=== PATIENT | female | born 1955 | race Caucasian/White ===

== ENCOUNTER 2024-07-21 09:51 | Emergency (ER) | payer MEDICARE, MEDICAID, SELFPAY ==
[2024-07-21 09:53] VITALS: BP 138/94; PULSE 97; TEMP 36.7; O2SAT 94; BMI 37.1
--- NOTE | 2024-07-21 10:00 | ED_ITS ---
HPI HPI - General Adult General Chief complaint: Abdominal Pain Stated complaint: ABDOMINAL PAIN Time Seen by Provider: 07/21/24 09:54 Mode of arrival: walk-in History of Present Illness HPI narrative: 68 female presents to the emergency department for pain in her abdomen. It is in her right upper quadrant and she thinks it might be her gallbladder. She has never been diagnosed with any gallbladder issues in the past. She has had it for 4 days and she has had some vomiting. No trauma or fever or hematemesis. The pain is continuous. She has not been able to to eat or drink much at all. Related Data Home Medications ?Medication ?Instructions ?Recorded ?Confirmed atorvastatin 80 mg tablet 80 mg PO DAILY 07/21/24 07/21/24 clopidogrel 75 mg tablet 75 mg PO DAILY 07/21/24 07/21/24 fluoxetine 20 mg capsule 20 mg PO DAILY 07/21/24 07/21/24 furosemide 40 mg tablet 40 mg PO DAILY 07/21/24 07/21/24 gabapentin 300 mg capsule 300 mg PO DAILY 07/21/24 07/21/24 losartan 50 mg tablet 50 mg PO DAILY 07/21/24 07/21/24 metformin 500 mg tablet 500 mg PO BID 07/21/24 07/21/24 pantoprazole 40 mg tablet,delayed 40 mg PO DAILY 07/21/24 07/21/24 release potassium chloride 20 mEq 20 meq PO DAILY 07/21/24 07/21/24 tablet,extended release(part/cryst) Previous Rx's ?Medication ?Instructions ?Recorded acetaminophen 300 mg-codeine 30 mg 1 tab PO Q6H PRN pain 5 days #20 07/21/24 tablet tabs ondansetron 4 mg disintegrating 4 mg PO Q6H PRN nausea and 07/21/24 tablet vomiting #20 tabs Allergies Allergy/AdvReac Type Severity Reaction Status Date / Time diphenhydramine (From AdvReac Severe Anaphylaxis Verified 07/21/24 09:53 Benadryl) Opioid HPI Opioid Management Most Recent Opioid Data: No Data to Display Review of Systems ROS Narrative A ten point review of systems is negative except as noted above. PFSH PFSH Social History Little interest or pleasure in doing things: not at all Feeling down, depressed, or hopeless: not at all Exam Narrative Exam Narrative: Nurses note and vital signs reviewed and patient is not hypoxic. General: The patient appears well and in no apparent distress. Skin: Warm, dry, no pallor noted. There is no rash noted. Head: Normocephalic, atraumatic Eye: Normal conjunctiva, no drainage Ears, Nose, Mouth, and Throat: oral mucosa is moist. Nares patent. Cardiovascular: Regular Rate and Rhythm Respiratory: Patient is in no distress, no accessory muscle use, lungs are clear to auscultation, no wheezing, rales or rhonchi Back: non-tender GI: Soft and tender in the right upper quadrant. Musculoskeletal: The patient has no evidence of calf tenderness, no pitting edema, symmetrical pulses noted bilaterally Neurological: A&O, normal speech Psychiatric: Cooperative Constitutional Vital Signs, click to edit/add: Last Vital Signs Temp 98.0 F 07/21/24 09:53 Pulse 97 H 07/21/24 10:56 Resp 18 07/21/24 10:56 BP 111/88 07/21/24 10:56 Pulse Ox 98 07/21/24 10:56 O2 Del Method Room Air 07/21/24 09:53 Course Vital Signs Vital signs: Vital Signs Temperature 98.0 F 07/21/24 09:53 Pulse Rate 97 H 07/21/24 09:53 Respiratory Rate 18 07/21/24 09:53 Blood Pressure 138/94 H 07/21/24 09:53 Pulse Oximetry 94 L 07/21/24 09:53 Oxygen Delivery Method Room Air 07/21/24 09:53 Temperature 98.0 F 07/21/24 09:53 Pulse Rate 97 H 07/21/24 10:56 Respiratory Rate 18 07/21/24 10:56 Blood Pressure 111/88 07/21/24 10:56 Pulse Oximetry 98 07/21/24 10:56 Oxygen Delivery Method Room Air 07/21/24 09:53 Medical Decision Making MDM Narrative Medical decision making narrative: Gallstones are identified. No evidence of hepatitis or pancreatitis. She does not have acute cholecystitis. She is able to be discharged home with referral to general surgery and she will follow-up promptly. She was provided prescriptions for Tylenol 3 and Zofran. Treatment diagnosis and follow-up were discussed with the patient. Differential Diagnosis Differential Diagnosis: Biliary colic, acute cholecystitis, pancreatitis, hepatitis Lab Data Lab results reviewed: Yes I reviewed the patient's lab results Labs: Lab Results 07/21/24 Range/Units 10:00 WBC 12.4 H (4.0-11.0) 10^3/uL RBC 6.52 H (4.20-5.40) 10^6/uL Hgb 16.9 H (12.0-16.0) g/dL Hct 52.6 H (36.0-48.0) % MCV 80.7 L (81.0-99.0) fL MCH 25.9 L (26.7-34.0) pg MCHC 32.1 (29.9-35.2) g/dL RDW 13.9 (11.0-15.0) % Plt Count 291 (150-450) 10^3/uL MPV 11.6 (9.5-13.5) fL Neut % (Auto) 55.9 (43.0-75.0) % Lymph % (Auto) 33.1 (20.5-60.0) % [place] % (Auto) 10.2 (1.7-12.0) % Eos % (Auto) 0.3 L (0.9-7.0) % Baso % (Auto) 0.3 (0.2-2.0) % Neut # (Auto) 6.9 H (1.4-6.5) 10^3/uL Lymph # (Auto) 4.1 H (1.2-3.8) 10^3/uL [place] # (Auto) 1.3 H (0.3-0.8) 10^3/uL Eos # (Auto) 0.0 (0.0-0.7) 10^3/uL Baso # (Auto) 0.0 (0.0-0.1) 10^3/uL Abs Immat Gran (auto) 0.03 (0.00-0.03) 10^3/uL Imm/Tot Granulo (auto) 0.2 (0.0-0.5) % Sodium 135 L (136-145) mmol/L Potassium 4.6 (3.5-5.1) mmol/L Chloride 96 L (98-107) mmol/L Carbon Dioxide 26.7 (21.0-32.0) mmol/L Anion Gap 16.9 BUN 26.0 H (7.0-18.0) mg/dL Creatinine 1.49 H (0.55-1.02) mg/dL Est GFR ( Amer) 42 L (>=60 mL/min/1.73m^2) Est GFR (Non-Af Amer) 35 L (>=60 mL/min/1.73m^2) BUN/Creatinine Ratio 17.4 Glucose 233 H (74-106) mg/dL Calcium 10.0 (8.5-10.1) mg/dL Total Bilirubin 0.8 (0.2-1.0) mg/dL Direct Bilirubin 0.2 (0.0-0.2) mg/dL AST 27 (15-37) U/L ALT 25 (14-59) U/L Alkaline Phosphatase 100 (46-116) U/L Total Protein 8.4 H (6.4-8.2) g/dL Albumin 4.1 (3.4-5.0) g/dL Globulin 4.3 g/dL Albumin/Globulin Ratio 1.0 Amylase 44 (25-115) U/L Lipase 24.0 (16.0-77.0) U/L Imaging Data Right upper quadrant ultrasound: Radiologist's impression: ITS Impressions Upper Quadrant Ultrasound 07/21/24 10:00 IMPRESSION: MILDLY HYDROPIC GALLBLADDER WITH CHOLELITHIASIS. BORDERLINE PROMINENT COMMON DUCT, UNDETERMINED ETIOLOGY. Impression dictated by: Connie Jaffe M.D.07/21/2024 10:44 AM Dictation Location: [place] [address] Electronically authenticated by: [id number] Y Date: 07/21/2024 10:44 Discharge Plan Discharge Chief Complaint: Abdominal Pain Clinical Impression: Biliary colic, Cholelithiasis Patient Disposition: Home, Self-Care Time of Disposition Decision: 10:58 Condition: Good Mode of Transportation: Private Vehicle Prescriptions / Home Meds: New acetaminophen-codeine 300-30 mg tablet 1 tab PO Q6H PRN (Reason: pain) 5 Days Qty: 20 0RF ondansetron 4 mg tablet,disintegrating 4 mg PO Q6H PRN (Reason: nausea and vomiting) Qty: 20 0RF No Action atorvastatin 80 mg tablet 80 mg PO DAILY clopidogrel 75 mg tablet 75 mg PO DAILY fluoxetine 20 mg capsule 20 mg PO DAILY furosemide 40 mg tablet 40 mg PO DAILY gabapentin 300 mg capsule 300 mg PO DAILY losartan 50 mg tablet 50 mg PO DAILY metformin 500 mg tablet 500 mg PO BID pantoprazole 40 mg tablet,delayed release (DR/EC) 40 mg PO DAILY potassium chloride 20 mEq tablet,ER particles/crystals 20 meq PO DAILY Print Language: Upper Sorbian Instructions: Biliary Colic (ED), Gallstones (ED) Referrals: Ji Roldan MD [Primary Care Provider] - 1 week Fabricio Evans MD [Physician] - As soon as possible
--- NOTE | 2024-07-21 10:00 | US_ITS ---
The [address] [address] Patient Name: SAMREEN DAWSON MRN: [id number] date: 1955 Sex: F Assigned Patient Location: ER Current Patient Location: ED.MAIN Accession/Order Number: [id number] Exam Date: 07/21/2024 10:35 Report Date: 07/21/2024 10:44 At the request of: JESI IZQUIERDO MD Procedure: US right upper quadrant LIMITED RIGHT UPPER QUADRANT ABDOMINAL ULTRASOUND CLINICAL HISTORY: Right upper quadrant pain for the past few days. COMPARISON: None The gallbladder is mildly hydropic. There are multiple tiny layering echogenic gallstones. No wall thickening or pericholecystic fluid. No sonographic Montemayor sign was reported. No intrahepatic biliary dilatation is evident. The common duct is borderline prominent measuring 6 mm. The liver is normal in echogenicity. No intrahepatic masses are seen. There is appropriate hepatopetal flow within the main portal vein. The pancreas shows no significant sonographic abnormality. Cursory evaluation of the right kidney reveals no hydronephrosis or fluid within Gardner's pouch. US/US right upper quadrant IMPRESSION: MILDLY HYDROPIC GALLBLADDER WITH CHOLELITHIASIS. BORDERLINE PROMINENT COMMON DUCT, UNDETERMINED ETIOLOGY. Impression dictated by: Connie Jaffe M.D.07/21/2024 10:44 AM Dictation Location: [place] [address] Electronically authenticated by: [id number] Y Date: 07/21/2024 10:44
[2024-07-21 10:05] LABS: Basophils Percent Auto 0.3 % (0.2-2.0); Eosinophils Percent Auto 0.3 % (0.9-7.0); Hematocrit 52.6 % (36.0-48.0); Hemoglobin 16.9 g/dL (12.0-16.0); Immature Granulocytes Abs Auto 0.03 10^3/uL (0.00-0.03); Immature Granulocytes Pct Auto 0.2 % (0.0-0.5); Lymphocytes Absolute Auto 4.1 10^3/uL (1.2-3.8); Lymphocytes Percent Auto 33.1 % (20.5-60.0); Mean Corpuscular HGB Conc 32.1 g/dL (29.9-35.2); Mean Corpuscular Hemoglobin 25.9 pg (26.7-34.0); Mean Corpuscular Volume 80.7 fL (81.0-99.0); Mean Platelet Volume 11.6 fL (9.5-13.5); Monocytes Absolute Auto 1.3 10^3/uL (0.3-0.8); Monocytes Percent Auto 10.2 % (1.7-12.0); Neutrophils Absolute Auto 6.9 10^3/uL (1.4-6.5); Neutrophils Percent Auto 55.9 % (43.0-75.0); Platelet Count 291 10^3/uL (150-450); Red Blood Count 6.52 10^6/uL (4.20-5.40); Red Cell Distribution Width 13.9 % (11.0-15.0); White Blood Count 12.4 10^3/uL (4.0-11.0)
[2024-07-21 10:23] LABS: Alanine Aminotransferase 25 U/L (14-59); Albumin Level 4.1 g/dL (3.4-5.0); Alkaline Phosphatase 100 U/L (46-116); Amylase 44 U/L (25-115); Anion Gap 16.9; Aspartate Amino Transferase 27 U/L (15-37); BUN Creatinine Ratio 17.4; Bilirubin Direct 0.2 mg/dL (0.0-0.2); Bilirubin Total 0.8 mg/dL (0.2-1.0); Carbon Dioxide 26.7 mmol/L (21.0-32.0); Chloride 96 mmol/L (98-107); Estimated GFR (African America 42 (>=60 mL/min/1.73m^2); Estimated GFR (Non-African Ame 35 (>=60 mL/min/1.73m^2); Globulin 4.3 g/dL; Glucose 233 mg/dL (74-106); Potassium 4.6 mmol/L (3.5-5.1); Sodium 135 mmol/L (136-145); Total Protein 8.4 g/dL (6.4-8.2)
[2024-07-21 10:56] VITALS: BP 111/88; PULSE 97; O2SAT 98
== END 2024-07-21 11:07 | disposition home or self-care (01) ==
PROVIDERS: Emergency Provider Emergency Medicine; PCP Family Medicine
DX: K80.70 Calculus of gallbladder and bile duct without cholecystitis without obstruction (principal)
CPT/HCPCS: 36415; 76705; 80048; 80076; 82150; 83690; 85025; 99285

== ENCOUNTER 2024-07-27 | Emergency (ER) | payer MEDICARE, MEDICAID, SELFPAY ==
[2024-07-27 00:01] VITALS: BP 150/93; PULSE 92; TEMP 36.7; O2SAT 96; BMI 29.1
--- OUTSIDE RECORDS SUMMARY | 2024-07-27 00:11 | XMS_ITS | CCD ---
Author Organization [facility] Care Team Providers Care Prenatal Genetic Counselor Name Role Phone Manju Preston Primary Care Provider Bladimir Brumfield Admitting Unavailable Bladimir Brumfield Attending Unavailable MANJU PRESTON Primary Care Unavailable UNKNOWN, PHYSICIAN Referring Unavailable MS Procedure Practitioner Unavailab le Bladimir Brumfield Surgeon Unavailable MS Procedure Practitioner Unavailab le UNKNOWN, PROVIDER Surgeon Unavailable Manju Preston Primary Care Provider MANJU PRESTON Primary Care Unavailable RITCHIE BRUMFIELD Referring Unavailable MANJU PRESTON Primary Care Unavailable CRYSTAL NAVARRO Admitting Unavailable SANCHO PHELAN Referring Unavailable MANJU PRESTON Primary Care Unavailable LAKSHMI, YVAN W Consulting Unavailable HUSSEIN SAMS Attending Unavailable HYACINTH BEAUCHAMP Admitting Unavailable HAIDER TORRES Referring Unavailable MANJU PRESTON Primary Care Unavailable LASHAE NAVARROSIN Consulting Unavailable JESSA BUCHANAN Attending Unavailable LAKSHMI, YVAN W Consulting Unavailable ROGERS LIULLA Consulting Unavailable MANJU PRESTON Primary Care Unavailable MARNI ORANTES Consulting Unavailable KIM GOLD Admitting Unavailable ZIYAD MALLORY Attending Unavailable MARGOTH PRINCE Consulting Unavailable MANJU PRESTON Primary Care Unavailable GALDINO LEY Consulting Unavailable CHARLIE WATSON Referring Unavailable OSMAN, ZAINULABEDIN Admitting Unavailable OSMAN, ZAINULABEDIN Attending Unavailable TUCKER GRADY Consulting Unavailable OSMAN, CYNTHIABEDIN Consulting Unavailable AVASTHI, VICTORIANO Consulting Unavailable Manju Preston Primary Care Provider [phone] ANIKA STONE Referring Unavailable AICHHOLDexter MANJU J. Primary Care Unavailable GABRIELA, ALI F O Referring Unavailable AICHNICKY MANJU J. Primary Care Unavailable GABRIELA ALI F O Referring Unavailable AICHHOLDexter MANJU J. Primary Care Unavailable RITCHIE BRUMFIELD Referring Unavailable AICHHOLZ, MANJU J. Primary Care Unavailable AICHHOLZ, PLACEMENT ASSISTANT MNAJU Admitting Unavailable AICHHOLZ, PLACEMENT ASSISTANT MANJU Attending Unavailable AICHHOLZ, PLACEMENT ASSISTANT MANJU Primary Care Unavailable HIGHLANDER, KORINA Dunbar Admitting Unavailable HIGHLANDER, KORINA Dunbar Attending Unavailable AICHHOLZ, PLACEMENT ASSISTANT MANJU Primary Care Unavailable HIGHLANDER, PETER D Admitting Unavailable HIGHLANDER, KORINA Dunbar Attending Unavailable AICHHOLZ, PLACEMENT ASSISTANT MANJU Primary Care Unavailable HIGHLANDER, KORINA Dunbar Admitting Unavailable HIGHLANDER, KORINA Dunbar Attending Unavailable AICHHOLZ, PLACEMENT ASSISTANT MANJU Primary Care Unavailable AICHHOLZ, PLACEMENT ASSISTANT MANJU Admitting Unavailable AICHHOLZ, PLACEMENT ASSISTANT MANJU Attending Unavailable AICHHOLZ, PLACEMENT ASSISTANT MANJU Primary Care Unavailable AICHHOLZ, PLACEMENT ASSISTANT MANJU Admitting Unavailable AICHHOLZ, PLACEMENT ASSISTANT MANJU Attending Unavailable AICHHOLZ, PLACEMENT ASSISTANT MANJU Primary Care Unavailable AICHHOLZ, PLACEMENT ASSISTANT MANJU Consulting Unavailable AICHHOLZ, PLACEMENT ASSISTANT MANJU Admitting Unavailable AICHHOLZ, PLACEMENT ASSISTANT MANJU Attending Unavailable AICHHOLZ, PLACEMENT ASSISTANT MANJU Primary Care Unavailable AICHHOLZ, PLACEMENT ASSISTANT MANJU Consulting Unavailable Allergies Allergy Classification Reported Allergen(s) Allergy Type Date of Onset Reaction(s) Facility diphenhydrAMINE (2 sources) diphenhydrAMINE Drug Allergy 0 Anaphylaxis [facility] Opioid Agonists (2 sources) Codeine Drug Allergy 0 Anaphylaxis [facility] (10 sources) Codeine Drug Allergy 0 Anaphylaxis [place], [place] (11 sources) diphenhydrAMINE Drug Allergy 0 Anaphylaxis [place] (2 sources) Codeine Drug Allergy 3 [facility] (2 sources) diphenhydrAMINE Drug Allergy 3 [facility] Medications Current Medications Medication Drug Class(es) Dates Sig (Normalized) Sig (Original) acetaminophen 325 mg oral tablet (7 sources) Start: 02-15-2020 acetaminophen (TYLENOL) tablet 650 mg Start: 02-14-2020 acetaminophen (TYLENOL) tablet 650 mg Start: 01-30-2020 acetaminophen (TYLENOL) tablet 650 mg Start: 01-25-2020 acetaminophen (TYLENOL) tablet 650 mg Start: 12-11-2019 acetaminophen (TYLENOL) tablet 650 mg Start: 08-26-2019 acetaminophen (TYLENOL) tablet 650 mg Start: 07-18-2019 acetaminophen (TYLENOL) tablet 650 mg acetaZOLAMIDE 250 mg oral tablet (8 sources) Carbonic Anhydrase Inhibitor Start: 12-13-2019 End: 02-17-2020 acetaZOLAMIDE (DIAMOX) 250 MG tablet One tab every Thursday and 20 tablet 3 12/14/2019 Active albuterol 0.83 mg/ml inhalant solution (20 sources) beta2-Adrenergic Agonist Start: 02-17-2020 albuterol (PROVENTIL ) nebulizer solution 2.5 mg Start: 01-30-2020 2.5 mg, Nebuli zation, EVERY 6 HOURS PRN, Wheezing, Starting Thu01/30/20 at 0850 Start: 01-30-2020 take 2 puff(s) by in halation every six hours as needed for wheezing 2 puff, Inhalation, EVERY 6 HOURS PRN, Wheezing, Starting Thu01/30/20 at 0850 Start: 01-25-2020 take 2 puff(s) by in halation every six hours as needed for wheezing 2 puff, Inhalation, EVERY 6 HOURS PRN, Wheezing, Starting Thu01/25/20 at 0233 Start: 12-13-2019 albuterol (PRO VENTIL) nebulizer solution 2.5 mg Start: 08-26-2019 albuterol sulf ate HFA 108 (90 Base) MCG/ACT inhaler 2 puff Start: 07-18-2019 End: 08-26-2019 take 2 puff(s) by inhalation every six hours as needed for wheezing 2 puff, Inhalation, EVERY 6 HOURS PRN, Wheezing, Starting Thu08/26/19 at 1114 albuterol (PROVE NTIL) (2.5 MG/3ML) 0.083% nebulizer solution Take 2.5 mg by nebulization every 6 hours as needed for Wheezing 0 Active take 2 puff(s) by in halation every six hours as needed for wheezing albuterol sulfate HFA (VENTOLIN HFA) 108 (90 Base) MCG/ACT inhaler Inhale 2 puffs into the lungs every 6 hours as needed for Wheezing 0 Active albuterol 0.833 mg/ml / ipratropium bromide 0.167 mg/ml inhalant solution (2 sources) Anticholinergic, beta2-Adrenergic Agonist Start: 01-30-2020 ipratropium-albuterol (DUONEB) nebulizer solution 1 ampule Start: 12-11-2019 End: 12-13-2019 ipratropium-albuterol (DUONE B) nebulizer solution 1 ampule albuterol sulfate HFA 108 (90 Base) MCG/ACT inhaler 2 puff (1 source) Start: 08-26-2019 albuterol sulf ate HFA 108 (90 Base) MCG/ACT inhaler 2 puff aspirin 81 mg delayed release oral tablet (19 sources) Platelet Aggregation Inhibitor, Nonsteroidal Anti-inflammatory Drug Start: 02-14-2020 take 81 mg by mouth once daily 81 mg, Oral, DAILY, First dose on Thu02/14/20 at 0900 Start: 01-30-2020 take 81 mg by mouth once daily 81 mg, Oral, DAILY, First dose on Thu01/30/20 at 1000 Start: 01-25-2020 take 81 mg by mouth once daily 81 mg, Oral, DAILY, First dose on Thu01/25/20 at 0900 Start: 12-11-2019 take 81 mg by mouth once daily 81 mg, Oral, DAILY, First dose on Thu12/11/19 at 0900 Start: 08-26-2019 aspirin EC tab let 81 mg Start: 07-19-2019 take 81 mg by mouth once daily 81 mg, Oral, DAILY, First dose on Thu07/19/19 at 0900 take 1 tablet by mouth once silverio y aspirin 81 MG tablet Take 81 mg by mouth daily 0 Active atorvastatin 80 mg oral tablet (19 sources) HMG-CoA Reductase Inhibitor Start: 09-04-2020 take 1 tablet by mouth once daily atorvastatin (LIPITOR) 80 MG tablet Indications: Chronic diastolic congestive heart failure (HCC) , Severe aortic stenosis , S/P TAVR (transcatheter aortic valve replacement) , Coronary artery disease involving [place]ree coronary artery of [place]ree heart without angina pectoris , S/P angioplasty with stent , PAF (paroxysmal atrial fibrillation) ([facility]) Take 1 tablet by mouth daily 90 tablet 3 09/04/2020 Active Start: 12-11-2019 take 80 mg by mouth once daily 80 mg, Oral, DAILY, First dose on Thu02/14/20 at 0900 Start: 08-26-2019 take 80 mg by mouth once daily 80 mg, Oral, NIGHTLY, First dose on Thu08/26/19 at 2100 Start: 07-19-2019 take 80 mg by mouth once daily 80 mg, Oral, DAILY, First dose on Thu07/19/19 at 0900 clopidogrel 75 mg oral tablet (4 sources) [id number] Platelet Inhibitor Start: 09-04-2020 take 1 tablet by mouth once daily clopidogrel (PLAVIX) 75 MG tablet Indications: Chronic diastolic congestive heart failure ([facility]) , Severe aortic stenosis , S/P TAVR (transcatheter aortic valve replacement) , Coronary artery disease involving [place]ree coronary artery of [place] heart without angina pectoris , S/P angioplasty with stent , PAF (paroxysmal atrial fibrillation) ([facility]) Take 1 tablet by mouth daily 90 tablet 3 09/04/2020 Active Start: 02-18-2020 take 1 tablet by antonio th once daily clopidogrel (PLAVIX) 75 MG tablet Take 1 tablet by mouth daily 30 tablet 3 02/18/2020 Active Start: 02-16-2020 clopidogrel (P LAVIX) tablet 75 mg dexamethasone 4 mg oral tablet (1 source) Corticosteroid Start: 12-13-2019 End: 12-16-2019 dexamethasone (DECADRON) tablet 6 mg docusate sodium 100 mg oral capsule (1 source) Start: 01-31-2020 docusate sodiu m (COLACE) capsule 100 mg docusate sodium 50 mg / sennosides, retirement 8.6 mg oral tablet (1 source) Start: 02-14-2020 sennosides-doc usate sodium (SENOKOT-S) 8.6-50 MG tablet 1 tablet 0.4 ml enoxaparin sodium 100 mg/ml prefilled syringe (4 sources) Low Molecular Weight Heparin Start: 01-30-2020 enoxaparin (LOVENOX) injection 40 mg Start: 12-11-2019 inject 40 mg by subc utaneous injection once daily 40 mg, Subcutaneous, DAILY, First dose on 12/11/19 at 0900 Start: 08-26-2019 inject 40 mg by subc utaneous injection once daily 40 mg, Subcutaneous, DAILY, First dose on Thu08/26/19 at 1130 Start: 07-19-2019 inject 40 mg by subc utaneous injection once daily 40 mg, Subcutaneous, DAILY, First dose on Thu07/19/19 at 0900 fentaNYL (SUBLIMAZE) injection 25 mcg (1 source) Start: 02-14-2020 fentaNYL (SUBLIMAZE) injection 25 mcg FLUoxetine 20 mg oral capsule (19 sources) Serotonin Reuptake Inhibitor Start: 02-14-2020 take 20 mg by mouth once daily 20 mg, Oral, DAILY, First dose on Thu02/14/20 at 0900 Start: 01-30-2020 take 20 mg by mouth once daily 20 mg, Oral, DAILY, First dose on Thu01/30/20 at 1000 Start: 01-25-2020 take 20 mg by mouth once daily 20 mg, Oral, DAILY, First dose on Thu01/25/20 at 0900 Start: 12-11-2019 take 20 mg by mouth once daily 20 mg, Oral, DAILY, First dose on Thu12/11/19 at 0900 Start: 08-26-2019 FLUoxetine (MS OZAC) capsule 20 mg Start: 07-19-2019 take 20 mg by mouth once daily 20 mg, Oral, DAILY, First dose on Thu07/19/19 at 0900 take 1 tablet by antonio once daily FLUoxetine (PROZAC) 20 MG tablet Take 20 mg by mouth daily 0 Active 30 actuat fluticasone furoate 0.1 mg/actuat / umeclidinium 0.0625 mg/actuat / vilanterol 0.025 mg/actuat dry powder inhaler (8 sources) Anticholinergic, Corticosteroid, beta2-Adrenergic Agonist Start: 08-27-2019 mxyepquuvig-puqsuhski-isnnyj (TRELEGY ELLIPTA) 100-62.5-25 MCG/INH inhaler 1 puff Start: 07-19-2019 End: 12-11-2019 take 1 puff(s) by inhalation once daily 1 puff, Inhalation, DAILY, First dose on Thu07/19/19 at 0900 Rinse mouth out with water (without swallowing) after every dose. furosemide 40 mg oral tablet (20 sources) Loop Diuretic Start: 09-04-2020 take 1 tablet by mouth once daily furosemide (LASIX) 40 MG tablet Indications: Chronic diastolic congestive heart failure (HCC) , Severe aortic stenosis , S/P TAVR (transcatheter aortic valve replacement) , Coronary artery disease involving [place]ree coronary artery of [place] heart without angina pectoris , S/P angioplasty with stent , PAF (paroxysmal atrial fibrillation) ([facility]) Take 1 tablet by mouth daily 90 tablet 3 09/04/2020 Active Start: 02-14-2020 End: 02-16-2020 furosemide (LASIX) injection 20 mg Start: 02-02-2020 furosemide (LA SIX) tablet 40 mg Start: 01-30-2020 End: 02-01-2020 furosemide (LASIX) injection 80 mg Start: 01-30-2020 End: 02-02-2020 furosemide (LASIX) injection 40 mg Start: 01-25-2020 furosemide (LA SIX) injection 40 mg Start: 12-14-2019 End: 02-03-2020 take 1 tablet by mouth twice daily furosemide (LASIX) 40 MG tablet Take 1 tablet by mouth 2 times daily 60 tablet 3 12/14/2019 02/03/2020 Discontinued (REORDER) Start: 12-11-2019 End: 12-12-2019 furosemide (LASIX) injection 40 mg Start: 08-30-2019 End: 12-14-2019 take 1 tablet by mouth once daily furosemide (LASIX) 40 MG tablet Take 1 tablet by mouth daily 60 tablet 3 08/30/2019 12/14/2019 Discontinued (REORDER) Start: 08-30-2019 take 1 tablet by antonio th once daily furosemide (LASIX) 40 MG tablet Take 1 tablet by mouth daily 60 tablet 3 08/30/2019 Active Start: 08-29-2019 furosemide (LA SIX) tablet 40 mg Start: 08-26-2019 End: 08-28-2019 40 mg, Intravenous, 2 TIMES DAILY, First dose on Thu08/26/19 at 1800 Start: 07-21-2019 End: 08-29-2019 take 1 tablet by mouth once daily furosemide (LASIX) 20 MG tablet Take 1 tablet by mouth daily 30 tablet 5 07/21/2019 Active Start: 07-19-2019 End: 07-20-2019 40 mg, Intravenous, DAILY, F irst dose on Thu07/19/19 at 0900 Start: 07-18-2019 furosemide (LA SIX) injection 40 mg glucagon (rdna) 1 mg injection (2 sources) Antihypoglycemic Agent Start: 01-30-2020 glucago n (rDNA) injection 1 mg Start: 12-11-2019 glucagon (rDNA ) injection 1 mg 1000 ml glucose 500 mg/ml injection (6 sources) Start: 01-30-2020 glucose (GLUTO SE) 40 % oral gel 15 g Start: 01-30-2020 dextrose 50 % IV solution Start: 01-30-2020 dextrose 5 % s olution Start: 12-11-2019 glucose (GLUTO SE) 40 % oral gel 15 g Start: 12-11-2019 dextrose 50 % IV solution Start: 12-11-2019 dextrose 5 % s olution 4 ml labetalol hydrochloride 5 mg/ml cartridge (1 source) beta-Adrenergic Jalen Start: 02-15-2020 labetalol (NORMODYNE;TRANDATE) injection 10 mg Magnesium (7 sources) Magnesium 400 MG TABS Take by mouth 0 Active magnesium hydroxide 80 mg/ml oral suspension (1 source) Start: 02-14-2020 magnesium hydroxide (MILK OF MAGNESIA) 400 MG/5ML suspension 30 mL magnesium oxide 400 mg oral tablet (1 source) Start: 01-30-2020 take 400 mg by mouth once daily 400 mg, Oral, DAILY, First dose on Thu01/30/20 at 1000 50 ml magnesium sulfate 40 mg/ml injection (3 sources) Start: 01-30-2020 magnesium sulfate 2 g in 50 mL IVPB premix Start: 12-11-2019 take 2 mL intravenou s route every hour as needed 2 g, Intravenous, at 25 mL/hr, Administer over 2 Hours, PRN, Other, Magnesium Replacement, Starting 12/11/19 at 0424 Mg Lab Replacement Action 1.4-1.6 2 gram IVPB x 1 doses (2 grams total) 1.0-1.3 2 gram IVPB x 2 doses (4 grams total) Less than 1.0 CALL PHYSICIAN and 2 gram IVPB x 2 doses (4 grams total) Infuse at 1 gram/hr. Repeat Mag level next AM. Not for use in Patients with CrCl less than 30 mL/min. Start: 08-27-2019 End: 08-27-2019 magnesium sulfate 1 g in dex trose 5% 100 mL IVPB metoprolol tartrate 25 mg oral tablet (13 sources) beta-Adrenergic Jalen Start: 09-04-2020 take 0.5 tablet by mouth twice daily metoprolol tartrate (LOPRESSOR) 25 MG tablet Indications: Chronic diastolic congestive heart failure (HCC) , Severe aortic stenosis , S/P TAVR (transcatheter aortic valve replacement) , Coronary artery disease involving [place] coronary artery of [place] heart without angina pectoris , S/P angioplasty with stent , PAF (paroxysmal atrial fibrillation) ([facility]) Take 0.5 tablets by mouth 2 times daily HOLD for SBP 180 tablet 3 09/04/2020 Active Start: 02-17-2020 metoprolol tar trate (LOPRESSOR) tablet 12.5 mg Start: 01-30-2020 End: 01-30-2020 metoprolol tartrate (LOPRESS OR) tablet 12.5 mg Start: 12-14-2019 End: 01-27-2020 take 0.5 tablet by mouth twice daily metoprolol tartrate (LOPRESSOR) 25 MG tablet Take 0.5 tablets by mouth 2 times daily HOLD for SBP 60 tablet 0 01/27/2020 Active Start: 12-11-2019 metoprolol tar trate (LOPRESSOR) tablet 12.5 mg midodrine hydrochloride 10 mg oral tablet (3 sources) alpha-Adrenergic Agonist Start: 01-30-2020 End: 03-04-2020 take 1 tablet by mouth three times daily at mealtime midodrine (PROAMATINE) 10 MG tablet Take 1 tablet by mouth 3 times daily (with meals) Check you blood pressure daily. DO NOT take if blood pressure is GREATER than 130 90 tablet 0 02/03/2020 03/04/2020 Active montelukast 10 mg oral tablet (8 sources) Leukotriene Receptor Antagonist Start: 08-26-2019 take 10 mg by mouth once daily 10 mg, Oral, NIGHTLY, First dose on Thu08/26/19 at 2100 Start: 07-19-2019 End: 12-11-2019 take 10 mg by mouth once daily 10 mg, Oral, NIGHTLY, F irst dose on Thu07/19/19 at 0015 Oxygen (5 sources) OXYGEN Inhale 3- 4 L into the lungs continuous 0 Active pantoprazole 40 mg delayed release oral tablet (10 sources) Proton Pump Inhibitor Start: 08-24-19 21 take 1 tablet by mouth once daily before breakfast pantoprazole (PROTONIX) 40 MG tablet Indications: Gastroesophageal reflux disease, unspecified whether esophagitis present Take 1 tablet by mouth every morning (before breakfast) 90 tablet 3 08/23/2020 Active Start: 02-17-2020 take 1 tablet by antonio th once daily before breakfast pantoprazole (PROTONIX) 40 MG tablet Take 1 tablet by mouth every morning (before breakfast) 30 tablet 0 02/17/2020 Active Start: 02-14-2020 pantoprazole ( PROTONIX) injection 40 mg Start: 01-27-2020 End: 02-17-2020 take 1 tablet by mouth twice daily before mealtime pantoprazole (PROTONIX) 40 MG tablet Take 1 tablet by mouth 2 times daily (before meals) 60 tablet 0 01/27/2020 02/17/2020 Discontinued (Stop Taking at Discharge) Start: 01-25-2020 End: 01-26-2020 pantoprazole (PROTONIX) inje ction 40 mg polyethylene glycol 3350 51668 mg powder for oral solution (6 sources) Osmotic Laxative Start: 01-31-2020 polyethylene glycol (GLYCOLAX) packet 17 g Start: 01-25-2020 End: 01-25-2020 polyethylene glycol (GLYCOLA X) powder 238 g Start: 01-25-2020 polyethylene g lycol (GLYCOLAX) packet 17 g Start: 12-11-2019 17 g, Oral, DA KENDELL PRN, Constipation, Starting 12/11/19 at 0424 First line therapy for constipation Start: 08-26-2019 17 g, Oral, DA KENDELL PRN, Constipation, Starting 08/26/19 at 1114 First line therapy for constipation Start: 07-18-2019 17 g, Oral, DA KENDELL PRN, Constipation, Starting 07/18/19 at 2357 First line therapy for constipation microencapsulated potassium chloride 20 meq extended release oral tablet (20 sources) Start: 09-04-2020 take 1 tablet by mouth once daily potassium chloride (KLOR-CON M) 20 MEQ extended release tablet Indications: Chronic diastolic congestive heart failure (HCC) , Severe aortic stenosis , S/P TAVR (transcatheter aortic valve replacement) , Coronary artery disease involving [place]ree coronary artery of [place] heart without angina pectoris , S/P angioplasty with stent , PAF (paroxysmal atrial fibrillation) ([facility]) Take 1 tablet by mouth daily 90 tablet 3 09/04/2020 Active Start: 02-15-2020 End: 02-15-2020 potassium chloride 10 mEq/10 0 mL IVPB (Peripheral Line) Start: 01-31-2020 potassium chlo ride (KLOR-CON M) extended release tablet 20 mEq Start: 01-30-2020 potassium chlo ride 10 mEq/100 mL IVPB (Peripheral Line) Start: 01-30-2020 potassium chlo ride (KLOR-CON M) extended release tablet 40 mEq Start: 01-25-2020 take 1 tablet by antonio th once daily, then take 0.5 tablet by mouth, then take 0.5 tablet by mouth 20 mEq, Oral, DAILY, First dose on Thu01/25/20 at 0900 Do not crush, chew, or suck on tablet. Tablet may also be broken in half and each half swallowed separately. Start: 12-14-2019 End: 02-03-2020 take 1 tablet by mouth twice daily potassium chloride (KLOR-CON M) 20 MEQ extended release tablet Take 1 tablet by mouth 2 times daily 60 tablet 3 12/14/2019 02/03/2020 Discontinued (REORDER) Start: 12-11-2019 take 10 mL intraveno us route every hour as needed 10 mEq, Intravenous, at 100 mL/hr, PRN, Potassium Replacement, Starting 12/11/19 at 0424 K Lab Replacement Action 3.1-3.5 &nb sp; 10 mEq IVPB x 4 doses (40 mEq Total) 2.7-3.0 &nb sp; 10 mEq IVPB x 6 doses (60 mEq Total) < 2.7 & nbsp; CALL PHYSICIAN and 10 mEq IVPB x 6 doses (60 mEq Total) Infuse at 10 mEq/hr. Repeat Potassium lab 1 hour after final administration. Not for use in patients with CrCl less than 30 mL/min. Start: 08-26-2019 potassium chlo ride (KLOR-CON M) extended release tablet 40 mEq Start: 07-21-2019 End: 12-14-2019 take 1 tablet by mouth once daily, then take 0.5 tablet by mouth, then take 0.5 tablet by mouth 20 mEq, Oral, NIGHTLY, First dose on 12/11/19 at 2100 Do not crush, chew, or suck on tablet. Tablet may also be broken in half and each half swallowed separately. Promethazine (6 sources) Phenothiazine Start: 02-14-2020 promethazine ( PHENERGAN) tablet 12.5 mg Start: 01-30-2020 promethazine ( PHENERGAN) tablet 12.5 mg Start: 01-25-2020 promethazine ( PHENERGAN) tablet 12.5 mg Start: 12-11-2019 promethazine ( PHENERGAN) tablet 12.5 mg Start: 08-26-2019 promethazine ( PHENERGAN) tablet 12.5 mg Start: 07-18-2019 promethazine ( PHENERGAN) tablet 12.5 mg 1000 ml sodium chloride 9 mg /ml injection (18 sources) Start: 02-15-2020 0.9 % sodium c hloride infusion Start: 02-14-2020 End: 02-17-2020 sodium chloride flush 0.9 % injection 10 mL Start: 01-30-2020 sodium chlorid e flush 0.9 % injection 10 mL Start: 01-25-2020 sodium chlorid e flush 0.9 % injection 10 mL Start: 12-11-2019 10 mL, Intrave nous, EVERY 12 HOURS SCHEDULED (2 times per day), First dose on 12/11/19 at 0900 Start: 12-11-2019 take 10 mL intraveno us route once as needed 10 mL, Intravenous, PRN, Line Care, After every IV line use, Starting 12/11/19 at 0424 Start: 09-01-2019 sodium chlorid e flush 0.9 % injection 10 mL Start: 09-01-2019 0.9 % sodium c hloride infusion Start: 09-01-2019 sodium chlorid e flush 0.9 % injection 10 mL Start: 08-26-2019 10 mL, Intrave nous, EVERY 12 HOURS SCHEDULED (2 times per day), First dose on Thu08/26/19 at 1130 Start: 08-26-2019 take 10 mL intraveno us route once as needed 10 mL, Intravenous, PRN, Line Care, After every IV line use, Starting Thu08/26/19 at 1114 Start: 07-19-2019 10 mL, Intrave nous, EVERY 12 HOURS SCHEDULED (2 times per day), First dose on Thu07/19/19 at 0900 Start: 07-18-2019 take 10 mL intraveno us route once as needed 10 mL, Intravenous, PRN, Line Care, After every IV line use, Starting Thu07/18/19 at 2357 spironolactone 25 mg oral tablet (1 source) Aldosterone Antagonist Start: 12-11-2019 spirono lactone (ALDACTONE) tablet 25 mg 28 actuat tiotropium 0.0025 mg/actuat metered dose inhaler (12 sources) Anticholinergic Start: 02-16-2020 tiotropium (SP IRIVA RESPIMAT) 2.5 MCG/ACT inhaler 2 puff Start: 01-30-2020 take 2 puff(s) by in halation once daily 2 puff, Inhalation, DAILY, First dose on Thu01/30/20 at 1000 Start: 01-25-2020 take 2 puff(s) by in halation once daily 2 puff, Inhalation, DAILY, First dose on Thu01/25/20 at 0800 Start: 12-15-2019 take 2 puff(s) by in halation once daily tiotropium (SPIRIVA RESPIMAT) 2.5 MCG/ACT AERS inhaler Inhale 2 puffs into the lungs daily 1 Inhaler 1 12/15/2019 Active Start: 12-15-2019 take 2 puff(s) by in halation once daily tiotropium (SPIRIVA RESPIMAT) 2.5 MCG/ACT AERS inhaler Inhale 2 puffs into the lungs daily 1 Inhaler 1 12/15/2019 Active Start: 12-13-2019 tiotropium (SP IRIVA RESPIMAT) 2.5 MCG/ACT inhaler 2 puff Completed/Discontinued Medications Medication Drug Class(es) Dates Sig (Normalized) Sig (Original) azithromycin (ZITHROMAX) 500 mg in dextrose 5% 250 mL IVPB (1 source) Start: 02-14-2020 End: 02-14-2020 azithromycin (ZITHROMAX) 500 mg in dextrose 5% 250 mL IVPB benzocaine 200 mg/ml topical spray (3 sources) Standardized Chemical Allergen Start: 09-01-2019 End: 09-01-2019 benzocaine (HURRICAINE) 20 % oral spray calcium chloride 0.0014 meq/ml / potassium chloride 0.004 meq/ml / sodium chloride 0.103 meq/ml / sodium lactate 0.028 meq/ml injectable solution (1 source) Start: 02-14-2020 End: 02-14-2020 lactated ringers infusion cefepime (MAXIPIME) 1 g IVPB minibag (1 source) Start: 02-14-2020 End: 02-14-2020 cefepime (MAXIPIME) 1 g IVPB minibag chlorothiazide (DIURIL) 500 mg in sodium chloride 0.9 % 50 mL IVPB (1 source) Start: 01-30-2020 End: 01-30-2020 chlorothiazide (DIURIL) 500 mg in sodium chloride 0.9 % 50 mL IVPB 24 hr dilTIAZem hydrochloride 240 mg extended release oral capsule (19 sources) Calcium Channel Jalen Start: 12-23-2019 End: 02-17-2020 take 240 mg by mouth once daily 240 mg, Oral, DAILY, First dose on Thu01/30/20 at 1000 Do not crush or break. Hold for HR<55 or SBP<110 Start: 07-21-2019 End: 12-14-2019 take 240 mg by mouth once daily 240 mg, Oral, DAILY, F irst dose on Thu12/11/19 at 0900 Do not crush or break. Start: 07-20-2019 End: 07-21-2019 take 1 capsule by mouth once daily dilTIAZem (CARDIZEM CD) 120 MG extended release capsule Take 1 capsule by mouth daily 30 capsule 3 07/21/2019 07/21/2019 Discontinued Start: 07-19-2019 End: 07-21-2019 dilTIAZem (CARDIZEM) tablet 60 mg 2 ml famotidine 10 mg/ml injection (2 sources) Histamine-2 Receptor Antagonist Start: 02-14-2020 End: 02-14-2020 famotidine (PEPCID) injection 20 mg Start: 08-26-2019 take 20 mg by mouth twice silverio y 20 mg, Oral, 2 TIMES DAILY, First dose on Thu08/26/19 at 1130 250 ml heparin sodium, porcine 100 unt/ml injection (5 sources) Unfractionated Heparin, Anti-coagulant Start: 02-14-2020 End: 02-16-2020 heparin 25,000 units in dextrose 5% 250 mL infusion Start: 02-14-2020 End: 02-16-2020 heparin (porcine) injection 4,000 Units Start: 02-14-2020 End: 02-16-2020 heparin (porcine) injection 2,000 Units Start: 02-14-2020 End: 02-14-2020 heparin (porcine) injection 5,000 Units insulin lispro 100 unt/ml injectable solution (5 sources) Insulin Analog Start: 02-15-2020 End: 02-17-2020 insulin lispro (HUMALOG) injection vial 0-12 Units Start: 01-30-2020 insulin lispro (HUMALOG) injection vial 0-6 Units Start: 12-11-2019 insulin lispro (HUMALOG) injection vial 0-6 Units iopamidol (ISOVUE-370) 76 % injection 125 mL (1 source) Start: 09-14-2019 End: 09-14-2019 iopamidol (ISOVUE-370) 76 % injection 125 mL iopamidol (ISOVUE-370) 76 % injection 60 mL (1 source) Start: 09-01-2019 End: 09-01-2019 iopamidol (ISOVUE-370) 76 % injection 60 mL iopamidol (ISOVUE-370) 76 % injection 75 mL (1 source) Start: 07-18-2019 End: 07-18-2019 iopamidol (ISOVUE-370) 76 % injection 75 mL iron sucrose (VENOFER) 300 mg in sodium chloride 0.9 % 250 mL IVPB (1 source) Start: 01-25-2020 End: 01-25-2020 iron sucrose (VENOFER) 300 mg in sodium chloride 0.9 % 250 mL IVPB lisinopril 5 mg oral tablet (6 sources) Angiotensin Converting Enzyme Inhibitor Start: 08-30-2019 End: 12-11-2019 take 1 tablet by mouth once daily lisinopril (PRINIVIL;ZESTRIL) 5 MG tablet Take 1 tablet by mouth daily 30 tablet 3 08/30/2019 12/11/2019 Discontinued Start: 08-30-2019 take 1 tablet by antonio th once daily lisinopril (PRINIVIL;ZESTRIL) 5 MG tablet Take 1 tablet by mouth daily 30 tablet 3 08/30/2019 Active Start: 08-26-2019 take 5 mg by mouth o nce daily 5 mg, Oral, DAILY, First dose on Thu08/26/19 at 1130 methylPREDNISolone 40 mg injection (1 source) Corticosteroid Start: 02-14-2020 End: 02-14-2020 methylPREDNISolone sodium (SOLU-MEDROL) injection 40 mg metOLazone 2.5 mg oral tablet (1 source) Thiazide-like Diuretic Start: 12-12-2019 End: 12-12-2019 metOLazone (ZAROXOLYN) tablet 2.5 mg nitroglycerin 0.4 mg sublingual tablet (1 source) Nitrate Vasodilator Start: 08-26-2019 End: 08-26-2019 nitroGLYCERIN (NITROSTAT) SL tablet 0.4 mg Start: 08-26-2019 End: 08-26-2019 nitroGLYCERIN (NITROSTAT) SL tablet 0.4 mg 100 ml propofol 10 mg/ml injection (2 sources) General Anesthetic Start: 02-14-2020 End: 02-16-2020 propofol injection Start: 02-13-2020 End: 02-14-2020 propofol 1000 MG/100ML injec tion sennosides, retirement 8.6 mg oral tablet (1 source) Start: 01-25-2020 End: 01-25-2020 senna (SENOKOT) tablet 129 m g sodium polystyrene sulfonate 250 mg/ml oral suspension (1 source) Start: 01-30-2020 End: 01-30-2020 sodium polystyrene (KAYEXALA TE) 15 GM/60ML suspension 30 g Problems Active Problems Problem Classification Problem Date Documented Da te Episodic/Chronic Acute and unspecified renal failure (2 sources) Acute injury of kidney; Translations: [Acute kidney failure, unspecified] 01-31-2020 Episodic Acute and unspecified renal failure (4 sources) Acute injury of kidney; Translations: [LIBERTY (acute kidney injury)] 01-31-2020 Acute posthemorrhagic anemia (4 sources) Acute posthemorrhagic anemia; Translations: [Acute posthemorrhagic anemia] 01-29-2020 Episodic Cardiac dysrhythmias (20 sources) Paroxysmal atrial fibrillation; Translations: [Nonsustained ventricular tachycardia ] Onset: 0 08-27-2019 Chronic Chronic obstructive pulmonary disease and bronchiectasis (7 sources) Acute exacerbation of chronic obstructive airways disease; Translations: [Chronic obstructive lung disease] 01-30-2020 Chronic Chronic ulcer of skin (5 sources) Non-pressure chronic ulcer of right heel and midfoot limited to breakdown of skin; Translations: [N-PRSS CHR ULCR RT HEEL BRKDWN SKN] Onset: 2 Chronic Conduction disorders (10 sources) H/O: cardiac pacemaker in situ; Translations: [Cardiac pacemaker in situ] 01-30-2020 Chronic Congestive heart failure; nonhypertensive (20 sources) Acute on chronic diastolic heart failure; Translations: [Acute on chronic combined systolic and diastolic heart failure] Onset: 0 07-19-2019 Chronic Congestive heart failure; nonhypertensive (3 sources) Acute on chronic heart failure co-occurrent with normal ejection fraction; Translations: [Acute on chronic heart failure with preserved ejection fraction (HFpEF) ([facility])] 01-31-2020 Coronary atherosclerosis and other heart disease (10 sources) Coronary arteriosclerosis; Translations: [Coronary arteriosclerosis in [place] artery] Onset: 2 01-30-2020 Chronic Deficiency and other anemia (1 source) Anemia; Translations: [Anemia, unspecified type] Episodic Deficiency and other anemia (5 sources) Chronic anemia; Translations: [Anemia, unspecified] 01-31-2020 Episodic Deficiency and other anemia (5 sources) Normocytic anemia; Translations: [Anemia, unspecified] 01-30-2020 Episodic Deficiency and other anemia (1 source) Anemia, unspecified; Translations: [ANEMIA UNSPECIFIED] Onset: 3 Episodic Diabetes mellitus with complications (9 sources) Type 2 diabetes mellitus with unspecified complications; Translations: [Type 2 diabetes mellitus with diabetic neuropathy, unspecified] Onset: 2 Chronic Diabetes mellitus without complication (5 sources) Type 2 diabetes mellitus; Translations: [Type 2 diabetes mellitus with other specified complication] 01-30-2020 Chronic Diseases of white blood cells (5 sources) Leukocytosis; Translations: [Elevated white blood cell count, unspecified] 01-30-2020 Chronic Disorders of lipid metabolism (5 sources) Hyperlipidemia; Translations: [Hyperlipidemia, unspecified] 01-30-2020 Chronic Esophageal disorders (6 sources) Gastroesophageal reflux disease; Translations: [Gastro-esophageal reflux disease without esophagitis] 01-30-2020 Chronic Essential hypertension (6 sources) Essential hypertension; Translations: [Essential (primary) hypertension] Onset: 2 01-30-2020 Chronic Fluid and electrolyte disorders (5 sources) Hyperkalemia; Translations: [Hyperkalemia] 01-30-2020 Episodic Gastroduodenal ulcer (except hemorrhage) (5 sources) Peptic ulcer; Translations: [Peptic ulcer, site unspecified, unspecified as acute or chronic, without hemorrhage or perforation] 01-30-2020 Chronic Gastrointestinal hemorrhage (4 sources) Melena; Translations: [Melena] 01-29-2020 Episodic Heart valve disorders (20 sources) Aortic valve stenosis; Translations: [Aortic stenosis, non-rheumatic ] Onset: 0 08-26-2019 Chronic Lymphadenitis (4 sources) Mediastinal lymphadenopathy; Translations: [Localized enlarged lymph nodes] 01-29-2020 Episodic Other circulatory disease (2 sources) History of angioplasty; Translations: [Peripheral vascular angioplasty status with implants and grafts] Chronic Other circulatory disease (5 sources) H/O: hypertension; Translations: [Personal history of other diseases of the circulatory system] 01-31-2020 Episodic Other circulatory disease (4 sources) Drug-induced hypotension; Translations: [Hypotension due to drugs] 01-29-2020 Episodic Other circulatory disease (5 sources) History of cerebrovascular accident; Translations: [Personal history of transient ischemic attack (TIA), and cerebral infarction without residual deficits] 01-30-2020 Episodic Other circulatory disease (4 sources) H/O: heart disorder; Translations: [Personal history of other diseases of the circulatory system] 01-29-2020 Episodic Other circulatory disease (5 sources) History of hypotension; Translations: [Personal history of other diseases of the circulatory system] 01-31-2020 Episodic Other gastrointestinal disorders (5 sources) Personal history of other diseases of the digestive system; Translations: [History of gastroesophageal reflux disease] 01-31-2020 Episodic Other gastrointestinal disorders (5 sources) H/O: upper GIT hemorrhage; Translations: [Personal history of other diseases of the digestive system] 01-31-2020 Episodic Other lower respiratory disease (4 sources) History of chronic obstructive airway disease; Translations: [Personal history of other diseases of the respiratory system] 01-29-2020 Episodic Other nutritional; endocrine; and metabolic disorders (13 sources) Hypomagnesemia; Translations: [Hypomagnesemia] Onset: 0 08-27-2019 Chronic Other nutritional; endocrine; and metabolic disorders (4 sources) Obesity; Translations: [Morbid (severe) obesity due to excess calories] 02-14-2020 Chronic Other nutritional; endocrine; and metabolic disorders (4 sources) Personal history of other endocrine, nutritional and metabolic disease; Translations: [History of diabetes mellitus type 2] 01-29-2020 Episodic Other screening for suspected conditions (not mental disorders or infectious disease) (5 sources) Liver function tests abnormal; Translations: [Other specified abnormal findings of blood chemistry] 01-31-2020 Episodic Peripheral and visceral atherosclerosis (1 source) Peripheral vascular disease, unspecified; Translations: [PERIPHERAL VASCULAR DISEASE UNS] Onset: 3 Chronic Pleurisy; pneumothorax; pulmonary collapse (4 sources) Bilateral pleural effusion; Translations: [Pleural effusion, not elsewhere classified] 01-29-2020 Episodic Residual codes; unclassified (5 sources) Other general symptoms and signs; Translations: [Suspected COVID-19 virus infection] Onset: 0 08-27-2019 Episodic Respiratory failure; insufficiency; arrest (adult) (7 sources) [id number] respiratory failure; Translations: [Acute on chronic hypoxemic and hypercapnic respiratory failure] Onset: 0 08-28-2019 Chronic Respiratory failure; insufficiency; arrest (adult) (8 sources) Acute on chronic hypoxemic and hypercapnic respiratory failure; Translations: [Acute on chronic respiratory failure with hypoxia and hypercapnia (HCC)] Onset: 0 12-12-2019 Unclassified (1 source) Patient encounter status; Translations: [Screening procedure] Unclassified (3 sources) Protein level - finding; Translations: [Elevated troponin] 01-30-2020 Past or Other Problems Problem Classification Problem Date Documented Date Episodic/Chronic Immunizations and screening for infectious disease (8 sources) Contact with and (suspected) exposure to other viral communicable diseases; Translations: [Suspected disease caused by 2019-nCoV] Onset: 08-26-2019 08-27-2019 Episodic Open wounds of extremities (4 sources) Unspecified open wound, right foot, initial encounter; Translations: [UNS OPEN WOUND RIGHT FOOT INITIAL] Onset: 01-20-2022 Episodic Other hematologic conditions (2 sources) Protein level - finding; Translations: [Other specified abnormalities of plasma proteins] Resolved: 02-29-2020 02-29-2020 Episodic Other lower respiratory disease (14 sources) Hypoxia; Translations: [Hypoxemia] Onset: 08-26-2019 08-26-2019 Episodic Other lower respiratory disease (5 sources) Dyspnea; Translations: [Shortness of breath] Onset: 01-30-2020 01-30-2020 Episodic Respiratory failure; insufficiency; arrest (adult) (5 sources) Acute respiratory failure; Translations: [Acute respiratory failure with hypoxia] Onset: 02-13-2020 02-13-2020 Episodic Screening and history of mental health and substance abuse codes (1 source) Personal history of nicotine dependence; Translations: [PERSONAL HISTORY OF NICOTINE DEPEND] Onset: 02-24-2022 Episodic Results Test Name Value Interpretation Reference Range Facil ity CBC AUTO DIFFon 06-30-2022 BASO # 0.1 103/ul Normal 0.0-0.1 [facility] Comment on above: Performed By: #### C BC #### [facility] [address] [place] [address] Dr. Thania Velez Basophils/100 WBC (Bld) 0.6 % Normal 0.2-2.0 [facility] Comment on above: Performed By: #### C BC #### [facility] [address] [address] [address] Thania Velez EO # 0.2 103/ul Normal 0.0-0.7 [facility] Comment on above: Performed By: #### C BC #### [facility] [address] [place] [address] Dr. Thania Velez Eosinophils/100 WBC (Bld) 1.7 % Normal 0.9-7.0 [facility] Comment on above: Performed By: #### C BC #### [facility] [address] [place] [address] Dr. Thania Velez Erythrocyte distribution width (RBC) [Ratio] 13.8 % Normal 11.0-15.0 [facility] Comment on above: Performed By: #### C BC #### [facility] [address] [place] [address] Dr. Thania Velez Hematocrit (Bld) [Volume fraction] 47.9 % Normal 36.0-48.0 [facility] Comment on above: Performed By: #### C BC #### [facility] [address] [place] [address] Dr. Thania Velez Hemoglobin (Bld) [Mass/Vol] 15.9 g/dL Normal 12.0-16.0 [facility] Comment on above: Performed By: #### C BC #### [facility] [address] [place] [address] Dr. Thania Velez IG # 0.03 10e3/ul Normal 0.00-0.03 [facility] Comment on above: Performed By: #### C BC #### [facility] [address] [place] [address] Dr. Thania Velez IG % 0.3 % Normal 0.0-0.5 [facility] Comment on above: Performed By: #### C BC #### [facility] [address] [place] [address] Dr. Thania Velez LYMPH # 2.2 103/ul Normal 1.2-3.8 [facility] Comment on above: Performed By: #### C BC #### [facility] [address] [place] [address] Dr. Thania Velez Lymphocytes/100 WBC (Bld) 23.9 % Normal 20.5-60.0 [facility] Comment on above: Performed By: #### C BC #### [facility] [address] [place] [address] Dr. Thania Velez MANUAL DIFF REQ NO Normal [facility] Comment on above: Performed By: #### C BC #### [facility] [address] [place] [address] Dr. Thania Velez MCH (RBC) [Entitic mass] 27.9 pg Normal 26.7-34.0 [facility] Comment on above: Performed By: #### C BC #### [facility] [address] [address] [address] Thania Velez MCHC (RBC) [Mass/Vol] 33.2 g/dL Normal 29.9-35.2 [facility] Comment on above: Performed By: #### C BC #### [facility] [address] [address] [address] Thania Velez MCV (RBC) [Entitic vol] 84.2 fL Normal 81.0-99.0 [facility] Comment on above: Performed By: #### C BC #### [facility] [address] [place] [address] Dr. Thania Velez MONO # 0.7 103/ul Normal 0.3-0.8 [facility] Comment on above: Performed By: #### C BC #### [facility] [address] [place] [address] Dr. Thania Velez Monocytes/100 WBC (Bld) 7.4 % Normal 1.7-12.0 [facility] Comment on above: Performed By: #### C BC #### [facility] [address] [place] [address] Dr. Thania Velez NEUT # 6.0 103/ul Normal 1.4-6.5 [facility] Comment on above: Performed By: #### C BC #### [facility] [address] [place] [address] Dr. Thania Velez Neutrophils/100 WBC (Bld) 66.1 % Normal 43.0-75.0 [facility] Comment on above: Performed By: #### C BC #### [facility] [address] [address] [address] Thanai Velez Platelet mean volume (Bld) [Entitic vol] 11.5 fL Normal 9.5-13.5 [facility] Comment on above: Performed By: #### C BC #### [facility] [address] [address] [address] Thania Velez PLT 172 103/ul Normal 150-450 [facility] Comment on above: Performed By: #### C BC #### [facility] [address] [address] [address] Thania Velez RBC 5.69 106/ul Critically high 4.20-5.40 [facility] Comment on above: Performed By: #### C BC #### [facility] [address] [address] [address] Thania Velez WBC 9.1 103/ul Normal 4.0-11.0 [facility] Comment on above: Performed By: #### C BC #### [facility] [address] [address] [address] Thania Velez GLYCOHEMOGLOBIN A1Con 2022 ADA RECOMMENDATION SEE BELOW Normal [facility] Comment on above: Result Comment: ADA RECOMMENDED LIMIT 4.0 - 6.0 ADA THERAPEUTIC TARGET < 7.0 ACTION SUGGESTED > 7.0 Performed By: #### A 1C #### [facility] [address] [address] [address] Thania Velez Glucose [Mass/Vol] 278 mg/dL Normal [facility] Comment on above: Performed By: #### A 1C #### [facility] [address] [place] [address] Dr. Thania Velez HbA1c (Bld) [Mass fraction] 11.3 % Critically high 4.5-6.2 [facility] Comment on above: Performed By: #### A 1C #### [facility] [address] [place] [address] Dr. Thania Velez IRONon 06-30-2022 Iron [Mass/Vol] 95.0 ug/dL Normal 50.0-170.0 [facility] Comment on above: Performed By: #### I CHRIS #### [facility] [address] [place] [address] Dr. Thania Velez LIPID PROFILEon 06-30-2022 CHOL-HDL RATIO NORM SEE BELOW Normal [facility] Comment on above: Result Comment: 3.3 - 4.4 LOW RISK 4.4 - 7.1 AVERAGE RISK 7.1 - 11.0 MODERATE RISK >11.0 HIGH RISK Performed By: #### C MP, LIPID #### [facility] [address] [address] [address] Thania Velez Cholesterol [Mass/Vol] 137 mg/dL Normal <=200 [facility] Comment on above: Performed By: #### C MP, LIPID #### [facility] [address] [address] [address] Thania Velez Cholesterol in HDL [Mass/Vol] 29 mg/dL Critically low 40-60 [facility] Comment on above: Performed By: #### C MP, LIPID #### [facility] [address] [place] [address] Dr. Thania Velez Cholesterol in LDL [Mass/Vol] 67.8 mg/dL Normal [facility] Comment on above: Performed By: #### C MP, LIPID #### [facility] [address] [place] [address] Dr. Thania Velez Cholesterol.total/Cho lesterol in HDL [Mass ratio] 4.7 {ratio} Normal [facility] Comment on above: Performed By: #### C MP, LIPID #### [facility] [address] [place] [address] Dr. Thania Velez HDL NORMAL > or = 60 mg/dl - LOW CARDIOVASCULAR RISK <40 mg/dl - HIGH CARDIOVASCULAR RISK Normal [facility] Comment on above: Performed By: #### C MP, LIPID #### [facility] [address] [address] [address] Thania Velez LDL CALC NORMAL SEE BELOW Normal [facility] Comment on above: Result Comment: <100 mg/dl OPTIMAL 100 - 129 mg/dl NEAR OR ABOVE OPTIMAL 130 - 159 mg/dl BORDERLINE HIGH 160 - 189 mg/dl HIGH >190 mg/dl VERY HIGH Performed By: #### C MP, LIPID #### [facility] [address] [place] [address] Dr. Thania Velez Triglyceride [Mass/Vol] 201 mg/dL Critically high <=150 [facility] Comment on above: Performed By: #### C MP, LIPID #### [facility] [address] [place] [address] Dr. Thania Velez VLDL CALC 40.2 mg/dL Normal [facility] Comment on above: Performed By: #### C MP, LIPID #### [facility] [address] [place] [address] Dr. Thania Velez MICROALBUMIN, RAND URon 06-12 mALB 25.4 mg/L Normal <=30.0 [facility] Comment on above: Performed By: #### M ALBR #### [facility] [address] [place] [address] Dr. Thania Velez PROF 14(COMP METB)on 023 Albumin [Mass/Vol] 3.7 g/dL Normal 3.4-5.0 [facility] Comment on above: Performed By: #### C MP, LIPID #### [facility] [address] [place] [address] Dr. Thania Velez Albumin/Globulin [Mass ratio] 0.9 {ratio} Normal [facility] Comment on above: Performed By: #### C MP, LIPID #### [facility] [address] [place] [address] Dr. Thania Velez ALP [Catalytic activity/Vol] 91 U/L Normal 46-116 [facility] Comment on above: Performed By: #### C MP, LIPID #### [facility] [address] [place] [address] Dr. Thania Velez ALT [Catalytic activity/Vol] 32 U/L Normal 14-59 [facility] Comment on above: Performed By: #### C MP, LIPID #### [facility] [address] [place] [address] Dr. Thania Velez Anion gap [Moles/Vol] 11.5 mmol/L Normal [facility] Comment on above: Performed By: #### C MP, LIPID #### [facility] [address] [place] [address] Dr. Thania Velez AST [Catalytic activity/Vol] 23 U/L Normal 15-37 [facility] Comment on above: Performed By: #### C MP, LIPID #### [facility] [address] [address] [address] Thania Velez Bilirubin [Mass/Vol] 0.6 mg/dL Normal 0.2-1.0 [facility] Comment on above: Performed By: #### C MP, LIPID #### [facility] [address] [place] [address] Dr. Thania Velez Calcium [Mass/Vol] 9.4 mg/dL Normal 8.5-10.1 [facility] Comment on above: Performed By: #### C MP, LIPID #### [facility] [address] [place] [address] Dr. Thania Velez Chloride [Moles/Vol] 98 mmol/L Normal 98-107 [facility] Comment on above: Performed By: #### C MP, LIPID #### [facility] [address] [place] [address] Dr. Thania Velez CO2 [Moles/Vol] 30.9 mmol/L Normal 21.0-32.0 [facility] Comment on above: Performed By: #### C MP, LIPID #### [facility] [address] [place] [address] Dr. Thania Velez Creatinine [Mass/Vol] 0.83 mg/dL Normal 0.55-1.02 [facility] Comment on above: Performed By: #### C MP, LIPID #### [facility] [address] [place] [address] Dr. Thania Velez EGFR-AF SPANISH >60 Normal >=60 [facility] Comment on above: Performed By: #### C MP, LIPID #### [facility] [address] [place] [address] Dr. Thania Velez EGFR-NON AF SPANISH >60 Normal >=60 [facility] Comment on above: Performed By: #### C MP, LIPID #### [facility] [address] [place] [address] Dr. Thania Velez Globulin (S) [Mass/Vol] 4.0 g/dL Normal [facility] Comment on above: Performed By: #### C MP, LIPID #### [facility] [address] [address] [address] Thania Velez Glucose [Mass/Vol] 226 mg/dL Critically high 74-106 [facility] Comment on above: Performed By: #### C MP, LIPID #### [facility] [address] [address] [address] Thania Velez Potassium [Moles/Vol] 4.4 mmol/L Normal 3.5-5.1 [facility] Comment on above: Performed By: #### C MP, LIPID #### [facility] [address] [place] [address] Dr. Thania Velez Protein [Mass/Vol] 7.7 g/dL Normal 6.4-8.2 [facility] Comment on above: Performed By: #### C MP, LIPID #### [facility] [address] [place] [address] Dr. Thania Velez Sodium [Moles/Vol] 136 mmol/L Normal 136-145 [facility] Comment on above: Performed By: #### C MP, LIPID #### [facility] [address] [place] [address] Dr. Thania Velez Urea nitrogen [Mass/Vol] 16.0 mg/dL Normal 7.0-18.0 [facility] [facility] Comment on above: Performed By: #### C MP, LIPID #### [facility] [address] [place] [address] Dr. Thania Velez Urea nitrogen/Creatinine [Mass ratio] 19.3 mg/mg Normal [facility] Comment on above: Performed By: #### C MP, LIPID #### [facility] [address] [place] [address] Dr. Thania Velez UA RANDOM W/MICROSCOPICon BACTERIA NONE SEEN Normal NONE SEEN [facility] Comment on above: Performed By: #### U AMIC #### [facility] [address] [place] [address] Dr. Thania Velez Bilirubin Ql (U) Negative Normal NEGATIVE [facility] Comment on above: Performed By: #### U AMIC #### [facility] [address] [address] [address] Thania Velez CAST NONE SEEN Normal NONE SEEN [facility] Comment on above: Performed By: #### U AMIC #### [facility] [address] [address] [address] Thania Velez Clarity (U) CLEAR Normal CLEAR [facility] Comment on above: Performed By: #### U AMIC #### [facility] [address] [address] [address] Thania Velez Color (U) YELLOW Normal YELLOW [facility] Comment on above: Performed By: #### U AMIC #### [facility] [address] [address] [address] Thania Velez Crystals LM Nom (Urine sed) NONE SEEN Normal NONE SEEN [facility] Comment on above: Performed By: #### U AMIC #### [facility] [address] [place] [address] Dr. Thania Velez Epithelial cells LM Ql (Urine sed) RARE Normal NONE SEEN /RARE [facility] Comment on above: Performed By: #### U AMIC #### [facility] [address] [address] [address] Thania Velez Glucose Ql (U) Negative Normal NEGATIVE [facility] Comment on above: Performed By: #### U AMIC #### [facility] [address] [place] [address] Dr. Thania Velez Hemoglobin Ql (U) Negative Normal NEGATIVE [facility] Comment on above: Performed By: #### U AMIC #### [facility] [address] [place] [address] Dr. Thania Velez Ketones Ql (U) Negative Normal NEGATIVE [facility] Comment on above: Performed By: #### U AMIC #### [facility] [address] [address] [address] Thania Velez LEUKOCYTES Negative Normal NEGATIVE [facility] Comment on above: Performed By: #### U AMIC #### [facility] [address] [address] [address] Thania Velez MUCOUS NONE SEEN Normal NONE SEEN [facility] Comment on above: Performed By: #### U AMIC #### [facility] [address] [address] [address] Thania Velez Nitrite Ql (U) Negative Normal NEGATIVE [facility] Comment on above: Performed By: #### U AMIC #### [facility] [address] [place] [address] Dr. Thania Velez pH (U) 6.5 [pH] Normal 5-9 [facility] Comment on above: Performed By: #### U AMIC #### [facility] [address] [place] [address] Dr. Thania Velez RBC 0-2 Normal 0-2 [facility] Comment on above: Performed By: #### U AMIC #### [facility] [address] [place] [address] Dr. Thania Velez SPEC GRAVITY 1.025 Normal 1.005-<=1.025 [facility] Comment on above: Performed By: #### U AMIC #### [facility] [address] [place] [address] Dr. Thania Velez UA PROTEIN 100 mg/dl Abnormal NEGATIVE/ TRACE [facility] Comment on above: Performed By: #### U AMIC #### [facility] [address] [place] [address] Dr. Thania Velez Urobilinogen Qn (U) 0.2 {Shelby'U}/dL Normal 0.2 - 1. 0 [facility] Comment on above: Performed By: #### U AMIC #### [facility] [address] [place] [address] Dr. Thania Velez WBC NONE SEEN Normal NONE SEEN [facility] Comment on above: Performed By: #### U AMIC #### [facility] [address] [place] [address] Dr. Thania Velez CULTURE WOUNDon 01-24-2022 CULTURE WOUND Isolate 1 Staphylococcus aureus Heavy growth of Isolate 2 Streptococcus agalactiae Heavy growth of ORGANISM 1 Staphylococcus aureus ANTIBIOTIC M.I.C RX STATUS Beta-Lactamase Pos POS F Cefoxitin Screen Neg NEG F Benzylpenicillin >=0.5 R F Gentamicin <=0.5 S F Ciprofloxacin <=0.5 S F Levofloxacin <=0.12 S F Moxifloxacin <=0.25 S F Inducible Clindamycin Resistance Neg NEG F Erythromycin >=8 R F Clindamycin <=0.25 S F Quinupristin/Dalfopr istin <=0.25 S F Linezolid 2 S F Vancomycin <=0.5 S F Tetracycline <=1 S F Rifampicin <=0.5 S F Trimethoprim/Sulfame thoxazole <=10 S F Oxacillin 0.5 S F ORGANISM 2 Streptococcus agalactiae ANTIBIOTIC M.I.C RX STATUS Benzylpenicillin <=0.06 S F Ampicillin <=0.25 S F Cefotaxime <=0.12 S F Ceftriaxone <=0.12 S F Levofloxacin <=0.25 S F Inducible Clindamycin Resistance Neg NEG F Erythromycin >=8 R F Clindamycin >=1 R F Linezolid <=2 S F Vancomycin 0.25 S F Tetracycline >=16 R F Normal [facility] Comment on above: Performed By: #### W OUNDCX #### [facility] [address] [place] [address] Dr. Thania Velez Lipid Profileon 09-29-2020 Cholesterol [Mass/Vol] 147 mg/dL Normal <200 [facility] Comment on above: Result Comment: Cholesterol Guidelines: <200 Desirable 200-240 Borderline >240 Undesirable Performed By: #### L IPR #### [facility] [address] [place] [id number] Slate Trimmer: Ky Fraser MD Cholesterol in HDL [Mass/Vol] 30 mg/dL Low >40 [facility] Comment on above: Result Comment: HDL Guidelines: <40 Undesirable 40-59 Borderline >59 Desirable Performed By: #### L IPR #### [facility] [address] [place] [address] Slate Trimmer: Ky Fraser MD Cholesterol in LDL [Mass/Vol] 74 mg/dL Normal 0-130 [facility] Comment on above: Result Comment: LDL Guidelines: <100 Desirable 100-129 Near to/above Desirable 130-159 Borderline >159 Undesirable Direct (measured) LDL and calculated LDL are not interchangeable tests. Performed By: #### L IPR #### [facility] [employer] [facility] [place] [address] Slate Trimmer: Ky Fraser MD Cholesterol.total/Cho lesterol in HDL [Mass ratio] 4.9 {ratio} Normal <5 [facility] Comment on above: Performed By: #### L IPR #### [facility] [employer] [facility] [place] [address] Slate Trimmer: Ky Fraser MD Triglyceride [Mass/Vol] 217 mg/dL High <150 [facility] Comment on above: Result Comment: Triglyceride Guidelines: <150 Desirable 150-199 Borderline 200-499 High >499 Very high Based on AHA Guidelines for fasting triglyceride, February 2012. Performed By: #### L IPR #### [facility] [employer] [address] [place] [address] Slate Trimmer: Ky Fraser MD Basic Metabolic PanelOrdered By: Anika Stone on 09-28-2020 Anion gap [Moles/Vol] 10 mmol/L 9 - 17 mmol/L [employer] Phone: Calcium [Mass/Vol] 10.6 mg/dL High 8.6 - 10. 4 mg/dL [employer] Phone: Chloride [Moles/Vol] 99 mmol/L 98 - 107 mmol/L [employer] Phone: CO2 [Moles/Vol] 30 mmol/L 20 - 31 mmol/L [employer] Phone: Creatinine [Mass/Vol] 0.93 mg/dL High 0.50 - 0.90 mg/dL [employer] Phone: GFR >60 >60 mL/min [employer] Phone: GFR Non- >60 >60 mL/min [employer] Phone: Glucose [Mass/Vol] 175 mg/dL High 70 - 99 mg/dL [facility] [employer] Phone: Interpretation and review of laboratory results Abnormal [email or web address] Phone: Potassium [Moles/Vol] 4.3 mmol/L 3.7 - 5.3 mmol/L [email or web address] Phone: Sodium [Moles/Vol] 139 mmol/L 135 - 144 mmol/L [email or web address] Phone: Urea nitrogen (BldV) [Mass/Vol] 22 mg/dL 8 - 23 mg/dL [facility] Phone: Urea nitrogen/Creatinine (Bld) [Mass ratio] 24 High [facility] [employer] Phone: [email or web address] Phone: Basic Metabolic Profon 09-28 Calcium [Mass/Vol] 10.6 mg/dL High 8.6-10.4 [facility] Comment on above: Performed By: #### B MP, BNP, CBC #### Lab [address] [place] [address] Slate Trimmer: Lazaro Ramesh MD (cont.) [facility] Comment on above: Result Comment: Aver age GFR for 60-69 years old: 85 mL/min/1.73sq m Chronic Kidney Disease: <60 mL/min/1.73sq m Kidney failure: <15 mL/min/1.73sq m eGFR calculated using average adult body mass. Additional eGFR calculator available at: http://www.[employer].fanatix/multiple_crcl_2012.htm Performed By: #### B MP, BNP, CBC #### Lab [address] [place] [address] Slate Trimmer: Lazaro Ramesh MD Anion gap [Moles/Vol] 10 mmol/L Normal 9-17 [facility] Comment on above: Performed By: #### B MP, BNP, CBC #### [facility] [address] [place], [place] [id number] Slate Trimmer: Lazaro Ramesh MD BUN/CRE Ratio 24 High 9-20 [facility] Comment on above: Performed By: #### B MP, BNP, CBC #### [facility] [address] [place], [place] [id number] Slate Trimmer: Lazaro Ramesh MD Chloride [Moles/Vol] 99 mmol/L Normal 98-107 [facility] Comment on above: Performed By: #### B MP, BNP, CBC #### [facility] [address] [place], [place] [id number] Slate Trimmer: Lazaro Ramesh MD CO2 [Moles/Vol] 30 mmol/L Normal 20-31 [facility] Comment on above: Performed By: #### B MP, BNP, CBC #### [facility] [address] [place], [place] [id number] Slate Trimmer: Lazaro Ramesh MD Creatinine [Mass/Vol] 0.93 mg/dL High 0.50-0.90 [facility] Comment on above: Performed By: #### B MP, BNP, CBC #### [facility] [address] [place], [place] [id number] Slate Trimmer: Lazaro Ramesh MD GFR, Amer >60 Normal >60 [facility] Comment on above: Performed By: #### B MP, BNP, CBC #### [facility] [address] [place], [place] [id number] Slate Trimmer: Lazaro Ramesh MD GFR,non Amer >60 Normal >60 [facility] Comment on above: Performed By: #### B MP, BNP, CBC #### [facility] [address] [place], [place] [id number] Slate Trimmer: Lazaro Ramseh MD Glucose [Mass/Vol] 175 mg/dL High 70-99 [facility] Comment on above: Performed By: #### B MP, BNP, CBC #### Lab [address] [place] [address] Dr[address] [place], [place] [id number] Slate Trimmer: Lzaaro Ramesh MD Potassium [Moles/Vol] 4.3 mmol/L Normal 3.7-5.3 [facility] Comment on above: Performed By: #### B MP, BNP, CBC #### Lab [address] [place] [address] Dr[place], [place] [id number] Slate Trimmer: Lazaro Ramesh MD Sodium [Moles/Vol] 139 mmol/L Normal 135-144 [facility] Comment on above: Performed By: #### B MP, BNP, CBC #### [address] [place], [place] [id number] Slate Trimmer: Lazaro Ramesh MD Staging: Normal [facility] Comment on above: Result Comment: Stag e 1: Some kidney damage normal GFR Stage 2: Mild kidney damage GFR 60-89 Stage 3: Moderate kidney damage GFR 30-59 Stage 4: Severe kidney damage GFR 15-29 Stage 5: Severe kidney damage GFR <15 ESRD - chronic treatment by dialysis or transplant Performed By: #### B MP, BNP, CBC #### [address] [place], [place] [id number] Slate Trimmer: Lazaro Ramesh MD Urea nitrogen [Mass/Vol] 22 mg/dL Normal 8-23 [facility] Comment on above: Performed By: #### B MP, BNP, CBC #### Lab [address] [place] [address] Dr[place], [place] [id number] Slate Trimmer: Lazaro Ramesh MD Brain Natri. Peptideon 09-28 BNP Interpretation Pro-BNP Reference Range: Normal [facility] Comment on above: Result Comment: Rule Out: <300 Sanchez Zone: Age <50 300-450 Age 50-75 300-900 Age >75 300-1800 Usually represents mild to moderate HF but other cardiopulmonary causes cannot be ruled out. Rule In: Age <50 >450 Age 50-75 >900 Age >75 >1800 Performed By: #### B MP, BNP, CBC #### Lab [address] [place] [address] Slate Trimmer: Lazaro Ramesh MD Natriuretic peptide B (Bld) [Mass/Vol] 817 pg/mL High <300 [facility] Comment on above: Result Comment: Pro- BNP results cannot be compared to BNP results. Performed By: #### B MP, BNP, CBC #### Lab [address] [place] [address] Slate Trimmer: Lazaro Ramesh MD Brain Natriuretic PeptideOrd ered By: Anika Stone on 09-28-2020 BNP Interpretation Pro-BNP Reference Range: [facility] Phone: Comment on above: Rule Out: <300 Sanchez Zone: Age <50 300-450 Age 50-75 300-900 Age >75 300-1800 Usually represents mild to moderate HF but other cardiopulmonary causes cannot be ruled out. Rule In: Age <50 >450 Age 50-75 >900 Age >75 >1800 Interpretation and review of laboratory results Abnormal [employer] [facility] Phone: Natriuretic peptide B (Bld) [Mass/Vol] 817 pg/mL High <300 [facility] [facility] Phone: Comment on above: Pro-BNP results loyd ot be compared to BNP results. [email or web address] Phone: CBCon 09-28-2020 Erythrocyte distribution width (RBC) [Ratio] 15.8 % High 11.8-14.4 [facility] Comment on above: Performed By: #### B MP, BNP, CBC #### Lab [address] [place] [address] Slate Trimmer: Lazaro Ramesh MD Hematocrit (Bld) [Volume fraction] 47.2 % High 36.3-47.1 [facility] Comment on above: Performed By: #### B MP, BNP, CBC #### Lab [address] [place] [address] Slate Trimmer: Lazaro Ramesh MD Hemoglobin (Bld) [Mass/Vol] 15.0 g/dL Normal 11.9-15.1 [facility] Comment on above: Performed By: #### B MP, BNP, CBC #### [address] [place], [place] [id number] Slate Trimmer: Lazaro Ramesh MD MCH (RBC) [Entitic mass] 27.5 pg Normal 25.2-33.5 [facility] Comment on above: Performed By: #### B MP, BNP, CBC #### [address] [place] [address] Slate Trimmer: Lazaro Ramesh MD MCHC (RBC) [Mass/Vol] 31.8 g/dL Normal 28.4-34.8 [facility] Comment on above: Performed By: #### B MP, BNP, CBC #### [address] [place] [address] Slate Trimmer: Lazaro Ramesh MD MCV (RBC) [Entitic vol] 86.6 fL Normal 82.6-102.9 [facility] Comment on above: Performed By: #### B MP, BNP, CBC #### [address] [place] [address] Slate Trimmer: Lazaro Ramesh MD NRBC Automated 0.0 per 100 WBC Normal 0.0 [facility] Comment on above: Performed By: #### B MP, BNP, CBC #### [address] [place] [address] Slate Trimmer: Lazaro Ramesh MD Platelet mean volume (Bld) [Entitic vol] 11.2 fL Normal 8.1-13.5 [facility] Comment on above: Performed By: #### B MP, BNP, CBC #### [address] [place] [address] Slate Trimmer: Lazaro Ramesh MD Platelets (Bld) [#/Vol] 158 10*3/uL Normal 138-453 [facility] Comment on above: Performed By: #### B MP, BNP, CBC #### Lab [address] [place] [address] Slate Trimmer: Lazaro Ramesh MD RBC (Bld) [#/Vol] 5.45 10*6/uL High 3.95-5.11 [facility] Comment on above: Performed By: #### B MP, BNP, CBC #### Lab [address] [place] [address] Slate Trimmer: Lazaro Ramesh MD WBC (Bld) [#/Vol] 8.2 10*3/uL Normal 3.5-11.3 [facility] Comment on above: Performed By: #### B MP, BNP, CBC #### Lab [address] [place] [address] Slate Trimmer: Lazaro Ramesh MD CBCOrdered By: Anika Stone on 09-28-2020 Hematocrit (Bld) [Volume fraction] 47.2 % High 36.3 - 47.1 % [employer] Phone: Hemoglobin.gastrointe stinal spec 1 Ql (Stl) 15.0 g/dL 11.9 - 15.1 g/dL [employer] Phone: Interpretation and review of laboratory results Abnormal [employer] Phone: MCH (RBC) [Entitic mass] 27.5 pg 25.2 - 33.5 pg [employer] Phone: MCHC (RBC) [Mass/Vol] 31.8 g/dL 28.4 - 34.8 g/dL [employer] Phone: MCV (RBC) [Entitic vol] 86.6 fL 82.6 - 102.9 fL [employer] Phone: NRBC Automated 0.0 0.0 per 100 WBC [employer] Phone: Platelet distribution width (Bld) [Ratio] 15.8 % High 11.8 - 14.4 % [employer] Phone: Platelet mean volume (Bld) [Entitic vol] 11.2 fL 8.1 - 13.5 fL [employer] Phone: Platelets (Bld) [#/Vol] 158 10*3/uL [employer] Phone: RBC (Bld) [#/Vol] 5.45 10*6/uL High 3.95 - 5.1 1 m/uL [employer] Phone: WBC (Bld) [#/Vol] 8.2 10*3/uL [employer] Phone: [employer] Phone: Echo 2D w doppler w color co mpleteOrdered By: Anika Stone on 09-28-2020 [facility] Transthoracic Echocardiography Report (TTE) Patient Name SAMIR Date of Study 09/28/2020 SAMREEN A Date of 1955 Gender Female Age 64 year(s) Race Room Number Height: 66 inch, 167.64 cm Corporate ID [id number] Weight: 236 pounds, 107 kg # Patient Acct [id number] BSA: 2.15 m^2 BMI: 38.09 # kg/m^2 MR # [id number] Racking Technician ethology Interpreting Physician Anika Stone Fellow Referring Nurse Practitioner Interpreting Referring Physician Anika Stone Fellow Type of Study TTE procedure:2D Echocardiogram, M-Mode, Doppler, Color Doppler. Procedure Date Date: 09/28/2020 Start: 02:49 PM Study Location: [facility] Indications:Dyspnea/ SOB. History / Tech. Comments: Dx: dyspnea Hx: chronic diastolic CHF, S/P TAVR, CAD, angioplasty with stent, paroxysmal atrial fibrillation Patient Status: Outpatient Height: 66 inches Weight: 236 pounds BSA: 2.15 m^2 BMI: 38.09 kg/m^2 BP: 148/70 mmHg Allergies - Codeine. - Codeine. - *Unlisted:(benadryl) . CONCLUSIONS Summary Global left ventricular systolic function appears to be at the lower limits of normal with an estimated ejection fraction of 50-55%. Mildly increased left ventricular wall thickness with a normal left ventricular cavity size. The left atrium is mildly dilated (29-33) with a left atrial volume index of 33 ml/m2. S/P TAVR with a mean gradient of 8 mmHg. No evidence of perivalvular regurgitation. Calcification of the posterior mitral valve leaflet with mild mitral stenosis, mean gradient is 4.5 mmHg. Evidence of moderate diastolic dysfunction is seen. Signature FINDINGS Left Atrium The left atrium is mildly dilated (29-33) with a left atrial volume index of 33 ml/m2. Left Ventricle Global left ventricular systolic function appears to be at the lower limits of normal with an estimated ejection fraction of 50-55%. Mildly increased left ventricular wall thickness with a normal left ventricular cavity size. Right Atrium Right atrium is normal in size. What appears to be a pacing lead seen in the right atrium and right ventricle. Right Ventricle Normal right ventricular size and function. Mitral Valve Calcification of the posterior mitral valve leaflet with mild mitral stenosis, mean gradient is 4.5 mmHg. Aortic Valve S/P TAVR with a mean gradient of 8 mmHg. No evidence of perivalvular regurgitation. Tricuspid Valve Normal tricuspid valve structure and function. Pulmonic Valve The pulmonic valve is normal in structure. Miscellaneous Evidence of moderate diastolic dysfunction is seen. Normal aortic root dimension. M-mode / 2D Measurements & Calculations: LVIDd:4.9 cm(3.7 - 5.6 cm) Diastolic Volume:112.8 ml LVIDs:3.28 cm(2.2 - 4.0 cm) Systolic Volume:54.1 ml IVSd:1.3 cm(0.6 - 1.1 cm) Aortic Root:2.79 cm(2.0 - 3.7 cm) LVPWd:1.33 cm(0.6 - 1.1 cm) LA Dimension: 4.73 cm(1.9 - 4.0 cm) Fractional Shortenin.06 % LA volume/Index: 71.8 ml /33m^2 Calculated LVEF (%): 52.04 % AV Cusp Separation: 1.65 cm Mitral: Aortic Valve Area (P1/2-Time): 2.03 cm^2 Peak Velocity: 1.87 m/s Peak E-Wave: 1.06 m/s Mean Velocity: 0.92 m/s Peak A-Wave: 1.29 m/s Peak Gradient: 13.99 mmHg E/A Ratio: 0.82 Mean Gradient: 8.66 mmHg Peak Gradient: 4.46 mmHg Acceleration Time: 99.45 msec P1/2t: 108.42 msec AV VTI: 27.92 cm Diastology / Tissue Doppler Lateral Wall E' velocity:0.09 m/s Lateral Wall E/E':11.22 [employer] Phone: Cristofer, pn Incoming Cardio Results From Cpacs/Ge - 09/28/2020 4:46 PM EDT [facility] Transthoracic Echocardiography Report (TTE) Patient Name SAMIR Date of Study 09/28/2020 SAMREEN Orozco Date of 1955 Gender Female Age 64 year(s) Race Room Number Height: 66 inch, 167.64 cm Corporate ID [id number] Weight: 236 pounds, 107 kg # Patient Acct [id number] BSA: 2.15 m^2 BMI: 38.09 # kg/m^2 MR # [id number] Racking Technician MarquiseRadha Interpreting Physician Anika Stone Fellow Referring Nurse Practitioner Interpreting Referring Physician Anika Stone Fellow Type of Study TTE procedure:2D Echocardiogram, M-Mode, Doppler, Color Doppler. Procedure Date Date: 09/28/2020 Start: 02:49 PM Study Location: [facility] Indications:Dyspnea/ SOB. History / Tech. Comments: Dx: dyspnea Hx: chronic diastolic CHF, S/P TAVR, CAD, angioplasty with stent, paroxysmal atrial fibrillation Patient Status: Outpatient Height: 66 inches Weight: 236 pounds BSA: 2.15 m^2 BMI: 38.09 kg/m^2 BP: 148/70 mmHg Allergies - Codeine. - Codeine. - *Unlisted:(benadryl) . CONCLUSIONS Summary Global left ventricular systolic function appears to be at the lower limits of normal with an estimated ejection fraction of 50-55%. Mildly increased left ventricular wall thickness with a normal left ventricular cavity size. The left atrium is mildly dilated (29-33) with a left atrial volume index of 33 ml/m2. S/P TAVR with a mean gradient of 8 mmHg. No evidence of perivalvular regurgitation. Calcification of the posterior mitral valve leaflet with mild mitral stenosis, mean gradient is 4.5 mmHg. Evidence of moderate diastolic dysfunction is seen. Signature - - - - FINDINGS Left Atrium The left atrium is mildly dilated (29-33) with a left atrial volume index of 33 ml/m2. Left Ventricle Global left ventricular systolic function appears to be at the lower limits of normal with an estimated ejection fraction of 50-55%. Mildly increased left ventricular wall thickness with a normal left ventricular cavity size. Right Atrium Right atrium is normal in size. What appears to be a pacing lead seen in the right atrium and right ventricle. Right Ventricle Normal right ventricular size and function. Mitral Valve Calcification of the posterior mitral valve leaflet with mild mitral stenosis, mean gradient is 4.5 mmHg. Aortic Valve S/P TAVR with a mean gradient of 8 mmHg. No evidence of perivalvular regurgitation. Tricuspid Valve Normal tricuspid valve structure and function. Pulmonic Valve The pulmonic valve is normal in structure. Miscellaneous Evidence of moderate diastolic dysfunction is seen. Normal aortic root dimension. M-mode / 2D Measurements & Calculations: LVIDd:4.9 cm(3.7 - 5.6 cm) Diastolic Volume:112.8 ml LVIDs:3.28 cm(2.2 - 4.0 cm) Systolic Volume:54.1 ml IVSd:1.3 cm(0.6 - 1.1 cm) Aortic Root:2.79 cm(2.0 - 3.7 cm) LVPWd:1.33 cm(0.6 - 1.1 cm) LA Dimension: 4.73 cm(1.9 - 4.0 cm) Fractional Shortenin.06 % LA volume/Index: 71.8 ml /33m^2 Calculated LVEF (%): 52.04 % AV Cusp Separation: 1.65 cm Mitral: Aortic Valve Area (P1/2-Time): 2.03 cm^2 Peak Velocity: 1.87 m/s Peak E-Wave: 1.06 m/s Mean Velocity: 0.92 m/s Peak A-Wave: 1.29 m/s Peak Gradient: 13.99 mmHg E/A Ratio: 0.82 Mean Gradient: 8.66 mmHg Peak Gradient: 4.46 mmHg Acceleration Time: 99.45 msec P1/2t: 108.42 msec AV VTI: 27.92 cm Diastology / Tissue Doppler Lateral Wall E' velocity:0.09 m/s Lateral Wall E/E':11.22 [employer] Phone: [employer] Phone: Laboratory - Chemistry and C hemistry - challengeOrdered By: Ainka Stone on 09-28-2020 GFR/1.73 sq M.predicted MDRD (S/P/Bld) [Vol rate/Area] [employer] Phone: Comment on above: Average GFR for 60-6 9 years old: 85 mL/min/1.73sq m Chronic Kidney Disease: <60 mL/min/1.73sq m Kidney failure: <15 mL/min/1.73sq m eGFR calculated using average adult body mass. Additional eGFR calculator available at: http://www.[employer]multiple_crcl_2011.htm Stage 1: Some kidney damage normal GFR Stage 2: Mild kidney damage GFR 60-89 Stage 3: Moderate kidney damage GFR 30-59 Stage 4: Severe kidney damage GFR 15-29 Stage 5: Severe kidney damage GFR <15 ESRD - chronic treatment by dialysis or transplant Lipid PanelOrdered By: Anika ramirez on 09-28-2020 Cholesterol [Mass/Vol] 147 mg/dL <200 [employer] Phone: Comment on above: Cholesterol Guidelines: <200 Desirable 200-240 Borderline >240 Undesirable Cholesterol in HDL [Mass/Vol] 30 mg/dL Low >40 [employer] Phone: Comment on above: HDL Guidelines: <40 Undesirable 40-59 Borderline >59 Desirable Cholesterol in LDL [Mass/Vol] 74 mg/dL 0 - 130 mg/dL [employer] Phone: Comment on above: LDL Guidelines: <100 Desirable 100-129 Near to/above Desirable 130-159 Borderline >159 Undesirable Direct (measured) LDL and calculated LDL are not interchangeable tests. Cholesterol in VLDL [Mass/Vol] NOT REPORTED High 1 - 30 mg/dL [employer] Phone: Cholesterol.total/Cho lesterol in HDL [Mass ratio] 4.9 {ratio} <5 [employer] Phone: Interpretation and review of laboratory results Abnormal [employer] Phone: Triglyceride [Mass/Vol] 217 mg/dL High <150 [employer] Phone: Comment on above: Triglyceride Guidelines: <150 Desirable 150-199 Borderline 200-499 High >499 Very high Based on AHA Guidelines for fasting triglyceride, February 2012. [employer] Phone: Lipid Profileon 09-28-2020 Cholesterol,VLDL NOT REPORTED Normal -30 [facility] Comment on above: Performed By: #### L IPR #### [employer] [facility] [place] [address] Slate Trimmer: Ky Fraser MD Basic Metabolic Panelon 10-0 -2019 Anion gap [Moles/Vol] 11 mmol/L 9 - 17 mmol/L [place] Bun/Cre Ratio NOT REPORTED [facility] [place] Calcium [Mass/Vol] 9.2 mg/dL 8.6 - 10. 4 mg/dL [place] Chloride [Moles/Vol] 100 mmol/L 98 - 107 mmol/L [place] CO2 [Moles/Vol] 28 mmol/L 20 - 31 mmol/L [place] Creatinine [Mass/Vol] 0.76 mg/dL 0.5 - 0.9 mg/d L [place] GFR >60 >60 mL/min [place] GFR Non- >60 >60 mL/min [place] GFR/1.73 sq M predicted among non-blacks MDRD (S/P/Bld) [Vol rate/Area] NOT REPORTED [place] GFR/1.73 sq M predicted among non-blacks MDRD (S/P/Bld) [Vol rate/Area] [place] Comment on above: Average GFR for 60-6 9 years old: 85 mL/min/1.73sq m Chronic Kidney Disease: <60 mL/min/1.73sq m Kidney failure: <15 mL/min/1.73sq m eGFR calculated using average adult body mass. Additional eGFR calculator available at: http://www.[employer] ([employer])/multiple_crcl_2012.htm Glucose [Mass/Vol] 113 mg/dL High 70 - 99 mg/dL [place] Interpretation and review of laboratory results Abnormal [place] Potassium [Moles/Vol] 4.4 mmol/L 3.7 - 5.3 mmol/L [place] Sodium [Moles/Vol] 139 mmol/L 135 - 144 mmol/L [place] Urea nitrogen [Mass/Vol] 27 mg/dL High 8 - 23 mg/dL [place] Basic Metabolic Profon 02-16 (cont.) Normal [facility] Comment on above: Result Comment: Aver age GFR for 60-69 years old: 85 mL/min/1.73sq m Chronic Kidney Disease: <60 mL/min/1.73sq m Kidney failure: <15 mL/min/1.73sq m eGFR calculated using average adult body mass. Additional eGFR calculator available at: http://www.[employer].fanatix/multiple_crcl_2012.htm Performed By: #### B MP, ELIZABETH, MG, CDP, IOCAL #### [employer] [address] [place] [phone] Slate Trimmer: Ky Fraser MD Anion gap [Moles/Vol] 11 mmol/L Normal 9-17 [facility] Comment on above: Performed By: #### B MP, ELIZABETH, MG, CDP, IOCAL #### [facility] [employer] [address] [place] [phone] Slate Trimmer: Ky Fraser MD Calcium [Mass/Vol] 9.2 mg/dL Normal 8.6-10.4 [facility] Comment on above: Performed By: #### B MP, ELIZABETH, MG, CDP, IOCAL #### [facility] [address] [place] [address] Slate Trimmer: Ky Fraser MD Chloride [Moles/Vol] 100 mmol/L Normal 98-[address] [facility] Comment on above: Performed By: #### B MP, ELIZABETH, MG, CDP, IOCAL #### [facility] [address] [place] [address] Slate Trimmer: Ky Fraser MD CO2 [Moles/Vol] 28 mmol/L Normal 20-31 [facility] Comment on above: Performed By: #### B MP, ELIZABETH, MG, CDP, IOCAL #### [facility] [address] [place] [phone] Slate Trimmer: Ky Fraser MD Creatinine [Mass/Vol] 0.76 mg/dL Normal 0.50-0.90 [facility] Comment on above: Performed By: #### B MP, ELIZABETH, MG, CDP, IOCAL #### [facility] [address] [place] [address] Slate Trimmer: Ky Fraser MD GFR, Amer >60 Normal >60 [facility] Comment on above: Performed By: #### B MP, ELIZABETH, MG, CDP, IOCAL #### [facility] [address] [place] [address] Slate Trimmer: Ky Fraser MD GFR,non Amer >60 Normal >[address] [facility] Comment on above: Performed By: #### B MP, ELIZABETH, MG, CDP, IOCAL #### [facility] [address] [place] [address] Slate Trimmer: Ky Fraser MD Glucose [Mass/Vol] 113 mg/dL High 70-99 [facility] Comment on above: Performed By: #### B MP, ELIZABETH, MG, CDP, IOCAL #### [address] [address] Slate Trimmer: Ky Fraser MD Potassium [Moles/Vol] 4.4 mmol/L Normal 3.7-5.3 [facility] Comment on above: Performed By: #### B MP, ELIZABETH, MG, CDP, IOCAL #### [address] [address] Slate Trimmer: Ky Fraser MD Sodium [Moles/Vol] 139 mmol/L Normal 135-144 [facility] Comment on above: Performed By: #### B MP, ELIZABETH, MG, CDP, IOCAL #### [facility] [address] [place] [address] Slate Trimmer: Ky Fraser MD Urea nitrogen [Mass/Vol] 27 mg/dL High 8-23 [facility] Comment on above: Performed By: #### B MP, ELIZABETH, MG, CDP, IOCAL #### [facility] [address] [place] [address] Slate Trimmer: Ky Fraser MD BUN/CRE Ratio NOT REPORTED Normal 01-28 [facility] Comment on above: Performed By: #### B MP, ELIZABETH, MG, CDP, IOCAL #### [facility] [address] [place], [place] [phone] Slate Trimmer: Ky Fraser MD Staging: NOT REPORTED Normal [facility] Comment on above: Performed By: #### B MP, ELIZABETH, MG, CDP, IOCAL #### [facility] [address] [place], [place] [phone] Slate Trimmer: Ky Fraser MD CBC auto differentialon Basophils (Bld) [#/Vol] 0.00 10*3/uL [place] Basophils/100 WBC (Bld) 0 % 0 - 2 % [place] Differential Type NOT REPORTED [place] Eosinophils (Bld) [#/Vol] 0.21 10*3/uL [place] Eosinophils/100 WBC (Bld) 3 % 1 - 4 % [place] Erythrocyte distribution width (RBC) [Ratio] 16.7 % High 11.8 - 14.4 % [place] Hematocrit (Bld) [Volume fraction] 30.7 % Low 36.3 - 47.1 % [place] Hemoglobin (Bld) [Mass/Vol] 8.5 g/dL Low 11.9 - 15.1 g/dL [place] Immature granulocytes (Bld) [#/Vol] 1 % High 0 [place] Immature granulocytes (Bld) [#/Vol] 0.07 10*3/uL [place] Interpretation and review of laboratory results Abnormal [place] Lymphocytes (Bld) [#/Vol] 0.99 10*3/uL Low [place] Lymphocytes/100 WBC (Bld) 14 % Low 24 - 43 % [place] MCH (RBC) [Entitic mass] 24.1 pg Low 25.2 - 33.5 pg [place] MCHC (RBC) [Mass/Vol] 27.7 g/dL Low 28.4 - 34.8 g/dL [place] MCV (RBC) [Entitic vol] 87.2 fL 82.6 - 102.9 fL [place] Monocytes (Bld) [#/Vol] 0.85 10*3/uL [place] Monocytes/100 WBC (Bld) 12 % 3 - 12 % [place] Morphology Darryn (Bld) [Interp] ANISOCYTOSIS PRESENT [place] Platelet mean volume (Bld) [Entitic vol] 10.8 fL 8.1 - 13.5 fL [place] Platelets (Bld) [#/Vol] NOT REPORTED [place] Platelets (Bld) [#/Vol] 191 10*3/uL [place] RBC (Bld) [#/Vol] 3.52 10*6/uL Low 3.95 - 5.1 1 m/uL [place] RBC morphology finding Nom (Bld) NOT REPORTED [place] Segmented neutrophils/100 WBC (Bld) 70 % High 36 - 65 % [place] Segs Absolute 4.98 [place] WBC (Bld) [#/Vol] 7.1 10*3/uL [place] WBC (Bld) [#/Vol] 0.0 10*3/uL 0.0 per 100 WBC M [place] WBC Morphology NOT REPORTED [place], [place] CBC with Diffon 02-17-2020 Abs. Basophil 0.00 k/uL Normal 0.00-0.20 [facility] Comment on above: Performed By: #### B MP, ELIZABETH, MG, CDP, IOCAL #### [employer] [address] [place] [address] Slate Trimmer: Ky Fraser MD Abs.Imm.Granulocyte 0.07 k/uL Normal 0.00-0.30 [facility] Comment on above: Performed By: #### B MP, ELIZABETH, MG, CDP, IOCAL #### [place] [address] Slate Trimmer: Ky Fraser MD Abs.Neutrophil (Seg) 4.98 k/uL Normal 1.50-8.[address] [facility] Comment on above: Performed By: #### B MP, ELIZABETH, MG, CDP, IOCAL #### [place] [address] Slate Trimmer: Ky Fraser MD Basophils/100 WBC (Bld) 0 % Normal 0-2 [facility] Comment on above: Performed By: #### B MP, ELIZABETH, MG, CDP, IOCAL #### [place] [address] Slate Trimmer: Ky Fraser MD Eosinophils (Bld) [#/Vol] 0.21 10*3/uL Normal 0.00-0.44 [facility] Comment on above: Performed By: #### B MP, ELIZABETH, MG, CDP, IOCAL #### [place] [address] Slate Trimmer: Ky Fraser MD Eosinophils/100 WBC (Bld) 3 % Normal 1-4 [facility] Comment on above: Performed By: #### B MP, ELIZABETH, MG, CDP, IOCAL #### [place] [address] Slate Trimmer: Ky Fraser MD Immature granulocytes/100 WBC (Bld) 1 % High 0 [facility] Comment on above: Performed By: #### B MP, ELIZABETH, MG, CDP, IOCAL #### [place] [address] Slate Trimmer: Ky Fraser MD Lymphocytes (Bld) [#/Vol] 0.99 10*3/uL Low 1.10-3.70 [facility] Comment on above: Performed By: #### B MP, ELIZABETH, MG, CDP, IOCAL #### [address] [address] Slate Trimmer: Ky Fraser MD Lymphocytes/100 WBC (Bld) 14 % Low 24-43 [facility] Comment on above: Performed By: #### B MP, ELIZABETH, MG, CDP, IOCAL #### [address] [address] Slate Trimmer: Ky Fraser MD Monocytes (Bld) [#/Vol] 0.85 10*3/uL Normal 0.10-1.20 [facility] Comment on above: Performed By: #### B MP, ELIZABETH, MG, CDP, IOCAL #### [address] [address] Slate Trimmer: Ky Fraser MD Monocytes/100 WBC (Bld) 12 % Normal 3-12 [facility] Comment on above: Performed By: #### B MP, ELIZABETH, MG, CDP, IOCAL #### [place] [address] Slate Trimmer: Ky Fraser MD Morphology Darryn (Bld) [Interp] ANISOCYTOSIS PRESENT Normal [facility] Comment on above: Performed By: #### B MP, ELIZABETH, MG, CDP, IOCAL #### [address] [address] Slate Trimmer: Ky Fraser MD Neutrophil (Seg) 70 % High 36-65 [facility] Comment on above: Performed By: #### B MP, ELIZABETH, MG, CDP, IOCAL #### [facility] [employer] [address] [place] [address] Slate Trimmer: Ky Fraser MD Erythrocyte distribution width (RBC) [Ratio] 16.7 % High 11.8-14.4 [facility] Comment on above: Performed By: #### B MP, ELIZABETH, MG, CDP, IOCAL #### [facility] [employer] [address] [place] [phone] Slate Trimmer: Ky Fraser MD Hematocrit (Bld) [Volume fraction] 30.7 % Low 36.3-47.1 [facility] Comment on above: Performed By: #### B MP, ELIZABETH, MG, CDP, IOCAL #### [facility] [employer] [address] [place] [phone] Slate Trimmer: Ky Fraser MD Hemoglobin (Bld) [Mass/Vol] 8.5 g/dL Low 11.9-15.1 [facility] Comment on above: Performed By: #### B MP, ELIZABETH, MG, CDP, IOCAL #### [facility] [employer] [address] [place] [address] Slate Trimmer: Ky Fraser MD MCH (RBC) [Entitic mass] 24.1 pg Low 25.2-33.5 [facility] Comment on above: Performed By: #### B MP, ELIZABETH, MG, CDP, IOCAL #### [facility] [employer] [address] [place] [address] Slate Trimmer: Ky Fraser MD MCHC (RBC) [Mass/Vol] 27.7 g/dL Low 28.4-34.8 [facility] Comment on above: Performed By: #### B MP, ELIZABETH, MG, CDP, IOCAL #### [facility] [employer] [address] [place] [address] Slate Trimmer: Ky Fraser MD MCV (RBC) [Entitic vol] 87.2 fL Normal 82.6-102.9 [facility] Comment on above: Performed By: #### B MP, ELIZABETH, MG, CDP, IOCAL #### [facility] [employer] [address] [place] [address] Slate Trimmer: Ky Fraser MD NRBC Automated 0.0 per 100 WBC Normal 0.0 [facility] Comment on above: Performed By: #### B MP, ELIZABETH, MG, CDP, IOCAL #### [address] [address] Slate Trimmer: Ky Fraser MD Platelet mean volume (Bld) [Entitic vol] 10.8 fL Normal 8.1-13.5 [facility] Comment on above: Performed By: #### B MP, ELIZABETH, MG, CDP, IOCAL #### [address] [address] Slate Trimmer: Ky Fraser MD Platelets (Bld) [#/Vol] 191 10*3/uL Normal 138-453 [facility] Comment on above: Performed By: #### B MP, ELIZABETH, MG, CDP, IOCAL #### [address] [address] Slate Trimmer: Ky Fraser MD RBC (Bld) [#/Vol] 3.52 10*6/uL Low 3.95-5.11 [facility] Comment on above: Performed By: #### B MP, ELIZABETH, MG, CDP, IOCAL #### [address] [address] Slate Trimmer: Ky Fraser MD WBC (Bld) [#/Vol] 7.1 10*3/uL Normal 3.5-11.3 [facility] Comment on above: Performed By: #### B MP, ELIZABETH, MG, CDP, IOCAL #### [address] [address] Slate Trimmer: Ky Fraser MD Auto Diff Performed NOT REPORTED Normal [facility] Comment on above: Performed By: #### B MP, ELIZABETH, MG, CDP, IOCAL #### [address] [address] Slate Trimmer: Ky Fraser MD Platelet Estimate NOT REPORTED Normal [facility] Comment on above: Performed By: #### B MP, ELIZABETH, MG, CDP, IOCAL #### [facility] [address] [place] [phone] Slate Trimmer: Ky Fraser MD RBC morphology finding Nom (Bld) NOT REPORTED Normal [facility] Comment on above: Performed By: #### B MP, ELIZABETH, MG, CDP, IOCAL #### [facility] [address] [place] [address] Slate Trimmer: Ky Fraser MD WBC Morphology NOT REPORTED Normal [facility] Comment on above: Performed By: #### B MP, ELIZABETH, MG, CDP, IOCAL #### [facility] [employer] [address] [place] [address] [phone] Slate Trimmer: Ky Fraser MD Calcium, Ionicon 02-17-2020 Calcium [Moles/Vol] 1.22 mmol/L Normal 1.13-1.[address] [facility] Comment on above: Performed By: #### B MP, ELIZABETH, MG, CDP, IOCAL #### [facility] [address] [place] [address] Slate Trimmer: Ky Fraser MD Hematologyon 02-17-2020 Blood product type Nom (BPU) Leukocyte Reduced Red Cell [place] Ionized Calciumon 02-17-2020 Calcium [Mass/Vol] 1.22 mmol/L 1.13 - 1. 33 mmol/L [place] Magnesiumon 02-17-2020 Magnesium [Mass/Vol] 2.2 mg/dL Normal 1.6-2.[address] [facility] Comment on above: Performed By: #### B MP, ELIZABETH, MG, CDP, IOCAL #### [facility] [address] [place] [phone] Slate Trimmer: Ky Fraser MD Magnesium [Mass/Vol] 2.2 mg/dL 1.6 - 2.6 mg/dL [place] Otheron 02-17-2020 Crossmatch Result COMPATIBLE Amisha Arndt [place] Dispense Status REL FROM ALLOC [place] Transfusion Status OK TO TRANSFUSE M [place] Unit Divison 0 [place], [place] POC Glucose Fingerstickon Glucose [Mass/Vol] 120 mg/dL High 65 - 105 mg/dL [place], [place] Interpretation and review of laboratory results Abnormal [place] Glucose [Mass/Vol] 113 mg/dL High 65 - 105 mg/dL [place] Interpretation and review of laboratory results Abnormal [place] Phosphoruson 02-17-2020 Phosphate [Mass/Vol] 3.1 mg/dL 2.6 - 4.5 mg/dL [place] Phosphorus, Inorg.on 020 Phosphorus, Inorg. 3.1 mg/dL Normal 2.6-4.5 [facility] Comment on above: Performed By: #### B MP, ELIZABETH, MG, CDP, IOCAL #### [facility] [employer] [facility] [place] [address] Slate Trimmer: Ky Fraser MD TYPE AND SCREENon 02-17-2020 ABO/Rh Positive [place] Antibody ID The positive antibody screening test has been evaluated for specific antibody identification with a diagnostic antigen panel. The patient's sample is found to contain an antibody with no apparent specificity. Clinically significant alloantibodies to common red cell antigens are ruled out. [place], [place] Arm Band Number BE [id number] [place], [place] AMY IgG Negative [place] Expiration Date 02/18/2020,2359 [place], [place] Unit Number [id number] [place] Unit Number [id number] [place] XR CHEST PORTABLEon 02-17-20 20 XR CHEST PORTABLE EXAMINATION: ONE XRAY VIEW OF THE CHEST 02/17/2020 8:51 am COMPARISON: 02/15/2020 HISTORY: ORDERING SYSTEM PROVIDED HISTORY: wheezing, dyspnea TECHNOLOGIST PROVIDED HISTORY: wheezing, dyspnea Reason for Exam: wheezing, dyspnea FINDINGS: Interval removal of ET tube and NG tube with. Pacemaker remains in place. Cardiomegaly unchanged. Mild vascular congestion. No focal consolidation. No pleural effusion or pneumothorax. Bones grossly intact. IMPRESSION: 1. Interval removal of ET tube and NG tube. 2. Mild pulmonary vascular congestion. Stable or slightly more prominent. Interpreted by: Luis Abdi MD Signed by: Luis Abdi MD 02/17/20 Final result Normal [facility] 1. Interval removal of ET tube and NG tube. 2. Mild pulmonary vascular congestion. Stable or slightly more prominent. [place] Cristofer, Mhpn Incoming Radiant Results From [employer] - 02/17/2020 9:10 AM EDT EXAMINATION: ONE XRAY VIEW OF THE CHEST 02/17/2020 8:51 am COMPARISON: 02/15/2020 HISTORY: ORDERING SYSTEM PROVIDED HISTORY: wheezing, dyspnea TECHNOLOGIST PROVIDED HISTORY: wheezing, dyspnea Reason for Exam: wheezing, dyspnea FINDINGS: Interval removal of ET tube and NG tube with. Pacemaker remains in place. Cardiomegaly unchanged. Mild vascular congestion. No focal consolidation. No pleural effusion or pneumothorax. Bones grossly intact. IMPRESSION: 1. Interval removal of ET tube and NG tube. 2. Mild pulmonary vascular congestion. Stable or slightly more prominent. [place] EXAMINATION: ONE XRAY VIEW OF THE CHEST 02/17/2020 8:51 am COMPARISON: 02/15/2020 HISTORY: ORDERING SYSTEM PROVIDED HISTORY: wheezing, dyspnea TECHNOLOGIST PROVIDED HISTORY: wheezing, dyspnea Reason for Exam: wheezing, dyspnea FINDINGS: Interval removal of ET tube and NG tube with. Pacemaker remains in place. Cardiomegaly unchanged. Mild vascular congestion. No focal consolidation. No pleural effusion or pneumothorax. Bones grossly intact. [place] Basic Metabolic Panelon 10-0 Anion gap [Moles/Vol] 10 mmol/L 9 - 17 mmol/L [place] Bun/Cre Ratio NOT REPORTED [place], [place] Calcium [Mass/Vol] 9.0 mg/dL 8.6 - 10. 4 mg/dL [place] Chloride [Moles/Vol] 100 mmol/L 98 - 107 mmol/L [place] CO2 [Moles/Vol] 28 mmol/L 20 - 31 mmol/L [place] Creatinine [Mass/Vol] 1.18 mg/dL High 0.5 - 0.9 mg/d L [place] GFR 56 mL/min Low >60 [place] GFR Non- 46 mL/min Low >60 [place] GFR/1.73 sq M predicted among non-blacks MDRD (S/P/Bld) [Vol rate/Area] NOT REPORTED [place] GFR/1.73 sq M predicted among non-blacks MDRD (S/P/Bld) [Vol rate/Area] [place], [place] Comment on above: Average GFR for 60-6 9 years old: 85 mL/min/1.73sq m Chronic Kidney Disease: <60 mL/min/1.73sq m Kidney failure: <15 mL/min/1.73sq m eGFR calculated using average adult body mass. Additional eGFR calculator available at: http://www.[employer])/[place]_crcl_2011.htm Glucose [Mass/Vol] 121 mg/dL High 70 - 99 mg/dL [place] Interpretation and review of laboratory results Abnormal [place], [place] Potassium [Moles/Vol] 4.0 mmol/L 3.7 - 5.3 mmol/L [place] Sodium [Moles/Vol] 138 mmol/L 135 - 144 mmol/L [place] Urea nitrogen [Mass/Vol] 39 mg/dL High 8 - 23 mg/dL [place] Basic Metabolic Profon 02-15 (cont.) Normal [facility] Comment on above: Result Comment: Aver age GFR for 60-69 years old: 85 mL/min/1.73sq m Chronic Kidney Disease: <60 mL/min/1.73sq m Kidney failure: <15 mL/min/1.73sq m eGFR calculated using average adult body mass. Additional eGFR calculator available at: http://www.[employer])/multiple_crcl_2012.htm Performed By: #### T YS #### [address] [address] Slate Trimmer: Ky Fraser MD Anion gap [Moles/Vol] 10 mmol/L Normal 9-17 [facility] Comment on above: Performed By: #### T YS #### [address] [address] Slate Trimmer: Ky Fraser MD Calcium [Mass/Vol] 9.0 mg/dL Normal 8.6-10.4 [facility] Comment on above: Performed By: #### T YS #### [address] [address] Slate Trimmer: Ky Fraser MD Chloride [Moles/Vol] 100 mmol/L Normal 98-[address] [facility] Comment on above: Performed By: #### T YS #### [address] [address] Slate Trimmer: Ky Fraser MD CO2 [Moles/Vol] 28 mmol/L Normal 20-31 [facility] Comment on above: Performed By: #### T YS #### [address] [address] Slate Trimmer: Ky Fraser MD Creatinine [Mass/Vol] 1.18 mg/dL High 0.50-0.90 [facility] Comment on above: Performed By: #### T YS #### [address] [address] Slate Trimmer: Ky Fraser MD GFR, Amer 56 mL/min Low >60 [facility] Comment on above: Performed By: #### T YS #### [address] [address] Slate Trimmer: Ky Fraser MD GFR,non Amer 46 mL/min Low >[address] [facility] Comment on above: Performed By: #### T YS #### [facility] [employer] [address] [place] [address] Slate Trimmer: Ky Fraser MD Glucose [Mass/Vol] 121 mg/dL High 70-99 [facility] Comment on above: Performed By: #### T YS #### [address] [address] Slate Trimmer: Ky Fraser MD Potassium [Moles/Vol] 4.0 mmol/L Normal 3.7-5.3 [facility] Comment on above: Performed By: #### T YS #### [address] [address] Slate Trimmer: Ky Fraser MD Sodium [Moles/Vol] 138 mmol/L Normal 135-144 [facility] Comment on above: Performed By: #### T YS #### [address] [address] Slate Trimmer: Ky Fraser MD Urea nitrogen [Mass/Vol] 39 mg/dL High 8-23 [facility] Comment on above: Performed By: #### T YS #### [address] [address] Slate Trimmer: Ky Fraser MD BUN/CRE Ratio NOT REPORTED Normal 9-20 [facility] Comment on above: Performed By: #### T YS #### [facility] [employer] [address] [place] [address] Slate Trimmer: Ky rFaser MD Staging: NOT REPORTED Normal [facility] Comment on above: Performed By: #### T YS #### [address] [address] Slate Trimmer: Ky Fraser MD CBC auto differentialon 10-0 Basophils (Bld) [#/Vol] 10*3/uL [facility], [place] Basophils/100 WBC (Bld) 0 % 0 - 2 % [place] Differential Type NOT REPORTED [place] Eosinophils (Bld) [#/Vol] 10*3/uL [place] Eosinophils/100 WBC (Bld) 0 % Low 1 - 4 % [place] Erythrocyte distribution width (RBC) [Ratio] 17.0 % High 11.8 - 14.4 % [place] Hematocrit (Bld) [Volume fraction] 28.5 % Low 36.3 - 47.1 % [place] Hemoglobin (Bld) [Mass/Vol] 8.0 g/dL Low 11.9 - 15.1 g/dL [place] Immature granulocytes (Bld) [#/Vol] 0.11 10*3/uL [place] Immature granulocytes (Bld) [#/Vol] 1 % High 0 [place] Interpretation and review of laboratory results Abnormal [place] Lymphocytes (Bld) [#/Vol] 0.94 10*3/uL Low [place] Lymphocytes/100 WBC (Bld) 10 % Low 24 - 43 % [place] MCH (RBC) [Entitic mass] 25.1 pg Low 25.2 - 33.5 pg [place] MCHC (RBC) [Mass/Vol] 28.1 g/dL Low 28.4 - 34.8 g/dL [place] MCV (RBC) [Entitic vol] 89.3 fL 82.6 - 102.9 fL [place] Monocytes (Bld) [#/Vol] 1.05 10*3/uL [place] Monocytes/100 WBC (Bld) 11 % 3 - 12 % [place] Platelet mean volume (Bld) [Entitic vol] 11.0 fL 8.1 - 13.5 fL [place] Platelets (Bld) [#/Vol] 198 10*3/uL [place] Platelets (Bld) [#/Vol] NOT REPORTED [place] RBC (Bld) [#/Vol] 3.19 10*6/uL Low 3.95 - 5.1 1 m/uL [place] RBC morphology finding Nom (Bld) ANISOCYTOSIS PRESENT [facility] [place] Comment on above: HYPOCHROMIA PRESENT Segmented neutrophils/100 WBC (Bld) 78 % High 36 - 65 % [place], [place] Segs Absolute 7.69 [place], [place] WBC (Bld) [#/Vol] 9.8 10*3/uL [place] WBC (Bld) [#/Vol] 0.2 10*3/uL High 0.0 per 100 WBC [place], [place] WBC Morphology NOT REPORTED [place], [place] CBC with Diffon 02-16-2020 Abs. Basophil <0.03 Normal 0.00-0.20 [facility] Comment on above: Performed By: #### T YS #### [place] [address] Slate Trimmer: Ky Fraser MD Abs. Eosinophil <0.03 Normal 0.00-0.44 [facility] Comment on above: Performed By: #### T YS #### [facility] [employer] [address] [place] [phone] Slate Trimmer: Ky Fraser MD Abs.Imm.Granulocyte 0.11 k/uL Normal 0.00-0.30 [facility] Comment on above: Performed By: #### T YS #### [facility] [employer] [address] [place] [phone] Slate Trimmer: Ky Fraser MD Abs.Neutrophil (Seg) 7.69 k/uL Normal 1.50-8.[address] [facility] Comment on above: Performed By: #### T YS #### [facility] [employer] [address] [place] [phone] Slate Trimmer: Ky Fraser MD Basophils/100 WBC (Bld) 0 % Normal 0-2 [facility] Comment on above: Performed By: #### T YS #### [facility] [employer] [address] [place] [phone] Slate Trimmer: Ky Fraser MD Eosinophils/100 WBC (Bld) 0 % Low 1-4 [facility] Comment on above: Performed By: #### T YS #### [address] [address] Slate Trimmer: Ky Fraser MD Erythrocyte distribution width (RBC) [Ratio] 17.0 % High 11.8-14.4 [facility] Comment on above: Performed By: #### T YS #### [address] [address] Slate Trimmer: Ky Fraser MD Hematocrit (Bld) [Volume fraction] 28.5 % Low 36.3-47.1 [facility] Comment on above: Performed By: #### T YS #### [address] [address] Slate Trimmer: Ky Fraser MD Hemoglobin (Bld) [Mass/Vol] 8.0 g/dL Low 11.9-15.1 [facility] Comment on above: Performed By: #### T YS #### [address] [address] Slate Trimmer: Ky Fraser MD Immature granulocytes/100 WBC (Bld) 1 % High 0 [facility] Comment on above: Performed By: #### T YS #### [address] [address] Slate Trimmer: Ky Fraser MD Lymphocytes (Bld) [#/Vol] 0.94 10*3/uL Low 1.10-3.70 [facility] Comment on above: Performed By: #### T YS #### [address] [address] Slate Trimmer: Ky Fraser MD Lymphocytes/100 WBC (Bld) 10 % Low 24-43 [facility] Comment on above: Performed By: #### T YS #### [address] [address] Slate Trimmer: Ky Fraser MD MCH (RBC) [Entitic mass] 25.1 pg Low 25.2-33.5 [facility] Comment on above: Performed By: #### T YS #### [place] [address] Slate Trimmer: Ky Fraser MD MCHC (RBC) [Mass/Vol] 28.1 g/dL Low 28.4-34.8 [facility] Comment on above: Performed By: #### T YS #### [place] [address] Slate Trimmer: Ky Fraser MD MCV (RBC) [Entitic vol] 89.3 fL Normal 82.6-102.9 [facility] Comment on above: Performed By: #### T YS #### [address] [address] Slate Trimmer: Ky Fraser MD Monocytes (Bld) [#/Vol] 1.05 10*3/uL Normal 0.10-1.20 [facility] Comment on above: Performed By: #### T YS #### [place] [address] Slate Trimmer: Ky Fraser MD Monocytes/100 WBC (Bld) 11 % Normal 3-12 [facility] Comment on above: Performed By: #### T YS #### [address] [address] Slate Trimmer: Ky Fraser MD Neutrophil (Seg) 78 % High 36-65 [facility] Comment on above: Performed By: #### T YS #### [address] [place] [address] Slate Trimmer: Ky Fraser MD NRBC Automated 0.2 per 100 WBC High 0.0 [facility] Comment on above: Performed By: #### T YS #### [address] [address] Slate Trimmer: Ky Fraser MD Platelet mean volume (Bld) [Entitic vol] 11.0 fL Normal 8.1-13.5 [facility] Comment on above: Performed By: #### T YS #### [address] [address] Slate Trimmer: Ky Fraser MD Platelets (Bld) [#/Vol] 198 10*3/uL Normal 138-453 [facility] Comment on above: Performed By: #### T YS #### [address] [address] Slate Trimmer: Ky Fraser MD RBC (Bld) [#/Vol] 3.19 10*6/uL Low 3.95-5.11 [facility] Comment on above: Performed By: #### T YS #### [address] [address] Slate Trimmer: Ky Fraser MD RBC morphology finding Nom (Bld) ANISOCYTOSIS PRESENT Normal [facility] Comment on above: Result Comment: HYPO CHROMIA PRESENT Performed By: #### T YS #### [address] [address] Slate Trimmer: Ky Fraser MD WBC (Bld) [#/Vol] 9.8 10*3/uL Normal 3.5-11.3 [facility] Comment on above: Performed By: #### T YS #### [address] [address] Slate Trimmer: Ky Fraser MD Auto Diff Performed NOT REPORTED Normal [facility] Comment on above: Performed By: #### T YS #### [employer] [address] [place], [place] [phone] Slate Trimmer: Ky Fraser MD Platelet Estimate NOT REPORTED Normal [facility] Comment on above: Performed By: #### T YS #### [employer] [address] [place] [address] [phone] Slate Trimmer: Ky Fraser MD WBC Morphology NOT REPORTED Normal [facility] Comment on above: Performed By: #### T YS #### [facility] [address] [place] [address] [phone] Slate Trimmer: Ky Fraser MD Calcium, Ionicon 02-16-2020 Calcium [Moles/Vol] 1.18 mmol/L Normal 1.13-1.[address] [facility] Comment on above: Performed By: #### T YS #### [employer] [address] [place] [phone] Slate Trimmer: Ky Fraser MD EKG 12 Leadon 02-16-2020 Atrial Rate 79 BPM [facility] [place] P Ada 70 degrees [facility] [place] P-R Interval 184 ms [facility] [place] Q-T Interval 462 ms [facility] [place] QRS Duration 188 ms [facility] [place] QTc Calculation (Bazett) 529 ms [facility] [place] R Ada 81 degrees [facility] T Ada -93 degrees [facility] Ventricular Rate 79 BPM [facility] [place] Sinus rhythm with Premature atrial complexes Possible Left atrial enlargement Right bundle branch block Possible Inferior infarct (cited on or before 14-FEB-2020) Abnormal ECG When compared with ECG of 14-FEB-2020 02:36, Sinus rhythm has replaced Electronic atrial pacemaker QT has lengthened [facility] [place] Cristofer, Mhpn Incoming Ekg Results From [facility] - 02/16/2020 1:20 PM EDT Sinus rhythm with Premature atrial complexes Possible Left atrial enlargement Right bundle branch block Possible Inferior infarct (cited on or before 14-FEB-2020) Abnormal ECG When compared with ECG of 14-FEB-2020 02:36, Sinus rhythm has replaced Electronic atrial pacemaker QT has lengthened [place] Hgb/Hcton 02-16-2020 Hematocrit (Bld) [Volume fraction] 27.5 % Low 36.3-47.1 [facility] Comment on above: Performed By: #### T YS #### [employer] [address] [place], [place] [phone] Slate Trimmer: Ky Fraser MD Hemoglobin (Bld) [Mass/Vol] 7.8 g/dL Low 11.9-15.1 [facility] Comment on above: Performed By: #### T YS #### [employer] [address] [place], [place] [phone] Slate Trimmer: Ky Fraser MD Ionized Calciumon 02-16-2020 Calcium [Mass/Vol] 1.18 mmol/L 1.13 - 1. 33 mmol/L [place] Magnesiumon 02-16-2020 Magnesium [Mass/Vol] 2.3 mg/dL Normal 1.6-2.[address] [facility] Comment on above: Performed By: #### T YS #### [employer] [address] [place] [address] [phone] Slate Trimmer: Ky Fraser MD Magnesium [Mass/Vol] 2.3 mg/dL 1.6 - 2.6 mg/dL [place] POC Glucose Fingerstickon Glucose [Mass/Vol] 129 mg/dL High 65 - 105 mg/dL [place] Interpretation and review of laboratory results Abnormal [place] Glucose [Mass/Vol] 155 mg/dL High 65 - 105 mg/dL [place] Interpretation and review of laboratory results Abnormal [place] Glucose [Mass/Vol] 131 mg/dL High 65 - 105 mg/dL [place] Interpretation and review of laboratory results Abnormal [place] Glucose [Mass/Vol] 142 mg/dL High 65 - 105 mg/dL [place] Interpretation and review of laboratory results Abnormal [place] Glucose [Mass/Vol] 121 mg/dL High 65 - 105 mg/dL [place] Interpretation and review of laboratory results Abnormal [place] Glucose [Mass/Vol] 129 mg/dL High 65 - 105 mg/dL [place] Interpretation and review of laboratory results Abnormal [place] Phosphoruson 02-16-2020 Phosphate [Mass/Vol] 3.1 mg/dL 2.6 - 4.5 mg/dL [place] Phosphorus, Inorg.on 020 Phosphorus, Inorg. 3.1 mg/dL Normal 2.6-4.5 [facility] Comment on above: Performed By: #### T YS #### [facility] [employer] [address] [place] [address] [phone] Slate Trimmer: Ky Fraser MD APTTon 02-15-2020 aPTT Coag (Bld) [Time] 33.6 s High 20.5-30.5 [facility] Comment on above: Result Comment: IV Heparin Therapy Range: 48.6-77.8 Performed By: #### C BC, PTT #### [facility] [employer] [address] [place] [address] [phone] Slate Trimmer: Ky Fraser MD aPTT Coag (Bld) [Time] 33.6 s [place] Comment on above: IV Heparin Therapy Range: 48.6-77.8 Interpretation and review of laboratory results Abnormal [place] aPTT Coag (Bld) [Time] 35.5 s High 20.5-30.5 [facility] Comment on above: Result Comment: IV Heparin Therapy Range: 48.6-77.8 Performed By: #### R REEL REPAIRER #### [facility] [employer] [address] [place] [address] [phone] Slate Trimmer: Ky Fraser MD aPTT Coag (Bld) [Time] 35.5 s High [place] Comment on above: IV Heparin Therapy Range: 48.6-77.8 Interpretation and review of laboratory results Abnormal [place] Activated clotting timeon Activated Clotting Time 217 High [place] Interpretation and review of laboratory results Abnormal [place] Activated Clotting Time 251 High [place] Interpretation and review of laboratory results Abnormal [place] Anion Gap (Calc) POCon 02-14 Anion gap [Moles/Vol] 10 mmol/L 7 - 16 mmol/L [place] Arterial Blood Gas, POCon Lluvia Test NOT REPORTED [place], [place] aPTT Coag (Bld) [Time] NOT REPORTED [place] FIO2 40.0 [place] Mode NOT REPORTED [place], [place] Negative Base Excess, Art NOT REPORTED [place] O2 Device/Flow/% Adult Ventilator [place], [place] Oxygen saturation in Blood 91 % Low 94 - 98 % [place] POC HCO3 32.2 mmol/L High 21 - 28 mmol/L [place] POC pCO2 59.7 High [place] POC pCO2 Temp NOT REPORTED mm Hg [place] POC pH 7.340 Low [place] POC pH Temp NOT REPORTED [place] POC PO2 67.3 Low [place] POC pO2 Temp NOT REPORTED mm Hg [place], [place] Positive Base Excess, Art 5 High [place] Sample Site Arterial Line [place], [place] TCO2 (calc), Art 34 mmol/L High 22 - 29 mmol/L [place] Lluvia Test NOT REPORTED [place], [place] aPTT Coag (Bld) [Time] NOT REPORTED [place] FIO2 75.0 [place] Mode NOT REPORTED [place], [place] Negative Base Excess, Art NOT REPORTED [place] O2 Device/Flow/% Adult Ventilator [place], [place] Oxygen saturation in Blood 96 % 94 - 98 % [place] POC HCO3 33.3 mmol/L High 21 - 28 mmol/L [place] POC pCO2 60.7 High [place] POC pCO2 Temp NOT REPORTED mm Hg [place] POC pH 7.348 Low [place], [place] POC pH Temp NOT REPORTED [place] POC PO2 92.1 [place] POC pO2 Temp NOT REPORTED mm Hg [place] Positive Base Excess, Art 6 High [place] Sample Site Arterial Line [place] TCO2 (calc), Art 35 mmol/L High 22 - 29 mmol/L [place] Lluvia Test Positive [place] aPTT Coag (Bld) [Time] NOT REPORTED [place] FIO2 40.0 [place] Mode PRVC [place] Negative Base Excess, Art NOT REPORTED [place] O2 Device/Flow/% Adult Ventilator [place], [place] Oxygen saturation in Blood 96 % 94 - 98 % [place] POC HCO3 32.9 mmol/L High 21 - 28 mmol/L [place] POC pCO2 50.6 High [place] POC pCO2 Temp NOT REPORTED mm Hg [place] POC pH 7.422 [place] POC pH Temp NOT REPORTED [place] POC PO2 79.4 Low [place], [place] POC pO2 Temp NOT REPORTED mm Hg [place] Positive Base Excess, Art 8 High [place] Sample Site Left Radial Artery [place] TCO2 (calc), Art 35 mmol/L High 22 - 29 mmol/L [place] BLOOD BANK SPECIMENon 2019 Blood Bank Specimen NOT REPORTED [place], [place] Basic Metab w/rfx MGon 02-14 (cont.) Normal [facility] Comment on above: Result Comment: Aver age GFR for 60-69 years old: 85 mL/min/1.73sq m Chronic Kidney Disease: <60 mL/min/1.73sq m Kidney failure: <15 mL/min/1.73sq m eGFR calculated using average adult body mass. Additional eGFR calculator available at: http://www.[employer].fanatix/multiple_crcl_2012.htm Performed By: #### R REEL REPAIRER #### [address] [address] Slate Trimmer: Ky Fraser MD Anion gap [Moles/Vol] 11 mmol/L Normal 9-17 [facility] Comment on above: Performed By: #### R REEL REPAIRER #### [address] [address] Slate Trimmer: Ky Fraser MD Calcium [Mass/Vol] 9.3 mg/dL Normal 8.6-10.4 [facility] Comment on above: Performed By: #### R REEL REPAIRER #### [address] [address] Slate Trimmer: Ky Fraser MD Chloride [Moles/Vol] 99 mmol/L Normal 98-[address] [facility] Comment on above: Performed By: #### R REEL REPAIRER #### [address] [address] Slate Trimmer: Ky Fraser MD CO2 [Moles/Vol] 30 mmol/L Normal 20-31 [facility] Comment on above: Performed By: #### R REEL REPAIRER #### [address] [address] Slate Trimmer: Ky Fraser MD Creatinine [Mass/Vol] 1.54 mg/dL High 0.50-0.90 [facility] Comment on above: Performed By: #### R REEL REPAIRER #### [address] [address] Slate Trimmer: Ky Fraser MD GFR, Amer 41 mL/min Low >60 [facility] Comment on above: Performed By: #### R REEL REPAIRER #### [address] [address] Slate Trimmer: yK Fraser MD GFR,non Amer 34 mL/min Low >[address] [facility] Comment on above: Performed By: #### R REEL REPAIRER #### [address] [address] Slate Trimmer: Ky Fraser MD Glucose [Mass/Vol] 145 mg/dL High 70-99 [facility] Comment on above: Performed By: #### R REEL REPAIRER #### [address] [address] Slate Trimmer: Ky Fraser MD Potassium [Moles/Vol] 3.7 mmol/L Normal 3.7-5.3 [facility] Comment on above: Performed By: #### R REEL REPAIRER #### [address] [address] Slate Trimmer: Ky Fraser MD Sodium [Moles/Vol] 140 mmol/L Normal 135-144 [facility] Comment on above: Performed By: #### R REEL REPAIRER #### [address] [address] Slate Trimmer: Ky Fraser MD Urea nitrogen [Mass/Vol] 40 mg/dL High 8-23 [facility] Comment on above: Performed By: #### R REEL REPAIRER #### [address] [address] Slate Trimmer: Ky Fraser MD BUN/CRE Ratio NOT REPORTED Normal 9-20 [facility] Comment on above: Performed By: #### R REEL REPAIRER #### [address] [address] Slate Trimmer: Ky Fraser MD Staging: NOT REPORTED Normal [facility] Comment on above: Performed By: #### R REEL REPAIRER #### [facility] [employer] [address] [place] [address] Slate Trimmer: Ky Fraser MD Basic Metabolic Panelon 10-0 Anion gap [Moles/Vol] 14 mmol/L 9 - 17 mmol/L [place] Bun/Cre Ratio NOT REPORTED [place] Calcium [Mass/Vol] 9.7 mg/dL 8.6 - 10. 4 mg/dL [place] Chloride [Moles/Vol] 98 mmol/L 98 - 107 mmol/L [place] CO2 [Moles/Vol] 27 mmol/L 20 - 31 mmol/L [place] Creatinine [Mass/Vol] 1.61 mg/dL High 0.5 - 0.9 mg/d L [place] GFR 39 mL/min Low >60 [place] GFR Non- 32 mL/min Low >60 [place] GFR/1.73 sq M predicted among non-blacks MDRD (S/P/Bld) [Vol rate/Area] [place] Comment on above: Average GFR for 60-6 9 years old: 85 mL/min/1.73sq m Chronic Kidney Disease: <60 mL/min/1.73sq m Kidney failure: <15 mL/min/1.73sq m eGFR calculated using average adult body mass. Additional eGFR calculator available at: http://www.[employer].fanatix/multiple_crcl_2012.htm GFR/1.73 sq M predicted among non-blacks MDRD (S/P/Bld) [Vol rate/Area] NOT REPORTED [place] Glucose [Mass/Vol] 163 mg/dL High 70 - 99 mg/dL [place] Interpretation and review of laboratory results Abnormal [place] Potassium [Moles/Vol] 4.3 mmol/L 3.7 - 5.3 mmol/L [place] Sodium [Moles/Vol] 139 mmol/L 135 - 144 mmol/L [place] Urea nitrogen [Mass/Vol] 41 mg/dL High 8 - 23 mg/dL [place] Basic Metabolic Panel w/ Ref laney to MGon 02-15-2020 Anion gap [Moles/Vol] 11 mmol/L 9 - 17 mmol/L [place] Bun/Cre Ratio NOT REPORTED [place], [place] Calcium [Mass/Vol] 9.3 mg/dL 8.6 - 10. 4 mg/dL [place] Chloride [Moles/Vol] 99 mmol/L 98 - 107 mmol/L [place] CO2 [Moles/Vol] 30 mmol/L 20 - 31 mmol/L [place] Creatinine [Mass/Vol] 1.54 mg/dL High 0.5 - 0.9 mg/d L [place], [place] GFR 41 mL/min Low >60 [place] GFR Non- 34 mL/min Low >60 [place] GFR/1.73 sq M predicted among non-blacks MDRD (S/P/Bld) [Vol rate/Area] [place] Comment on above: Average GFR for 60-6 9 years old: 85 mL/min/1.73sq m Chronic Kidney Disease: <60 mL/min/1.73sq m Kidney failure: <15 mL/min/1.73sq m eGFR calculated using average adult body mass. Additional eGFR calculator available at: http://www.[employer].fanatix/multiple_crcl_2012.htm GFR/1.73 sq M predicted among non-blacks MDRD (S/P/Bld) [Vol rate/Area] NOT REPORTED [place], [place] Glucose [Mass/Vol] 145 mg/dL High 70 - 99 mg/dL [place] Interpretation and review of laboratory results Abnormal [place] Potassium [Moles/Vol] 3.7 mmol/L 3.7 - 5.3 mmol/L [place] Sodium [Moles/Vol] 140 mmol/L 135 - 144 mmol/L [place] Urea nitrogen [Mass/Vol] 40 mg/dL High 8 - 23 mg/dL [place] Basic Metabolic Profon 02-14 (cont.) Normal [facility] Comment on above: Result Comment: Aver age GFR for 60-69 years old: 85 mL/min/1.73sq m Chronic Kidney Disease: <60 mL/min/1.73sq m Kidney failure: <15 mL/min/1.73sq m eGFR calculated using average adult body mass. Additional eGFR calculator available at: http://www.[employer] ([employer])/multiple_crcl_2012.htm Performed By: #### C BC, PTT #### [facility] [employer] [address] [place] [phone] Slate Trimmer: Ky Fraser MD Anion gap [Moles/Vol] 14 mmol/L Normal 9-17 [facility] Comment on above: Performed By: #### C BC, PTT #### [facility] [employer] [address] [place] [phone] Slate Trimmer: Ky Fraser MD Calcium [Mass/Vol] 9.7 mg/dL Normal 8.6-10.4 [facility] Comment on above: Performed By: #### C BC, PTT #### [facility] [employer] [address] [place] [phone] Slate Trimmer: Ky Fraser MD Chloride [Moles/Vol] 98 mmol/L Normal 98-[address] [facility] Comment on above: Performed By: #### C BC, PTT #### [facility] [address] [place] [phone] Slate Trimmer: Ky Fraser MD CO2 [Moles/Vol] 27 mmol/L Normal 20-31 [facility] Comment on above: Performed By: #### C BC, PTT #### [facility] [employer] [address] [place] [phone] Slate Trimmer: Ky Fraser MD Creatinine [Mass/Vol] 1.61 mg/dL High 0.50-0.90 [facility] Comment on above: Performed By: #### C BC, PTT #### [facility] [address] [place] [address] Slate Trimmer: Ky Fraser MD GFR, Amer 39 mL/min Low >60 [facility] Comment on above: Performed By: #### C BC, PTT #### [facility] [address] [place] [phone] Slate Trimmer: Ky Fraser MD GFR,non Amer 32 mL/min Low >[address] [facility] Comment on above: Performed By: #### C BC, PTT #### [facility] [address] [place] [phone] Slate Trimmer: Ky Fraser MD Glucose [Mass/Vol] 163 mg/dL High 70-99 [facility] Comment on above: Performed By: #### C BC, PTT #### [facility] [employer] [address] [place] [phone] Slate Trimmer: Ky Fraser MD Potassium [Moles/Vol] 4.3 mmol/L Normal 3.7-5.3 [facility] Comment on above: Performed By: #### C BC, PTT #### [facility] [address] [place] [phone] Slate Trimmer: Ky Fraser MD Sodium [Moles/Vol] 139 mmol/L Normal 135-144 [facility] Comment on above: Performed By: #### C BC, PTT #### [facility] [address] [place] [phone] Slate Trimmer: Ky Fraser MD Urea nitrogen [Mass/Vol] 41 mg/dL High 8-23 [facility] Comment on above: Performed By: #### C BC, PTT #### [facility] [address] [place] [phone] Slate Trimmer: Ky Fraser MD BUN/CRE Ratio NOT REPORTED Normal 9-20 [facility] Comment on above: Performed By: #### C BC, PTT #### [facility] [address] [place], [place] [phone] Slate Trimmer: Ky Fraser MD Staging: NOT REPORTED Normal [facility] Comment on above: Performed By: #### C BC, PTT #### [facility] [address] [place], [place] [phone] Slate Trimmer: Ky Fraser MD Blood Bank Specimenon 2019 Blood Bank Specimen NOT REPORTED Normal [facility] CALCIUM, IONIC (POC)on 02-14 POC Ionized Calcium 1.25 mmol/L 1.15 - 1 .33 mmol/L [place] CBC auto differentialon Basophils (Bld) [#/Vol] 0.00 10*3/uL [place] Basophils/100 WBC (Bld) 0 % 0 - 2 % [place] Differential Type NOT REPORTED [place] Eosinophils (Bld) [#/Vol] 0.00 10*3/uL [place] Eosinophils/100 WBC (Bld) 0 % Low 1 - 4 % [place] Erythrocyte distribution width (RBC) [Ratio] 16.8 % High 11.8 - 14.4 % [place] Hematocrit (Bld) [Volume fraction] 31.5 % Low 36.3 - 47.1 % [place] Hemoglobin (Bld) [Mass/Vol] 8.7 g/dL Low 11.9 - 15.1 g/dL [place] Immature granulocytes (Bld) [#/Vol] 0 % 0 [place] Immature granulocytes (Bld) [#/Vol] 0.00 10*3/uL [place] Interpretation and review of laboratory results Abnormal [place] Lymphocytes (Bld) [#/Vol] 1.27 10*3/uL [place] Lymphocytes/100 WBC (Bld) 9 % Low 24 - 44 % [place] MCH (RBC) [Entitic mass] 25.4 pg 25.2 - 33.5 pg [place] MCHC (RBC) [Mass/Vol] 27.6 g/dL Low 28.4 - 34.8 g/dL [place] MCV (RBC) [Entitic vol] 91.8 fL 82.6 - 102.9 fL [place] Monocytes (Bld) [#/Vol] 0.99 10*3/uL High [place] Monocytes/100 WBC (Bld) 7 % 1 - 7 % [place] Morphology Darryn (Bld) [Interp] ANISOCYTOSIS PRESENT [place] Platelet mean volume (Bld) [Entitic vol] 11.7 fL 8.1 - 13.5 fL [place] Platelets (Bld) [#/Vol] 246 10*3/uL [place] Platelets (Bld) [#/Vol] NOT REPORTED [place] RBC (Bld) [#/Vol] 3.43 10*6/uL Low 3.95 - 5.1 1 m/uL [place] RBC morphology finding Nom (Bld) NOT REPORTED [place] Segmented neutrophils/100 WBC (Bld) 84 % High 36 - 66 % [place] Segs Absolute 11.84 High [place] WBC (Bld) [#/Vol] 14.1 10*3/uL [place] WBC (Bld) [#/Vol] 0.0 10*3/uL 0.0 per 100 WBC M [place] WBC Morphology NOT REPORTED [place] CBC with Diffon 02-15-2020 Abs. Basophil 0.00 k/uL Normal 0.0-0.2 [facility] Comment on above: Performed By: #### T YS #### [employer] [address] [place] [id number] Slate Trimmer: Ky Fraser MD Abs.Imm.Granulocyte 0.00 k/uL Normal 0.00-0.30 [facility] Comment on above: Performed By: #### T YS #### [address] [address] Slate Trimmer: Ky Fraser MD Abs.Neutrophil (Seg) 11.84 k/uL High 1.8-7.[address] [facility] Comment on above: Performed By: #### T YS #### [address] [address] Slate Trimmer: Ky Fraser MD Basophils/100 WBC (Bld) 0 % Normal 0-2 [facility] Comment on above: Performed By: #### T YS #### [address] [address] Slate Trimmer: Ky Fraser MD Eosinophils (Bld) [#/Vol] 0.00 10*3/uL Normal 0.0-0.4 [facility] Comment on above: Performed By: #### T YS #### [address] [address] Slate Trimmer: Ky Fraser MD Eosinophils/100 WBC (Bld) 0 % Low 1-4 [facility] Comment on above: Performed By: #### T YS #### [address] [address] Slate Trimmer: Ky Fraser MD Immature granulocytes/100 WBC (Bld) 0 % Normal 0 [facility] Comment on above: Performed By: #### T YS #### [address] [address] Slate Trimmer: Ky Fraser MD Lymphocytes (Bld) [#/Vol] 1.27 10*3/uL Normal 1.0-4.8 [facility] Comment on above: Performed By: #### T YS #### [address] [address] Slate Trimmer: Ky Fraser MD Lymphocytes/100 WBC (Bld) 9 % Low 24-44 [facility] Comment on above: Performed By: #### T YS #### [address] [address] Slate Trimmer: Ky Fraser MD Monocytes (Bld) [#/Vol] 0.99 10*3/uL High 0.1-0.8 [facility] Comment on above: Performed By: #### T YS #### [address] [address] Slate Trimmer: Ky Fraser MD Monocytes/100 WBC (Bld) 7 % Normal 1-7 [facility] Comment on above: Performed By: #### T YS #### [address] [address] Slate Trimmer: Ky Fraser MD Morphology Darryn (Bld) [Interp] ANISOCYTOSIS PRESENT Normal [facility] Comment on above: Performed By: #### T YS #### [address] [address] Slate Trimmer: Ky Fraser MD Neutrophil (Seg) 84 % High 36-66 [facility] Comment on above: Performed By: #### T YS #### [address] [address] Slate Trimmer: Ky Fraser MD Erythrocyte distribution width (RBC) [Ratio] 16.8 % High 11.8-14.4 [facility] Comment on above: Performed By: #### T YS #### [address] [address] Slate Trimmer: Ky Fraser MD Hematocrit (Bld) [Volume fraction] 31.5 % Low 36.3-47.1 [facility] Comment on above: Performed By: #### T YS #### [address] [address] Slate Trimmer: Ky Fraser MD Hemoglobin (Bld) [Mass/Vol] 8.7 g/dL Low 11.9-15.1 [facility] Comment on above: Performed By: #### T YS #### [address] [address] Slate Trimmer: Ky Fraser MD MCH (RBC) [Entitic mass] 25.4 pg Normal 25.2-33.5 [facility] Comment on above: Performed By: #### T YS #### [address] [address] Slate Trimmer: Ky Fraser MD MCHC (RBC) [Mass/Vol] 27.6 g/dL Low 28.4-34.8 [facility] Comment on above: Performed By: #### T YS #### [address] [address] Slate Trimmer: Ky Fraser MD MCV (RBC) [Entitic vol] 91.8 fL Normal 82.6-102.9 [facility] Comment on above: Performed By: #### T YS #### [address] [address] Slate Trimmer: Ky Fraser MD NRBC Automated 0.0 per 100 WBC Normal 0.0 [facility] Comment on above: Performed By: #### T YS #### [address] [address] Slate Trimmer: Ky Fraser MD Platelet mean volume (Bld) [Entitic vol] 11.7 fL Normal 8.1-13.5 [facility] Comment on above: Performed By: #### T YS #### [address] [address] Slate Trimmer: Ky Fraser MD Platelets (Bld) [#/Vol] 246 10*3/uL Normal 138-453 [facility] Comment on above: Performed By: #### T YS #### [address] [address] Slate Trimmer: Ky Fraser MD RBC (Bld) [#/Vol] 3.43 10*6/uL Low 3.95-5.11 [facility] Comment on above: Performed By: #### T YS #### [address] [address] Slate Trimmer: Ky Fraser MD WBC (Bld) [#/Vol] 14.1 10*3/uL High 3.5-11.3 [facility] Comment on above: Performed By: #### T YS #### [address] [address] Slate Trimmer: Ky Fraser MD Auto Diff Performed NOT REPORTED Normal [facility] Comment on above: Performed By: #### T YS #### [address] [address] Slate Trimmer: Ky Fraser MD Platelet Estimate NOT REPORTED Normal [facility] Comment on above: Performed By: #### T YS #### [address] [address] Slate Trimmer: Ky Fraser MD RBC morphology finding Nom (Bld) NOT REPORTED Normal [facility] Comment on above: Performed By: #### T YS #### [address] [address] Slate Trimmer: Ky Fraser MD WBC Morphology NOT REPORTED Normal [facility] Comment on above: Performed By: #### T YS #### [address] [address] Slate Trimmer: Ky Fraser MD CHLORIDE (POC)on 02-15-2020 Chloride [Moles/Vol] 99 mmol/L 98 - 107 mmol/L [place] Calcium, Ionicon 02-15-2020 Calcium [Moles/Vol] 1.25 mmol/L Normal 1.13-1.[address] [facility] Comment on above: Performed By: #### C BC, PTT #### [facility] [address] [id number] Slate Trimmer: Ky Fraser MD Creatinine W/GFR Point of Ca reon 02-15-2020 Creatinine [Mass/Vol] 1.96 mg/dL High 0.51 - 1.19 mg/dL [place] GFR Non- 26 mL/min Low >60 [place] GFR/1.73 sq M predicted among non-blacks MDRD (S/P/Bld) [Vol rate/Area] [place] Comment on above: Average GFR for 60-6 9 years old: 85 mL/min/1.73sq m Chronic Kidney Disease: <60 mL/min/1.73sq m Kidney failure: <15 mL/min/1.73sq m eGFR calculated using average adult body mass. Additional eGFR calculator available at: http://www.[employer])/multiple_crcl_2012.htm GFR/1.73 sq M predicted among non-blacks MDRD (S/P/Bld) [Vol rate/Area] 31 mL/min/{1.73_m2} Low >60 [place] HEMOGLOBIN AND HEMATOCRIT, B Alan 02-15-2020 Hematocrit (Bld) [Volume fraction] 27.5 % Low 36.3 - 47.1 % [place] Hemoglobin (Bld) [Mass/Vol] 7.8 g/dL Low 11.9 - 15.1 g/dL [place] Interpretation and review of laboratory results Abnormal [place] Hematocrit (Bld) [Volume fraction] 28.0 % Low 36.3 - 47.1 % [place] Hemoglobin (Bld) [Mass/Vol] 7.9 g/dL Low 11.9 - 15.1 g/dL [place] Interpretation and review of laboratory results Abnormal [place] Hematocrit (Bld) [Volume fraction] 26.3 % Low 36.3 - 47.1 % [place] Hemoglobin (Bld) [Mass/Vol] 8.0 g/dL Low 11.9 - 15.1 g/dL [place] Interpretation and review of laboratory results Abnormal [place] Hematocrit (Bld) [Volume fraction] 28.4 % Low 36.3 - 47.1 % [place] Hemoglobin (Bld) [Mass/Vol] 8.1 g/dL Low 11.9 - 15.1 g/dL [place] Interpretation and review of laboratory results Abnormal [place] Hemoglobin and hematocrit, b loodon 02-15-2020 Hematocrit (Bld) [Volume fraction] 30 % Low 36 - 46 % [place] Hemoglobin (Bld) [Mass/Vol] 10.2 g/dL Low 12 - 16 g/dL [place] Hgb/Hcton 02-15-2020 Hematocrit (Bld) [Volume fraction] 26.3 % Low 36.3-47.1 [facility] Comment on above: Performed By: #### T YS #### [facility] [employer] [address] [place] [address] Slate Trimmer: Ky Fraser MD Hemoglobin (Bld) [Mass/Vol] 8.0 g/dL Low 11.9-15.1 [facility] Comment on above: Performed By: #### T YS #### [facility] [address] [place] [address] [phone] Slate Trimmer: Ky Fraser MD Hematocrit (Bld) [Volume fraction] 28.4 % Low 36.3-47.1 [facility] Comment on above: Performed By: #### C BC, PTT #### [facility] [address] [place] [address] Slate Trimmer: Ky Fraser MD Hemoglobin (Bld) [Mass/Vol] 8.1 g/dL Low 11.9-15.1 [facility] Comment on above: Performed By: #### C HARMAN, PTT #### [facility] [address] [place], [place] [phone] Slate Trimmer: Ky Fraser MD Ionized Calciumon 02-15-2020 Calcium [Mass/Vol] 1.25 mmol/L 1.13 - 1. 33 mmol/L [place] Lactic Acid, POCon 0 POC Lactic Acid 0.40 mmol/L Low 0.56 - 1.39 mmol/L [place] POC Lactic Acid 0.49 mmol/L Low 0.56 - 1.39 mmol/L [place] Magnesiumon 02-15-2020 Magnesium [Mass/Vol] 2.2 mg/dL Normal 1.6-2.[address] [facility] Comment on above: Performed By: #### C HARMAN, PTT #### [facility] [address] [place], [place] [phone] Slate Trimmer: Ky Fraser MD Magnesium [Mass/Vol] 2.2 mg/dL 1.6 - 2.6 mg/dL [place] Otheron 02-15-2020 Interpretation and review of laboratory results Abnormal [place] Interpretation and review of laboratory results Abnormal [place] Interpretation and review of laboratory results Abnormal [place] POC Glucose Fingerstickon Glucose [Mass/Vol] 169 mg/dL High 65 - 105 mg/dL [place], [place] Interpretation and review of laboratory results Abnormal [place] Glucose [Mass/Vol] 115 mg/dL High 65 - 105 mg/dL [place] Interpretation and review of laboratory results Abnormal [place] POCT Glucoseon 02-15-2020 Glucose [Mass/Vol] 143 mg/dL High 74 - 100 mg/dL [place], [place] Glucose [Mass/Vol] 169 mg/dL High 74 - 100 mg/dL [place] Glucose [Mass/Vol] 163 mg/dL High 74 - 100 mg/dL [place] POTASSIUM (POC)on 02-15-2020 Potassium [Moles/Vol] 3.6 mmol/L 3.5 - 4.5 mmol/L [place] Phosphoruson 02-15-2020 Phosphate [Mass/Vol] 4.5 mg/dL 2.6 - 4.5 mg/dL [place] Phosphorus, Inorg.on 020 Phosphorus, Inorg. 4.5 mg/dL Normal 2.6-4.5 [facility] Comment on above: Performed By: #### T YS #### [facility] [address] [place] [address] Slate Trimmer: Ky Fraser MD SODIUM (POC)on 02-15-2020 Sodium [Moles/Vol] 142 mmol/L 138 - 146 mmol/L [place] Troponinon 02-15-2020 Interpretation and review of laboratory results Abnormal [place] Troponin I.cardiac [Mass/Vol] NOT REPORTED [place] Troponin T.cardiac [Mass/Vol] NOT REPORTED <0.03 ng/mL [place] Troponin, High Sensitivity 240 ng/L Critically high 0 - 14 ng/L [place] Comment on above: High Sensitivity Troponin values cannot be compared with other Troponin methodologies. Patients with high levels of Biotin oral intake (i.e >5mg/day) may have falsely decreased Troponin levels. Samples collected within 8 hours of biotin intake may require additional information for diagnosis. Previous Alert Value Reported Troponin, High Sens 204 ng/L Critically high 0-14 [facility] Comment on above: Result Comment: High Sensitivity Troponin values cannot be compared with other Troponin methodologies. Patients with high levels of Biotin oral intake (i.e >5mg/day) may have falsely decreased Troponin levels. Samples collected within 8 hours of biotin intake may require additional information for diagnosis. Previous Alert Value Reported Performed By: #### T ROPI #### [employer] [address] [place] [address] Slate Trimmer: Ky Fraser MD Troponin Interp. NOT REPORTED Normal [facility] Comment on above: Performed By: #### T ROPI #### [facility] [address] [place], [place] [phone] Slate Trimmer: Ky Fraser MD Troponin T NOT REPORTED Normal <0.03 [facility] Comment on above: Performed By: #### T ROPI #### [facility] [address] [place] [address] [id number] Slate Trimmer: Ky Fraser MD Interpretation and review of laboratory results Abnormal [place] Troponin I.cardiac [Mass/Vol] NOT REPORTED [place] Troponin T.cardiac [Mass/Vol] NOT REPORTED <0.03 ng/mL [place] Troponin, High Sensitivity 204 ng/L Critically high 0 - 14 ng/L [place] Comment on above: High Sensitivity Troponin values cannot be compared with other Troponin methodologies. Patients with high levels of Biotin oral intake (i.e >5mg/day) may have falsely decreased Troponin levels. Samples collected within 8 hours of biotin intake may require additional information for diagnosis. Previous Alert Value Reported Troponin, High Sens 163 ng/L Critically high 0-14 [facility] Comment on above: Result Comment: High Sensitivity Troponin values cannot be compared with other Troponin methodologies. Patients with high levels of Biotin oral intake (i.e >5mg/day) may have falsely decreased Troponin levels. Samples collected within 8 hours of biotin intake may require additional information for diagnosis. Previous Alert Value Reported Performed By: #### T YS #### [facility] [address] [place], [place] [phone] Slate Trimmer: Ky Fraser MD Interpretation and review of laboratory results Abnormal [place] Troponin I.cardiac [Mass/Vol] NOT REPORTED [place] Troponin T.cardiac [Mass/Vol] NOT REPORTED <0.03 ng/mL [place] Troponin, High Sensitivity 163 ng/L Critically high 0 - 14 ng/L [place] Comment on above: High Sensitivity Troponin values cannot be compared with other Troponin methodologies. Patients with high levels of Biotin oral intake (i.e >5mg/day) may have falsely decreased Troponin levels. Samples collected within 8 hours of biotin intake may require additional information for diagnosis. Previous Alert Value Reported Troponin Interp. NOT REPORTED Normal [facility] Comment on above: Performed By: #### T YS #### [facility] [address] [place] [phone] Slate Trimmer: Ky Fraser MD Troponin T NOT REPORTED Normal <0.03 [facility] Comment on above: Performed By: #### T YS #### [facility] [address] [place] [phone] Slate Trimmer: Ky Fraser MD Type + Screenon 02-15-2020 Type + Screen Sample Expiration 02/18/2020,2359 Arm Band Number [id number] ABO/Rh(D) O POSITIVE Antibody Screen POSITIVE Antibody Ident The positive antibody screening test has been evaluated for specific antibody identification with a diagnostic antigen panel. The patient's sample is found to contain an antibody with no apparent specificity. Clinically significant alloantibodies to common red cell antigens are ruled out. AMY, Anti-IgG Charla Serum NEGATIVE Unit Number [id number] Blood Component Type Leukocyte Reduced Red Cell Unit Division 00 Status of Unit REL FROM ALLOC Transfusion Status OK TO TRANSFUSE Crossmatch Result COMPATIBLE Unit Number [id number] Blood Component Type Leukocyte Reduced Red Cell Unit Division 00 Status of Unit REL FROM ALLOC Transfusion Status OK TO TRANSFUSE Crossmatch Result COMPATIBLE Normal [facility] Comment on above: Performed By: #### T YS #### [facility] [address] [place] [phone] Slate Trimmer: yK Fraser MD XR CHEST PORTABLEon 02-15-20 20 XR CHEST PORTABLE EXAMINATION: ONE XRAY VIEW OF THE CHEST 02/15/2020 3:14 pm COMPARISON: February 14, 2020, chest exam HISTORY: ORDERING SYSTEM PROVIDED HISTORY: intubated TECHNOLOGIST PROVIDED HISTORY: intubated Reason for Exam: supine port Acuity: Unknown Type of Exam: Subsequent/Follow-up FINDINGS: Stable endotracheal nasogastric tubes, pacemaker leads, heart valve and cardiomegaly Interval improvement in still moderate diffuse prominence/indistinc tness of pulmonary vascularity with interval decrease in still moderate left retrocardiac opacity IMPRESSION: Stable support lines/leads Improvement in still ltxw-uh-nbztuyvh vascular congestion Decrease in still moderate left basilar opacity related to combined pleural-parenchymal process Interpreted by: Jenny Ventura MD Signed by: Jenny Ventura MD 02/15/20 Final result Normal [facility] EXAMINATION: ONE XRAY VIEW OF THE CHEST 02/15/2020 3:14 pm COMPARISON: February 14, 2020, chest exam HISTORY: ORDERING SYSTEM PROVIDED HISTORY: intubated TECHNOLOGIST PROVIDED HISTORY: intubated Reason for Exam: supine port Acuity: Unknown Type of Exam: Subsequent/Follow-up FINDINGS: Stable endotracheal nasogastric tubes, pacemaker leads, heart valve and cardiomegaly Interval improvement in still moderate diffuse prominence/indistinc tness of pulmonary vascularity with interval decrease in still moderate left retrocardiac opacity [place] Cristof[employer], [facility] Incoming Radiant Results From [employer]acs - 02/15/2020 3:28 PM EDT EXAMINATION: ONE XRAY VIEW OF THE CHEST 02/15/2020 3:14 pm COMPARISON: February 14, 2020, chest exam HISTORY: ORDERING SYSTEM PROVIDED HISTORY: intubated TECHNOLOGIST PROVIDED HISTORY: intubated Reason for Exam: supine port Acuity: Unknown Type of Exam: Subsequent/Follow-up FINDINGS: Stable endotracheal nasogastric tubes, pacemaker leads, heart valve and cardiomegaly Interval improvement in still moderate diffuse prominence/indistinc tness of pulmonary vascularity with interval decrease in still moderate left retrocardiac opacity IMPRESSION: Stable support lines/leads Improvement in still fezb-fw-ooqzkukv vascular congestion Decrease in still moderate left basilar opacity related to combined pleural-parenchymal process [place] Stable support lines/leads Improvement in still faqp-uc-gvvlndxp vascular congestion Decrease in still moderate left basilar opacity related to combined pleural-parenchymal process [place] APTTon 02-14-2020 aPTT Coag (Bld) [Time] 28.3 s Normal 20.5-30.5 [facility] Comment on above: Result Comment: IV Heparin Therapy Range: 48.6-77.8 Performed By: #### R REEL REPAIRER #### [employer] [address] [place] [address] [place] [phone] Slate Trimmer: Ky Fraser MD aPTT Coag (Bld) [Time] 28.3 s [place] Comment on above: IV Heparin Therapy Range: 48.6-77.8 aPTT Coag (Bld) [Time] 26.8 s Normal 20.5-30.5 [facility] Comment on above: Result Comment: IV Heparin Therapy Range: 48.6-77.8 Performed By: #### C BC, PTT #### [facility] [address] [place], [place] [phone] Slate Trimmer: Ky Fraser MD aPTT Coag (Bld) [Time] 26.8 s [place] Comment on above: IV Heparin Therapy Range: 48.6-77.8 Arterial Blood Gas, POCon Lluvia Test NOT REPORTED [place] aPTT Coag (Bld) [Time] NOT REPORTED [place] FIO2 NOT REPORTED [place] Interpretation and review of laboratory results Abnormal [place] Mode NOT REPORTED [place] Negative Base Excess, Art NOT REPORTED [place] O2 Device/Flow/% NOT REPORTED [place] Oxygen saturation in Blood 90 % Low 94 - 98 % [place] POC HCO3 35.4 mmol/L High 21 - 28 mmol/L [place] POC pCO2 65.5 High [place] POC pCO2 Temp NOT REPORTED mm Hg [place] POC pH 7.340 Low [place] POC pH Temp NOT REPORTED [place] POC PO2 65.0 Low [place] POC pO2 Temp NOT REPORTED mm Hg [place] Positive Base Excess, Art 8 High [place] Sample Site NOT REPORTED [place] TCO2 (calc), Art 37 mmol/L High 22 - 29 mmol/L [place] Lluvia Test Positive [place] aPTT Coag (Bld) [Time] NOT REPORTED [place] FIO2 50.0 [place] Interpretation and review of laboratory results Abnormal [place] Mode NOT REPORTED [place] Negative Base Excess, Art NOT REPORTED [place] O2 Device/Flow/% Adult Ventilator [place] Oxygen saturation in Blood 91 % Low 94 - 98 % [place] POC HCO3 31.2 mmol/L High 21 - 28 mmol/L [place] POC pCO2 54.8 High [place] POC pCO2 Temp NOT REPORTED mm Hg [place] POC pH 7.363 [place] POC pH Temp NOT REPORTED [place] POC PO2 64.9 Low [place] POC pO2 Temp NOT REPORTED mm Hg [place] Positive Base Excess, Art 5 High [place] Sample Site Left Radial Artery [place] TCO2 (calc), Art 33 mmol/L High 22 - 29 mmol/L [place] BASIC METABOLIC PANELon 10-0 Anion gap [Moles/Vol] 14 mmol/L 9 - 17 mmol/L [place] Bun/Cre Ratio NOT REPORTED [place] Calcium [Mass/Vol] 9.3 mg/dL 8.6 - 10. 4 mg/dL [place] Chloride [Moles/Vol] 99 mmol/L 98 - 107 mmol/L [place] CO2 [Moles/Vol] 27 mmol/L 20 - 31 mmol/L [place] Creatinine [Mass/Vol] 1.48 mg/dL High 0.5 - 0.9 mg/d L [place] GFR 43 mL/min Low >60 [place] GFR Non- 36 mL/min Low >60 [place] GFR/1.73 sq M predicted among non-blacks MDRD (S/P/Bld) [Vol rate/Area] [place] Comment on above: Average GFR for 60-6 9 years old: 85 mL/min/1.73sq m Chronic Kidney Disease: <60 mL/min/1.73sq m Kidney failure: <15 mL/min/1.73sq m eGFR calculated using average adult body mass. Additional eGFR calculator available at: http://www.[employer])/multiple_crcl_2012.htm GFR/1.73 sq M predicted among non-blacks MDRD (S/P/Bld) [Vol rate/Area] NOT REPORTED [place] Glucose [Mass/Vol] 178 mg/dL High 70 - 99 mg/dL [place], [place] Interpretation and review of laboratory results Abnormal [place] Potassium [Moles/Vol] 4.3 mmol/L 3.7 - 5.3 mmol/L [place] Sodium [Moles/Vol] 140 mmol/L 135 - 144 mmol/L [place] Urea nitrogen [Mass/Vol] 29 mg/dL High 8 - 23 mg/dL [place] BLOOD GAS, VENOUSon 02-14-20 20 Lluvia Test NOT REPORTED [place] aPTT Coag (Bld) [Time] 37.0 s [place] Carboxyhemoglobin 1.7 % 0 - 5 % [place] Comment on above: Reference Range: Non-Smokers 0-2% Average Smoker 2-4% Heavy Smoker <10% FIO2 INFORMATION NOT PROVIDED [place] HCO3, Venous 30.8 mmol/L High 24 - 30 mmol/L [place] Interpretation and review of laboratory results Abnormal [place] Methemoglobin NOT REPORTED 0 - 1.5 % [place] Mode NOT REPORTED [place] Negative Base Excess, Los NOT REPORTED 0 - 2 mmol/L [place] NOTIFICATION NOT REPORTED [place] NOTIFICATION TIME NOT REPORTED [place] O2 Device/Flow/% NOT REPORTED [place] Oxygen saturation in Blood 98.7 % High 60 - 85 % [place] Oxyhemoglobin NOT REPORTED 95 - 98 % [place] pCO2, Los 61.8 High [place] pCO2, [place], Temp Adj NOT REPORTED [place] Peep/Cpap NOT REPORTED [place] pH, Los 7.318 Low [place] pH, [place], Temp Adj NOT REPORTED [place] pO2, Los 128.0 High [place] pO2, [place], Temp Adj NOT REPORTED [place] Positive Base Excess, Los 4.2 mmol/L High 0 - 2 mmol/L [place] PSV NOT REPORTED [place] Pt. Position NOT REPORTED [place] Sample Site NOT REPORTED [place] Set Rate NOT REPORTED [place] Text for Respiratory NOT REPORTED [place] Total Hb NOT REPORTED 12 - 16 g/dl [place] Total Rate NOT REPORTED [place] VT NOT REPORTED [place] Basic Metabolic Panelon 10-0 Anion gap [Moles/Vol] 17 mmol/L 9 - 17 mmol/L [place] Bun/Cre Ratio NOT REPORTED [place] Calcium [Mass/Vol] 9.4 mg/dL 8.6 - 10. 4 mg/dL [place] Chloride [Moles/Vol] 99 mmol/L 98 - 107 mmol/L [place] CO2 [Moles/Vol] 25 mmol/L 20 - 31 mmol/L [place] Creatinine [Mass/Vol] 1.37 mg/dL High 0.5 - 0.9 mg/d L [place] GFR 47 mL/min Low >60 [place] GFR Non- 39 mL/min Low >60 [place] GFR/1.73 sq M predicted among non-blacks MDRD (S/P/Bld) [Vol rate/Area] NOT REPORTED [place] GFR/1.73 sq M predicted among non-blacks MDRD (S/P/Bld) [Vol rate/Area] [place] Comment on above: Average GFR for 60-6 9 years old: 85 mL/min/1.73sq m Chronic Kidney Disease: <60 mL/min/1.73sq m Kidney failure: <15 mL/min/1.73sq m eGFR calculated using average adult body mass. Additional eGFR calculator available at: http://www.[employer] ([employer])/multiple_crcl_2012.htm Glucose [Mass/Vol] 188 mg/dL High 70 - 99 mg/dL [place] Interpretation and review of laboratory results Abnormal [place] Potassium [Moles/Vol] 4.2 mmol/L 3.7 - 5.3 mmol/L [place] Sodium [Moles/Vol] 141 mmol/L 135 - 144 mmol/L [place] Urea nitrogen [Mass/Vol] 30 mg/dL High 8 - 23 mg/dL [place] Basic Metabolic Profon 02-13 (cont.) Normal [facility] Comment on above: Result Comment: Aver age GFR for 60-69 years old: 85 mL/min/1.73sq m Chronic Kidney Disease: <60 mL/min/1.73sq m Kidney failure: <15 mL/min/1.73sq m eGFR calculated using average adult body mass. Additional eGFR calculator available at: http://www.[employer] ([employer])/multiple_crcl_2012.htm Performed By: #### B MP, ELIZABETH, MG, CDP, IOCAL #### [facility] [employer] [address] [place], [place] [phone] Slate Trimmer: Ky Fraser MD Anion gap [Moles/Vol] 17 mmol/L Normal 9-17 [facility] Comment on above: Performed By: #### B MP, ELIZABETH, MG, CDP, IOCAL #### [facility] [employer] [address] [place] [phone] Slate Trimmer: Ky Fraser MD Calcium [Mass/Vol] 9.4 mg/dL Normal 8.6-10.4 [facility] Comment on above: Performed By: #### B MP, ELIZABETH, MG, CDP, IOCAL #### [facility] [address] [place] [phone] Slate Trimmer: Ky Fraser MD Chloride [Moles/Vol] 99 mmol/L Normal 98-[address] [facility] Comment on above: Performed By: #### B MP, ELIZABETH, MG, CDP, IOCAL #### [facility] [address] [place] [phone] Slate Trimmer: Ky Fraser MD CO2 [Moles/Vol] 25 mmol/L Normal 20-31 [facility] Comment on above: Performed By: #### B MP, ELIZABETH, MG, CDP, IOCAL #### [facility] [employer] [address] [place] [address] Slate Trimmer: Ky Fraser MD Creatinine [Mass/Vol] 1.37 mg/dL High 0.50-0.90 [facility] Comment on above: Performed By: #### B MP, ELIZABETH, MG, CDP, IOCAL #### [facility] [employer] [address] [place] [phone] Slate Trimmer: Ky Fraser MD GFR, Amer 47 mL/min Low >60 [facility] Comment on above: Performed By: #### B MP, ELIZABETH, MG, CDP, IOCAL #### [facility] [employer] [address] [place] [phone] Slate Trimmer: Ky Fraser MD GFR,non Amer 39 mL/min Low >[address] [facility] Comment on above: Performed By: #### B MP, ELIZABETH, MG, CDP, IOCAL #### [facility] [address] [place] [address] Slate Trimmer: Ky Fraser MD Glucose [Mass/Vol] 188 mg/dL High 70-99 [facility] Comment on above: Performed By: #### B MP, ELIZABETH, MG, CDP, IOCAL #### [facility] [address] [place] [address] Slate Trimmer: Ky Fraser MD Potassium [Moles/Vol] 4.2 mmol/L Normal 3.7-5.3 [facility] Comment on above: Performed By: #### B MP, ELIZABETH, MG, CDP, IOCAL #### [address] [address] Slate Trimmer: Ky Fraser MD Sodium [Moles/Vol] 141 mmol/L Normal 135-144 [facility] Comment on above: Performed By: #### B MP, ELIZABETH, MG, CDP, IOCAL #### [facility] [employer] [address] [place] [address] Slate Trimmer: Ky Fraser MD Urea nitrogen [Mass/Vol] 30 mg/dL High 8-23 [facility] Comment on above: Performed By: #### B MP, ELIZABETH, MG, CDP, IOCAL #### [address] [address] Slate Trimmer: Ky Fraser MD BUN/CRE Ratio NOT REPORTED Normal - [facility] Comment on above: Performed By: #### B MP, ELIZABETH, MG, CDP, IOCAL #### [facility] [employer] [address] [place] [phone] Slate Trimmer: Ky Fraser MD Staging: NOT REPORTED Normal [facility] Comment on above: Performed By: #### B MP, ELIZABETH, MG, CDP, IOCAL #### [address] [address] Slate Trimmer: Ky Fraser MD (cont.) [facility] Comment on above: Result Comment: Aver age GFR for 60-69 years old: 85 mL/min/1.73sq m Chronic Kidney Disease: <60 mL/min/1.73sq m Kidney failure: <15 mL/min/1.73sq m eGFR calculated using average adult body mass. Additional eGFR calculator available at: http://www.[employer].com/multiple_crcl_2012.htm Performed By: #### R REEL REPAIRER #### [address] [address] Slate Trimmer: Ky Fraser MD Anion gap [Moles/Vol] 14 mmol/L Normal 9-17 [facility] Comment on above: Performed By: #### R REEL REPAIRER #### [address] [address] Slate Trimmer: Ky Fraser MD Calcium [Mass/Vol] 9.3 mg/dL Normal 8.6-10.4 [facility] Comment on above: Performed By: #### R REEL REPAIRER #### [address] [address] Slate Trimmer: Ky Fraser MD Chloride [Moles/Vol] 99 mmol/L Normal 98-[address] [facility] Comment on above: Performed By: #### R REEL REPAIRER #### [address] [address] Slate Trimmer: Ky Fraser MD CO2 [Moles/Vol] 27 mmol/L Normal 20-31 [facility] Comment on above: Performed By: #### R REEL REPAIRER #### [address] [address] Slate Trimmer: Ky Fraser MD Creatinine [Mass/Vol] 1.48 mg/dL High 0.50-0.90 [facility] Comment on above: Performed By: #### R REEL REPAIRER #### [address] [address] Slate Trimmer: Ky Fraser MD GFR, Amer 43 mL/min Low >60 [facility] Comment on above: Performed By: #### R REEL REPAIRER #### [address] [address] Slate Trimmer: Ky Fraser MD GFR,non Amer 36 mL/min Low >[address] [facility] Comment on above: Performed By: #### R REEL REPAIRER #### [address] [address] Slate Trimmer: Ky Fraser MD Glucose [Mass/Vol] 178 mg/dL High 70-99 [facility] Comment on above: Performed By: #### R REEL REPAIRER #### [address] [address] Slate Trimmer: Ky Fraser MD Potassium [Moles/Vol] 4.3 mmol/L Normal 3.7-5.3 [facility] Comment on above: Performed By: #### R REEL REPAIRER #### [address] [address] Slate Trimmer: Ky Fraser MD Sodium [Moles/Vol] 140 mmol/L Normal 135-144 [facility] Comment on above: Performed By: #### R REEL REPAIRER #### [address] [address] Slate Trimmer: Ky Fraser MD Urea nitrogen [Mass/Vol] 29 mg/dL High 8-23 [facility] Comment on above: Performed By: #### R REEL REPAIRER #### [address] [address] Slate Trimmer: Ky Fraser MD BUN/CRE Ratio NOT REPORTED Normal 9-20 [facility] Comment on above: Performed By: #### R REEL REPAIRER #### [address] [address] Slate Trimmer: Ky Fraser MD Staging: NOT REPORTED Normal [facility] Comment on above: Performed By: #### R REEL REPAIRER #### [address] [address] Slate Trimmer: Ky Fraser MD CBCon 02-14-2020 Erythrocyte distribution width (RBC) [Ratio] 16.5 % High 11.8-14.4 [facility] Comment on above: Performed By: #### C BC, PTT #### [facility] [address] [place] [address] Slate Trimmer: Ky Fraser MD Hematocrit (Bld) [Volume fraction] 30.5 % Low 36.3-47.1 [facility] Comment on above: Performed By: #### C BC, PTT #### [facility] [employer] [address] [place] [address] Slate Trimmer: Ky Fraser MD Hemoglobin (Bld) [Mass/Vol] 8.5 g/dL Low 11.9-15.1 [facility] Comment on above: Performed By: #### C BC, PTT #### [facility] [employer] [address] [place] [address] Slate Trimmer: Ky Fraser MD MCH (RBC) [Entitic mass] 24.4 pg Low 25.2-33.5 [facility] Comment on above: Performed By: #### C BC, PTT #### [facility] [employer] [address] [place] [address] Slate Trimmer: Ky Fraser MD MCHC (RBC) [Mass/Vol] 27.9 g/dL Low 28.4-34.8 [facility] Comment on above: Performed By: #### C BC, PTT #### [facility] [address] [place] [address] Slate Trimmer: Ky Fraser MD MCV (RBC) [Entitic vol] 87.6 fL Normal 82.6-102.9 [facility] Comment on above: Performed By: #### C BC, PTT #### [facility] [employer] [address] [place] [address] Slate Trimmer: Ky Fraser MD NRBC Automated 0.0 per 100 WBC Normal 0.0 [facility] Comment on above: Performed By: #### C BC, PTT #### [facility] [employer] [facility] [place] [address] Slate Trimmer: Ky Fraser MD Platelet mean volume (Bld) [Entitic vol] 11.8 fL Normal 8.1-13.5 [facility] Comment on above: Performed By: #### C BC, PTT #### [facility] [place] [address] Slate Trimmer: Ky Fraser MD Platelets (Bld) [#/Vol] 222 10*3/uL Normal 138-453 [facility] Comment on above: Performed By: #### C BC, PTT #### [facility] [employer] [address] [place] [address] Slate Trimmer: Ky Fraser MD RBC (Bld) [#/Vol] 3.48 10*6/uL Low 3.95-5.11 [facility] Comment on above: Performed By: #### C BC, PTT #### [facility] [employer] [facility] [place] [address] Slate Trimmer: Ky Fraser MD WBC (Bld) [#/Vol] 10.2 10*3/uL Normal 3.5-11.3 [facility] Comment on above: Performed By: #### C BC, PTT #### [facility] [employer] [address] [place] [address] Slate Trimmer: Ky Fraser MD Erythrocyte distribution width (RBC) [Ratio] 16.5 % High 11.8 - 14.4 % [place] Hematocrit (Bld) [Volume fraction] 30.5 % Low 36.3 - 47.1 % [place] Hemoglobin (Bld) [Mass/Vol] 8.5 g/dL Low 11.9 - 15.1 g/dL [place] Interpretation and review of laboratory results Abnormal [place] MCH (RBC) [Entitic mass] 24.4 pg Low 25.2 - 33.5 pg [place] MCHC (RBC) [Mass/Vol] 27.9 g/dL Low 28.4 - 34.8 g/dL [place] MCV (RBC) [Entitic vol] 87.6 fL 82.6 - 102.9 fL [place] Platelet mean volume (Bld) [Entitic vol] 11.8 fL 8.1 - 13.5 fL [place] Platelets (Bld) [#/Vol] 222 10*3/uL [place] RBC (Bld) [#/Vol] 3.48 10*6/uL Low 3.95 - 5.1 1 m/uL [place] WBC (Bld) [#/Vol] 10.2 10*3/uL [place] WBC (Bld) [#/Vol] 0.0 10*3/uL 0.0 per 100 WBC M [place] Erythrocyte distribution width (RBC) [Ratio] 16.8 % High 11.8-14.4 [facility] Comment on above: Performed By: #### R REEL REPAIRER #### [address] [phone] Slate Trimmer: Ky Fraser MD Hematocrit (Bld) [Volume fraction] 31.9 % Low 36.3-47.1 [facility] Comment on above: Performed By: #### R REEL REPAIRER #### [facility] [employer] [address] [place] [address] [phone] Slate Trimmer: Ky Fraser MD Hemoglobin (Bld) [Mass/Vol] 8.8 g/dL Low 11.9-15.1 [facility] Comment on above: Performed By: #### R REEL REPAIRER #### [facility] [employer] [address] [place] [address] [phone] Slate Trimmer: Ky Fraser MD MCH (RBC) [Entitic mass] 24.6 pg Low 25.2-33.5 [facility] Comment on above: Performed By: #### R REEL REPAIRER #### [address] [address] Slate Trimmer: Ky Fraser MD MCHC (RBC) [Mass/Vol] 27.6 g/dL Low 28.4-34.8 [facility] Comment on above: Performed By: #### R REEL REPAIRER #### [place] [address] Slate Trimmer: Ky Fraser MD MCV (RBC) [Entitic vol] 89.1 fL Normal 82.6-102.9 [facility] Comment on above: Performed By: #### R REEL REPAIRER #### [place] [address] Slate Trimmer: Ky Fraser MD NRBC Automated 0.0 per 100 WBC Normal 0.0 [facility] Comment on above: Performed By: #### R REEL REPAIRER #### [address] [address] Slate Trimmer: Ky Fraser MD Platelet mean volume (Bld) [Entitic vol] 11.5 fL Normal 8.1-13.5 [facility] Comment on above: Performed By: #### R REEL REPAIRER #### [place] [address] Slate Trimmer: Ky Fraser MD Platelets (Bld) [#/Vol] 253 10*3/uL Normal 138-453 [facility] Comment on above: Performed By: #### R REEL REPAIRER #### [address] [address] Slate Trimmer: Ky Fraser MD RBC (Bld) [#/Vol] 3.58 10*6/uL Low 3.95-5.11 [facility] Comment on above: Performed By: #### R REEL REPAIRER #### [facility] [address] [place], [place] [phone] Slate Trimmer: Ky Fraser MD WBC (Bld) [#/Vol] 10.9 10*3/uL Normal 3.5-11.3 [facility] Comment on above: Performed By: #### R REEL REPAIRER #### [facility] [address] [place], [place] [phone] Slate Trimmer: Ky Fraser MD Erythrocyte distribution width (RBC) [Ratio] 16.8 % High 11.8 - 14.4 % [place] Hematocrit (Bld) [Volume fraction] 31.9 % Low 36.3 - 47.1 % [place] Hemoglobin (Bld) [Mass/Vol] 8.8 g/dL Low 11.9 - 15.1 g/dL [place] Interpretation and review of laboratory results Abnormal [place] MCH (RBC) [Entitic mass] 24.6 pg Low 25.2 - 33.5 pg [place] MCHC (RBC) [Mass/Vol] 27.6 g/dL Low 28.4 - 34.8 g/dL [place] MCV (RBC) [Entitic vol] 89.1 fL 82.6 - 102.9 fL [place] Platelet mean volume (Bld) [Entitic vol] 11.5 fL 8.1 - 13.5 fL [place] Platelets (Bld) [#/Vol] 253 10*3/uL [place] RBC (Bld) [#/Vol] 3.58 10*6/uL Low 3.95 - 5.1 1 m/uL [place] WBC (Bld) [#/Vol] 0.0 10*3/uL 0.0 per 100 WBC M [place] WBC (Bld) [#/Vol] 10.9 10*3/uL [place] CBC auto differentialon 10-0 6 Basophils (Bld) [#/Vol] 0.00 10*3/uL [place] Basophils/100 WBC (Bld) 0 % 0 - 2 % [place] Differential Type NOT REPORTED [place] Eosinophils (Bld) [#/Vol] 0.00 10*3/uL [place] Eosinophils/100 WBC (Bld) 0 % Low 1 - 4 % [place] Erythrocyte distribution width (RBC) [Ratio] 16.5 % High 11.8 - 14.4 % [place] Hematocrit (Bld) [Volume fraction] 31.5 % Low 36.3 - 47.1 % [place] Hemoglobin (Bld) [Mass/Vol] 8.6 g/dL Low 11.9 - 15.1 g/dL [place] Immature granulocytes (Bld) [#/Vol] 0 % 0 [place] Immature granulocytes (Bld) [#/Vol] 0.00 10*3/uL [place] Interpretation and review of laboratory results Abnormal [place] Lymphocytes (Bld) [#/Vol] 0.91 10*3/uL Low [place] Lymphocytes/100 WBC (Bld) 9 % Low 24 - 44 % [place] MCH (RBC) [Entitic mass] 24.7 pg Low 25.2 - 33.5 pg [place] MCHC (RBC) [Mass/Vol] 27.3 g/dL Low 28.4 - 34.8 g/dL [place] MCV (RBC) [Entitic vol] 90.5 fL 82.6 - 102.9 fL [place] Monocytes (Bld) [#/Vol] 0.20 10*3/uL [place] Monocytes/100 WBC (Bld) 2 % 1 - 7 % [place] Morphology Darryn (Bld) [Interp] ANISOCYTOSIS PRESENT [place] Platelet mean volume (Bld) [Entitic vol] 11.4 fL 8.1 - 13.5 fL [place] Platelets (Bld) [#/Vol] NOT REPORTED [place] Platelets (Bld) [#/Vol] 242 10*3/uL [place] RBC (Bld) [#/Vol] 3.48 10*6/uL Low 3.95 - 5.1 1 m/uL [place] RBC morphology finding Nom (Bld) NOT REPORTED [place] Segmented neutrophils/100 WBC (Bld) 89 % High 36 - 66 % [place] Segs Absolute 8.99 [place] WBC (Bld) [#/Vol] 0.0 10*3/uL 0.0 per 100 WBC M [place] WBC (Bld) [#/Vol] 10.1 10*3/uL [place] WBC Morphology NOT REPORTED [place], [place] CBC with Diffon 02-14-2020 Abs. Basophil 0.00 k/uL Normal 0.0-0.2 [facility] Comment on above: Performed By: #### B MP, ELIZABETH, MG, CDP, IOCAL #### [facility] [employer] [address] [place] [phone] Slate Trimmer: Ky Fraser MD Abs.Imm.Granulocyte 0.00 k/uL Normal 0.00-0.30 [facility] Comment on above: Performed By: #### B MP, ELIZABETH, MG, CDP, IOCAL #### [employer] [address] [place] [address] Slate Trimmer: Ky Fraser MD Abs.Neutrophil (Seg) 8.99 k/uL High 1.8-7.[address] [facility] Comment on above: Performed By: #### B MP, ELIZABETH, MG, CDP, IOCAL #### [employer] [address] [place] [address] Slate Trimmer: Ky Fraser MD Basophils/100 WBC (Bld) 0 % Normal 0-2 [facility] Comment on above: Performed By: #### B MP, ELIZABETH, MG, CDP, IOCAL #### [facility] [address] [place] [address] Slate Trimmer: Ky Fraser MD Eosinophils (Bld) [#/Vol] 0.00 10*3/uL Normal 0.0-0.4 [facility] Comment on above: Performed By: #### B MP, ELIZABETH, MG, CDP, IOCAL #### [address] [address] Slate Trimmer: Ky Fraser MD Eosinophils/100 WBC (Bld) 0 % Low 1-4 [facility] Comment on above: Performed By: #### B MP, ELIZABETH, MG, CDP, IOCAL #### [place] [address] Slate Trimmer: Ky Fraser MD Immature granulocytes/100 WBC (Bld) 0 % Normal 0 [facility] Comment on above: Performed By: #### B MP, ELIZABETH, MG, CDP, IOCAL #### [place] [address] Slate Trimmer: Ky Fraser MD Lymphocytes (Bld) [#/Vol] 0.91 10*3/uL Low 1.0-4.8 [facility] Comment on above: Performed By: #### B MP, ELIZABETH, MG, CDP, IOCAL #### [place] [address] Slate Trimmer: Ky Fraser MD Lymphocytes/100 WBC (Bld) 9 % Low 24-44 [facility] Comment on above: Performed By: #### B MP, ELIZABETH, MG, CDP, IOCAL #### [facility] [employer] [address] [place] [address] Slate Trimmer: Ky Fraser MD Monocytes (Bld) [#/Vol] 0.20 10*3/uL Normal 0.1-0.8 [facility] Comment on above: Performed By: #### B MP, ELIZABETH, MG, CDP, IOCAL #### [address] [place] [address] Slate Trimmer: Ky Fraser MD Monocytes/100 WBC (Bld) 2 % Normal 1-7 [facility] Comment on above: Performed By: #### B MP, ELIZABETH, MG, CDP, IOCAL #### [address] [address] Slate Trimmer: Ky Fraser MD Morphology Darryn (Bld) [Interp] ANISOCYTOSIS PRESENT Normal [facility] Comment on above: Performed By: #### B MP, ELIZABETH, MG, CDP, IOCAL #### [address] [address] Slate Trimmer: Ky Fraser MD Neutrophil (Seg) 89 % High 36-66 [facility] Comment on above: Performed By: #### B MP, ELIZABETH, MG, CDP, IOCAL #### [address] [address] Slate Trimmer: Ky Fraser MD Erythrocyte distribution width (RBC) [Ratio] 16.5 % High 11.8-14.4 [facility] Comment on above: Performed By: #### B MP, ELIZABETH, MG, CDP, IOCAL #### [address] [address] Slate Trimmer: Ky Fraser MD Hematocrit (Bld) [Volume fraction] 31.5 % Low 36.3-47.1 [facility] Comment on above: Performed By: #### B MP, ELIZABETH, MG, CDP, IOCAL #### [facility] [employer] [address] [place] [address] Slate Trimmer: Ky Fraser MD Hemoglobin (Bld) [Mass/Vol] 8.6 g/dL Low 11.9-15.1 [facility] Comment on above: Performed By: #### B MP, ELIZABETH, MG, CDP, IOCAL #### [address] [address] Slate Trimmer: Ky Fraser MD MCH (RBC) [Entitic mass] 24.7 pg Low 25.2-33.5 [facility] Comment on above: Performed By: #### B MP, ELIZABETH, MG, CDP, IOCAL #### [address] [address] Slate Trimmer: Ky Fraser MD MCHC (RBC) [Mass/Vol] 27.3 g/dL Low 28.4-34.8 [facility] Comment on above: Performed By: #### B MP, ELIZABETH, MG, CDP, IOCAL #### [place] [address] Slate Trimmer: Ky Fraser MD MCV (RBC) [Entitic vol] 90.5 fL Normal 82.6-102.9 [facility] Comment on above: Performed By: #### B MP, ELIZABETH, MG, CDP, IOCAL #### [address] [address] Slate Trimmer: Ky Fraser MD NRBC Automated 0.0 per 100 WBC Normal 0.0 [facility] Comment on above: Performed By: #### B MP, ELIZABETH, MG, CDP, IOCAL #### [place] [address] Slate Trimmer: Ky Fraser MD Platelet mean volume (Bld) [Entitic vol] 11.4 fL Normal 8.1-13.5 [facility] Comment on above: Performed By: #### B MP, ELIZABETH, MG, CDP, IOCAL #### [place] [address] Slate Trimmer: Ky Fraser MD Platelets (Bld) [#/Vol] 242 10*3/uL Normal 138-453 [facility] Comment on above: Performed By: #### B MP, ELIZABETH, MG, CDP, IOCAL #### [facility] [address] [place] [address] Slate Trimmer: Ky Fraser MD RBC (Bld) [#/Vol] 3.48 10*6/uL Low 3.95-5.11 [facility] Comment on above: Performed By: #### B MP, ELIZABETH, MG, CDP, IOCAL #### [facility] [address] [place] [address] Slate Trimmer: Ky Fraser MD WBC (Bld) [#/Vol] 10.1 10*3/uL Normal 3.5-11.3 [facility] Comment on above: Performed By: #### B MP, ELIZABETH, MG, CDP, IOCAL #### [address] [address] Slate Trimmer: Ky Fraser MD Auto Diff Performed NOT REPORTED Normal [facility] Comment on above: Performed By: #### B MP, ELIZABETH, MG, CDP, IOCAL #### [address] [address] Slate Trimmer: Ky Fraser MD Platelet Estimate NOT REPORTED Normal [facility] Comment on above: Performed By: #### B MP, ELIZABETH, MG, CDP, IOCAL #### [facility] [employer] [address] [place] [address] Slate Trimmer: Ky Fraser MD RBC morphology finding Nom (Bld) NOT REPORTED Normal [facility] Comment on above: Performed By: #### B MP, ELIZABETH, MG, CDP, IOCAL #### [facility] [employer] [address] [place] [address] Slate Trimmer: Ky Fraser MD WBC Morphology NOT REPORTED Normal [facility] Comment on above: Performed By: #### B MP, ELIZABETH, MG, CDP, IOCAL #### [facility] [address] [place] [address], [place] [address] Slate Trimmer: Ky Fraser MD Calcium, Ionicon 02-14-2020 Calcium [Moles/Vol] 1.19 mmol/L Normal 1.13-1.[address] [facility] Comment on above: Performed By: #### R REEL REPAIRER #### [facility] [address] [place] [address] Slate Trimmer: Ky Fraser MD EKG 12 Leadon 02-14-2020 Atrial Rate 60 BPM [place] P Ada 66 degrees [place] P-R Interval 180 ms [facility], [place] Q-T Interval 456 ms [place] QRS Duration 176 ms [place] QTc Calculation (Bazett) 456 ms [place] R Ada 94 degrees [facility], [place] T Ada -102 degrees [place] Urea nitrogen [Mass/Vol] Atrial-paced rhythm Right bundle branch block Cannot rule out Inferior infarct , age undetermined T wave abnormality, consider lateral ischemia Abnormal ECG No previous ECGs available [place] Ventricular Rate 60 BPM [place] Cristofer, Mhpn Incoming Ekg Results From [facility] - 02/14/2020 11:12 AM EDT Atrial-paced rhythm Right bundle branch block Cannot rule out Inferior infarct , age undetermined T wave abnormality, consider lateral ischemia Abnormal ECG No previous ECGs available [place] HEMOGLOBIN AND HEMATOCRIT, B LOODon 02-14-2020 Hematocrit (Bld) [Volume fraction] 30.3 % Low 36.3 - 47.1 % [place] Hemoglobin (Bld) [Mass/Vol] 8.7 g/dL Low 11.9 - 15.1 g/dL [place] Interpretation and review of laboratory results Abnormal [place] Hgb/Hcton 02-14-2020 Hematocrit (Bld) [Volume fraction] 30.3 % Low 36.3-47.1 [facility] Comment on above: Performed By: #### R REEL REPAIRER #### [facility] [address] [place] [address] [phone] Slate Trimmer: Ky Fraser MD Hemoglobin (Bld) [Mass/Vol] 8.7 g/dL Low 11.9-15.1 [facility] Comment on above: Performed By: #### R REEL REPAIRER #### [facility] [employer] [address] [place] [phone] Slate Trimmer: Ky Fraser MD Ionized Calciumon 02-14-2020 Calcium [Mass/Vol] 1.19 mmol/L 1.13 - 1. 33 mmol/L [place] MRSA DNA Probe, Nasalon MRSA, DNA, Nasal NEGATIVE: MRSA DNA not detected by nucleic acid amplification. NEGATIVE: MRSA DNA not detected by nucleic acid amplificati [place] Comment on above: Results should be used as an adjunct to nosocomial control efforts to identify patients needing enhanced precautions. The test is not intended to identify patients with staphylococcal infections. Results should not be used to guide or monitor treatment for MRSA infections. Specimen Description .NASAL SWAB [place] MRSA, DNA, Nasalon 0 MRSA, DNA, Nasal NEGATIVE: MRSA DNA not detected by nucleic acid amplification. Normal NMRSAA [facility] Comment on above: Result Comment: Results should be used as an adjunct to nosocomial control efforts to identify patients needing enhanced precautions. The test is not intended to identify patients with staphylococcal infections. Results should not be used to guide or monitor treatment for MRSA infections. Performed By: #### C BC, PTT #### [facility] [address] [place] [phone] Slate Trimmer: Ky Fraser MD Specimen Description .NASAL SWAB Normal [facility] Comment on above: Performed By: #### C BC, PTT #### [facility] [address] [place] [address] Slate Trimmer: Ky Fraser MD Magnesiumon 02-14-2020 Magnesium [Mass/Vol] 2.0 mg/dL Normal 1.6-2.[address] [facility] Comment on above: Performed By: #### B MP, ELIZABETH, MG, CDP, IOCAL #### [address] [address] Slate Trimmer: Ky Fraser MD Magnesium [Mass/Vol] 2.0 mg/dL 1.6 - 2.6 mg/dL [place], [place] POC Glucose Fingerstickon Glucose [Mass/Vol] 168 mg/dL High 65 - 105 mg/dL [place], [place] Interpretation and review of laboratory results Abnormal [place] Phosphoruson 02-14-2020 Phosphate [Mass/Vol] 3.8 mg/dL 2.6 - 4.5 mg/dL [place] Phosphorus, Inorg.on 020 Phosphorus, Inorg. 3.8 mg/dL Normal 2.6-4.5 [facility] Comment on above: Performed By: #### B MP, ELIZABETH, MG, CDP, IOCAL #### [address] [address] Slate Trimmer: Ky Fraser MD Resp Viral Panelon 0 Adenovirus Not detected Normal [facility] Comment on above: Performed By: #### R REEL REPAIRER #### [address] [address] Slate Trimmer: MD Dat Contedet.parapertussis Not detected Normal [facility] Comment on above: Performed By: #### R REEL REPAIRER #### [address] [address] Slate Trimmer: Ky Fraser MD Bordetella pertussis Not detected Normal [facility] Comment on above: Performed By: #### R REEL REPAIRER #### [address] [address] Slate Trimmer: Ky Fraser MD Chlamyd.pneumoniae Not detected Normal [facility] Comment on above: Performed By: #### R REEL REPAIRER #### [address] [place] [address] Slate Trimmer: Ky Fraser MD Coronavirus 229E Not detected Normal [facility] Comment on above: Result Comment: Moshe noviruses detected by this panel are those associated with the clinical common cold. This test will not detect 9025-WDQF-VIL-2 or other novel coronaviruses. Performed By: #### R REEL REPAIRER #### [address] [address] Slate Trimmer: Ky Fraser MD Coronavirus HKU1 Not detected Normal [facility] Comment on above: Result Comment: Moshe noviruses detected by this panel are those associated with the clinical common cold. This test will not detect 8591-BOZU-UWP-2 or other novel coronaviruses. Performed By: #### R REEL REPAIRER #### [address] [address] Slate Trimmer: Ky Fraser MD Coronavirus NL63 Not detected Normal [facility] Comment on above: Result Comment: Moshe noviruses detected by this panel are those associated with the clinical common cold. This test will not detect [id number]-2 or other novel coronaviruses. Performed By: #### R REEL REPAIRER #### [address] [address] Slate Trimmer: Ky Fraser MD Coronavirus OC43 Not detected Normal [facility] Comment on above: Result Comment: Moshe noviruses detected by this panel are those associated with the clinical common cold. This test will not detect 0639-DLFU-ICZ-2 or other novel coronaviruses. Performed By: #### R REEL REPAIRER #### [facility] [employer] [address] [place] [address] Slate Trimmer: Ky Fraser MD Human Metapneumo Not detected Normal [facility] Comment on above: Performed By: #### R REEL REPAIRER #### [address] [address] Slate Trimmer: Ky Fraser MD Influenza A Not detected Normal [facility] Comment on above: Performed By: #### R REEL REPAIRER #### [facility] [employer] [address] [place] [address] Slate Trimmer: Ky Fraser MD Influenza B Not detected Normal [facility] Comment on above: Performed By: #### R REEL REPAIRER #### [facility] [employer] [address] [place] [address] Slate Trimmer: Ky Fraser MD Mycoplas.pneumoniae Not detected Normal [facility] Comment on above: Result Comment: Perf ormed by multiplexed nucleic acid assay. Performed By: #### R REEL REPAIRER #### [address] [address] Slate Trimmer: Ky Fraser MD Parainfluenza 1 Not detected Normal [facility] Comment on above: Performed By: #### R REEL REPAIRER #### [facility] [employer] [address] [place] [address] Slate Trimmer: yK Fraser MD Parainfluenza 2 Not detected Normal [facility] Comment on above: Performed By: #### R REEL REPAIRER #### [facility] [employer] [address] [place] [address] Slate Trimmer: Ky Fraser MD Parainfluenza 3 Not detected Normal [facility] Comment on above: Performed By: #### R REEL REPAIRER #### [facility] [employer] [address] [place] [address] Slate Trimmer: Ky Fraser MD Parainfluenza 4 Not detected Normal [facility] Comment on above: Performed By: #### R REEL REPAIRER #### [facility] [employer] [address] [place] [address] Slate Trimmer: Ky Fraser MD Resp Syncytial Virus Not detected [facility] Comment on above: Performed By: #### R REEL REPAIRER #### [address] [address] Slate Trimmer: Ky Fraser MD Rhino/Enterovirus Not detected Normal [facility] Comment on above: Performed By: #### R REEL REPAIRER #### [address] [address] Slate Trimmer: Ky Fraser MD Influenza A H1 NOT REPORTED Normal [facility] Comment on above: Performed By: #### R REEL REPAIRER #### [address] [address] Slate Trimmer: Ky Fraser MD Influenza A H1-2009 NOT REPORTED Normal [facility] Comment on above: Performed By: #### R REEL REPAIRER #### [address] [address] Slate Trimmer: Ky Fraser MD Influenza A H3 NOT REPORTED Normal [facility] Comment on above: Performed By: #### R REEL REPAIRER #### [address] [address] Slate Trimmer: Ky Fraser MD Source: .NASOPHARYNGEAL SWAB Normal [facility] Comment on above: Performed By: #### R REEL REPAIRER #### [address] [address] Slate Trimmer: Ky Fraser MD Respiratory Virus PCR Panelo n 02-14-2020 Adenovirus PCR Not Detected Not Detected [place], [place] B Pertussis by PCR Not Detected Not Detected [place], [place] Bordetella Parapertussis Not Detected Not Detected [place] Chlamydia pneumoniae By PCR Not Detected Not Detected [place] Coronavirus 229E PCR Not Detected Not Detected [place] Comment on above: Coronoviruses detect ed by this panel are those associated with the clinical common cold. This test will not detect 8332-EQTQ-GIL-2 or other novel coronaviruses. Coronavirus HKU1 PCR Not Detected Not Detected [place] Comment on above: Coronoviruses detect ed by this panel are those associated with the clinical common cold. This test will not detect 3467-ANVS-XHR-2 or other novel coronaviruses. Coronavirus NL63 PCR Not Detected Not Detected [place] Comment on above: Coronoviruses detect ed by this panel are those associated with the clinical common cold. This test will not detect 2507-HJCG-XPY-2 or other novel coronaviruses. Coronavirus OC43 PCR Not Detected Not Detected [place] Comment on above: Coronoviruses detect ed by this panel are those associated with the clinical common cold. This test will not detect 6383-NSWI-OTN-2 or other novel coronaviruses. Human Metapneumovirus PCR Not Detected Not Detected [place] Influenza A by PCR Not Detected Not Detected [place] Influenza A H1 (2009) PCR NOT REPORTED Not Detected [place] Influenza A H1 PCR NOT REPORTED Not Detected [place] Influenza A H3 PCR NOT REPORTED Not Detected [place] Influenza B by PCR Not Detected Not Detected [place] Mycoplasma pneumo by PCR Not Detected Not Detected [place] Comment on above: Performed by multipl exed nucleic acid assay. Parainfluenza 1 PCR Not Detected Not Detected [place] Parainfluenza 2 PCR Not Detected Not Detected [place] Parainfluenza 3 PCR Not Detected Not Detected [place] Parainfluenza 4 PCR Not Detected Not Detected [place] Resp Syncytial Virus PCR Not Detected Not Detected [place] Rhino/Enterovirus PCR Not Detected Not Detected [place] Specimen Description .NASOPHARYNGEAL SWAB [place] Troponinon 02-14-2020 Troponin, High Sens 91 ng/L Critically high 0-14 [facility] Comment on above: Result Comment: High Sensitivity Troponin values cannot be compared with other Troponin methodologies. Patients with high levels of Biotin oral intake (i.e >5mg/day) may have falsely decreased Troponin levels. Samples collected within 8 hours of biotin intake may require additional information for diagnosis. Previous Alert Value Reported Performed By: #### B MP, ELIZABETH, MG, CDP, IOCAL #### [facility] [address] [place] [address] Slate Trimmer: Ky Fraser MD Troponin Interp. NOT REPORTED Normal [facility] Comment on above: Performed By: #### B MP, ELIZABETH, MG, CDP, IOCAL #### [facility] [address] [place] [address] Slate Trimmer: Ky Fraser MD Troponin T NOT REPORTED Normal <0.03 [facility] Comment on above: Performed By: #### B MP, ELIZABETH, MG, CDP, IOCAL #### [facility] [address] [place] [address] Slate Trimmer: Ky Fraser MD Interpretation and review of laboratory results Abnormal [place] Troponin I.cardiac [Mass/Vol] NOT REPORTED [place] Troponin T.cardiac [Mass/Vol] NOT REPORTED <0.03 ng/mL [place] Troponin, High Sensitivity 91 ng/L Critically high 0 - 14 ng/L [place] Comment on above: High Sensitivity Troponin values cannot be compared with other Troponin methodologies. Patients with high levels of Biotin oral intake (i.e >5mg/day) may have falsely decreased Troponin levels. Samples collected within 8 hours of biotin intake may require additional information for diagnosis. Previous Alert Value Reported Troponin, High Sens 91 ng/L Critically high 0-14 [facility] Comment on above: Result Comment: High Sensitivity Troponin values cannot be compared with other Troponin methodologies. Patients with high levels of Biotin oral intake (i.e >5mg/day) may have falsely decreased Troponin levels. Samples collected within 8 hours of biotin intake may require additional information for diagnosis. Performed By: #### R REEL REPAIRER #### [facility] [address] [place] [address] Slate Trimmer: Ky Fraser MD Troponin Interp. NOT REPORTED Normal [facility] Comment on above: Performed By: #### R REEL REPAIRER #### [facility] [employer] [address] [place] [address] Slate Trimmer: Ky Fraser MD Troponin T NOT REPORTED Normal <0.03 [facility] Comment on above: Performed By: #### R REEL REPAIRER #### [facility] [address] [place] [address] Slate Trimmer: Ky Fraser MD Interpretation and review of laboratory results Abnormal [place] Troponin I.cardiac [Mass/Vol] NOT REPORTED [place] Troponin T.cardiac [Mass/Vol] NOT REPORTED <0.03 ng/mL [place] Troponin, High Sensitivity 91 ng/L Critically high 0 - 14 ng/L [place] Comment on above: High Sensitivity Troponin values cannot be compared with other Troponin methodologies. Patients with high levels of Biotin oral intake (i.e >5mg/day) may have falsely decreased Troponin levels. Samples collected within 8 hours of biotin intake may require additional information for diagnosis. Venous Blood Gaseson 020 Body Temp. 37.0 Normal [facility] Comment on above: Performed By: #### R REEL REPAIRER #### [facility] [address] [place] [address] Slate Trimmer: Ky Fraser MD Carboxy Hgb 1.7 % Normal 0-5 [facility] Comment on above: Result Comment: Reference Range: Non-Smokers 0-2% Average Smoker 2-4% Heavy Smoker <10% Performed By: #### R REEL REPAIRER #### [facility] [address] [place] [address] Slate Trimmer: Ky Fraser MD FIO2 INFORMATION NOT PROVIDED Normal [facility] Comment on above: Performed By: #### R REEL REPAIRER #### [facility] [address] [place] [address] Slate Trimmer: Ky Fraser MD HCO3 (Bld) [Moles/Vol] 30.8 mmol/L High 24-30 [facility] Comment on above: Performed By: #### R REEL REPAIRER #### [address] [address] Slate Trimmer: Ky Fraser MD Oxygen (Bld) [Partial pressure] 128.0 mm[Hg] High 30-50 [facility] Comment on above: Performed By: #### R REEL REPAIRER #### [address] [address] Slate Trimmer: Ky Fraser MD Oxygen saturation in Blood 98.7 % High 60.0-85.0 [facility] Comment on above: Performed By: #### R REEL REPAIRER #### [address] [address] Slate Trimmer: Ky Fraser MD pCO2 61.8 High 39-55 [facility] Comment on above: Performed By: #### R REEL REPAIRER #### [address] [address] Slate Trimmer: Ky Fraser MD pH (Bld) 7.318 [pH] Low 7.320-7.420 [facility] Comment on above: Performed By: #### R REEL REPAIRER #### [address] [address] Slate Trimmer: Ky Fraser MD Positive Base Excess 4.2 mmol/L High 0.0-2.[address] [facility] Comment on above: Performed By: #### R REEL REPAIRER #### [address] [address] Slate Trimmer: Ky Fraser MD Lluvia Test NOT REPORTED Normal [facility] Comment on above: Performed By: #### R REEL REPAIRER #### [address] [id number] Slate Trimmer: Ky Fraser MD Methemoglobin NOT REPORTED Normal 0.0-1.5 [facility] Comment on above: Performed By: #### R REEL REPAIRER #### [address] [address] Slate Trimmer: Ky Fraser MD Mode NOT REPORTED Normal [facility] Comment on above: Performed By: #### R REEL REPAIRER #### [address] [address] Slate Trimmer: Ky Fraser MD Negative Base Excess NOT REPORTED Normal 0.0-2.0 [facility] Comment on above: Performed By: #### R REEL REPAIRER #### [address] [address] Slate Trimmer: Ky Fraser MD Notification Time NOT REPORTED Normal [facility] Comment on above: Performed By: #### R REEL REPAIRER #### [address] [address] Slate Trimmer: Ky Fraser MD Notification: NOT REPORTED Normal [facility] Comment on above: Performed By: #### R REEL REPAIRER #### [address] [address] Slate Trimmer: Ky Fraser MD O2 Device/Flow/% NOT REPORTED Normal [facility] Comment on above: Performed By: #### R REEL REPAIRER #### [address] [address] Slate Trimmer: Ky Fraser MD Oxyhemoglobin NOT REPORTED Normal 95.0-98.0 [facility] Comment on above: Performed By: #### R REEL REPAIRER #### [address] [address] Slate Trimmer: Ky Fraser MD Pco2 Adj'd for Temp. NOT REPORTED Normal 39-55 [facility] Comment on above: Performed By: #### R REEL REPAIRER #### [address] [address] Slate Trimmer: Ky Fraser MD PEEP/CPAP NOT REPORTED Normal [facility] Comment on above: Performed By: #### R REEL REPAIRER #### [address] [address] Slate Trimmer: Ky Fraser MD pH Adjst'd for Temp. NOT REPORTED Normal 7.320-7.420 [facility] Comment on above: Performed By: #### R REEL REPAIRER #### [address] [address] Slate Trimmer: Ky Fraser MD pO2 Adj'd for Temp. NOT REPORTED Normal 30-50 [facility] Comment on above: Performed By: #### R REEL REPAIRER #### [address] [address] Slate Trimmer: Ky Fraser MD PSV NOT REPORTED Normal [facility] Comment on above: Performed By: #### R REEL REPAIRER #### [address] [address] Slate Trimmer: Ky Fraser MD Pt. Position NOT REPORTED Normal [facility] Comment on above: Performed By: #### R REEL REPAIRER #### [address] [address] Slate Trimmer: Ky Fraser MD Respiratory Rate NOT REPORTED Normal [facility] Comment on above: Performed By: #### R REEL REPAIRER #### [address] [address] Slate Trimmer: Ky Fraser MD Set Rate NOT REPORTED Normal [facility] Comment on above: Performed By: #### R REEL REPAIRER #### [address] [address] Slate Trimmer: Ky Fraser MD Site Drawn NOT REPORTED Normal [facility] Comment on above: Performed By: #### R REEL REPAIRER #### [address] [address] Slate Trimmer: Ky Fraser MD Text for Respiratory NOT REPORTED Normal [facility] Comment on above: Performed By: #### R REEL REPAIRER #### [address] [address] Slate Trimmer: Ky Fraser MD Total Hb NOT REPORTED Normal 12.0-16.0 [facility] Comment on above: Performed By: #### R REEL REPAIRER #### [address] [address] Slate Trimmer: Ky Fraser MD Total Rate NOT REPORTED Normal [facility] Comment on above: Performed By: #### R REEL REPAIRER #### [address] [address] Slate Trimmer: Ky Fraser MD [place] NOT REPORTED Normal [facility] Comment on above: Performed By: #### R REEL REPAIRER #### [address] [address] Slate Trimmer: Ky Fraser MD XR ABDOMEN FOR NG/OG/NE TUBE PLACEMENTon 02-14-2020 XR ABDOMEN FOR NG/OG/NE TUBE PLACEMENT EXAMINATION: ONE SUPINE XRAY VIEW(S) OF THE ABDOMEN 02/14/2020 3:36 am COMPARISON: None. HISTORY: ORDERING SYSTEM PROVIDED HISTORY: Confirmation of course of NG/OG/NE tube and location of tip of tube TECHNOLOGIST PROVIDED HISTORY: Confirmation of course of NG/OG/NE tube and location of tip of tube Portable?->Yes Reason for Exam: portable supine/ verify OG placement Acuity: Acute Type of Exam: Ongoing FINDINGS: Please see the impression IMPRESSION: Enteric tube ends in the mid gastric body. Cardiomegaly with left-sided pleural effusion and bilateral lower lung airspace opacities noted. Multilevel thoracolumbar spondylosis. Interpreted by: Jah Cherry MD Signed by: Jah Cherry MD 02/14/20 Final result Normal [facility] EXAMINATION: ONE SUPINE XRAY VIEW(S) OF THE ABDOMEN 02/14/2020 3:36 am COMPARISON: None. HISTORY: ORDERING SYSTEM PROVIDED HISTORY: Confirmation of course of NG/OG/NE tube and location of tip of tube TECHNOLOGIST PROVIDED HISTORY: Confirmation of course of NG/OG/NE tube and location of tip of tube Portable?->Yes Reason for Exam: portable supine/ verify OG placement Acuity: Acute Type of Exam: Ongoing FINDINGS: Please see the impression [place] [employer], [employer] Incoming Radiant Results From [employer] - 02/14/2020 3:54 AM EDT EXAMINATION: ONE SUPINE XRAY VIEW(S) OF THE ABDOMEN 02/14/2020 3:36 am COMPARISON: None. HISTORY: ORDERING SYSTEM PROVIDED HISTORY: Confirmation of course of NG/OG/NE tube and location of tip of tube TECHNOLOGIST PROVIDED HISTORY: Confirmation of course of NG/OG/NE tube and location of tip of tube Portable?->Yes Reason for Exam: portable supine/ verify OG placement Acuity: Acute Type of Exam: Ongoing FINDINGS: Please see the impression IMPRESSION: Enteric tube ends in the mid gastric body. Cardiomegaly with left-sided pleural effusion and bilateral lower lung airspace opacities noted. Multilevel thoracolumbar spondylosis. [place] Enteric tube ends in the mid gastric body. Cardiomegaly with left-sided pleural effusion and bilateral lower lung airspace opacities noted. Multilevel thoracolumbar spondylosis. [place] XR CHEST PORTABLEon 02-14-20 20 XR CHEST PORTABLE EXAMINATION: ONE XRAY VIEW OF THE CHEST 02/14/2020 3:36 am COMPARISON: Chest portable August 26, 2019. HISTORY: ORDERING SYSTEM PROVIDED HISTORY: shortness of breath TECHNOLOGIST PROVIDED HISTORY: shortness of breath Reason for Exam: portable upright/ sob, intubated hx: COPD Acuity: Acute Type of Exam: Initial FINDINGS: Left-sided cardiac pacemaker electronic ICD device is noted with right atrial and right ventricular leads stable in position. Endotracheal tube is noted in place with the distal tip located 4.0 cm superior to the roberto. Nasogastric tube is noted with distal tip beyond the inferior [id number] coursing below the level of the gastroesophageal junction. The heart is mildly enlarged with otherwise unremarkable configuration. The mediastinal contours are within normal limits. Pulmonary vasculature is again prominent and indistinct. Bilateral lung multifocal ill-defined consolidation is not significantly changed. Left basilar atelectasis plus or minus mild pleural effusion is unchanged. Bones and soft tissues are unremarkable. IMPRESSION: 1. Stable left basilar atelectasis plus or minus mild pleural effusion. 2. Suspected moderate pulmonary interstitial edema with overlying multifocal ill-defined consolidation suggesting alveolar edema. 3. Mild cardiomegaly. Interpreted by: Danial Beck MD Signed by: Danial Beck MD 02/14/20 Final result Normal [facility] EXAMINATION: ONE XRAY VIEW OF THE CHEST 02/14/2020 3:36 am COMPARISON: Chest portable August 26, 2019. HISTORY: ORDERING SYSTEM PROVIDED HISTORY: shortness of breath TECHNOLOGIST PROVIDED HISTORY: shortness of breath Reason for Exam: portable upright/ sob, intubated hx: COPD Acuity: Acute Type of Exam: Initial FINDINGS: Left-sided cardiac pacemaker electronic ICD device is noted with right atrial and right ventricular leads stable in position. Endotracheal tube is noted in place with the distal tip located 4.0 cm superior to the roberto. Nasogastric tube is noted with distal tip beyond the inferior gnkey-sa-gnkf coursing below the level of the gastroesophageal junction. The heart is mildly enlarged with otherwise unremarkable configuration. The mediastinal contours are within normal limits. Pulmonary vasculature is again prominent and indistinct. Bilateral lung multifocal ill-defined consolidation is not significantly changed. Left basilar atelectasis plus or minus mild pleural effusion is unchanged. Bones and soft tissues are unremarkable. [facility] [place], [place] Cristof[employer], [employer] Incoming Radiant Results From [employer] - 02/14/2020 4:45 AM EDT EXAMINATION: ONE XRAY VIEW OF THE CHEST 02/14/2020 3:36 am COMPARISON: Chest portable August 26, 2019. HISTORY: ORDERING SYSTEM PROVIDED HISTORY: shortness of breath TECHNOLOGIST PROVIDED HISTORY: shortness of breath Reason for Exam: portable upright/ sob, intubated hx: COPD Acuity: Acute Type of Exam: Initial FINDINGS: Left-sided cardiac pacemaker electronic ICD device is noted with right atrial and right ventricular leads stable in position. Endotracheal tube is noted in place with the distal tip located 4.0 cm superior to the roberto. Nasogastric tube is noted with distal tip beyond the inferior [id number] coursing below the level of the gastroesophageal junction. The heart is mildly enlarged with otherwise unremarkable configuration. The mediastinal contours are within normal limits. Pulmonary vasculature is again prominent and indistinct. Bilateral lung multifocal ill-defined consolidation is not significantly changed. Left basilar atelectasis plus or minus mild pleural effusion is unchanged. Bones and soft tissues are unremarkable. IMPRESSION: 1. Stable left basilar atelectasis plus or minus mild pleural effusion. 2. Suspected moderate pulmonary interstitial edema with overlying multifocal ill-defined consolidation suggesting alveolar edema. 3. Mild cardiomegaly. [place] 1. Stable left basilar atelectasis plus or minus mild pleural effusion. 2. Suspected moderate pulmonary interstitial edema with overlying multifocal ill-defined consolidation suggesting alveolar edema. 3. Mild cardiomegaly. [place] ANION GAPon 02-03-2020 Anion gap [Moles/Vol] 8.0 mmol/L Normal 8.0-16.0 [facility] Comment on above: Result Comment: ANIO N GAP = Sodium -(Chloride + CO2) Performed By: #### P OCGL #### [facility] [address] [place] [address] Anion Gapon 02-03-2020 Anion gap [Moles/Vol] 8.0 mmol/L 8 - 16 meq/L [place], [place] Comment on above: ANION GAP = Sodium - (Chloride + CO2) Performed at [facility] [address] [place] [address] BASIC METABOL PANELon 2019 Calcium [Mass/Vol] 9.5 mg/dL Normal 8.5-10.5 [facility] Comment on above: Performed By: #### P OCGL #### [facility] [address] [place] [address] Chloride [Moles/Vol] 95 mmol/L Low 98-111 [facility] Comment on above: Performed By: #### P OCGL #### [facility] [address] [place] [address] CO2 [Moles/Vol] 36 mmol/L High 23-33 [facility] Comment on above: Performed By: #### P OCGL #### [facility] [address] [place] [address] Creatinine [Mass/Vol] 1.0 mg/dL Normal 0.4-1.2 [facility] Comment on above: Performed By: #### P OCGL #### [facility] [address] [place] [address] Glucose [Mass/Vol] 108 mg/dL Normal 70-108 [facility] Comment on above: Performed By: #### P OCGL #### [facility] [address] [place] [address] Potassium [Moles/Vol] 4.0 mmol/L Normal 3.5-5.2 [facility] Comment on above: Performed By: #### P OCGL #### [facility] [address] [place] [address] Sodium [Moles/Vol] 139 mmol/L Normal 135-145 [facility] Comment on above: Performed By: #### P OCGL #### [facility] [address] [place] [address] Urea nitrogen [Mass/Vol] 24 mg/dL High 7-22 [facility] Comment on above: Performed By: #### P OCGL #### [address] [address] Basic Metabolic Panel 01-10 Calcium [Mass/Vol] 9.5 mg/dL 8.5 - 10. 5 mg/dL [place] Comment on above: Performed at [facility] [address] [place] [address] Chloride [Moles/Vol] 95 mmol/L Low 98 - 111 meq/L [place] CO2 [Moles/Vol] 36 mmol/L High 23 - 33 meq/L [place] Creatinine [Mass/Vol] 1 mg/dL 0.4 - 1.2 mg/d L [place] Glucose [Mass/Vol] 108 mg/dL 70 - 108 mg/dL [facility], [place] Potassium [Moles/Vol] 4.0 mmol/L 3.5 - 5.2 meq/ L [place] Sodium [Moles/Vol] 139 mmol/L 135 - 145 meq/L [place] Urea nitrogen [Mass/Vol] 24 mg/dL High 7 - 22 mg/dL [place] CBC WITH DIFFERENTIALon 01-10 POIKILOCYTOSIS 1 Normal Absent [facility] Comment on above: Performed By: #### P OCGL #### [address] [address] STOMATOCYTES 1 Normal Absent [facility] Comment on above: Performed By: #### P OCGL #### [address] [address] ABS IMMATURE GRANS (IG) 0.02 thou/mm3 Normal 0.00-0.07 [facility] Comment on above: Performed By: #### P OCGL #### [address] [address] ABS NEUTROPHILS 4.3 thou/mm3 Normal 1.8-7.7 [facility] Comment on above: Performed By: #### P OCGL #### [address] [address] Basophils (Bld) [#/Vol] 0.0 thou/mm3 Normal 0.0-0.1 [facility] Comment on above: Performed By: #### P OCGL #### [address] [address] Basophils/100 WBC (Bld) 0.6 % Normal [facility] Comment on above: Performed By: #### P OCGL #### [address] [address] Eosinophils (Bld) [#/Vol] 0.2 thou/mm3 Normal 0.0-0.4 [facility] Comment on above: Performed By: #### P OCGL #### [address] [address] Eosinophils/100 WBC (Bld) 3.6 % Normal [facility] Comment on above: Performed By: #### P OCGL #### [address] [address] Erythrocyte distribution width (RBC) [Ratio] 17.3 % High 11.5-14.5 [facility] Comment on above: Performed By: #### P OCGL #### [facility] [address] [place] [address] Hematocrit (Bld) [Volume fraction] 36.1 % Low 37.0-47.0 [facility] Comment on above: Performed By: #### P OCGL #### [address] [address] Hemoglobin (Bld) [Mass/Vol] 10.4 gm/dl Low 12.0-16.0 [facility] Comment on above: Performed By: #### P OCGL #### [place] [phone] HYPOCHROMIA PRESENT Normal Absent [facility] Comment on above: Performed By: #### P OCGL #### [place] [phone] IMMATURE GRANS (IG) 0.3 % Normal [facility] Comment on above: Performed By: #### P OCGL #### [address] [address] Lymphocytes (Bld) [#/Vol] 1.4 thou/mm3 Normal 1.0-4.8 [facility] Comment on above: Performed By: #### P OCGL #### [address] [address] Lymphocytes/100 WBC (Bld) 20.1 % Normal [facility] Comment on above: Performed By: #### P OCGL #### [address] [address] MCH (RBC) [Entitic mass] 25.9 pg Low 26.0-33.0 [facility] Comment on above: Performed By: #### P OCGL #### [address] [address] MCHC (RBC) [Mass/Vol] 28.8 gm/dl Low 32.2-35.5 [facility] Comment on above: Performed By: #### P OCGL #### [address] [place] [address] MCV (RBC) [Entitic vol] 90.0 fL Normal 81.0-99.0 [facility] Comment on above: Performed By: #### P OCGL #### [address] [address] Monocytes (Bld) [#/Vol] 0.9 thou/mm3 Normal 0.4-1.3 [facility] Comment on above: Performed By: #### P OCGL #### [address] [address] Monocytes/100 WBC (Bld) 13.0 % Normal [facility] Comment on above: Performed By: #### P OCGL #### [address] [address] Neutrophils/100 WBC (Bld) 62.4 % Normal [facility] Comment on above: Performed By: #### P OCGL #### [address] [address] Nucleated RBC/100 WBC (Bld) [Ratio] 0 /100 wbc Normal [facility] Comment on above: Performed By: #### P OCGL #### [address] [address] Platelet mean volume (Bld) [Entitic vol] 11.5 fL Normal 9.4-12.4 [facility] Comment on above: Performed By: #### P OCGL #### [address] [address] Platelets (Bld) [#/Vol] 174 thou/mm3 Normal 130-400 [facility] Comment on above: Performed By: #### P OCGL #### [address] [address] RBC (Bld) [#/Vol] 4.01 mill/mm3 Low 4.20-5.40 [facility] Comment on above: Performed By: #### P OCGL #### [address] [address] RDW-SD 57.9 fL High 35.0-45.0 [facility] Comment on above: Performed By: #### P OCGL #### [facility] [address] [place] [address] WBC (Bld) [#/Vol] 6.9 thou/mm3 Normal 4.8-10.8 [facility] Comment on above: Performed By: #### P OCGL #### [facility] [address] [place] [address] CBC auto differentialon 01-10 Basophils (Bld) [#/Vol] 0.0 10*3/uL [place] Basophils/100 WBC (Bld) 0.6 % [place] Eosinophils (Bld) [#/Vol] 0.2 10*3/uL [place] Eosinophils/100 WBC (Bld) 3.6 % [place] Erythrocyte distribution width (RBC) [Ratio] 17.3 % High 11.5 - 14.5 % [place] Hematocrit (Bld) [Volume fraction] 36.1 % Low 37 - 47 % [place] Hemoglobin (Bld) [Mass/Vol] 10.4 g/dL Low [place] Hypochromia PRESENT Absent [place] Immature Grans (Abs) 0.02 [place] Immature granulocytes (Bld) [#/Vol] 0.3 % [place] Interpretation and review of laboratory results Abnormal [place] Lymphocytes (Bld) [#/Vol] 1.4 10*3/uL [place] Lymphocytes/100 WBC (Bld) 20.1 % [place] MCH (RBC) [Entitic mass] 25.9 pg Low 26 - 33 pg [place] MCHC (RBC) [Mass/Vol] 28.8 g/dL [place] MCV (RBC) [Entitic vol] 90.0 fL 81 - 99 fL [place] Monocytes (Bld) [#/Vol] 0.9 10*3/uL [place] Monocytes/100 WBC (Bld) 13 % [place] Nucleated RBC/100 WBC (Bld) [Ratio] 0 % /100 wbc [place] Platelet mean volume (Bld) [Entitic vol] 11.5 fL 9.4 - 12.4 fL [place] Platelets (Bld) [#/Vol] 174 10*3/uL [place] Poikilocytes 1+ Absent [place] RBC (Bld) [#/Vol] 4.01 10*6/uL Low [place] RDW-SD 57.9 fL High 35 - 45 fL [place] Segmented neutrophils/100 WBC (Bld) 62.4 % [place] Segs Absolute 4.3 [place], [place] Stomatocytes 1+ Absent [place] Comment on above: Performed at [facility] [address] [place] [address] WBC (Bld) [#/Vol] 6.9 10*3/uL [place] GFR, ESTIMATEDon 02-03-2020 GFR/1.73 sq M.predicted MDRD (S/P/Bld) [Vol rate/Area] 56 ml/min/1.73m2 Abnormal [facility] Comment on above: Result Comment: Mitchell vega Description GFR, ml/min/1.73 m2 - At increased risk > or = 60 (with chronic kidney disease risk factors) 1 Normal or increased GFR > or = 90 2 Mildly or decreased GFR 60 - 89 3 Moderately decreased GFR 30 - 59 4 Severely decreased GFR 15 - 29 5 Kidney failure <15 (or dialysis) Estimated GFR calculated using abbreviated MDRD formula as recommended by National Kidney Foundation. Calculation based upon serum creatinine and adjusted for age, gender & race. Lashonda. Internal Med., Vol. 139 (2) pg 137-147. Performed By: #### P OCGL #### [facility] [address] [place] [address] GLOM BASEMENT MEMB ABon 01-10 GLOM BASEMENT MEMB AB SEE BELOW Normal [facility] Comment on above: Result Comment: GBM Ab, IgG by IFA Negative Negative INTERPRETIVE INFORMATION: GBM Ab, IgG (IFA) When present, IgG antibody to glomerular basement membrane (GBM) antigen detected by either indirect fluorescent antibody (IFA) or multiplex bead assay helps support a diagnosis of Goodpasture syndrome. However, the combined result of both assays performed during initial evaluation improves the diagnostic sensitivity for disease. A positive result in one or both assays should be confirmed by renal biopsy. Test developed and characteristics determined by [facility]. See Compliance Statement D: [email or web address] GBM Ab, IgG by Multiplex Bead Assay 0 0-19 AU/mL INTERPRETIVE INFORMATION: GBM Ab, IgG by Multiplex Bead Assay 19 AU/mL or Less ......... Negative 20-25 AU/mL .............. Equivocal 26 AU/mL or Greater ...... Positive The presence of anti-glomerular basement membrane (GBM) antibodies by Multiplex Bead Assay may aid in the diagnosis of Goodpasture syndrome. False positive results may occur due to reactivity against other chains of type IV collagen. If Multiplex Bead Assay is negative but there is a strong suspicion for disease, renal biopsy may be indicated. A renal biopsy may also be essential in suspected Goodpasture disease with renal involvement, allowing diagnostic confirmation and assessment of renal prognosis. Performed By: [facility] [address] [place] [address] Celery Wrapper: Adriana Duncan MD Performed By: #### B MP, MG, ANION, EGFR1, NTBNP, TROPT #### [facility] [address] [place] [address] GLUCOSE POCon 02-03-2020 Glucose [Mass/Vol] 129 mg/dL High 70-108 [facility] Comment on above: Performed By: #### B MP, MG, ANION, EGFR1, NTBNP, TROPT #### [facility] [address] [place] [address] Glomerular Basement Membrane (GBM) Antibody IgGon 02-03-2020 GBM Ab SEE BELOW [place] Comment on above: GBM Ab, IgG by IFA N egative Negative INTERPRETIVE INFORMATION: GBM Ab, IgG (IFA) When present, IgG antibody to glomerular basement membrane (GBM) antigen detected by either indirect fluorescent antibody (IFA) or multiplex bead assay helps support a diagnosis of Goodpasture syndrome. However, the combined result of both assays performed during initial evaluation improves the diagnostic sensitivity for disease. A positive result in one or both assays should be confirmed by renal biopsy. Test developed and characteristics determined by [facility]. See Compliance Statement D: [email or web address] GBM Ab, IgG by Multiplex Bead Assay 0 0-19 AU/mL INTERPRETIVE INFORMATION: GBM Ab, IgG by Multiplex Bead Assay 19 AU/mL or Less ......... Negative 20-25 AU/mL .............. Equivocal 26 AU/mL or Greater ...... Positive The presence of anti-glomerular basement membrane (GBM) antibodies by Multiplex Bead Assay may aid in the diagnosis of Goodpasture syndrome. False positive results may occur due to reactivity against other chains of type IV collagen. If Multiplex Bead Assay is negative but there is a strong suspicion for disease, renal biopsy may be indicated. A renal biopsy may also be essential in suspected Goodpasture disease with renal involvement, allowing diagnostic confirmation and assessment of renal prognosis. Performed By: [facility] [address] [place] [address] Celery Wrapper: Adriana Duncan MD Glomerular Filtration Rate, Estimatedon 02-03-2020 Est, Glom Filt Rate 56 Abnormal ml/min/1.73m2 [place], [place] Comment on above: Stage Description GF R, ml/min/1.73 m2 - At increased risk > or = 60 (with chronic kidney disease risk factors) 1 Normal or increased GFR > or = 90 2 Mildly or decreased GFR 60 - 89 3 Moderately decreased GFR 30 - 59 4 Severely decreased GFR 15 - 29 5 Kidney failure <15 (or dialysis) Estimated GFR calculated using abbreviated MDRD formula as recommended by National Kidney Foundation. Calculation based upon serum creatinine and adjusted for age, gender & race. Lashonda. Internal Med., Vol. 139 (2) pg 137-147. Performed at [facility] [address] [place] [address] IMMUNOFIX MONO PROTEIN DETon 02-03-2020 IMMUNOFIX MONO PROTEIN DET SEE BELOW Normal [facility] Comment on above: Result Comment: Albu min 3.15 L 3.75-5.01 g/dL Total Protein, Serum 6.1 L 6.3-8.2 g/dL Alpha 1 Globulin 0.49 H 0.19-0.46 g/dL Alpha 2 Globulin 0.74 0.48-1.05 g/dL Beta Globulin 0.76 0.48-1.10 g/dL Gamma 0.97 0.62-1.51 g/dL Immunofixation EVERARDO Done SPEP/EVERARDO Interpretation See Note Decreased albumin region. EVERARDO gel shows a normal pattern; no monoclonal proteins seen. EER Monoclonal Protein Study, Serum See Note Access [employer] Enhanced Report using either link below: -Direct access: [email or web address] -Enter Username, Password: [email or web address] Username: [email or web address] Password: [email or web address] Performed By: [facility] [address] [place] [address] Celery Wrapper: Adriana Duncan MD Performed By: #### B MP, MG, ANION, EGFR1, NTBNP, TROPT #### [address] [address] Immunofixation electrophores shane 02-03-2020 Immunofixation Electrophoresis SEE BELOW [place] Comment on above: Albumin 3.15 L 3.75- 5.01 g/dL Total Protein, Serum 6.1 L 6.3-8.2 g/dL Alpha 1 Globulin 0.49 H 0.19-0.46 g/dL Alpha 2 Globulin 0.74 0.48-1.05 g/dL Beta Globulin 0.76 0.48-1.10 g/dL Gamma 0.97 0.62-1.51 g/dL [employer] EVERARDO Done SPEP/EVERARDO Interpretation See Note Decreased albumin region. EVERARDO gel shows a normal pattern; no monoclonal proteins seen. EER Monoclonal Protein Study, Serum See Note Access [employer] Enhanced Report using either link below: -Direct access: [email or web address] Username, Password: [email or web address] Username: [email or web address] Password: [email or web address] Performed By: [place] [address] Celery Wrapper: Adriana Duncan MD MAGNESIUMon 02-03-2020 Magnesium [Mass/Vol] 2.1 mg/dL Normal 1.6-2.4 [facility] Comment on above: Performed By: #### P OCGL #### [facility] [address] [place] [address] MPO/MS-3(ANCA) ABSon 020 Myeloperoxidase AB, IGG 0 AU/mL 0 - 19 AU/mL [place] Comment on above: INTERPRETIVE INFORMA TION: Myeloperoxidase Abs, IgG 19 AU/mL or Less ......... Negative 20-25 AU/mL .............. Equivocal 26 AU/mL or Greater ...... Positive Approximately 90% of patients with a P-ANCA pattern by IFA have antibodies specific for MPO. AMENDED on 02/03/20: Result in error was PERFORMED, verified at 20:35 on 01/30/20. Serine Protease 3, IGG 2 AU/mL 0 - 19 AU/mL [place] Comment on above: INTERPRETIVE INFORMA TION: Serine Proteinase 3, IgG 19 AU/mL or Less ........ Negative 20-25 AU/mL ............. Equivocal 26 AU/mL or Greater ..... Positive Approximately 85% of patients with a C-ANCA pattern by IFA have antibodies specific for PR3. Performed By: [facility] [address] [place] [address] Celery Wrapper: Adriana Duncan MD MPO/PR3 (ANCA) ANTIBODIESon 02-03-2020 MYELOPEROXIDASE AB IGG 0 AU/mL Normal 0-19 [facility] Comment on above: Result Comment: INTE RPRETIVE INFORMATION: Myeloperoxidase Abs, IgG 19 AU/mL or Less ......... Negative 20-25 AU/mL .............. Equivocal 26 AU/mL or Greater ...... Positive Approximately 90% of patients with a P-ANCA pattern by IFA have antibodies specific for MPO. AMENDED on 02/03/20: Result in error was PERFORMED, verified at 20:35 on 09/21/20. Performed By: #### B MP, MG, ANION, EGFR1, NTBNP, TROPT #### [address] [address] SERINE PROTEASE 3 IGG 2 AU/mL Normal 0-[address] [facility] Comment on above: Result Comment: INTE RPRETIVE INFORMATION: Serine Proteinase 3, IgG 19 AU/mL or Less ........ Negative 20-25 AU/mL ............. Equivocal 26 AU/mL or Greater ..... Positive Approximately 85% of patients with a C-ANCA pattern by IFA have antibodies specific for PR3. Performed By: [facility] [address] [place] [address] Celery Wrapper: Adriana Duncan MD Performed By: #### B MP, MG, ANION, EGFR1, NTBNP, TROPT #### [address] [address] Magnesiumon 02-03-2020 Magnesium [Mass/Vol] 2.1 mg/dL 1.6 - 2.4 mg/dL [place] Comment on above: Performed at [facility] [address] [place] [address] Otheron 02-03-2020 Interpretation and review of laboratory results Abnormal [place] POCT glucoseon 02-03-2020 Glucose [Mass/Vol] 129 mg/dL High 70 - 108 mg/dl [place], [place] Comment on above: Performed at [facility] [address] [place] [address] Interpretation and review of laboratory results Abnormal [place] SCAN OF BLOOD SMEARon 2019 SCAN OF BLOOD SMEAR see below Normal [facility] Comment on above: Result Comment: Crit eria Exceeded; Scan of Differential Slide Performed Performed By: #### P OCGL #### [address] [address] Scan of Blood Smearon 2019 SCAN OF BLOOD SMEAR see below [place] Comment on above: Criteria Exceeded; S can of Differential Slide Performed Performed at [facility] [address] [address] HOLLAND SCREENon 02-02-2020 HOLLAND SCREEN None Detected Normal None Detected [place], [place] Comment on above: If suspicion of conn ective tissue disease is strong and HOLLAND EIA is negative, consider testing for HOLLAND by IFA ([id number]). INTERPRETIVE INFORMATION: Anti-Nuclear Abs , IgG by ZAHRA Antinuclear Abs , IgG (ZAHRA): HOLLAND specimens are screened using enzyme-linked immunosorbent assay (ZAHRA) methodology. All ZAHRA results reported as Detected are further tested by indirect fluorescent assay (IFA) using HEp-2 substrate with an IgG-specific conjugate. The HOLLAND ZAHRA screen is designed to detect antibodies against dsDNA, histones, SS-A (Ro), SS-B (La), Phelan, Phelan/CORPORATE ATTORNEY, Scl-70, Pinky-1, centromeric proteins, other antigens extracted from the HEp-2 cell nucleus. HOLLAND ZAHRA assays have been reported to have lower sensitivities than HOLLAND IFA for systemic autoimmune rheumatic diseases (SARD). Negative results do not necessarily rule out SARD. Performed By: [facility] [address] [place] [address] Celery Wrapper: Adriana Duncan MD Result Comment: If s uspicion of connective tissue disease is strong and HOLLAND EIA is negative, consider testing for HOLLAND by IFA ([id number]). INTERPRETIVE INFORMATION: Anti-Nuclear Abs , IgG by ZAHRA Antinuclear Abs , IgG (ZAHRA): HOLLAND specimens are screened using enzyme-linked immunosorbent assay (ZAHRA) methodology. All ZAHRA results reported as Detected are further tested by indirect fluorescent assay (IFA) using HEp-2 substrate with an IgG-specific conjugate. The HOLLAND ZAHRA screen is designed to detect antibodies against dsDNA, histones, SS-A (Ro), SS-B (La), Phelan, Phelan/CORPORATE ATTORNEY, Scl-70, Pinky-1, centromeric proteins, other antigens extracted from the HEp-2 cell nucleus. HOLLAND ZAHRA assays have been reported to have lower sensitivities than HOLLAND IFA for systemic autoimmune rheumatic diseases (SARD). Negative results do not necessarily rule out SARD. Performed By: [facility] [address] [place] [address] Celery Wrapper: Adriana Duncan MD Performed By: #### B MP, MG, ANION, EGFR1, NTBNP, TROPT #### [facility] [address] [place] [address] ANION GAPon 02-02-2020 Anion gap [Moles/Vol] 7.0 mmol/L Low 8.0-16.0 [facility] Comment on above: Result Comment: ANIO N GAP = Sodium -(Chloride + CO2) Performed By: #### B MP, MG, ANION, EGFR1, NTBNP, TROPT #### [facility] [address] [place] [address] Anion Gapon 02-02-2020 Anion gap [Moles/Vol] 7.0 mmol/L Low 8 - 16 meq/L [place] Comment on above: ANION GAP = Sodium - (Chloride + CO2) Performed at [facility] [address] [place] [address] Anti-Neutrophilic Cytoplasmi c Antibodyon 02-02-2020 Neutrophil Cytoplasmic Ab Igg < 1:20 <1:20 [place] Comment on above: The ANCA IFA is <1:2 0; therefore, no further testing will be performed. INTERPRETIVE INFORMATION: Anti-Neutrophil Cyto Ab, IgG Neutrophil Cytoplasmic Abs (C-ANCA = granular cytoplasmic staining, P-ANCA = perinuclear staining) are found in the serum of over 90 percent of patients with certain necrotizing systemic vasculitides, and usually in less than 5 percent of patients with collagen vascular disease or arthritis. Performed By: [facility] [address] [place] [address] Celery Wrapper: Adriana Duncan MD BASIC METABOL PANELon 2019 Calcium [Mass/Vol] 9.1 mg/dL Normal 8.5-10.5 [facility] Comment on above: Performed By: #### B MP, MG, ANION, EGFR1, NTBNP, TROPT #### [address] [address] Chloride [Moles/Vol] 94 mmol/L Low 98-111 [facility] Comment on above: Performed By: #### B MP, MG, ANION, EGFR1, NTBNP, TROPT #### [facility] [address] [place] [address] CO2 [Moles/Vol] 40 mmol/L Critically high 23-33 [facility] Comment on above: Performed By: #### B MP, MG, ANION, EGFR1, NTBNP, TROPT #### [facility] [address] [place] [address] Creatinine [Mass/Vol] 0.9 mg/dL Normal 0.4-1.2 [facility] Comment on above: Performed By: #### B MP, MG, ANION, EGFR1, NTBNP, TROPT #### [facility] [address] [place] [address] Potassium [Moles/Vol] 4.0 mmol/L Normal 3.5-5.2 [facility] Comment on above: Performed By: #### B MP, MG, ANION, EGFR1, NTBNP, TROPT #### [facility] [address] [place] [address] Sodium [Moles/Vol] 141 mmol/L Normal 135-145 [facility] Comment on above: Performed By: #### B MP, MG, ANION, EGFR1, NTBNP, TROPT #### [facility] [address] [place] [address] Urea nitrogen [Mass/Vol] 28 mg/dL High 7-22 [facility] Comment on above: Performed By: #### B MP, MG, ANION, EGFR1, NTBNP, TROPT #### [facility] [address] [place] [address] Basic Metabolic Panelon 01-10 Calcium [Mass/Vol] 9.1 mg/dL 8.5 - 10. 5 mg/dL [place] Comment on above: Performed at [facility] [address] [place] [address] Chloride [Moles/Vol] 94 mmol/L Low 98 - 111 meq/L [place] CO2 [Moles/Vol] 40 mmol/L Critically high 23 - 33 meq/L [place] Creatinine [Mass/Vol] 0.9 mg/dL 0.4 - 1.2 mg/d L [place] Potassium [Moles/Vol] 4.0 mmol/L 3.5 - 5.2 meq/ L [place] Sodium [Moles/Vol] 141 mmol/L 135 - 145 meq/L [place] Urea nitrogen [Mass/Vol] 28 mg/dL High 7 - 22 mg/dL [place] Blood Gas, Arterialon 2019 Lluvia Test Positive [place], [place] Base Excess (Calculated) 14.4 mmol/l High -2.5 - 2.5 mmol/l [place] COLLECTED BY: [id number] [place], [place] Comment on above: Performed at [facility] [address] [place] [address] DEVICE Cannula [place] HCO3 (Bld) [Moles/Vol] 42 mmol/L High 23 - 28 mmol/l [place] IFIO2 3 [place] Interpretation and review of laboratory results Abnormal [place] Oxygen (Bld) [Partial pressure] 72 mm[Hg] [place] Oxygen saturation in Blood 93 % [place] PCO2 68 High [place] pH, Blood Gas 7.4 [place], [place] Source: R Radial [place] COMPLEMENT C3on 02-02-2020 COMPLEMENT C3 120 mg/dL Normal 90-180 [facility] Comment on above: Result Comment: [facility] [place], [place] [id number] ([phone] Performed By: #### P OCGL #### [facility] [employer] [address] [place] [address] GFR, ESTIMATEDon 02-02-2020 GFR/1.73 sq M.predicted MDRD (S/P/Bld) [Vol rate/Area] 63 ml/min/1.73m2 Abnormal [facility] Comment on above: Result Comment: Stag e Description GFR, ml/min/1.73 m2 - At increased risk > or = 60 (with chronic kidney disease risk factors) 1 Normal or increased GFR > or = 90 2 Mildly or decreased GFR 60 - 89 3 Moderately decreased GFR 30 - 59 4 Severely decreased GFR 15 - 29 5 Kidney failure <15 (or dialysis) Estimated GFR calculated using abbreviated MDRD formula as recommended by National Kidney Foundation. Calculation based upon serum creatinine and adjusted for age, gender & race. Lashonda. Internal Med., Vol. 139 (2) pg 137-147. Performed By: #### H H, BMP, MG, ANION, EGFR1 ####[facility] [address] [place] [address] GLUCOSE POCon 02-02-2020 Glucose [Mass/Vol] 159 mg/dL High 70-108 [facility] Comment on above: Performed By: #### B MP, MG, ANION, EGFR1, NTBNP, TROPT #### [facility] [address] [place] [address] Glucose [Mass/Vol] 116 mg/dL High 70-108 [facility] Comment on above: Performed By: #### P OCGL #### [facility] [address] [place] [address] Glucose [Mass/Vol] 123 mg/dL High 70-108 [facility] Comment on above: Performed By: #### P OCGL ####[facility] [employer] [facility] [address] [place] [address] Glucose [Mass/Vol] 106 mg/dL Normal 70-108 [place] Comment on above: Performed at [facility] [address] [place] [address] Performed By: #### B MP, MG, ANION, EGFR1, NTBNP, TROPT #### [facility] [address] [place] [address] Glomerular Filtration Rate, Estimatedon 02-02-2020 Est, Glom Filt Rate 63 Abnormal ml/min/1.73m2 [place], [place] Comment on above: Stage Description GF R, ml/min/1.73 m2 - At increased risk > or = 60 (with chronic kidney disease risk factors) 1 Normal or increased GFR > or = 90 2 Mildly or decreased GFR 60 - 89 3 Moderately decreased GFR 30 - 59 4 Severely decreased GFR 15 - 29 5 Kidney failure <15 (or dialysis) Estimated GFR calculated using abbreviated MDRD formula as recommended by National Kidney Foundation. Calculation based upon serum creatinine and adjusted for age, gender & race. Lashonda. Internal Med., Vol. 139 (2) pg 137-147. Performed at [facility] [address] [place] [address] Interpretation and review of laboratory results Abnormal [place] HGB,HCTon 02-02-2020 Hematocrit (Bld) [Volume fraction] 34.6 % Low 37.0-47.0 [facility] Comment on above: Performed By: #### B MP, MG, ANION, EGFR1, NTBNP, TROPT #### [facility] [employer] [address] [place] [address] Hemoglobin (Bld) [Mass/Vol] 10.2 gm/dl Low 12.0-16.0 [facility] Comment on above: Performed By: #### B MP, MG, ANION, EGFR1, NTBNP, TROPT #### [facility] [address] [place] [address] Hemoglobin and hematocrit, b loodon 02-02-2020 Hematocrit (Bld) [Volume fraction] 34.6 % Low 37 - 47 % [place] Comment on above: Performed at [facility] [address] [place] [address] Hemoglobin (Bld) [Mass/Vol] 10.2 g/dL Low [place] Interpretation and review of laboratory results Abnormal [place] ISTAT BLOOD GASon 02-02-2020 LLUVIA'S TEST Positive Normal [facility] Comment on above: Performed By: #### P OCGL #### [facility] [address] [place] [address] BASE EXCESS 14.4 mmol/l High -2.5-2.5 [facility] Comment on above: Performed By: #### P OCGL #### [facility] [email or web address] [address] [place] [address] COLLECTED BY [id number] [facility] Comment on above: Performed By: #### P OCGL #### [facility] [address] [place] [address] DEVICE Cannula [facility] Comment on above: Performed By: #### P OCGL #### [facility] [address] [place] [address] FIO2 3 [facility] Comment on above: Performed By: #### P OCGL #### [facility] [employer] [facility] [address] [place] [address] HCO3 (Bld) [Moles/Vol] 42 mmol/L High 23-28 [facility] Comment on above: Performed By: #### P OCGL #### [facility] [address] [place] [address] Oxygen (Bld) [Partial pressure] 72 mm[Hg] Normal 71-104 [facility] Comment on above: Performed By: #### P OCGL #### [facility] [address] [place] [address] Oxygen saturation in Blood 93 % Normal [facility] Comment on above: Performed By: #### P OCGL #### [facility] [address] [place] [address] PCO2 68 mmhg High 35-45 [facility] Comment on above: Performed By: #### P OCGL #### [facility] [address] [place] [address] pH (Bld) 7.40 [pH] Normal 7.35-7.45 [facility] Comment on above: Performed By: #### P OCGL #### [address] [address] SITE R Radial Normal [facility] Comment on above: Performed By: #### P OCGL #### [address] [address] KAPPA/LAMBDA QUANT FREE LIGH T CHAINSon 02-02-2020 KAPPA/LAMBDA QUANT FREE LIGHT CHAINS SEE BELOW Normal [facility] Comment on above: Result Comment: Maggie a Qnt Free Light Chains 101.70 H 3.30- 19.40 mg/L INTERPRETIVE INFORMATION: [place] Qnt Free Light Chains Undetected antigen excess is a rare event but cannot be excluded. Free light chain results should always be interpreted in conjunction with other clinical and laboratory findings. Lambda Qnt Free Light Chains 54.01 H 5.71-26.30 mg/L [place]/Lambda Free Light Chain Ratio 1.88 H 0.26-1.65 Performed By: [facility] [address] [place] [address] Celery Wrapper: Adriana Duncan MD Performed By: #### B MP, MG, ANION, EGFR1, NTBNP, TROPT #### [facility] [address] [place] [address] [place]/Lambda Free Lt Chains, Serum Quanton 02-02-2020 [place]/Lambda Free Light Chains SEE BELOW [place] Comment on above: [place] Qnt Free Light Chains 101.70 H 3.30-19.40 mg/L INTERPRETIVE INFORMATION: [place] Qnt Free Light Chains Undetected antigen excess is a rare event but cannot be excluded. Free light chain results should always be interpreted in conjunction with other clinical and laboratory findings. Lambda Qnt Free Light Chains 54.01 H 5.71-26.30 mg/L [place]/Lambda Free Light Chain Ratio 1.88 H 0.26-1.65 Performed By: [facility] [address] [place] [address] Celery Wrapper: Adriana Duncan MD MAGNESIUMon 02-02-2020 Magnesium [Mass/Vol] 1.6 mg/dL Normal 1.6-2.4 [facility] Comment on above: Performed By: #### B MP, MG, ANION, EGFR1, NTBNP, TROPT #### [employer] [address] [address] Magnesiumon 02-02-2020 Magnesium [Mass/Vol] 1.6 mg/dL 1.6 - 2.4 mg/dL [place] Comment on above: Performed at [facility] [address] [place] [address] NEUTRO CYTOPLAS ABon 020 NEUTRO CYTOPLAS AB < 1:20 Normal <1:20 [facility] Comment on above: Result Comment: The ANCA IFA is <1:20; therefore, no further testing will be performed. INTERPRETIVE INFORMATION: Anti-Neutrophil Cyto Ab, IgG Neutrophil Cytoplasmic Abs (C-ANCA = granular cytoplasmic staining, P-ANCA = perinuclear staining) are found in the serum of over 90 percent of patients with certain necrotizing systemic vasculitides, and usually in less than 5 percent of patients with collagen vascular disease or arthritis. Performed By: [facility] [address] [place] [address] Celery Wrapper: Adriana Duncan MD Performed By: #### B MP, MG, ANION, EGFR1, NTBNP, TROPT #### [facility] [address] [place] [address] Otheron 02-02-2020 Interpretation and review of laboratory results Abnormal [place] POCT glucoseon 02-02-2020 Glucose [Mass/Vol] 159 mg/dL High 70 - 108 mg/dl [place] Comment on above: Performed at [facility] [address] [place] [address] Interpretation and review of laboratory results Abnormal [place] Glucose [Mass/Vol] 116 mg/dL High 70 - 108 mg/dl [place] Comment on above: Performed at [facility] [address] [place] [address] Interpretation and review of laboratory results Abnormal [place] Glucose [Mass/Vol] 123 mg/dL High 70 - 108 mg/dl [place] Comment on above: Performed at [facility] [address] [place] [address] Interpretation and review of laboratory results Abnormal [place] ANION GAPon 02-01-2020 Anion gap [Moles/Vol] 8.0 mmol/L Normal 8.0-16.0 [facility] Comment on above: Result Comment: ANIO N GAP = Sodium -(Chloride + CO2) Performed By: #### P OCGL #### [facility] [address] [place] [address] Anion Gapon 02-01-2020 Anion gap [Moles/Vol] 8.0 mmol/L 8 - 16 meq/L [place] Comment on above: ANION GAP = Sodium - (Chloride + CO2) Performed at [facility] [address] [place] [address] BASIC METABOL PANELon 2019 Calcium [Mass/Vol] 9.2 mg/dL Normal 8.5-10.5 [facility] Comment on above: Performed By: #### P OCGL #### [facility] [address] [place] [address] Chloride [Moles/Vol] 95 mmol/L Low 98-111 [facility] Comment on above: Performed By: #### P OCGL #### [facility] [address] [place] [address] CO2 [Moles/Vol] 38 mmol/L High 23-33 [facility] Comment on above: Performed By: #### P OCGL #### [facility] [address] [place] [address] Creatinine [Mass/Vol] 1.1 mg/dL Normal 0.4-1.2 [facility] Comment on above: Performed By: #### P OCGL #### [facility] [employer] [facility] [address] [place] [address] Glucose [Mass/Vol] 103 mg/dL Normal 70-108 [facility] Comment on above: Performed By: #### P OCGL #### [facility] [employer] [facility] [address] [place] [address] Potassium [Moles/Vol] 4.3 mmol/L Normal 3.5-5.2 [facility] Comment on above: Performed By: #### P OCGL #### [facility] [employer] [facility] [address] [place] [address] Sodium [Moles/Vol] 141 mmol/L Normal 135-145 [facility] Comment on above: Performed By: #### P OCGL #### [facility] [employer] [facility] [address] [place] [address] Urea nitrogen [Mass/Vol] 34 mg/dL High 7-22 [facility] Comment on above: Performed By: #### P OCGL #### [facility] [employer] [address] [address] Basic Metabolic Panelon 01-10 Calcium [Mass/Vol] 9.2 mg/dL 8.5 - 10. 5 mg/dL [place] Comment on above: Performed at [facility] [address] [place] [address] Chloride [Moles/Vol] 95 mmol/L Low 98 - 111 meq/L [place] CO2 [Moles/Vol] 38 mmol/L High 23 - 33 meq/L [place] Creatinine [Mass/Vol] 1.1 mg/dL 0.4 - 1.2 mg/d L [facility], [place] Glucose [Mass/Vol] 103 mg/dL 70 - 108 mg/dL [facility], [place] Potassium [Moles/Vol] 4.3 mmol/L 3.5 - 5.2 meq/ L [place] Sodium [Moles/Vol] 141 mmol/L 135 - 145 meq/L [place] Urea nitrogen [Mass/Vol] 34 mg/dL High 7 - 22 mg/dL [place] Blood gas, venouson 02-01-20 20 Base Exc, Mixed 11.2 mmol/l High -2 - 3 mmol/l [place] COLLECTED BY: [id number] [place] DEVICE Cannula [place] Comment on above: Performed at [facility] [address] [place] [address] FIO2, MIXED VENOUS 3 [place], [place] HCO3, Mixed 38 mmol/l High 23 - 28 mmol/l [place], [place] Interpretation and review of laboratory results Abnormal [place] Oxygen saturation in Blood 71 % [place] PCO2, MIXED VENOUS 58 High [place], [place] PH MIXED 7.42 High [place], [place] PO2, Mixed 38 [place], [place] C3 Complementon 02-01-2020 C3 Complement 120 mg/dL 90 - 180 mg/dL [place], [place] Comment on above: [employer] [address] [place], [place] [id number] ([phone] GFR, ESTIMATEDon 02-01-2020 GFR/1.73 sq M.predicted MDRD (S/P/Bld) [Vol rate/Area] 50 ml/min/1.73m2 Abnormal [facility] Comment on above: Result Comment: Mitchell vega Description GFR, ml/min/1.73 m2 - At increased risk > or = 60 (with chronic kidney disease risk factors) 1 Normal or increased GFR > or = 90 2 Mildly or decreased GFR 60 - 89 3 Moderately decreased GFR 30 - 59 4 Severely decreased GFR 15 - 29 5 Kidney failure <15 (or dialysis) Estimated GFR calculated using abbreviated MDRD formula as recommended by National Kidney Foundation. Calculation based upon serum creatinine and adjusted for age, gender & race. Lashonda. Internal Med., Vol. 139 (2) pg 137-147. Performed By: #### P OCGL #### [facility] [address] [place] [address] GLUCOSE POCon 02-01-2020 Glucose [Mass/Vol] 157 mg/dL High 70-108 [facility] Comment on above: Performed By: #### P OCGL #### [facility] [address] [place] [address] Glucose [Mass/Vol] 155 mg/dL High 70-108 [facility] Comment on above: Performed By: #### P OCGL ####[facility] [address] [place] [address] Glucose [Mass/Vol] 110 mg/dL High 70-108 [facility] Comment on above: Performed By: #### P OCGL ####[facility] [employer] [id number] [place] [address] Glomerular Filtration Rate, Estimatedon 02-01-2020 Est, Glom Filt Rate 50 Abnormal ml/min/1.73m2 [place] Comment on above: Stage Description G FR, ml/min/1.73 m2 - At increased risk > or = 60 (with chronic kidney disease risk factors) 1 Normal or increased GFR > or = 90 2 Mildly or decreased GFR 60 - 89 3 Moderately decreased GFR 30 - 59 4 Severely decreased GFR 15 - 29 5 Kidney failure <15 (or dialysis) Estimated GFR calculated using abbreviated MDRD formula as recommended by National Kidney Foundation. Calculation based upon serum creatinine and adjusted for age, gender & race. Lashonda. Internal Med., Vol. 139 (2) pg 137-147. Performed at [facility] [address] [place] [address] HAPTOGLOBINon 02-01-2020 Haptoglobin 163 mg/dL Normal 30-200 [place] Comment on above: Performed By: [facility] [address] [place] [address] Celery Wrapper: Adriana Duncan MD Result Comment: Perf ormed By: [facility] [address] [place] [address] Celery Wrapper: Adriana Duncan MD Performed By: #### B MP, MG, ANION, EGFR1, NTBNP, TROPT #### [facility] [address] [place] [address] HGB,HCTon 02-01-2020 Hematocrit (Bld) [Volume fraction] 34.7 % Low 37.0-47.0 [facility] Comment on above: Performed By: #### P OCGL #### [facility] [address] [place] [address] Hemoglobin (Bld) [Mass/Vol] 10.2 gm/dl Low 12.0-16.0 [facility] Comment on above: Performed By: #### P OCGL #### [facility] [employer] [address] [address] Hemoglobin and Hematocrit, B loodon 02-01-2020 Hematocrit (Bld) [Volume fraction] 34.7 % Low 37 - 47 % [place] Comment on above: Performed at [facility] [address] [place] [address] Hemoglobin (Bld) [Mass/Vol] 10.2 g/dL Low [place] Interpretation and review of laboratory results Abnormal [place] ISTAT VENOUS GAS PROFILEon 0 02-01-2020 BASE EXCESS* VENOUS 11.2 mmol/l High -2.0-3.0 [facility] Comment on above: Performed By: #### B MP, MG, ANION, EGFR1, NTBNP, TROPT #### [facility] [email or web address] [address] [place] [address] COLLECTED BY* VENOUS [id number] Normal [facility] Comment on above: Performed By: #### B MP, MG, ANION, EGFR1, NTBNP, TROPT #### [facility] [address] [place] [address] DEVICE Cannula Normal [facility] Comment on above: Performed By: #### B MP, MG, ANION, EGFR1, NTBNP, TROPT #### [facility] [email or web address] [address] [place] [address] FIO2* VENOUS 3 Normal [facility] Comment on above: Performed By: #### B MP, MG, ANION, EGFR1, NTBNP, TROPT #### [facility] [address] [place] [address] HCO3* VENOUS 38 mmol/l High 23-28 [facility] Comment on above: Performed By: #### B MP, MG, ANION, EGFR1, NTBNP, TROPT #### [facility] [address] [place] [address] Oxygen saturation in Blood 71 % Normal [facility] Comment on above: Performed By: #### B MP, MG, ANION, EGFR1, NTBNP, TROPT #### [address] [address] PCO2* VENOUS 58 mmhg High 41-51 [facility] Comment on above: Performed By: #### B MP, MG, ANION, EGFR1, NTBNP, TROPT #### [address] [address] PH* VENOUS 7.42 High 7.31-7.41 [facility] Comment on above: Performed By: #### B MP, MG, ANION, EGFR1, NTBNP, TROPT #### [address] [address] PO2* VENOUS 38 mmhg Normal 25-40 [facility] Comment on above: Performed By: #### B MP, MG, ANION, EGFR1, NTBNP, TROPT #### [address] [address] MAGNESIUMon 02-01-2020 Magnesium [Mass/Vol] 1.7 mg/dL Normal 1.6-2.4 [facility] Comment on above: Performed By: #### P OCGL #### [address] [address] Magnesiumon 02-01-2020 Magnesium [Mass/Vol] 1.7 mg/dL 1.6 - 2.4 mg/dL [place] Comment on above: Performed at [facility] [address] [place] [address] Otheron 02-01-2020 Interpretation and review of laboratory results Abnormal [place] POCT glucoseon 02-01-2020 Glucose [Mass/Vol] 157 mg/dL High 70 - 108 mg/dl [place] Comment on above: Performed at [facility] [address] [place] [address] Interpretation and review of laboratory results Abnormal [place] Glucose [Mass/Vol] 155 mg/dL High 70 - 108 mg/dl [place] Comment on above: Performed at [facility] [address] [place] [address] Interpretation and review of laboratory results Abnormal [place] Glucose [Mass/Vol] 110 mg/dL High 70 - 108 mg/dl [place], [place] Comment on above: Performed at [facility] [address] [place] [address] Interpretation and review of laboratory results Abnormal [place] ANION GAPon 01-31-2020 Anion gap [Moles/Vol] 11.0 mmol/L Normal 8.0-16.0 [facility] Comment on above: Result Comment: ANIO N GAP = Sodium -(Chloride + CO2) Performed By: #### B MP, MG, ANION, EGFR1, NTBNP, TROPT #### [facility] [employer] [place] [address] Anion Gapon 01-31-2020 Anion gap [Moles/Vol] 11.0 mmol/L 8 - 16 meq/L [place] Comment on above: ANION GAP = Sodium - (Chloride + CO2) Performed at [facility] [address] BASIC METABOL PANELon 2019 Calcium [Mass/Vol] 9.0 mg/dL Normal 8.5-10.5 [facility] Comment on above: Performed By: #### B MP, MG, ANION, EGFR1, NTBNP, TROPT #### [facility] [address] [place] [address] Chloride [Moles/Vol] 93 mmol/L Low 98-111 [facility] Comment on above: Performed By: #### B MP, MG, ANION, EGFR1, NTBNP, TROPT #### [facility] [address] [place] [address] CO2 [Moles/Vol] 31 mmol/L Normal 23-33 [facility] Comment on above: Performed By: #### B MP, MG, ANION, EGFR1, NTBNP, TROPT #### [facility] [address] [place] [address] Creatinine [Mass/Vol] 1.7 mg/dL High 0.4-1.2 [facility] Comment on above: Performed By: #### B MP, MG, ANION, EGFR1, NTBNP, TROPT #### [address] [address] Glucose [Mass/Vol] 135 mg/dL High 70-108 [facility] Comment on above: Performed By: #### B MP, MG, ANION, EGFR1, NTBNP, TROPT #### [address] [address] Potassium [Moles/Vol] 3.7 mmol/L Normal 3.5-5.[address] [facility] Comment on above: Performed By: #### B MP, MG, ANION, EGFR1, NTBNP, TROPT #### [address] [address] Sodium [Moles/Vol] 135 mmol/L Normal 135-145 [facility] Comment on above: Performed By: #### B MP, MG, ANION, EGFR1, NTBNP, TROPT #### [address] [address] Urea nitrogen [Mass/Vol] 41 mg/dL High 7-22 [facility] Comment on above: Performed By: #### B MP, MG, ANION, EGFR1, NTBNP, TROPT #### [address] [address] BLOOD CULTUREon 01-31-2020 Bacteria identified Cx Nom (Bld) MICROBIOLOGY REPORT [facility], [address] [place] [address], [id number] PATIENT: SAMREEN DAWSON LOCATION: [id number] -[id number] -A : 1955 AGE: 64 SEX: F ADM: 01/30/20 Att. Physician: ZIYAD MALLORY Order Id: [id number] Req. Physician: KIM GOLD Source: [id number] al <5.5oz./set volume Site: Peripheral Vein Collected: 01/31/20 00:21 Current Antibiotics: not stated Antibiotics comment: STATUS OF ORDERED AND REPORTED TESTS BLOOD CULTURE FINAL 02/05/20 BLOOD CULTURE FINAL 02/05/20 13:03 01/31/20 No growth-preliminary 02/05/20 No growth Normal [facility] Basic Metabolic Panelon 01-10 Calcium [Mass/Vol] 9.0 mg/dL 8.5 - 10. 5 mg/dL [place] Comment on above: Performed at [facility] [address] [place] [address] Chloride [Moles/Vol] 93 mmol/L Low 98 - 111 meq/L [place] CO2 [Moles/Vol] 31 mmol/L 23 - 33 meq/L [place] Creatinine [Mass/Vol] 1.7 mg/dL High 0.4 - 1.2 mg/d L [place] Glucose [Mass/Vol] 135 mg/dL High 70 - 108 mg/dL [place], [place] Potassium [Moles/Vol] 3.7 mmol/L 3.5 - 5.2 meq/ L [place] Sodium [Moles/Vol] 135 mmol/L 135 - 145 meq/L [place] Urea nitrogen [Mass/Vol] 41 mg/dL High 7 - 22 mg/dL [place] Blood Gas, Arterialon 2019 Lluvia Test Positive [place], [place] Base Excess (Calculated) 9.9 mmol/l High -2.5 - 2.5 mmol/l [place] COLLECTED BY: [place] Comment on above: Performed at [facility] [address] [place] [address] DEVICE Cannula [place] HCO3 (Bld) [Moles/Vol] 37 mmol/L High 23 - 28 mmol/l [place] IFIO2 5 [place] Interpretation and review of laboratory results Abnormal [place] Oxygen (Bld) [Partial pressure] 68 mm[Hg] Low [place] Oxygen saturation in Blood 92 % [place] PCO2 64 High [place] pH, Blood Gas 7.37 [place], [place] Source: L Radial [place] C-REACTIVE PROTEINon 020 CRP [Mass/Vol] 2.35 mg/dl High 0.00-1.00 [facility] Comment on above: Performed By: #### B MP, MG, ANION, EGFR1, NTBNP, TROPT #### [facility] [address] [place] [address] C-reactive proteinon 020 CRP [Mass/Vol] 2.35 mg/dl High 0 - 1 mg/dl [place], [place] Comment on above: Performed at [facility] [address] [place] [address] C4 Complementon 01-31-2020 Complement C4 25 mg/dL 10 - 40 mg/dL [place], [place] Comment on above: [employer] [address] [place], [place] [id number] ([phone] CBCon 01-31-2020 Erythrocyte distribution width (RBC) [Ratio] 18.3 % High 11.5 - 14.5 % [place] Hematocrit (Bld) [Volume fraction] 33.4 % Low 37 - 47 % [place] Hemoglobin (Bld) [Mass/Vol] 9.3 g/dL [place] Interpretation and review of laboratory results Abnormal [place] MCH (RBC) [Entitic mass] 26.2 pg 26 - 33 pg [place] MCHC (RBC) [Mass/Vol] 27.8 g/dL [place] MCV (RBC) [Entitic vol] 94.1 fL 81 - 99 fL [place] Platelet mean volume (Bld) [Entitic vol] 12.3 fL 9.4 - 12.4 fL [place], [place] Comment on above: Performed at [facility] [address] [place] [address] Platelets (Bld) [#/Vol] 133 10*3/uL [place] RBC (Bld) [#/Vol] 3.55 10*6/uL Low [place] RDW-SD 63.6 fL High 35 - 45 fL [place] WBC (Bld) [#/Vol] 8.3 10*3/uL [place] CBC NO DIFFERENTIALon 2019 Erythrocyte distribution width (RBC) [Ratio] 18.3 % High 11.5-14.5 [facility] Comment on above: Performed By: #### B MP, MG, ANION, EGFR1, NTBNP, TROPT #### [address] [address] Hematocrit (Bld) [Volume fraction] 33.4 % Low 37.0-47.0 [facility] Comment on above: Performed By: #### B MP, MG, ANION, EGFR1, NTBNP, TROPT #### [address] [address] Hemoglobin (Bld) [Mass/Vol] 9.3 gm/dl Low 12.0-16.0 [facility] Comment on above: Performed By: #### B MP, MG, ANION, EGFR1, NTBNP, TROPT #### [address] [address] MCH (RBC) [Entitic mass] 26.2 pg Normal 26.0-33.0 [facility] Comment on above: Performed By: #### B MP, MG, ANION, EGFR1, NTBNP, TROPT #### [address] [address] MCHC (RBC) [Mass/Vol] 27.8 gm/dl Low 32.2-35.5 [facility] Comment on above: Performed By: #### B MP, MG, ANION, EGFR1, NTBNP, TROPT #### [address] [address] MCV (RBC) [Entitic vol] 94.1 fL Normal 81.0-99.0 [facility] Comment on above: Performed By: #### B MP, MG, ANION, EGFR1, NTBNP, TROPT #### [address] [address] Platelet mean volume (Bld) [Entitic vol] 12.3 fL Normal 9.4-12.4 [facility] Comment on above: Performed By: #### B MP, MG, ANION, EGFR1, NTBNP, TROPT #### [address] [address] Platelets (Bld) [#/Vol] 133 thou/mm3 Normal 130-400 [facility] Comment on above: Performed By: #### B MP, MG, ANION, EGFR1, NTBNP, TROPT #### [address] [address] RBC (Bld) [#/Vol] 3.55 mill/mm3 Low 4.20-5.40 [facility] Comment on above: Performed By: #### B MP, MG, ANION, EGFR1, NTBNP, TROPT #### [address] [address] RDW-SD 63.6 fL High 35.0-45.0 [facility] Comment on above: Performed By: #### B MP, MG, ANION, EGFR1, NTBNP, TROPT #### [address] [address] WBC (Bld) [#/Vol] 8.3 thou/mm3 Normal 4.8-10.8 [facility] Comment on above: Performed By: #### B MP, MG, ANION, EGFR1, NTBNP, TROPT #### [address] [address] COMPLEMENT C4on 01-31-2020 COMPLEMENT C4 25 mg/dL Normal 10-40 [facility] Comment on above: Result Comment: [address] [place] [address] [phone] Performed By: #### B MP, MG, ANION, EGFR1, NTBNP, TROPT #### [address] [address] EKG 12 Leadon 01-31-2020 Atrial Rate 66 BPM [facility], [place] P Ada 52 degrees [facility] P-R Interval 198 ms [facility] Q-T Interval 458 ms [facility] QRS Duration 188 ms [facility] QTc Calculation (Bazett) 480 ms [facility], ERIC R Ada 88 degrees [facility], ERIC T Ada -100 degrees [facility], ERIC Urea nitrogen [Mass/Vol] Normal sinus rhythm Possible Left atrial enlargement Right bundle branch block Cannot rule out Inferior infarct (cited on or before 25-JAN-2020) T wave abnormality, consider lateral ischemia Abnormal ECG When compared with ECG of 25-JAN-2020 03:03, Serial changes of Inferior infarct Present Confirmed by YVAN MARTINS MD ([id number]) on 01/31/2020 10:47:12 PM [facility] Lorena [place], ERIC Ventricular Rate 66 BPM [facility], ERIC Cristofer, [facility] Incoming [place] Results - 01/31/2020 10:47 PM EDT Normal sinus rhythm Possible Left atrial enlargement Right bundle branch block Cannot rule out Inferior infarct (cited on or before 25-JAN-2020) T wave abnormality, consider lateral ischemia Abnormal ECG When compared with ECG of 25-JAN-2020 03:03, Serial changes of Inferior infarct Present Confirmed by YVAN MARTINS MD ([id number]) on 01/31/2020 10:47:12 PM [email or web address] EKG 12-LEADon 01-31-2020 EKG 12-LEAD 66 66 198 [phone] 88 -100 Normal sinus rhythm Possible Left atrial enlargement Right bundle branch block Cannot rule out Inferior infarct (cited on or before 25-JAN-2020) T wave abnormality, consider lateral ischemia Abnormal ECG When compared with ECG of 25-JAN-2020 03:03, Serial changes of Inferior infarct Present Confirmed by YVAN MARTINS MD ([id number]) on 01/31/2020 10:47:12 PM [email or web address] teTime?[email or web address] [id number]&Date=31-01-20 20&Time=12%3a12%3a03 %3a00&TestType=ECG&S ite=3&OutputType=PDF &Ext=PDF Normal [facility] GFR, ESTIMATEDon 01-31-2020 GFR/1.73 sq M.predicted MDRD (S/P/Bld) [Vol rate/Area] 30 ml/min/1.73m2 Abnormal [facility] Comment on above: Result Comment: Stag e Description GFR, ml/min/1.73 m2 - At increased risk > or = 60 (with chronic kidney disease risk factors) 1 Normal or increased GFR > or = 90 2 Mildly or decreased GFR 60 - 89 3 Moderately decreased GFR 30 - 59 4 Severely decreased GFR 15 - 29 5 Kidney failure <15 (or dialysis) Estimated GFR calculated using abbreviated MDRD formula as recommended by National Kidney Foundation. Calculation based upon serum creatinine and adjusted for age, gender & race. Lashonda. Internal Med., Vol. 139 (2) pg 137-147. Performed By: #### B MP, MG, ANION, EGFR1, NTBNP, TROPT #### [facility] [address] [place] [address] GLUCOSE POCon 01-31-2020 Glucose [Mass/Vol] 182 mg/dL [facility] [address] Comment on above: Performed By: #### B MP, MG, ANION, EGFR1, NTBNP, TROPT #### [facility] [address] [place] [address] Glucose [Mass/Vol] 147 mg/dL [facility] [address] Comment on above: Performed By: #### H H #### [facility] [address] [place] [address] Glucose [Mass/Vol] 122 mg/dL [facility] [address] [place], [place] Comment on above: Performed at [facility] [address] [place] [address] Performed By: #### H H #### [facility] [address] [place] [address] Glucose [Mass/Vol] 201 mg/dL [facility] [address] [place] [address] Comment on above: Performed By: #### P OCGL #### [facility] [address] [place] [address] Glomerular Filtration Rate, Estimatedon 01-31-2020 Est, Glom Filt Rate 30 Abnormal ml/min/1.73m2 [facility], [place] Comment on above: Stage Description GF R, ml/min/1.73 m2 - At increased risk > or = 60 (with chronic kidney disease risk factors) 1 Normal or increased GFR > or = 90 2 Mildly or decreased GFR 60 - 89 3 Moderately decreased GFR 30 - 59 4 Severely decreased GFR 15 - 29 5 Kidney failure <15 (or dialysis) Estimated GFR calculated using abbreviated MDRD formula as recommended by National Kidney Foundation. Calculation based upon serum creatinine and adjusted for age, gender & race. Lashonda. Internal Med., Vol. 139 (2) pg 137-147. [place] [address] HEPATIC FUNCTION PANELon Albumin [Mass/Vol] 3.4 g/dL Low 3.5-5.1 [facility] Comment on above: Performed By: #### B MP, MG, ANION, EGFR1, NTBNP, TROPT #### [address] [address] ALP [Catalytic activity/Vol] 61 U/L Normal 38-126 [facility] Comment on above: Performed By: #### B MP, MG, ANION, EGFR1, NTBNP, TROPT #### [address] [address] ALT [Catalytic activity/Vol] 42 U/L Normal 11-66 [facility] Comment on above: Performed By: #### B MP, MG, ANION, EGFR1, NTBNP, TROPT #### [address] [address] AST [Catalytic activity/Vol] 39 U/L Normal 5-40 [facility] Comment on above: Performed By: #### B MP, MG, ANION, EGFR1, NTBNP, TROPT #### [address] [address] Bilirubin [Mass/Vol] 0.4 mg/dL High 0.0-0.3 [facility] Comment on above: Performed By: #### B MP, MG, ANION, EGFR1, NTBNP, TROPT #### [address] [address] Bilirubin Ql (U) 0.9 mg/dL Normal 0.3-1.2 [facility] Comment on above: Performed By: #### B MP, MG, ANION, EGFR1, NTBNP, TROPT #### [address] [address] Protein [Mass/Vol] 6.6 g/dL Normal 6.1-8.0 [facility] Comment on above: Performed By: #### B MP, MG, ANION, EGFR1, NTBNP, TROPT #### [address] [address] HEPATITIS B SURFACE AGon HEPATITIS B SURFACE AG Negative Normal [facility] Comment on above: Result Comment: Refe rence Value = Negative Interpretation depends on clinical setting. Performed By: #### B MP, MG, ANION, EGFR1, NTBNP, TROPT #### [facility] [employer] [address] [address] HEPATITIS C ANTIBODIESon HEPATITIS C ANTIBODIES Negative Normal [facility] Comment on above: Result Comment: Refe rence Range = Negative Performed By: #### B MP, MG, ANION, EGFR1, NTBNP, TROPT #### [facility] [place] [address] Hepatic Function Panelon Albumin [Mass/Vol] 3.4 g/dL Low 3.5 - 5.1 g/dL [place], [place] ALP [Catalytic activity/Vol] 61 U/L 38 - 126 U/L [place] ALT [Catalytic activity/Vol] 42 U/L 11 - 66 U/L [place] AST [Catalytic activity/Vol] 39 U/L 5 - 40 U/L [place] Bilirubin Ql (U) 0.9 mg/dL 0.3 - 1.2 mg/dL [place] Bilirubin.direct [Mass/Vol] 0.4 mg/dL High 0 - 0.3 mg/dL [place] Protein [Mass/Vol] 6.6 g/dL 6.1 - 8 g/dL [place], [place] Comment on above: Performed at [facility] [address] [place] [address] Hepatitis B Surface Antigeno n 01-31-2020 Hepatitis B Surface Ag Negative [place] Comment on above: Reference Value = Ne gative Interpretation depends on clinical setting. Performed at [facility] [address] [place], [place] [address] Hepatitis C Antibodyon 01-30 Hepatitis C Ab Negative Amisha Pereira [facility], [place] Comment on above: Reference Range = Ne gative Performed at [facility] [address] [place] [address] ISTAT BLOOD GASon 01-31-2020 LLUVIA'S TEST Positive [facility] Comment on above: Performed By: #### A BG4 ####[facility] [employer] [facility] [address] [place] [address] BASE EXCESS 9.9 mmol/l High -2.5-2.5 [facility] Comment on above: Performed By: #### A BG4 ####[facility] [employer] [facility] [address] [place] [address] COLLECTED BY [id number] [facility] Comment on above: Performed By: #### A BG4 ####[facility] [employer] [facility] [address] [place] [address] DEVICE Cannula [facility] Comment on above: Performed By: #### A BG4 ####[facility] [employer] [facility] [address] [place] [address] FIO2 5 [facility] Comment on above: Performed By: #### A BG4 ####[facility] [employer] [address] [place] [address] HCO3 (Bld) [Moles/Vol] 37 mmol/L High 23-28 [facility] Comment on above: Performed By: #### A BG4 ####[facility] [address] [place] [address] Oxygen (Bld) [Partial pressure] 68 mm[Hg] Low 71-104 [facility] Comment on above: Performed By: #### A BG4 ####[facility] [employer] [facility] [address] [place] [address] Oxygen saturation in Blood 92 % [facility] Comment on above: Performed By: #### A BG4 ####[facility] [facility] [address] [place] [address] PCO2 64 mmhg High 35-45 [facility] Comment on above: Performed By: #### A BG4 ####[facility] [facility] [address] [place] [address] pH (Bld) 7.37 [pH] Normal 7.35-7.45 [facility] Comment on above: Performed By: #### A BG4 ####[facility] [address] [place] [address] SITE L Radial Normal [facility] Comment on above: Performed By: #### A BG4 ####[facility] [address] [place] [address] MAGNESIUMon 01-31-2020 Magnesium [Mass/Vol] 2.0 mg/dL Normal 1.6-2.4 [facility] Comment on above: Performed By: #### B MP, MG, ANION, EGFR1, NTBNP, TROPT #### [address] [address] Magnesiumon 01-31-2020 Magnesium [Mass/Vol] 2.0 mg/dL 1.6 - 2.4 mg/dL [place] Comment on above: Performed at [facility] [address] [place] [address] Otheron 01-31-2020 Interpretation and review of laboratory results Abnormal [place] Interpretation and review of laboratory results Abnormal [place] POCT glucoseon 01-31-2020 Glucose [Mass/Vol] 182 mg/dL High 70 - 108 mg/dl [place] Comment on above: Performed at [facility] [address] [place] [address] Interpretation and review of laboratory results Abnormal [place] Glucose [Mass/Vol] 147 mg/dL High 70 - 108 mg/dl [place] Comment on above: Performed at [facility] [address] [place] [address] Interpretation and review of laboratory results Abnormal [place] Glucose [Mass/Vol] 201 mg/dL High 70 - 108 mg/dl [place] Comment on above: Performed at [facility] [address] [place] [address] Interpretation and review of laboratory results Abnormal [place] PROTEIN/CREATININE RATIO URI NEon 01-31-2020 Creatinine [Mass/Vol] 148.9 mg/dl Normal [facility] Comment on above: Performed By: #### P OCGL #### [employer] [facility] [address] [place] [address] Protein (U) [Mass/Vol] 102.8 mg/dL Normal [facility] Comment on above: Performed By: #### P OCGL #### [facility] [address] [place] [address] PROTEIN CREATININE RATIO URINE 0.69 Normal [facility] Comment on above: Performed By: #### P OCGL #### [facility] [address] [place] [address] Protein / creatinine ratio, urineon 01-31-2020 Creatinine, Urine 148.9 mg/dl [place] Prot/Creat Ratio, Ur 0.69 [place] Comment on above: Performed at [facility] [address] [place] [address] Protein (U) [Mass/Vol] 102.8 mg/dL [place] SED RATEon 01-31-2020 SED RATE 29 mm/hr High 0-20 [facility] Comment on above: Performed By: #### B MP, MG, ANION, EGFR1, NTBNP, TROPT #### [facility] [address] [place] [address] Sedimentation Rateon 020 Interpretation and review of laboratory results Abnormal [place] Sed Rate 29 High [place] Comment on above: Performed at [facility] [address] [place] [address] TROPONIN-Ton 01-31-2020 Troponin T.cardiac [Mass/Vol] 0.141 ng/ml Abnormal [facility] Comment on above: Result Comment: <0.0 10 ng/ml Normal > or = 0.010 ng/ml Elevated (99%) Consistent with myocardial damage Cardiac troponin values can be elevated by many disease states in addition to acute ischemia. These include, but are not limited to: chronic renal failure, CHF, CVA, pulmonary embolus, COPD, myocardial trauma/surgery, myocarditis, pericarditis, tachycardia, aortic dissection, amyloidosis, sepsis and strenuous exercise. Serial measurement of troponin is strongly recommended as a first step in determining whether a low level elevation represents an acute or chronic condition. Performed By: #### P OCGL #### [facility] [employer] [facility] [address] [place] [address] Troponin T.cardiac [Mass/Vol] 0.166 ng/ml Abnormal [facility] Comment on above: Result Comment: <0.0 10 ng/ml Normal > or = 0.010 ng/ml Elevated (99%) Consistent with myocardial damage Cardiac troponin values can be elevated by many disease states in addition to acute ischemia. These include, but are not limited to: chronic renal failure, CHF, CVA, pulmonary embolus, COPD, myocardial trauma/surgery, myocarditis, pericarditis, tachycardia, aortic dissection, amyloidosis, sepsis and strenuous exercise. Serial measurement of troponin is strongly recommended as a first step in determining whether a low level elevation represents an acute or chronic condition. Performed By: #### T ROPT ####[facility] [employer] [address] [place] [address] Troponinon 01-31-2020 Interpretation and review of laboratory results Abnormal [place] Troponin T.cardiac [Mass/Vol] 0.141 ng/ml Abnormal [place] Comment on above: <0.010 ng/ml Normal > or = 0.010 ng/ml Elevated (99%) Consistent with myocardial damage Cardiac troponin values can be elevated by many disease states in addition to acute ischemia. These include, but are not limited to: chronic renal failure, CHF, CVA, pulmonary embolus, COPD, myocardial trauma/surgery, myocarditis, pericarditis, tachycardia, aortic dissection, amyloidosis, sepsis and strenuous exercise. Serial measurement of troponin is strongly recommended as a first step in determining whether a low level elevation represents an acute or chronic condition. Performed at [facility] [employer] [facility] [address] [place] [address] Troponin T.cardiac [Mass/Vol] 0.166 ng/ml Abnormal [place] Comment on above: <0.010 ng/ml Normal > or = 0.010 ng/ml Elevated (99%) Consistent with myocardial damage Cardiac troponin values can be elevated by many disease states in addition to acute ischemia. These include, but are not limited to: chronic renal failure, CHF, CVA, pulmonary embolus, COPD, myocardial trauma/surgery, myocarditis, pericarditis, tachycardia, aortic dissection, amyloidosis, sepsis and strenuous exercise. Serial measurement of troponin is strongly recommended as a first step in determining whether a low level elevation represents an acute or chronic condition. Performed at [facility] [address] [place] [address] US RENAL COMPLETEon 01-31-20 US RENAL COMPLETE PROCEDURE: US RENAL COMPLETE CLINICAL INFORMATION: Acute kidney injury TECHNIQUE: Ultrasound of the kidneys and urinary bladder was performed. Grayscale and color images were obtained. COMPARISON: None FINDINGS: The right kidney measures 11.3 x 5.0 x 4.9 cm and the left kidney measures 10.5 x 4.8 x 5.5 cm. Renal cortical thickness is normal bilaterally. An anechoic structure at the mid right kidney measures 0.8 cm. A hypoechoic structure at the inferior left kidney measures 2.5 cm. There is no hydronephrosis or renal calculi on either side. Color Doppler demonstrates expected wave forms in the bilateral renal arteries. Arcuate resistive indices are at the upper limits of normal bilaterally. There is a Astorga catheter in a nondistended urinary bladder which cannot be evaluated on the current study. IMPRESSION: 1. Probable bilateral renal cysts. 2. Astorga catheter in a nondistended urinary bladder. Final report electronically signed by Dr. Federico Allen on 01/31/2020 8:39 AM Interpreted by: Federico Allen MD Signed by: Federico Allen MD 01/31/20 Final result Normal [facility] 1. Probable bilateral renal cysts. 2. Astorga catheter in a nondistended urinary bladder. Final report electronically signed by Dr. Fedeirco Allen on 01/31/2020 8:39 AM [facility], [place] Cristofer, [facility] Incoming Radiant Results From [employer] - 01/31/2020 8:42 AM EDT PROCEDURE: US RENAL COMPLETE CLINICAL INFORMATION: Acute kidney injury TECHNIQUE: Ultrasound of the kidneys and urinary bladder was performed. Grayscale and color images were obtained. COMPARISON: None FINDINGS: The right kidney measures 11.3 x 5.0 x 4.9 cm and the left kidney measures 10.5 x 4.8 x 5.5 cm. Renal cortical thickness is normal bilaterally. An anechoic structure at the mid right kidney measures 0.8 cm. A hypoechoic structure at the inferior left kidney measures 2.5 cm. There is no hydronephrosis or renal calculi on either side. Color Doppler demonstrates expected wave forms in the bilateral renal arteries. Arcuate resistive indices are at the upper limits of normal bilaterally. There is a Astorga catheter in a nondistended urinary bladder which cannot be evaluated on the current study. IMPRESSION: 1. Probable bilateral renal cysts. 2. Astorga catheter in a nondistended urinary bladder. Final report electronically signed by Dr. Federico Allen on 01/31/2020 8:39 AM [place] PROCEDURE: US RENAL COMPLETE CLINICAL INFORMATION: Acute kidney injury TECHNIQUE: Ultrasound of the kidneys and urinary bladder was performed. Grayscale and color images were obtained. COMPARISON: None FINDINGS: The right kidney measures 11.3 x 5.0 x 4.9 cm and the left kidney measures 10.5 x 4.8 x 5.5 cm. Renal cortical thickness is normal bilaterally. An anechoic structure at the mid right kidney measures 0.8 cm. A hypoechoic structure at the inferior left kidney measures 2.5 cm. There is no hydronephrosis or renal calculi on either side. Color Doppler demonstrates expected wave forms in the bilateral renal arteries. Arcuate resistive indices are at the upper limits of normal bilaterally. There is a Astorga catheter in a nondistended urinary bladder which cannot be evaluated on the current study. [place] XR CHEST PORTABLEon 01-31-20 XR CHEST PORTABLE PROCEDURE: XR CHEST PORTABLE CLINICAL INFORMATION: CHF exacerbation, shortness of breath TECHNIQUE: Mobile AP chest radiograph. COMPARISON: Mobile AP chest radiograph 01/30/2020 FINDINGS: A left-sided cardiac device is in stable position. There is moderate stable enlargement of the cardiac silhouette. Pulmonary vessels are congested. Pulmonary interstitium is prominent. There is blunting of the bilateral costophrenic angles. Hazy and reticular opacities are seen at the bilateral lung bases. Degenerative changes in the thoracic spine are poorly visualized. Soft tissues are unremarkable. IMPRESSION: 1. Moderate stable cardiomegaly with pulmonary vascular congestion suspicious for congestive heart failure. 2. Pulmonary edema. 3. Small bilateral pleural effusions with adjacent atelectasis/infiltra te. This report has been created using voice recognition software. It may contain minor errors which are inherent in voice recognition technology. Final report electronically signed by Dr. Federico Allen on 01/31/2020 3:43 PM Interpreted by: Federico Allen MD Signed by: Federico Allen MD 01/31/20 Final result Normal [facility] Cristofer, [facility] Incoming Radiant Results From [employer] - 01/31/2020 3:45 PM EDT PROCEDURE: XR CHEST PORTABLE CLINICAL INFORMATION: CHF exacerbation, shortness of breath TECHNIQUE: Mobile AP chest radiograph. COMPARISON: Mobile AP chest radiograph 01/30/2020 FINDINGS: A left-sided cardiac device is in stable position. There is moderate stable enlargement of the cardiac silhouette. Pulmonary vessels are congested. Pulmonary interstitium is prominent. There is blunting of the bilateral costophrenic angles. Hazy and reticular opacities are seen at the bilateral lung bases. Degenerative changes in the thoracic spine are poorly visualized. Soft tissues are unremarkable. IMPRESSION: 1. Moderate stable cardiomegaly with pulmonary vascular congestion suspicious for congestive heart failure. 2. Pulmonary edema. 3. Small bilateral pleural effusions with adjacent atelectasis/infiltra te. This report has been created using voice recognition software. It may contain minor errors which are inherent in voice recognition technology. Final report electronically signed by Dr. Federico Allen on 01/31/2020 3:43 PM [place] PROCEDURE: XR CHEST PORTABLE CLINICAL INFORMATION: CHF exacerbation, shortness of breath TECHNIQUE: Mobile AP chest radiograph. COMPARISON: Mobile AP chest radiograph 01/30/2020 FINDINGS: A left-sided cardiac device is in stable position. There is moderate stable enlargement of the cardiac silhouette. Pulmonary vessels are congested. Pulmonary interstitium is prominent. There is blunting of the bilateral costophrenic angles. Hazy and reticular opacities are seen at the bilateral lung bases. Degenerative changes in the thoracic spine are poorly visualized. Soft tissues are unremarkable. [place] 1. Moderate stable cardiomegaly with pulmonary vascular congestion suspicious for congestive heart failure. 2. Pulmonary edema. 3. Small bilateral pleural effusions with adjacent atelectasis/infiltra te. This report has been created using voice recognition software. It may contain minor errors which are inherent in voice recognition technology. Final report electronically signed by Dr. Federico Allen on 01/31/2020 3:43 PM [place] ANION GAPon 01-30-2020 Anion gap [Moles/Vol] 10.0 mmol/L Normal 8.0-16.0 [facility] Comment on above: Result Comment: ANIO N GAP = Sodium -(Chloride + CO2) Performed By: #### P OCGL #### [facility] [address] [place] [address] Anion gap [Moles/Vol] 14.0 mmol/L Normal 8.0-16.0 [facility] Comment on above: Result Comment: ANIO N GAP = Sodium -(Chloride + CO2) Performed By: #### P OCGL #### [facility] [address] [place] [address] Anion Gapon 01-30-2020 Anion gap [Moles/Vol] 10.0 mmol/L 8 - 16 meq/L [place] Comment on above: ANION GAP = Sodium - (Chloride + CO2) Performed at [facility] [address] [place] [address] Anion gap [Moles/Vol] 14.0 mmol/L 8 - 16 meq/L [place] Comment on above: ANION GAP = Sodium - (Chloride + CO2) Performed at [facility] [address] [place] [address] BASIC METABOL PANELon 2019 Calcium [Mass/Vol] 9.3 mg/dL Normal 8.5-10.5 [facility] Comment on above: Performed By: #### P OCGL #### [facility] [address] [place] [address] Chloride [Moles/Vol] 96 mmol/L Low 98-111 [facility] Comment on above: Performed By: #### P OCGL #### [facility] [address] [place] [address] CO2 [Moles/Vol] 29 mmol/L Normal 23-33 [facility] Comment on above: Performed By: #### P OCGL #### [facility] [address] [place] [address] Creatinine [Mass/Vol] 2.1 mg/dL High 0.4-1.2 [facility] Comment on above: Performed By: #### P OCGL #### [facility] [address] [place] [address] Glucose [Mass/Vol] 164 mg/dL High 70-108 [facility] Comment on above: Performed By: #### P OCGL #### [facility] [address] [place] [address] Potassium [Moles/Vol] 5.2 mmol/L Normal 3.5-5.2 [facility] Comment on above: Performed By: #### P OCGL #### [facility] [address] [place] [address] Sodium [Moles/Vol] 135 mmol/L Normal 135-145 [facility] Comment on above: Performed By: #### P OCGL #### [facility] [address] [place] [address] Urea nitrogen [Mass/Vol] 37 mg/dL High 7-22 [facility] Comment on above: Performed By: #### P OCGL #### [facility] [address] [place] [address] Calcium [Mass/Vol] 9.4 mg/dL Normal 8.5-10.5 [facility] Comment on above: Performed By: #### P OCGL #### [facility] [address] [place] [address] Chloride [Moles/Vol] 96 mmol/L Low 98-111 [facility] Comment on above: Performed By: #### P OCGL #### [facility] [address] [place] [address] CO2 [Moles/Vol] 26 mmol/L Normal 23-33 [facility] Comment on above: Performed By: #### P OCGL #### [facility] [address] [place] [address] Creatinine [Mass/Vol] 2.0 mg/dL High 0.4-1.2 [facility] Comment on above: Performed By: #### P OCGL #### [facility] [address] [place] [address] Glucose [Mass/Vol] 143 mg/dL High 70-108 [facility] Comment on above: Performed By: #### P OCGL #### [facility] [address] [place] [address] Potassium [Moles/Vol] 6.0 mmol/L Critically high 3.5-5.2 [facility] Comment on above: Performed By: #### P OCGL #### [facility] [address] [place] [address] Sodium [Moles/Vol] 136 mmol/L Normal 135-145 [facility] Comment on above: Performed By: #### P OCGL #### [facility] [address] [place] [address] 10023 Urea nitrogen [Mass/Vol] 35 mg/dL High 7-22 [facility] Comment on above: Performed By: #### P OCGL #### [address] [address] BLOOD CULTUREon 01-30-2020 Bacteria identified Cx Nom (Bld) MICROBIOLOGY REPORT [facility], [address] [place] [address], [id number] PATIENT: SAMREEN DAWSON LOCATION: [address] [place] [address] : 1955 AGE: 64 SEX: F ADM: 01/30/20 Att. Physician: ZIYAD MALLORY Order Id: [id number] Req. Physician: KIM GOLD Source: tcodi-Urzsi-prrflrcd al <5.5oz./set volume Site: Peripheral Vein Collected: 01/30/20 11:05 Current Antibiotics: not stated Antibiotics comment: STATUS OF ORDERED AND REPORTED TESTS BLOOD CULTURE FINAL 02/05/20 BLOOD CULTURE FINAL 02/05/20 03:03 01/31/20 No growth-preliminary 02/05/20 No growth Normal [facility] Basic Metabolic Panelon 01-10 Calcium [Mass/Vol] 9.3 mg/dL 8.5 - 10. 5 mg/dL [place] Comment on above: Performed at [facility] [address] [place] [address] Chloride [Moles/Vol] 96 mmol/L Low 98 - 111 meq/L [place] CO2 [Moles/Vol] 29 mmol/L 23 - 33 meq/L [place] Creatinine [Mass/Vol] 2.1 mg/dL High 0.4 - 1.2 mg/d L [place] Glucose [Mass/Vol] 164 mg/dL High 70 - 108 mg/dL [place], [place] Potassium [Moles/Vol] 5.2 mmol/L 3.5 - 5.2 meq/ L [place] Sodium [Moles/Vol] 135 mmol/L 135 - 145 meq/L [place] Urea nitrogen [Mass/Vol] 37 mg/dL High 7 - 22 mg/dL [place] Calcium [Mass/Vol] 9.4 mg/dL 8.5 - 10. 5 mg/dL [place] Comment on above: Performed at [facility] [address] [place] [address] Chloride [Moles/Vol] 96 mmol/L Low 98 - 111 meq/L [place] CO2 [Moles/Vol] 26 mmol/L 23 - 33 meq/L [place] Creatinine [Mass/Vol] 2 mg/dL High 0.4 - 1.2 mg/d L [place] Glucose [Mass/Vol] 143 mg/dL High 70 - 108 mg/dL [place] Potassium [Moles/Vol] 6.0 mmol/L Critically high 3.5 - 5.2 meq/L [place] Sodium [Moles/Vol] 136 mmol/L 135 - 145 meq/L [place] Urea nitrogen [Mass/Vol] 35 mg/dL High 7 - 22 mg/dL [place] Blood Gas, Arterialon 2019 Lluvia Test Positive [place] Base Excess (Calculated) 3.9 mmol/l High -2.5 - 2.5 mmol/l [place] COLLECTED BY: [id number] [place], [place] Comment on above: Performed at [facility] [address] [place] [address] DEVICE BiPAP [place] HCO3 (Bld) [Moles/Vol] 31 mmol/L High 23 - 28 mmol/l [place] IFIO2 50 [place] Interpretation and review of laboratory results Abnormal [place] Oxygen (Bld) [Partial pressure] 80 mm[Hg] [place] Oxygen saturation in Blood 95 % [place] PCO2 56 High [place] pH, Blood Gas 7.35 [place], [place] Source: L Radial [place] Brain Natriuretic Peptideon 01-30-2020 Natriuretic peptide B (Bld) [Mass/Vol] 79026 pg/mL High 0 - 900 pg/mL [place] Comment on above: Values < 300 pg/ml rule out , or make the probability of heart failure highly unlikely. Values which rule in heart failue are as follows: AGE RANGE <50 years >450 pg/ml 50-75 years >900 pg/ml >75 years >1800 pg/ml Performed at [facility] [address] [place] [address] CBCon 01-30-2020 Erythrocyte distribution width (RBC) [Ratio] 18.3 % High 11.5 - 14.5 % [place] Hematocrit (Bld) [Volume fraction] 35.9 % Low 37 - 47 % [place] Hemoglobin (Bld) [Mass/Vol] 10.2 g/dL Low [place] Interpretation and review of laboratory results Abnormal [place] MCH (RBC) [Entitic mass] 26.5 pg 26 - 33 pg [place] MCHC (RBC) [Mass/Vol] 28.4 g/dL [place] MCV (RBC) [Entitic vol] 93.2 fL 81 - 99 fL [place] Platelet mean volume (Bld) [Entitic vol] 12.0 fL 9.4 - 12.4 fL [place], [place] Comment on above: Performed at [facility] [address] [place] [address] Platelets (Bld) [#/Vol] 136 10*3/uL [place] RBC (Bld) [#/Vol] 3.85 10*6/uL Low [facility] [place], [place] RDW-SD 61.8 fL High 35 - 45 fL [place] WBC (Bld) [#/Vol] 12.5 10*3/uL [place] CBC NO DIFFERENTIALon 2019 Erythrocyte distribution width (RBC) [Ratio] 18.3 % High 11.5-14.5 [facility] Comment on above: Performed By: #### P OCGL #### [address] [address] Hematocrit (Bld) [Volume fraction] 35.9 % Low 37.0-47.0 [facility] Comment on above: Performed By: #### P OCGL #### [address] [address] Hemoglobin (Bld) [Mass/Vol] 10.2 gm/dl Low 12.0-16.0 [facility] Comment on above: Performed By: #### P OCGL #### [address] [address] MCH (RBC) [Entitic mass] 26.5 pg Normal 26.0-33.0 [facility] Comment on above: Performed By: #### P OCGL #### [address] [address] MCHC (RBC) [Mass/Vol] 28.4 gm/dl Low 32.2-35.5 [facility] Comment on above: Performed By: #### P OCGL #### [address] [address] MCV (RBC) [Entitic vol] 93.2 fL Normal 81.0-99.0 [facility] Comment on above: Performed By: #### P OCGL #### [address] [address] Platelet mean volume (Bld) [Entitic vol] 12.0 fL Normal 9.4-12.4 [facility] Comment on above: Performed By: #### P OCGL #### [address] [address] Platelets (Bld) [#/Vol] 136 thou/mm3 Normal 130-400 [facility] Comment on above: Performed By: #### P OCGL #### [address] [address] RBC (Bld) [#/Vol] 3.85 mill/mm3 Low 4.20-5.40 [facility] Comment on above: Performed By: #### P OCGL #### [address] [address] RDW-SD 61.8 fL High 35.0-45.0 [facility] Comment on above: Performed By: #### P OCGL #### [address] [address] WBC (Bld) [#/Vol] 12.5 thou/mm3 High 4.8-10.8 [facility] Comment on above: Performed By: #### P OCGL #### [address] [address] [facility] CK [Catalytic activity/Vol] 71 U/L Normal 30-135 [facility] Comment on above: Performed By: #### P OCGL #### [address] [address] Total CK 71 U/L 30 - 135 U/L [place] Comment on above: Performed at [facility] [address] [place] [address] COVID-19on 01-30-2020 COVID-19 BY RT-PCR NOT DETECTED Normal NOT DETECTED [facility] Comment on above: Result Comment: This test has been authorized by FDA under an Emergency Use Authorization (EUA). This test is only authorized for the duration of the time of declaration that circumstances exist justifying the authorization of the emergency use of in vitro diagnostic testing for detection of the SARS-CoV-2 virus and/or diagnosis of COVID-19 infection under section 564 (b)(1) of the Act, 21 U.S.C. 360nnn-3 (b) (1), unless the authorization is terminated or revoked sooner. METHODOLOGY: RT-PCR Performed By: #### H H #### [facility] [address] [place] [address] SARS-CoV-2, PCR NOT DETECTED NOT DETECTED [place] Comment on above: This test has been a uthorized by FDA under an Emergency Use Authorization (EUA). This test is only authorized for the duration of the time of declaration that circumstances exist justifying the authorization of the emergency use of in vitro diagnostic testing for detection of the SARS-CoV-2 virus and/or diagnosis of COVID-19 infection under section 564 (b)(1) of the Act, 21 U.S.C. 360nnn-3 (b) (1), unless the authorization is terminated or revoked sooner. METHODOLOGY: RT-PCR Performed at [facility] [address] [place] [address] Electrolytes urine randomon 01-30-2020 Chloride, Urine 33 meq/l [place], [place] Comment on above: Performed at [facility] [address] [place] [address] Potassium, Urine 92.1 meq/l [place], [place] Sodium (U) [Moles/Vol] mmol/L meq/l [place] GFR, ESTIMATEDon 01-30-2020 GFR/1.73 sq M.predicted MDRD (S/P/Bld) [Vol rate/Area] 24 ml/min/1.73m2 Abnormal [facility] Comment on above: Result Comment: Mitchell vega Description GFR, ml/min/1.73 m2 - At increased risk > or = 60 (with chronic kidney disease risk factors) 1 Normal or increased GFR > or = 90 2 Mildly or decreased GFR 60 - 89 3 Moderately decreased GFR 30 - 59 4 Severely decreased GFR 15 - 29 5 Kidney failure <15 (or dialysis) Estimated GFR calculated using abbreviated MDRD formula as recommended by National Kidney Foundation. Calculation based upon serum creatinine and adjusted for age, gender & race. Lash[place]. Internal Med., Vol. 139 (2) pg 137-147. Performed By: #### P OCGL #### [facility] [address] [place] [address] GFR/1.73 sq M.predicted MDRD (S/P/Bld) [Vol rate/Area] 25 ml/min/1.73m2 Abnormal [facility] Comment on above: Result Comment: Stag e Description GFR, ml/min/1.73 m2 - At increased risk > or = 60 (with chronic kidney disease risk factors) 1 Normal or increased GFR > or = 90 2 Mildly or decreased GFR 60 - 89 3 Moderately decreased GFR 30 - 59 4 Severely decreased GFR 15 - 29 5 Kidney failure <15 (or dialysis) Estimated GFR calculated using abbreviated MDRD formula as recommended by National Kidney Foundation. Calculation based upon serum creatinine and adjusted for age, gender & race. [place]ash[place]. Internal Med., Vol. 139 (2) pg 137-147. Performed By: #### P OCGL #### [facility] [address] [place] [address] GLUCOSE POCon 01-30-2020 Glucose [Mass/Vol] 166 mg/dL [facility] [address] Comment on above: Performed By: #### P OCGL #### [address] [address] Glucose [Mass/Vol] 149 mg/dL [facility] [address] [facility] Comment on above: Performed By: #### B MP, MG, ANION, EGFR1, NTBNP, TROPT #### [address] [address] Glucose [Mass/Vol] 155 mg/dL [facility] [address] Comment on above: Performed By: #### H H #### [address] [address] Glomerular Filtration Rate, Estimatedon 01-30-2020 Est, Glom Filt Rate 24 Abnormal ml/min/1.73m2 [facility] [place], [place] Comment on above: Stage Description GF R, ml/min/1.73 m2 - At increased risk > or = 60 (with chronic kidney disease risk factors) 1 Normal or increased GFR > or = 90 2 Mildly or decreased GFR 60 - 89 3 Moderately decreased GFR 30 - 59 4 Severely decreased GFR 15 - 29 5 Kidney failure <15 (or dialysis) Estimated GFR calculated using abbreviated MDRD formula as recommended by National Kidney Foundation. Calculation based upon serum creatinine and adjusted for age, gender & race. Lash[place]. Internal Med., Vol. 139 (2) pg 137-147. Performed at [facility] [address] [place] [address] Est, Glom Filt Rate 25 Abnormal ml/min/1.73m2 [place], [place] Comment on above: Stage Description GF R, ml/min/1.73 m2 - At increased risk > or = 60 (with chronic kidney disease risk factors) 1 Normal or increased GFR > or = 90 2 Mildly or decreased GFR 60 - 89 3 Moderately decreased GFR 30 - 59 4 Severely decreased GFR 15 - 29 5 Kidney failure <15 (or dialysis) Estimated GFR calculated using abbreviated MDRD formula as recommended by National Kidney Foundation. Calculation based upon serum creatinine and adjusted for age, gender & race. [place]ash[place]. Internal Med., Vol. 139 (2) pg 137-147. Performed at [facility] [address] [place] [address] Interpretation and review of laboratory results Abnormal [place] HEMOGLOBIN A1Con 01-30-2020 HbA1c (Bld) [Mass fraction] 87 mg/dL Normal 70-126 [facility] Comment on above: Performed By: #### P OCGL #### [facility] [address] [place] [address] HbA1c (Bld) [Mass fraction] 4.9 % Normal 4.4-6.4 [facility] Comment on above: Performed By: #### P OCGL #### [facility] [employer] [address] [place] [address] HEPATIC FUNCTION PANELon Albumin [Mass/Vol] 3.7 g/dL Normal 3.5-5.1 [facility] Comment on above: Performed By: #### P OCGL #### [facility] [address] [place] [address] ALP [Catalytic activity/Vol] 70 U/L Normal 38-126 [facility] Comment on above: Performed By: #### P OCGL #### [facility] [address] [place] [address] ALT [Catalytic activity/Vol] 46 U/L Normal 11-66 [facility] Comment on above: Performed By: #### P OCGL #### [facility] [address] [place] [address] AST [Catalytic activity/Vol] 56 U/L High 5-40 [facility] Comment on above: Performed By: #### P OCGL #### [facility] [address] [place] [address] Bilirubin [Mass/Vol] 0.3 mg/dL Normal 0.0-0.3 [facility] Comment on above: Performed By: #### P OCGL #### [facility] [address] [place] [address] Bilirubin Ql (U) 0.9 mg/dL Normal 0.3-1.2 [facility] Comment on above: Performed By: #### P OCGL #### [facility] [address] [place] [address] Protein [Mass/Vol] 7.1 g/dL Normal 6.1-8.0 [facility] Comment on above: Performed By: #### P OCGL #### [facility] [address] [place] [address] Hemoglobin A1con 01-30-2020 Glucose [Mass/Vol] 87 mg/dL 70 - 126 mg/dL [place] Comment on above: Performed at [facility] [address] [place] [address] HbA1c (Bld) [Mass fraction] 4.9 % 4.4 - 6.4 % [place] Hepatic Function Panelon Albumin [Mass/Vol] 3.7 g/dL 3.5 - 5.1 g/dL [place], [place] ALP [Catalytic activity/Vol] 70 U/L 38 - 126 U/L [place] ALT [Catalytic activity/Vol] 46 U/L 11 - 66 U/L [place] AST [Catalytic activity/Vol] 56 U/L High 5 - 40 U/L [place] Bilirubin Ql (U) 0.9 mg/dL 0.3 - 1.2 mg/dL [place] Bilirubin.direct [Mass/Vol] 0.3 mg/dL 0 - 0.3 mg/dL [place] Protein [Mass/Vol] 7.1 g/dL 6.1 - 8 g/dL [place], [place] Comment on above: Performed at [facility] [address] [place] [address] ISTAT BLOOD GASon 01-30-2020 LLUVIA'S TEST Positive Normal [facility] Comment on above: Performed By: #### B MP, MG, ANION, EGFR1, NTBNP, TROPT #### [facility] [email or web address] [address] [place] [address] BASE EXCESS 3.9 mmol/l High -2.5-2.5 [facility] Comment on above: Performed By: #### B MP, MG, ANION, EGFR1, NTBNP, TROPT #### [facility] [email or web address] [address] [place] [address] COLLECTED BY [id number] [facility] Comment on above: Performed By: #### B MP, MG, ANION, EGFR1, NTBNP, TROPT #### [facility] [employer] [address] [address] DEVICE BiPAP [facility] Comment on above: Performed By: #### B MP, MG, ANION, EGFR1, NTBNP, TROPT #### [facility] [email or web address] [address] [place] [address] FIO2 50 [facility] Comment on above: Performed By: #### B MP, MG, ANION, EGFR1, NTBNP, TROPT #### [facility] [employer] [address] [place] [address] HCO3 (Bld) [Moles/Vol] 31 mmol/L High 23-28 [facility] Comment on above: Performed By: #### B MP, MG, ANION, EGFR1, NTBNP, TROPT #### [facility] [address] [place] [address] Oxygen (Bld) [Partial pressure] 80 mm[Hg] Normal 71-104 [facility] Comment on above: Performed By: #### B MP, MG, ANION, EGFR1, NTBNP, TROPT #### [facility] [email or web address] [address] [place] [address] Oxygen saturation in Blood 95 % Normal [facility] Comment on above: Performed By: #### B MP, MG, ANION, EGFR1, NTBNP, TROPT #### [facility] [address] [place] [address] PCO2 56 mmhg High 35-45 [facility] Comment on above: Performed By: #### B MP, MG, ANION, EGFR1, NTBNP, TROPT #### [facility] [address] [place] [address] pH (Bld) 7.35 [pH] Normal 7.35-7.45 [facility] Comment on above: Performed By: #### B MP, MG, ANION, EGFR1, NTBNP, TROPT #### [facility] [address] [place] [address] SITE L Radial Normal [facility] Comment on above: Performed By: #### B MP, MG, ANION, EGFR1, NTBNP, TROPT #### [address] [address] LACTIC ACID, SEPSISon 2019 LACTIC ACID, SEPSIS 1.0 mmol/L Normal 0.5-1.9 [facility] Comment on above: Performed By: #### B MP, MG, ANION, EGFR1, NTBNP, TROPT #### [address] [address] LDon 01-30-2020 LD 359 U/L High 100-190 [facility] Comment on above: Performed By: #### P OCGL #### [address] [address] Lactate dehydrogenaseon 01-10 LD 359 U/L High 100 - 190 U/L [place] Comment on above: Performed at [facility] [address] [place] [address] Lactate, Sepsison 01-30-2020 Lactic Acid, Sepsis 1 mmol/L 0.5 - 1. 9 mmol/L [place] Comment on above: Performed at [facility] [address] [place] [address] MAGNESIUMon 01-30-2020 Magnesium [Mass/Vol] 2.0 mg/dL Normal 1.6-2.4 [facility] Comment on above: Performed By: #### P OCGL #### [address] [address] Magnesiumon 01-30-2020 Magnesium [Mass/Vol] 2.0 mg/dL 1.6 - 2.4 mg/dL [place] Comment on above: Performed at [facility] [employer] [facility] [address] [place] [address] NT PRO-B NATRIURETIC PEPTIDE on 01-30-2020 Natriuretic peptide B (Bld) [Mass/Vol] 49472.0 pg/mL High 0.0-900.0 [facility] Comment on above: Result Comment: Valu es < 300 pg/ml rule out , or make the probability of heart failure highly unlikely. Values which rule in heart failue are as follows: AGE RANGE <50 years >450 pg/ml 50-75 years >900 pg/ml >75 years >1800 pg/ml Performed By: #### P OCGL #### [address] [address] Otheron 01-30-2020 Interpretation and review of laboratory results Abnormal [place] Interpretation and review of laboratory results Abnormal [place] Interpretation and review of laboratory results Abnormal [place] POCT glucoseon 01-30-2020 Glucose [Mass/Vol] 166 mg/dL High 70 - 108 mg/dl [place] Comment on above: Performed at [facility] [employer] [facility] [address] [place] [address] Interpretation and review of laboratory results Abnormal [place] Glucose [Mass/Vol] 149 mg/dL High 70 - 108 mg/dl [place] Comment on above: Performed at [facility] [address] [place] [address] Interpretation and review of laboratory results Abnormal [place] Glucose [Mass/Vol] 155 mg/dL High 70 - 108 mg/dl [place], [place] Comment on above: Performed at [facility] [address] [place] [address] Interpretation and review of laboratory results Abnormal [place] PROCALCITONINon 01-30-2020 PROCALCITONIN 0.35 ng/mL High 0.01-0.09 [facility] Comment on above: Result Comment: Susp ected Sepsis: <0.50 ng/mL Low likelihood of sepsis. 0.50-2.00 ng/mL Increased likelihood of sepsis. Antibiotics encouraged. >2.00 ng/mL High risk of sepsis/shock. Antibiotics strongly encouraged. Suspected Lower Resp Tract Infections: <0.24 ng/mL Low likelihood of bacterial infection. >0.24 ng/mL Increased likelihood of bacterial infection. Antibiotics encouraged. With successful antibiotic therapy, PCT levels should decrease rapidly. (Half-life of 24 to 36 hours.) Procalcitonin values from samples collected within the first 6 hours of systemic infection may still be low. Retesting may be indicated. Values from day 1 and day 4 can be entered into the Change in Procalcitonin Calculator (www.naflkd-eeh-pqqlqgohlm.fanatix) to determine the patient's Mortality Risk Prognosis. In healthy neonates, plasma Procalcitonin (PCT) concentrations increase gradually after , reaching peak values at about 24 hours of age then decrease to normal values below 0.5 ng/mL by 48-72 hours of age. Performed By: #### P OCGL #### [facility] [employer] [facility] [employer] [address] [place] [address] Procalcitoninon 01-30-2020 Procalcitonin 0.35 ng/mL High 0.01 - 0.09 ng/mL [place] Comment on above: Suspected Sepsis: <0.50 ng/mL Low likelihood of sepsis. 0.50-2.00 ng/mL Increased likelihood of sepsis. Antibiotics encouraged. >2.00 ng/mL High risk of sepsis/shock. Antibiotics strongly encouraged. Suspected Lower Resp Tract Infections: <0.24 ng/mL Low likelihood of bacterial infection. >0.24 ng/mL Increased likelihood of bacterial infection. Antibiotics encouraged. With successful antibiotic therapy, PCT levels should decrease rapidly. (Half-life of 24 to 36 hours.) Procalcitonin values from samples collected within the first 6 hours of systemic infection may still be low. Retesting may be indicated. Values from day 1 and day 4 can be entered into the Change in Procalcitonin Calculator (www.rrnlmf-oks-vnmvwjhkes.fanatix) to determine the patient's Mortality Risk Prognosis. In healthy neonates, plasma Procalcitonin (PCT) concentrations increase gradually after , reaching peak values at about 24 hours of age then decrease to normal values below 0.5 ng/mL by 48-72 hours of age. Performed at [facility] [address] [place] [address] TROPONIN-Ton 01-30-2020 Troponin T.cardiac [Mass/Vol] 0.278 ng/ml Abnormal [facility] Comment on above: Result Comment: <0.0 10 ng/ml Normal > or = 0.010 ng/ml Elevated (99%) Consistent with myocardial damage Cardiac troponin values can be elevated by many disease states in addition to acute ischemia. These include, but are not limited to: chronic renal failure, CHF, CVA, pulmonary embolus, COPD, myocardial trauma/surgery, myocarditis, pericarditis, tachycardia, aortic dissection, amyloidosis, sepsis and strenuous exercise. Serial measurement of troponin is strongly recommended as a first step in determining whether a low level elevation represents an acute or chronic condition. Performed By: #### T ROPT ####[facility] [id number] [place] [address] Troponinon 01-30-2020 Interpretation and review of laboratory results Abnormal [place] Troponin T.cardiac [Mass/Vol] 0.278 ng/ml Abnormal [place] Comment on above: <0.010 ng/ml Normal > or = 0.010 ng/ml Elevated (99%) Consistent with myocardial damage Cardiac troponin values can be elevated by many disease states in addition to acute ischemia. These include, but are not limited to: chronic renal failure, CHF, CVA, pulmonary embolus, COPD, myocardial trauma/surgery, myocarditis, pericarditis, tachycardia, aortic dissection, amyloidosis, sepsis and strenuous exercise. Serial measurement of troponin is strongly recommended as a first step in determining whether a low level elevation represents an acute or chronic condition. Performed at [facility] [employer] [facility] [address] [place] [address] URINALYSIS W/ MICROon 2019 CASTS 2 0-4 C.GRAN Normal [facility] Comment on above: Performed By: #### B MP, MG, ANION, EGFR1, NTBNP, TROPT #### [facility] [employer] [facility] [address] [place] [address] Color (U) DARK YELLOW Normal YELLOW-STRAW [facility] Comment on above: Performed By: #### B MP, MG, ANION, EGFR1, NTBNP, TROPT #### [facility] [employer] [address] [address] RBC > 200 Normal 0-2/hpf [facility] Comment on above: Performed By: #### B MP, MG, ANION, EGFR1, NTBNP, TROPT #### [address] [address] Bacteria LM.HPF (Urine sed) [#/Area] NONE SEEN Normal FEW/NONE SEEN [facility] Comment on above: Performed By: #### B MP, MG, ANION, EGFR1, NTBNP, TROPT #### [address] [address] Casts LM.LPF (Urine sed) [#/Area] >15 HYALINE Normal NONE SEEN [facility] Comment on above: Performed By: #### B MP, MG, ANION, EGFR1, NTBNP, TROPT #### [address] [address] Crystals LM Nom (Urine sed) NONE SEEN Normal NONE SEEN [facility] Comment on above: Performed By: #### B MP, MG, ANION, EGFR1, NTBNP, TROPT #### [place] [address] EPITHELIAL 3 /hpf Normal 3-5/hpf [facility] Comment on above: Performed By: #### B MP, MG, ANION, EGFR1, NTBNP, TROPT #### [address] [address] MISCELLANEOUS 2 NONE SEEN Normal [facility] Comment on above: Performed By: #### B MP, MG, ANION, EGFR1, NTBNP, TROPT #### [address] [address] RENAL EPITHELIAL NONE SEEN Normal NONE SEEN [facility] Comment on above: Performed By: #### B MP, MG, ANION, EGFR1, NTBNP, TROPT #### [address] [address] WBC 15 /hpf Normal 0-4/hpf [facility] Comment on above: Performed By: #### B MP, MG, ANION, EGFR1, NTBNP, TROPT #### [facility] [address] [place] [address] Yeast LM Ql (Urine sed) NONE SEEN Normal NONE SEEN [facility] Comment on above: Performed By: #### B MP, MG, ANION, EGFR1, NTBNP, TROPT #### [facility] [address] [place] [address] Bilirubin [Mass/Vol] Negative [facility] NE[facility] Comment on above: Performed By: #### B MP, MG, ANION, EGFR1, NTBNP, TROPT #### [facility] [address] [place] [address] BLOOD LARGE Abnormal NEGATIVE [facility] Comment on above: Performed By: #### B MP, MG, ANION, EGFR1, NTBNP, TROPT #### [facility] [address] [place] [address] Character (U) TURBID Abnormal CLR-SL.CLOUD [facility] Comment on above: Performed By: #### B MP, MG, ANION, EGFR1, NTBNP, TROPT #### [facility] [address] [place] [address] Glucose [Mass/Vol] Negative Normal NEGATIVE [facility] Comment on above: Performed By: #### B MP, MG, ANION, EGFR1, NTBNP, TROPT #### [facility] [address] [place] [address] Nitrite Ql (U) Negative Normal NEGATIVE [facility] Comment on above: Performed By: #### B MP, MG, ANION, EGFR1, NTBNP, TROPT #### [facility] [address] [place] [address] pH (Bld) 5.0 Normal 5.0 - 9.0 [facility] Comment on above: Performed By: #### B MP, MG, ANION, EGFR1, NTBNP, TROPT #### [facility] [address] [place] [address] Specific gravity (U) [Rel density] 1.016 Normal 1.002-1.030 [facility] Comment on above: Performed By: #### B MP, MG, ANION, EGFR1, NTBNP, TROPT #### [address] [address] Urobilinogen Qn (U) 0.2 eu/dl Normal 0.0 - 1.0 [facility] Comment on above: Performed By: #### B MP, MG, ANION, EGFR1, NTBNP, TROPT #### [address] [address] WBC (Bld) [#/Vol] MODERATE Abnormal NEGATIVE [facility] Comment on above: Performed By: #### B MP, MG, ANION, EGFR1, NTBNP, TROPT #### [address] [address] Ketones Ql (U) Negative Normal NEGATIVE [facility], [place] Comment on above: Performed By: #### B MP, MG, ANION, EGFR1, NTBNP, TROPT #### [address] [address] Protein (U) [Mass/Vol] 100 mg/dL Abnormal NEGATIVE [facility], [place] Comment on above: Performed By: #### B MP, MG, ANION, EGFR1, NTBNP, TROPT #### [address] [address] URINE ELECTROLYTESon 020 Chloride [Moles/Vol] 33.0 meq/l Normal [facility] Comment on above: Performed By: #### P OCGL #### [address] [address] Potassium [Moles/Vol] 92.1 meq/l Normal [facility] Comment on above: Performed By: #### P OCGL #### [address] [address] Sodium (U) [Moles/Vol] mmol/L Normal [facility] Comment on above: Performed By: #### P OCGL #### [address] [address] Urinalysis with microscopico n 01-30-2020 Bacteria, UA NONE SEEN FEW/NONE SEEN [place] Bilirubin Urine Negative NEGATIVE [place] Blood, Urine LARGE Abnormal NEGATIVE [place] Casts >15 HYALINE NONE SEEN /lpf [place] Casts 0-4 C.GRAN /lpf [place] Character, Urine TURBID Abnormal CLR-SL.CLOUD [place] Color, UA DARK YELLOW YELLOW-STRAW [place] Crystals LM Nom (Urine sed) NONE SEEN NONE SEEN [place] Epithelial Cells, UA 3-5 3-5/hpf /hpf [place] Glucose Ql (U) Negative NEGATIVE mg/dl [place] Interpretation and review of laboratory results Abnormal [place] Leukocyte esterase Test strip Ql (U) MODERATE Abnormal NEGATIVE [place] Miscellaneous Lab Test Result NONE SEEN [place] Comment on above: Performed at [facility] [address] [place] [address] Nitrite, Urine Negative NEGATIVE [place], [place] pH, UA 5.0 [place] RBC (U) [#/Vol] /uL 0-2/hpf /hpf [place] Renal Epithelial, UA NONE SEEN NONE SEEN [place], [place] Specific [place], UA 1.016 [place] Urobilinogen, Urine 0.2 [place] WBC, UA 15-25 0-4/hpf /hpf [place], [place] Yeast, UA NONE SEEN NONE SEEN [place] XR CHEST PORTABLEon 01-30-20 XR CHEST PORTABLE PROCEDURE: XR CHEST PORTABLE CLINICAL INFORMATION: hypoxia. COMPARISON: Chest x-ray dated 25 January 2020 TECHNIQUE: AP upright view of the chest. FINDINGS: There is mild cardiomegaly. status post pacemaker placement. There is bilateral pulmonary vascular redistribution consistent with congestive heart failure versus fluid overload. There is slightly increased density at both lung bases. IMPRESSION: 1. Cardiomegaly, status post pacemaker placement. 2. Increased pulmonary vascularity suggestive of congestive heart failure versus fluid overload, more prominent than on previous study dated 25 January 2020. 3. Increased density in the right and left lower lobes. This report has been created using voice recognition software. It may contain minor errors which are inherent in voice recognition technology. Final report electronically signed by DR VICKY WATSON on 01/30/2020 11:19 AM Interpreted by: Vicky Watson MD Signed by: Vicky Watson MD 01/30/20 Final result Normal [facility], [facility] Incoming Radiant Results From Pingercribe/Pacs - 01/30/2020 11:21 AM EDT PROCEDURE: XR CHEST PORTABLE CLINICAL INFORMATION: hypoxia. COMPARISON: Chest x-ray dated 25 January 2020 TECHNIQUE: AP upright view of the chest. FINDINGS: There is mild cardiomegaly. status post pacemaker placement. There is bilateral pulmonary vascular redistribution consistent with congestive heart failure versus fluid overload. There is slightly increased density at both lung bases. IMPRESSION: 1. Cardiomegaly, status post pacemaker placement. 2. Increased pulmonary vascularity suggestive of congestive heart failure versus fluid overload, more prominent than on previous study dated 25 January 2020. 3. Increased density in the right and left lower lobes. This report has been created using voice recognition software. It may contain minor errors which are inherent in voice recognition technology. Final report electronically signed by DR VICKY WATSON on 01/30/2020 11:19 AM [facility] [place] PROCEDURE: XR CHEST PORTABLE CLINICAL INFORMATION: hypoxia. COMPARISON: Chest x-ray dated 25 January 2020 TECHNIQUE: AP upright view of the chest. FINDINGS: There is mild cardiomegaly. status post pacemaker placement. There is bilateral pulmonary vascular redistribution consistent with congestive heart failure versus fluid overload. There is slightly increased density at both lung bases. Informaat [place] 1. Cardiomegaly, status post pacemaker placement. 2. Increased pulmonary vascularity suggestive of congestive heart failure versus fluid overload, more prominent than on previous study dated 25 January 2020. 3. Increased density in the right and left lower lobes. This report has been created using voice recognition software. It may contain minor errors which are inherent in voice recognition technology. Final report electronically signed by DR VICKY WATSON on 01/30/2020 11:19 AM [place] ANION GAPon 01-27-2020 Anion gap [Moles/Vol] 9.0 mmol/L Normal 8.0-16.0 [facility] Comment on above: Result Comment: ANIO N GAP = Sodium -(Chloride + CO2) Performed By: #### B MP, MG, ANION, EGFR1, NTBNP, TROPT #### [facility] [address] [address] Anion Gapon 01-27-2020 Anion gap [Moles/Vol] 9.0 mmol/L 8 - 16 meq/L [place], [place] Comment on above: ANION GAP = Sodium - (Chloride + CO2) Performed at [facility] [address] [place] [address] BASIC METABOL PANELon 2019 Calcium [Mass/Vol] 9.4 mg/dL Normal 8.5-10.5 [facility] Comment on above: Performed By: #### B MP, MG, ANION, EGFR1, NTBNP, TROPT #### [facility] [employer] [address] [address] Chloride [Moles/Vol] 95 mmol/L Low 98-111 [facility] Comment on above: Performed By: #### B MP, MG, ANION, EGFR1, NTBNP, TROPT #### [facility] [employer] [address] [address] CO2 [Moles/Vol] 32 mmol/L Normal 23-33 [facility] Comment on above: Performed By: #### B MP, MG, ANION, EGFR1, NTBNP, TROPT #### [facility] [address] [address] Creatinine [Mass/Vol] 0.9 mg/dL Normal 0.4-1.2 [facility] Comment on above: Performed By: #### B MP, MG, ANION, EGFR1, NTBNP, TROPT #### [facility] [address] [place] [address] Glucose [Mass/Vol] 119 mg/dL High 70-108 [facility] Comment on above: Performed By: #### B MP, MG, ANION, EGFR1, NTBNP, TROPT #### [facility] [employer] [address] [place] [address] Potassium [Moles/Vol] 4.3 mmol/L Normal 3.5-5.[address] [facility] Comment on above: Performed By: #### B MP, MG, ANION, EGFR1, NTBNP, TROPT #### [facility] [employer] [facility] [address] [place] [address] Sodium [Moles/Vol] 136 mmol/L Normal 135-145 [facility] Comment on above: Performed By: #### B MP, MG, ANION, EGFR1, NTBNP, TROPT #### [facility] [address] [place] [address] Urea nitrogen [Mass/Vol] 15 mg/dL Normal 7-22 [facility] Comment on above: Performed By: #### B MP, MG, ANION, EGFR1, NTBNP, TROPT #### [facility] [address] [place] [address] Basic Metabolic Panelon 01-09 Calcium [Mass/Vol] 9.4 mg/dL 8.5 - 10. 5 mg/dL [place] Comment on above: Performed at [facility] [address] [place] [address] Chloride [Moles/Vol] 95 mmol/L Low 98 - 111 meq/L [place] CO2 [Moles/Vol] 32 mmol/L 23 - 33 meq/L [place] Creatinine [Mass/Vol] 0.9 mg/dL 0.4 - 1.2 mg/d L [place] Glucose [Mass/Vol] 119 mg/dL High 70 - 108 mg/dL [place], [place] Potassium [Moles/Vol] 4.3 mmol/L 3.5 - 5.2 meq/ L [place] Sodium [Moles/Vol] 136 mmol/L 135 - 145 meq/L [place], [place] Urea nitrogen [Mass/Vol] 15 mg/dL 7 - 22 mg/dL [place] GFR, ESTIMATEDon 01-27-2020 GFR/1.73 sq M.predicted MDRD (S/P/Bld) [Vol rate/Area] 63 ml/min/1.73m2 Abnormal [facility] Comment on above: Result Comment: Stag e Description GFR, ml/min/1.73 m2 - At increased risk > or = 60 (with chronic kidney disease risk factors) 1 Normal or increased GFR > or = 90 2 Mildly or decreased GFR 60 - 89 3 Moderately decreased GFR 30 - 59 4 Severely decreased GFR 15 - 29 5 Kidney failure <15 (or dialysis) Estimated GFR calculated using abbreviated MDRD formula as recommended by National Kidney Foundation. Calculation based upon serum creatinine and adjusted for age, gender & race. Lashonda. Internal Med., Vol. 139 (2) pg 137-147. Performed By: #### B MP, MG, ANION, EGFR1, NTBNP, TROPT #### [facility] [address] [place] [address] Glomerular Filtration Rate, Estimatedon 01-27-2020 Est, Glom Filt Rate 63 Abnormal ml/min/1.73m2 [facility], [place] Comment on above: Stage Description GF R, ml/min/1.73 m2 - At increased risk > or = 60 (with chronic kidney disease risk factors) 1 Normal or increased GFR > or = 90 2 Mildly or decreased GFR 60 - 89 3 Moderately decreased GFR 30 - 59 4 Severely decreased GFR 15 - 29 5 Kidney failure <15 (or dialysis) Estimated GFR calculated using abbreviated MDRD formula as recommended by National Kidney Foundation. Calculation based upon serum creatinine and adjusted for age, gender & race. Lash[place]. Internal Med., Vol. 139 (2) pg 137-147. Performed at [facility] [address] [place] [address] HGB,HCTon 01-27-2020 Hematocrit (Bld) [Volume fraction] 31.1 % Low 37.0-47.0 [facility] Comment on above: Performed By: #### H H ####[employer] [address] [place] [address] Hemoglobin (Bld) [Mass/Vol] 9.2 gm/dl Low 12.0-16.0 [facility] Comment on above: Performed By: #### H H ####[employer] [address] [place] [address] Hematocrit (Bld) [Volume fraction] 33.1 % Low 37.0-47.0 [facility] Comment on above: Performed By: #### B MP, MG, ANION, EGFR1, NTBNP, TROPT #### [facility] [address] [place] [address] Hemoglobin (Bld) [Mass/Vol] 9.7 gm/dl Low 12.0-16.0 [facility] Comment on above: Performed By: #### B MP, MG, ANION, EGFR1, NTBNP, TROPT #### [facility] [address] [address] Hemoglobin and hematocrit, b loodon 01-27-2020 Hematocrit (Bld) [Volume fraction] 31.1 % Low 37 - 47 % [place] Comment on above: Performed at [facility] [employer] [facility] [address] [place] [address] Hemoglobin (Bld) [Mass/Vol] 9.2 g/dL Low [place] Interpretation and review of laboratory results Abnormal [place] Hematocrit (Bld) [Volume fraction] 33.1 % Low 37 - 47 % [place] Comment on above: Performed at [facility] [employer] [facility] [address] [place] [address] Hemoglobin (Bld) [Mass/Vol] 9.7 g/dL Low [place] Interpretation and review of laboratory results Abnormal [place] MAGNESIUMon 01-27-2020 Magnesium [Mass/Vol] 1.7 mg/dL Normal 1.6-2.4 [facility] Comment on above: Performed By: #### B MP, MG, ANION, EGFR1, NTBNP, TROPT #### [facility] [address] [address] Magnesiumon 01-27-2020 Magnesium [Mass/Vol] 1.7 mg/dL 1.6 - 2.4 mg/dL [place] Comment on above: Performed at [facility] [address] [place] [address] Otheron 01-27-2020 Interpretation and review of laboratory results Abnormal [place] ANION GAPon 01-26-2020 Anion gap [Moles/Vol] 8.0 mmol/L Normal 8.0-16.0 [facility] Comment on above: Result Comment: ANIO N GAP = Sodium -(Chloride + CO2) Performed By: #### H H #### [facility] [address] [place] [address] Anion Gapon 01-26-2020 Anion gap [Moles/Vol] 8.0 mmol/L 8 - 16 meq/L [place] Comment on above: ANION GAP = Sodium - (Chloride + CO2) Performed at [facility] [address] [place] [address] BASIC METABOL PANELon 2019 Calcium [Mass/Vol] 9.2 mg/dL Normal 8.5-10.5 [facility] Comment on above: Performed By: #### H H #### [facility] [address] [place] [address] Chloride [Moles/Vol] 94 mmol/L Low 98-111 [facility] Comment on above: Performed By: #### H H #### [facility] [address] [place] [address] CO2 [Moles/Vol] 34 mmol/L High 23-33 [facility] Comment on above: Performed By: #### H H #### [facility] [address] [place] [address] Creatinine [Mass/Vol] 0.8 mg/dL Normal 0.4-1.2 [facility] Comment on above: Performed By: #### H H #### [facility] [address] [address] Glucose [Mass/Vol] 98 mg/dL Normal 70-108 [facility] Comment on above: Performed By: #### H H #### [facility] [address] [place] [address] Potassium [Moles/Vol] 4.3 mmol/L Normal 3.5-5.2 [facility] Comment on above: Performed By: #### H H #### [facility] [address] [place] [address] Sodium [Moles/Vol] 136 mmol/L Normal 135-145 [facility] Comment on above: Performed By: #### H H #### [employer] [facility] [address] [place] [address] Urea nitrogen [Mass/Vol] 20 mg/dL Normal 7-22 [facility] Comment on above: Performed By: #### H H #### [facility] [address] [place] [address] Basic Metabolic Panelon 01-09 Calcium [Mass/Vol] 9.2 mg/dL 8.5 - 10. 5 mg/dL [place] Comment on above: Performed at [facility] [address] [place] [address] Chloride [Moles/Vol] 94 mmol/L Low 98 - 111 meq/L [place] CO2 [Moles/Vol] 34 mmol/L High 23 - 33 meq/L [place] Creatinine [Mass/Vol] 0.8 mg/dL 0.4 - 1.2 mg/d L [place] Glucose [Mass/Vol] 98 mg/dL 70 - 108 mg/dL [place], [place] Potassium [Moles/Vol] 4.3 mmol/L 3.5 - 5.2 meq/ L [place] Sodium [Moles/Vol] 136 mmol/L 135 - 145 meq/L [place] Urea nitrogen [Mass/Vol] 20 mg/dL 7 - 22 mg/dL [place] CBC Auto Differentialon 01-09 Basophils (Bld) [#/Vol] 0.0 10*3/uL [place] Basophils/100 WBC (Bld) 0.6 % [place] Eosinophils (Bld) [#/Vol] 0.2 10*3/uL [place] Eosinophils/100 WBC (Bld) 3 % [place] Erythrocyte distribution width (RBC) [Ratio] 17.6 % High 11.5 - 14.5 % [place] Hematocrit (Bld) [Volume fraction] 32.6 % Low 37 - 47 % [place] Hemoglobin (Bld) [Mass/Vol] 9.7 g/dL Low [place] Immature Grans (Abs) 0.04 [place] Immature granulocytes (Bld) [#/Vol] 0.6 % [place] Interpretation and review of laboratory results Abnormal [place] Lymphocytes (Bld) [#/Vol] 1.0 10*3/uL [place] Lymphocytes/100 WBC (Bld) 14.6 % [place] MCH (RBC) [Entitic mass] 26.7 pg 26 - 33 pg [place] MCHC (RBC) [Mass/Vol] 29.8 g/dL [place] MCV (RBC) [Entitic vol] 89.8 fL 81 - 99 fL [place] Monocytes (Bld) [#/Vol] 0.6 10*3/uL [place] Monocytes/100 WBC (Bld) 9.1 % [place] Nucleated RBC/100 WBC (Bld) [Ratio] 0 % /100 wbc [place] Comment on above: Performed at [facility] [address] [place] [address] Platelet mean volume (Bld) [Entitic vol] 12.1 fL 9.4 - 12.4 fL [place] Platelets (Bld) [#/Vol] 133 10*3/uL [place] RBC (Bld) [#/Vol] 3.63 10*6/uL [place] RDW-SD 58.4 fL High 35 - 45 fL [place] Segmented neutrophils/100 WBC (Bld) 72.1 % [place] Segs Absolute 5.0 [place] WBC (Bld) [#/Vol] 6.9 10*3/uL [place] CBC WITH DIFFERENTIALon 01-09 ABS IMMATURE GRANS (IG) 0.04 thou/mm3 Normal 0.00-0.07 [facility] Comment on above: Performed By: #### H H #### [facility] [address] [place] [address] ABS NEUTROPHILS 5.0 thou/mm3 Normal 1.8-7.7 [facility] Comment on above: Performed By: #### H H #### [address] [address] Basophils (Bld) [#/Vol] 0.0 thou/mm3 Normal 0.0-0.1 [facility] Comment on above: Performed By: #### H H #### [address] [address] Basophils/100 WBC (Bld) 0.6 % Normal [facility] Comment on above: Performed By: #### H H #### [address] [address] Eosinophils (Bld) [#/Vol] 0.2 thou/mm3 Normal 0.0-0.4 [facility] Comment on above: Performed By: #### H H #### [address] [address] Eosinophils/100 WBC (Bld) 3.0 % Normal [facility] Comment on above: Performed By: #### H H #### [address] [address] Erythrocyte distribution width (RBC) [Ratio] 17.6 % High 11.5-14.5 [facility] Comment on above: Performed By: #### H H #### [address] [address] Hematocrit (Bld) [Volume fraction] 32.6 % Low 37.0-47.0 [facility] Comment on above: Performed By: #### H H #### [address] [address] Hemoglobin (Bld) [Mass/Vol] 9.7 gm/dl Low 12.0-16.0 [facility] Comment on above: Performed By: #### H H #### [address] [address] IMMATURE GRANS (IG) 0.6 % Normal [facility] Comment on above: Performed By: #### H H #### [address] [address] Lymphocytes (Bld) [#/Vol] 1.0 thou/mm3 Normal 1.0-4.8 [facility] Comment on above: Performed By: #### H H #### [address] [address] Lymphocytes/100 WBC (Bld) 14.6 % Normal [facility] Comment on above: Performed By: #### H H #### [address] [address] MCH (RBC) [Entitic mass] 26.7 pg Normal 26.0-33.0 [facility] Comment on above: Performed By: #### H H #### [address] [address] MCHC (RBC) [Mass/Vol] 29.8 gm/dl Low 32.2-35.5 [facility] Comment on above: Performed By: #### H H #### [address] [address] MCV (RBC) [Entitic vol] 89.8 fL Normal 81.0-99.0 [facility] Comment on above: Performed By: #### H H #### [address] [address] Monocytes (Bld) [#/Vol] 0.6 thou/mm3 Normal 0.4-1.3 [facility] Comment on above: Performed By: #### H H #### [address] [address] Monocytes/100 WBC (Bld) 9.1 % Normal [facility] Comment on above: Performed By: #### H H #### [address] [address] Neutrophils/100 WBC (Bld) 72.1 % Normal [facility] Comment on above: Performed By: #### H H #### [address] [address] Nucleated RBC/100 WBC (Bld) [Ratio] 0 /100 wbc Normal [facility] Comment on above: Performed By: #### H H #### [address] [address] Platelet mean volume (Bld) [Entitic vol] 12.1 fL Normal 9.4-12.4 [facility] Comment on above: Performed By: #### H H #### [address] [address] Platelets (Bld) [#/Vol] 133 thou/mm3 Normal 130-400 [facility] Comment on above: Performed By: #### H H #### [address] [address] RBC (Bld) [#/Vol] 3.63 mill/mm3 Low 4.20-5.40 [facility] Comment on above: Performed By: #### H H #### [address] [address] RDW-SD 58.4 fL High 35.0-45.0 [facility] Comment on above: Performed By: #### H H #### [address] [address] WBC (Bld) [#/Vol] 6.9 thou/mm3 Normal 4.8-10.8 [facility] Comment on above: Performed By: #### H H #### [address] [address] GFR, ESTIMATEDon 01-26-2020 GFR/1.73 sq M.predicted MDRD (S/P/Bld) [Vol rate/Area] 73 ml/min/1.73m2 Abnormal [facility] Comment on above: Result Comment: [place] vega Description GFR, ml/min/1.73 m2 - At increased risk > or = 60 (with chronic kidney disease risk factors) 1 Normal or increased GFR > or = 90 2 Mildly or decreased GFR 60 - 89 3 Moderately decreased GFR 30 - 59 4 Severely decreased GFR 15 - 29 5 Kidney failure <15 (or dialysis) Estimated GFR calculated using abbreviated MDRD formula as recommended by National Kidney Foundation. Calculation based upon serum creatinine and adjusted for age, gender & race. Lashonda. Internal Med., Vol. 139 (2) pg 137-147. Performed By: #### H H #### [facility] [employer] [address] [address] Glomerular Filtration Rate, Estimatedon 01-26-2020 Est, Glom Filt Rate 73 Abnormal ml/min/1.73m2 [facility] [place] Comment on above: Stage Description GF R, ml/min/1.73 m2 - At increased risk > or = 60 (with chronic kidney disease risk factors) 1 Normal or increased GFR > or = 90 2 Mildly or decreased GFR 60 - 89 3 Moderately decreased GFR 30 - 59 4 Severely decreased GFR 15 - 29 5 Kidney failure <15 (or dialysis) Estimated GFR calculated using abbreviated MDRD formula as recommended by National Kidney Foundation. Calculation based upon serum creatinine and adjusted for age, gender & race. Lashonda. Internal Med., Vol. 139 (2) pg 137-147. Performed at [facility] [employer] [address] [place] [address] HGB,HCTon 01-26-2020 Hematocrit (Bld) [Volume fraction] 32.1 % Low 37.0-47.0 [facility] Comment on above: Performed By: #### B MP, MG, ANION, EGFR1, NTBNP, TROPT #### [facility] [address] [place] [address] Hemoglobin (Bld) [Mass/Vol] 9.6 gm/dl Low 12.0-16.0 [facility] Comment on above: Performed By: #### B MP, MG, ANION, EGFR1, NTBNP, TROPT #### [facility] [address] [place] [address] Hematocrit (Bld) [Volume fraction] 31.8 % Low 37.0-47.0 [facility] Comment on above: Performed By: #### H H #### [facility] [address] [place] [address] Hemoglobin (Bld) [Mass/Vol] 9.6 gm/dl Low 12.0-16.0 [facility] Comment on above: Performed By: #### H H #### [facility] [address] [place] [address] Hemoglobin and hematocrit, b loodon 01-26-2020 Hematocrit (Bld) [Volume fraction] 32.1 % Low 37 - 47 % [place] Comment on above: Performed at [facility] [address] [place] [address] Hemoglobin (Bld) [Mass/Vol] 9.6 g/dL [place] Interpretation and review of laboratory results Abnormal [place] Hematocrit (Bld) [Volume fraction] 31.8 % Low 37 - 47 % [place] Comment on above: Performed at [facility] [address] [place] [address] Hemoglobin (Bld) [Mass/Vol] 9.6 g/dL Low [place] Interpretation and review of laboratory results Abnormal [place] Otheron 01-26-2020 Interpretation and review of laboratory results Abnormal [place] SURGICAL 01-26-2020 SURGICAL [facility] SAMREEN DAWSON Pam [id number] Assoc. Page 1 of 1 [address] [place] [address] PROC: 01/26/2020 [facility] RECV: 01/27/[address] [facility] RPTD: 01/30/2020 [place] [address] LOC: ACCT: [id number] SEX: F : 1955 AGE: 64 Y PATHOLOGY REPORT ATTN: JESSA BUCHANAN REQ: JESSA BUCHANAN Copies To: MANJU PRESTON; JESSA BUCHANAN Clinical Information: ANEMIA FINAL DIAGNOSIS: Descending colon and sigmoid polyps, biopsy: Tubular adenomas. Specimen: BIOPSY OF DESCENDING COLON, AND SIGMOID POLYPS Gross Examination: The container is labeled Samreen Dawson, biopsy of descending colon polyps and sigmoid polyps. Received in formalin are two fragments of tissue measuring in aggregate 0.4 x 0.2 x 0.2 cm. 1 ns. [id number] Microscopic Examination: Sections show fragments of tubular adenoma. There is no high-grade dysplasia recognized. [id number] RON GUZMAN M.D., F.C.A.P [facility]/ [facility] Printed on: 01/30/[address] [place] [id number] Original print date: 01/30/2020 Normal [facility] ABO/RHon 01-25-2020 ABO O [facility] [place] Rh Factor Positive [place] Comment on above: Performed at [facility] [address] [place] [address] ABO/RH CAPTUREon 01-25-2020 RH CAPTURE (2 D CLONES) Positive Normal [facility] Comment on above: Performed By: #### P OCGL #### [facility] [address] [place] [address] ABO CAPTURE O Normal [facility] Comment on above: Performed By: #### P OCGL #### [address] [address] ANION GAPon 01-25-2020 Anion gap [Moles/Vol] 9.0 mmol/L Normal 8.0-16.[address] [facility] Comment on above: Result Comment: ANIO N GAP = Sodium -(Chloride + CO2) Performed By: #### P OCGL #### [address] [address] ANTIBODY SCREENon 01-25-2020 GEL INDIRECT CHARLA Negative [place] Comment on above: Performed at [facility] [address] [place] [address] APTTon 01-25-2020 aPTT Coag (Bld) [Time] 29.5 s Normal 22.0-38.0 [facility] Comment on above: Result Comment: Ther apeutic Heparin Reference Range= 60-95 seconds (corresponds to 0.3 to 0.7 u/mL Anti-Xa factor activity) Performed By: #### P OCGL #### [address] [address] aPTT Coag (Bld) [Time] 29.5 s [place] Comment on above: Therapeutic Heparin Reference Range= 60-95 seconds (corresponds to 0.3 to 0.7 u/mL Anti-Xa factor activity) Performed at [facility] [address] [place] [address] Anion Gapon 01-25-2020 Anion gap [Moles/Vol] 9.0 mmol/L 8 - 16 meq/L [place] Comment on above: ANION GAP = Sodium - (Chloride + CO2) Performed at [facility] [address] [place] [address] Brain Natriuretic Peptideon 01-25-2020 Natriuretic peptide B (Bld) [Mass/Vol] 5964 pg/mL High 0 - 900 pg/mL [place] Comment on above: Values < 300 pg/ml rule out , or make the probability of heart failure highly unlikely. Values which rule in heart failue are as follows: AGE RANGE <50 years >450 pg/ml 50-75 years >900 pg/ml >75 years >1800 pg/ml Performed at [facility] [address] [place] [address] CBCon 01-25-2020 Erythrocyte distribution width (RBC) [Ratio] 18.2 % High 11.5 - 14.5 % [place] Hematocrit (Bld) [Volume fraction] 33.1 % Low 37 - 47 % [place] Hemoglobin (Bld) [Mass/Vol] 9.6 g/dL [place] Interpretation and review of laboratory results Abnormal [place] MCH (RBC) [Entitic mass] 26.5 pg 26 - 33 pg [place] MCHC (RBC) [Mass/Vol] 29.0 g/dL [place] MCV (RBC) [Entitic vol] 91.4 fL 81 - 99 fL [place] Platelet mean volume (Bld) [Entitic vol] 11.8 fL 9.4 - 12.4 fL [place] Comment on above: Performed at [facility] [employer] [facility] [address] [place] [address] Platelets (Bld) [#/Vol] 128 10*3/uL [place] RBC (Bld) [#/Vol] 3.62 10*6/uL [place] RDW-SD 59.9 fL High 35 - 45 fL [place] WBC (Bld) [#/Vol] 6.9 10*3/uL [place] CBC NO DIFFERENTIALon 2019 Erythrocyte distribution width (RBC) [Ratio] 18.2 % High 11.5-14.5 [facility] Comment on above: Performed By: #### B MP, MG, ANION, EGFR1, NTBNP, TROPT #### [place] [address] Hematocrit (Bld) [Volume fraction] 33.1 % Low 37.0-47.0 [facility] Comment on above: Performed By: #### B MP, MG, ANION, EGFR1, NTBNP, TROPT #### [place] [address] Hemoglobin (Bld) [Mass/Vol] 9.6 gm/dl Low 12.0-16.0 [facility] Comment on above: Performed By: #### B MP, MG, ANION, EGFR1, NTBNP, TROPT #### [place] [address] MCH (RBC) [Entitic mass] 26.5 pg Normal 26.0-33.0 [facility] Comment on above: Performed By: #### B MP, MG, ANION, EGFR1, NTBNP, TROPT #### [place] [address] MCHC (RBC) [Mass/Vol] 29.0 gm/dl Low 32.2-35.5 [facility] Comment on above: Performed By: #### B MP, MG, ANION, EGFR1, NTBNP, TROPT #### [place] [address] MCV (RBC) [Entitic vol] 91.4 fL Normal 81.0-99.0 [facility] Comment on above: Performed By: #### B MP, MG, ANION, EGFR1, NTBNP, TROPT #### [place] [address] Platelet mean volume (Bld) [Entitic vol] 11.8 fL Normal 9.4-12.4 [facility] Comment on above: Performed By: #### B MP, MG, ANION, EGFR1, NTBNP, TROPT #### [address] [address] Platelets (Bld) [#/Vol] 128 thou/mm3 Low 130-400 [facility] Comment on above: Performed By: #### B MP, MG, ANION, EGFR1, NTBNP, TROPT #### [place] [address] RBC (Bld) [#/Vol] 3.62 mill/mm3 Low 4.20-5.40 [facility] Comment on above: Performed By: #### B MP, MG, ANION, EGFR1, NTBNP, TROPT #### [place] [address] RDW-SD 59.9 fL High 35.0-45.0 [facility] Comment on above: Performed By: #### B MP, MG, ANION, EGFR1, NTBNP, TROPT #### [place] [address] WBC (Bld) [#/Vol] 6.9 thou/mm3 Normal 4.8-10.8 [facility] Comment on above: Performed By: #### B MP, MG, ANION, EGFR1, NTBNP, TROPT #### [place] [address] CBC WITH DIFFERENTIALon 01-09 ABS IMMATURE GRANS (IG) 0.03 thou/mm3 Normal 0.00-0.07 [facility] Comment on above: Performed By: #### P OCGL #### [place] [address] ABS NEUTROPHILS 5.4 thou/mm3 Normal 1.8-7.7 [facility] Comment on above: Performed By: #### P OCGL #### [place] [phone] Basophils (Bld) [#/Vol] 0.0 thou/mm3 Normal 0.0-0.1 [facility] Comment on above: Performed By: #### P OCGL #### [place] [id number] Basophils/100 WBC (Bld) 0.4 % Normal [facility] Comment on above: Performed By: #### P OCGL #### [place] [phone] Eosinophils (Bld) [#/Vol] 0.1 thou/mm3 Normal 0.0-0.4 [facility] Comment on above: Performed By: #### P OCGL #### [address] [address] Eosinophils/100 WBC (Bld) 2.0 % Normal [facility] Comment on above: Performed By: #### P OCGL #### [address] [address] Erythrocyte distribution width (RBC) [Ratio] 18.3 % High 11.5-14.5 [facility] Comment on above: Performed By: #### P OCGL #### [address] [address] Hematocrit (Bld) [Volume fraction] 31.9 % Low 37.0-47.0 [facility] Comment on above: Performed By: #### P OCGL #### [address] [address] Hemoglobin (Bld) [Mass/Vol] 9.4 gm/dl Low 12.0-16.0 [facility] Comment on above: Performed By: #### P OCGL #### [address] [address] IMMATURE GRANS (IG) 0.4 % Normal [facility] Comment on above: Performed By: #### P OCGL #### [address] [address] Lymphocytes (Bld) [#/Vol] 1.0 thou/mm3 Normal 1.0-4.8 [facility] Comment on above: Performed By: #### P OCGL #### [address] [address] Lymphocytes/100 WBC (Bld) 13.7 % Normal [facility] Comment on above: Performed By: #### P OCGL #### [address] [address] MCH (RBC) [Entitic mass] 26.6 pg Normal 26.0-33.0 [facility] Comment on above: Performed By: #### P OCGL #### [address] [address] MCHC (RBC) [Mass/Vol] 29.5 gm/dl Low 32.2-35.5 [facility] Comment on above: Performed By: #### P OCGL #### [address] [address] MCV (RBC) [Entitic vol] 90.4 fL Normal 81.0-99.0 [facility] Comment on above: Performed By: #### P OCGL #### [address] [address] Monocytes (Bld) [#/Vol] 0.8 thou/mm3 Normal 0.4-1.3 [facility] Comment on above: Performed By: #### P OCGL #### [address] [address] Monocytes/100 WBC (Bld) 10.3 % Normal [facility] Comment on above: Performed By: #### P OCGL #### [address] [address] Neutrophils/100 WBC (Bld) 73.2 % Normal [facility] Comment on above: Performed By: #### P OCGL #### [address] [address] Nucleated RBC/100 WBC (Bld) [Ratio] 0 /100 wbc Normal [facility] Comment on above: Performed By: #### P OCGL #### [address] [address] Platelet mean volume (Bld) [Entitic vol] 12.2 fL Normal 9.4-12.4 [facility] Comment on above: Performed By: #### P OCGL #### [address] [address] Platelets (Bld) [#/Vol] 151 thou/mm3 Normal 130-400 [facility] Comment on above: Performed By: #### P OCGL #### [address] [address] RBC (Bld) [#/Vol] 3.53 mill/mm3 Low 4.20-5.40 [facility] Comment on above: Performed By: #### P OCGL #### [facility] [employer] [address] [place] [address] RDW-SD 59.9 fL High 35.0-45.0 [facility] Comment on above: Performed By: #### P OCGL #### [facility] [employer] [address] [place] [address] WBC (Bld) [#/Vol] 7.4 thou/mm3 Normal 4.8-10.8 [facility] Comment on above: Performed By: #### P OCGL #### [facility] [employer] [address] [place] [address] CBC auto differentialon 01-09 Basophils (Bld) [#/Vol] 0.0 10*3/uL [place] Basophils/100 WBC (Bld) 0.4 % [place] Eosinophils (Bld) [#/Vol] 0.1 10*3/uL [place] Eosinophils/100 WBC (Bld) 2 % [place] Erythrocyte distribution width (RBC) [Ratio] 18.3 % High 11.5 - 14.5 % [place] Hematocrit (Bld) [Volume fraction] 31.9 % Low 37 - 47 % [place] Hemoglobin (Bld) [Mass/Vol] 9.4 g/dL Low [place] Immature Grans (Abs) 0.03 [place] Immature granulocytes (Bld) [#/Vol] 0.4 % [place] Interpretation and review of laboratory results Abnormal [place] Lymphocytes (Bld) [#/Vol] 1.0 10*3/uL [place] Lymphocytes/100 WBC (Bld) 13.7 % [place] MCH (RBC) [Entitic mass] 26.6 pg 26 - 33 pg [place] MCHC (RBC) [Mass/Vol] 29.5 g/dL [place] MCV (RBC) [Entitic vol] 90.4 fL 81 - 99 fL [place] Monocytes (Bld) [#/Vol] 0.8 10*3/uL [place] Monocytes/100 WBC (Bld) 10.3 % [place] Nucleated RBC/100 WBC (Bld) [Ratio] 0 % /100 wbc [place] Comment on above: Performed at [facility] [address] [place] [address] Platelet mean volume (Bld) [Entitic vol] 12.2 fL 9.4 - 12.4 fL [place] Platelets (Bld) [#/Vol] 151 10*3/uL [place] RBC (Bld) [#/Vol] 3.53 10*6/uL [place] RDW-SD 59.9 fL High 35 - 45 fL [place] Segmented neutrophils/100 WBC (Bld) 73.2 % [place] Segs Absolute 5.4 [place] WBC (Bld) [#/Vol] 7.4 10*3/uL [place] COMP. METABOLIC PANELon 01-09 Albumin [Mass/Vol] 3.7 g/dL Normal 3.5-5.1 [facility] Comment on above: Performed By: #### P OCGL #### [facility] [email or web address] [address] [place] [address] ALP [Catalytic activity/Vol] 62 U/L Normal 38-126 [facility] Comment on above: Performed By: #### P OCGL #### [facility] [address] [place] [address] ALT [Catalytic activity/Vol] 8 U/L Low 11-66 [facility] Comment on above: Performed By: #### P OCGL #### [facility] [email or web address] [address] [place] [address] AST [Catalytic activity/Vol] 14 U/L Normal 5-40 [facility] Comment on above: Performed By: #### P OCGL #### [facility] [email or web address] [address] [place] [address] Bilirubin Ql (U) 0.6 mg/dL Normal 0.3-1.2 [facility] Comment on above: Performed By: #### P OCGL #### [facility] [address] [place] [address] Calcium [Mass/Vol] 9.3 mg/dL Normal 8.5-10.5 [facility] Comment on above: Performed By: #### P OCGL #### [facility] [address] [place] [address] Chloride [Moles/Vol] 97 mmol/L Low 98-111 [facility] Comment on above: Performed By: #### P OCGL #### [facility] [address] [place] [address] CO2 [Moles/Vol] 32 mmol/L Normal 23-33 [facility] Comment on above: Performed By: #### P OCGL #### [facility] [employer] [address] [place] [address] Creatinine [Mass/Vol] 1.0 mg/dL Normal 0.4-1.2 [facility] Comment on above: Performed By: #### P OCGL #### [facility] [email or web address] [address] [place] [address] Glucose [Mass/Vol] 116 mg/dL High 70-108 [facility] Comment on above: Performed By: #### P OCGL #### [facility] [email or web address] [address] [place] [address] Potassium [Moles/Vol] 4.0 mmol/L Normal 3.5-5.2 [facility] Comment on above: Performed By: #### P OCGL #### [facility] [address] [place] [address] Protein [Mass/Vol] 6.3 g/dL Normal 6.1-8.0 [facility] Comment on above: Performed By: #### P OCGL #### [facility] [email or web address] [address] [place] [address] Sodium [Moles/Vol] 138 mmol/L Normal 135-145 [facility] Comment on above: Performed By: #### P OCGL #### [facility] [address] [place] [address] Urea nitrogen [Mass/Vol] 29 mg/dL High 7-22 [facility] Comment on above: Performed By: #### P OCGL #### [facility] [address] [place] [address] Comprehensive metabolic pane kathie 01-25-2020 Albumin [Mass/Vol] 3.7 g/dL 3.5 - 5.1 g/dL [place], [place] ALP [Catalytic activity/Vol] 62 U/L 38 - 126 U/L [place] ALT [Catalytic activity/Vol] 8 U/L Low 11 - 66 U/L [place] Comment on above: Performed at [facility] [address] [place] [address] AST [Catalytic activity/Vol] 14 U/L 5 - 40 U/L [place] Bilirubin Ql (U) 0.6 mg/dL 0.3 - 1.2 mg/dL [place] Calcium [Mass/Vol] 9.3 mg/dL 8.5 - 10. 5 mg/dL [place] Chloride [Moles/Vol] 97 mmol/L Low 98 - 111 meq/L [place] CO2 [Moles/Vol] 32 mmol/L 23 - 33 meq/L [place] Creatinine [Mass/Vol] 1 mg/dL 0.4 - 1.2 mg/d L [place] Glucose [Mass/Vol] 116 mg/dL High 70 - 108 mg/dL [place] Potassium [Moles/Vol] 4.0 mmol/L 3.5 - 5.2 meq/ L [place] Protein [Mass/Vol] 6.3 g/dL 6.1 - 8 g/dL [place] Sodium [Moles/Vol] 138 mmol/L 135 - 145 meq/L [place] Urea nitrogen [Mass/Vol] 29 mg/dL High 7 - 22 mg/dL [place] EKG 12 Leadon 01-25-2020 Atrial Rate 74 BPM [place] P Ada 66 degrees [facility] [place] P-R Interval 182 ms [facility] [place] Q-T Interval 510 ms [facility] [place] QRS Duration 188 ms [facility] [place] QTc Calculation (Bazett) 566 ms [facility] [place] R Ada 89 degrees [facility] [place] T Ada -74 degrees [facility] [place], [place] Urea nitrogen [Mass/Vol] Normal sinus rhythm Possible Left atrial enlargement Right bundle branch block Cannot rule out Inferior infarct , age undetermined Abnormal ECG When compared with ECG of 11-DEC-2019 07:58, No significant change was found Confirmed by AMANUEL FERNANDEZ ([id number]) on 01/25/2020 7:40:44 AM [facility] [place] Ventricular Rate 74 BPM [facility] [place], [facility] Incoming [place] Results - 01/25/2020 7:40 AM EDT Normal sinus rhythm Possible Left atrial enlargement Right bundle branch block Cannot rule out Inferior infarct , age undetermined Abnormal ECG When compared with ECG of 11-DEC-2019 07:58, No significant change was found Confirmed by AMANUEL FERNANDEZ ([id number]) on 01/25/2020 7:40:44 AM [facility], [place] EKG 12-LEADon 01-25-2020 EKG 12-LEAD 74 74 [phone] Normal sinus rhythm Possible Left atrial enlargement Right bundle branch block Cannot rule out Inferior infarct , age undetermined Abnormal ECG When compared with ECG of 11-DEC-2019 07:58, No significant change was found Confirmed by AMANUEL FERNANDEZ ([id number]) on 01/25/2020 7:40:44 AM [email or web address] teTime?[email or web address] [id number]&Date=25-01-20 20&Time=03%3a03%3a13 %3a00&TestType=ECG&S ite=3&OutputType=PDF &Ext=PDF Normal [facility] FERRITINon 01-25-2020 Ferritin [Mass/Vol] 104 ng/mL Normal 10-291 [facility] Comment on above: Performed By: #### B MP, MG, ANION, EGFR1, NTBNP, TROPT #### [facility] [address] [place] [address] Ferritinon 01-25-2020 Ferritin [Mass/Vol] 104 ng/mL 10 - 291 ng/mL [place], [place] Comment on above: Performed at [facility] [address] [place] [address] GEL INDIRECT COOMBSon 2019 GEL INDIRECT CHARLA Negative Normal [facility] Comment on above: Performed By: #### P OCGL #### [facility] [address] [place] [address] GFR, ESTIMATEDon 01-25-2020 GFR/1.73 sq M.predicted MDRD (S/P/Bld) [Vol rate/Area] 56 ml/min/1.73m2 Abnormal [facility] Comment on above: Result Comment: Stag e Description GFR, ml/min/1.73 m2 - At increased risk > or = 60 (with chronic kidney disease risk factors) 1 Normal or increased GFR > or = 90 2 Mildly or decreased GFR 60 - 89 3 Moderately decreased GFR 30 - 59 4 Severely decreased GFR 15 - 29 5 Kidney failure <15 (or dialysis) Estimated GFR calculated using abbreviated MDRD formula as recommended by National Kidney Foundation. Calculation based upon serum creatinine and adjusted for age, gender & race. Lashonda. Internal Med., Vol. 139 (2) pg 137-147. Performed By: #### P OCGL #### [facility] [address] [place] [address] Glomerular Filtration Rate, Estimatedon 01-25-2020 Est, Glom Filt Rate 56 Abnormal ml/min/1.73m2 [place], [place] Comment on above: Stage Description GF R, ml/min/1.73 m2 - At increased risk > or = 60 (with chronic kidney disease risk factors) 1 Normal or increased GFR > or = 90 2 Mildly or decreased GFR 60 - 89 3 Moderately decreased GFR 30 - 59 4 Severely decreased GFR 15 - 29 5 Kidney failure <15 (or dialysis) Estimated GFR calculated using abbreviated MDRD formula as recommended by National Kidney Foundation. Calculation based upon serum creatinine and adjusted for age, gender & race. Lashonda. Internal Med., Vol. 139 (2) pg 137-147. Performed at [facility] [address] [place] [address] HGB,HCTon 01-25-2020 Hematocrit (Bld) [Volume fraction] 32.7 % Low 37.0-47.0 [facility] Comment on above: Performed By: #### H H ####[facility] [address] [place] [address] Hemoglobin (Bld) [Mass/Vol] 9.6 gm/dl Low 12.0-16.0 [facility] Comment on above: Performed By: #### H H ####[facility] [address] [place] [address] Hematocrit (Bld) [Volume fraction] 32.1 % Low 37.0-47.0 [facility] Comment on above: Performed By: #### H H #### [facility] [address] [place] [address] Hemoglobin (Bld) [Mass/Vol] 9.5 gm/dl Low 12.0-16.0 [facility] Comment on above: Performed By: #### H H #### [facility] [address] [place] [address] Hemoglobin and hematocrit, b loodon 01-25-2020 Hematocrit (Bld) [Volume fraction] 32.7 % Low 37 - 47 % [place], [place] Comment on above: Performed at [facility] [address] [place] [address] Hemoglobin (Bld) [Mass/Vol] 9.6 g/dL Low [place] Interpretation and review of laboratory results Abnormal [place] Hematocrit (Bld) [Volume fraction] 32.1 % Low 37 - 47 % [place] Comment on above: Performed at [facility] [address] [place] [address] Hemoglobin (Bld) [Mass/Vol] 9.5 g/dL Low [place] Interpretation and review of laboratory results Abnormal [place] IRONon 01-25-2020 Iron [Mass/Vol] 30 ug/dL Low 50-170 [facility] Comment on above: Performed By: #### B MP, MG, ANION, EGFR1, NTBNP, TROPT #### [facility] [address] [place] [address] Ironon 01-25-2020 Interpretation and review of laboratory results Abnormal [place] Iron [Mass/Vol] 30 ug/dL Low 50 - 170 ug/dL [place] Comment on above: Performed at [facility] [address] [place] [address] MAGNESIUMon 01-25-2020 Magnesium [Mass/Vol] 1.8 mg/dL Normal 1.6-2.4 [facility] Comment on above: Performed By: #### P OCGL #### [facility] [address] [place] [address] Magnesiumon 01-25-2020 Magnesium [Mass/Vol] 1.8 mg/dL 1.6 - 2.4 mg/dL [place] Comment on above: Performed at [facility] [address] [place] [address] NT PRO-B NATRIURETIC PEPTIDE on 01-25-2020 Natriuretic peptide B (Bld) [Mass/Vol] 5964.0 pg/mL High 0.0-900.0 [facility] Comment on above: Result Comment: Valu es < 300 pg/ml rule out , or make the probability of heart failure highly unlikely. Values which rule in heart failue are as follows: AGE RANGE <50 years >450 pg/ml 50-75 years >900 pg/ml >75 years >1800 pg/ml Performed By: #### P OCGL #### [facility] [address] [place] [address] Otheron 01-25-2020 Interpretation and review of laboratory results Abnormal [place] Interpretation and review of laboratory results Abnormal [place] PROTHOMBIN TIMEon 01-25-2020 INR Coag (PPP) [Relative time] 1.19 {INR} High 0.85-1.13 [facility] Comment on above: Result Comment: ---- -----INDICATION INR Reference Range DVT, PE, AF, AMI, tissue heart valve 2.0 to 3.0 Mechanical prosthetic valves 2.5 to 3.5 Performed By: #### P OCGL #### [facility] [address] [place] [address] Protime-INRon 01-25-2020 INR Coag (PPP) [Relative time] 1.19 {INR} High [place] Comment on above: ---------INDICATION- INR Reference Range DVT, PE, AF, AMI, tissue heart valve 2.0 to 3.0 Mechanical prosthetic valves 2.5 to 3.5 Performed at [facility] [address] [address] Interpretation and review of laboratory results Abnormal [place] TROPONIN-Ton 01-25-2020 Troponin T.cardiac [Mass/Vol] 0.399 ng/ml Abnormal [facility] Comment on above: Result Comment: <0.0 10 ng/ml Normal > or = 0.010 ng/ml Elevated (99%) Consistent with myocardial damage Cardiac troponin values can be elevated by many disease states in addition to acute ischemia. These include, but are not limited to: chronic renal failure, CHF, CVA, pulmonary embolus, COPD, myocardial trauma/surgery, myocarditis, pericarditis, tachycardia, aortic dissection, amyloidosis, sepsis and strenuous exercise. Serial measurement of troponin is strongly recommended as a first step in determining whether a low level elevation represents an acute or chronic condition. Performed By: #### B MP, MG, ANION, EGFR1, NTBNP, TROPT #### [facility] [email or web address] [address] [place] [address] Troponin T.cardiac [Mass/Vol] 0.371 ng/ml Abnormal [facility] Comment on above: Result Comment: <0.0 10 ng/ml Normal > or = 0.010 ng/ml Elevated (99%) Consistent with myocardial damage Cardiac troponin values can be elevated by many disease states in addition to acute ischemia. These include, but are not limited to: chronic renal failure, CHF, CVA, pulmonary embolus, COPD, myocardial trauma/surgery, myocarditis, pericarditis, tachycardia, aortic dissection, amyloidosis, sepsis and strenuous exercise. Serial measurement of troponin is strongly recommended as a first step in determining whether a low level elevation represents an acute or chronic condition. Performed By: #### B MP, MG, ANION, EGFR1, NTBNP, TROPT #### [facility] [email or web address] [address] [place] [address] Troponin T.cardiac [Mass/Vol] 0.425 ng/ml Abnormal [facility] Comment on above: Result Comment: <0.0 10 ng/ml Normal > or = 0.010 ng/ml Elevated (99%) Consistent with myocardial damage Cardiac troponin values can be elevated by many disease states in addition to acute ischemia. These include, but are not limited to: chronic renal failure, CHF, CVA, pulmonary embolus, COPD, myocardial trauma/surgery, myocarditis, pericarditis, tachycardia, aortic dissection, amyloidosis, sepsis and strenuous exercise. Serial measurement of troponin is strongly recommended as a first step in determining whether a low level elevation represents an acute or chronic condition. Performed By: #### P OCGL #### [facility] [employer] [address] [place] [address] Troponinon 01-25-2020 Interpretation and review of laboratory results Abnormal [place] Troponin T.cardiac [Mass/Vol] 0.399 ng/ml Abnormal [place] Comment on above: <0.010 ng/ml Normal > or = 0.010 ng/ml Elevated (99%) Consistent with myocardial damage Cardiac troponin values can be elevated by many disease states in addition to acute ischemia. These include, but are not limited to: chronic renal failure, CHF, CVA, pulmonary embolus, COPD, myocardial trauma/surgery, myocarditis, pericarditis, tachycardia, aortic dissection, amyloidosis, sepsis and strenuous exercise. Serial measurement of troponin is strongly recommended as a first step in determining whether a low level elevation represents an acute or chronic condition. Performed at [address] [address] Interpretation and review of laboratory results Abnormal [place] Troponin T.cardiac [Mass/Vol] 0.371 ng/ml Abnormal [place] Comment on above: <0.010 ng/ml Normal > or = 0.010 ng/ml Elevated (99%) Consistent with myocardial damage Cardiac troponin values can be elevated by many disease states in addition to acute ischemia. These include, but are not limited to: chronic renal failure, CHF, CVA, pulmonary embolus, COPD, myocardial trauma/surgery, myocarditis, pericarditis, tachycardia, aortic dissection, amyloidosis, sepsis and strenuous exercise. Serial measurement of troponin is strongly recommended as a first step in determining whether a low level elevation represents an acute or chronic condition. Performed at [facility] [address] [address] Troponin T.cardiac [Mass/Vol] 0.425 ng/ml Abnormal [place] Comment on above: <0.010 ng/ml Normal > or = 0.010 ng/ml Elevated (99%) Consistent with myocardial damage Cardiac troponin values can be elevated by many disease states in addition to acute ischemia. These include, but are not limited to: chronic renal failure, CHF, CVA, pulmonary embolus, COPD, myocardial trauma/surgery, myocarditis, pericarditis, tachycardia, aortic dissection, amyloidosis, sepsis and strenuous exercise. Serial measurement of troponin is strongly recommended as a first step in determining whether a low level elevation represents an acute or chronic condition. Performed at [address] [address] XR CHEST (2 VW)on 01-25-2020 XR CHEST (2 VW) PROCEDURE: XR CHEST (2 VW) CLINICAL INFORMATION: shortness of breath. Shortness of breath. COMPARISON: Chest x-ray 12/14/2019. TECHNIQUE: PA and lateral views the chest. FINDINGS: There is a dual-lead pacemaker. There is cardiomegaly. The mediastinum is not widened. There are small layering bilateral pleural effusions. These have increased in size. There is a hazy appearance to the mid and lower lung zones bilaterally. This can represent some pulmonary edema. The pulmonary vascularity is normal. There are degenerative changes in the thoracic spine. IMPRESSION: 1. Small layering bilateral pleural effusions. These have increased in size. 2. Cardiomegaly. 3. Mild pulmonary edema in the mid and lower lung zones. This report has been created using voice recognition software. It may contain minor errors which are inherent in voice recognition technology. Final report electronically signed by Dr. Ida Golden on 01/25/2020 7:23 AM Interpreted by: Ida Golden MD Signed by: Ida Golden MD 01/25/20 Final result Normal [facility] PROCEDURE: XR CHEST (2 VW) CLINICAL INFORMATION: shortness of breath. Shortness of breath. COMPARISON: Chest x-ray 12/14/2019. TECHNIQUE: PA and lateral views the chest. FINDINGS: There is a dual-lead pacemaker. There is cardiomegaly. The mediastinum is not widened. There are small layering bilateral pleural effusions. These have increased in size. There is a hazy appearance to the mid and lower lung zones bilaterally. This can represent some pulmonary edema. The pulmonary vascularity is normal. There are degenerative changes in the thoracic spine. [place], [place] Cristofer, [facility] Incoming Radiant Results From [employer] - 01/25/2020 7:26 AM EDT PROCEDURE: XR CHEST (2 VW) CLINICAL INFORMATION: shortness of breath. Shortness of breath. COMPARISON: Chest x-ray 12/14/2019. TECHNIQUE: PA and lateral views the chest. FINDINGS: There is a dual-lead pacemaker. There is cardiomegaly. The mediastinum is not widened. There are small layering bilateral pleural effusions. These have increased in size. There is a hazy appearance to the mid and lower lung zones bilaterally. This can represent some pulmonary edema. The pulmonary vascularity is normal. There are degenerative changes in the thoracic spine. IMPRESSION: 1. Small layering bilateral pleural effusions. These have increased in size. 2. Cardiomegaly. 3. Mild pulmonary edema in the mid and lower lung zones. This report has been created using voice recognition software. It may contain minor errors which are inherent in voice recognition technology. Final report electronically signed by Dr. Ida Golden on 01/25/2020 7:23 AM [place] 1. Small layering bilateral pleural effusions. These have increased in size. 2. Cardiomegaly. 3. Mild pulmonary edema in the mid and lower lung zones. This report has been created using voice recognition software. It may contain minor errors which are inherent in voice recognition technology. Final report electronically signed by Dr. Ida Golden on 01/25/2020 7:23 AM [place] [id number] 01-19-2020 SARS-CoV-2 (COVID-19) RNA JEY+probe Ql (Unsp spec) Not detected Normal Not Detected [facility] Comment on above: Result Comment: (NOT E) This nucleic acid amplification test was developed and its performance characteristics determined by [employer]. Nucleic acid amplification tests include PCR and TMA. This test has not been FDA cleared or approved. This test has been authorized by FDA under an Emergency Use Authorization (EUA). This test is only authorized for the duration of time the declaration that circumstances exist justifying the authorization of the emergency use of in vitro diagnostic tests for detection of SARS-CoV-2 virus and/or diagnosis of COVID-19 infection under section 564(b)(1) of the Act, 21 U.S.C. 360bbb-3(b) (1), unless the authorization is terminated or revoked sooner. When diagnostic testing is negative, the possibility of a false negative result should be considered in the context of a patient's recent exposures and the presence of clinical signs and symptoms consistent with COVID-19. An individual without symptoms of COVID- 19 and who is not shedding SARS-CoV-2 virus would expect to have a negative (not detected) result in this assay. Performed At: [facility] [address] [facility] [place] [id number] Tabby Orozco MD Ph:[phone] Performed By: #### A COV #### [facility] [address] [place] [address] Slate Trimmer: Fabricio Kerr MD Basic Metabolic Panelon Anion gap [Moles/Vol] 14 mmol/L 9 - 17 mmol/L [place] Bun/Cre Ratio [address] [place], [place] Calcium [Mass/Vol] 9.4 mg/dL 8.6 - 10. 4 mg/dL [place] Chloride [Moles/Vol] 96 mmol/L Low 98 - 107 mmol/L [place] CO2 [Moles/Vol] 29 mmol/L 20 - 31 mmol/L [place] Creatinine [Mass/Vol] 1.04 mg/dL High 0.5 - 0.9 mg/d L [place] GFR >60 >60 mL/min [place], [place] GFR Non- 54 mL/min Low >60 [place] Glucose [Mass/Vol] 139 mg/dL High 70 - 99 mg/dL [place], [place] Potassium [Moles/Vol] 3.6 mmol/L Low 3.7 - 5.3 mmol/L [place] Sodium [Moles/Vol] 139 mmol/L 135 - 144 mmol/L [place] Urea nitrogen [Mass/Vol] 36 mg/dL High 8 - 23 mg/dL [place] Basic Metabolic Profon 01-16 (cont.) Normal [facility] Comment on above: Result Comment: Aver age GFR for 60-69 years old: 85 mL/min/1.73sq m Chronic Kidney Disease: <60 mL/min/1.73sq m Kidney failure: <15 mL/min/1.73sq m eGFR calculated using average adult body mass. Additional eGFR calculator available at: http://www.[employer] (formerly [employer])/multiple_crcl_2012.htm Performed By: #### C BC, BNP, BMP #### Lab [address] [place] [address] Slate Trimmer: Wild Lopez MD Anion gap [Moles/Vol] 14 mmol/L Normal 9-17 [facility] Comment on above: Performed By: #### C BC, BNP, BMP #### [facility] [address] [place] [address] Slate Trimmer: Wild Lopez MD BUN/CRE Ratio 35 High 9-20 [facility] Comment on above: Performed By: #### C BC, BNP, BMP #### [facility] [address] [place] [address] Slate Trimmer: Wild Lopez MD Calcium [Mass/Vol] 9.4 mg/dL Normal 8.6-10.4 [facility] Comment on above: Performed By: #### C BC, BNP, BMP #### [facility] [address] [place] [address] Slate Trimmer: Wild Lopez MD Chloride [Moles/Vol] 96 mmol/L Low 98-107 [facility] Comment on above: Performed By: #### C BC, BNP, BMP #### [facility] [address] [place], [place] [id number] Slate Trimmer: Wild Lopez MD CO2 [Moles/Vol] 29 mmol/L Normal 20-31 [facility] Comment on above: Performed By: #### C BC, BNP, BMP #### [facility] [address] [place], [place] [id number] Slate Trimmer: Wild Lopez MD Creatinine [Mass/Vol] 1.04 mg/dL High 0.50-0.90 [facility] Comment on above: Performed By: #### C BC, BNP, BMP #### [facility] [address] [place], [place] [id number] Slate Trimmer: Wild Lopez MD GFR, Amer >60 Normal >60 [facility] Comment on above: Performed By: #### C BC, BNP, BMP #### [facility] [address] [place], [place] [id number] Slate Trimmer: Wild Lopez MD GFR,non Amer 54 mL/min Low >60 [facility] Comment on above: Performed By: #### C BC, BNP, BMP #### [facility] [address] [place] [address] Slate Trimmer: Wild Lopez MD Glucose [Mass/Vol] 139 mg/dL High 70-99 [facility] Comment on above: Performed By: #### C BC, BNP, BMP #### [facility] [address] [place], [place] [id number] Slate Trimmer: Wild Lopez MD Potassium [Moles/Vol] 3.6 mmol/L Low 3.7-5.3 [facility] Comment on above: Performed By: #### C BC, BNP, BMP #### [facility] [address] [place], [place] [id number] Slate Trimmer: Wild Lopez MD Sodium [Moles/Vol] 139 mmol/L Normal 135-144 [facility] Comment on above: Performed By: #### C BC, BNP, BMP #### [facility] [address] [place] [address] Slate Trimmer: Wild Lopez MD Staging: Normal [facility] Comment on above: Result Comment: Stag e 1: Some kidney damage normal GFR Stage 2: Mild kidney damage GFR 60-89 Stage 3: Moderate kidney damage GFR 30-59 Stage 4: Severe kidney damage GFR 15-29 Stage 5: Severe kidney damage GFR <15 ESRD - chronic treatment by dialysis or transplant Performed By: #### C BC, BNP, BMP #### [facility] [address] [place] [address] Slate Trimmer: Wild Lopez MD Urea nitrogen [Mass/Vol] 36 mg/dL High 8-23 [facility] Comment on above: Performed By: #### C BC, BNP, BMP #### [facility] [address] [place] [address] Slate Trimmer: Wild Lopez MD Brain Natri. Peptideon 01-16 BNP Interpretation Pro-BNP Reference Range: Normal [facility] Comment on above: Result Comment: Rule Out: <300 Sanchez Zone: Age <50 300-450 Age 50-75 300-900 Age >75 300-1800 Usually represents mild to moderate HF but other cardiopulmonary causes cannot be ruled out. Rule In: Age <50 >450 Age 50-75 >900 Age >75 >1800 Performed By: #### C BC, BNP, BMP #### [facility] [address] [place] [address] Slate Trimmer: Wild Lopez MD Natriuretic peptide B (Bld) [Mass/Vol] 7580 pg/mL High <300 [facility] Comment on above: Result Comment: Pro- BNP results cannot be compared to BNP results. Performed By: #### C BC, BNP, BMP #### [facility] [address] [place] [address] Slate Trimmer: Wild Lopez MD Brain Natriuretic Peptideon 01-17-2020 Natriuretic peptide B (Bld) [Mass/Vol] Pro-BNP Reference Range: [place], [place] Comment on above: Rule Out: <300 Sanchez Zone: Age <50 300-450 Age 50-75 300-900 Age >75 300-1800 Usually represents mild to moderate HF but other cardiopulmonary causes cannot be ruled out. Rule In: Age <50 >450 Age 50-75 >900 Age >75 >1800 Natriuretic peptide B (Bld) [Mass/Vol] 7580 pg/mL High <300 [place] Comment on above: Pro-BNP results loyd ot be compared to BNP results. CBCon 01-17-2020 Erythrocyte distribution width (RBC) [Ratio] 21.2 % High 11.8-14.4 [facility] Comment on above: Performed By: #### C BC, BNP, BMP #### Lab [address] [place] [address] [place] [address] Slate Trimmer: Wild Lopez MD Hematocrit (Bld) [Volume fraction] 29.5 % Low 36.3-47.1 [facility] Comment on above: Performed By: #### C BC, BNP, BMP #### [address] [place] [address] Slate Trimmer: Wild Lopez MD Hemoglobin (Bld) [Mass/Vol] 8.3 g/dL Low 11.9-15.1 [facility] Comment on above: Performed By: #### C BC, BNP, BMP #### [address] [place] [address] Slate Trimmer: Wild Lopez MD MCH (RBC) [Entitic mass] 24.6 pg Low 25.2-33.5 [facility] Comment on above: Performed By: #### C BC, BNP, BMP #### [address] [place] [address] Slate Trimmer: Wild Lopez MD MCHC (RBC) [Mass/Vol] 28.1 g/dL Low 28.4-34.8 [facility] Comment on above: Performed By: #### C BC, BNP, BMP #### [facility] [address] [place], [place] [id number] Slate Trimmer: Wild Lopez MD MCV (RBC) [Entitic vol] 87.5 fL Normal 82.6-102.9 [facility] Comment on above: Performed By: #### C BC, BNP, BMP #### [facility] [address] [place], [facility] Slate Trimmer: Wild Lopez MD NRBC Automated 0.2 per 100 WBC High 0.0 [facility] Comment on above: Performed By: #### C BC, BNP, BMP #### [address] [place] [id number] Slate Trimmer: Wild Lopez MD Platelet mean volume (Bld) [Entitic vol] 12.0 fL Normal 8.1-13.5 [facility] Comment on above: Performed By: #### C BC, BNP, BMP #### [address] [place], [place] [address] Slate Trimmer: Widl Lopez MD Platelets (Bld) [#/Vol] 188 10*3/uL Normal 138-453 [facility] Comment on above: Performed By: #### C BC, BNP, BMP #### [address] [place], [facility] Slate Trimmer: Wild Lopez MD RBC (Bld) [#/Vol] 3.37 10*6/uL Low 3.95-5.11 [facility] Comment on above: Performed By: #### C BC, BNP, BMP #### [facility] [address] [place], [place] [id number] Slate Trimmer: Wild Lopez MD WBC (Bld) [#/Vol] 11.7 10*3/uL High 3.5-11.3 [facility] Comment on above: Performed By: #### C BC, BNP, BMP #### [facility] [address] [place] [address] Slate Trimmer: Wild Lopez MD Erythrocyte distribution width (RBC) [Ratio] 21.2 % High 11.8 - 14.4 % [place] Hematocrit (Bld) [Volume fraction] 29.5 % Low 36.3 - 47.1 % [place] Hemoglobin (Bld) [Mass/Vol] 8.3 g/dL Low 11.9 - 15.1 g/dL [place] Interpretation and review of laboratory results Abnormal [place] MCH (RBC) [Entitic mass] 24.6 pg Low 25.2 - 33.5 pg [place] MCHC (RBC) [Mass/Vol] 28.1 g/dL Low 28.4 - 34.8 g/dL [place] MCV (RBC) [Entitic vol] 87.5 fL 82.6 - 102.9 fL [place] Platelet mean volume (Bld) [Entitic vol] 12.0 fL 8.1 - 13.5 fL [place] Platelets (Bld) [#/Vol] 188 10*3/uL [place] RBC (Bld) [#/Vol] 3.37 10*6/uL Low 3.95 - 5.1 1 m/uL [place] WBC (Bld) [#/Vol] 11.7 10*3/uL [place] WBC (Bld) [#/Vol] 0.2 10*3/uL High 0.0 per 100 WBC M [place] Metabolic Panelon 01-17-2020 GFR/1.73 sq M predicted among non-blacks MDRD (S/P/Bld) [Vol rate/Area] [place] Comment on above: Average GFR for 60-6 9 years old: 85 mL/min/1.73sq m Chronic Kidney Disease: <60 mL/min/1.73sq m Kidney failure: <15 mL/min/1.73sq m eGFR calculated using average adult body mass. Additional eGFR calculator available at: http://www.[employer].fanatix/multiple_crcl_2012.htm Stage 1: Some kidney damage normal GFR Stage 2: Mild kidney damage GFR 60-89 Stage 3: Moderate kidney damage GFR 30-59 Stage 4: Severe kidney damage GFR 15-29 Stage 5: Severe kidney damage GFR <15 ESRD - chronic treatment by dialysis or transplant Otheron 01-17-2020 Interpretation and review of laboratory results Abnormal [place] ANION GAPon 12-14-2019 Anion gap [Moles/Vol] 11.0 mmol/L Normal 8.0-16.0 [facility] Comment on above: Result Comment: ANIO N GAP = Sodium -(Chloride + CO2) Performed By: #### P OCGL #### [facility] [address] [place] [address] Anion Gapon 12-14-2019 Anion gap [Moles/Vol] 11.0 mmol/L 8 - 16 meq/L [place] Comment on above: ANION GAP = Sodium - (Chloride + CO2) Performed at [facility] [address] [place] [address] BASIC METABOL PANELon 2019 Calcium [Mass/Vol] 9.6 mg/dL Normal 8.5-10.5 [facility] Comment on above: Performed By: #### P OCGL #### [facility] [address] [place] [address]137 Chloride [Moles/Vol] 92 mmol/L Low 98-111 [facility] Comment on above: Performed By: #### P OCGL #### [facility] [address] [place] [address] 80313 CO2 [Moles/Vol] 34 mmol/L High 23-33 [facility] Comment on above: Performed By: #### P OCGL #### [facility] [address] [place] [address] 27039 Creatinine [Mass/Vol] 1.0 mg/dL Normal 0.4-1.2 [facility] Comment on above: Performed By: #### P OCGL #### [facility] [address] [place] [address] 84289 Glucose [Mass/Vol] 136 mg/dL High 70-108 [facility] Comment on above: Performed By: #### P OCGL #### [facility] [address] [place] [address] Potassium [Moles/Vol] 3.8 mmol/L Normal 3.5-5.2 [facility] Comment on above: Performed By: #### P OCGL #### [facility] [address] [place] [address] 70466 Sodium [Moles/Vol] 137 mmol/L Normal 135-145 [facility] Comment on above: Performed By: #### P OCGL #### [facility] [address] [place] [address] 99700 Urea nitrogen [Mass/Vol] 48 mg/dL High 7-22 [facility] Comment on above: Performed By: #### P OCGL #### [facility] [address] [place] [address] 96818 Basic Metabolic Panelon Calcium [Mass/Vol] 9.6 mg/dL 8.5 - 10. 5 mg/dL [place] Comment on above: Performed at [facility] [address] [place] [address] 96181 Chloride [Moles/Vol] 92 mmol/L Low 98 - 111 meq/L [place] CO2 [Moles/Vol] 34 mmol/L High 23 - 33 meq/L [place] Creatinine [Mass/Vol] 1 mg/dL 0.4 - 1.2 mg/d L [place] Glucose [Mass/Vol] 136 mg/dL High 70 - 108 mg/dL [place], [place] Potassium [Moles/Vol] 3.8 mmol/L 3.5 - 5.2 meq/ L [place] Sodium [Moles/Vol] 137 mmol/L 135 - 145 meq/L [place] Urea nitrogen [Mass/Vol] 48 mg/dL High 7 - 22 mg/dL [place] Brain Natriuretic Peptideon 12-14-2019 Interpretation and review of laboratory results Abnormal [place] Natriuretic peptide B (Bld) [Mass/Vol] 98623 pg/mL High 0 - 900 pg/mL [place] Comment on above: Values < 300 pg/ml rule out , or make the probability of heart failure highly unlikely. Values which rule in heart failue are as follows: AGE RANGE <50 years >450 pg/ml 50-75 years >900 pg/ml >75 years >1800 pg/ml Performed at [facility] [address] [place] [address] 17373 GFR, ESTIMATEDon 12-14-2019 GFR/1.73 sq M.predicted MDRD (S/P/Bld) [Vol rate/Area] 56 ml/min/1.73m2 Abnormal [facility] Comment on above: Result Comment: Stag e Description GFR, ml/min/1.73 m2 - At increased risk > or = 60 (with chronic kidney disease risk factors) 1 Normal or increased GFR > or = 90 2 Mildly or decreased GFR 60 - 89 3 Moderately decreased GFR 30 - 59 4 Severely decreased GFR 15 - 29 5 Kidney failure <15 (or dialysis) Estimated GFR calculated using abbreviated MDRD formula as recommended by National Kidney Foundation. Calculation based upon serum creatinine and adjusted for age, gender & race. Lashonda. Internal Med., Vol. 139 (2) pg 137-147. Performed By: #### P OCGL #### [facility] [address] [place] [address] 62785 GLUCOSE POCon 12-14-2019 Glucose [Mass/Vol] 216 mg/dL High 70-108 [facility] Comment on above: Performed By: #### B MP, MG, ANION, EGFR1, NTBNP, TROPT #### [facility] [address] [place] [address] 98593 Glucose [Mass/Vol] 143 mg/dL High 70-108 [facility] Comment on above: Performed By: #### P OCGL #### [facility] [address] [place] [address] 81265 Glomerular Filtration Rate, Estimatedon 12-14-2019 Est, Glom Filt Rate 56 Abnormal ml/min/1.73m2 [place] Comment on above: Stage Description GF R, ml/min/1.73 m2 - At increased risk > or = 60 (with chronic kidney disease risk factors) 1 Normal or increased GFR > or = 90 2 Mildly or decreased GFR 60 - 89 3 Moderately decreased GFR 30 - 59 4 Severely decreased GFR 15 - 29 5 Kidney failure <15 (or dialysis) Estimated GFR calculated using abbreviated MDRD formula as recommended by National Kidney Foundation. Calculation based upon serum creatinine and adjusted for age, gender & race. Lashonda. Internal Med., Vol. 139 (2) pg 137-147. Performed at [facility] [address] [place] [address] MAGNESIUMon 12-14-2019 Magnesium [Mass/Vol] 2.0 mg/dL Normal 1.6-2.4 [facility] Comment on above: Performed By: #### P OCGL #### [address] [address] Magnesiumon 12-14-2019 Magnesium [Mass/Vol] 2.0 mg/dL 1.6 - 2.4 mg/dL [place] Comment on above: Performed at [facility] [address] [place] [address] NT PRO-B NATRIURETIC PEPTIDE on 12-14-2019 Natriuretic peptide B (Bld) [Mass/Vol] 13836.0 pg/mL High 0.0-900.0 [facility] Comment on above: Result Comment: Valu es < 300 pg/ml rule out , or make the probability of heart failure highly unlikely. Values which rule in heart failue are as follows: AGE RANGE <50 years >450 pg/ml 50-75 years >900 pg/ml >75 years >1800 pg/ml Performed By: #### P OCGL #### [address] [address] Otheron 12-14-2019 Interpretation and review of laboratory results Abnormal [place] POCT glucoseon 12-14-2019 Glucose [Mass/Vol] 216 mg/dL High 70 - 108 mg/dl [place] Comment on above: Performed at [facility] [address] [place] [address] Interpretation and review of laboratory results Abnormal [place] Glucose [Mass/Vol] 143 mg/dL High 70 - 108 mg/dl [place] Comment on above: Performed at [facility] [address] [address] Interpretation and review of laboratory results Abnormal [facility] [place] XR CHEST (2 VW)on 12-14-2019 XR CHEST (2 VW) PROCEDURE: XR CHEST (2 VW) CLINICAL INFORMATION: shortness of breath. COMPARISON: Chest x-ray dated 12/13/2019 TECHNIQUE: Frontal and lateral views of the chest were obtained. FINDINGS: Lines/tubes/devices: No change in the left subclavian dual-lead AICD device. Lungs/pleura: There are stable mild bilateral interstitial infiltrates likely representing pulmonary edema. There is stable medial right basilar atelectasis. There is no consolidation. There is stable small bilateral pleural effusions. There is no pneumothorax. Heart: There is stable mild cardiomegaly. Mediastinum/willem: Previously noted right hilar prominence is less pronounced. Skeleton: No acute/significant bone or joint abnormality. IMPRESSION: Less pronounced right hilar prominence. Otherwise stable appearance of the chest compared to the prior study as detailed above. This report has been created using voice recognition software. It may contain minor errors which are inherent in voice recognition technology. Final report electronically signed by Dr. Wild Kline on 12/14/2019 6:50 AM Interpreted by: Wild Kline MD Signed by: Wild Kline MD 12/14/19 Final result Normal [facility], [facility] Incoming Radiant Results From [facility] - 12/14/2019 6:52 AM EDT PROCEDURE: XR CHEST (2 VW) CLINICAL INFORMATION: shortness of breath. COMPARISON: Chest x-ray dated 12/13/2019 TECHNIQUE: Frontal and lateral views of the chest were obtained. FINDINGS: Lines/tubes/devices: No change in the left subclavian dual-lead AICD device. Lungs/pleura: There are stable mild bilateral interstitial infiltrates likely representing pulmonary edema. There is stable medial right basilar atelectasis. There is no consolidation. There is stable small bilateral pleural effusions. There is no pneumothorax. Heart: There is stable mild cardiomegaly. Mediastinum/willem: Previously noted right hilar prominence is less pronounced. Skeleton: No acute/significant bone or joint abnormality. IMPRESSION: Less pronounced right hilar prominence. Otherwise stable appearance of the chest compared to the prior study as detailed above. This report has been created using voice recognition software. It may contain minor errors which are inherent in voice recognition technology. Final report electronically signed by Dr. Wild Kline on 12/14/2019 6:50 AM [place] PROCEDURE: XR CHEST (2 VW) CLINICAL INFORMATION: shortness of breath. COMPARISON: Chest x-ray dated 12/13/2019 TECHNIQUE: Frontal and lateral views of the chest were obtained. FINDINGS: Lines/tubes/devices: No change in the left subclavian dual-lead AICD device. Lungs/pleura: There are stable mild bilateral interstitial infiltrates likely representing pulmonary edema. There is stable medial right basilar atelectasis. There is no consolidation. There is stable small bilateral pleural effusions. There is no pneumothorax. Heart: There is stable mild cardiomegaly. Mediastinum/willem: Previously noted right hilar prominence is less pronounced. Skeleton: No acute/significant bone or joint abnormality. [place] Less pronounced right hilar prominence. Otherwise stable appearance of the chest compared to the prior study as detailed above. This report has been created using voice recognition software. It may contain minor errors which are inherent in voice recognition technology. Final report electronically signed by Dr. Wild Kline on 12/14/2019 6:50 AM [place] ANION GAPon 12-13-2019 Anion gap [Moles/Vol] 12.0 mmol/L Normal 8.0-16.0 [facility] Comment on above: Result Comment: ANIO N GAP = Sodium -(Chloride + CO2) Performed By: #### P OCGL #### [facility] [address] [place] [address] Anion Gapon 12-13-2019 Anion gap [Moles/Vol] 12.0 mmol/L 8 - 16 meq/L [place] Comment on above: ANION GAP = Sodium - (Chloride + CO2) Performed at [facility] [address] [place] [address] BASIC METABOL PANELon 2019 Calcium [Mass/Vol] 9.4 mg/dL Normal 8.5-10.5 [facility] Comment on above: Performed By: #### P OCGL #### [facility] [address] [place] [address] 87942 Chloride [Moles/Vol] 92 mmol/L Low 98-111 [facility] Comment on above: Performed By: #### P OCGL #### [facility] [address] [place] [address] 40658 CO2 [Moles/Vol] 36 mmol/L High 23-33 [facility] Comment on above: Performed By: #### P OCGL #### [facility] [address] [place] [address]237 Creatinine [Mass/Vol] 1.1 mg/dL Normal 0.4-1.2 [facility] Comment on above: Performed By: #### P OCGL #### [facility] [address] [place] [address]15 Glucose [Mass/Vol] 128 mg/dL High 70-108 [facility] Comment on above: Performed By: #### P OCGL #### [facility] [email or web address] [address] [place] [address]1079 Potassium [Moles/Vol] 4.1 mmol/L Normal 3.5-5.2 [facility] Comment on above: Performed By: #### P OCGL #### [facility] [email or web address] [address] [place] [address] 16996 Sodium [Moles/Vol] 140 mmol/L Normal 135-145 [facility] Comment on above: Performed By: #### P OCGL #### [facility] [email or web address] [address] [place] [address] 45470 Urea nitrogen [Mass/Vol] 54 mg/dL High 7-22 [facility] Comment on above: Performed By: #### P OCGL #### [facility] [email or web address] [address] [place] [address] 42338 Basic Metabolic Panelon 08-0 Calcium [Mass/Vol] 9.4 mg/dL 8.5 - 10. 5 mg/dL [facility], [place] Comment on above: Performed at [facility] [address] [place] [address] 89470 Chloride [Moles/Vol] 92 mmol/L Low 98 - 111 meq/L [facility], [place] CO2 [Moles/Vol] 36 mmol/L High 23 - 33 meq/L [place] Creatinine [Mass/Vol] 1.1 mg/dL 0.4 - 1.2 mg/d L [place] Glucose [Mass/Vol] 128 mg/dL High 70 - 108 mg/dL [place] Potassium [Moles/Vol] 4.1 mmol/L 3.5 - 5.2 meq/ L [place] Sodium [Moles/Vol] 140 mmol/L 135 - 145 meq/L [place] Urea nitrogen [Mass/Vol] 54 mg/dL High 7 - 22 mg/dL [place] Brain Natriuretic Peptideon 12-13-2019 Interpretation and review of laboratory results Abnormal [place] Natriuretic peptide B (Bld) [Mass/Vol] 5938 pg/mL High 0 - 900 pg/mL [place] Comment on above: Values < 300 pg/ml rule out , or make the probability of heart failure highly unlikely. Values which rule in heart failue are as follows: AGE RANGE <50 years >450 pg/ml 50-75 years >900 pg/ml >75 years >1800 pg/ml Performed at [facility] [address] [place] [address] GFR, ESTIMATEDon 12-13-2019 GFR/1.73 sq M.predicted MDRD (S/P/Bld) [Vol rate/Area] 50 ml/min/1.73m2 Abnormal [facility] Comment on above: Result Comment: Mitchell vgea Description GFR, ml/min/1.73 m2 - At increased risk > or = 60 (with chronic kidney disease risk factors) 1 Normal or increased GFR > or = 90 2 Mildly or decreased GFR 60 - 89 3 Moderately decreased GFR 30 - 59 4 Severely decreased GFR 15 - 29 5 Kidney failure <15 (or dialysis) Estimated GFR calculated using abbreviated MDRD formula as recommended by National Kidney Foundation. Calculation based upon serum creatinine and adjusted for age, gender & race. Lashonda. Internal Med., Vol. 139 (2) pg 137-147. Performed By: #### P OCGL #### [facility] [address] [place] [address] GLUCOSE POCon 12-13-2019 Glucose [Mass/Vol] 280 mg/dL High 70-108 [facility] Comment on above: Performed By: #### P OCGL #### [facility] [address] [place] [address] Glucose [Mass/Vol] 191 mg/dL [facility] 70-108 [facility] Comment on above: Performed By: #### P OCGL ####[facility] [address] [place] [address] Glucose [Mass/Vol] 168 mg/dL [facility] 70-108 [facility] Comment on above: Performed By: #### B MP, MG, ANION, EGFR1, NTBNP, TROPT #### [facility] [address] [place] [address] Glucose [Mass/Vol] 122 mg/dL [facility] 70-108 [facility] Comment on above: Performed By: #### P OCGL #### [facility] [address] [place] [address]493 Glomerular Filtration Rate, Estimatedon 12-13-2019 Est, Glom Filt Rate 50 Abnormal ml/min/1.73m2 [place] Comment on above: Stage Description GF R, ml/min/1.73 m2 - At increased risk > or = 60 (with chronic kidney disease risk factors) 1 Normal or increased GFR > or = 90 2 Mildly or decreased GFR 60 - 89 3 Moderately decreased GFR 30 - 59 4 Severely decreased GFR 15 - 29 5 Kidney failure <15 (or dialysis) Estimated GFR calculated using abbreviated MDRD formula as recommended by National Kidney Foundation. Calculation based upon serum creatinine and adjusted for age, gender & race. Lashonda. Internal Med., Vol. 139 (2) pg 137-147. Performed at [facility] [address] [place] [address] MAGNESIUMon 12-13-2019 Magnesium [Mass/Vol] 2.0 mg/dL Normal 1.6-2.4 [facility] Comment on above: Performed By: #### P OCGL #### [facility] [employer] [address] [address] Magnesiumon 12-13-2019 Magnesium [Mass/Vol] 2.0 mg/dL 1.6 - 2.4 mg/dL [place] Comment on above: Performed at [facility] [address] [place] [address] NT PRO-B NATRIURETIC PEPTIDE on 12-13-2019 Natriuretic peptide B (Bld) [Mass/Vol] 5938.0 pg/mL High 0.0-900.0 [facility] Comment on above: Result Comment: Valu es < 300 pg/ml rule out , or make the probability of heart failure highly unlikely. Values which rule in heart failue are as follows: AGE RANGE <50 years >450 pg/ml 50-75 years >900 pg/ml >75 years >1800 pg/ml Performed By: #### P OCGL #### [facility] [address] [place] [address]35[address] Otheron 12-13-2019 Interpretation and review of laboratory results Abnormal [place] POCT Glucoseon 12-13-2019 Glucose [Mass/Vol] 280 mg/dL High 70 - 108 mg/dl [place] Comment on above: Performed at [facility] [address] [place] [address] Interpretation and review of laboratory results Abnormal [place] POCT glucoseon 12-13-2019 Glucose [Mass/Vol] 191 mg/dL High 70 - 108 mg/dl [place] Comment on above: Performed at [facility] [address] [place] [address] Interpretation and review of laboratory results Abnormal [place] Glucose [Mass/Vol] 168 mg/dL High 70 - 108 mg/dl [place] Comment on above: Performed at [facility] [address] [place] [address] Interpretation and review of laboratory results Abnormal [place] Glucose [Mass/Vol] 122 mg/dL High 70 - 108 mg/dl [place] Comment on above: Performed at [facility] [address] [place] [address] Interpretation and review of laboratory results Abnormal [place] XR CHEST (2 VW)on 12-13-2019 XR CHEST (2 VW) PROCEDURE: XR CHEST (2 VW) CLINICAL INFORMATION: shortness of breath. COMPARISON: Chest x-ray dated 12/11/2019 TECHNIQUE: Frontal and lateral views of the chest were obtained. FINDINGS: Lungs/pleura: Previously noted alveolar interstitial pulmonary edema has improved. There is no focal pneumonia. 4 small bilateral pleural effusions.. No pneumothorax. Heart: There is stable mild to moderate cardiomegaly. Mediastinum/willem: Right hilum remains prominent. Left hilar and mediastinal silhouettes are unremarkable. Skeleton: No acute/significant bone or joint abnormality. Lines/tubes/devices: There is a stable left subclavian dual lead AICD device, leads in the regions of the right atrium and right ventricle. IMPRESSION: Improving pulmonary edema, now interstitial in distribution. Small bilateral pleural effusions. Cardiomegaly. Stable right hilar prominence. This report has been created using voice recognition software. It may contain minor errors which are inherent in voice recognition technology. Final report electronically signed by Dr. Wild Kline on 12/13/2019 6:48 AM Interpreted by: Wild Kline MD Signed by: Wild Kline MD 12/13/19 Final result Normal [facility] Improving pulmonary edema, now interstitial in distribution. Small bilateral pleural effusions. Cardiomegaly. Stable right hilar prominence. This report has been created using voice recognition software. It may contain minor errors which are inherent in voice recognition technology. Final report electronically signed by Dr. Wild Kline on 12/13/2019 6:48 AM [facility] [place] [place] [facility], [facility] Incoming Radiant Results From [facility] - 12/13/2019 6:50 AM EDT PROCEDURE: XR CHEST (2 VW) CLINICAL INFORMATION: shortness of breath. COMPARISON: Chest x-ray dated 12/11/2019 TECHNIQUE: Frontal and lateral views of the chest were obtained. FINDINGS: Lungs/pleura: Previously noted alveolar interstitial pulmonary edema has improved. There is no focal pneumonia. 4 small bilateral pleural effusions.. No pneumothorax. Heart: There is stable mild to moderate cardiomegaly. Mediastinum/willem: Right hilum remains prominent. Left hilar and mediastinal silhouettes are unremarkable. Skeleton: No acute/significant bone or joint abnormality. Lines/tubes/devices: There is a stable left subclavian dual lead AICD device, leads in the regions of the right atrium and right ventricle. IMPRESSION: Improving pulmonary edema, now interstitial in distribution. Small bilateral pleural effusions. Cardiomegaly. Stable right hilar prominence. This report has been created using voice recognition software. It may contain minor errors which are inherent in voice recognition technology. Final report electronically signed by Dr. Wild Kline on 12/13/2019 6:48 AM [place] PROCEDURE: XR CHEST (2 VW) CLINICAL INFORMATION: shortness of breath. COMPARISON: Chest x-ray dated 12/11/2019 TECHNIQUE: Frontal and lateral views of the chest were obtained. FINDINGS: Lungs/pleura: Previously noted alveolar interstitial pulmonary edema has improved. There is no focal pneumonia. 4 small bilateral pleural effusions.. No pneumothorax. Heart: There is stable mild to moderate cardiomegaly. Mediastinum/willem: Right hilum remains prominent. Left hilar and mediastinal silhouettes are unremarkable. Skeleton: No acute/significant bone or joint abnormality. Lines/tubes/devices: There is a stable left subclavian dual lead AICD device, leads in the regions of the right atrium and right ventricle. [place] ANION GAPon 12-12-2019 Anion gap [Moles/Vol] 9.0 mmol/L Normal 8.0-16.0 [facility] Comment on above: Result Comment: ANIO N GAP = Sodium -(Chloride + CO2) Performed By: #### B MP, MG, ANION, EGFR1, NTBNP, TROPT #### [facility] [address] [place] [address] 236[address] Anion Gapon 12-12-2019 Anion gap [Moles/Vol] 9.0 mmol/L 8 - 16 meq/L [place] Comment on above: ANION GAP = Sodium - (Chloride + CO2) Performed at [facility] [address] [place] [address] BASIC METABOL PANELon 2019 Calcium [Mass/Vol] 9.5 mg/dL Normal 8.5-10.5 [facility] Comment on above: Performed By: #### B MP, MG, ANION, EGFR1, NTBNP, TROPT #### [facility] [address] [place] [address] Chloride [Moles/Vol] 96 mmol/L Low 98-111 [facility] Comment on above: Performed By: #### B MP, MG, ANION, EGFR1, NTBNP, TROPT #### [address] [address] CO2 [Moles/Vol] 35 mmol/L High 23-33 [facility] Comment on above: Performed By: #### B MP, MG, ANION, EGFR1, NTBNP, TROPT #### [address] [address] Creatinine [Mass/Vol] 1.1 mg/dL Normal 0.4-1.2 [facility] Comment on above: Performed By: #### B MP, MG, ANION, EGFR1, NTBNP, TROPT #### [address] [address] Glucose [Mass/Vol] 150 mg/dL High 70-108 [facility] Comment on above: Performed By: #### B MP, MG, ANION, EGFR1, NTBNP, TROPT #### [address] [address] Potassium [Moles/Vol] 4.2 mmol/L Normal 3.5-5.2 [facility] Comment on above: Performed By: #### B MP, MG, ANION, EGFR1, NTBNP, TROPT #### [address] [address] Sodium [Moles/Vol] 140 mmol/L Normal 135-145 [facility] Comment on above: Performed By: #### B MP, MG, ANION, EGFR1, NTBNP, TROPT #### [facility] [address] [place] [address] Urea nitrogen [Mass/Vol] 43 mg/dL High 7-22 [facility] Comment on above: Performed By: #### B MP, MG, ANION, EGFR1, NTBNP, TROPT #### [facility] [address] [place] [address] Basic Metabolic Panelon 08-0 -2019 Calcium [Mass/Vol] 9.5 mg/dL 8.5 - 10. 5 mg/dL [facility], [place] Comment on above: Performed at [facility] [address] [place] [address] Chloride [Moles/Vol] 96 mmol/L Low 98 - 111 meq/L [place] CO2 [Moles/Vol] 35 mmol/L High 23 - 33 meq/L [place] Creatinine [Mass/Vol] 1.1 mg/dL 0.4 - 1.2 mg/d L [place] Glucose [Mass/Vol] 150 mg/dL High 70 - 108 mg/dL [place], [place] Potassium [Moles/Vol] 4.2 mmol/L 3.5 - 5.2 meq/ L [place] Sodium [Moles/Vol] 140 mmol/L 135 - 145 meq/L [place] Urea nitrogen [Mass/Vol] 43 mg/dL High 7 - 22 mg/dL [place] CBC WITH DIFFERENTIALon 08-0 ABS IMMATURE GRANS (IG) 0.06 thou/mm3 Normal 0.00-0.07 [facility] Comment on above: Performed By: #### B MP, MG, ANION, EGFR1, NTBNP, TROPT #### [facility] [address] [place] [address] ABS NEUTROPHILS 9.8 thou/mm3 High 1.8-7.7 [facility] Comment on above: Performed By: #### B MP, MG, ANION, EGFR1, NTBNP, TROPT #### [facility] [address] [place] [address] Basophils (Bld) [#/Vol] 0.0 thou/mm3 Normal 0.0-0.1 [facility] Comment on above: Performed By: #### B MP, MG, ANION, EGFR1, NTBNP, TROPT #### [facility] [address] [place] [address] Basophils/100 WBC (Bld) 0.2 % Normal [facility] Comment on above: Performed By: #### B MP, MG, ANION, EGFR1, NTBNP, TROPT #### [facility] [address] [place] [address] Eosinophils (Bld) [#/Vol] 0.0 thou/mm3 Normal 0.0-0.4 [facility] Comment on above: Performed By: #### B MP, MG, ANION, EGFR1, NTBNP, TROPT #### [address] [address] Eosinophils/100 WBC (Bld) 0.2 % Normal [facility] Comment on above: Performed By: #### B MP, MG, ANION, EGFR1, NTBNP, TROPT #### [address] [address] Erythrocyte distribution width (RBC) [Ratio] 18.6 % High 11.5-14.5 [facility] Comment on above: Performed By: #### B MP, MG, ANION, EGFR1, NTBNP, TROPT #### [address] [address] Hematocrit (Bld) [Volume fraction] 37.9 % Normal 37.0-47.0 [facility] Comment on above: Performed By: #### B MP, MG, ANION, EGFR1, NTBNP, TROPT #### [address] [address] Hemoglobin (Bld) [Mass/Vol] 11.0 gm/dl Low 12.0-16.0 [facility] Comment on above: Performed By: #### B MP, MG, ANION, EGFR1, NTBNP, TROPT #### [address] [address] IMMATURE GRANS (IG) 0.5 % Normal [facility] Comment on above: Performed By: #### B MP, MG, ANION, EGFR1, NTBNP, TROPT #### [address] [address] Lymphocytes (Bld) [#/Vol] 1.4 thou/mm3 Normal 1.0-4.8 [facility] Comment on above: Performed By: #### B MP, MG, ANION, EGFR1, NTBNP, TROPT #### [address] [address] Lymphocytes/100 WBC (Bld) 11.2 % Normal [facility] Comment on above: Performed By: #### B MP, MG, ANION, EGFR1, NTBNP, TROPT #### [address] [address] MCH (RBC) [Entitic mass] 24.8 pg Low 26.0-33.0 [facility] Comment on above: Performed By: #### B MP, MG, ANION, EGFR1, NTBNP, TROPT #### [address] [address] MCHC (RBC) [Mass/Vol] 29.0 gm/dl Low 32.2-35.[address] [facility] Comment on above: Performed By: #### B MP, MG, ANION, EGFR1, NTBNP, TROPT #### [address] [address] MCV (RBC) [Entitic vol] 85.4 fL Normal 81.0-99.0 [facility] Comment on above: Performed By: #### B MP, MG, ANION, EGFR1, NTBNP, TROPT #### [address] [address] Monocytes (Bld) [#/Vol] 1.0 thou/mm3 Normal 0.4-1.3 [facility] Comment on above: Performed By: #### B MP, MG, ANION, EGFR1, NTBNP, TROPT #### [address] [address] Monocytes/100 WBC (Bld) 8.4 % Normal [facility] Comment on above: Performed By: #### B MP, MG, ANION, EGFR1, NTBNP, TROPT #### [address] [address] Neutrophils/100 WBC (Bld) 79.5 % Normal [facility] Comment on above: Performed By: #### B MP, MG, ANION, EGFR1, NTBNP, TROPT #### [address] [address] Nucleated RBC/100 WBC (Bld) [Ratio] 0 /100 wbc Normal [facility] Comment on above: Performed By: #### B MP, MG, ANION, EGFR1, NTBNP, TROPT #### [address] [address] Platelet mean volume (Bld) [Entitic vol] 12.2 fL Normal 9.4-12.4 [facility] Comment on above: Performed By: #### B MP, MG, ANION, EGFR1, NTBNP, TROPT #### [address] [address] Platelets (Bld) [#/Vol] 188 thou/mm3 Normal 130-400 [facility] Comment on above: Performed By: #### B MP, MG, ANION, EGFR1, NTBNP, TROPT #### [address] [address] RBC (Bld) [#/Vol] 4.44 mill/mm3 Normal 4.20-5.40 [facility] Comment on above: Performed By: #### B MP, MG, ANION, EGFR1, NTBNP, TROPT #### [address] [address] RDW-SD 56.5 fL High 35.0-45.0 [facility] Comment on above: Performed By: #### B MP, MG, ANION, EGFR1, NTBNP, TROPT #### [address] [address] WBC (Bld) [#/Vol] 12.3 thou/mm3 High 4.8-10.8 [facility] Comment on above: Performed By: #### B MP, MG, ANION, EGFR1, NTBNP, TROPT #### [address] [address] CBC auto differentialon 08-0 -2019 Basophils (Bld) [#/Vol] 0.0 10*3/uL [facility], [place] Basophils/100 WBC (Bld) 0.2 % [place] Eosinophils (Bld) [#/Vol] 0.0 10*3/uL [place] Eosinophils/100 WBC (Bld) 0.2 % [place] Erythrocyte distribution width (RBC) [Ratio] 18.6 % High 11.5 - 14.5 % [place] Hematocrit (Bld) [Volume fraction] 37.9 % 37 - 47 % [place] Hemoglobin (Bld) [Mass/Vol] 11.0 g/dL Low [place] Immature Grans (Abs) 0.06 [place] Immature granulocytes (Bld) [#/Vol] 0.5 % [place] Interpretation and review of laboratory results Abnormal [place] Lymphocytes (Bld) [#/Vol] 1.4 10*3/uL [place] Lymphocytes/100 WBC (Bld) 11.2 % [place] MCH (RBC) [Entitic mass] 24.8 pg Low 26 - 33 pg [place] MCHC (RBC) [Mass/Vol] 29.0 g/dL [place] MCV (RBC) [Entitic vol] 85.4 fL 81 - 99 fL [place] Monocytes (Bld) [#/Vol] 1.0 10*3/uL [place] Monocytes/100 WBC (Bld) 8.4 % [place] Nucleated RBC/100 WBC (Bld) [Ratio] 0 % /100 wbc [place] Comment on above: Performed at [facility] [address] [place] [address] Platelet mean volume (Bld) [Entitic vol] 12.2 fL 9.4 - 12.4 fL [place] Platelets (Bld) [#/Vol] 188 10*3/uL [place] RBC (Bld) [#/Vol] 4.44 10*6/uL [place] RDW-SD 56.5 fL High 35 - 45 fL [place] Segmented neutrophils/100 WBC (Bld) 79.5 % [place] Segs Absolute 9.8 [place] WBC (Bld) [#/Vol] 12.3 10*3/uL [facility] [place], [place] GFR, ESTIMATEDon 12-12-2019 GFR/1.73 sq M.predicted MDRD (S/P/Bld) [Vol rate/Area] 50 ml/min/1.73m2 Abnormal [facility] Comment on above: Result Comment: Mitchell vega Description GFR, ml/min/1.73 m2 - At increased risk > or = 60 (with chronic kidney disease risk factors) 1 Normal or increased GFR > or = 90 2 Mildly or decreased GFR 60 - 89 3 Moderately decreased GFR 30 - 59 4 Severely decreased GFR 15 - 29 5 Kidney failure <15 (or dialysis) Estimated GFR calculated using abbreviated MDRD formula as recommended by National Kidney Foundation. Calculation based upon serum creatinine and adjusted for age, gender & race. Lashonda. Internal Med., Vol. 139 (2) pg 137-147. Performed By: #### B MP, MG, ANION, EGFR1, NTBNP, TROPT #### [facility] [address] [place] [address] GLUCOSE POCon 12-12-2019 Glucose [Mass/Vol] 167 mg/dL [address] Comment on above: Performed By: #### B MP, MG, ANION, EGFR1, NTBNP, TROPT #### [facility] [address] [place] [address] Glucose [Mass/Vol] 159 mg/dL [address] Comment on above: Performed By: #### B MP, MG, ANION, EGFR1, NTBNP, TROPT #### [facility] [address] [place] [address] Glucose [Mass/Vol] 156 mg/dL [address] Comment on above: Performed By: #### P OCGL #### [facility] [address] [place] [address] Glucose [Mass/Vol] 141 mg/dL [address] Comment on above: Performed By: #### B MP, MG, ANION, EGFR1, NTBNP, TROPT #### [facility] [address] [place] [address] Glomerular Filtration Rate, Estimatedon 12-12-2019 Est, Glom Filt Rate 50 Abnormal ml/min/1.73m2 [place], [place] Comment on above: Stage Description GF R, ml/min/1.73 m2 - At increased risk > or = 60 (with chronic kidney disease risk factors) 1 Normal or increased GFR > or = 90 2 Mildly or decreased GFR 60 - 89 3 Moderately decreased GFR 30 - 59 4 Severely decreased GFR 15 - 29 5 Kidney failure <15 (or dialysis) Estimated GFR calculated using abbreviated MDRD formula as recommended by National Kidney Foundation. Calculation based upon serum creatinine and adjusted for age, gender & race. Lashonda. Internal Med., Vol. 139 (2) pg 137-147. Performed at [facility] [address] [place] [address] HEMOGLOBIN A1Con 12-12-2019 HbA1c (Bld) [Mass fraction] 6.3 % Normal 4.4-6.4 [facility] Comment on above: Performed By: #### B MP, MG, ANION, EGFR1, NTBNP, TROPT #### [facility] [address] [place] [address] HbA1c (Bld) [Mass fraction] 129 mg/dL High 70-126 [facility] Comment on above: Performed By: #### B MP, MG, ANION, EGFR1, NTBNP, TROPT #### [facility] [address] [place] [address] Hemoglobin A1con 12-12-2019 Glucose [Mass/Vol] 129 mg/dL High 70 - 126 mg/dL [place], [place] Comment on above: Performed at [facility] [address] [place] [address] HbA1c (Bld) [Mass fraction] 6.3 % 4.4 - 6.4 % [place] Interpretation and review of laboratory results Abnormal [place] LIPID PANELon 12-12-2019 Cholesterol [Mass/Vol] 135 mg/dL Normal 100-199 [facility] Comment on above: Result Comment: <200 Desirable 200 - 239 Borderline High >239 High Performed By: #### B MP, MG, ANION, EGFR1, NTBNP, TROPT #### [facility] [address] [address] Cholesterol in HDL [Mass/Vol] 37 mg/dL Normal [facility] Comment on above: Result Comment: Refe r to General Chemistry for CHOL and TRIG results. HDL CLASSIFICATIONS FOR PATIENTS > 20 YEARS OLD. <40 Undesirable (Major Risk Factor) >60 Protective (Negative Risk Factor) Performed By: #### B MP, MG, ANION, EGFR1, NTBNP, TROPT #### [facility] [employer] [facility] [address] [place] [address] Cholesterol in LDL [Mass/Vol] 77 mg/dL Normal [facility] Comment on above: Result Comment: Refe r to General Chemistry for CHOL and TRIG results. LDL CLASSIFICATIONS FOR PATIENTS >20 YEARS OLD: Determination Invalid if TRIG >400 <100 Optimal 100 - 129 Near or Above Optimal 130 - 159 Borderline High 160 - 189 High Risk >189 Very High Risk Performed By: #### B MP, MG, ANION, EGFR1, NTBNP, TROPT #### [facility] [address] [place] [address] Triglyceride [Mass/Vol] 107 mg/dL Normal 0-199 [facility] Comment on above: Result Comment: <150 Desirable 150 - 199 Borderline High 200 - 499 High >449 Very High Ranges are based upon NCEP/ATP III guidelines. Performed By: #### B MP, MG, ANION, EGFR1, NTBNP, TROPT #### [facility] [address] [place] [address] Lipid panel - fastingon 08- Cholesterol [Mass/Vol] 135 mg/dL 100 - 199 mg/dL [place] Comment on above: <200 Desirable 200 - 239 Borderline High >239 High Cholesterol in HDL [Mass/Vol] 37 mg/dL [place] Comment on above: Refer to General Thi brittany for CHOL and TRIG results. HDL CLASSIFICATIONS FOR PATIENTS > 20 YEARS OLD. <40 Undesirable (Major Risk Factor) >60 Protective (Negative Risk Factor) Cholesterol in LDL [Mass/Vol] 77 mg/dL [place] Comment on above: Refer to General Thi brittany for CHOL and TRIG results. LDL CLASSIFICATIONS FOR PATIENTS >20 YEARS OLD: Determination Invalid if TRIG >400 <100 Optimal 100 - 129 Near or Above Optimal 130 - 159 Borderline High 160 - 189 High Risk >189 Very High Risk Performed at [facility] [address] [place] [address] Triglyceride [Mass/Vol] 107 mg/dL 0 - 199 mg/dL [place] Comment on above: <150 Desirable 150 - 199 Borderline High 200 - 499 High >449 Very High Ranges are based upon NCEP/ATP III guidelines. MAGNESIUMon 12-12-2019 Magnesium [Mass/Vol] 2.1 mg/dL Normal 1.6-2.4 [facility] Comment on above: Performed By: #### B MP, MG, ANION, EGFR1, NTBNP, TROPT #### [facility] [address] [place] [address] Magnesiumon 12-12-2019 Magnesium [Mass/Vol] 2.1 mg/dL 1.6 - 2.4 mg/dL [place] Comment on above: Performed at [facility] [address] [place] [address] Otheron 12-12-2019 Interpretation and review of laboratory results Abnormal [place] POCT glucoseon 12-12-2019 Glucose [Mass/Vol] 167 mg/dL High 70 - 108 mg/dl [place] Comment on above: Performed at [facility] [address] [place] [address] Interpretation and review of laboratory results Abnormal [place] Glucose [Mass/Vol] 159 mg/dL High 70 - 108 mg/dl [place] Comment on above: Performed at [facility] [address] [place] [address] Interpretation and review of laboratory results Abnormal [place] Glucose [Mass/Vol] 156 mg/dL High 70 - 108 mg/dl [place] Comment on above: Performed at [facility] [address] [place] [address] Interpretation and review of laboratory results Abnormal [place] ANION GAPon 12-11-2019 Anion gap [Moles/Vol] 8.0 mmol/L Normal 8.0-16.0 [facility] Comment on above: Result Comment: ANIO N GAP = Sodium -(Chloride + CO2) Performed By: #### B MP, MG, ANION, EGFR1, NTBNP, TROPT #### [facility] [address] [place] [address] Anion Gapon 12-11-2019 Anion gap [Moles/Vol] 8.0 mmol/L 8 - 16 meq/L [facility] [place] Comment on above: ANION GAP = Sodium - (Chloride + CO2) Performed at [facility] [address] [place] [address] BASIC METABOL PANELon 2019 Calcium [Mass/Vol] 9.1 mg/dL Normal 8.5-10.5 [facility] Comment on above: Performed By: #### B MP, MG, ANION, EGFR1, NTBNP, TROPT #### [address] [address] Chloride [Moles/Vol] 97 mmol/L Low 98-111 [facility] Comment on above: Performed By: #### B MP, MG, ANION, EGFR1, NTBNP, TROPT #### [address] [address] CO2 [Moles/Vol] 36 mmol/L High 23-33 [facility] Comment on above: Performed By: #### B MP, MG, ANION, EGFR1, NTBNP, TROPT #### [address] [address] Creatinine [Mass/Vol] 0.8 mg/dL Normal 0.4-1.2 [facility] Comment on above: Performed By: #### B MP, MG, ANION, EGFR1, NTBNP, TROPT #### [facility] [address] [place] [address] Glucose [Mass/Vol] 250 mg/dL High 70-108 [facility] Comment on above: Performed By: #### B MP, MG, ANION, EGFR1, NTBNP, TROPT #### [address] [address] Potassium [Moles/Vol] 4.5 mmol/L Normal 3.5-5.2 [facility] Comment on above: Performed By: #### B MP, MG, ANION, EGFR1, NTBNP, TROPT #### [facility] [employer] [facility] [address] [place] [address] Sodium [Moles/Vol] 141 mmol/L Normal 135-145 [facility] Comment on above: Performed By: #### B MP, MG, ANION, EGFR1, NTBNP, TROPT #### [facility] [employer] [facility] [address] [place] [address] Urea nitrogen [Mass/Vol] 23 mg/dL High 7-22 [facility] Comment on above: Performed By: #### B MP, MG, ANION, EGFR1, NTBNP, TROPT #### [facility] [employer] [facility] [address] [place] [address] Basic Metabolic Panelon Calcium [Mass/Vol] 9.1 mg/dL 8.5 - 10. 5 mg/dL [place] Comment on above: Performed at [facility] [address] [place] [address] Chloride [Moles/Vol] 97 mmol/L Low 98 - 111 meq/L [place] CO2 [Moles/Vol] 36 mmol/L High 23 - 33 meq/L [place] Creatinine [Mass/Vol] 0.8 mg/dL 0.4 - 1.2 mg/d L [place] Glucose [Mass/Vol] 250 mg/dL High 70 - 108 mg/dL [place] Potassium [Moles/Vol] 4.5 mmol/L 3.5 - 5.2 meq/ L [place] Sodium [Moles/Vol] 141 mmol/L 135 - 145 meq/L [place] Urea nitrogen [Mass/Vol] 23 mg/dL High 7 - 22 mg/dL [place] Blood Gas, Arterialon 2019 Lluvia Test Positive [place] Base Excess (Calculated) 9.8 mmol/l High -2.5 - 2.5 mmol/l [place] COLLECTED BY: [id number] [place], [place] Comment on above: Performed at [facility] [address] [place] [address] DEVICE Cannula [place] HCO3 (Bld) [Moles/Vol] 38 mmol/L High 23 - 28 mmol/l [place] IFIO2 3 [place] Interpretation and review of laboratory results Abnormal [place] Oxygen (Bld) [Partial pressure] 52 mm[Hg] Low [place] Oxygen saturation in Blood 84 % [place] PCO2 65 High [place] pH, Blood Gas 7.37 [place], [place] Source: L Radial [place] Lluvia Test Positive [place] Base Excess (Calculated) 9.3 mmol/l High -2.5 - 2.5 mmol/l [place] COLLECTED BY: [id number] [place] Comment on above: Performed at [facility] [address] [place] [address] DEVICE Venti Mask [place] HCO3 (Bld) [Moles/Vol] 38 mmol/L High 23 - 28 mmol/l [place] IFIO2 50 [place] Interpretation and review of laboratory results Abnormal [place] Oxygen (Bld) [Partial pressure] 74 mm[Hg] [place] Oxygen saturation in Blood 93 % [place] PCO2 72 Critically high [place], [place] pH, Blood Gas 7.33 Low [place] Source: R Radial [place] Brain Natriuretic Peptideon 12-11-2019 Natriuretic peptide B (Bld) [Mass/Vol] 47580 pg/mL High 0 - 900 pg/mL [place] Comment on above: Values < 300 pg/ml rule out , or make the probability of heart failure highly unlikely. Values which rule in heart failue are as follows: AGE RANGE <50 years >450 pg/ml 50-75 years >900 pg/ml >75 years >1800 pg/ml Performed at [facility] [address] [place] [address] EKG 12 Leadon 12-11-2019 Atrial Rate 88 BPM [place] P Ada 53 degrees [place] P-R Interval 158 ms [place] Q-T Interval 456 ms [facility], [facility] QRS Duration 174 ms [facility], [facility] QTc Calculation (Bazett) 551 ms [facility], [facility] R Ada 83 degrees [facility], [facility] T Ada -51 degrees [facility], [facility] Urea nitrogen [Mass/Vol] Normal sinus rhythm Possible Left atrial enlargement Right bundle branch block T wave abnormality, consider inferior ischemia Abnormal ECG No previous ECGs available Confirmed by MARNI ORANTES ([id number]) on 12/11/2019 8:20:45 PM [facility], [facility] Ventricular Rate 88 BPM [facility], [facility], [facility] Incoming [place] Results - 12/11/2019 8:20 PM EDT Normal sinus rhythm Possible Left atrial enlargement Right bundle branch block T wave abnormality, consider inferior ischemia Abnormal ECG No previous ECGs available Confirmed by MARNI ORANTES ([id number]) on 12/11/2019 8:20:45 PM [facility] 12-LEADon 12-11-2019 EKG 12-LEAD 88 88 158 [phone] 83 -51 Normal sinus rhythm Possible Left atrial enlargement Right bundle branch block T wave abnormality, consider inferior ischemia Abnormal ECG No previous ECGs available Confirmed by MARNI ORANTES ([id number]) on 12/11/2019 8:20:45 PM [email or web address] [id number]&Date=06-18-19 20&Time=[id number] %3a00&TestType=ECG&S ite=3&OutputType=PDF &Ext=PDF Normal [facility] GFR, ESTIMATEDon 12-11-2019 GFR/1.73 sq M.predicted MDRD (S/P/Bld) [Vol rate/Area] 73 ml/min/1.73m2 Abnormal [facility] Comment on above: Result Comment: Mitchell vega Description GFR, ml/min/1.73 m2 - At increased risk > or = 60 (with chronic kidney disease risk factors) 1 Normal or increased GFR > or = 90 2 Mildly or decreased GFR 60 - 89 3 Moderately decreased GFR 30 - 59 4 Severely decreased GFR 15 - 29 5 Kidney failure <15 (or dialysis) Estimated GFR calculated using abbreviated MDRD formula as recommended by National Kidney Foundation. Calculation based upon serum creatinine and adjusted for age, gender & race. Lashonda. Internal Med., Vol. 139 (2) pg 137-147. Performed By: #### B MP, MG, ANION, EGFR1, NTBNP, TROPT #### [facility] [address] [place] [address] Glomerular Filtration Rate, Estimatedon 12-11-2019 Est, Glom Filt Rate 73 Abnormal ml/min/1.73m2 [facility] [place], [place] Comment on above: Stage Description GF R, ml/min/1.73 m2 - At increased risk > or = 60 (with chronic kidney disease risk factors) 1 Normal or increased GFR > or = 90 2 Mildly or decreased GFR 60 - 89 3 Moderately decreased GFR 30 - 59 4 Severely decreased GFR 15 - 29 5 Kidney failure <15 (or dialysis) Estimated GFR calculated using abbreviated MDRD formula as recommended by National Kidney Foundation. Calculation based upon serum creatinine and adjusted for age, gender & race. Lashonda. Internal Med., Vol. 139 (2) pg 137-147. Performed at [facility] [employer] [facility] [address] [place] [address] ISTAT BLOOD GASon 12-11-2019 LLUVIA'S TEST Positive [facility] Comment on above: Performed By: #### P OCGL #### [facility] [address] [place] [address] BASE EXCESS 9.8 mmol/l High -2.5-2.5 [facility] Comment on above: Performed By: #### P OCGL #### [facility] [address] [place] [address] COLLECTED BY [id number] [facility] Comment on above: Performed By: #### P OCGL #### [facility] [employer] [facility] [address] [place] [id number] DEVICE Cannula [facility] Comment on above: Performed By: #### P OCGL #### [facility] [address] [place] [address] 46927 FIO2 3 [facility] Comment on above: Performed By: #### P OCGL #### [facility] [address] [place] [address] 63111 HCO3 (Bld) [Moles/Vol] 38 mmol/L High 23-28 [facility] Comment on above: Performed By: #### P OCGL #### [facility] [address] [place] [address] 24050 Oxygen (Bld) [Partial pressure] 52 mm[Hg] Low 71-104 [facility] Comment on above: Performed By: #### P OCGL #### [facility] [address] [place] [address] 17650 Oxygen saturation in Blood 84 % Normal [facility] Comment on above: Performed By: #### P OCGL #### [facility] [address] [place] [address] 10004 PCO2 65 mmhg High 35-45 [facility] Comment on above: Performed By: #### P OCGL #### [facility] [address] [place] [address] 27307 pH (Bld) 7.37 [pH] Normal 7.35-7.45 [facility] Comment on above: Performed By: #### P OCGL #### [facility] [employer] [address] [place] [address] 54510 SITE L Radial [facility] Comment on above: Performed By: #### P OCGL #### [facility] [address] [place] [address] 68916 LLUVIA'S TEST Positive [facility] Comment on above: Performed By: #### P OCGL #### [facility] [address] [place] [address] 64550 BASE EXCESS 9.3 mmol/l High -2.5-2.5 [facility] Comment on above: Performed By: #### P OCGL #### [facility] [address] [place] [address] 14363 COLLECTED BY [id number] [facility] Comment on above: Performed By: #### P OCGL #### [facility] [address] [place] [address] 52794 DEVICE Venti Mask [facility] Comment on above: Performed By: #### P OCGL #### [facility] [address] [place] [address] 92584 FIO2 50 [facility] Comment on above: Performed By: #### P OCGL #### [facility] [employer] [address] [address] HCO3 (Bld) [Moles/Vol] 38 mmol/L High 23-28 [facility] Comment on above: Performed By: #### P OCGL #### [address] [address] Oxygen (Bld) [Partial pressure] 74 mm[Hg] Normal 71-104 [facility] Comment on above: Performed By: #### P OCGL #### [address] [address] Oxygen saturation in Blood 93 % Normal [facility] Comment on above: Performed By: #### P OCGL #### [address] [address] PCO2 72 mmhg Critically high 35-45 [facility] Comment on above: Performed By: #### P OCGL #### [address] [address] pH (Bld) 7.33 [pH] Low 7.35-7.45 [facility] Comment on above: Performed By: #### P OCGL #### [address] [address] SITE R Radial [facility] Comment on above: Performed By: #### P OCGL #### [address] [address] MAGNESIUMon 12-11-2019 Magnesium [Mass/Vol] 2.1 mg/dL Normal 1.6-2.4 [facility] Comment on above: Performed By: #### B MP, MG, ANION, EGFR1, NTBNP, TROPT #### [address] [address] Magnesiumon 12-11-2019 Magnesium [Mass/Vol] 2.1 mg/dL 1.6 - 2.4 mg/dL [facility], [place] Comment on above: Performed at [facility] [address] [place] [address] NT PRO-B NATRIURETIC PEPTIDE on 12-11-2019 Natriuretic peptide B (Bld) [Mass/Vol] 85284.0 pg/mL High 0.0-900.0 [facility] Comment on above: Result Comment: Valu es < 300 pg/ml rule out , or make the probability of heart failure highly unlikely. Values which rule in heart failue are as follows: AGE RANGE <50 years >450 pg/ml 50-75 years >900 pg/ml >75 years >1800 pg/ml Performed By: #### B MP, MG, ANION, EGFR1, NTBNP, TROPT #### [facility] [address] [place] [address] 27087 Otheron 12-11-2019 Interpretation and review of laboratory results Abnormal [place], [place] Interpretation and review of laboratory results Abnormal [place], [place] POCT glucoseon 12-11-2019 Glucose [Mass/Vol] 141 mg/dL High 70 - 108 mg/dl [place], [place] Comment on above: Performed at [facility] [employer] [facility] [address] [place] [address] Interpretation and review of laboratory results Abnormal [place], [place] TROPONIN-Ton 12-11-2019 Troponin T.cardiac [Mass/Vol] 0.038 ng/ml Ab[facility] Comment on above: Result Comment: <0.0 10 ng/ml Normal > or = 0.010 ng/ml Elevated (99%) Consistent with myocardial damage Cardiac troponin values can be elevated by many disease states in addition to acute ischemia. These include, but are not limited to: chronic renal failure, CHF, CVA, pulmonary embolus, COPD, myocardial trauma/surgery, myocarditis, pericarditis, tachycardia, aortic dissection, amyloidosis, sepsis and strenuous exercise. Serial measurement of troponin is strongly recommended as a first step in determining whether a low level elevation represents an acute or chronic condition. Performed By: #### P OCGL #### [facility] [address] [place] [address]38 Troponin T.cardiac [Mass/Vol] 0.054 ng/ml Ab[facility] Comment on above: Result Comment: <0.0 10 ng/ml Normal > or = 0.010 ng/ml Elevated (99%) Consistent with myocardial damage Cardiac troponin values can be elevated by many disease states in addition to acute ischemia. These include, but are not limited to: chronic renal failure, CHF, CVA, pulmonary embolus, COPD, myocardial trauma/surgery, myocarditis, pericarditis, tachycardia, aortic dissection, amyloidosis, sepsis and strenuous exercise. Serial measurement of troponin is strongly recommended as a first step in determining whether a low level elevation represents an acute or chronic condition. Performed By: #### B MP, MG, ANION, EGFR1, NTBNP, TROPT #### [facility] [employer] [address] [place], [place] [id number] Troponinon 12-11-2019 Interpretation and review of laboratory results Abnormal [place], [place] Troponin T.cardiac [Mass/Vol] 0.038 ng/ml Abnormal [place] Comment on above: <0.010 ng/ml Normal > or = 0.010 ng/ml Elevated (99%) Consistent with myocardial damage Cardiac troponin values can be elevated by many disease states in addition to acute ischemia. These include, but are not limited to: chronic renal failure, CHF, CVA, pulmonary embolus, COPD, myocardial trauma/surgery, myocarditis, pericarditis, tachycardia, aortic dissection, amyloidosis, sepsis and strenuous exercise. Serial measurement of troponin is strongly recommended as a first step in determining whether a low level elevation represents an acute or chronic condition. Performed at [facility] [employer] [place] [address] Troponin T.cardiac [Mass/Vol] 0.054 ng/ml Abnormal [place], [place] Comment on above: <0.010 ng/ml Normal > or = 0.010 ng/ml Elevated (99%) Consistent with myocardial damage Cardiac troponin values can be elevated by many disease states in addition to acute ischemia. These include, but are not limited to: chronic renal failure, CHF, CVA, pulmonary embolus, COPD, myocardial trauma/surgery, myocarditis, pericarditis, tachycardia, aortic dissection, amyloidosis, sepsis and strenuous exercise. Serial measurement of troponin is strongly recommended as a first step in determining whether a low level elevation represents an acute or chronic condition. Performed at [facility] [employer] [address] [address] XR CHEST PORTABLEon 12-11-19 20 XR CHEST PORTABLE PROCEDURE: XR CHEST PORTABLE CLINICAL INFORMATION: Heart failure. COMPARISON: No prior study. TECHNIQUE: A single mobile view of the chest was obtained. IMPRESSION: 1. Moderate cardiomegaly. Permanent pacemaker/defibrilla tor. 2. Moderate fluffy infiltrates scattered diffusely in both lungs, most prominent mid and lower lung shaver, worse on the right, consistent with pneumonia/pulmonary edema. Questionable small bilateral pleural effusions. This report has been created using voice recognition software. It may contain minor errors which are inherent in voice recognition technology. Final report electronically signed by Dr. Shalom So on 12/11/2019 7:05 AM Interpreted by: Shalom So MD Signed by: Shalom So MD 12/11/19 Final result Normal [facility] 1. Moderate cardiomegaly. Permanent pacemaker/defibrilla tor. 2. Moderate fluffy infiltrates scattered diffusely in both lungs, most prominent mid and lower lung shaver, worse on the right, consistent with pneumonia/pulmonary edema. Questionable small bilateral pleural effusions. This report has been created using voice recognition software. It may contain minor errors which are inherent in voice recognition technology. Final report electronically signed by Dr. Shalom So on 12/11/2019 7:05 AM [place], [place] [facility], [facility] Incoming Radiant Results From [facility] - 12/11/2019 7:07 AM EDT PROCEDURE: XR CHEST PORTABLE CLINICAL INFORMATION: Heart failure. COMPARISON: No prior study. TECHNIQUE: A single mobile view of the chest was obtained. IMPRESSION: 1. Moderate cardiomegaly. Permanent pacemaker/defibrilla tor. 2. Moderate fluffy infiltrates scattered diffusely in both lungs, most prominent mid and lower lung shaver, worse on the right, consistent with pneumonia/pulmonary edema. Questionable small bilateral pleural effusions. This report has been created using voice recognition software. It may contain minor errors which are inherent in voice recognition technology. Final report electronically signed by Dr. Shalom So on 12/11/2019 7:05 AM [place], [place] PROCEDURE: XR CHEST PORTABLE CLINICAL INFORMATION: Heart failure. COMPARISON: No prior study. TECHNIQUE: A single mobile view of the chest was obtained. [place], [place] CTA ABDOMEN PELVIS W WO CONT [facility] 09-14-2019 CTA ABDOMEN PELVIS W WO CONTRAST PROCEDURE: CTA CHEST W WO CONTRAST, CTA ABDOMEN PELVIS W WO CONTRAST CLINICAL INFORMATION: Nonrheumatic aortic valve stenosis .Pre-op TAVR. Aortic valve stenosis. COMPARISON: No prior study. TECHNIQUE: Noncontrast 5 mm axial images were obtained through the chest, abdomen and pelvis. Intravenous Optiray contrast was given. ECG gated axial 0.6 mm axial images were attained of the entire heart. A CT of the entire chest, abdomen and pelvis was obtained at 0.6 mm increments. These are reconstructed into 3 x 3 axial images. Those are sent to PACS. 3-D reconstructions through the chest, abdomen and pelvis include sagittal and coronal MIP images performed on the scanner. Centerline reconstructions were obtained. Vascular and valve measurements are made on a dedicated 3-D workstation. Measurements were made in systole with the aortic valve open. All CT scans at this facility use dose modulation, iterative reconstruction, and/or weight-based dosing when appropriate to reduce radiation dose to as low as reasonably achievable. FINDINGS: MEASUREMENTS: AORTIC VALVE: Calcium score: 4029. Trileaflet valve. There is severe calcification of the aortic valve leaflets.Valvular calcifications do not extend into the LVOT.. AORTIC DIMENSIONS: Aortic annulus: 29 x 22 mm. Aortic annulus area: 4.4 cm2. Aortic annulus perimeter: 79 mm. Distance of right coronary ostia to the annulus: 15 mm. Distance of the left coronary ostia to the annulus: 16 mm. Maximum diameter of the aortic sinus: 30 mm. Maximum diameter of the sinotubular junction: 24 mm. Maximum diameter of the mid ascending aorta: 33 mm. Aortic root orientation: 3 cusp view: COLOMBIAN 20, PAPER GRADER 3; Anterior view: NARANJO 0, CAU 14 Coronary anatomy: The right coronary artery arises from the sinus of Valsalva on the right. The left main coronary artery arises from the sinus of Valsalva on the left. No anomalies are noted. The chippewa[place]cree coronary arteries are heavily calcified. Ascending aorta and arch: There is no calcified plaque of the ascending aorta. No soft plaque is noted. There is mild calcified atherosclerosis of the aortic arch. Descending thoracic aorta: There is no significant tortuosity of the descending thoracic aorta. There is no aneurysmal dilation. There is mild calcified and noncalcified atherosclerosis of the descending thoracic aorta. Abdominal aorta: There is no significant tortuosity of the abdominal aorta. There is no aneurysmal dilation. There is calcified and noncalcified atherosclerosis of the abdominal aorta. Iliofemoral access route: There is no significant tortuosity. Minimal diameter of the abdominal aorta: 18 mm. Minimal diameter of the right common iliac artery: 7 mm. Minimal diameter of the right external iliac artery: 5 mm. Minimal diameter of the right common femoral artery: 5 mm. Minimal diameter of the left common iliac artery: 8 mm. Minimal diameter of the left external iliac artery: 5 mm. Minimal diameter of the left common femoral artery: 6 mm. HEART: There is mild cardiomegaly. The left ventricle appears dilated and thickened. The left atrium and left atrial appendage are normal. There is a pacemaker. PERICARDIUM: Normal. CHEST: There is some mild linear atelectasis in the left lung base. The pulmonary artery is normal. No pulmonary emboli are noted. There are multiple small mediastinal lymph nodes. There are more than typically seen. One of these in the prevascular space has a short axis measurement of 1.2 cm. This is considered enlarged. A pretracheal lymph node is also enlarged measuring 1.3 cm in short axis. Small hilar lymph nodes are present bilaterally. ABDOMEN: The liver is normal. The spleen is normal. The adrenals and pancreas are normal. The gallbladder is normal. There is no hydronephrosis or stones of either kidney. No solid renal masses are noted. There is a small simple cyst in the lower pole of the left kidney. No abnormalities of the small bowel loops are noted. The IVC and aorta are of normal caliber. There is a small midline abdominal wall hernia. This contains mesenteric fat. There is no adenopathy. PELVIS: The urinary bladder is normal. There is no pelvic free fluid. The colon is within normal limits. There is no adenopathy. There is a rim calcified fibroid associated with the uterus. The adnexa are of normal size. BONES: There are no suspicious osseous lesions. There are degenerative changes in the spine. There are old healed right-sided rib fractures. IMPRESSION: 1. Preoperative TAVR measurements as listed above. 2. Heavily calcified coronary arteries. 3. Mildly enlarged mediastinal lymph nodes. There are no prior examinations for comparison. This can indicate an underlying inflammatory process, lymphoma or malignancy. This report has been created using voice recognition software. It may contain minor errors which are inherent in voice recognition technology. Final report electronically signed by Dr. Ida Golden on 09/14/2019 4:24 PM Interpreted by: Ida Golden MD Signed by: Ida Golden MD 09/14/19 Final result [facility] CTA CHEST W WO CONTRASTon CTA CHEST W WO CONTRAST PROCEDURE: CTA CHEST W WO CONTRAST, CTA ABDOMEN PELVIS W WO CONTRAST CLINICAL INFORMATION: Nonrheumatic aortic valve stenosis .Pre-op TAVR. Aortic valve stenosis. COMPARISON: No prior study. TECHNIQUE: Noncontrast 5 mm axial images were obtained through the chest, abdomen and pelvis. Intravenous Optiray contrast was given. ECG gated axial 0.6 mm axial images were attained of the entire heart. A CT of the entire chest, abdomen and pelvis was obtained at 0.6 mm increments. These are reconstructed into 3 x 3 axial images. Those are sent to PACS. 3-D reconstructions through the chest, abdomen and pelvis include sagittal and coronal MIP images performed on the scanner. Centerline reconstructions were obtained. Vascular and valve measurements are made on a dedicated 3-D workstation. Measurements were made in systole with the aortic valve open. All CT scans at this facility use dose modulation, iterative reconstruction, and/or weight-based dosing when appropriate to reduce radiation dose to as low as reasonably achievable. FINDINGS: MEASUREMENTS: AORTIC VALVE: Calcium score: 4029. Trileaflet valve. There is severe calcification of the aortic valve leaflets.Valvular calcifications do not extend into the LVOT.. AORTIC DIMENSIONS: Aortic annulus: 29 x 22 mm. Aortic annulus area: 4.4 cm2. Aortic annulus perimeter: 79 mm. Distance of right coronary ostia to the annulus: 15 mm. Distance of the left coronary ostia to the annulus: 16 mm. Maximum diameter of the aortic sinus: 30 mm. Maximum diameter of the sinotubular junction: 24 mm. Maximum diameter of the mid ascending aorta: 33 mm. Aortic root orientation: 3 cusp view: COLOMBIAN 20, PAPER GRADER 3; Anterior view: NARANJO 0, CAU 14 Coronary anatomy: The right coronary artery arises from the sinus of Valsalva on the right. The left main coronary artery arises from the sinus of Valsalva on the left. No anomalies are noted. The chippewa[place]cree coronary arteries are heavily calcified. Ascending aorta and arch: There is no calcified plaque of the ascending aorta. No soft plaque is noted. There is mild calcified atherosclerosis of the aortic arch. Descending thoracic aorta: There is no significant tortuosity of the descending thoracic aorta. There is no aneurysmal dilation. There is mild calcified and noncalcified atherosclerosis of the descending thoracic aorta. Abdominal aorta: There is no significant tortuosity of the abdominal aorta. There is no aneurysmal dilation. There is calcified and noncalcified atherosclerosis of the abdominal aorta. Iliofemoral access route: There is no significant tortuosity. Minimal diameter of the abdominal aorta: 18 mm. Minimal diameter of the right common iliac artery: 7 mm. Minimal diameter of the right external iliac artery: 5 mm. Minimal diameter of the right common femoral artery: 5 mm. Minimal diameter of the left common iliac artery: 8 mm. Minimal diameter of the left external iliac artery: 5 mm. Minimal diameter of the left common femoral artery: 6 mm. HEART: There is mild cardiomegaly. The left ventricle appears dilated and thickened. The left atrium and left atrial appendage are normal. There is a pacemaker. PERICARDIUM: Normal. CHEST: There is some mild linear atelectasis in the left lung base. The pulmonary artery is normal. No pulmonary emboli are noted. There are multiple small mediastinal lymph nodes. There are more than typically seen. One of these in the prevascular space has a short axis measurement of 1.2 cm. This is considered enlarged. A pretracheal lymph node is also enlarged measuring 1.3 cm in short axis. Small hilar lymph nodes are present bilaterally. ABDOMEN: The liver is normal. The spleen is normal. The adrenals and pancreas are normal. The gallbladder is normal. There is no hydronephrosis or stones of either kidney. No solid renal masses are noted. There is a small simple cyst in the lower pole of the left kidney. No abnormalities of the small bowel loops are noted. The IVC and aorta are of normal caliber. There is a small midline abdominal wall hernia. This contains mesenteric fat. There is no adenopathy. PELVIS: The urinary bladder is normal. There is no pelvic free fluid. The colon is within normal limits. There is no adenopathy. There is a rim calcified fibroid associated with the uterus. The adnexa are of normal size. BONES: There are no suspicious osseous lesions. There are degenerative changes in the spine. There are old healed right-sided rib fractures. IMPRESSION: 1. Preoperative TAVR measurements as listed above. 2. Heavily calcified coronary arteries. 3. Mildly enlarged mediastinal lymph nodes. There are no prior examinations for comparison. This can indicate an underlying inflammatory process, lymphoma or malignancy. This report has been created using voice recognition software. It may contain minor errors which are inherent in voice recognition technology. Final report electronically signed by Dr. Ida Golden on 09/14/2019 4:24 PM Interpreted by: Ida Golden MD Signed by: Ida Golden MD 09/14/19 Final result [facility] Otheron 09-14-2019 1. Preoperative TAVR measurements as listed above. 2. Heavily calcified coronary arteries. 3. Mildly enlarged mediastinal lymph nodes. There are no prior examinations for comparison. This can indicate an underlying inflammatory process, lymphoma or malignancy. This report has been created using voice recognition software. It may contain minor errors which are inherent in voice recognition technology. Final report electronically signed by Dr. dIa Golden on 09/14/2019 4:24 PM [place], [place] PROCEDURE: CTA CHEST W WO CONTRAST, CTA ABDOMEN PELVIS W WO CONTRAST CLINICAL INFORMATION: Nonrheumatic aortic valve stenosis .Pre-op TAVR. Aortic valve stenosis. COMPARISON: No prior study. TECHNIQUE: Noncontrast 5 mm axial images were obtained through the chest, abdomen and pelvis. Intravenous Optiray contrast was given. ECG gated axial 0.6 mm axial images were attained of the entire heart. A CT of the entire chest, abdomen and pelvis was obtained at 0.6 mm increments. These are reconstructed into 3 x 3 axial images. Those are sent to PACS. 3-D reconstructions through the chest, abdomen and pelvis include sagittal and coronal MIP images performed on the scanner. Centerline reconstructions were obtained. Vascular and valve measurements are made on a dedicated 3-D workstation. Measurements were made in systole with the aortic valve open. All CT scans at this facility use dose modulation, iterative reconstruction, and/or weight-based dosing when appropriate to reduce radiation dose to as low as reasonably achievable. FINDINGS: MEASUREMENTS: AORTIC VALVE: Calcium score: 4029. Trileaflet valve. There is severe calcification of the aortic valve leaflets.Valvular calcifications do not extend into the LVOT.. AORTIC DIMENSIONS: Aortic annulus: 29 x 22 mm. Aortic annulus area: 4.4 cm2. Aortic annulus perimeter: 79 mm. Distance of right coronary ostia to the annulus: 15 mm. Distance of the left coronary ostia to the annulus: 16 mm. Maximum diameter of the aortic sinus: 30 mm. Maximum diameter of the sinotubular junction: 24 mm. Maximum diameter of the mid ascending aorta: 33 mm. Aortic root orientation: 3 cusp view: COLOMBIAN 20, PAPER GRADER 3; Anterior view: NARANJO 0, CAU 14 Coronary anatomy: The right coronary artery arises from the sinus of Valsalva on the right. The left main coronary artery arises from the sinus of Valsalva on the left. No anomalies are noted. The chip[place]cree coronary arteries are heavily calcified. Ascending aorta and arch: There is no calcified plaque of the ascending aorta. No soft plaque is noted. There is mild calcified atherosclerosis of the aortic arch. Descending thoracic aorta: There is no significant tortuosity of the descending thoracic aorta. There is no aneurysmal dilation. There is mild calcified and noncalcified atherosclerosis of the descending thoracic aorta. Abdominal aorta: There is no significant tortuosity of the abdominal aorta. There is no aneurysmal dilation. There is calcified and noncalcified atherosclerosis of the abdominal aorta. Iliofemoral access route: There is no significant tortuosity. Minimal diameter of the abdominal aorta: 18 mm. Minimal diameter of the right common iliac artery: 7 mm. Minimal diameter of the right external iliac artery: 5 mm. Minimal diameter of the right common femoral artery: 5 mm. Minimal diameter of the left common iliac artery: 8 mm. Minimal diameter of the left external iliac artery: 5 mm. Minimal diameter of the left common femoral artery: 6 mm. HEART: There is mild cardiomegaly. The left ventricle appears dilated and thickened. The left atrium and left atrial appendage are normal. There is a pacemaker. PERICARDIUM: Normal. CHEST: There is some mild linear atelectasis in the left lung base. The pulmonary artery is normal. No pulmonary emboli are noted. There are multiple small mediastinal lymph nodes. There are more than typically seen. One of these in the prevascular space has a short axis measurement of 1.2 cm. This is considered enlarged. A pretracheal lymph node is also enlarged measuring 1.3 cm in short axis. Small hilar lymph nodes are present bilaterally. ABDOMEN: The liver is normal. The spleen is normal. The adrenals and pancreas are normal. The gallbladder is normal. There is no hydronephrosis or stones of either kidney. No solid renal masses are noted. There is a small simple cyst in the lower pole of the left kidney. No abnormalities of the small bowel loops are noted. The IVC and aorta are of normal caliber. There is a small midline abdominal wall hernia. This contains mesenteric fat. There is no adenopathy. PELVIS: The urinary bladder is normal. There is no pelvic free fluid. The colon is within normal limits. There is no adenopathy. There is a rim calcified fibroid associated with the uterus. The adnexa are of normal size. BONES: There are no suspicious osseous lesions. There are degenerative changes in the spine. There are old healed right-sided rib fractures. [facility]- [place], [place] Cristofer, Wcoh Incoming Radiant Results From [employer] - 09/14/2019 4:26 PM EDT PROCEDURE: CTA CHEST W WO CONTRAST, CTA ABDOMEN PELVIS W WO CONTRAST CLINICAL INFORMATION: Nonrheumatic aortic valve stenosis .Pre-op TAVR. Aortic valve stenosis. COMPARISON: No prior study. TECHNIQUE: Noncontrast 5 mm axial images were obtained through the chest, abdomen and pelvis. Intravenous Optiray contrast was given. ECG gated axial 0.6 mm axial images were attained of the entire heart. A CT of the entire chest, abdomen and pelvis was obtained at 0.6 mm increments. These are reconstructed into 3 x 3 axial images. Those are sent to PACS. 3-D reconstructions through the chest, abdomen and pelvis include sagittal and coronal MIP images performed on the scanner. Centerline reconstructions were obtained. Vascular and valve measurements are made on a dedicated 3-D workstation. Measurements were made in systole with the aortic valve open. All CT scans at this facility use dose modulation, iterative reconstruction, and/or weight-based dosing when appropriate to reduce radiation dose to as low as reasonably achievable. FINDINGS: MEASUREMENTS: AORTIC VALVE: Calcium score: 4029. Trileaflet valve. There is severe calcification of the aortic valve leaflets.Valvular calcifications do not extend into the LVOT.. AORTIC DIMENSIONS: Aortic annulus: 29 x 22 mm. Aortic annulus area: 4.4 cm2. Aortic annulus perimeter: 79 mm. Distance of right coronary ostia to the annulus: 15 mm. Distance of the left coronary ostia to the annulus: 16 mm. Maximum diameter of the aortic sinus: 30 mm. Maximum diameter of the sinotubular junction: 24 mm. Maximum diameter of the mid ascending aorta: 33 mm. Aortic root orientation: 3 cusp view: COLOMBIAN 20, PAPER GRADER 3; Anterior view: NARANJO 0, CAU 14 Coronary anatomy: The right coronary artery arises from the sinus of Valsalva on the right. The left main coronary artery arises from the sinus of Valsalva on the left. No anomalies are noted. The chippewa[place]cree coronary arteries are heavily calcified. Ascending aorta and arch: There is no calcified plaque of the ascending aorta. No soft plaque is noted. There is mild calcified atherosclerosis of the aortic arch. Descending thoracic aorta: There is no significant tortuosity of the descending thoracic aorta. There is no aneurysmal dilation. There is mild calcified and noncalcified atherosclerosis of the descending thoracic aorta. Abdominal aorta: There is no significant tortuosity of the abdominal aorta. There is no aneurysmal dilation. There is calcified and noncalcified atherosclerosis of the abdominal aorta. Iliofemoral access route: There is no significant tortuosity. Minimal diameter of the abdominal aorta: 18 mm. Minimal diameter of the right common iliac artery: 7 mm. Minimal diameter of the right external iliac artery: 5 mm. Minimal diameter of the right common femoral artery: 5 mm. Minimal diameter of the left common iliac artery: 8 mm. Minimal diameter of the left external iliac artery: 5 mm. Minimal diameter of the left common femoral artery: 6 mm. HEART: There is mild cardiomegaly. The left ventricle appears dilated and thickened. The left atrium and left atrial appendage are normal. There is a pacemaker. PERICARDIUM: Normal. CHEST: There is some mild linear atelectasis in the left lung base. The pulmonary artery is normal. No pulmonary emboli are noted. There are multiple small mediastinal lymph nodes. There are more than typically seen. One of these in the prevascular space has a short axis measurement of 1.2 cm. This is considered enlarged. A pretracheal lymph node is also enlarged measuring 1.3 cm in short axis. Small hilar lymph nodes are present bilaterally. ABDOMEN: The liver is normal. The spleen is normal. The adrenals and pancreas are normal. The gallbladder is normal. There is no hydronephrosis or stones of either kidney. No solid renal masses are noted. There is a small simple cyst in the lower pole of the left kidney. No abnormalities of the small bowel loops are noted. The IVC and aorta are of normal caliber. There is a small midline abdominal wall hernia. This contains mesenteric fat. There is no adenopathy. PELVIS: The urinary bladder is normal. There is no pelvic free fluid. The colon is within normal limits. There is no adenopathy. There is a rim calcified fibroid associated with the uterus. The adnexa are of normal size. BONES: There are no suspicious osseous lesions. There are degenerative changes in the spine. There are old healed right-sided rib fractures. IMPRESSION: 1. Preoperative TAVR measurements as listed above. 2. Heavily calcified coronary arteries. 3. Mildly enlarged mediastinal lymph nodes. There are no prior examinations for comparison. This can indicate an underlying inflammatory process, lymphoma or malignancy. This report has been created using voice recognition software. It may contain minor errors which are inherent in voice recognition technology. Final report electronically signed by Dr. 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 If changes, see note below. Mallampati Classification 2 / ASA Classification II : per Physician . Patient medications reviewed by Physician prior to procedure. Procedure Procedure Type: Diagnostic procedure: Lt Heart, Coronary Angio, LV pressure Complications: - No complication Conclusions Procedure Summary Mild to moderate single vessel disease involving the right coronary artery. Normal left ventricular end diastolic pressure. Widely (LVEDP). Recommendations Proceed with aggressive risk factor modification including aspirin, beta jalen and statin if clinically indicated. Signature ---- ---- Angiographic Findings Cardiac Arteries and Lesion Findings LMCA: Mild irregularities 10-20%. LAD: Mild irregularities 30-40%. LCx: Mild irregularities 20-30%. RCA: Lesion on Mid RCA: Mid subsection.40% stenosis. Coronary Tree Dominance: Right LV function assessed as:Normal. Ejection Fraction + ----+ + !Method !EF% ! + ----+ + !Echocardiography !60 ! + ----+ + Ventriculography Findings: Normal left ventricular end diastolic pressure (LVEDP) with no significant aortic valve gradient seen on pull-back across the aortic valve. Procedure Data Procedure Start Time: 09/01/2019 13:21. Procedure End Time: 09/01/2019 13:38. The procedure was explained in detail to the patient. Risks, complications and alternative treatments were reviewed. Written consent was obtained. Diagnostic Cath Status: Urgent Entry Locations - Retrograde Percutaneous access was performed through the Right Radial artery. A 6 Fr sheath was inserted. Hemostasis was successfully obtained using Pressure Dressing. Procedure Medications: - Lidocaine HCl 1% 10mg/ml S.Q. 3 ml. - Lidocaine HCl 1% 10mg/ml S.Q. 3 ml. - Nitroglycerin S.Q. 100 mcg. - Versed I.V. 1 mg. - Oxygen 2 l/min. - Oxygen NC 4 l/min. - Verapamil I.A. 1.25 mg. - 0.9 % NaCl I.V. bolus 1000 ml/hr. Catheters and Wires: - 6 Fr. Radial TIG 4.0 was used for Left coronary angiography. - 6 Fr. Radial TIG 4.0 was used for Right coronary angiography. Contrast Material: - Isovue 69991 ml Fluoroscopy Time: Diagnostic: 1:01 minutes. Total: 1:01 minutes. Estimated Blood Loss: 5 ml. Medical History Allergies - Codeine. - Codeine. - *Unlisted:(rocky) . Risk Factors The patient risk factors include:obesity, physical activity, treated hypercholesterolemia , treated hypertension, last creatinine: 0.8 mg/dl, creatinine clearance: 118.68 ml/min, dyslipidemia, former tobacco use and prior heart failure. Admission Data Admission Date: 09/01/2019 Admission Status: Outpatient. Pre Admission Medications + +------+- +--- +--------- ----+ + !Medication!Dosage!T imes Per Day !Start date !Stop date !Comments ! + +------+- +--- +--------- ----+ + !Aspirin !81 mg ! ! ! ! ! + +------+- +--- +--------- ----+ + -The patient shows CHF symptoms of VERA. -The patient's anginal syndrome was assessed as CCS IV according to the Nuckolls clinical classification. Hemodynamics Condition: Baseline Room Air Estimated: 205.86Heart Rate: 79 bpm Pressure +-----+ + !Site !Pressure ! +-----+ + !AO !88/52 (64) ! +-----+ + Shunts Oxygen Values O2 [id number] [facility]- [place], [place] Cristofer, pn Incoming Cardio Results From [facility]/ - 09/01/2019 1:59 PM EDT Cardiac Diagnostic Report Demographics Patient SAMIR Orozco Date of Study 09/01/2019 Name Date of 1955 Gender Female Age 63 year(s) Race Room [id number]^SHELL Height: 66 inch, 167.64 cm Number Corporate [id number] Weight: 224 pounds, 101.8 kg ID # Patient [id number] BSA: 2.1 m^2 BMI: 36.22 kg/m^2 Acct # MR # [id number] Performing Jean Borrero Physician Referring # Physician Assisting Physician Additional Comments H&P reviewed and patient examined by performing physician prior to the procedure on 09/01/2019 at 1312 No changes noted. If changes, see note below. Mallampati Classification 2 / ASA Classification II : per Physician . Patient medications reviewed by Physician prior to procedure. Procedure Procedure Type: Diagnostic procedure: Lt Heart, Coronary Angio, LV pressure Complications: - No complication Conclusions Procedure Summary Mild to moderate single vessel disease involving the right coronary artery. Normal left ventricular end diastolic pressure. Widely (LVEDP). Recommendations Proceed with aggressive risk factor modification including aspirin, beta jalen and statin if clinically indicated. Signature ---- ---- Angiographic Findings Cardiac Arteries and Lesion Findings LMCA: Mild irregularities 10-20%. LAD: Mild irregularities 30-40%. LCx: Mild irregularities 20-30%. RCA: Lesion on Mid RCA: Mid subsection.40% stenosis. Coronary Tree Dominance: Right LV function assessed as:Normal. Ejection Fraction + ----+ + !Method !EF% ! + ----+ + !Echocardiography !60 ! + ----+ + Ventriculography Findings: Normal left ventricular end diastolic pressure (LVEDP) with no significant aortic valve gradient seen on pull-back across the aortic valve. Procedure Data Procedure Start Time: 09/01/2019 13:21. Procedure End Time: 09/01/2019 13:38. The procedure was explained in detail to the patient. Risks, complications and alternative treatments were reviewed. Written consent was obtained. Diagnostic Cath Status: Urgent Entry Locations - Retrograde Percutaneous access was performed through the Right Radial artery. A 6 Fr sheath was inserted. Hemostasis was successfully obtained using Pressure Dressing. Procedure Medications: - Lidocaine HCl 1% 10mg/ml S.Q. 3 ml. - Lidocaine HCl 1% 10mg/ml S.Q. 3 ml. - Nitroglycerin S.Q. 100 mcg. - Versed I.V. 1 mg. - Oxygen 2 l/min. - Oxygen NC 4 l/min. - Verapamil I.A. 1.25 mg. - 0.9 % NaCl I.V. bolus 1000 ml/hr. Catheters and Wires: - 6 Fr. Radial TIG 4.0 was used for Left coronary angiography. - 6 Fr. Radial TIG 4.0 was used for Right coronary angiography. Contrast Material: - Isovue 99879 ml Fluoroscopy Time: Diagnostic: 1:01 minutes. Total: 1:01 minutes. Estimated Blood Loss: 5 ml. Medical History Allergies - Codeine. - Codeine. - *Unlisted:(benadryl) . Risk Factors The patient risk factors include:obesity, physical activity, treated hypercholesterolemia , treated hypertension, last creatinine: 0.8 mg/dl, creatinine clearance: 118.68 ml/min, dyslipidemia, former tobacco use and prior heart failure. Admission Data Admission Date: 09/01/2019 Admission Status: Outpatient. Pre Admission Medications + +------+- +--- +--------- ----+ + !Medication!Dosage!T imes Per Day !Start date !Stop date !Comments ! + +------+- +--- +--------- ----+ + !Aspirin !81 mg ! ! ! ! ! + +------+- +--- +--------- ----+ + -The patient shows CHF symptoms of EVRA. -The patient's anginal syndrome was assessed as CCS IV according to the Nuckolls clinical classification. Hemodynamics Condition: Baseline Room Air Estimated: 205.86Heart Rate: 79 bpm Pressure +-----+ + !Site !Pressure ! +-----+ + !AO !88/52 (64) ! +-----+ + Shunts Oxygen Values O2 [id number] [id number] [facility], [place] Echo transesophageal (ARIA)on 09-01-2019 [facility] Transesophageal Echocardiography Report (ARIA) Patient Name SAMIR Date of Study 09/01/2019 SAMREEN Orozco Date of 1955 Gender Female Age 63 year(s) Race Room Number Height: 66 inch, 167.64 cm Corporate ID [id number] Weight: 224 pounds, 101.8 kg # Patient Acct [id number] BSA: 2.1 m^2 BMI: 36.22 # kg/m^2 MR # [id number] Racking Technician Yaneth Rodriguez Interpreting Physician Jean Borrero Referring Nurse Practitioner Interpreting Referring Physician Jean Borrero Type of Study ARIA procedure:2D echocardiogram, Doppler , Color Doppler. Procedure Date Date: 09/01/2019 Start: 03:03 PM Study Location: [facility] Indications:Aortic stenosis. History / Tech. Comments: Aortic stenosis Patient Status: Outpatient Height: 66 inches Weight: 224.43 pounds BSA: 2.1 m^2 BMI: 36.22 kg/m^2 BP: 102/66 mmHg ARIA Performed By: Interpreting Physician Type of Anesthesia: General anesthesia Allergies - Codeine. - Codeine. - *Unlisted:(benadryl) . CONCLUSIONS Summary Normal left ventricular systolic function with an estimated EF >55%. No significant wall motion abnormalities seen. The aortic valve was severely calcified and appeared to be tricuspid but the anterior leaflet does not appear to move well and therefore a functionally bicuspid aortic valve cannot be excluded. Severe aortic valve calcification consistent with severe aortic stenosis as diagnosed on transthoracic echocardiography. Consider additional testing and/or treatment if clinically indicated. Signature FINDINGS Left Atrium The left atrium appears normal in size. Left Ventricle Normal left ventricular systolic function with an estimated EF >55%. No significant wall motion abnormalities seen. Right Atrium The right atrium appears normal in size. Mitral Valve Normal mitral valve structure and function with trivial regurgitation noted. Aortic Valve The aortic valve was severely calcified and appeared to be tricuspid but the anterior leaflet does not appear to move well and therefore a functionally bicuspid aortic valve cannot be excluded. Pericardial Effusion No significant pericardial effusion is seen. Pleural Effusion No pleural effusion seen. Miscellaneous Normal aortic root dimensions. No evidence of diastolic dysfunction. [facility]- [place], [place] Cristofer, Mhpn Incoming Cardio Results From [employer] - 09/01/2019 5:21 PM EDT [facility] Transesophageal Echocardiography Report (ARIA) Patient Name SAMIR Date of Study 09/01/2019 SAMREEN Orozco Date of 1955 Gender Female Age 63 year(s) Race Room Number Height: 66 inch, 167.64 cm Corporate ID [id number] Weight: 224 pounds, 101.8 kg # Patient Acct [id number] BSA: 2.1 m^2 BMI: 36.22 # kg/m^2 MR # [id number] Racking Technician Yaneth Rodriguez Interpreting Physician Jean Borrero Fellow Referring Nurse Practitioner Interpreting Referring Physician Jean Borrero Type of Study ARIA procedure:2D echocardiogram, Doppler , Color Doppler. Procedure Date Date: 09/01/2019 Start: 03:03 PM Study Location: [facility] Indications:Aortic stenosis. History / Tech. Comments: Aortic stenosis Patient Status: Outpatient Height: 66 inches Weight: 224.43 pounds BSA: 2.1 m^2 BMI: 36.22 kg/m^2 BP: 102/66 mmHg ARIA Performed By: Interpreting Physician Type of Anesthesia: General anesthesia Allergies - Codeine. - Codeine. - *Unlisted:(benadryl) . CONCLUSIONS Summary Normal left ventricular systolic function with an estimated EF >55%. No significant wall motion abnormalities seen. The aortic valve was severely calcified and appeared to be tricuspid but the anterior leaflet does not appear to move well and therefore a functionally bicuspid aortic valve cannot be excluded. Severe aortic valve calcification consistent with severe aortic stenosis as diagnosed on transthoracic echocardiography. Consider additional testing and/or treatment if clinically indicated. Signature - - - - FINDINGS Left Atrium The left atrium appears normal in size. Left Ventricle Normal left ventricular systolic function with an estimated EF >55%. No significant wall motion abnormalities seen. Right Atrium The right atrium appears normal in size. Mitral Valve Normal mitral valve structure and function with trivial regurgitation noted. Aortic Valve The aortic valve was severely calcified and appeared to be tricuspid but the anterior leaflet does not appear to move well and therefore a functionally bicuspid aortic valve cannot be excluded. Pericardial Effusion No significant pericardial effusion is seen. Pleural Effusion No pleural effusion seen. Miscellaneous Normal aortic root dimensions. No evidence of diastolic dysfunction. [place], [place] Basic Metabolic Panelon 04-2 Anion gap [Moles/Vol] 12 mmol/L 9 - 17 mmol/L [place] Bun/Cre Ratio 25 [place] Calcium [Mass/Vol] 9.4 mg/dL 8.6 - 10. 4 mg/dL [place] Chloride [Moles/Vol] 94 mmol/L Low 98 - 107 mmol/L [place] CO2 [Moles/Vol] 31 mmol/L 20 - 31 mmol/L [place] Creatinine [Mass/Vol] 0.8 mg/dL 0.5 - 0.9 mg/d L [place] GFR >60 >60 mL/min [place] GFR Non- >60 >60 mL/min [place] Glucose [Mass/Vol] 139 mg/dL High 70 - 99 mg/dL [place], [place] Interpretation and review of laboratory results Abnormal [place] Potassium [Moles/Vol] 4.0 mmol/L 3.7 - 5.3 mmol/L [place] Sodium [Moles/Vol] 137 mmol/L 135 - 144 mmol/L [place] Urea nitrogen [Mass/Vol] 20 mg/dL 8 - 23 mg/dL [place] Brain Natriuretic Peptideon 08-29-2019 Interpretation and review of laboratory results Abnormal [place] Natriuretic peptide B (Bld) [Mass/Vol] 3406 pg/mL High <300 [place], [place] Comment on above: Pro-BNP results loyd ot be compared to BNP results. Natriuretic peptide B (Bld) [Mass/Vol] Pro-BNP Reference Range: [place], [place] Comment on above: Rule Out: <300 Sanchez Zone: Age <50 300-450 Age 50-75 300-900 Age >75 300-1800 Usually represents mild to moderate HF but other cardiopulmonary causes cannot be ruled out. Rule In: Age <50 >450 Age 50-75 >900 Age >75 >1800 Magnesiumon 08-29-2019 Magnesium [Mass/Vol] 1.8 mg/dL 1.6 - 2.6 mg/dL [place] Metabolic Panelon 08-29-2019 GFR/1.73 sq M predicted among non-blacks MDRD (S/P/Bld) [Vol rate/Area] [place] Comment on above: Stage 1: Some kidney damage normal GFR Stage 2: Mild kidney damage GFR 60-89 Stage 3: Moderate kidney damage GFR 30-59 Stage 4: Severe kidney damage GFR 15-29 Stage 5: Severe kidney damage GFR <15 ESRD - chronic treatment by dialysis or transplant Average GFR for 60-6 9 years old: 85 mL/min/1.73sq m Chronic Kidney Disease: <60 mL/min/1.73sq m Kidney failure: <15 mL/min/1.73sq m eGFR calculated using average adult body mass. Additional eGFR calculator available at: http://www.[employer].fanatix/multiple_crcl_2012.htm Basic Metabolic Panelon 08-09 Anion gap [Moles/Vol] 13 mmol/L 9 - 17 mmol/L [place] Bun/Cre Ratio 22 [place] Calcium [Mass/Vol] 9.8 mg/dL 8.6 - 10. 4 mg/dL [place] Chloride [Moles/Vol] 97 mmol/L Low 98 - 107 mmol/L [place] CO2 [Moles/Vol] 30 mmol/L 20 - 31 mmol/L [place] Creatinine [Mass/Vol] 0.93 mg/dL High 0.5 - 0.9 mg/d L [place] GFR >60 >60 mL/min [place] GFR Non- >60 >60 mL/min [place] Glucose [Mass/Vol] 179 mg/dL High 70 - 99 mg/dL [place] Interpretation and review of laboratory results Abnormal [place] Potassium [Moles/Vol] 3.6 mmol/L Low 3.7 - 5.3 mmol/L [place] Sodium [Moles/Vol] 140 mmol/L 135 - 144 mmol/L [place] Urea nitrogen [Mass/Vol] 20 mg/dL 8 - 23 mg/dL [place] Magnesiumon 08-28-2019 Magnesium [Mass/Vol] 1.7 mg/dL 1.6 - 2.6 mg/dL [place] Metabolic Panelon 08-28-2019 GFR/1.73 sq M predicted among non-blacks MDRD (S/P/Bld) [Vol rate/Area] [place] Comment on above: Average GFR for 60-6 9 years old: 85 mL/min/1.73sq m Chronic Kidney Disease: <60 mL/min/1.73sq m Kidney failure: <15 mL/min/1.73sq m eGFR calculated using average adult body mass. Additional eGFR calculator available at: http://www.[employer].fanatix/multiple_crcl_2012.htm Stage 1: Some kidney damage normal GFR Stage 2: Mild kidney damage GFR 60-89 Stage 3: Moderate kidney damage GFR 30-59 Stage 4: Severe kidney damage GFR 15-29 Stage 5: Severe kidney damage GFR <15 ESRD - chronic treatment by dialysis or transplant Basic Metabolic Panelon 08-09 Anion gap [Moles/Vol] 12 mmol/L 9 - 17 mmol/L [place] Bun/Cre Ratio 23 [place] Calcium [Mass/Vol] 9.6 mg/dL 8.6 - 10. 4 mg/dL [place] Chloride [Moles/Vol] 96 mmol/L Low 98 - 107 mmol/L [place] CO2 [Moles/Vol] 29 mmol/L 20 - 31 mmol/L [place] Creatinine [Mass/Vol] 0.8 mg/dL 0.5 - 0.9 mg/d L [place] GFR >60 >60 mL/min [place] GFR Non- >60 >60 mL/min [place] Glucose [Mass/Vol] 133 mg/dL High 70 - 99 mg/dL [place] Potassium [Moles/Vol] 3.7 mmol/L 3.7 - 5.3 mmol/L [place] Sodium [Moles/Vol] 137 mmol/L 135 - 144 mmol/L [place] Urea nitrogen [Mass/Vol] 18 mg/dL 8 - 23 mg/dL [place] CBC auto differentialon 08-09 Basophils (Bld) [#/Vol] 0.08 10*3/uL [place] Basophils/100 WBC (Bld) 1 % 0 - 2 % [place] Differential Type NOT REPORTED [place] Eosinophils (Bld) [#/Vol] 0.15 10*3/uL [place] Eosinophils/100 WBC (Bld) 2 % 1 - 4 % [place] Erythrocyte distribution width (RBC) [Ratio] 18.6 % High 11.8 - 14.4 % [place] Hematocrit (Bld) [Volume fraction] 38.2 % 36.3 - 47.1 % [place] Hemoglobin (Bld) [Mass/Vol] 10.8 g/dL Low 11.9 - 15.1 g/dL [place] Immature granulocytes (Bld) [#/Vol] 0 % 0 [place] Immature granulocytes (Bld) [#/Vol] 0.00 10*3/uL [place] Interpretation and review of laboratory results Abnormal [place] Lymphocytes (Bld) [#/Vol] 1.39 10*3/uL [place] Lymphocytes/100 WBC (Bld) 18 % Low 24 - 43 % [place] MCH (RBC) [Entitic mass] 21.6 pg Low 25.2 - 33.5 pg [place] MCHC (RBC) [Mass/Vol] 28.3 g/dL Low 28.4 - 34.8 g/dL [place] MCV (RBC) [Entitic vol] 76.6 fL Low 82.6 - 102.9 fL [place] Monocytes (Bld) [#/Vol] 0.77 10*3/uL [place] Monocytes/100 WBC (Bld) 10 % 3 - 12 % [place] Morphology Darryn (Bld) [Interp] HYPOCHROMASIA PRESENT [place] Platelet mean volume (Bld) [Entitic vol] NOT REPORTED 8.1 - 13.5 fL [place] Platelets (Bld) [#/Vol] See Reflexed IPF Result [place] Platelets (Bld) [#/Vol] NOT REPORTED [place] RBC (Bld) [#/Vol] 4.99 10*6/uL 3.95 - 5.1 1 m/uL [place] RBC morphology finding Nom (Bld) NOT REPORTED [place] Segmented neutrophils/100 WBC (Bld) 69 % High 36 - 65 % [place] Segs Absolute 5.31 [place], [place] WBC (Bld) [#/Vol] 0.0 10*3/uL 0.0 per 100 WBC M [place] WBC (Bld) [#/Vol] 7.7 10*3/uL [place] WBC Morphology NOT REPORTED [place] COVID-19on 08-27-2019 SARS-CoV-2 Not Detected Not Detected [place], [place] Comment on above: The specimen is NEGATIVE for SARS-CoV-2, the novel coronavirus associated with COVID-19. A negative result does not rule out COVID-19. This test has been authorized by the FDA under an Emergency Use Authorization (EUA) for use by authorized laboratories. Fact sheet for Healthcare Providers: https://www.fda.gov/media/501798/download Fact sheet for Patients: https://www.fda.gov/media/016933/download METHODOLOGY: RT-[facility]-2, [facility] [place] Source .NASOPHARYNGEAL SWAB [place] Immature Platelet Fractionon 08-27-2019 Platelet, Fluorescence 151 [place], [place] Platelet, Immature Fraction 10.0 % 1.1 - 10.3 % [place] Lipid panel - fastingon 08-09 Cholesterol [Mass/Vol] 110 mg/dL <200 [place], [place] Comment on above: Cholesterol Guidelines: <200 Desirable 200-240 Borderline >240 Undesirable Cholesterol in HDL [Mass/Vol] 26 mg/dL Low >40 [place] Comment on above: HDL Guidelines: <40 Undesirable 40-59 Borderline >59 Desirable Cholesterol in LDL [Mass/Vol] 62 mg/dL 0 - 130 mg/dL [place] Comment on above: LDL Guidelines: <100 Desirable 100-129 Near to/above Desirable 130-159 Borderline >159 Undesirable Direct (measured) LDL and calculated LDL are not interchangeable tests. Cholesterol in VLDL [Mass/Vol] NOT REPORTED 1 - 30 mg/dL [place] Cholesterol.total/Cho lesterol in HDL [Mass ratio] 4.2 {ratio} <5 [place] Triglyceride [Mass/Vol] 109 mg/dL <150 [place] Comment on above: Triglyceride Guidelines: <150 Desirable 150-199 Borderline 200-499 High >499 Very high Based on AHA Guidelines for fasting triglyceride, February 2012. Magnesiumon 08-27-2019 Magnesium [Mass/Vol] 1.5 mg/dL Low 1.6 - 2.6 mg/dL [place] Metabolic Panelon 08-27-2019 GFR/1.73 sq M predicted among non-blacks MDRD (S/P/Bld) [Vol rate/Area] [place], [place] Comment on above: Average GFR for 60-6 9 years old: 85 mL/min/1.73sq m Chronic Kidney Disease: <60 mL/min/1.73sq m Kidney failure: <15 mL/min/1.73sq m eGFR calculated using average adult body mass. Additional eGFR calculator available at: http://www.[employer])/multiple_crcl_2012.htm Stage 1: Some kidney damage normal GFR Stage 2: Mild kidney damage GFR 60-89 Stage 3: Moderate kidney damage GFR 30-59 Stage 4: Severe kidney damage GFR 15-29 Stage 5: Severe kidney damage GFR <15 ESRD - chronic treatment by dialysis or transplant Otheron 08-27-2019 Interpretation and review of laboratory results Abnormal [place] Brain Natriuretic Peptideon 08-26-2019 Interpretation and review of laboratory results Abnormal [place] Natriuretic peptide B (Bld) [Mass/Vol] 7259 pg/mL High <300 [place], [place] Comment on above: Pro-BNP results loyd ot be compared to BNP results. Natriuretic peptide B (Bld) [Mass/Vol] Pro-BNP Reference Range: [place], [place] Comment on above: Rule Out: <300 Sanchez Zone: Age <50 300-450 Age 50-75 300-900 Age >75 300-1800 Usually represents mild to moderate HF but other cardiopulmonary causes cannot be ruled out. Rule In: Age <50 >450 Age 50-75 >900 Age >75 >1800 CBC Auto Differentialon 08-09 Basophils (Bld) [#/Vol] 0.00 10*3/uL [place] Basophils/100 WBC (Bld) 0 % 0 - 2 % [place] Differential Type NOT REPORTED [place] Eosinophils (Bld) [#/Vol] 0.13 10*3/uL [place] Eosinophils/100 WBC (Bld) 1 % 1 - 4 % [place] Erythrocyte distribution width (RBC) [Ratio] 19.3 % High 11.8 - 14.4 % [place] Hematocrit (Bld) [Volume fraction] 43.5 % 36.3 - 47.1 % [place] Hemoglobin (Bld) [Mass/Vol] 12.3 g/dL 11.9 - 15.1 g/dL [place] Immature granulocytes (Bld) [#/Vol] 0.00 10*3/uL [place] Immature granulocytes (Bld) [#/Vol] 0 % 0 [place] Interpretation and review of laboratory results Abnormal [place] Lymphocytes (Bld) [#/Vol] 2.38 10*3/uL [place] Lymphocytes/100 WBC (Bld) 19 % Low 24 - 43 % [place] MCH (RBC) [Entitic mass] 21.5 pg Low 25.2 - 33.5 pg [place] MCHC (RBC) [Mass/Vol] 28.3 g/dL Low 28.4 - 34.8 g/dL [place] MCV (RBC) [Entitic vol] 76.0 fL Low 82.6 - 102.9 fL [place] Monocytes (Bld) [#/Vol] 0.88 10*3/uL [place] Monocytes/100 WBC (Bld) 7 % 3 - 12 % [place] Morphology Darryn (Bld) [Interp] HYPOCHROMASIA PRESENT [place] Platelet mean volume (Bld) [Entitic vol] NOT REPORTED 8.1 - 13.5 fL [place], [place] Platelets (Bld) [#/Vol] NOT REPORTED [place] Platelets (Bld) [#/Vol] See Reflexed IPF Result [place] RBC (Bld) [#/Vol] 5.72 10*6/uL High 3.95 - 5.1 1 m/uL [place] RBC morphology finding Nom (Bld) NOT REPORTED [place] Segmented neutrophils/100 WBC (Bld) 73 % High 36 - 65 % [place] Segs Absolute 9.11 [place] WBC (Bld) [#/Vol] 12.5 10*3/uL [place] WBC (Bld) [#/Vol] 0.0 10*3/uL 0.0 per 100 WBC [place] WBC Morphology NOT REPORTED [place] Comprehensive Metabolic Pane l w/ Reflex to MGon 08-26-2019 Albumin [Mass/Vol] 3.8 g/dL 3.5 - 5.2 g/dL [place], [place] Albumin/Globulin [Mass ratio] 0.9 {ratio} Low [place] ALP [Catalytic activity/Vol] 80 U/L 35 - 104 U/L [place] ALT [Catalytic activity/Vol] 14 U/L 5 - 33 U/L [place] Anion gap [Moles/Vol] 11 mmol/L 9 - 17 mmol/L [place] AST [Catalytic activity/Vol] 24 U/L <32 [place] Bilirubin Ql (U) 0.84 mg/dL 0.3 - 1.2 mg/dL [place], [place] Bun/Cre Ratio 21 [place], [place] Calcium [Mass/Vol] 9.4 mg/dL 8.6 - 10. 4 mg/dL [place] Chloride [Moles/Vol] 97 mmol/L Low 98 - 107 mmol/L [place] CO2 [Moles/Vol] 30 mmol/L 20 - 31 mmol/L [place] Creatinine [Mass/Vol] 0.76 mg/dL 0.5 - 0.9 mg/d L [place] GFR >60 >60 mL/min [place] GFR Non- >60 >60 mL/min [place] Glucose [Mass/Vol] 175 mg/dL High 70 - 99 mg/dL [place], [place] Interpretation and review of laboratory results Abnormal [place] Potassium [Moles/Vol] 4.2 mmol/L 3.7 - 5.3 mmol/L [place] Protein [Mass/Vol] 8.0 g/dL 6.4 - 8.3 g/dL [place], [place] Sodium [Moles/Vol] 138 mmol/L 135 - 144 mmol/L [place] Urea nitrogen [Mass/Vol] 16 mg/dL 8 - 23 mg/dL [place] EKG 12 Leadon 08-26-2019 Atrial Rate 97 BPM [place], [place] P-R Interval 146 ms [place], [place] Q-T Interval 402 ms [place] QRS Duration 174 ms [place] QTc Calculation (Bazett) 510 ms [place], [place] R Ada 147 degrees [place], [place] T Ada -29 degrees [place] Urea nitrogen [Mass/Vol] Normal sinus rhythm Right bundle branch block Left posterior fascicular block Bifascicular block Cannot rule out Inferior infarct , age undetermined Abnormal ECG When compared with ECG of 18-JUL-2019 20:10, Left posterior fascicular block is now Present QT has shortened Confirmed by Chace URBINA MD ([id number]) on 08/26/2019 3:02:03 PM [place], [place] Ventricular Rate 97 BPM [place], [place] Cristofer, Mhpn Incoming Ekg Results From [facility] - 08/26/2019 3:02 PM EDT Normal sinus rhythm Right bundle branch block Left posterior fascicular block Bifascicular block Cannot rule out Inferior infarct , age undetermined Abnormal ECG When compared with ECG of 18-JUL-2019 20:10, Left posterior fascicular block is now Present QT has shortened Confirmed by Chace URBINA MD ([id number]) on 08/26/2019 3:02:03 PM [place] Immature Platelet Fractionon 08-26-2019 Platelet, Fluorescence 154 [place], [place] Platelet, Immature Fraction 10.3 % 1.1 - 10.3 % [place] Metabolic Panelon 08-26-2019 GFR/1.73 sq M predicted among non-blacks MDRD (S/P/Bld) [Vol rate/Area] [place], [place] Comment on above: Average GFR for 60-6 9 years old: 85 mL/min/1.73sq m Chronic Kidney Disease: <60 mL/min/1.73sq m Kidney failure: <15 mL/min/1.73sq m eGFR calculated using average adult body mass. Additional eGFR calculator available at: http://www.[employer])/multiple_crcl_2012.htm Stage 1: Some kidney damage normal GFR Stage 2: Mild kidney damage GFR 60-89 Stage 3: Moderate kidney damage GFR 30-59 Stage 4: Severe kidney damage GFR 15-29 Stage 5: Severe kidney damage GFR <15 ESRD - chronic treatment by dialysis or transplant Microscopic Urinalysison Amorphous, UA NOT REPORTED None [place], [place] Bacteria, UA NOT REPORTED None [place], [place] Casts UA NOT REPORTED /LPF [place], [place] Crystals, UA NOT REPORTED None /HPF [place] Epithelial Cells UA 0 TO 2 [place] Mucus, UA NOT REPORTED None [place] Other Observations UA NOT REPORTED NOT REQ. M [place], [place] RBC (U) [#/Vol] 2 TO 5 [place], [place] Renal Epithelial, UA NOT REPORTED 0 /HPF [place] Trichomonas, UA NOT REPORTED None [facility] [place] WBC, UA 0 TO 2 [place] Yeast, UA NOT REPORTED None [place], [place] - [place] T4, freeon 08-26-2019 Thyroxine, Free 1.33 ng/dL 0.93 - 1.7 ng/dL [place] TSHon 08-26-2019 TSH Qn 1.96 m[IU]/L [place] Troponinon 08-26-2019 Interpretation and review of laboratory results Abnormal [place] Troponin I.cardiac [Mass/Vol] NOT REPORTED [place] Troponin T.cardiac [Mass/Vol] NOT REPORTED <0.03 ng/mL [place] Troponin, High Sensitivity 53 ng/L Critically high 0 - 14 ng/L [place] Comment on above: High Sensitivity Troponin values cannot be compared with other Troponin methodologies. Patients with high levels of Biotin oral intake (i.e >5mg/day) may have falsely decreased Troponin levels. Samples collected within 8 hours of biotin intake may require additional information for diagnosis. Interpretation and review of laboratory results Abnormal [place] Troponin I.cardiac [Mass/Vol] NOT REPORTED [place] Troponin T.cardiac [Mass/Vol] NOT REPORTED <0.03 ng/mL [place] Troponin, High Sensitivity 55 ng/L Critically high 0 - 14 ng/L [place] Comment on above: High Sensitivity Troponin values cannot be compared with other Troponin methodologies. Patients with high levels of Biotin oral intake (i.e >5mg/day) may have falsely decreased Troponin levels. Samples collected within 8 hours of biotin intake may require additional information for diagnosis. Urinalysis Reflex to Culture on 08-26-2019 Bilirubin Urine Negative NEGATIVE [place], [place] Color, UA YELLOW YELLOW [place], [place] Glucose, Ur Negative NEGATIVE [place] Interpretation and review of laboratory results Abnormal [place] Ketones Ql (U) Negative NEGATIVE [place] Leukocyte esterase Test strip Ql (U) Negative NEGATIVE [place] Nitrite, Urine Negative NEGATIVE [place] pH, UA 6.0 [place] Protein (U) [Mass/Vol] 2+ Abnormal NEGATIVE [place] Specific [place], UA 1.015 [place], [place] Turbidity UA CLEAR CLEAR [place], [place] Urinalysis Comments NOT REPORTED [place], [place] Urine Hgb 1+ Abnormal NEGATIVE [place], [place] Urobilinogen, Urine Normal Normal [place] XR CHEST PORTABLEon 08-26-19 20 Diffuse interstitial opacities throughout both lungs. Small bilateral pleural effusions. Retrocardiac airspace disease/consolidatio n. Findings are worsened since the prior study. Differential considerations include multifocal pneumonia versus edema. Follow-up is recommended to document resolution. [place] Cristofer, Mhpn Incoming Radiant Results From [facility] - 08/26/2019 7:55 AM EDT EXAMINATION: ONE XRAY VIEW OF THE CHEST 08/26/2019 7:32 am COMPARISON: 07/18/2019, 2053 hours HISTORY: ORDERING SYSTEM PROVIDED HISTORY: SOB, CHF TECHNOLOGIST PROVIDED HISTORY: SOB, CHF 63-year-old female with shortness of breath and CHF FINDINGS: AP portable upright view of the chest. Left-sided subclavian approach cardiac pacemaker in place, stable. Trachea midline. No obvious pneumothorax. Diffuse interstitial opacities throughout both lungs. Small bilateral pleural effusions. Retrocardiac airspace disease/consolidatio n. Findings are worsened since the prior study. Stable mild cardiomegaly. Cardiac and mediastinal contours remain unchanged. Visualized osseous structures remain unchanged. IMPRESSION: Diffuse interstitial opacities throughout both lungs. Small bilateral pleural effusions. Retrocardiac airspace disease/consolidatio n. Findings are worsened since the prior study. Differential considerations include multifocal pneumonia versus edema. Follow-up is recommended to document resolution. [place] EXAMINATION: ONE XRAY VIEW OF THE CHEST 08/26/2019 7:32 am COMPARISON: 07/18/2019, 2053 hours HISTORY: ORDERING SYSTEM PROVIDED HISTORY: NITESH, CHF TECHNOLOGIST PROVIDED HISTORY: SOB, CHF 63-year-old female with shortness of breath and CHF FINDINGS: AP portable upright view of the chest. Left-sided subclavian approach cardiac pacemaker in place, stable. Trachea midline. No obvious pneumothorax. Diffuse interstitial opacities throughout both lungs. Small bilateral pleural effusions. Retrocardiac airspace disease/consolidatio n. Findings are worsened since the prior study. Stable mild cardiomegaly. Cardiac and mediastinal contours remain unchanged. Visualized osseous structures remain unchanged. [place] BASIC METABOLIC PANELon 07-09 Anion gap [Moles/Vol] 9 mmol/L 9 - 17 mmol/L [place] Bun/Cre Ratio 27 [place], [place] Calcium [Mass/Vol] 9.3 mg/dL 8.6 - 10. 4 mg/dL [place] Chloride [Moles/Vol] 95 mmol/L Low 98 - 107 mmol/L [place] CO2 [Moles/Vol] 32 mmol/L High 20 - 31 mmol/L [place] Creatinine [Mass/Vol] 0.83 mg/dL 0.5 - 0.9 mg/d L [place] GFR >60 >60 mL/min [place] GFR Non- >60 >60 mL/min [place] Glucose [Mass/Vol] 132 mg/dL High 70 - 99 mg/dL [place], [place] Interpretation and review of laboratory results Abnormal [place] Potassium [Moles/Vol] 3.5 mmol/L Low 3.7 - 5.3 mmol/L [place] Sodium [Moles/Vol] 136 mmol/L 135 - 144 mmol/L [place] Urea nitrogen [Mass/Vol] 22 mg/dL 8 - 23 mg/dL [place] Metabolic Panelon 07-21-2019 GFR/1.73 sq M predicted among non-blacks MDRD (S/P/Bld) [Vol rate/Area] [place], [place] Comment on above: Stage 1: Some kidney damage normal GFR Stage 2: Mild kidney damage GFR 60-89 Stage 3: Moderate kidney damage GFR 30-59 Stage 4: Severe kidney damage GFR 15-29 Stage 5: Severe kidney damage GFR <15 ESRD - chronic treatment by dialysis or transplant Average GFR for 60-6 9 years old: 85 mL/min/1.73sq m Chronic Kidney Disease: <60 mL/min/1.73sq m Kidney failure: <15 mL/min/1.73sq m eGFR calculated using average adult body mass. Additional eGFR calculator available at: http://www.[employer])/multiple_crcl_2012.htm BASIC METABOLIC PANELon 07-09 Anion gap [Moles/Vol] 7 mmol/L Low 9 - 17 mmol/L [place] Bun/Cre Ratio 17 [place], [place] Calcium [Mass/Vol] 9.1 mg/dL 8.6 - 10. 4 mg/dL [place] Chloride [Moles/Vol] 95 mmol/L Low 98 - 107 mmol/L [place] CO2 [Moles/Vol] 36 mmol/L High 20 - 31 mmol/L [place] Creatinine [Mass/Vol] 0.96 mg/dL High 0.5 - 0.9 mg/d L [place], [place] GFR >60 >60 mL/min [place] GFR Non- 59 mL/min Low >60 [place], [place] Glucose [Mass/Vol] 144 mg/dL High 70 - 99 mg/dL [place] Interpretation and review of laboratory results Abnormal [place] Potassium [Moles/Vol] 3.8 mmol/L 3.7 - 5.3 mmol/L [place] Sodium [Moles/Vol] 138 mmol/L 135 - 144 mmol/L [place] Urea nitrogen [Mass/Vol] 16 mg/dL 8 - 23 mg/dL [place] PAPA-2C-J-MODE COMPLETEon [facility] Transthoracic Echocardiography Report (TTE) Patient Name SAMIR Date of Study 07/20/2019 SAMREEN Orozco Date of 1955 Gender Female Age 63 year(s) Race Room Number 0302 Height: 66 inch, 167.64 cm Corporate ID [id number] Weight: 241 pounds, 109.3 kg # Patient Acct [id number] BSA: 2.17 m^2 BMI: 38.9 kg/m^2 # MR # [id number] Racking Technician Yaneth Rodriguez Interpreting Physician Anika Stone Fellow Referring Nurse Practitioner Interpreting Referring Physician Jean Borrero Fellow Type of Study TTE procedure:2D Echocardiogram, Color Doppler, Doppler, M-Mode. Procedure Date Date: 07/20/2019 Start: 01:51 PM Study Location: [facility] Indications:Dyspnea/ SOB. History / Tech. Comments: SOB, CHF PMHX: HTN, COPD, DM Patient Status: Inpatient Height: 66 inches Weight: 241 pounds BSA: 2.17 m^2 BMI: 38.9 kg/m^2 BP: 151/60 mmHg CONCLUSIONS Summary Global left ventricular systolic function appears preserved with an estimated ejection fraction of 60%. The left ventricular cavity size is within normal limits and the left ventricular wall thickness is severely increased. No definite specific wall motion abnormalities were identified. Severe aortic stenosis with peak and mean gradient of 70 and 49 mmHg. Mitral annular calcification is seen with mean gradient of 3.8 mmHg. No significant mitral regurgitation. Normal tricuspid valve structure with mild tricuspid regurgitation. Evidence of mild (grade I) diastolic dysfunction is seen. No prior studies were available for comparison. Consider corrective aortic valve surgery/intervention if clinically indicated. Signature FINDINGS Left Atrium Left atrium is normal in size. Left Ventricle Global left ventricular systolic function appears preserved with an estimated ejection fraction of 60%. The left ventricular cavity size is within normal limits and the left ventricular wall thickness is severely increased. No definite specific wall motion abnormalities were identified. Right Atrium What appears to be a pacing lead seen in the right atrium and right ventricle. Right Ventricle Normal right ventricular size and function. Mitral Valve Mitral annular calcification is seen with mean gradient of 3.8 mmHg. No significant mitral regurgitation. Aortic Valve Severe aortic stenosis with peak and mean gradient of 70 and 49 mmHg. Tricuspid Valve Normal tricuspid valve structure with mild tricuspid regurgitation. Pulmonic Valve The pulmonic valve is normal in structure. Pericardial Effusion No significant pericardial effusion is seen. Miscellaneous Evidence of mild (grade I) diastolic dysfunction is seen. Normal aortic root dimension. M-mode / 2D Measurements & Calculations: LVIDd:4.89 cm(3.7 - 5.6 cm) Diastolic Volume:116.69 ml LVIDs:4.07 cm(2.2 - 4.0 cm) Systolic Volume:39.77 ml IVSd:2.46 cm(0.6 - 1.1 cm) Aortic Root:3.59 cm(2.0 - 3.7 cm) LVPWd:2.07 cm(0.6 - 1.1 cm) LA Dimension: 4.53 cm(1.9 - 4.0 cm) Fractional Shortenin.77 % LA volume/Index: 39.1 ml /18m^2 Calculated LVEF (%): 65.92 % AV Cusp Separation: 1.31 cm LVOT:2 cm Mitral: Aortic Valve Area (P1/2-Time): 2.75 cm^2 Peak Velocity: 4.18 m/s Peak E-Wave: 1.21 m/s Mean Velocity: 2.75 m/s Peak A-Wave: 1.19 m/s Peak Gradient: 69.89 mmHg E/A Ratio: 1.02 Mean Gradient: 48.62 mmHg Peak Gradient: 5.83 mmHg Mean Gradient: 3.8 mmHg Acceleration Time: 128.46 msec P1/2t: 80.03 msec Area (continuity): 0.74 cm^2 AV VTI: 107.73 cm Tricuspid: Pulmonic: Estimated RVSP: 20.64 mmHg Peak TR Velocity: 2.10 m/s Acceleration Time: 74.59 msec Peak TR Gradient: 17.64 mmHg Estimated RA Pressure: 3 mmHg Estimated PASP: 20.64 mmHg Diastology / Tissue Doppler Lateral Wall E' velocity:0.09 m/s Lateral Wall E/E':23.48 [facility] [place], [place] Cristofer, Mhpn Incoming Cardio Results From [facility] - 07/20/2019 5:25 PM EDT [facility] Transthoracic Echocardiography Report (TTE) Patient Name SAMIR Date of Study 07/20/2019 SAMREEN Orozco Date of 1955 Gender Female Age 63 year(s) Race Room Number 0302 Height: 66 inch, 167.64 cm Corporate ID [id number] Weight: 241 pounds, 109.3 kg # Patient Acct [id number] BSA: 2.17 m^2 BMI: 38.9 kg/m^2 # MR # [id number] Racking Technician Yaneth Rodriguez Interpreting Physician Anika Stone Fellow Referring Nurse Practitioner Interpreting Referring Physician Jean Borrero Fellow Type of Study TTE procedure:2D Echocardiogram, Color Doppler, Doppler, M-Mode. Procedure Date Date: 07/20/2019 Start: 01:51 PM Study Location: [facility] Indications:Dyspnea/ SOB. History / Tech. Comments: SOB, CHF PMHX: HTN, COPD, DM Patient Status: Inpatient Height: 66 inches Weight: 241 pounds BSA: 2.17 m^2 BMI: 38.9 kg/m^2 BP: 151/60 mmHg CONCLUSIONS Summary Global left ventricular systolic function appears preserved with an estimated ejection fraction of 60%. The left ventricular cavity size is within normal limits and the left ventricular wall thickness is severely increased. No definite specific wall motion abnormalities were identified. Severe aortic stenosis with peak and mean gradient of 70 and 49 mmHg. Mitral annular calcification is seen with mean gradient of 3.8 mmHg. No significant mitral regurgitation. Normal tricuspid valve structure with mild tricuspid regurgitation. Evidence of mild (grade I) diastolic dysfunction is seen. No prior studies were available for comparison. Consider corrective aortic valve surgery/intervention if clinically indicated. Signature - - - - FINDINGS Left Atrium Left atrium is normal in size. Left Ventricle Global left ventricular systolic function appears preserved with an estimated ejection fraction of 60%. The left ventricular cavity size is within normal limits and the left ventricular wall thickness is severely increased. No definite specific wall motion abnormalities were identified. Right Atrium What appears to be a pacing lead seen in the right atrium and right ventricle. Right Ventricle Normal right ventricular size and function. Mitral Valve Mitral annular calcification is seen with mean gradient of 3.8 mmHg. No significant mitral regurgitation. Aortic Valve Severe aortic stenosis with peak and mean gradient of 70 and 49 mmHg. Tricuspid Valve Normal tricuspid valve structure with mild tricuspid regurgitation. Pulmonic Valve The pulmonic valve is normal in structure. Pericardial Effusion No significant pericardial effusion is seen. Miscellaneous Evidence of mild (grade I) diastolic dysfunction is seen. Normal aortic root dimension. M-mode / 2D Measurements & Calculations: LVIDd:4.89 cm(3.7 - 5.6 cm) Diastolic Volume:116.69 ml LVIDs:4.07 cm(2.2 - 4.0 cm) Systolic Volume:39.77 ml IVSd:2.46 cm(0.6 - 1.1 cm) Aortic Root:3.59 cm(2.0 - 3.7 cm) LVPWd:2.07 cm(0.6 - 1.1 cm) LA Dimension: 4.53 cm(1.9 - 4.0 cm) Fractional Shortenin.77 % LA volume/Index: 39.1 ml /18m^2 Calculated LVEF (%): 65.92 % AV Cusp Separation: 1.31 cm LVOT:2 cm Mitral: Aortic Valve Area (P1/2-Time): 2.75 cm^2 Peak Velocity: 4.18 m/s Peak E-Wave: 1.21 m/s Mean Velocity: 2.75 m/s Peak A-Wave: 1.19 m/s Peak Gradient: 69.89 mmHg E/A Ratio: 1.02 Mean Gradient: 48.62 mmHg Peak Gradient: 5.83 mmHg Mean Gradient: 3.8 mmHg Acceleration Time: 128.46 msec P1/2t: 80.03 msec Area (continuity): 0.74 cm^2 AV VTI: 107.73 cm Tricuspid: Pulmonic: Estimated RVSP: 20.64 mmHg Peak TR Velocity: 2.10 m/s Acceleration Time: 74.59 msec Peak TR Gradient: 17.64 mmHg Estimated RA Pressure: 3 mmHg Estimated PASP: 20.64 mmHg Diastology / Tissue Doppler Lateral Wall E' velocity:0.09 m/s Lateral Wall E/E':23.48 [place] Metabolic Panelon 07-20-2019 GFR/1.73 sq M predicted among non-blacks MDRD (S/P/Bld) [Vol rate/Area] [place] Comment on above: Average GFR for 60-6 9 years old: 85 mL/min/1.73sq m Chronic Kidney Disease: <60 mL/min/1.73sq m Kidney failure: <15 mL/min/1.73sq m eGFR calculated using average adult body mass. Additional eGFR calculator available at: http://www.[employer].fanatix/multiple_crcl_2012.htm Stage 1: Some kidney damage normal GFR Stage 2: Mild kidney damage GFR 60-89 Stage 3: Moderate kidney damage GFR 30-59 Stage 4: Severe kidney damage GFR 15-29 Stage 5: Severe kidney damage GFR <15 ESRD - chronic treatment by dialysis or transplant BASIC METABOLIC PANELon 07-09 Anion gap [Moles/Vol] 13 mmol/L 9 - 17 mmol/L [place] Bun/Cre Ratio 14 [place] Calcium [Mass/Vol] 9.5 mg/dL 8.6 - 10. 4 mg/dL [place] Chloride [Moles/Vol] 94 mmol/L Low 98 - 107 mmol/L [place] CO2 [Moles/Vol] 31 mmol/L 20 - 31 mmol/L [place] Creatinine [Mass/Vol] 1.01 mg/dL High 0.5 - 0.9 mg/d L [place] GFR >60 >60 mL/min [place] GFR Non- 56 mL/min Low >60 [place] Glucose [Mass/Vol] 150 mg/dL High 70 - 99 mg/dL [place] Interpretation and review of laboratory results Abnormal [place] Potassium [Moles/Vol] 3.3 mmol/L Low 3.7 - 5.3 mmol/L [place] Sodium [Moles/Vol] 138 mmol/L 135 - 144 mmol/L [place] Urea nitrogen [Mass/Vol] 14 mg/dL 8 - 23 mg/dL [place] EKG 12 Leadon 07-19-2019 Atrial Rate 95 BPM [place] P Ada 58 degrees [place] P-R Interval 166 ms [place] Q-T Interval 448 ms [place] QRS Duration 178 ms [place] QTc Calculation (Bazett) 562 ms [place] R Ada 86 degrees [place] T Ada -23 degrees [place] Urea nitrogen [Mass/Vol] Normal sinus rhythm Possible Left atrial enlargement Right bundle branch block T wave abnormality, consider inferior ischemia Abnormal ECG No previous ECGs available Confirmed by LAVERNE BARRAZA ([id number]) on 07/19/2019 5:11:12 PM [place] Ventricular Rate 95 BPM [place], [place] Cristofer, Mhpn Incoming Ekg Results From [facility] - 07/19/2019 5:11 PM EDT Normal sinus rhythm Possible Left atrial enlargement Right bundle branch block T wave abnormality, consider inferior ischemia Abnormal ECG No previous ECGs available Confirmed by LAVERNE BARRAZA ([id number]) on 07/19/2019 5:11:12 PM [place] Metabolic Panelon 07-19-2019 GFR/1.73 sq M predicted among non-blacks MDRD (S/P/Bld) [Vol rate/Area] [place] Comment on above: Average GFR for 60-6 9 years old: 85 mL/min/1.73sq m Chronic Kidney Disease: <60 mL/min/1.73sq m Kidney failure: <15 mL/min/1.73sq m eGFR calculated using average adult body mass. Additional eGFR calculator available at: http://www.[employer])/multiple_crcl_2012.htm Stage 1: Some kidney damage normal GFR Stage 2: Mild kidney damage GFR 60-89 Stage 3: Moderate kidney damage GFR 30-59 Stage 4: Severe kidney damage GFR 15-29 Stage 5: Severe kidney damage GFR <15 ESRD - chronic treatment by dialysis or transplant Basic Metabolic Panelon Anion gap [Moles/Vol] 12 mmol/L 9 - 17 mmol/L [place] Bun/Cre Ratio 13 [place] Calcium [Mass/Vol] 9.3 mg/dL 8.6 - 10. 4 mg/dL [place] Chloride [Moles/Vol] 100 mmol/L 98 - 107 mmol/L [place] CO2 [Moles/Vol] 29 mmol/L 20 - 31 mmol/L [place] Creatinine [Mass/Vol] 1.03 mg/dL High 0.5 - 0.9 mg/d L [place] GFR >60 >60 mL/min [place] GFR Non- 54 mL/min Low >60 [place] Glucose [Mass/Vol] 162 mg/dL High 70 - 99 mg/dL [place] Potassium [Moles/Vol] 3.2 mmol/L Low 3.7 - 5.3 mmol/L [place] Sodium [Moles/Vol] 141 mmol/L 135 - 144 mmol/L [place] Urea nitrogen [Mass/Vol] 13 mg/dL 8 - 23 mg/dL [place] Brain Natriuretic Peptideon 07-18-2019 Natriuretic peptide B (Bld) [Mass/Vol] 6646 pg/mL High <300 [place] Comment on above: Pro-BNP results loyd ot be compared to BNP results. Natriuretic peptide B (Bld) [Mass/Vol] Pro-BNP Reference Range: [place] Comment on above: Rule Out: <300 Sanchez Zone: Age <50 300-450 Age 50-75 300-900 Age >75 300-1800 Usually represents mild to moderate HF but other cardiopulmonary causes cannot be ruled out. Rule In: Age <50 >450 Age 50-75 >900 Age >75 >1800 CBCon 07-18-2019 Erythrocyte distribution width (RBC) [Ratio] 19.1 % High 11.8 - 14.4 % [place] Hematocrit (Bld) [Volume fraction] 42.2 % 36.3 - 47.1 % [place] Hemoglobin (Bld) [Mass/Vol] 11.2 g/dL Low 11.9 - 15.1 g/dL [place] Interpretation and review of laboratory results Abnormal [place] MCH (RBC) [Entitic mass] 20.2 pg Low 25.2 - 33.5 pg [place] MCHC (RBC) [Mass/Vol] 26.5 g/dL Low 28.4 - 34.8 g/dL [place] MCV (RBC) [Entitic vol] 76.0 fL Low 82.6 - 102.9 fL [place] Platelet mean volume (Bld) [Entitic vol] 10.4 fL 8.1 - 13.5 fL [place] Platelets (Bld) [#/Vol] 176 10*3/uL [place] RBC (Bld) [#/Vol] 5.55 10*6/uL High 3.95 - 5.1 1 m/uL [place] WBC (Bld) [#/Vol] 0.0 10*3/uL 0.0 per 100 WBC M [place] WBC (Bld) [#/Vol] 9.7 10*3/uL [place] Chest Pulmonary Embolism W Contraston 07-18-2019 1. No evidence of acute pulmonary embolism. 2. Moderate pulmonary interstitial edema. 3. Suspected overlying multifocal bilateral lung alveolar edema. 4. Moderate cardiomegaly. 5. Trace bilateral layering posterior pleural effusions, as discussed above. [place] EXAMINATION: CTA OF THE CHEST 07/18/2019 9:28 pm TECHNIQUE: CTA of the chest was performed after the administration of intravenous contrast. Multiplanar reformatted images are provided for review. MIP images are provided for review. Dose modulation, iterative reconstruction, and/or weight based adjustment of the mA/kV was utilized to reduce the radiation dose to as low as reasonably achievable. COMPARISON: Chest one view July 18, 2019 HISTORY: ORDERING SYSTEM PROVIDED HISTORY: shortness of breath, hypoxia TECHNOLOGIST PROVIDED HISTORY: shortness of breath, hypoxia FINDINGS: Pulmonary Arteries: Pulmonary arteries are adequately opacified for evaluation. No evidence of intraluminal filling defect to suggest pulmonary embolism. Main pulmonary artery is normal in caliber. Mediastinum: No evidence of mediastinal lymphadenopathy. The heart is moderately enlarged with otherwise unremarkable configuration. No evidence of pericardial effusion is seen. There is no acute abnormality of the thoracic aorta. Lungs/pleura: Scattered interlobular septal thickening is seen consistent with presence of moderate trace bilateral layering posterior pleural effusions are seen, greatest on the left measuring up to 7 mm in depth. Pulmonary interstitial edema. Multifocal airspace disease within the bilateral lungs suggest overlying alveolar edema. Upper Abdomen: Limited images of the upper abdomen are unremarkable. Soft Tissues/Bones: No acute bone or soft tissue abnormality. [place] Cristofer, Mhpn Incoming Radiant Results From [facility] - 07/18/2019 10:11 PM EDT EXAMINATION: CTA OF THE CHEST 07/18/2019 9:28 pm TECHNIQUE: CTA of the chest was performed after the administration of intravenous contrast. Multiplanar reformatted images are provided for review. MIP images are provided for review. Dose modulation, iterative reconstruction, and/or weight based adjustment of the mA/kV was utilized to reduce the radiation dose to as low as reasonably achievable. COMPARISON: Chest one view July 18, 2019 HISTORY: ORDERING SYSTEM PROVIDED HISTORY: shortness of breath, hypoxia TECHNOLOGIST PROVIDED HISTORY: shortness of breath, hypoxia FINDINGS: Pulmonary Arteries: Pulmonary arteries are adequately opacified for evaluation. No evidence of intraluminal filling defect to suggest pulmonary embolism. Main pulmonary artery is normal in caliber. Mediastinum: No evidence of mediastinal lymphadenopathy. The heart is moderately enlarged with otherwise unremarkable configuration. No evidence of pericardial effusion is seen. There is no acute abnormality of the thoracic aorta. Lungs/pleura: Scattered interlobular septal thickening is seen consistent with presence of moderate trace bilateral layering posterior pleural effusions are seen, greatest on the left measuring up to 7 mm in depth. Pulmonary interstitial edema. Multifocal airspace disease within the bilateral lungs suggest overlying alveolar edema. Upper Abdomen: Limited images of the upper abdomen are unremarkable. Soft Tissues/Bones: No acute bone or soft tissue abnormality. IMPRESSION: 1. No evidence of acute pulmonary embolism. 2. Moderate pulmonary interstitial edema. 3. Suspected overlying multifocal bilateral lung alveolar edema. 4. Moderate cardiomegaly. 5. Trace bilateral layering posterior pleural effusions, as discussed above. [place] D-Dimer, Quantitativeon D-Dimer, Quant 0.99 High [place], [place] Comment on above: Elevated levels of D dimer can be seen in any state of coagulation activation including DVT, PE, arterial thrombosis, DIC, inflamatory disease, trauma, malignancy, sepsis, infection, hematoma, liver disease, post surgical state, , atherosclerosis, old age. When combined with a low clinical probability, a D dimer value of <0.50 mg/L is considered negative for DVT and PE (negative predictive value of 98%). Interpretation and review of laboratory results Abnormal [place] Metabolic Panelon 07-18-2019 GFR/1.73 sq M predicted among non-blacks MDRD (S/P/Bld) [Vol rate/Area] [place] Comment on above: Stage 1: Some kidney damage normal GFR Stage 2: Mild kidney damage GFR 60-89 Stage 3: Moderate kidney damage GFR 30-59 Stage 4: Severe kidney damage GFR 15-29 Stage 5: Severe kidney damage GFR <15 ESRD - chronic treatment by dialysis or transplant Average GFR for 60-6 9 years old: 85 mL/min/1.73sq m Chronic Kidney Disease: <60 mL/min/1.73sq m Kidney failure: <15 mL/min/1.73sq m eGFR calculated using average adult body mass. Additional eGFR calculator available at: http://www.[employer])/multiple_crcl_2012.htm Otheron 07-18-2019 Interpretation and review of laboratory results Abnormal [place] Troponinon 07-18-2019 Interpretation and review of laboratory results Abnormal [place] Troponin I.cardiac [Mass/Vol] NOT REPORTED [place] Troponin T.cardiac [Mass/Vol] NOT REPORTED <0.03 ng/mL [place] Troponin, High Sensitivity 49 ng/L High 0 - 14 ng/L [place] Comment on above: High Sensitivity Troponin values cannot be compared with other Troponin methodologies. Patients with high levels of Biotin oral intake (i.e >5mg/day) may have falsely decreased Troponin levels. Samples collected within 8 hours of biotin intake may require additional information for diagnosis. Troponin I.cardiac [Mass/Vol] NOT REPORTED [place] Troponin T.cardiac [Mass/Vol] NOT REPORTED <0.03 ng/mL [place] Troponin, High Sensitivity 48 ng/L High 0 - 14 ng/L [place] Comment on above: High Sensitivity Troponin values cannot be compared with other Troponin methodologies. Patients with high levels of Biotin oral intake (i.e >5mg/day) may have falsely decreased Troponin levels. Samples collected within 8 hours of biotin intake may require additional information for diagnosis. XR CHEST 1 VWon 07-18-2019 EXAMINATION: ONE XRAY VIEW OF THE CHEST 07/18/2019 8:03 pm COMPARISON: None. HISTORY: ORDERING SYSTEM PROVIDED HISTORY: hypoxia and SOB TECHNOLOGIST PROVIDED HISTORY: hypoxia and SOB FINDINGS: Diffuse prominence of interstitial lung markings. No confluent infiltrate. No pneumothorax or significant pleural effusion. The heart is mildly enlarged. There is a dual lead left subclavian AICD. No acute bone finding. [place] Cristofer, Mhpn Incoming Radiant Results From [facility] - 07/18/2019 8:28 PM EDT EXAMINATION: ONE XRAY VIEW OF THE CHEST 07/18/2019 8:03 pm COMPARISON: None. HISTORY: ORDERING SYSTEM PROVIDED HISTORY: hypoxia and SOB TECHNOLOGIST PROVIDED HISTORY: hypoxia and SOB FINDINGS: Diffuse prominence of interstitial lung markings. No confluent infiltrate. No pneumothorax or significant pleural effusion. The heart is mildly enlarged. There is a dual lead left subclavian AICD. No acute bone finding. IMPRESSION: Interstitial prominence may represent manifestation of edema or pneumonia, possibly an atypical or viral pneumonia. The heart is mildly enlarged. Clinical correlation and follow-up recommended. [place] Interstitial prominence may represent manifestation of edema or pneumonia, possibly an atypical or viral pneumonia. The heart is mildly enlarged. Clinical correlation and follow-up recommended. [place] POC GLUCOSE LABon 12-17-2018 Glucose [Mass/Vol] 155 mg/dL High 70-100 [facility] Comment on above: Performed By: #### 4 1000, 82341, 06406, 28975, 10855 #### [facility] [address] [place] [address], [facility] Glucose [Mass/Vol] 214 mg/dL High 70-100 [facility] Comment on above: Performed By: #### 4 1000, 11893, 17311, 60829, 30855 #### [facility] [address] [place] [address], [facility] Glucose [Mass/Vol] 113 mg/dL High 70-100 [facility] Comment on above: Performed By: #### 4 1000, 59950, 09634, 06134, 44034 #### [facility] [address] [place] [address], [facility] BASIC METABOLIC PANELon Calcium [Mass/Vol] 10.0 mg/dL Normal 8.6-10.3 [facility] Comment on above: Order Comment: No: D o not add to previous draw Performed By: #### 4 1000, 52666, 14347, 39183, 09177 #### [facility] [address] [place] [id number], [facility] Chloride [Moles/Vol] 96 mmol/L Low 98-107 [facility] Comment on above: Order Comment: No: D o not add to previous draw Performed By: #### 4 1000, 53497, 42741, 34775, 15359 #### [facility] [address] [place] [address], [facility] CO2 [Moles/Vol] 40 mmol/L High 21-31 [facility] Comment on above: Order Comment: No: D o not add to previous draw Performed By: #### 4 1000, 71514, 30573, 32242, 34199 #### [facility] [address] [place] [address], [place] Creatinine [Mass/Vol] 0.99 mg/dL Normal 0.60-1.20 [facility] Comment on above: Order Comment: No: D o not add to previous draw Performed By: #### 4 1000, 29949, 76248, 52442, 88911 #### [facility] [address] [place] [address], [facility] GFR/1.73 sq M predicted among blacks MDRD (S/P/Bld) [Vol rate/Area] mL/min/{1.73_m2} Normal >60 [facility] Comment on above: Order Comment: No: D o not add to previous draw Performed By: #### 4 1000, 18851, 68328, 98619, 17660 #### [facility] [address] [place] [address], [place] GFR/1.73 sq M predicted among non-blacks MDRD (S/P/Bld) [Vol rate/Area] 57 ml/min/1.73sq m Abnormal >60 [facility] Comment on above: Order Comment: No: D o not add to previous draw Performed By: #### 4 1000, 88807, 91555, 67787, 12869 #### [facility] [address] [place] [address], [place] Glucose [Mass/Vol] 121 mg/dL High 70-100 [facility] Comment on above: Order Comment: No: D o not add to previous draw Performed By: #### 4 1000, 25238, 76583, 59844, 02157 #### [facility] [address] [place] [address], [place] Potassium [Moles/Vol] 4.3 mmol/L Normal 3.5-5.1 [facility] Comment on above: Order Comment: No: D o not add to previous draw Performed By: #### 4 1000, 60489, 86231, 44765, 45862 #### [facility] [address] [place] [address], [facility] Sodium [Moles/Vol] 141 mmol/L Normal 136-145 [facility] Comment on above: Order Comment: No: D o not add to previous draw Performed By: #### 4 1000, 56633, 39000, 04957, 39549 #### [facility] [address] [place] [id number], [facility] Urea nitrogen [Mass/Vol] 32 mg/dL High 7-25 [facility] Comment on above: Order Comment: No: D o not add to previous draw Performed By: #### 4 1000, 63967, 50703, 72676, 97042 #### [facility] [address] CBC COMPLETE BLOOD COUNTon 0 - Erythrocyte distribution width (RBC) [Ratio] 16.3 % High 11.5-15.0 [facility] Comment on above: Order Comment: No: D o not add to previous draw Performed By: #### 4 1000, 51362, 91182, 56662, 49517 #### [facility] [address] [place] [address], [facility] Hematocrit (Bld) [Volume fraction] 49.0 % High 36.0-45.0 [facility] Comment on above: Order Comment: No: D o not add to previous draw Performed By: #### 4 1000, 62072, 88653, 63672, 33464 #### [facility] [address] [place] [id number], [facility] Hemoglobin (Bld) [Mass/Vol] 14.5 g/dL Normal 12.0-15.0 [facility] Comment on above: Order Comment: No: D o not add to previous draw Performed By: #### 4 1000, 31166, 02399, 74732, 43490 #### [facility] [address] MCH (RBC) [Entitic mass] 26.6 pg Low 27.0-33.0 [facility] Comment on above: Order Comment: No: D o not add to previous draw Performed By: #### 4 1000, 71642, 80825, 14645, 08383 #### [facility] [address] MCHC (RBC) [Mass/Vol] 29.6 g/dL Low 32.0-35.0 [facility] Comment on above: Order Comment: No: D o not add to previous draw Performed By: #### 4 1000, 24826, 10327, 94960, 37630 #### [facility] [address] MCV (RBC) [Entitic vol] 89.9 fL Normal 82.0-98.0 [facility] Comment on above: Order Comment: No: D o not add to previous draw Performed By: #### 4 1000, 76769, 81326, 15903, 34808 #### [facility] [address] Nucleated RBC/100 WBC (Bld) [Ratio] 0 % Normal 0-0 [facility] Comment on above: Order Comment: No: D o not add to previous draw Performed By: #### 4 1000, 27023, 39764, 44148, 74389 #### [facility] [address] [place] [address], [facility] PLAT CNT 157 10*3/uL Normal 150-400 [facility] Comment on above: Order Comment: No: D o not add to previous draw Performed By: #### 4 1000, 70885, 88687, 57599, 25618 #### [facility] [address] [place] [address], [place] RBC (Bld) [#/Vol] 5.45 10*6/uL High 3.80-5.00 [facility] Comment on above: Order Comment: No: D o not add to previous draw Performed By: #### 4 1000, 63221, 64475, 02643, 50255 #### [facility] [address] [place] [address], [place] WBC (Bld) [#/Vol] 12.62 10*3/uL High 4.00-10.60 [facility] Comment on above: Order Comment: No: D o not add to previous draw Performed By: #### 4 1000, 90175, 08735, 32725, 66096 #### [facility] [address] [place] [address], [place] POC GLUCOSE LABon 12-16-2018 Glucose [Mass/Vol] 250 mg/dL High 70-100 [facility] Comment on above: Performed By: #### 4 1000, 13589, 28379, 10964, 46669 #### [facility] [address] [place] [address], [place] Glucose [Mass/Vol] 276 mg/dL High 70-100 [facility] Comment on above: Performed By: #### 4 1000, 46849, 24390, 62037, 86151 #### [facility] [address] [place] [address], [place] Glucose [Mass/Vol] 197 mg/dL High 70-100 [facility] Comment on above: Performed By: #### 4 1000, 57259, 14817, 22058, 27890 #### [facility] [address] [place] [address], [place] Glucose [Mass/Vol] 125 mg/dL High 70-100 [facility] Comment on above: Performed By: #### 4 1000, 16379, 85940, 09232, 31403 #### [facility] [address] Pulmonary Functionon 019 Pulmonary Function MR #: [id number] [facility] PT. Name: Samreen Dawson Date: 12/12/2018 Date of : 1955 Patient Type: I Pulmonary Function INTERPRETATION CLINICAL INDICATION: This is a 62-year-old female with a BMI of 38.7 who has a [id number] history of smoking quit approximately 9 months ago and is having dyspnea walking less than 100 yards, productive cough, frequent wheeze. She also has a history of severe aortic stenosis and this is a preop tests. LUNG MECHANICS: There is a severe restriction of FEV1 and FVC with a possible mild degree of obstruction. No bronchodilator response was ordered. Maximum voluntary ventilation maneuver is moderate to severely reduced. It is appropriate to the degree of the restriction noted above. LUNG VOLUMES: (NITROGEN WASHOUT TECHNIQUE) There is a normal total lung capacity and severely elevated residual volume. Slow vital capacity is severely reduced as is inspiratory capacity. Pattern is consistent with peripheral gas trapping. LUNG VOLUMES: (BODY BOX TECHNIQUE) There is a moderately reduced total lung capacity and normal residual volume. LUNG DIFFUSION: DLCO corrected is moderate to severely reduced. Alveolar volume is also severely reduced. ARTERIAL BLOOD GASES: There is an elevated CO2 at rest. Significant hypoxia. AA gradient is roughly 3 times that expected for age. Oxygen saturation is 82 percent. Carboxyhemoglobin is elevated consistent with someone who is actively smoking. CLINICAL IMPRESSION: Overall impression is consistent with severe degree of restriction with mild to moderate degree of obstruction. There is severe elevation of CO2 at rest. Severe hypoxia. Patient's perioperative pulmonary risks would be very high. Electronically Signed by: Mickey Lester M.D. 12/16/2018 12:00 P Mickey Lester M.D. [facility] Date Dict: 12/16/2018/11:49 Pam/Mickey Lester M.D. Date Trans: 12/16/2018 11:49 Pam/ [id number] Normal [facility] BASIC METABOLIC PANELon 08-0 Calcium [Mass/Vol] 9.1 mg/dL Normal 8.6-10.3 [facility] Comment on above: Order Comment: No: D o not add to previous draw Performed By: #### 4 1000, 54925, 82587, 42816, 87662 #### [facility] [address] [place] [address], [place] Chloride [Moles/Vol] 101 mmol/L Normal 98-107 [facility] Comment on above: Order Comment: No: D o not add to previous draw Performed By: #### 4 1000, 55653, 17416, 33670, 74732 #### [facility] [address] [place] [address], [place] CO2 [Moles/Vol] 31 mmol/L Normal 21-31 [facility] Comment on above: Order Comment: No: D o not add to previous draw Performed By: #### 4 1000, 29266, 65907, 79385, 10916 #### [facility] [address] [place] [address], [place] Creatinine [Mass/Vol] 1.02 mg/dL Normal 0.60-1.20 [facility] Comment on above: Order Comment: No: D o not add to previous draw Performed By: #### 4 1000, 23689, 94853, 95929, 54280 #### [facility] [address] [place] [address], [place] GFR/1.73 sq M predicted among blacks MDRD (S/P/Bld) [Vol rate/Area] mL/min/{1.73_m2} Normal >60 [facility] Comment on above: Order Comment: No: D o not add to previous draw Performed By: #### 4 1000, 00918, 54388, 96592, 56512 #### [facility] [address] [place] [address], [place] GFR/1.73 sq M predicted among non-blacks MDRD (S/P/Bld) [Vol rate/Area] 55 ml/min/1.73sq m Abnormal >60 [facility] Comment on above: Order Comment: No: D o not add to previous draw Performed By: #### 4 1000, 14760, 41888, 66363, 15735 #### [facility] [address] [place] [address], [place] Glucose [Mass/Vol] 128 mg/dL High 70-100 [facility] Comment on above: Order Comment: No: D o not add to previous draw Performed By: #### 4 1000, 21242, 68677, 00418, 13275 #### [facility] [address] [place] [address], [facility] Potassium [Moles/Vol] 4.3 mmol/L Normal 3.5-5.1 [facility] Comment on above: Order Comment: No: D o not add to previous draw Performed By: #### 4 1000, 36287, 97224, 13358, 39803 #### [facility] [address] [place] [address], [place] Sodium [Moles/Vol] 139 mmol/L Normal 136-145 [facility] Comment on above: Order Comment: No: D o not add to previous draw Performed By: #### 4 1000, 87328, 81229, 62689, 56740 #### [facility] [address] [place] [address], [place] Urea nitrogen [Mass/Vol] 29 mg/dL High 7-25 [facility] Comment on above: Order Comment: No: D o not add to previous draw Performed By: #### 4 1000, 49455, 06159, 31931, 18393 #### [facility] [address] [place] [address], [place] CBC COMPLETE BLOOD COUNTon 0 - Erythrocyte distribution width (RBC) [Ratio] 16.7 % High 11.5-15.0 [facility] Comment on above: Order Comment: No: D o not add to previous draw Performed By: #### 4 1000, 75152, 35165, 90464, 47096 #### [facility] [address] [place] [address], [facility] Hematocrit (Bld) [Volume fraction] 47.5 % High 36.0-45.0 [facility] Comment on above: Order Comment: No: D o not add to previous draw Performed By: #### 4 1000, 69926, 94360, 15716, 52748 #### [facility] [address] [place] [address], [facility] Hemoglobin (Bld) [Mass/Vol] 14.3 g/dL Normal 12.0-15.0 [facility] Comment on above: Order Comment: No: D o not add to previous draw Performed By: #### 4 1000, 85944, 29743, 70843, 12832 #### [facility] [address] [facility] [place] [address], [facility] MCH (RBC) [Entitic mass] 26.3 pg Low 27.0-33.0 [facility] Comment on above: Order Comment: No: D o not add to previous draw Performed By: #### 4 1000, 96180, 14592, 48873, 01591 #### [facility] [address] [facility] [place] [id number], [facility] MCHC (RBC) [Mass/Vol] 30.1 g/dL Low 32.0-35.0 [facility] Comment on above: Order Comment: No: D o not add to previous draw Performed By: #### 4 1000, 41589, 37419, 14477, 76400 #### [facility] [address] [place] [address], [facility] MCV (RBC) [Entitic vol] 87.3 fL Normal 82.0-98.0 [facility] Comment on above: Order Comment: No: D o not add to previous draw Performed By: #### 4 1000, 19622, 96114, 03326, 18458 #### [facility] [address] [place] [address], [facility] Nucleated RBC/100 WBC (Bld) [Ratio] 0 % Normal 0-0 [facility] Comment on above: Order Comment: No: D o not add to previous draw Performed By: #### 4 1000, 84089, 74041, 95871, 71533 #### [facility] [address] [place] [address], [facility] PLAT CNT 155 10*3/uL Normal 150-400 [facility] Comment on above: Order Comment: No: D o not add to previous draw Performed By: #### 4 1000, 36121, 12084, 19132, 91571 #### [facility] [address] [place] [address], [facility] RBC (Bld) [#/Vol] 5.44 10*6/uL High 3.80-5.00 [facility] Comment on above: Order Comment: No: D o not add to previous draw Performed By: #### 4 1000, 18105, 53901, 25786, 75925 #### [facility] [address] [place] [address], [facility] WBC (Bld) [#/Vol] 12.29 10*3/uL High 4.00-10.60 [facility] Comment on above: Order Comment: No: D o not add to previous draw Performed By: #### 4 1000, 57574, 48324, 85758, 60141 #### [facility] [address] [facility] [place] [address], [facility] MAGNESIUM BLOODon 12-15-2018 Magnesium [Mass/Vol] 1.9 mg/dL Normal 1.9-2.7 [facility] Comment on above: Order Comment: No: D o not add to previous draw Performed By: #### 4 1000, 43705, 84200, 06835, 38246 #### [facility] [address] [place] [address], [place] POC GLUCOSE LABon 12-15-2018 Glucose [Mass/Vol] 213 mg/dL High 70-100 [facility] Comment on above: Performed By: #### 4 1000, 84078, 45180, 43299, 47626 #### [facility] [address] [place] [address], [place] Glucose [Mass/Vol] 233 mg/dL High 70-100 [facility] Comment on above: Performed By: #### 4 1000, 24582, 21192, 96408, 14116 #### [facility] [address] [place] [address], [place] Glucose [Mass/Vol] 162 mg/dL High 70-100 [facility] Comment on above: Performed By: #### 4 1000, 53212, 09066, 87944, 70189 #### [facility] [address] [place] [address], [place] Glucose [Mass/Vol] 124 mg/dL High 70-100 [facility] Comment on above: Performed By: #### 4 1000, 42966, 66831, 64840, 54814 #### [facility] [address] [place] [address], [place] ARTERIAL BLOOD GAS W/COOXon 12-14-2018 BASE EXCESS 7 mmol/L High -2-3 [facility] Comment on above: Order Comment: No: D o not add to previous draw Performed By: #### 4 1000, 32998, 18913, 80139, 48827 #### [facility] [address] [place] [address], [place] COHB 2.6 % High 0.0-1.5 [facility] Comment on above: Order Comment: No: D o not add to previous draw Performed By: #### 4 1000, 10010, 70091, 99193, 16555 #### [facility] [address] [place] [address], [place] DELIVERY SYSTEMS ROOM AIR Normal [facility] Comment on above: Order Comment: No: D o not add to previous draw Performed By: #### 4 1000, 14151, 55819, 20293, 38291 #### [facility] [address] [place] [address], [facility] FIO2 0 % Normal [facility] Comment on above: Order Comment: No: D o not add to previous draw Performed By: #### 4 1000, 77177, 59959, 43700, 23122 #### [facility] [address] [place] [address], [place] HCO3 (Bld) [Moles/Vol] 35 mmol/L Critically high 21-28 [facility] Comment on above: Order Comment: No: D o not add to previous draw Performed By: #### 4 1000, 22895, 73137, 22241, 72903 #### [facility] [address] [place] [address], [facility] METHB 0.6 % Normal 0.0-1.5 [facility] Comment on above: Order Comment: No: D o not add to previous draw Performed By: #### 4 1000, 33150, 63934, 35220, 00201 #### [facility] [address] [place] [address], [place] Oxygen (Bld) [Partial pressure] 44 mm[Hg] Critically low 83-108 [facility] Comment on above: Order Comment: No: D o not add to previous draw Performed By: #### 4 1000, 34215, 33780, 95199, 74821 #### [facility] [address] [place] [address], [place] Oxygen saturation in Blood 81.5 % Critically low 94.0-97.0 [facility] Comment on above: Order Comment: No: D o not add to previous draw Performed By: #### 4 1000, 36928, 26479, 42900, 07769 #### [facility] [address] [place] [address], [place] PCO2 62 mmHg Critically high 35-45 [facility] Comment on above: Order Comment: No: D o not add to previous draw Performed By: #### 4 1000, 07431, 55158, 26357, 50761 #### [facility] [address] [place] [address], [facility] pH (Bld) 7.36 [pH] Normal 7.35-7.45 [facility] Comment on above: Order Comment: No: D o not add to previous draw Performed By: #### 4 1000, 20568, 32940, 55742, 02474 #### [facility] [address] [place] [address], [facility] THB 15.3 g/dL Normal 12.0-16.3 [facility] Comment on above: Order Comment: No: D o not add to previous draw Performed By: #### 4 1000, 29681, 51788, 25740, 67440 #### [facility] [address] [place] [address], [facility] BASIC METABOLIC PANELon 08-0 6-2019 Calcium [Mass/Vol] 9.2 mg/dL Normal 8.6-10.3 [facility] Comment on above: Order Comment: No: D o not add to previous draw Performed By: #### 4 1000, 28685, 70908, 57643, 59664 #### [facility] [address] [place] [address], [facility] Chloride [Moles/Vol] 99 mmol/L Normal 98-107 [facility] Comment on above: Order Comment: No: D o not add to previous draw Performed By: #### 4 1000, 27049, 12610, 68398, 63832 #### [facility] [address] [place] [id number], [facility] CO2 [Moles/Vol] 32 mmol/L High 21-31 [facility] Comment on above: Order Comment: No: D o not add to previous draw Performed By: #### 4 1000, 38647, 80192, 18495, 02191 #### [facility] [address] [place] [address], [place] Creatinine [Mass/Vol] 1.16 mg/dL Normal 0.60-1.20 [facility] Comment on above: Order Comment: No: D o not add to previous draw Performed By: #### 4 1000, 93495, 19925, 37131, 24782 #### [facility] [address] [place] [address], [place] GFR/1.73 sq M predicted among blacks MDRD (S/P/Bld) [Vol rate/Area] 58 ml/min/1.73sq m Abnormal >60 [facility] Comment on above: Order Comment: No: D o not add to previous draw Performed By: #### 4 1000, 89974, 99954, 59630, 19202 #### [facility] [address] [place] [address], [place] GFR/1.73 sq M predicted among non-blacks MDRD (S/P/Bld) [Vol rate/Area] 47 ml/min/1.73sq m Abnormal >60 [facility] Comment on above: Order Comment: No: D o not add to previous draw Performed By: #### 4 1000, 19612, 06230, 53896, 59353 #### [facility] [address] [place] [address], [place] Glucose [Mass/Vol] 125 mg/dL High 70-100 [facility] Comment on above: Order Comment: No: D o not add to previous draw Performed By: #### 4 1000, 44534, 40450, 28059, 07226 #### [facility] [address] [place] [address], [place] Potassium [Moles/Vol] 4.2 mmol/L Normal 3.5-5.1 [facility] Comment on above: Order Comment: No: D o not add to previous draw Performed By: #### 4 1000, 16163, 16852, 53384, 87995 #### [facility] [address] [place] [address], [facility] Sodium [Moles/Vol] 138 mmol/L Normal 136-145 [facility] Comment on above: Order Comment: No: D o not add to previous draw Performed By: #### 4 1000, 58868, 44153, 71124, 34204 #### [facility] [address] [place] [address], [facility] Urea nitrogen [Mass/Vol] 30 mg/dL High 7-25 [facility] Comment on above: Order Comment: No: D o not add to previous draw Performed By: #### 4 1000, 49073, 49755, 26701, 59776 #### [facility] [address] [place] [address], [facility] CBC COMPLETE BLOOD COUNTon 0 12-14-2018 Erythrocyte distribution width (RBC) [Ratio] 17.0 % High 11.5-15.0 [facility] Comment on above: Order Comment: No: D o not add to previous draw Performed By: #### 4 1000, 54556, 43173, 29463, 00276 #### [facility] [address] [place] [address], [facility] Hematocrit (Bld) [Volume fraction] 49.8 % High 36.0-45.0 [facility] Comment on above: Order Comment: No: D o not add to previous draw Performed By: #### 4 1000, 88857, 35217, 44503, 05984 #### [facility] [address] [place] [address], [place] Hemoglobin (Bld) [Mass/Vol] 15.0 g/dL Normal 12.0-15.0 [facility] Comment on above: Order Comment: No: D o not add to previous draw Performed By: #### 4 1000, 47709, 41706, 85738, 18552 #### [facility] [address] [place] [address], [facility] MCH (RBC) [Entitic mass] 26.3 pg Low 27.0-33.0 [facility] Comment on above: Order Comment: No: D o not add to previous draw Performed By: #### 4 1000, 06550, 47478, 80809, 72671 #### [facility] [address] MCHC (RBC) [Mass/Vol] 30.1 g/dL Low 32.0-35.0 [facility] Comment on above: Order Comment: No: D o not add to previous draw Performed By: #### 4 1000, 50504, 78305, 83840, 09018 #### [facility] [address] MCV (RBC) [Entitic vol] 87.4 fL Normal 82.0-98.0 [facility] Comment on above: Order Comment: No: D o not add to previous draw Performed By: #### 4 1000, 38728, 07199, 55424, 78868 #### [facility] [address] [facility] Nucleated RBC/100 WBC (Bld) [Ratio] 0 % Normal 0-0 [facility] Comment on above: Order Comment: No: D o not add to previous draw Performed By: #### 4 1000, 43368, 78912, 16516, 69729 #### [facility] [address] [facility] [place] [address], [facility] PLAT CNT 152 10*3/uL Normal 150-400 [facility] Comment on above: Order Comment: No: D o not add to previous draw Performed By: #### 4 1000, 25368, 55872, 38293, 92205 #### [facility] [address] [facility] [place] [address], [facility] RBC (Bld) [#/Vol] 5.70 10*6/uL High 3.80-5.00 [facility] Comment on above: Order Comment: No: D o not add to previous draw Performed By: #### 4 1000, 29603, 77902, 56195, 72009 #### [facility] [address] [facility] WBC (Bld) [#/Vol] 14.77 10*3/uL High 4.00-10.60 [facility] Comment on above: Order Comment: No: D o not add to previous draw Performed By: #### 4 1000, 35317, 89409, 55525, 07898 #### [facility] [address] Cardiovascular Lab Reporton 12-14-2018 Cardiovascular Lab Report [facility] Patient Name: Samir [facility] Jimbo Orozco MR #: [id number] Department of Physician: Dakota Mullins M.D. Division of Service Date: 12/13/2018 Cardiology Birthdate: 1955 Adult Cardiovascular Room #: 3AB [id number] [place] [address] Cardiovascular Laboratory Report INDICATION: Samreen Dawson is a 62-year-old woman with complex medical history including coronary artery disease status post stenting of the circumflex in the past, moderate aortic stenosis, and hypertrophic cardiomyopathy, status post alcohol septal ablation in the past as well as dual-chamber ICD placement. She was lost to follow up for about 1-2 years and presented to the hospital after sustaining chest discomfort and syncopal episode. She was referred for cardiac catheterization. Her echocardiogram showed progression of her aortic stenosis to severe. PROCEDURE: 1. Bilateral selective coronary angiography. 2. Right heart catheterization. 3. Left heart catheterization. 4. Aortic valve study. 5. Limited right femoral angiography. METHOD: The procedure was explained to the patient with risks and benefits. She signed informed consent. She was brought to labor and delivery registered nurse in a fasting state. The right groin area was prepped and draped in usual fashion. Using micropuncture technique, the right common femoral artery was accessed. The inner cannula was advanced. Limited right femoral angiography was performed followed by upsizing to a 6-Nicaraguan x 11 cm sheath. Access was obtained using the same technique in the right common femoral vein and a 6-Nicaraguan x 11 cm sheath was placed. A 6-Nicaraguan Patel catheter was used for right heart catheterization with measurement of pressures and calculation of cardiac output using the estimated Anusha method. Patel catheter was removed. Bilateral selective coronary angiography was then performed using 6-Nicaraguan JL4 and JR4 diagnostic catheters. Heparin was administered intravenously. Using the JR4 diagnostic catheter, a straight Glidewire was advanced across the aortic valve and the catheter was used to advance a dual-lumen Dwight pigtail catheter over an exchange length wire. Left heart catheterization was performed with measurement of pressures. Aortic valve study was performed. Pullback across the aortic valve was performed with measurement of pressures. The catheter was removed. Procedure was concluded. The patient tolerated the procedure well. She was moved to the cardiovascular recovery area. The access sheath will be removed and manual compression applied for hemostasis when the ACT is subtherapeutic, she will then be transferred back to her room. TOTAL FLUORO TIME: 15.45 minutes. TOTAL AIR KERMA: 2083 mGy. TOTAL CONTRAST VOLUME: 50 mL. HEMODYNAMICS: RA 13, RV 58/10, 14. PA 57/21, mean 38. Pulmonary capillary wedge pressure 27. AO 105/60, pulse 78, LV 201/15, 31. Cardiac output 5.37, cardiac index 2.46, PA sat 58%, AO sat 83%. Mean aortic valve gradient 73 mmHg, calculated aortic valve area 0.53 sqcm. Post premature ventricular contraction: There was no evidence of dynamic left ventricular outflow tract gradient with a negative Brockenbrough sign. CORONARY ANGIOGRAPHY: 1. This is a right dominant circulation. 2. Left main: This arises from the left coronary cusp. It trifurcates into left anterior descending, ramus, and circumflex vessels. Left main is free of disease. 3. Left anterior descending. This has mild disease. 4. Ramus vessel: This has 50% proximal stenosis. It is a moderate-sized vessel. 5. Circumflex vessel: It is large and nondominant, and has a previously placed stent in the proximal to mid segment. The stent is patent. The rest of the circumflex and branches are free of disease. 6. Right coronary artery. This arises from the right coronary cusp. It is a large and dominant vessel. It has a 50% mid segment stenosis, but no obstructive lesions. Limited right femoral angiography. This showed access to be in the right common femoral artery with no obstructive lesions noted in the femoral artery and its proximal branches. SUMMARY OF FINDINGS: 1. Mild nonobstructive 3-vessel coronary artery disease. 2. Patent previously placed circumflex stent. 3. 50% mid RCA stenosis. 4. 50% proximal ramus stenosis. 5. Mild disease in the LAD. 6. Moderate to severe pulmonary hypertension. 7. Severely elevated left filling pressures. 8. Severe aortic valve stenosis. 9. No evidence of LV outflow tract obstruction. 10. Low normal cardiac output and cardiac index. RECOMMENDATIONS: 1. Medical therapy for coronary artery disease. 2. The patient will be reviewed with CT Surgical service for aortic valve replacement. 3. Further recommendations per inpatient Cardiology service. Electronically Signed by: Dakota Mullins M.D. 01/07/2019 01:35 A Dakota Mullins M.D. Date Dict: 12/13/2018/02:30 P/Dakota Mullins M.D. Date Trans: 12/14/2018 05:37 A/liberty [id number] Normal [facility] POC GLUCOSE LABon 12-14-2018 Glucose [Mass/Vol] 219 mg/dL High 70-100 [facility] Comment on above: Performed By: #### 4 1000, 92010, 28114, 28495, 13350 #### [facility] [address] [facility] [place] [address], [place] Glucose [Mass/Vol] 170 mg/dL High 70-100 [facility] Comment on above: Performed By: #### 4 1000, 15968, 65774, 42696, 02962 #### [facility] [address] [place] [address], [place] Glucose [Mass/Vol] 191 mg/dL High 70-100 [facility] Comment on above: Performed By: #### 4 1000, 40634, 96589, 38039, 14901 #### [facility] [address] [place] [address], [place] Glucose [Mass/Vol] 117 mg/dL High 70-100 [facility] Comment on above: Performed By: #### 4 1000, 36973, 70223, 85871, 01246 #### [facility] [address] [place] [address], [place] BASIC METABOLIC PANELon 08-0 Calcium [Mass/Vol] 9.4 mg/dL Normal 8.6-10.3 [facility] Comment on above: Order Comment: No: D o not add to previous draw Performed By: #### 4 1000, 25906, 32816, 83644, 73336 #### [facility] [address] [place] [address], [place] Chloride [Moles/Vol] 98 mmol/L Normal 98-107 [facility] Comment on above: Order Comment: No: D o not add to previous draw Performed By: #### 4 1000, 53687, 51716, 61173, 12849 #### [facility] [address] [place] [address], [facility] CO2 [Moles/Vol] 32 mmol/L High 21-31 [facility] Comment on above: Order Comment: No: D o not add to previous draw Performed By: #### 4 1000, 24602, 85892, 14456, 77205 #### [facility] [address] [place] [address], [place] Creatinine [Mass/Vol] 1.10 mg/dL Normal 0.60-1.20 [facility] Comment on above: Order Comment: No: D o not add to previous draw Performed By: #### 4 1000, 75867, 60384, 15279, 70368 #### [facility] [address] [place] [address], [place] GFR/1.73 sq M predicted among blacks MDRD (S/P/Bld) [Vol rate/Area] mL/min/{1.73_m2} Normal >60 [facility] Comment on above: Order Comment: No: D o not add to previous draw Performed By: #### 4 1000, 16473, 61295, 49072, 67675 #### [facility] [address] [place] [address], [place] GFR/1.73 sq M predicted among non-blacks MDRD (S/P/Bld) [Vol rate/Area] 50 ml/min/1.73sq m Abnormal >60 [facility] Comment on above: Order Comment: No: D o not add to previous draw Performed By: #### 4 1000, 34538, 64732, 16070, 63397 #### [facility] [address] [place] [address], [place] Glucose [Mass/Vol] 157 mg/dL High 70-100 [facility] Comment on above: Order Comment: No: D o not add to previous draw Performed By: #### 4 1000, 01333, 12149, 62619, 97771 #### [facility] [address] [place] [address], [place] Potassium [Moles/Vol] 3.8 mmol/L Normal 3.5-5.1 [facility] Comment on above: Order Comment: No: D o not add to previous draw Performed By: #### 4 1000, 04615, 56944, 25150, 99149 #### [facility] [address] [place] [address], [place] Sodium [Moles/Vol] 138 mmol/L Normal 136-145 [facility] Comment on above: Order Comment: No: D o not add to previous draw Performed By: #### 4 1000, 22561, 22866, 64062, 43641 #### [facility] [address] [place] [address], [place] Urea nitrogen [Mass/Vol] 30 mg/dL High 7-25 [facility] Comment on above: Order Comment: No: D o not add to previous draw Performed By: #### 4 1000, 35056, 84889, 12048, 34538 #### [facility] [address] [place] [address], [facility] CBC W/DIFFon 12-13-2018 ABS BASOPHILS 0.1 10*3/uL Normal 0.0-0.2 [facility] Comment on above: Order Comment: No: D o not add to previous draw Performed By: #### 5 6101 #### [facility] [address] [facility] [address], [facility] ABS IMM GRANS 0.2 10*3/uL Normal 0.0-0.2 [facility] Comment on above: Order Comment: No: D o not add to previous draw Performed By: #### 5 6101 #### [facility] [address] [place] [address], [facility] ABS NEUTROPHILS 8.9 10*3/uL High 1.6-7.6 [facility] Comment on above: Order Comment: No: D o not add to previous draw Performed By: #### 5 6101 #### [facility] [address] [place] [address], [facility] Basophils/100 WBC (Bld) 0.4 % Normal 0.0-1.0 [facility] Comment on above: Order Comment: No: D o not add to previous draw Performed By: #### 5 6101 #### [facility] [facility] [address] [facility] [address], [facility] Eosinophils (Bld) [#/Vol] 0.0 10*3/uL Normal 0.0-0.5 [facility] Comment on above: Order Comment: No: D o not add to previous draw Performed By: #### 5 6101 #### [facility] [address] [place] [address], [facility] Eosinophils/100 WBC (Bld) 0.2 % Normal 0.0-6.0 [facility] Comment on above: Order Comment: No: D o not add to previous draw Performed By: #### 5 6101 #### [facility] [address] [place] [address], [facility] Erythrocyte distribution width (RBC) [Ratio] 17.2 % High 11.5-15.0 [facility] Comment on above: Order Comment: No: D o not add to previous draw Performed By: #### 5 6101 #### [facility] [address] [place] [address], [facility] Hematocrit (Bld) [Volume fraction] 52.6 % High 36.0-45.0 [facility] Comment on above: Order Comment: No: D o not add to previous draw Performed By: #### 5 6101 #### [facility] [address] [place] [address], [facility] Hemoglobin (Bld) [Mass/Vol] 15.9 g/dL High 12.0-15.0 [facility] Comment on above: Order Comment: No: D o not add to previous draw Performed By: #### 5 6101 #### [facility] [address] [facility] [place] [address], [facility] IMMATURE GRANS 1.2 % High 0.0-1.0 [facility] Comment on above: Order Comment: No: D o not add to previous draw Performed By: #### 5 6101 #### [facility] [address] [facility] [place] [address], [facility] Lymphocytes (Bld) [#/Vol] 2.5 10*3/uL Normal 1.2-4.0 [facility] Comment on above: Order Comment: No: D o not add to previous draw Performed By: #### 5 6101 #### [facility] [address] [place] [address], [facility] Lymphocytes/100 WBC (Bld) 19.6 % Low 20.0-45.0 [facility] Comment on above: Order Comment: No: D o not add to previous draw Performed By: #### 5 6101 #### [facility] [address] [place] [address], [facility] MCH (RBC) [Entitic mass] 26.7 pg Low 27.0-33.0 [facility] Comment on above: Order Comment: No: D o not add to previous draw Performed By: #### 5 6101 #### [facility] [address] [place] [address], [facility] MCHC (RBC) [Mass/Vol] 30.2 g/dL Low 32.0-35.0 [facility] Comment on above: Order Comment: No: D o not add to previous draw Performed By: #### 5 6101 #### [facility] [address] [place] [address], [facility] MCV (RBC) [Entitic vol] 88.3 fL Normal 82.0-98.0 [facility] Comment on above: Order Comment: No: D o not add to previous draw Performed By: #### 5 6101 #### [facility] [address] [facility] [place] [address], [facility] Monocytes (Bld) [#/Vol] 1.2 10*3/uL High 0.1-1.0 [facility] Comment on above: Order Comment: No: D o not add to previous draw Performed By: #### 5 6101 #### [facility] [address] [facility] [place] [address], [facility] MONOS 9.6 % Normal 5.0-12.0 [facility] Comment on above: Order Comment: No: D o not add to previous draw Performed By: #### 5 6101 #### [facility] [address] [place] [address], [facility] Neutrophils/100 WBC (Bld) 69.0 % Normal 40.0-72.0 [facility] Comment on above: Order Comment: No: D o not add to previous draw Performed By: #### 5 6101 #### [facility] [address] [place] [address], [facility] Nucleated RBC/100 WBC (Bld) [Ratio] 0 % Normal 0-0 [facility] Comment on above: Order Comment: No: D o not add to previous draw Performed By: #### 5 6101 #### [facility] [address] [place] [address], [facility] PLAT CNT 180 10*3/uL Normal 150-400 [facility] Comment on above: Order Comment: No: D o not add to previous draw Performed By: #### 5 6101 #### [facility] [address] [place] [address], [facility] RBC (Bld) [#/Vol] 5.96 10*6/uL High 3.80-5.00 [facility] Comment on above: Order Comment: No: D o not add to previous draw Performed By: #### 5 6101 #### [facility] [address] [place] [address], [facility] WBC (Bld) [#/Vol] 12.87 10*3/uL High 4.00-10.60 [facility] Comment on above: Order Comment: No: D o not add to previous draw Performed By: #### 5 6101 #### [facility] [address] [facility] [place] [address], [facility] LIPID PROFILEon 12-13-2018 Cholesterol [Mass/Vol] 221 mg/dL High 120-200 [facility] Comment on above: Order Comment: No: D o not add to previous draw Result Comment: CHOL ESTEROL REFERENCE RANGE: 20 YEARS AND OLDER CARDIOVASCULAR RISK Less than 200 mg/dl Low Risk 200 to 239 mg/dl Borderline Risk 240 mg/dl and greater High Risk Performed By: #### 5 6101 #### [facility] [address] [place] [address], [facility] Cholesterol in HDL [Mass/Vol] 27 mg/dL Normal 23-92 [facility] Comment on above: Order Comment: No: D o not add to previous draw Result Comment: Slig ht variation in normal range could be due to gender and/or age. HDL CHOLESTEROL REFERENCE RANGE: 20 years and older Cardiovascular Risk > or =60 mg/dL Desirable 40 TO 59 mg/dL Low Risk <40 mg/dL High Risk Performed By: #### 5 6101 #### [facility] [address] [place] [address], [facility] Cholesterol in LDL [Mass/Vol] 149 mg/dL High 0-130 [facility] Comment on above: Order Comment: No: D o not add to previous draw Result Comment: LDL IS A CALCULATION LDL IS ONLY VALID IF THE TRIG IS LESS THAN 400. Performed By: #### 5 6101 #### [facility] [address] [place] [address], [facility] Cholesterol.total/Cho lesterol in HDL [Mass ratio] 8.2 {ratio} High 0.0-4.5 [facility] Comment on above: Order Comment: No: D o not add to previous draw Performed By: #### 5 6101 #### [facility] [address] [place] [address], [facility] NON-HDL CHOLESTEROL 194 mg/dL Normal [facility] Comment on above: Order Comment: No: D o not add to previous draw Performed By: #### 5 6101 #### [facility] [address] [place] [address], [facility] Triglyceride [Mass/Vol] 226 mg/dL High 40-149 [facility] Comment on above: Order Comment: No: D o not add to previous draw Result Comment: TRIG LYCERIDE REFERENCE RANGE: 20 YEARS AND OLDER CARDIOVASCULAR RISK LESS THAN 150 mg/dl LOW RISK 150 TO 199 mg/dl BORDERLINE RISK 200 mg/dl AND GREATER HIGH RISK Performed By: #### 5 6101 #### [facility] [address] [place] [address], [place] VLDL CHOL 45 mg/dL High 0-40 [facility] Comment on above: Order Comment: No: D o not add to previous draw Performed By: #### 5 6101 #### [facility] [address] [place] [address], [place] MAGNESIUM BLOODon 12-13-2018 Magnesium [Mass/Vol] 1.9 mg/dL Normal 1.9-2.7 [facility] Comment on above: Performed By: #### 4 1000, 75092, 81395, 98540, 76310 #### [facility] [address] [place] [address], [place] POC GLUCOSE LABon 12-13-2018 Glucose [Mass/Vol] 177 mg/dL High 70-100 [facility] Comment on above: Performed By: #### 4 1000, 39417, 80715, 32660, 50091 #### [facility] [address] [place] [address], [place] Glucose [Mass/Vol] 162 mg/dL High 70-100 [facility] Comment on above: Performed By: #### 4 1000, 80520, 52750, 88591, 93901 #### [facility] [address] [place] [address], [place] Glucose [Mass/Vol] 155 mg/dL High 70-100 [facility] Comment on above: Performed By: #### 4 1000, 40698, 24809, 38594, 69604 #### [facility] [address] [place] [address], [place] Glucose [Mass/Vol] 142 mg/dL High 70-100 [facility] Comment on above: Performed By: #### 4 1000, 77438, 06359, 45004, 63695 #### [facility] [address] [place] [address], [place] TROPONIN-Ion 12-13-2018 Troponin I.cardiac [Mass/Vol] 0.10 ng/mL High 0.00-0.04 [facility] Comment on above: Order Comment: No: D o not add to previous draw Result Comment: REFE RENCE RANGES: 0.00 - 0.04 ng/ml NORMAL 0.05 - 0.50 ng/ml INDETERMINATE > 0.50 ng/ml CONSISTENT WITH AN M.I. Performed By: #### 4 1000, 39975, 45128, 78067, 69594 #### [facility] [address] [place] [address], [facility] Troponin I.cardiac [Mass/Vol] 0.10 ng/mL High 0.00-0.04 [facility] Comment on above: Result Comment: REFE RENCE RANGES: 0.00 - 0.04 ng/ml NORMAL 0.05 - 0.50 ng/ml INDETERMINATE > 0.50 ng/ml CONSISTENT WITH AN M.I. Performed By: #### 5 6101 #### [facility] [address] [place] [address], [facility] Troponin I.cardiac [Mass/Vol] 0.11 ng/mL Critically high 0.00-0.04 [facility] Comment on above: Order Comment: No: D o not add to previous draw Result Comment: M-MS EVIOUS CRITICAL RESULT REFERENCE RANGES: 0.00 - 0.04 ng/ml NORMAL 0.05 - 0.50 ng/ml INDETERMINATE > 0.50 ng/ml CONSISTENT WITH AN M.I. Performed By: #### 5 6101 #### [facility] [address] [facility] [address] UFH HEPARIN ASSAYon 12-14-19 19 UNFRACTIONATED HEPARIN 0.11 IU/mL Critically low 0.30-0.70 [facility] Comment on above: Result Comment: Mcclure roxaban and Apixaban will interfere with the anti Xa assay used to monitor UFH and LMWH. RESULTS CHECKED AND CALLED. ACCURATELY READ BACK BY TERESA MCGEE RN @ 9582 Performed By: #### 4 1000, 36018, 32741, 25267, 98464 #### [facility] [address] [place] [address], [facility] UNFRACTIONATED HEPARIN <0.10 Critically low 0.30-0.70 [facility] Comment on above: Result Comment: Mcclure roxaban and Apixaban will interfere with the anti Xa assay used to monitor UFH and LMWH. RESULTS CHECKED AND CALLED. ACCURATELY READ BACK BY SAM BRUMFIELD RN @ 0330 on 12-13-18 Performed By: #### 5 6101 #### [facility] [address] [place] [address], [facility] ARTERIAL BLOOD GAS W/COOXon 12-12-2018 BASE EXCESS 9 mmol/L High -2-3 [facility] Comment on above: Order Comment: RESUL TS CHECKED AND CALLED. ACCURATELY READ BACK BY TO ESTELLA MCGEE Performed By: #### 4 0055 #### [facility] [address] [place] [address], [facility] COHB 2.9 % High 0.0-1.5 [facility] Comment on above: Order Comment: RESUL TS CHECKED AND CALLED. ACCURATELY READ BACK BY TO ESTELLA MCGEE Performed By: #### 4 0055 #### [facility] [address] [place] [address], [facility] DELIVERY SYSTEMS NC Normal [facility] Comment on above: Order Comment: RESUL TS CHECKED AND CALLED. ACCURATELY READ BACK BY TO ESTELLA MCGEE Performed By: #### 4 0055 #### [facility] [address] [place] [address], [facility] HCO3 (Bld) [Moles/Vol] 36 mmol/L Critically high 21-28 [facility] Comment on above: Order Comment: RESUL TS CHECKED AND CALLED. ACCURATELY READ BACK BY TO ESTELLA MCGEE Performed By: #### 4 0055 #### [facility] [address] [place] [address], [facility] LPM 2.0 LPM Normal [facility] Comment on above: Order Comment: RESUL TS CHECKED AND CALLED. ACCURATELY READ BACK BY TO ESTELLA MCGEE Performed By: #### 4 0055 #### [facility] [address] [place] [address], [facility] METHB 0.8 % Normal 0.0-1.5 [facility] Comment on above: Order Comment: RESUL TS CHECKED AND CALLED. ACCURATELY READ BACK BY TO ESTELLA MCGEE Performed By: #### 4 0055 #### [facility] [address] [place] [address], [facility] MODALITY NC Normal [facility] Comment on above: Order Comment: RESUL TS CHECKED AND CALLED. ACCURATELY READ BACK BY TO ESTELLA MCGEE Performed By: #### 4 0055 #### [facility] [address] [place] [address], [facility] Oxygen (Bld) [Partial pressure] 68 mm[Hg] Low 83-108 [facility] Comment on above: Order Comment: RESUL TS CHECKED AND CALLED. ACCURATELY READ BACK BY TO ESTELLA MCGEE Performed By: #### 4 0055 #### [facility] [address] [place] [address], [facility] Oxygen saturation in Blood 91.6 % Low 94.0-97.0 [facility] Comment on above: Order Comment: RESUL TS CHECKED AND CALLED. ACCURATELY READ BACK BY TO ESTELLA MCGEE Performed By: #### 4 0055 #### [facility] [address] [place] [address], [facility] PCO2 56 mmHg Critically high 35-45 [facility] Comment on above: Order Comment: RESUL TS CHECKED AND CALLED. ACCURATELY READ BACK BY TO ESTELLA MCGEE Performed By: #### 4 0055 #### [facility] [address] [place] [address], [facility] pH (Bld) 7.41 [pH] Normal 7.35-7.45 [facility] Comment on above: Order Comment: RESUL TS CHECKED AND CALLED. ACCURATELY READ BACK BY TO ESTELLA MCGEE Performed By: #### 4 0055 #### [facility] [address] [place] [address], [facility] THB 16.4 g/dL High 12.0-16.3 [facility] Comment on above: Order Comment: RESUL TS CHECKED AND CALLED. ACCURATELY READ BACK BY TO ESTELLA MCGEE Performed By: #### 4 0055 #### [facility] [address] [place] [address], [facility] BASIC METABOLIC PANELon 08-0 Calcium [Mass/Vol] 9.5 mg/dL Normal 8.6-10.3 [facility] Comment on above: Order Comment: No: D o not add to previous draw Performed By: #### 4 1000, 47129, 67172, 18941, 55297 #### [facility] [address] [place] [address], [facility] Chloride [Moles/Vol] 96 mmol/L Low 98-107 [facility] Comment on above: Order Comment: No: D o not add to previous draw Performed By: #### 4 1000, 91065, 94719, 93903, 14722 #### [facility] [address] [place] [address], [place] CO2 [Moles/Vol] 34 mmol/L High 21-31 [facility] Comment on above: Order Comment: No: D o not add to previous draw Performed By: #### 4 1000, 99954, 07593, 94595, 18344 #### [facility] [address] [place] [address], [facility] Creatinine [Mass/Vol] 1.13 mg/dL Normal 0.60-1.20 [facility] Comment on above: Order Comment: No: D o not add to previous draw Performed By: #### 4 1000, 43824, 92312, 34061, 13585 #### [facility] [address] [place] [id number], [facility] GFR/1.73 sq M predicted among blacks MDRD (S/P/Bld) [Vol rate/Area] 59 ml/min/1.73sq m Abnormal >60 [facility] Comment on above: Order Comment: No: D o not add to previous draw Performed By: #### 4 1000, 14641, 42382, 92316, 42184 #### [facility] [address] [place] [address], [facility] GFR/1.73 sq M predicted among non-blacks MDRD (S/P/Bld) [Vol rate/Area] 49 ml/min/1.73sq m Abnormal >60 [facility] Comment on above: Order Comment: No: D o not add to previous draw Performed By: #### 4 1000, 42534, 29690, 81263, 83540 #### [facility] [address] [place] [address], [facility] Glucose [Mass/Vol] 217 mg/dL High 70-100 [facility] Comment on above: Order Comment: No: D o not add to previous draw Performed By: #### 4 1000, 83016, 44472, 64574, 02554 #### [facility] [address] [place] [address], [place] Potassium [Moles/Vol] 3.7 mmol/L Normal 3.5-5.1 [facility] Comment on above: Order Comment: No: D o not add to previous draw Performed By: #### 4 1000, 90185, 16664, 13764, 05237 #### [facility] [address] [place] [address], [place] Sodium [Moles/Vol] 140 mmol/L Normal 136-145 [facility] Comment on above: Order Comment: No: D o not add to previous draw Performed By: #### 4 1000, 52218, 35017, 98262, 30467 #### [facility] [address] [place] [address], [place] Urea nitrogen [Mass/Vol] 26 mg/dL High 7-25 [facility] Comment on above: Order Comment: No: D o not add to previous draw Performed By: #### 4 1000, 34493, 69352, 62040, 77585 #### [facility] [address] BNP (B-TYPE NATRIURETIC PEPT QIAN)on 12-12-2018 Natriuretic peptide B (Bld) [Mass/Vol] 902 pg/mL High 0-100 [facility] Comment on above: Order Comment: Yes: Add to Previous draw if able Result Comment: Give n the appropriate clinical setting a BNP result of >100 pg/mL indicates congestive heart failure. Performed By: #### 8 5123 #### [facility] [address] [place] [address], [facility] CBC W/DIFFon 12-12-2018 ABS BASOPHILS 0.1 10*3/uL Normal 0.0-0.2 [facility] Comment on above: Performed By: #### 5 0103 #### [facility] [address] ABS IMM GRANS 0.2 10*3/uL Normal 0.0-0.2 [facility] Comment on above: Performed By: #### 5 0103 #### [facility] [address] [place] [address], [facility] ABS NEUTROPHILS 8.8 10*3/uL High 1.6-7.6 [facility] Comment on above: Performed By: #### 5 0103 #### [facility] [address] [place] [address], [facility] Basophils/100 WBC (Bld) 0.5 % Normal 0.0-1.0 [facility] Comment on above: Performed By: #### 5 0103 #### [facility] [address] [place] [address], [facility] Eosinophils (Bld) [#/Vol] 0.0 10*3/uL Normal 0.0-0.5 [facility] Comment on above: Performed By: #### 5 0103 #### [facility] [address] [place] [address], [facility] Eosinophils/100 WBC (Bld) 0.0 % Normal 0.0-6.0 [facility] Comment on above: Performed By: #### 5 0103 #### [facility] [address] [facility] Erythrocyte distribution width (RBC) [Ratio] 17.7 % High 11.5-15.0 [facility] Comment on above: Performed By: #### 5 0103 #### [facility] [address] [facility] Hematocrit (Bld) [Volume fraction] 53.1 % High 36.0-45.0 [facility] Comment on above: Performed By: #### 5 0103 #### [facility] [address] Hemoglobin (Bld) [Mass/Vol] 16.2 g/dL High 12.0-15.0 [facility] Comment on above: Performed By: #### 5 0103 #### [facility] [address] IMMATURE GRANS 2.4 % High 0.0-1.0 [facility] Comment on above: Performed By: #### 5 0103 #### [facility] [address] [facility] Lymphocytes (Bld) [#/Vol] 0.8 10*3/uL Low 1.2-4.0 [facility] Comment on above: Performed By: #### 5 0103 #### [facility] [address] [place] [address], [facility] Lymphocytes/100 WBC (Bld) 8.3 % Low 20.0-45.0 [facility] Comment on above: Performed By: #### 5 3 #### [facility] [address] [facility] [place] [address], [facility] MCH (RBC) [Entitic mass] 26.4 pg Low 27.0-33.0 [facility] Comment on above: Performed By: #### 5 0103 #### [facility] [address] MCHC (RBC) [Mass/Vol] 30.5 g/dL Low 32.0-35.0 [facility] Comment on above: Performed By: #### 3 #### [facility] [address] MCV (RBC) [Entitic vol] 86.5 fL Normal 82.0-98.0 [facility] Comment on above: Performed By: #### 5 102 #### [facility] [address] Monocytes (Bld) [#/Vol] 0.2 10*3/uL Normal 0.1-1.0 [facility] Comment on above: Performed By: #### 5 102 #### [facility] [address] MONOS 1.7 % Low 5.0-12.0 [facility] Comment on above: Performed By: #### 5 102 #### [facility] [address] Neutrophils/100 WBC (Bld) 87.1 % High 40.0-72.0 [facility] Comment on above: Performed By: #### 102 #### [facility] [address] [place] [address], [facility] Nucleated RBC/100 WBC (Bld) [Ratio] 0 % Normal 0-0 [facility] Comment on above: Performed By: #### 5 102 #### [facility] [address] [place] [address], [facility] PLAT CNT 170 10*3/uL Normal 150-400 [facility] Comment on above: Performed By: #### 5 0103 #### [facility] [address] [place] [address], [facility] RBC (Bld) [#/Vol] 6.14 10*6/uL High 3.80-5.00 [facility] Comment on above: Performed By: #### 5 0103 #### [facility] [address] [facility] [place] [address], [facility] WBC (Bld) [#/Vol] 10.12 10*3/uL Normal 4.00-10.60 [facility] Comment on above: Performed By: #### 5 0103 #### [facility] [address] [place] [address], [facility] CT CHEST WO CONTRASTon 12-12 CT CHEST WO CONTRAST [facility] Department of Radiology [address] [place] [id number] Patient Name: SAMREEN DAWSON : 1955 Sex: F Age: Race: White Pt. Location: [address] [place] [address] Patient Status: I Ordered Date: 12/12/2018 11:35:00 AM Completed Date: 12/12/2018 12:15 PM Requesting Provider: ODILIA BEARD Attending Provider: BLADIMIR BRUMFIELD Report Copy To: Signs & Symptoms: Shortness of Breath History: See Comments Comments: R/O Infiltrates Exam: CT CHEST WO CONTRAST CT CHEST WO CONTRAST 12/12/2018 12:15 PM EDT SIGN AND SYMPTOMS: Shortness of Breath TECHNOLOGIST COMMENTS: SOB with chest pain x2 days. QUESTIONS PER RADIOLOGIST: R/O Infiltrates PROTOCOL: Axial CT images of the chest were obtained without IV contrast. TECHNIQUE: Multidetector CT axial slices of the chest were obtained without IV contrast. Multiplanar reformats were performed and viewed on a separate workstation and reviewed to further define anatomy and possible pathology.Appropriat e CT dose lowering techniques were utilized. COMPARISON: December 052016 FINDINGS: Lower neck: Thyroid not completely visualized. No supraclavicular adenopathy. Vessels: Within normal limits. Minor atherosclerotic changes in the aorta. Significant coronary artery calcification noted.. Mediastinum and Willem: Willem difficult to assess without contrast. No mediastinal pathologic adenopathy. Largest mediastinal lymph node measures short axis I.3 cm. Faint fatty hilum visible. Heart: The heart is mildly enlarged. Pacer wires are noted. There is mitral and aortic valve calcification. No pericardial effusion. Airways: Within normal limits Lungs: No airspace disease or interstitial abnormality. Minor scarring or atelectasis left lung base. Pleura: Within normal limits. Chest Wall: Within normal limits. Upper Abdomen: Within normal limits. Bones: Degenerative changes dorsal spine. IMPRESSION: Probable underlying coronary artery disease with diffuse coronary artery calcification. Cardiomegaly. Mitral and aortic valve calcification. The lungs are free of infiltrates or effusions. Electronically signed by:Oj Meza. Transcribed by: [email or web address], User Resident: Electronically Signed by: OJ MEZA @ 12/13/2018 07:44 AM Normal [facility] Comment on above: Order Comment: No: D o not add to previous draw HEMOGLOBIN A1Con 12-12-2018 HbA1c (Bld) [Mass fraction] 137 mg/dL High 70-126 [facility] Comment on above: Order Comment: No: D o not add to previous draw Performed By: #### 4 1000, 30441, 85260, 24324, 32728 #### [facility] [address] [place] [address], [facility] HbA1c (Bld) [Mass fraction] 6.4 % High 4.0-6.0 [facility] Comment on above: Order Comment: No: D o not add to previous draw Performed By: #### 4 1000, 29607, 17046, 06275, 17325 #### [facility] [address] [place] [address], [place] LIVER BATTERYon 12-12-2018 Albumin [Mass/Vol] 4.2 g/dL Normal 3.5-5.7 [facility] Comment on above: Order Comment: No: D o not add to previous draw Performed By: #### 4 1000, 63253, 23897, 13894, 97050 #### [facility] [address] [place] [address], [facility] ALKALINE PHOSPH 57 IU/L Normal 34-104 [facility] Comment on above: Order Comment: No: D o not add to previous draw Performed By: #### 4 1000, 35586, 41299, 86446, 45809 #### [facility] [address] [place] [address], [place] ALT [Catalytic activity/Vol] 88 U/L High 7-52 [facility] Comment on above: Order Comment: No: D o not add to previous draw Performed By: #### 4 1000, 97256, 02547, 80238, 10329 #### [facility] [address] [place] [address], [place] AST [Catalytic activity/Vol] 34 U/L Normal 13-39 [facility] Comment on above: Order Comment: No: D o not add to previous draw Performed By: #### 4 1000, 51001, 21974, 26228, 77850 #### [facility] [address] [place] [address], [place] Bilirubin [Mass/Vol] 0.7 mg/dL Normal 0.3-1.0 [facility] Comment on above: Order Comment: No: D o not add to previous draw Performed By: #### 4 1000, 42168, 74201, 16128, 39818 #### [facility] [address] [place] [address], [facility] Bilirubin.direct [Mass/Vol] 0.1 mg/dL Normal 0.0-0.2 [facility] Comment on above: Order Comment: No: D o not add to previous draw Performed By: #### 4 1000, 51564, 53275, 88323, 64296 #### [facility] [address] [place] [address], [facility] Protein [Mass/Vol] 7.5 g/dL Normal 6.0-8.3 [facility] Comment on above: Order Comment: No: D o not add to previous draw Performed By: #### 4 1000, 39596, 32496, 09267, 75242 #### [facility] [address] [place] [address], [facility] MAGNESIUM BLOODon 12-12-2018 Magnesium [Mass/Vol] 1.4 mg/dL Low 1.9-2.7 [facility] Comment on above: Order Comment: No: D o not add to previous draw Performed By: #### 4 1000, 44436, 44029, 98783, 93135 #### [facility] [address] [place] [address], [facility] PHOSPHORUS BLOODon 9 Phosphate [Mass/Vol] 3.0 mg/dL Normal 2.5-5.0 [facility] Comment on above: Order Comment: No: D o not add to previous draw Performed By: #### 4 1000, 55591, 00728, 43982, 68419 #### [facility] [address] [place] [address], [place] POC GLUCOSE LABon 12-12-2018 Glucose [Mass/Vol] 151 mg/dL High 70-100 [facility] Comment on above: Performed By: #### 5 6101 #### [facility] [address] [place] [address], [place] Glucose [Mass/Vol] 191 mg/dL High 70-100 [facility] Comment on above: Performed By: #### 5 6101 #### [facility] [address] [facility] [address] Glucose [Mass/Vol] 193 mg/dL High 70-100 [facility] Comment on above: Performed By: #### 8 5499 #### [facility] [address] [facility] [address] PROTHROMBIN TIMEon 9 INR Coag (PPP) [Relative time] 1.09 {INR} Normal 0.91-1.16 [facility] Comment on above: Order Comment: No: D o not add to previous draw Result Comment: ACCC P RECOMMENDED INR FOR WARFARIN THERAPY -------- ------- CONDITION INR PROPHYLAXIS OF VENOUS THROMBOSIS 2-3 (HIGH-RISK SURGERY) TREATMENT OF VENOUS THROMBOSIS 2-3 TREATMENT OF PULMONARY EMBOLISM 2-3 PREVENTION OF SYSTEMIC EMBOLISM: 2-3 ACUTE MYOCARDIAL INFARCTION TISSUE HEART VALVES VALVULAR HEART DISEASE ATRIAL FIBRILLATION RECURRENT SYSTEMIC EMBOLISM MECHANICAL HEART VALVE 2.5-3.5 FROM: ORAL ANTICOAGULANTS. MECHANISM OF ACTION, CLINICAL EFFECTIVENESS, AND OPTIMAL THERAPEUTIC RANGE. CHEST 1995;108:231S-246S. Performed By: #### 5 6101 #### [facility] [address] [place] [address], [facility] PT Coag (PPP) [Time] 14.1 s Normal 12.3-14.8 [facility] Comment on above: Order Comment: No: D o not add to previous draw Result Comment: ALL RESULTS MUST BE INTERPRETED WITH RESPECT TO BLOOD DRAWING ARTIFACT OR DILUTION ERROR OF ANTICOAGULANT AT THE TIME OF SAMPLING. Performed By: #### 5 6101 #### [facility] [address] [place] [address], [facility] TROPONIN-Ion 12-12-2018 Troponin I.cardiac [Mass/Vol] 0.12 ng/mL Critically high 0.00-0.04 [facility] Comment on above: Order Comment: No: D o not add to previous draw Result Comment: M-CR ITICAL RESULT(S) REVIEWED, CALLED TO AND READ BACK BY SAM BRUMFIELD RN AT 20:02 M-TROPONIN INITIAL CRITICAL HIGH; RESPUN AND RETESTED REFERENCE RANGES: 0.00 - 0.04 ng/ml NORMAL 0.05 - 0.50 ng/ml INDETERMINATE > 0.50 ng/ml CONSISTENT WITH AN M.I. Performed By: #### 5 6101 #### [facility] [address] Troponin I.cardiac [Mass/Vol] 0.09 ng/mL High 0.00-0.04 [facility] Comment on above: Order Comment: No: D o not add to previous draw Result Comment: REFE RENCE RANGES: 0.00 - 0.04 ng/ml NORMAL 0.05 - 0.50 ng/ml INDETERMINATE > 0.50 ng/ml CONSISTENT WITH AN M.I. Performed By: #### 5 6101 #### [facility] [address] Troponin I.cardiac [Mass/Vol] 0.11 ng/mL Critically high 0.00-0.04 [facility] Comment on above: Result Comment: M-CR ITICAL RESULT(S) REVIEWED, CALLED TO AND READ BACK BY REYES MCGEE AT 1233 REFERENCE RANGES: 0.00 - 0.04 ng/ml NORMAL 0.05 - 0.50 ng/ml INDETERMINATE > 0.50 ng/ml CONSISTENT WITH AN M.I. Performed By: #### 4 1000, 85609, 28922, 55783, 44461 #### [facility] [address] UFH HEPARIN ASSAYon 12-13-19 19 UNFRACTIONATED HEPARIN <0.10 Critically low 0.30-0.70 [facility] Comment on above: Result Comment: Mcclure roxaban and Apixaban will interfere with the anti Xa assay used to monitor UFH and LMWH. RESULTS CHECKED AND CALLED. ACCURATELY READ BACK BY ART BRUMFIELD RN AT 2002 Performed By: #### 5 6101 #### [facility] [address] Vital Signs Date Time Vital Sign Value Performing Clinician Jacobi marciey 02-17-2020 20:10-0400 BP Diastolic 63 mm[Hg] [facility] , [place] 02-17-2020 20:10-0400 BP Systolic 144 mm[Hg] [facility] , [place] 02-17-2020 20:00-0400 Body Temperature 98.1 [degF] [facility], [place] 02-17-2020 20:00-0400 Pulse (Heart Rate) 68 /min [facility], [place] 02-17-2020 15:55-0400 Pulse Oximetry 84 % [facility] , [place] 02-17-2020 15:55-0400 Respiratory Rate 22 /min [facility], [place] 02-16-2020 04:00-0400 BMI (Body Mass Index) 35.44 kg/m2 [facility], [place] 02-16-2020 04:00-0400 Body weight 99.6 kg [facility] , [place] 02-14-2020 02:51-0400 Respiratory rate NOT REPORTED [facility], [place] 02-13-2020 22:30-0400 Height 167.6 cm [facility] , [place] 02-03-2020 16:01-0400 Body Temperature 97.59 [degF] [facility], [place] 02-03-2020 16:01-0400 BP Diastolic 57 mm[Hg] [facility], [place] 02-03-2020 16:01-0400 BP Systolic 111 mm[Hg] Darren Fuchs [facility] [place] 02-03-2020 16:01-0400 Pulse (Heart Rate) 91 /min [facility] [place] [facility] [place], [place] 02-03-2020 16:01-0400 Pulse Oximetry 92 % [facility] 02-03-2020 16:01-0400 Respiratory Rate 18 /min [facility] [place] [facility] [place], [place] 02-03-2020 03:25-0400 BMI (Body Mass Index) 35.38 kg/m2 [facility] [place] [facility] [place], [place] 02-03-2020 03:25-0400 Body weight 99.43 kg [facility] [place] [facility] [place] 01-30-2020 07:10-0400 Height 167.6 cm [facility] [place] [facility] [place] 01-27-2020 13:39-0400 Pulse Oximetry 96 % [facility] [place] 01-27-2020 09:59-0400 Body Temperature 98.49 [degF] [facility] [place] 01-27-2020 09:59-0400 BP Diastolic 53 mm[Hg] [facility] [place] , [place] 01-27-2020 09:59-0400 BP Systolic 112 mm[Hg] [facility] [place] , [place] 01-27-2020 09:59-0400 Pulse (Heart Rate) 92 /min [facility] [place], [place] 01-27-2020 09:59-0400 Respiratory Rate 20 /min [facility] [place] [place] 01-27-2020 03:37-0400 BMI (Body Mass Index) 35.64 kg/m2 [facility] [place], [place] 01-27-2020 03:37-0400 Body weight 100.15 kg [facility] , [place] 01-25-2020 00:30-0400 Height 167.6 cm [facility] [place] , [place] 12-14-2019 12:21-0400 Body Temperature 97.81 [degF] [facility] [place], [place] 12-14-2019 12:21-0400 BP Diastolic 57 mm[Hg] [facility] , [place] 12-14-2019 12:21-0400 BP Systolic 113 mm[Hg] [facility] , [place] 12-14-2019 12:21-0400 Pulse (Heart Rate) 82 /min [facility], [place] 12-14-2019 12:21-0400 Pulse Oximetry 93 % [facility] , [place] 12-14-2019 12:21-0400 Respiratory Rate 19 /min [facility], [place] 12-14-2019 03:42-0400 BMI (Body Mass Index) 35.75 kg/m2 [facility] [place] 12-14-2019 03:42-0400 Body weight 100.47 kg [facility] , [place] 12-11-2019 03:55-0400 Height 167.6 cm [facility] , [place] 09-01-2019 15:26-0400 BP Diastolic 76 mm[Hg] [facility] , [place] 09-01-2019 15:26-0400 BP Systolic 116 mm[Hg] [facility] , [place] 09-01-2019 15:26-0400 Pulse (Heart Rate) 88 /min [facility], [place] 09-01-2019 15:26-0400 Pulse Oximetry 97 % [facility] , [place] 09-01-2019 15:26-0400 Respiratory Rate 12 /min [facility], [place] 09-01-2019 12:45-0400 BMI (Body Mass Index) 36.15 kg/m2 [facility], [place] 09-01-2019 12:45-0400 Body Temperature 97.59 [degF] [facility], [place] 09-01-2019 12:45-0400 Body weight 101.61 kg [facility] , [place] 09-01-2019 12:45-0400 Height 167.6 cm [facility] , [place] 08-29-2019 08:33-0400 Pulse Oximetry 94 % Andrea [facility] [place] , [place] 08-29-2019 08:15-0400 Body Temperature 97.59 [degF] [facility] 08-29-2019 08:15-0400 BP Diastolic 67 mm[Hg] [facility] [place] , [place] 08-29-2019 08:15-0400 BP Systolic 104 mm[Hg] [facility] [place] , [place] 08-29-2019 08:15-0400 Pulse (Heart Rate) 62 /min [facility] [place] [place] 08-29-2019 08:15-0400 Respiratory Rate 18 /min Andrea Lion [facility] [place], [place] 08-29-2019 03:30-0400 BMI (Body Mass Index) 36.22 kg/m2 Andrea Lion [facility] [place], [place] 08-29-2019 03:30-0400 Body weight 101.79 kg [facility] , [place] 08-26-2019 11:00-0400 Height 167.6 cm Andrea Lion [facility] , [place] 07-21-2019 08:00-0400 Body Temperature 97.5 [degF] [facility] 07-21-2019 08:00-0400 BP Diastolic 87 mm[Hg] Mayra Lion [facility] [place] , [place] 07-21-2019 08:00-0400 BP Systolic 115 mm[Hg] [facility] [place] , [place] 07-21-2019 08:00-0400 Pulse (Heart Rate) 81 /min Mayra Lion [facility], [place] 07-21-2019 08:00-0400 Pulse Oximetry 90 % Mayra Lion [facility] [place] , [place] 07-21-2019 08:00-0400 Respiratory Rate 18 /min [facility] 07-21-2019 04:02-0400 BMI (Body Mass Index) 38.22 kg/m2 Mayra Lion [facility] [place], [place] 07-21-2019 04:02-0400 Body weight 107.41 kg Mayra Lion [facility] [place] , [place] 07-19-2019 11:14-0400 Height 167.6 cm Mayra Petit [place], [place] Encounters Encounter Date Encounter Type Care Provider Facility Start: 07-21-2024 ambulatory Facility:Zuri Nelson Start: 09-05-2022 ambulatory GABE PRESTON Facil ity:H1 Start: 06-30-2022 End: 07-01-2022 ambulatory GABE PRESTON Facility:H1 Start: 03-10-2022 ambulatory KORINA RODRIGUEZ Faci lity:H1 Start: 02-10-2022 End: 02-11-2022 ambulatory PETER D MICHAEL Facility:H1 Start: 02-10-2022 ambulatory GABE PRESTON Facil ity:H1 Start: 01-23-2022 End: 01-24-2022 ambulatory KORINA D MICHAEL Facility:H1 Start: 01-20-2022 End: 01-20-2022 ambulatory GABE PRESTON Facility:H1 Start: 09-28-2020 End: 09-29-2020 ambulatory ANIKA STONE [facility] Start: 09-28-2020 End: 09-28-2020 Subsequent hospital visit by physician [facility] Echo Room [facility] Echocardiography Comment on above: Chronic diastolic co ngestive heart failure (HCC); Severe aortic stenosis; S/P TAVR (transcatheter aortic valve replacement); Coronary artery disease involving chippewa-cree coronary artery of chippewa-cree heart without angina pectoris; S/P angioplasty with stent; PAF (paroxysmal atrial fibrillation) ([facility]) Start: 02-13-2020 End: 02-18-2020 Evaluation and management of inpatient MANJU PRESTON [facility] Start: 02-13-2020 End: 02-17-2020 Evaluation and management of inpatient Victoriano Avhaleyi Work Phone: [facility] CAR 1 Comment on above: Acute on chronic com bined systolic and diastolic congestive heart failure (HCC) (Primary Dx); LIBERTY (acute kidney injury) ([facility]) Start: 01-30-2020 End: 02-03-2020 Evaluation and management of inpatient MANJU PRESTON [facility] Start: 01-30-2020 End: 02-03-2020 Evaluation and management of inpatient Darren Fuchs Work Phone: [facility] CCU-STEPDOWN 3B Comment on above: LIBERTY (acute kidney in jury) ([facility]) (Primary Dx); Hyperkalemia Start: 01-25-2020 End: 01-27-2020 Evaluation and management of inpatient HYACINTH BEAUCHAMP [facility] Start: 01-24-2020 End: 01-27-2020 Evaluation and management of inpatient Hyacinth Beauchamp Work Phone: [facility] Comment on above: Anemia, unspecified type (Primary Dx); Acute on chronic diastolic HF (heart failure) ([facility]) Start: 01-17-2020 End: 01-18-2020 ambulatory [facility] Romulo [facility] Start: 01-17-2020 End: 01-17-2020 Subsequent hospital visit by physician [facility] Covid Screening Schedule [facility] Covid Screening Comment on above: Screening procedure Acute on chronic magalie stolic HF (heart failure) ([facility]); Chronic diastolic congestive heart failure ([facility]); Aortic stenosis, severe; Coronary artery disease involving chippewa-cree coronary artery of chippewa-cree heart without angina pectoris; PAF (paroxysmal atrial fibrillation) ([facility]) Start: 12-11-2019 End: 12-14-2019 Evaluation and management of inpatient CRYSTAL NAVARRO [facility] Start: 12-11-2019 End: 12-14-2019 Evaluation and management of inpatient Crystal Ramon Work Phone: [facility] CCU-STEPDOWN 3B Comment on above: Acute on chronic magalie stolic HF (heart failure) ([facility]) (Primary Dx) Start: 09-14-2019 End: 09-15-2019 Patient encounter procedure RITCHIE BRUMFIELD [facility] Start: 09-14-2019 End: 09-14-2019 Subsequent hospital visit by physician [facility] 1 [facility] CT Scan Comment on above: Nonrheumatic aortic valve stenosis Start: 09-02-2019 End: 09-02-2019 Patient encounter procedure MANJU PRESTON [facility] Start: 09-01-2019 End: 09-01-2019 Subsequent hospital visit by physician Jean Borrero Work Phone: [employer] Comment on above: Severe aortic stenos is; Atherosclerosis of coronary artery of chippewa-cree heart, angina presence unspecified, unspecified vessel or lesion type; Acute on chronic diastolic heart failure (HCC) Start: 08-26-2019 End: 08-29-2019 Evaluation and management of inpatient Andrea Bah Work Phone: [facility] Comment on above: Acute on chronic com bined systolic and diastolic CHF (congestive heart failure) (HCC) (Primary Dx); Aortic stenosis, severe; Acute respiratory failure with hypoxia (HCC) Start: 07-18-2019 End: 07-21-2019 Evaluation and management of inpatient Mayra Petit Work Phone: [facility] Comment on above: Congestive heart rishi lure, unspecified HF chronicity, unspecified heart failure type (HCC) (Primary Dx); Hypoxia; Acute on chronic diastolic HF (heart failure) (HCC); Chronic obstructive pulmonary disease with acute exacerbation (HCC) Start: 12-12-2018 End: 12-17-2018 Evaluation and management of inpatient Bladimir Brumfield Facility:[facility] Procedures Date Procedure Procedure Detail Performing Clinician Start: 09-28-2020 Echo tthrc r-t 2d w/wom-mode compl spec&colr d Anika Stone MD Work Phone: Start: 09-28-2020 Basic metabolic pane l calcium total Aniak Stone MD Work Phone: Start: 09-28-2020 Lipid panel Anika hughes MD Work Phone: Start: 02-17-2020 PULSE OXIMETRY, CONTINUOUS MANJU AICHHOLZ Start: 02-17-2020 Basic metabolic pane l calcium total MANJU AICHHOLZ Start: 02-17-2020 PULSE OXIMETRY, CONTINUOUS MANJU AICHHOLZ Start: 02-17-2020 DISCHARGE PATIENT MANJU AICHHOLZ Start: 02-17-2020 PULSE OXIMETRY, CONTINUOUS MANJU AICHHOLZ Start: 02-17-2020 Radiologic exam ches t single view MANJU AICHHOLZ Start: 02-17-2020 INITIATE OXYGEN THER APY PROTOCOL MANJU AICHHOLZ Start: 02-17-2020 MDI TREATMENT MANJU AICH NICKY Start: 02-17-2020 PULSE OXIMETRY, CONTINUOUS MANJU AICHHOLZ Start: 02-17-2020 Radiologic exam ches t single view Anai Pedraza Work Phone: Start: 02-17-2020 Basic metabolic pane l calcium total MANJU AICHHOLZ Start: 02-17-2020 Antibody screen Victoriano A jameshi Start: 02-17-2020 Glucose blood reagent strip [employer] Work Phone: Start: 02-17-2020 Assay of magnesium Brooks treefrain Leblanc Work Phone: Start: 02-17-2020 Assay of phosphorus inorganic Maverick AcostaPaintZen Work Phone: Start: 02-17-2020 Basic metabolic pane l calcium total Maverick Leblanc Work Phone: Start: 02-17-2020 Blood count complete auto&auto difrntl wbc Maverick VillagomezOPENLANE Work Phone: Start: 02-17-2020 Calcium ionized Alexand er DavePaintZen Work Phone: Start: 02-17-2020 PULSE OXIMETRY, CONTINUOUS MANJU AICHHOLZ Start: 02-17-2020 Glucose blood reagent strip MANJU AICHHOLZ Start: 02-17-2020 INTAKE AND OUTPUT MANJU AICHHOLZ Start: 02-17-2020 PULSE OXIMETRY, CONTINUOUS MANJU AICHHOLZ Start: 02-17-2020 Glucose blood reagent strip [employer] Work Phone: Start: 02-16-2020 Glucose blood reagent strip MANJU AICHHOLZ Start: 02-16-2020 PULSE OXIMETRY, CONTINUOUS MANJU AICHHOLZ Start: 02-16-2020 TRANSFER PATIENT MANJU A ICHHOLZ Start: 02-16-2020 Glucose blood reagent strip [employer] Work Phone: Start: 02-16-2020 Glucose blood reagent strip MANJU AICHHOLZ Start: 02-16-2020 PULSE OXIMETRY, CONTINUOUS MANJU AICHHOLZ Start: 02-16-2020 RHYTHM STRIP REPORT LIS A AICHHOLZ Start: 02-16-2020 Glucose blood reagent strip [employer] Work Phone: Start: 02-16-2020 RHYTHM STRIP REPORT Hpf Scanning Start: 02-16-2020 PULSE OXIMETRY, CONTINUOUS MANJU AICHHOLZ Start: 02-16-2020 Glucose blood reagent strip MANJU AICHHOLZ Start: 02-16-2020 Glucose blood reagent strip Zalidiaulabedin [place] Work Phone: Start: 02-16-2020 Glucose blood reagent strip MANJU AICHHOLZ Start: 02-16-2020 INITIATE OXYGEN THER APY PROTOCOL MANJU AICHHOLZ Start: 02-16-2020 PULSE OXIMETRY, CONTINUOUS MANJU AICHHOLZ Start: 02-16-2020 MDI TREATMENT MANJU AICH NICKY Start: 02-16-2020 OT EVAL AND TREAT MANJU AICHHOLZ Start: 02-16-2020 PT EVAL AND TREAT MANJU AICHHOLZ Start: 02-16-2020 Glucose blood reagent strip [employer] Work Phone: Start: 02-16-2020 Basic metabolic pane l calcium total MANJU AICHHOLZ Start: 02-16-2020 PULSE OXIMETRY, CONTINUOUS MANJU AICHHOLZ Start: 02-16-2020 Glucose blood reagent strip [employer] Work Phone: Start: 02-16-2020 Assay of magnesium Brooks tre Hernandosamm Work Phone: Start: 02-16-2020 Assay of phosphorus inorganic Maverick Leblanc Work Phone: Start: 02-16-2020 Basic metabolic pane l calcium total Maverick Villagomezvanclara Work Phone: Start: 02-16-2020 Blood count complete auto&auto difrntl wbc Maverick Villagomezvandi Work Phone: Start: 02-16-2020 Calcium ionized Alexand efrain Hernandovanclara Work Phone: Start: 02-16-2020 Glucose blood reagent strip MANJU AICHHOLZ Start: 02-16-2020 Echo transthorc r-t 2d w/wo m-mode rec f-up/lmtd MANJU AICHHOLZ Start: 02-16-2020 INTAKE AND OUTPUT MANJU AICHHOLZ Start: 02-16-2020 PULSE OXIMETRY, CONTINUOUS MANJU AICHHOLZ Start: 02-16-2020 HEMOGLOBIN AND HEMAT OCRIT, BLOOD MANJU AICHHOLZ Start: 02-16-2020 Glucose blood reagent strip [employer] [place] Work Phone: Start: 02-15-2020 Blood count hemoglobin Katie Avula Work Phone: Start: 02-15-2020 PULSE OXIMETRY, CONTINUOUS MANJU AICHHOLZ Start: 02-15-2020 Glucose blood reagent strip MANJU AICHHOLZ Start: 02-15-2020 Glucose blood reagent strip ZainCallidus Bi[employer] Work Phone: Start: 02-15-2020 HEMOGLOBIN AND HEMAT OCRIT, BLOOD MANJU AICHHOLZ Start: 02-15-2020 Assay of troponin quantitative MANJU AICHHOLZ Start: 02-15-2020 INITIATE RT PROTOCOL LI SA AICHHOLZ Start: 02-15-2020 PULSE OXIMETRY, CONTINUOUS MANJU AICHHOLZ Start: 02-15-2020 DIET CARDIAC MANJU AICHH OLZ Start: 02-15-2020 EXTUBATION MANJU AICHH OLZ Start: 02-15-2020 Assay of troponin quantitative Galdino Ley Work Phone: Start: 02-15-2020 Blood count hemoglobin Parth Cowan Work Phone: Start: 02-15-2020 Glucose blood reagent strip [employer] Work Phone: Start: 02-15-2020 EXTUBATION Yuriy Khat ri Work Phone: Start: 02-15-2020 ARTERIAL BLOOD GAS, POC MANJU AICHHOLZ Start: 02-15-2020 LACTIC ACID,POINT OF CARE MANJU AICHHOLZ Start: 02-15-2020 Comprehensive metabo lic panel MANJU AICHHOLZ Start: 02-15-2020 Radiologic exam ches t single view [employer] Work Phone: Start: 02-15-2020 ABG DRAW MANJU AICHH OLZ Start: 02-15-2020 TECHNICAL WRITER REPORT MANJU AI CHHOLZ Start: 02-15-2020 IP CONSULT TO HOSPITALIST MANJUPam PRESTON Start: 02-15-2020 PULSE OXIMETRY, CONTINUOUS MANJU FELICITASYrisNICKY Start: 02-15-2020 ARTERIAL BLOOD GAS, POC Marioninellein Osman Work Phone: Start: 02-15-2020 Gluc bld gluc mntr d ev cleared fda spec home use Zainulabedin Osman Work Phone: Start: 02-15-2020 LACTIC ACID,POINT OF CARE Marioninmohsenbedin Osman Work Phone: Start: 02-15-2020 ANION GAP (CALC) POC NATHANIEL GEE FELICITASYrisNICKY Start: 02-15-2020 ARTERIAL BLOOD GAS, POC MANJU BEATRIZ Start: 02-15-2020 Assay of troponin quantitative MANJU BEATRIZ Start: 02-15-2020 CREATININE W/GFR POI NT OF CARE MANJU BEATRIZ Start: 02-15-2020 LACTIC ACID,POINT OF CARE MANJU FELICITASYrisNICKY Start: 02-15-2020 Ecg routine ecg w/le ast 12 lds w/i&r MANJU FELICITASYrisNICKY Start: 02-15-2020 EKG REPORT MANJU BRAGA ALIYA Start: 02-15-2020 INITIATE OXYGEN THER APY PROTOCOL MANJU BEATRIZ Start: 02-15-2020 IP CONSULT TO CARDIAC REHAB MANJU BEATRIZ Start: 02-15-2020 NURSING COMMUNICATION L BERTA FELICITASYrisNICKY Start: 02-15-2020 PUNCTURE SITE CARE MANJU BEATRIZ Start: 02-15-2020 TOBACCO CESSATION EDUCATION MANJU BEATRIZ Start: 02-15-2020 BATHROOM PRIVILEGES WITH ASSISTANCE MANJU BEATRIZ Start: 02-15-2020 FULL CODE MANJU BRAGA DONALDODexter Start: 02-15-2020 NOTIFY PHYSICIAN (SPECIFY) MANJU PRESTON Start: 02-15-2020 BASIC METABOLIC PANE L W/ REFLEX TO MG FOR LOW K Zainulabedin Osman Work Phone: Start: 02-15-2020 ABG DRAW Zainulabed in Osman Work Phone: Start: 02-15-2020 TECHNICAL WRITER REPORT Hpf Sca nning Start: 02-15-2020 ACTIVATED CLOTTING TIME MANJU PRESTON Start: 02-15-2020 TYPE AND SCREEN MANJU ARNETT Start: 02-15-2020 Assay of troponin quantitative Amshelby Ley Work Phone: Start: 02-15-2020 Autol bld/component collj storage predeposited MANUJ PRESTON Start: 02-15-2020 PREPARE RBC (CROSSMATCH) MANJU PRESTON Start: 02-15-2020 ANION GAP (CALC) POC Sa lil Avasthi Work Phone: Start: 02-15-2020 ARTERIAL BLOOD GAS, POC Victoriano Avasthi Work Phone: Start: 02-15-2020 Blood count hemoglobin Victoriano Avasthi Work Phone: Start: 02-15-2020 CALCIUM, IONIC (POC) Sa lil Avasthi Work Phone: Start: 02-15-2020 Chloride [Moles/Vol] Sa lil Avasthi Work Phone: Start: 02-15-2020 CREATININE W/GFR POI NT OF CARE Victoriano Avasthi Work Phone: Start: 02-15-2020 Gluc bld gluc mntr d ev cleared fda spec home use Victoriano Avasthi Work Phone: Start: 02-15-2020 LACTIC ACID,POINT OF CARE Victoriano Avasthi Work Phone: Start: 02-15-2020 Potassium [Moles/Vol] S alil Avasthi Work Phone: Start: 02-15-2020 Sodium [Moles/Vol] Sali l Avasthi Work Phone: Start: 02-15-2020 Ecg routine ecg w/le ast 12 lds i&r only Paresh Brewer Work Phone: Start: 02-15-2020 EKG REPORT Hpf Scanni ng Start: 02-15-2020 R & l hrt cath w/njx l ventriculog img s&i MANJU PRESTON Start: 02-15-2020 Echo transthorc r-t 2d w/wo m-mode rec f-up/lmtd MANJU AICHHOLZ Start: 02-15-2020 HEMOGLOBIN AND HEMAT OCRIT, BLOOD MANJU AICHHOLZ Start: 02-15-2020 Thromboplastin time partial plasma/whole blood MANJU AICHHOLZ Start: 02-15-2020 End: 02-15-2020 Coagulation time activated Victoriano Avasthi Work Phone: Start: 02-15-2020 PULSE OXIMETRY, CONTINUOUS MANJU AICHHOLZ Start: 02-15-2020 Blood typing serologic abo Amalainar Oz Work Phone: Start: 02-15-2020 BLOOD BANK SPECIMEN Edwin il Avasthi Work Phone: Start: 02-15-2020 Blood count hemoglobin Ratika Chapo Work Phone: Start: 02-15-2020 Thromboplastin time partial plasma/whole blood Ratifrancisco Chapo Work Phone: Start: 02-15-2020 Basic metabolic pane l calcium total MANJU AICHHOLZ Start: 02-15-2020 ARTERIAL BLOOD GAS, POC MANJU AICHHOLZ Start: 02-15-2020 Gluc bld gluc mntr d ev cleared fda spec home use MANJU AICHHOLZ Start: 02-15-2020 PULSE OXIMETRY, CONTINUOUS MANJU AICHHOLZ Start: 02-15-2020 Assay of magnesium Brooks hutchinsefrain Leblanc Work Phone: Start: 02-15-2020 Assay of phosphorus inorganic Maverick Leblanc Work Phone: Start: 02-15-2020 Assay of troponin quantitative Maverick Leblanc Work Phone: Start: 02-15-2020 Basic metabolic pane l calcium total Maverick Leblanc Work Phone: Start: 02-15-2020 Blood count complete auto&auto difrntl wbc Maverick Villagomezvanclara Work Phone: Start: 02-15-2020 Calcium ionized Alexand efrain Leblanc Work Phone: Start: 02-15-2020 ARTERIAL BLOOD GAS, POC Victoriano Avasthi Work Phone: Start: 02-15-2020 Gluc bld gluc mntr d ev cleared fda spec home use Victoriano Avasthi Work Phone: Start: 02-15-2020 HEMOGLOBIN AND HEMAT OCRIT, BLOOD MANJU AICHHOLZ Start: 02-15-2020 Thromboplastin time partial plasma/whole blood MANJU AICHHOLZ Start: 02-15-2020 INTAKE AND OUTPUT MANJU AICHHOLZ Start: 02-15-2020 PULSE OXIMETRY, CONTINUOUS MANJU AICHHOLZ Start: 02-15-2020 Blood count hemoglobin Ratika Chapo Work Phone: Start: 02-15-2020 Thromboplastin time partial plasma/whole blood Ratika Chapo Work Phone: Start: 02-14-2020 PULSE OXIMETRY, CONTINUOUS MANJU AICHHOLZ Start: 02-14-2020 Blood gases any comb ination ph pco2 po2 co2 hco3 MANJU AICHHOLZ Start: 02-14-2020 HEMOGLOBIN AND HEMAT OCRIT, BLOOD MANJU AICHHOLZ Start: 02-14-2020 Thromboplastin time partial plasma/whole blood MANJU AICHHOLZ Start: 02-14-2020 PULSE OXIMETRY, CONTINUOUS MANJU AICHHOLZ Start: 02-14-2020 Blood count hemoglobin Ratika Chapo Work Phone: Start: 02-14-2020 Thromboplastin time partial plasma/whole blood Ratika Chapo Work Phone: Start: 02-14-2020 Glucose blood reagent strip Victoriano Avasthi Work Phone: Start: 02-14-2020 PULSE OXIMETRY, CONTINUOUS MANJU AICHHOLZ Start: 02-14-2020 Iadna respiratry pro be & rev trnscr 05-04 target MANJU AICHHOLZ Start: 02-14-2020 Blood count complete automated MANJU AICHHOLZ Start: 02-14-2020 Iadna respiratry pro be & rev trnscr 05-04 target Ratika Chapo Work Phone: Start: 02-14-2020 Blood count complete automated Ratika Chapo Work Phone: Start: 02-14-2020 Thromboplastin time partial plasma/whole blood Ratika Chapo Work Phone: Start: 02-14-2020 PULSE OXIMETRY, CONTINUOUS MANJU AICHHOLZ Start: 02-14-2020 IP CONSULT TO CARDIOLOGY MANJU AICHHOLZ Start: 02-14-2020 Basic metabolic pane l calcium total MANJU AICHHOLZ Start: 02-14-2020 PULSE OXIMETRY, CONTINUOUS MANJU AICHHOLZ Start: 02-14-2020 ARTERIAL BLOOD GAS, POC MANJU AICHHOLZ Start: 02-14-2020 POC BLOOD GAS MANJU AICH NICKY Start: 02-14-2020 Radiologic exam abdo men 1 view MANJU AICHHOLZ Start: 02-14-2020 Radiologic exam ches t single view MANJU AICHHOLZ Start: 02-14-2020 Assay of magnesium Brooks treefrain Leblanc Work Phone: Start: 02-14-2020 Assay of phosphorus inorganic Maverick Leblanc Work Phone: Start: 02-14-2020 Assay of troponin quantitative Maverick Leblanc Work Phone: Start: 02-14-2020 Basic metabolic pane l calcium total Maverick Leblanc Work Phone: Start: 02-14-2020 Blood count complete auto&auto difrntl wbc Maverick Leblanc Work Phone: Start: 02-14-2020 Calcium ionized Alexand efrain Leblanc Work Phone: Start: 02-14-2020 Ecg routine ecg w/le ast 12 lds w/i&r MANJU FELICITASHHOLZ Start: 02-14-2020 EKG REPORT MANJU FELICITASH OLZ Start: 02-14-2020 Blood count complete automated MANJU AICHHOLZ Start: 02-14-2020 Blood gases any comb ination ph pco2 po2 co2 hco3 MANJU AICHHOLZ Start: 02-14-2020 ARTERIAL BLOOD GAS, POC Victoriano Avasthi Work Phone: Start: 02-14-2020 Radiologic exam abdo men 1 view Maverick Leblanc Work Phone: Start: 02-14-2020 Radiologic exam ches t single view Maverick Leblanc Work Phone: Start: 02-14-2020 ELEVATE EXTREMITY MANJU AICHHOLZ Start: 02-14-2020 ELEVATE HOB MANJU AICHH OLZ Start: 02-14-2020 NOTIFY PHYSICIAN (SPECIFY) MANJU AICHHOLZ Start: 02-14-2020 PL[address] INTERMITTENT PNEUMATIC COMPRESSION DEVICE MANJU AICHHOLZ Start: 02-14-2020 TELEMETRY MONITORING LI AICHHOLZ Start: 02-14-2020 DAILY WEIGHTS MANJU AICH NICKY Start: 02-14-2020 INTAKE AND OUTPUT MANJU AICHHOLZ Start: 02-14-2020 VITAL SIGNS MANJU AICHH OLZ Start: 02-14-2020 Ecg routine ecg w/le ast 12 lds trcg only w/o i&r [email or web address] Work Phone: Start: 02-14-2020 EKG REPORT Hpf Scanni ng Start: 02-14-2020 Assay of troponin quantitative [email or web address] Work Phone: Start: 02-14-2020 Basic metabolic pane l calcium total [email or web address] Work Phone: Start: 02-14-2020 Blood count complete automated [email or web address] Work Phone: Start: 02-14-2020 Blood gases any comb ination ph pco2 po2 co2 hco3 [email or web address] Work Phone: Start: 02-14-2020 PULSE OXIMETRY, CONTINUOUS MANJU AICHHOLZ Start: 02-14-2020 ARTERIAL BLOOD GAS, POC MANJU AICHHOLZ Start: 02-14-2020 Iadna s aureus methi cillin resist amp probe tq MANJU AICHHOLZ Start: 02-14-2020 Blood gases any comb ination ph pco2 po2 co2 hco3 MANJU AICHHOLZ Start: 02-14-2020 PULSE OXIMETRY, CONTINUOUS MANJU AICHHOLZ Start: 02-13-2020 ARTERIAL BLOOD GAS, POC Victoriano Avasthi Work Phone: Start: 02-13-2020 Iadna s aureus methi cillin resist amp probe tq Rigoberto Webster Work Phone: Start: 02-13-2020 PATIENT STATUS (DIRECT) MANJU AICHHOLZ Start: 02-03-2020 BIPAP MANJU AICHH OLZ Start: 02-03-2020 BIPAP MANJU AICHH OLZ Start: 02-03-2020 Gluc bld gluc mntr d ev cleared fda spec home use MANJU AICHHOLZ Start: 02-03-2020 DISCHARGE PATIENT MANJU AICHHOLZ Start: 02-03-2020 Gluc bld gluc mntr d ev cleared fda spec home use Kim Alpine Work Phone: Start: 02-03-2020 BIPAP MANJU AICHH OLZ Start: 02-03-2020 INITIATE OXYGEN THER APY PROTOCOL MANJU AICHHOLZ Start: 02-03-2020 MDI TREATMENT MANJU AICH NICKY Start: 02-03-2020 Antibody bordetella LIS A AICHHOLZ Start: 02-03-2020 Assay of magnesium MANJU AICHHOLZ Start: 02-03-2020 Basic metabolic pane l calcium total MANJU AICHHOLZ Start: 02-03-2020 Blood count complete auto&auto difrntl wbc MANJU AICHHOLZ Start: 02-03-2020 Blood smear peripher al interp phys w/writ report MANJU AICHHOLZ Start: 02-03-2020 Creatinine blood MANJU A ICHHOLZ Start: 02-03-2020 BIPAP MANJU AICHH OLZ Start: 02-03-2020 Gluc bld gluc mntr d ev cleared fda spec home use MANJU AICHHOLZ Start: 02-03-2020 Anion gap [Moles/Vol] P atrice Alpine Work Phone: Start: 02-03-2020 Assay of magnesium Margoth E Hemmelgarn Work Phone: Start: 02-03-2020 Basic metabolic pane l calcium total Kim Alpine Work Phone: Start: 02-03-2020 Blood count complete auto&auto difrntl wbc Daniel Fischer Work Phone: Start: 02-03-2020 GLOMERULAR FILTRATIO N RATE, ESTIMATED Kim Alpine Work Phone: Start: 02-03-2020 SCAN OF BLOOD SMEAR Pat rice Alpine Work Phone: Start: 02-03-2020 INTAKE AND OUTPUT MANJU AICHHOLZ Start: 02-03-2020 BIPAP MANJU AICHH OLZ Start: 02-02-2020 BIPAP MANJU AICHH OLZ Start: 02-02-2020 BIPAP MANJU AICHH OLZ Start: 02-02-2020 RHYTHM STRIP REPORT LIS A AICHHOLZ Start: 02-02-2020 RHYTHM STRIP REPORT Hpf Scanning Start: 02-02-2020 BIPAP MANJU AICHH OLZ Start: 02-02-2020 BIPAP MANJU AICHH OLZ Start: 02-02-2020 INITIATE OXYGEN THER APY PROTOCOL MANJU AICHHOLZ Start: 02-02-2020 MDI TREATMENT MANJU AICH NICKY Start: 02-02-2020 Blood gases any comb ination ph pco2 po2 co2 hco3 MANJU AICHHOLZ Start: 02-02-2020 End: 02-02-2020 Gluc bld gluc mntr dev cleared fda spec home use Kim Alpine Work Phone: Start: 02-02-2020 BLOOD GAS, ARTERIAL Amb er R Brown Work Phone: Start: 02-02-2020 BIPAP MANJU AICHH OLZ Start: 02-02-2020 Antibody bordetella LIS A AICHHOLZ Start: 02-02-2020 Assay of magnesium MANJU AICHHOLZ Start: 02-02-2020 Basic metabolic pane l calcium total MANJU AICHHOLZ Start: 02-02-2020 Creatinine blood MANJU A ICHHOLZ Start: 02-02-2020 HEMOGLOBIN AND HEMAT OCRIT, BLOOD MANJU AICHHOLZ Start: 02-02-2020 Anion gap [Moles/Vol] P atrice Alpine Work Phone: Start: 02-02-2020 Assay of magnesium Levi T Howard Work Phone: Start: 02-02-2020 Basic metabolic pane l calcium total Kim Alpine Work Phone: Start: 02-02-2020 Blood count hemoglobin Levi T Howard Work Phone: Start: 02-02-2020 GLOMERULAR FILTRATIO N RATE, ESTIMATED Kim Alpine Work Phone: Start: 02-02-2020 INTAKE AND OUTPUT MANJU AICHHOLZ Start: 02-02-2020 BIPAP MANJU AICHH OLZ Start: 02-01-2020 Gluc bld gluc mntr d ev cleared fda spec home use MANJU AICHHOLZ Start: 02-01-2020 BIPAP MANJU AICHH OLZ Start: 02-01-2020 Gluc bld gluc mntr d ev cleared fda spec home use Kim Alpine Work Phone: Start: 02-01-2020 Blood gases any comb ination ph pco2 po2 co2 hco3 MANJU AICHHOLZ Start: 02-01-2020 BIPAP MANJU AICHH OLZ Start: 02-01-2020 NURSING COMMUNICATION L BERTA AICHHOLZ Start: 02-01-2020 Blood gases any comb ination ph pco2 po2 co2 hco3 Margoth E Hemmelgarn Work Phone: Start: 02-01-2020 BIPAP MANJU AICHH OLZ Start: 02-01-2020 Gluc bld gluc mntr d ev cleared fda spec home use MANJU AICHHOLZ Start: 02-01-2020 Gluc bld gluc mntr d ev cleared fda spec home use Kim Alpine Work Phone: Start: 02-01-2020 IP CONSULT TO HOME C ARE NEEDS MANJU AICHHOLZ Start: 02-01-2020 IP CONSULT TO SOCIAL WORK MANJU AICHHOLZ Start: 02-01-2020 BIPAP MANJU AICHH OLZ Start: 02-01-2020 INITIATE OXYGEN THER APY PROTOCOL MANJU AICHHOLZ Start: 02-01-2020 MDI TREATMENT MANJU AICH NICKY Start: 02-01-2020 Gluc bld gluc mntr d ev cleared fda spec home use Kim Alpine Work Phone: Start: 02-01-2020 BIPAP MANJU AICHH OLZ Start: 02-01-2020 Antibody bordetella LIS A AICHHOLZ Start: 02-01-2020 Assay of magnesium MANJU AICHHOLZ Start: 02-01-2020 Basic metabolic pane l calcium total MANJU AICHHOLZ Start: 02-01-2020 Creatinine blood MANJU A ICHHOLZ Start: 02-01-2020 HEMOGLOBIN AND HEMAT OCRIT, BLOOD MANJU AICHHOLZ Start: 02-01-2020 Anion gap [Moles/Vol] P atrice Alpine Work Phone: Start: 02-01-2020 Assay of magnesium Jessa Buchanan Work Phone: Start: 02-01-2020 Basic metabolic pane l calcium total Kim Alpine Work Phone: Start: 02-01-2020 Blood count hemoglobin Jessa Buchanan Work Phone: Start: 02-01-2020 GLOMERULAR FILTRATIO N RATE, ESTIMATED Kim Alpine Work Phone: Start: 02-01-2020 INTAKE AND OUTPUT MANJU AICHHOLZ Start: 02-01-2020 BIPAP MANJU AICHH OLZ Start: 01-31-2020 BIPAP MANJU AICHH OLZ Start: 01-31-2020 Gluc bld gluc mntr d ev cleared fda spec home use MANJU AICHHOLZ Start: 01-31-2020 Gluc bld gluc mntr d ev cleared fda spec home use Kim Alpine Work Phone: Start: 01-31-2020 Gluc bld gluc mntr d ev cleared fda spec home use MANJU AICHHOLZ Start: 01-31-2020 BIPAP MANJU AICHH OLZ Start: 01-31-2020 Gluc bld gluc mntr d ev cleared fda spec home use Kim Alpine Work Phone: Start: 01-31-2020 MAINTAIN INTERMITTEN T PNEUMATIC COMPRESSION DEVICE MANJU AICHHOLZ Start: 01-31-2020 Radiologic exam ches t single view MANJU AICHHOLZ Start: 01-31-2020 Ecg routine ecg w/le ast 12 lds w/i&r MANJU AICHHOLZ Start: 01-31-2020 EKG REPORT MANJU AICHH OLZ Start: 01-31-2020 BIPAP MANJU AICHH OLZ Start: 01-31-2020 DIET CARB CONTROL MANJU AICHHOLZ Start: 01-31-2020 Radiologic exam ches t single view Jessa Buchanan Work Phone: Start: 01-31-2020 Ecg routine ecg w/le ast 12 lds i&r only Jessa Buchanan Work Phone: Start: 01-31-2020 EKG REPORT Hpf Scanni ng Start: 01-31-2020 End: 01-31-2020 Assay of troponin quantitative Jessa Buchanan Work Phone: Start: 01-31-2020 Blood gases any comb ination ph pco2 po2 co2 hco3 MANJU AICHHOLZ Start: 01-31-2020 Gluc bld gluc mntr d ev cleared fda spec home use MANJU AICHHOLZ Start: 01-31-2020 BIPAP MANJU AICHH OLZ Start: 01-31-2020 INITIATE OXYGEN THER APY PROTOCOL MANJU AICHHOLZ Start: 01-31-2020 MDI TREATMENT MANJU AICH NICKY Start: 01-31-2020 BLOOD GAS, ARTERIAL Jessa Buchanan Work Phone: Start: 01-31-2020 End: 01-31-2020 Gluc bld gluc mntr dev cleared fda spec home use Kim Alpine Work Phone: Start: 01-31-2020 Antibody identificat ion leukocyte antibodies MANJU AICHHOLZ Start: 01-31-2020 Antinuclear antibodies holland MANJU AICHHOLZ Start: 01-31-2020 Assay of nephelometr y each analyte terrell MANJU AICHHOLZ Start: 01-31-2020 Blood count complete automated MANJU AICHHOLZ Start: 01-31-2020 Complement antigen e ach component MANJU AICHHOLZ Start: 01-31-2020 Elctrophoretic techn ique not elsewhere specified MANJU AICHHOLZ Start: 01-31-2020 Fluorescent nonnfct agt antb screen ea antibody MANJU AICHHOLZ Start: 01-31-2020 Hepatitis c antibody LI SA AICHHOLZ Start: 01-31-2020 Iaad ia hepatitis b surface antigen MANJU AICHHOLZ Start: 01-31-2020 Immunoassay analyte quantitative nos MANJU AICHHOLZ Start: 01-31-2020 Protein electrophore tic fractj&quantj serum MANJU AICHHOLZ Start: 01-31-2020 Sedimentation rate r bc automated MANJU AICHHOLZ Start: 01-31-2020 [facility]ody [facility]ordetella [facility] Start: 01-31-2020 Assay of magnesium MANJU AICHHOLZ Start: 01-31-2020 Basic metabolic pane l calcium total MANJU AICHHOLZ Start: 01-31-2020 C-reactive protein MANJU AICHHOLZ Start: 01-31-2020 Creatinine blood MANJU A ICHHOLZ Start: 01-31-2020 Hepatic function panel [facility] Start: 01-31-2020 BIPAP MANJU [facility] OL[facility] Start: 01-31-2020 Antinuclear antibodies holland Margoth E Hemmelgarn Work Phone: Start: 01-31-2020 Assay of nephelometr y each analyte terrell Margoth E Hemmelgarn Work Phone: Start: 01-31-2020 Blood count complete automated Kim Alpine Work Phone: Start: 01-31-2020 End: 01-31-2020 Complement antigen each component Margoth E Hemmelgarn Work Phone: Start: 01-31-2020 Elctrophoretic techn ique not elsewhere specified Margoth E Hemmelgarn Work Phone: Start: 01-31-2020 Fluorescent nonnfct agt antb screen ea antibody Margoth E Hemmelgarn Work Phone: Start: 01-31-2020 GLOMERULAR BASEMENT MEMBRANE (GBM) ANTIBODY IGG Margoth E Hemmelgarn Work Phone: Start: 01-31-2020 Hepatitis c antibody Ji ll E Hemmelgarn Work Phone: Start: 01-31-2020 Iaad ia hepatitis b surface antigen Margoth E Hemmelgarn Work Phone: Start: 01-31-2020 MPO/MS-3(ANCA) ABS Margoth E Hemmelgarn Work Phone: Start: 01-31-2020 Sedimentation rate r bc automated Margoth E Hemmelgarn Work Phone: Start: 01-31-2020 Anion gap [Moles/Vol] P atrice Alpine Work Phone: Start: 01-31-2020 Assay of magnesium Patr ice Alpine Work Phone: Start: 01-31-2020 Basic metabolic pane l calcium total Kim Alpine Work Phone: Start: 01-31-2020 C-reactive protein Margoth E Hemmelgarn Work Phone: Start: 01-31-2020 GLOMERULAR FILTRATIO N RATE, ESTIMATED Kim Alpine Work Phone: Start: 01-31-2020 Hepatic function panel Kim Alpine Work Phone: Start: 01-31-2020 Culture bacterial bl ood aerobic w/id isolates MANJU AICHHOLZ Start: 01-31-2020 DAILY WEIGHTS MANJU AICH NICKY Start: 01-31-2020 INTAKE AND OUTPUT MANJU AICHHOLZ Start: 01-31-2020 BIPAP MANJU AICHH OLZ Start: 01-30-2020 Gluc bld gluc mntr d ev cleared fda spec home use MANJU AICHHOLZ Start: 01-30-2020 Us retroperitoneal r eal time w/image complete MANJU AICHHOLZ Start: 01-30-2020 BIPAP MANJU AICHH OLZ Start: 01-30-2020 Gluc bld gluc mntr d ev cleared fda spec home use Kim Alpine Work Phone: Start: 01-30-2020 Us retroperitoneal r eal time w/image complete Margoth E Hemmelgarn Work Phone: Start: 01-30-2020 Gluc bld gluc mntr d ev cleared fda spec home use MANJU AICHHOLZ Start: 01-30-2020 BIPAP MANJU AICHH OLZ Start: 01-30-2020 Cul fngi mold/yeast prsmptv id skn hair/nail MANJU AICHHOLZ Start: 01-30-2020 Protein total xcpt refractometry urine MANJU AICHHOLZ Start: 01-30-2020 Urnls dip stick/tabl et reagent auto microscopy MANJU AICHHOLZ Start: 01-30-2020 Gluc bld gluc mntr d ev cleared fda spec home use Kim Alpine Work Phone: Start: 01-30-2020 Cul fngi mold/yeast prsmptv id skn hair/nail Margoth E Hemmelgarn Work Phone: Start: 01-30-2020 Protein total xcpt refractometry urine Margoth E Hemmelgarn Work Phone: Start: 01-30-2020 Urnls dip stick/tabl et reagent auto microscopy Kim Alpine Work Phone: Start: 01-30-2020 Antibody bordetella LIS A AICHHOLZ Start: 01-30-2020 Basic metabolic pane l calcium total MANJU AICHHOLZ Start: 01-30-2020 Creatine kinase total L BERTA AICHHOLZ Start: 01-30-2020 Creatinine blood MANJU A ICHHOLZ Start: 01-30-2020 LIMITED CODE MANJU AICHH OLZ Start: 01-30-2020 IP CONSULT TO NEPHROLOGY MANJU AICHHOLZ Start: 01-30-2020 Gluc bld gluc mntr d ev cleared fda spec home use MANJU AICHHOLZ Start: 01-30-2020 Blood gases any comb ination ph pco2 po2 co2 hco3 MANJU AICHHOLZ Start: 01-30-2020 Anion gap [Moles/Vol] P atrice Alpine Work Phone: Start: 01-30-2020 Basic metabolic pane l calcium total Kim Alpine Work Phone: Start: 01-30-2020 Creatine kinase total J ill E Hemmelgarn Work Phone: Start: 01-30-2020 GLOMERULAR FILTRATIO N RATE, ESTIMATED Kim Alpine Work Phone: Start: 01-30-2020 Radiologic exam ches t single view MANJU AICHHOLZ Start: 01-30-2020 Assay of lactate MANJU A ICHHOLZ Start: 01-30-2020 CULTURE, BLOOD 1 MANJU A ICHHOLZ Start: 01-30-2020 Gluc bld gluc mntr d ev cleared fda spec home use Kim Alpine Work Phone: Start: 01-30-2020 BLOOD GAS, ARTERIAL Pat rice Alpine Work Phone: Start: 01-30-2020 Antibody bordetella LIS A AICHHOLZ Start: 01-30-2020 Assay of haptoglobin quantitative MANJU AICHHOLZ Start: 01-30-2020 Assay of magnesium MANJU AICHHOLZ Start: 01-30-2020 Assay of troponin quantitative MANJU AICHHOLZ Start: 01-30-2020 Basic metabolic pane l calcium total MANJU AICHHOLZ Start: 01-30-2020 Blood count complete automated MANJU AICHHOLZ Start: 01-30-2020 BRAIN NATRIURETIC PEPTIDE MANJU AICHHOLZ Start: 01-30-2020 Creatinine blood MANJU A ICHHOLZ Start: 01-30-2020 Hemoglobin glycosylated a1c MANJU AICHHOLZ Start: 01-30-2020 Hepatic function panel MANJU AICHHOLZ Start: 01-30-2020 Lactate dehydrogenase ldh MANJU AICHOLZ Start: 01-30-2020 Procalcitonin (pct) LIS A AICHOLZ Start: 01-30-2020 Radiologic exam ches t single view Kim Alpine Work Phone: Start: 01-30-2020 CULTURE, BLOOD 1 Chris e Alpine Work Phone: Start: 01-30-2020 LACTATE, SEPSIS Kim Alpine Work Phone: Start: 01-30-2020 MDI TREATMENT MANJU AICH NICKY Start: 01-30-2020 MAINTAIN INTERMITTEN T PNEUMATIC COMPRESSION DEVICE MANJU AICHHOLZ Start: 01-30-2020 REASON FOR NOT SELEC TING BASAL INSULIN MANJU AICHHOLZ Start: 01-30-2020 IP CONSULT TO CARDIAC REHAB MANJU AICHHOLZ Start: 01-30-2020 IP CONSULT TO HEART FAILURE NURSE/COORDINATOR MANJU AICHHOLZ Start: 01-30-2020 OT EVAL AND TREAT MANJU AICHHOLZ Start: 01-30-2020 PT EVAL AND TREAT MANJU AICHHOLZ Start: 01-30-2020 INITIATE OXYGEN THER APY PROTOCOL MANJU AICHHOLZ Start: 01-30-2020 INTAKE AND OUTPUT MANJU AICHHOLZ Start: 01-30-2020 IP CONSULT TO CARDIOLOGY MANJU AICHHOLZ Start: 01-30-2020 NOTIFY PHYSICIAN (SPECIFY) MANJU CANDELARIAHOLDexter Start: 01-30-2020 PLACE INTERMITTENT PNEUMATIC COMPRESSION DEVICE MANJU AICHHOLZ Start: 01-30-2020 VITAL SIGNS MANJUPam CANDELARIAH OLZ Start: 01-30-2020 COVID-19 MANJU AICHH OLZ Start: 01-30-2020 Anion gap [Moles/Vol] P atrice Alpine Work Phone: Start: 01-30-2020 Assay of haptoglobin quantitative Kim Alpine Work Phone: Start: 01-30-2020 Assay of magnesium Patr ice [facility] Work Phone: Start: 01-30-2020 Assay of troponin quantitative Kim Alpine Work Phone: Start: 01-30-2020 Basic metabolic pane l calcium total Kim Alpine Work Phone: Start: 01-30-2020 Blood count complete automated Kim [facility]pine Work Phone: Start: 01-30-2020 GLOMERULAR FILTRATIO N RATE, ESTIMATED Kim Alpine Work Phone: Start: 01-30-2020 Hemoglobin glycosylated a1c Kim Alpine Work Phone: Start: 01-30-2020 Hepatic function panel Kim Alpine Work Phone: Start: 01-30-2020 Lactate dehydrogenase ldh Kim Alpine Work Phone: Start: 01-30-2020 Natriuretic peptide Pat rice [facility] Work Phone: Start: 01-30-2020 Procalcitonin (pct) Pat rice [facility] Work Phone: Start: 01-30-2020 COVID-19 Kim Sc [facility] Work Phone: Start: 01-30-2020 TELEMETRY MONITORING NATHANIEL CANDELARIANICKY Start: 01-30-2020 PATIENT STATUS (DIRECT) MANJU POLKHHOLZ Start: 01-27-2020 DME ORDER FOR HOME O XYGEN OP MANJU POLKHHOLZ Start: 01-27-2020 HEMOGLOBIN AND HEMAT OCRIT, BLOOD MANJU AICHHOLZ Start: 01-27-2020 RHYTHM STRIP REPORT LIS A AICHHOLZ Start: 01-27-2020 RHYTHM STRIP REPORT Hpf Scanning Start: 01-27-2020 DISCHARGE PATIENT MANJU AICHHOLZ Start: 01-27-2020 HEMOGLOBIN AND HEMAT OCRIT, BLOOD MANJU AICHHOLZ Start: 01-27-2020 Blood count hemoglobin Kervin Reid Work Phone: Start: 01-27-2020 HEMOGLOBIN AND HEMAT OCRIT, BLOOD MANJU AICHHOLZ Start: 01-27-2020 INITIATE OXYGEN THER APY PROTOCOL MANJU AICHHOLZ Start: 01-27-2020 MDI TREATMENT MANJU AICH NICKY Start: 01-27-2020 Antibody bordetella LIS A AICHHOLZ Start: 01-27-2020 Assay of magnesium MANJU AICHHOLZ Start: 01-27-2020 Basic metabolic pane l calcium total MANJU AICHHOLZ Start: 01-27-2020 Creatinine blood MANJU A ICHHOLZ Start: 01-27-2020 HEMOGLOBIN AND HEMAT OCRIT, BLOOD MANJU AICHHOLZ Start: 01-27-2020 Anion gap [Moles/Vol] A larob Reid Work Phone: Start: 01-27-2020 Assay of magnesium Moha med Altattan Work Phone: Start: 01-27-2020 Basic metabolic pane l calcium total Mohamed Altattan Work Phone: Start: 01-27-2020 Blood count hemoglobin Alarob Blackwellm Work Phone: Start: 01-27-2020 GLOMERULAR FILTRATIO N RATE, ESTIMATED Alarob Reid Work Phone: Start: 01-27-2020 MDI TREATMENT MANJU AICH NICKY Start: 01-27-2020 INTAKE AND OUTPUT MANJU AICHHOLZ Start: 01-26-2020 HEMOGLOBIN AND HEMAT OCRIT, BLOOD MANJU AICHHOLZ Start: 01-26-2020 Blood count hemoglobin Alarob Reid Work Phone: Start: 01-26-2020 DIET CARDIAC MANJU AICHH OLZ Start: 01-26-2020 End: 01-26-2020 COLONOSCOPY POLYPECTOMY SNARE/COLD BIOPSY Abdulla Zoë Work Phone: Start: 01-26-2020 End: 01-26-2020 EGD DIAGNOSTIC ONLY Chloé Li Work Phone: Start: 01-26-2020 HEMOGLOBIN AND HEMAT OCRIT, BLOOD MANJU AICHHOLZ Start: 01-26-2020 Blood count hemoglobin Alaha Jeanette Work Phone: Start: 01-26-2020 INITIATE OXYGEN THER APY PROTOCOL MANJU AICHHOLZ Start: 01-26-2020 Antibody bordetella LIS A AICHHOLZ Start: 01-26-2020 Basic metabolic pane l calcium total MANJU AICHHOLZ Start: 01-26-2020 Blood count complete auto&auto difrntl wbc MANJU AICHHOLZ Start: 01-26-2020 Creatinine blood MANJU A ICHHOLZ Start: 01-26-2020 Anion gap [Moles/Vol] A my Hovest Work Phone: Start: 01-26-2020 Basic metabolic pane l calcium total Kaitlynn Hovest Work Phone: Start: 01-26-2020 Blood count complete auto&auto difrntl wbc Kaitlynn Hovest Work Phone: Start: 01-26-2020 GLOMERULAR FILTRATIO N RATE, ESTIMATED Kaitlynn Hovest Work Phone: Start: 01-26-2020 INTAKE AND OUTPUT MANJU AICHHOLZ Start: 01-25-2020 HEMOGLOBIN AND HEMAT OCRIT, BLOOD MANJU AICHHOLZ Start: 01-25-2020 Blood count hemoglobin Alaha Jeanette Work Phone: Start: 01-25-2020 Assay of troponin quantitative MANJU AICHHOLZ Start: 01-25-2020 HEMOGLOBIN AND HEMAT OCRIT, BLOOD MANJU AICHHOLZ Start: 01-25-2020 Assay of troponin quantitative Alaha Jeanette Work Phone: Start: 01-25-2020 Blood count hemoglobin Alaha Jeanette Work Phone: Start: 01-25-2020 Assay of ferritin MANJU AICHHOLZ Start: 01-25-2020 Assay of iron MANJU AICH NICKY Start: 01-25-2020 Assay of troponin quantitative MANJU AICHHOLZ Start: 01-25-2020 Blood count complete automated MANJU AICHHOLZ Start: 01-25-2020 INITIATE OXYGEN THER APY PROTOCOL MANJU AICHHOLZ Start: 01-25-2020 ENDOSCOPY, COLON, DIAGNOSTIC MANJU AICHHOLZ Start: 01-25-2020 Radiologic exam ches t 2 views MANJU AICHHOLZ Start: 01-25-2020 Assay of ferritin Rajinder la Zoë Work Phone: Start: 01-25-2020 Assay of iron Abdulla T miracle Work Phone: Start: 01-25-2020 Assay of troponin quantitative Kervin Reid Work Phone: Start: 01-25-2020 Blood count complete automated Kervin Reid Work Phone: Start: 01-25-2020 Radiologic exam ches t 2 views Kaitlynn Villaseñor Work Phone: Start: 01-25-2020 Ecg routine ecg w/le ast 12 lds w/i&r MANJU AICHHOLZ Start: 01-25-2020 STRICT INTAKE AND OUTPUT MANJU AICHHOLZ Start: 01-25-2020 IP CONSULT TO CARDIOLOGY MANJU AICHHOLZ Start: 01-25-2020 IP CONSULT TO GI MANJU BANKS Start: 01-25-2020 DAILY WEIGHTS MANJU AICH NICKY Start: 01-25-2020 FULL CODE MANJU AICHH OLZ Start: 01-25-2020 INITIATE OXYGEN THER APY PROTOCOL MANJU AICHHOLZ Start: 01-25-2020 INTAKE AND OUTPUT MANJU AICHHOLZ Start: 01-25-2020 REASON FOR NO MECHAN ICAL VTE PROPHYLAXIS MANJU AICHHOLZ Start: 01-25-2020 VITAL SIGNS MANJU AICHH OLZ Start: 01-25-2020 Ecg routine ecg w/le ast 12 lds i&r only Kervin Reid Work Phone: Start: 01-25-2020 ABO/RH MANJU AICHH OLZ Start: 01-25-2020 Antibody screen rbc each serum technique MANJU AICHHOLZ Start: 01-25-2020 ELEVATE HEELS OFF OF BED MANJU AICHHOLZ Start: 01-25-2020 HEAD OF BED 60 DEGRE ES OR LESS MANJU PRESTON Start: 01-25-2020 NURSING COMMUNICATION L BERTA PRESTON Start: 01-25-2020 TURN PATIENT MANJU PISANO Start: 01-25-2020 Antibody bordetella KASH PRESTON Start: 01-25-2020 Assay of magnesium MANJU BEATRIZ Start: 01-25-2020 Assay of troponin quantitative MANJU BEATRIZ Start: 01-25-2020 Blood count complete auto&auto difrntl wbc MANJU BEATRIZ Start: 01-25-2020 BRAIN NATRIURETIC PEPTIDE MANJU BEATRIZ Start: 01-25-2020 Comprehensive metabo lic panel MANJU BEATRIZ Start: 01-25-2020 Creatinine blood MANJU A DARREN Start: 01-25-2020 Prothrombin time MANJU A DARREN Start: 01-25-2020 Thromboplastin time partial plasma/whole blood MANJU PRESTON Start: 01-25-2020 Antibody screen rbc each serum technique Crystal Ramon Work Phone: Start: 01-25-2020 Blood typing serologic abo Crystal Ramon Work Phone: Start: 01-25-2020 Anion gap [Moles/Vol] M ohsin Ramon Work Phone: Start: 01-25-2020 Assay of magnesium Mohs in Ramon Work Phone: Start: 01-25-2020 Assay of troponin quantitative Crystal Ramon Work Phone: Start: 01-25-2020 Blood count complete auto&auto difrntl wbc Crystal Ramon Work Phone: Start: 01-25-2020 Comprehensive metabo lic panel Crystal Ramon Work Phone: Start: 01-25-2020 GLOMERULAR FILTRATIO N RATE, ESTIMATED Crystal Ramon Work Phone: Start: 01-25-2020 Natriuretic peptide Moh sin Ramon Work Phone: Start: 01-25-2020 Prothrombin time Crystal Ramon Work Phone: Start: 01-25-2020 Thromboplastin time partial plasma/whole blood Crystal Ramon Work Phone: Start: 01-24-2020 PATIENT STATUS (DIRECT) MANJU AICHHOLZ Start: 01-24-2020 TELEMETRY MONITORING NATHANIEL GEE AICHHOLZ Start: 01-17-2020 Basic metabolic pane l calcium total ALI AHMAD Start: 01-17-2020 BRAIN NATRIURETIC PEPTIDE ALI AHMAD Start: 01-17-2020 COVID-19 AMBULATORY ALI AHMAD Start: 01-17-2020 Basic metabolic pane l calcium total Sancho Causey Work Phone: Start: 01-17-2020 Blood count complete automated Ali F O Ahmad Work Phone: Start: 01-17-2020 Natriuretic peptide Ali F O Ahmad Work Phone: Start: 12-14-2019 NEBULIZER TX INTERMITTENT MANJU AICHHOLZ Start: 12-14-2019 Gluc bld gluc mntr d ev cleared fda spec home use MANJU AICHHOLZ Start: 12-14-2019 BIPAP MANJU AICHH OLZ Start: 12-14-2019 PULSE OXIMETRY, CONTINUOUS MANJU AICHHOLZ Start: 12-14-2019 DME ORDER FOR HOME O XYGEN OP MANJU AICHHOLZ Start: 12-14-2019 Gluc bld gluc mntr d ev cleared fda spec home use Hussein Sams Work Phone: Start: 12-14-2019 DISCHARGE PATIENT MANJU AICHHOLZ Start: 12-14-2019 SCHEDULE APPOINTMENT NATHANIEL GEE AICHHOLZ Start: 12-14-2019 NEBULIZER TX INTERMITTENT MANJU AICHHOLZ Start: 12-14-2019 Gluc bld gluc mntr d ev cleared fda spec home use MANJU AICHHOLZ Start: 12-14-2019 BIPAP MANJU AICHH OLZ Start: 12-14-2019 HOME O2 EVAL (DESATU RATION SCREEN) MANJU AICHHOLZ Start: 12-14-2019 INITIATE OXYGEN THER APY PROTOCOL MANJU AICHHOLZ Start: 12-14-2019 MDI TREATMENT MANJU AICH NICKY Start: 12-14-2019 PULSE OXIMETRY, CONTINUOUS MANJU AICHHOLZ Start: 12-14-2019 Radiologic exam ches t 2 views MANJU AICHHOLZ Start: 12-14-2019 Gluc bld gluc mntr d ev cleared fda spec home use Hussein Sams Work Phone: Start: 12-14-2019 NEBULIZER TX INTERMITTENT MANJU AICHHOLZ Start: 12-14-2019 Antibody bordetella LIS A AICHHOLZ Start: 12-14-2019 Assay of magnesium MANJU AICHHOLZ Start: 12-14-2019 Basic metabolic pane l calcium total MANJU AICHHOLZ Start: 12-14-2019 BRAIN NATRIURETIC PEPTIDE MANJU AICHHOLZ Start: 12-14-2019 Creatinine blood MANJU A ICHHOLZ Start: 12-14-2019 Radiologic exam ches t 2 views Hussein Sams Work Phone: Start: 12-14-2019 BIPAP MANJU AICHH OLZ Start: 12-14-2019 PULSE OXIMETRY, CONTINUOUS MANJU AICHHOLZ Start: 12-14-2019 Anion gap [Moles/Vol] D josé Alba Work Phone: Start: 12-14-2019 Assay of magnesium Mohs in Ramon Work Phone: Start: 12-14-2019 Basic metabolic pane l calcium total Cyrstal Ramon Work Phone: Start: 12-14-2019 GLOMERULAR FILTRATIO N RATE, ESTIMATED Renea Alba Work Phone: Start: 12-14-2019 Natriuretic peptide Geovany cy C Parth Work Phone: Start: 12-14-2019 INTAKE AND OUTPUT MANJU AICHHOLZ Start: 12-14-2019 BIPAP MANJU AICHH OLZ Start: 12-14-2019 PULSE OXIMETRY, CONTINUOUS MANJU AICHHOLZ Start: 12-14-2019 NEBULIZER TX INTERMITTENT MANJU AICHHOLZ Start: 12-13-2019 BIPAP MANJU AICHH OLZ Start: 12-13-2019 PULSE OXIMETRY, CONTINUOUS MANJU AICHHOLZ Start: 12-13-2019 Gluc bld gluc mntr d ev cleared fda spec home use MANJU AICHHOLZ Start: 12-13-2019 NEBULIZER TX INTERMITTENT MANJU AICHHOLZ Start: 12-13-2019 Gluc bld gluc mntr d ev cleared fda spec home use Hussein B [employer] Phone: Start: 12-13-2019 BIPAP MANJU AICHH OLZ Start: 12-13-2019 PULSE OXIMETRY, CONTINUOUS MANJU AICHHOLZ Start: 12-13-2019 Gluc bld gluc mntr d ev cleared fda spec home use Hussein B [employer] Phone: Start: 12-13-2019 NEBULIZER TX INTERMITTENT MANJU AICHHOLZ Start: 12-13-2019 Gluc bld gluc mntr d ev cleared fda spec home use MANJU AICHHOLZ Start: 12-13-2019 BIPAP MANJU AICHH OLZ Start: 12-13-2019 PULSE OXIMETRY, CONTINUOUS MANJU AICHHOLZ Start: 12-13-2019 RHYTHM STRIP REPORT LIS A AICHHOLZ Start: 12-13-2019 Gluc bld gluc mntr d ev cleared fda spec home use Hussein B [employer] Work Phone: Start: 12-13-2019 NEBULIZER TX INTERMITTENT MANJU AICHHOLZ Start: 12-13-2019 MDI TREATMENT MANJU AICH NICKY Start: 12-13-2019 RHYTHM STRIP REPORT Hpf Scanning Start: 12-13-2019 PALLIATIVE CARE EVAL NATHANIEL GEE AICHHOLZ Start: 12-13-2019 Gluc bld gluc mntr d ev cleared fda spec home use MANJU AICHHOLZ Start: 12-13-2019 BIPAP MANJU AICHH OLZ Start: 12-13-2019 INITIATE OXYGEN THER APY PROTOCOL MANJU AICHHOLZ Start: 12-13-2019 PULSE OXIMETRY, CONTINUOUS MANJU AICHHOLZ Start: 12-13-2019 IP CONSULT TO SOCIAL WORK MANJU AICHHOLZ Start: 12-13-2019 OT EVAL AND TREAT MANJU AICHHOLZ Start: 12-13-2019 PT EVAL AND TREAT MANJU AICHHOLZ Start: 12-13-2019 HOME O2 EVAL (DESATU RATION SCREEN) MANJU AICHHOLZ Start: 12-13-2019 Radiologic exam ches t 2 views MANJU AICHHOLZ Start: 12-13-2019 Gluc bld gluc mntr d ev cleared fda spec home use Hussein B [employer] Phone: Start: 12-13-2019 NEBULIZER TX INTERMITTENT MANJU AICHHOLZ Start: 12-13-2019 Radiologic exam ches t 2 views Hussein Sams Work Phone: Start: 12-13-2019 BIPAP MANJU AICHH OLZ Start: 12-13-2019 PULSE OXIMETRY, CONTINUOUS MANJU AICHHOLZ Start: 12-13-2019 Antibody bordetella LIS A AICHHOLZ Start: 12-13-2019 Assay of magnesium MANJU AICHHOLZ Start: 12-13-2019 Basic metabolic pane l calcium total MANJU AICHHOLZ Start: 12-13-2019 Creatinine blood MNAJU A ICHHOLZ Start: 12-13-2019 Anion gap [Moles/Vol] M ohsin Ramon Work Phone: Start: 12-13-2019 Assay of magnesium Mohs in Ramon Work Phone: Start: 12-13-2019 Basic metabolic pane l calcium total Crystal Ramon Work Phone: Start: 12-13-2019 GLOMERULAR FILTRATIO N RATE, ESTIMATED Crystal Ramon Work Phone: Start: 12-13-2019 INTAKE AND OUTPUT MANJU AICHHOLZ Start: 12-13-2019 BIPAP MANJU AICHH OLZ Start: 12-13-2019 PULSE OXIMETRY, CONTINUOUS MANJU AICHHOLZ Start: 12-13-2019 BRAIN NATRIURETIC PEPTIDE MANJU AICHHOLZ Start: 12-13-2019 NEBULIZER TX INTERMITTENT MANJU AICHHOLZ Start: 12-12-2019 Natriuretic peptide Geovany cy C Parth Work Phone: Start: 12-12-2019 Gluc bld gluc mntr d ev cleared fda spec home use MANJU AICHHOLZ Start: 12-12-2019 BIPAP MANJU AICHH OLZ Start: 12-12-2019 PULSE OXIMETRY, CONTINUOUS MANJU AICHHOLZ Start: 12-12-2019 Gluc bld gluc mntr d ev cleared fda spec home use Husseinjohnny Sams Work Phone: Start: 12-12-2019 NEBULIZER TX INTERMITTENT MANJU AICHHOLZ Start: 12-12-2019 Gluc bld gluc mntr d ev cleared fda spec home use MANJU AICHHOLZ Start: 12-12-2019 BIPAP MANJU AICHH OLZ Start: 12-12-2019 PULSE OXIMETRY, CONTINUOUS MANJU AICHHOLZ Start: 12-12-2019 Gluc bld gluc mntr d ev cleared fda spec home use [employer] Phone: Start: 12-12-2019 NEBULIZER TX INTERMITTENT MANJU AICHHOLZ Start: 12-12-2019 Gluc bld gluc mntr d ev cleared fda spec home use MANJU AICHHOLZ Start: 12-12-2019 BIPAP MANJU AICHH OLZ Start: 12-12-2019 PULSE OXIMETRY, CONTINUOUS MANJU AICHHOLZ Start: 12-12-2019 Gluc bld gluc mntr d ev cleared fda spec home use SYLO[employer] Phone: Start: 12-12-2019 NEBULIZER TX INTERMITTENT MANJU AICHHOLZ Start: 12-12-2019 CATHETER REMOVAL MANJU A ICHHOLZ Start: 12-12-2019 BIPAP MANJU AICHH OLZ Start: 12-12-2019 INITIATE OXYGEN THER APY PROTOCOL MANJU AICHHOLZ Start: 12-12-2019 PULSE OXIMETRY, CONTINUOUS MANJU AICHHOLZ Start: 12-12-2019 NEBULIZER TX INTERMITTENT MANJU AICHHOLZ Start: 12-12-2019 Antibody bordetella LIS A AICHHOLZ Start: 12-12-2019 Assay of magnesium MANJU AICHHOLZ Start: 12-12-2019 Basic metabolic pane l calcium total MANJU AICHHOLZ Start: 12-12-2019 Blood count complete auto&auto difrntl wbc MANJU AICHHOLZ Start: 12-12-2019 Creatinine blood MANJU A ICHHOLZ Start: 12-12-2019 Hemoglobin glycosylated a1c MANJU AICHHOLZ Start: 12-12-2019 Lipid panel MANJU AICHH OLZ Start: 12-12-2019 BIPAP MANJU AICHH OLZ Start: 12-12-2019 PULSE OXIMETRY, CONTINUOUS MANJU AICHHOLZ Start: 12-12-2019 Anion gap [Moles/Vol] M ohsin Ramon Work Phone: Start: 12-12-2019 Assay of magnesium Mohs in Ramon Work Phone: Start: 12-12-2019 Basic metabolic pane l calcium total Crystal Navarro Work Phone: Start: 12-12-2019 Blood count complete auto&auto difrntl wbc Crystal Navarro Work Phone: Start: 12-12-2019 GLOMERULAR FILTRATIO N RATE, ESTIMATED Crystal Navarro Work Phone: Start: 12-12-2019 Hemoglobin glycosylated a1c Adriano Durand Work Phone: Start: 12-12-2019 Lipid panel Crystal orozco Work Phone: Start: 12-12-2019 DAILY WEIGHTS MANJU AICH NICKY Start: 12-12-2019 INTAKE AND OUTPUT MANJU AICHHOLZ Start: 12-12-2019 BIPAP MANJU AICHH OLZ Start: 12-12-2019 PULSE OXIMETRY, CONTINUOUS MANJU AICHHOLZ Start: 12-12-2019 Gluc bld gluc mntr d ev cleared fda spec home use MANJU AICHHOLZ Start: 12-12-2019 NEBULIZER TX INTERMITTENT MANJU AICHHOLZ Start: 12-11-2019 Gluc bld gluc mntr d ev cleared fda spec home use Adriano Durand Work Phone: Start: 12-11-2019 BIPAP MANJU AICHH OLZ Start: 12-11-2019 PULSE OXIMETRY, CONTINUOUS MANJU AICHHOLZ Start: 12-11-2019 NEBULIZER TX INTERMITTENT MANJU AICHHOLZ Start: 12-11-2019 Blood gases any comb ination ph pco2 po2 co2 hco3 MANJU AICHHOLZ Start: 12-11-2019 BIPAP MANJU AICHH OLZ Start: 12-11-2019 PULSE OXIMETRY, CONTINUOUS MANJU AICHHOLZ Start: 12-11-2019 BLOOD GAS, ARTERIAL Erickevin trudi Durand Work Phone: Start: 12-11-2019 NEBULIZER TX INTERMITTENT MANJU AICHHOLZ Start: 12-11-2019 INCENTIVE SPIROMETRY NURSING MANJU AICHHOLZ Start: 12-11-2019 BIPAP MANJU AICHH OLZ Start: 12-11-2019 DIET CARDIAC MANJU AICHH OLZ Start: 12-11-2019 BIPAP MANJU AICHH OLZ Start: 12-11-2019 PULSE OXIMETRY, CONTINUOUS MANJU AICHHOLZ Start: 12-11-2019 NEBULIZER TX INTERMITTENT MANJU AICHHOLZ Start: 12-11-2019 Blood gases any comb ination ph pco2 po2 co2 hco3 MANJU AICHHOLZ Start: 12-11-2019 INITIATE OXYGEN THER APY PROTOCOL MANJU AICHHOLZ Start: 12-11-2019 PULSE OXIMETRY, CONTINUOUS MANJU AICHHOLZ Start: 12-11-2019 Ecg routine ecg w/le ast 12 lds w/i&r MANJU AICHHOLZ Start: 12-11-2019 EKG REPORT MANJU AICHH OLZ Start: 12-11-2019 STRICT INTAKE AND OUTPUT MANJU AICHHOLZ Start: 12-11-2019 NEBULIZER TX INTERMITTENT MANJU AICHHOLZ Start: 12-11-2019 BIPAP MANJU AICHH OLZ Start: 12-11-2019 Assay of troponin quantitative MANJU AICHHOLZ Start: 12-11-2019 BLOOD GAS, ARTERIAL Kyl e Patricia Durand Work Phone: Start: 12-11-2019 Radiologic exam ches t single view MANJU AICHHOLZ Start: 12-11-2019 Ecg routine ecg w/le ast 12 lds trcg only w/o i&r Adriano Durand Work Phone: Start: 12-11-2019 EKG REPORT Hpf Scanni ng Start: 12-11-2019 Assay of troponin quantitative Crystal Navarro Work Phone: Start: 12-11-2019 Antibody bordetella LIS A AICHHOLZ Start: 12-11-2019 Assay of magnesium MANJU AICHHOLZ Start: 12-11-2019 Basic metabolic pane l calcium total MANJU AICHHOLZ Start: 12-11-2019 BRAIN NATRIURETIC PEPTIDE MANJU AICHHOLZ Start: 12-11-2019 Creatinine blood MANJU A ICHHOLZ Start: 12-11-2019 CONTRA TO SVETLANA INH / ARB MANJU AICHHOLZ Start: 12-11-2019 IP CONSULT TO HEART FAILURE NURSE/COORDINATOR MANJU AICHHOLZ Start: 12-11-2019 PLACE INTERMITTENT PNEUMATIC COMPRESSION DEVICE MANJU AICHHOLZ Start: 12-11-2019 ELEVATE HOB MANJU PISANO Start: 12-11-2019 FULL CODE MANJU PISANO Start: 12-11-2019 INITIATE OXYGEN THER APY PROTOCOL MANJU CANDELARIAHOLDexter Start: 12-11-2019 INTAKE AND OUTPUT MANJU CANDELARIAHOLZ Start: 12-11-2019 IP CONSULT TO CARDIOLOGY MANJU CANDELARIAHOLDexter Start: 12-11-2019 IP CONSULT TO DIETITIAN MANJU CANDELARIAHOLDexter Start: 12-11-2019 NOTIFY PHYSICIAN (SPECIFY) MANJU PRESTON Start: 12-11-2019 PULSE OXIMETRY, CONTINUOUS MANJU PRESTON Start: 12-11-2019 TELEMETRY MONITORING NATHANIEL CANDELARIAHOLDexter Start: 12-11-2019 VITAL SIGNS MANJU PISANO Start: 12-11-2019 Radiologic exam ches t single view Crystal Ramon Work Phone: Start: 12-11-2019 IP CONSULT TO [facility] MANJU PRESTON Start: 12-11-2019 Anion gap [Moles/Vol] M ohsin Ramon Work Phone: Start: 12-11-2019 Assay of magnesium Mohs in Ramon Work Phone: Start: 12-11-2019 Assay of troponin quantitative Crystal Ramon Work Phone: Start: 12-11-2019 Basic metabolic pane l calcium total Crystal Ramon Work Phone: Start: 12-11-2019 GLOMERULAR FILTRATIO N RATE, ESTIMATED Crystal Ramon Work Phone: Start: 12-11-2019 Natriuretic peptide Moh sin Ramon Work Phone: Start: 12-11-2019 PATIENT STATUS (DIRECT) MANJU PRESTON Start: 12-11-2019 TELEMETRY MONITORING NATHANIEL SA TEAGANHOLZ Start: 09-14-2019 Ct angio abd&plvis c ntrst mtrl w/wo cntrst img MANJU POLKHHOLZ Start: 09-14-2019 Ct angiography chest w/contrast/noncontrast MANJU POLKHHOLZ Start: 09-14-2019 Ct angio abd&plvis c ntrst mtrl w/wo cntrst img Ritchie M Brumfield Work Phone: Start: 09-14-2019 Ct angiography chest w/contrast/noncontrast Ritchie Keven Brumfield Work Phone: Start: 09-01-2019 ECHOCARDIOGRAM TRANSESOPHAGEAL Jean Borrero Work Phone: Start: 09-01-2019 End: 09-01-2019 TECHNICAL WRITER REPORT Hpf Scanning Start: 09-01-2019 DIAGNOSTIC CARDIAC C ATH LAB PROCEDURE Jean Borrero Work Phone: Start: 08-29-2019 Assay of magnesium Nicol nicole Abbasi Work Phone: Start: 08-29-2019 Basic metabolic pane l calcium total Peggy A Ayleen Work Phone: Start: 08-29-2019 Natriuretic peptide Yasmeen Orozco [employer] Work Phone: Start: 08-28-2019 Assay of magnesium Nicol rivera A Ayleen Work Phone: Start: 08-28-2019 Basic metabolic pane l calcium total Peggy A Ayleen Work Phone: Start: 08-27-2019 Assay of magnesium Nicol nicole A Ayleen Work Phone: Start: 08-27-2019 Basic metabolic pane l calcium total Peggy A Ayleen Work Phone: Start: 08-27-2019 Blood count complete auto&auto difrntl wbc Dipakkumar P Casey Work Phone: Start: 08-27-2019 IMMATURE PLATELET FRACTION Peggy A Ayleen Work Phone: Start: 08-27-2019 Lipid panel Peggy A Ayleen Work Phone: Start: 08-26-2019 Assay of free thyroxine Peggy A Ayleen Work Phone: Start: 08-26-2019 Assay of thyroid stimulating hormone tsh Peggy Abbasi Work Phone: Start: 08-26-2019 Assay of troponin quantitative Andrea Downsese Work Phone: Start: 08-26-2019 Urinalysis microscopic only Andrea Bah Work Phone: Start: 08-26-2019 Urnls dip stick/tabl et rgnt auto w/o microscopy Andrea Bah Work Phone: Start: 08-26-2019 Radiologic exam ches t single view Andrea Bah Work Phone: Start: 08-26-2019 Ecg routine ecg w/le ast 12 lds i&r only Andrea Bah Work Phone: Start: 08-26-2019 EKG REPORT Hpf Scanni ng Start: 08-26-2019 COVID-19 Peggynicole Abbasi Work Phone: Start: 08-26-2019 Assay of troponin quantitative Andrea Bah Work Phone: Start: 08-26-2019 Blood count complete auto&auto difrntl wbc Andrea Bah Work Phone: Start: 08-26-2019 IMMATURE PLATELET FRACTION Andrea Bah Work Phone: Start: 08-26-2019 Natriuretic peptide Amrit Bah Work Phone: Start: 07-21-2019 HOME O2 EVAL (DESATU RATION SCREEN) Sancho Causey Work Phone: Start: 07-21-2019 Basic metabolic pane l calcium total Sancho Causey Work Phone: Start: 07-20-2019 Echo tthrc r-t 2d w/wom-mode compl spec&colr d Jean Borrero Work Phone: Start: 07-20-2019 Basic metabolic pane l calcium total Sanhco Causey Work Phone: Start: 07-19-2019 Basic metabolic pane l calcium total Sancho Causey Work Phone: Start: 07-18-2019 PULSE OXIMETRY SPOT CHECK Sancho Causey Work Phone: Start: 07-18-2019 Assay of troponin quantitative Mayra Petit Work Phone: Start: 07-18-2019 Ct thorax w/contrast material Mayra Petit Work Phone: Start: 07-18-2019 Ecg routine ecg w/le ast 12 lds i&r only Mayra Petit Work Phone: Start: 07-18-2019 EKG REPORT Hpf Scanni ng Start: 07-18-2019 Assay of troponin quantitative Mayra Petit Work Phone: Start: 07-18-2019 Basic metabolic pane l calcium total Mayra Petit Work Phone: Start: 07-18-2019 Blood count complete automated Mayra Petit Work Phone: Start: 07-18-2019 Fibrin dgradj produc ts d-dimer quantitative Mayra Petit Work Phone: Start: 07-18-2019 Natriuretic peptide Chr diana Petit Work Phone: Start: 07-18-2019 Radiologic exam ches t single view Mayra Amari Petit Work Phone: Start: 12-13-2018 FLUOROSCOPY OF MULTI PLE CORONARY ARTERIES USING OTH CONTRAST DAKOTA Mike MOKEIRYRBEL Start: 12-13-2018 MEASURE CARDIAC SAMP L \T\ PRESSURE, BILATERAL, PERC DAKOTA V MOUKARBEL Start: 12-12-2018 MEASURE OF ARTERIAL SATURATION, PERIPHERAL, PERC APPROACH BLADIMIR BRUMFIELD Plan of Treatment Date Care Activity Detail Author Start: 01-25-2030 Screening for malignant neoplasm of colon Colon cancer screen colonoscopy [employer]- [place], [place] Start: 03-14-2021 End: 03-14-2021 Patient encounter procedure 03/14/2021 Office Visit Cardiology Anika Stone MD [address] [facility] [place] [address] [facility] Start: 02-16-2021 Creatinine measurement Creatinine monitoring [employer] Work Phone: Start: 02-16-2021 Potassium monitoring Potassium monitoring [employer] Phone: Start: 02-14-2021 Creatinine [facility] [place] [place] Start: 02-14-2021 Potassium monitoring Potassium monitoring [facility] [place] Start: 02-01-2021 Creatinine measurement [facility], [place] Start: 02-01-2021 Potassium monitoring Potassium monitoring [place], [place] Start: 01-29-2021 HbA1c (Bld) [Mass fraction] A1C test (Diabetic or Prediabetic) [place], [place] Start: 01-29-2021 Hemoglobin A1c measurement A1C test (Diabetic or Prediabetic) [facility] [employer] Phone: Start: 01-29-2021 Statin Therapy Statin Therapy [place], [place] Start: 01-25-2021 Creatinine measurement Creatinine monitoring [facility] [employer] [place] Start: 01-25-2021 Potassium monitoring Potassium monitoring [place], [place] Start: 01-09-2021 Influenza vaccination Flu vaccine (Season Ended) [facility] [employer] Phone: Start: 12-13-2020 Creatinine measurement Creatinine monitoring [facility] [place] Start: 12-13-2020 Potassium monitoring Potassium monitoring [place], [place] Start: 12-12-2020 Creatinine measurement Creatinine monitoring [facility] [place] Start: 12-12-2020 Potassium monitoring Potassium monitoring [place], [place] Start: 12-11-2020 HbA1c (Bld) [Mass fraction] A1C test (Diabetic or Prediabetic) [place], [place] Start: 12-11-2020 Lipid panel Lipid screen [place], [place] Start: 11-06-2020 End: 11-06-2020 Nursing evaluation of patient and report 11/06/2020 Nurse Only Cardiology [facility] Start: 10-10-2020 End: 10-10-2020 Nursing evaluation of patient and report 10/10/2020 Nurse Only Cardiology [facility] Start: 10-02-2020 End: 10-02-2020 Nursing evaluation of patient and report 10/02/2020 Nurse Only Cardiology [facility] Start: 09-05-2020 Annual Wellness Visit (AWV) Annual Wellness Visit (AWV) [facility] Work Phone: Start: 08-28-2020 Creatinine measurement Creatinine monitoring [facility], ERIC Start: 08-28-2020 Potassium monitoring Potassium monitoring [facility] [place], ERIC Start: 08-27-2020 Creatinine monitoring Creatinine monitoring [facility] [place] , ERIC Start: 08-27-2020 Potassium monitoring Potassium monitoring [facility], ERIC Start: 08-26-2020 Lipid panel Lipid screen [facility] [place], [place]IC Start: 08-26-2020 Lipid screen Lipid screen [facility], ERIC Start: 07-25-2020 End: 01-26-2021 FL SMALL BOWEL FOLLOW THROUGH ONLY FL SMALL BOWEL FOLLOW THROUGH ONLY Imaging Routine Anemia, unspecified type Expected: 07/25/2020, Expires: 01/26/2021 [facility] Comment on above: Expected: 07/25/2020, Expires: Start: 07-19-2020 Creatinine monitoring Creatinine monitoring [facility] , ERIC Start: 07-19-2020 Potassium monitoring Potassium monitoring [facility], ERIC Start: 05-01-2020 End: 05-01-2020 Nurse Only 05/01/2020 Nurse Only Cardiology [facility] Start: 04-19-2020 End: 04-19-2020 Office Visit 04/19/2020 Office Visit Cardiology Anika Stone MD [address] [place] [address] [place] [address] [facility] Start: 03-27-2020 End: 03-27-2020 Nurse Only 03/27/2020 Nurse Only Cardiology [facility] Start: 02-26-2020 End: 03-28-2020 XR CHEST STANDARD (2 VW) XR CHEST STANDARD (2 VW) Imaging Routine Acute on chronic diastolic HF (heart failure) (HCC) Expected: 02/26/2020, Expires: 03/28/2020 [facility] Comment on above: Expected: 02/26/2020, Expires: Start: 02-21-2020 End: 02-21-2020 Nurse Only 02/21/2020 Nurse Only Cardiology [facility] Start: 02-20-2020 End: 02-16-2021 Basic metabolic 2000 panel Basic Metabolic Panel Lab Routine Acute on chronic combined systolic and diastolic congestive heart failure (HCC) [place] (acute kidney injury) (HCC) Expected: 02/20/2020, Expires: 02/16/2021 [facility] [place] Comment on above: Expected: 02/20/2020, Expires: 1 Start: 02-10-2020 End: 02-02-2021 Basic metabolic 2000 panel Basic Metabolic Panel Lab Routine LIBERTY (acute kidney injury) (HCC) Hyperkalemia Expected: 02/10/2020, Expires: 02/02/2021 [place] Comment on above: Expected: 02/10/2020, Expires: 1 Start: 02-09-2020 End: 02-09-2020 Office Visit 02/09/2020 Office Visit Cardiology Anika [place] [address] [facility] Start: 02-09-2020 End: 01-26-2021 CBC With Auto Differential CBC With Auto Differential Lab Routine Anemia, unspecified type Expected: 02/09/2020, Expires: 01/26/2021 [place] Comment on above: Expected: 02/09/2020, Expires: 1 Start: 02-03-2020 End: 02-26-2020 Hemoglobin and Hematocrit, Blood Hemoglobin and Hematocrit, Blood Lab Routine Anemia, unspecified type Expected: 02/03/2020, Expires: 02/26/2020 [place] Comment on above: Expected: 02/03/2020, Expires: 0 Start: 01-25-2020 End: 01-25-2020 Appointment 01/25/2020 Appointment IP Unit [facility] Interventional 2E Start: 01-10-2020 Influenza vaccination Flu vaccine (#1) [place] Start: 12-30-2019 End: 12-30-2019 Office Visit 12/30/2019 Office Visit Cardiology Anika Stone MD [address] [place] [address] [facility] Start: 12-21-2019 End: 12-13-2020 Basic metabolic 2000 panel Basic Metabolic Panel Lab Routine Acute on chronic diastolic HF (heart failure) ([facility]) Expected: 12/21/2019, Expires: 12/13/2020 [facility] ERIC Comment on above: Expected: 12/21/2019, Expires: Start: 11-17-2019 End: 11-17-2019 Office Visit 11/17/2019 Office Visit Cardiology Ritchie Brumfield MD [address] [address] [phone] [facility] Start: 09-26-2019 End: 09-26-2019 Office Visit 09/26/2019 Office Visit Cardiology Jean Borrero MD [address] [place] [address] [phone] [facility] Start: 09-06-2019 End: 09-06-2019 Office Visit 09/06/2019 Office Visit Cardiology Jean Borrero MD [address] [place] [address] [phone] [facility] Start: 09-02-2019 End: 09-02-2019 Virtual Visit 09/02/2019 Virtual Visit Cardiology Ritchie Brumfield MD [address] [address] [phone] [facility] Start: 09-01-2019 End: 09-01-2019 Appointment [facility] Echocardi[facility] y Start: 08-04-2019 End: 07-20-2020 Basic metabolic 2000 panel Basic Metabolic Panel Lab Routine Acute on chronic diastolic HF (heart failure) (HCC) Expected: 08/04/2019, Expires: 07/20/2020 [facility] ERIC Comment on above: Expected: 08/04/2019, Expires: Start: 07-18-2019 Annual Wellness Visit (AWV) Annual Wellness Visit (AWV) [place] Start: 10-15-2012 Lipid screen Lipid screen [place] Start: 01-01-2008 Breast cancer screen Breast cancer screen [place] Start: 01-01-2008 Colon cancer screen colonoscopy Colon cancer screen colonoscopy [place] Start: 01-01-2008 Screening for malignant neoplasm of breast Breast cancer screen [place] Start: 01-01-2008 Screening for malignant neoplasm of colon Colon cancer screen colonoscopy [place] Start: 01-01-2008 Shingles Vaccine (1 of 2) Shingles Vaccine (1 of 2) [place] Start: 1997 Diabetes screen Diabetes screen [place] Start: 1978 Cervical cancer screen Cervical cancer screen [place] Start: 1978 Screening for malignant neoplasm of cervix Cervical cancer screen [place] Start: 1976 DTaP/Tdap/Td vaccine (1 - Tdap) DTaP/Tdap/Td vaccine (1 - Tdap) [place] Start: 01-01-1976 Diabetic microalbuminuria test Diabetic microalbuminuria test [place] Start: 1972 HIV screen HIV screen [place] Start: 1972 HIV screening HIV screen [place] Start: 1969 COVID-19 Vaccine (1) COVID-19 Vaccine (1) [facility] Phone: Start: 01-01-1968 Diabetic foot examination Diabetic foot exam [place] Start: 01-01-1968 Diabetic retinal exam Diabetic retinal exam [place], [place] Start: 01-01-1964 Pneumococcal 0-64 years Vaccine (1 of 1 - PPSV23) Pneumococcal 0-64 years Vaccine (1 of 1 - PPSV23) [place] Start: 01-01-1964 Pneumococcal 0-64 years Vaccine (1 of 2 - PPSV23) Pneumococcal 0-64 years Vaccine (1 of 2 - PPSV23) [facility] Phone: Start: 1957 Hepatitis C screen Hepatitis C screen [facility] [place]IC Start: 1957 Hepatitis C screening Hepatitis C screen [facility] [place] [facility] Arndt Comment on above: TID until discontinued starting 08/26/19 20 As Needed until disc ontinued starting 08/26/2019 As Needed until disc ontinued starting 12/13/2019 End: 08-31-2019 Basic metabolic 2000 panel Basic Metabolic Panel Lab Routine Daily for 5 Days starting 08/27/2019 until 08/31/2019, 3 completed [facility] [place] Comment on above: Daily for 5 Days starting 08/27/2019 unt il 08/31/2019, 3 completed Basic metabolic 2000 panel [facility] above: Daily until discontinued starting 2019, 3 completed Daily until disconti nued starting 01/31/2020, 4 completed Daily until disconti nued starting 02/14/2020, 4 completed End: 12-15-2019 Basic metabolic 2000 panel Basic Metabolic Panel Lab Routine Daily for 5 Days starting 12/11/2019 until 12/15/2019, 4 completed [facility] [place] Comment on above: Daily for 5 Days starting 12/11/2019 unt il 12/15/2019, 4 completed BIPAP [facility] ERIC Arndt Comment on above: Every 4hr until discontinued starting Every 4hr until disc ontinued starting 01/30/2020 End: 09-04-2019 Brain Natriuretic Peptide Brain Natriuretic Peptide Lab Routine Every Third Day for 3 Occurrences starting 08/29/2019 until 09/04/2019, 1 completed [facility] [place] Comment on above: Every Third Day for 3 Occurrences starti ng 08/29/2019 until 09/04/2019, 1 completed End: 02-15-2020 Catheterization and angiography procedure details panel Cardiac Catheterization Cardiac Cath Routine One Time for 1 Occurrences starting 02/15/2020 until 02/15/2020 [facility] Comment on above: One Time for 1 Occurrences starting 11/2019 until 02/15/2020 CBC CBC Lab Routine Every Other Day until discontinued starting 02/16/2020 [facility] [place] Comment on above: Every Other Day until discontinued start ing 02/16/2020 CBC auto differential CBC auto d ifferential Lab Routine Daily until discontinued starting 02/14/2020, 4 completed [facility] [place] Comment on above: Daily until discontinued starting 2019, 4 completed Continuous pulse oximetry [facility] [place] Comment on above: Every 4hr until discontinued starting Every 4hr until disc ontinued starting 02/14/2020 End: 01-17-2020 COVID-19 Ambulatory COVID-19 Ambulatory Lab Routine Screening procedure 1 Occurrences starting 01/17/2020 until 01/17/2020 [facility] [place] Comment on above: 1 Occurrences starting 01/17/2020 until 01/17/2020 COVID-19 Ambulatory COVID-19 Amb ulatory Lab Routine Screening procedure 01/17/2020 2:22 PM EDT [facility] [place] Culture, Blood 1 Culture, Blood 1 Microbiology STAT 01/30/2020 11:05 AM EDT [place] Culture, Blood 2 Culture, Blood 2 Microbiology STAT 01/31/2020 12:21 AM EDT [facility] [place] End: 01-25-2020 Diagnostic endoscopic examination on colon Endoscopy, colon, diagnostic GI Routine One Time for 1 Occurrences starting 01/25/2020 until 01/25/2020 [facility] [place] Comment on above: One Time for 1 Occurrences starting 01/09 until 01/25/2020 End: 01-31-2020 Electrophoresis Protein, Serum without Reflex to Immunofixation Electrophoresis Protein, Serum without Reflex to Immunofixation Lab Routine Tomorrow AM for 1 Occurrences starting 01/31/2020 until 01/31/2020 [facility] [place] Comment on above: Tomorrow AM for 1 Occurrences starting 0 01/31/2020 until 01/31/2020 Electrophoresis Prot ein, Serum without Reflex to Immunofixation Electrophoresis Protein, Serum without Reflex to Immunofixation Lab Routine 01/31/2020 4:08 AM EDT [facility] [place] End: 09-01-2019 End Tidal CO2 Continuous End Tidal CO2 Continuous Respiratory Care Routine Continuous until discontinued starting 09/01/2019 [facility] [place] Comment on above: Continuous until discontinued starting 0 09/01/2019 Hemoglobin and hematocrit, blood Hemoglobin and hematocrit, blood Lab Routine Every 8 Hours (Lab) until discontinued starting 01/25/2020, 6 completed [place] Comment on above: Every 8 Hours (Lab) until discontinued s tarting 01/25/2020, 6 completed Home O2 eval (desaturation screen) Home O2 eval (desaturation screen) Respiratory Care Routine Daily until discontinued starting 12/13/2019 [facility] Comment on above: Daily until discontinued starting 2019 End: 02-15-2020 Initiate Adult NIVProtocol Initiate Adult NIVProtocol Respiratory Care Routine Continuous until discontinued starting 02/15/2020 [facility] Comment on above: Continuous until discontinued starting 1 Initiate Oxygen Ther apy Protocol [facility] Comment on above: Daily until discontinued starting 2019 Daily until disconti nued starting 09/01/2019 Daily until disconti nued starting 07/19/2019 Ionized Calcium Ionized Calcium Lab Routine Daily until discontinued starting 02/14/2020, 4 completed [facility] Comment on above: Daily until discontinued starting 2019, 4 completed End: 08-31-2019 Magnesium [Mass/Vol] Magnesium Lab Routine Daily for 5 Days starting 08/27/2019 until 08/31/2019, 3 completed [facility] Comment on above: Daily for 5 Days starting 08/27/2019 unt il 08/31/2019, 3 completed End: 12-15-2019 Magnesium [Mass/Vol] Magnesium Lab Routine Daily for 5 Days starting 12/11/2019 until 12/15/2019, 4 completed [facility] Comment on above: Daily for 5 Days starting 12/11/2019 unt il 12/15/2019, 4 completed Magnesium [Mass/Vol] Magnesium L ab Routine Daily until discontinued starting 02/14/2020, 4 completed [facility] Comment on above: Daily until discontinued starting 2019, 4 completed MDI Treatment [facility] [place] Comment on above: Daily until discontinued starting 2019 Daily until disconti nued starting 01/27/2020 Daily until disconti nued starting 01/30/2020 Daily until disconti nued starting 02/16/2020 Nasal Cannula Oxygen Nasal Cannu la Oxygen Respiratory Care Routine Daily until discontinued starting 08/28/2019 [facility] Comment on above: Daily until discontinued starting 2019 [facility] above: 0600, 1000, 1400, 1800, 2200 until disco ntinued starting 12/11/2019 Every 6hr As Needed until discontinued starting 12/13/2019 Every 6hr As Needed until discontinued starting 02/16/2020 Oxygen therapy Initiate Oxygen Therapy Protocol Respiratory Care Routine Daily until discontinued starting 12/11/2019 [facility] Comment on above: Daily until discontinued starting 2019 Oxygen therapy [[facility]] [facility] Comment on above: Daily until discontinued starting 2019 Daily until disconti nued starting 01/30/2020 Daily until disconti nued starting 02/15/2020 Phosphate [Mass/Vol] Phosphorus Lab Routine Daily until discontinued starting 02/14/2020, 4 completed [facility] [place] Comment on above: Daily until discontinued starting 2019, 4 completed [facility]: As Needed until discontinued starting BID until discontinu ed starting 12/12/2019, 6 completed 4X Daily (AC & HS) u ntil discontinued starting 01/30/2020, 15 completed As Needed until disc ontinued starting 01/30/2020 End: 02-15-2020 PREPARE RBC (CROSSMATCH), 2 Units PREPARE RBC (CROSSMATCH), 2 Units Blood Bank STAT Once for 1 Occurrences starting 02/15/2020 until 02/15/2020 [facility] [place] Comment on above: Once for 1 Occurrences starting 02/15/20 20 until 02/15/2020 Protime-INR Protime-INR Lab STAT As Needed until discontinued starting 09/01/2019 [facility] [place] Comment on above: As Needed until discontinued starting End: 09-01-2019 Pulse Oximetry Spot Check Pulse Oximetry Spot Check Respiratory Care Routine One Time for 1 Occurrences starting 09/01/2019 until 09/01/2019 [facility] Comment on above: One Time for 1 Occurrences starting 08/10 until 09/01/2019 Pulse oximetry, continuous Pulse oximetry, continuous Respiratory Care Routine Every 4hr until discontinued starting 09/01/2019 [facility] Comment on above: Every 4hr until discontinued starting Respiratory care evaluation only Respiratory care evaluation only Respiratory Care Routine As Needed until discontinued starting 02/15/2020 [place] Comment on above: As Needed until discontinued starting Immunizations Immunization Date Immunization Notes Care Provider Viviana aguirre 03-14-2019 influenza virus vacc ine, unspecified formulation Mayra Petit [place], [place] Payers Date Payer Category Payer Medicaid MEDICAID [facility] DEPT OF JOB xxxxxxxxxxxx 2019-Present [phone] [address] [place] [address] xxxxxxxxxxxx [id number] 2019 Medicare MEDICARE MEDICAR E PART A AND B xxxxxxxxxxx 2019-Present [phone] [address] [address] [place] [address] xxxxxxxxxxx [id number] 2019 Medicare [id number] 2014 Medicare [id number] 1959 Medicaid [id number] 1959 Medicare [id number] 1959 Self-pay [id number] 1957 Unknown [id number] 1957 Unknown [id number] [id number] 1957 Unknown [id number] [id number] 1957 Unknown [id number] 2.16.840.1.693949.3.579.2.93 1957 Unknown [id number] 2.16.840.1.282731.3.579.2.93 1957 Unknown [id number] 2.16.840.1.790044.3.579.2.93 1957 Unknown [id number] 2.16.840.1.925691.3.579.2.175 1957 Unknown [id number] 2.16.840.1.311792.3.579.2.173 1957 Unknown [id number] 2.16.840.1.751870.3.579.2.173 1957 Unknown [id number] 2.16.840.1.474561.3.579.2.173 1957 Unknown [id number] 2.16.840.1.606838.3.579.2.173 1957 Unknown [id number] 2.16.840.1.616289.3.579.2.593 1957 Unknown [id number] 2.16.840.1.638751.3.579.2.593 1957 Unknown [id number] 2.16.840.1.668653.3.579.2.593 1957 Unknown [id number] 2.16.840.1.650255.3.579.2.593 1957 Unknown [id number] 2.16.840.1.853692.3.579.2.593 1957 Unknown [id number] [id number] 1957 Unknown [id number] Social History Date Type Detail Facility Start: 08-26-2019 End: 09-04-2020 Tobacco smoking status NHIS Former smoker [place], [place] History of tobacco use Cigarette Smoker [place], [place] Start: 08-26-2019 End: 09-04-2020 Cigarettes smoked current (pack per day) - Reported ERIC Leos Start: 08-26-2019 End: 09-04-2020 Alcohol intake Ex-drinker (finding) Reynaldo Leos Y Start: 08-26-2019 Tobacco Comment quit jun 2019 ERIC Leos Start: 1955 Sex Assigned At Not on file M ERIC Sandoval Exposure to SARS-CoV -2 (event) Unable to assess ERIC Leos Start: 07-19-2019 Tobacco smoking stat [facility] Current every day smoker ERIC Leos Start: 07-19-2019 Tobacco Comment 40 year smoker ERIC Leos Start: 11-07-2019 End: 09-04-2020 Tobacco use and exposure Never used [facility] [facility] HERIC Exposure to SARS-CoV -2 (event) Not sure ERIC Leos History of Present illness Narrative 09-28-2020 Radha Camarillo - 09/28/2020 3:00 PM EDT Note Date & Type Note Facility 09-28-2020 History of Present illness Narrative Explained policies and procedures of an echocardiogram/doppler study. documented in this encounter [employer] Phone: Evaluation note Note Date & Type Note Facility Evaluation note Diagnosis Chronic diastolic congestive heart failure (HCC) Chronic diastolic heart failure Severe aortic stenosis Aortic valve disorders S/P TAVR (transcatheter aortic valve replacement) Coronary artery disease involving chippewa-cree coronary artery of chippewa-cree heart without angina pectoris S/P angioplasty with stent Postsurgical percutaneous transluminal coronary angioplasty status PAF (paroxysmal atrial fibrillation) (HCC) Atrial fibrillation documented in this encounter [employer] Phone: Evaluation note Note Date & Type Note Facility Evaluation note Diagnosis Chronic diastolic congestive heart failure (HCC) Chronic diastolic heart failure Severe aortic stenosis Aortic valve disorders S/P TAVR (transcatheter aortic valve replacement) Coronary artery disease involving chippewa-cree coronary artery of chippewa-cree heart without angina pectoris S/P angioplasty with stent Postsurgical percutaneous transluminal coronary angioplasty status PAF (paroxysmal atrial fibrillation) (HCC) Atrial fibrillation documented in this encounter [employer] Phone: Hospital Course Note MR#: [id number] [facility] Pt. Name: Samreen Dawson Admitted: 12/12/2018 Discharged: 12/17/2018 Date of : 1955 Physician: Bladimir Brumfield MD DISCHARGE SUMMARY DISCHARGING PHYSICIAN: Bladimir Brumfield MD. CONSULTANTS: 1. Cardiology. 2. Cardiothoracic Surgery. 3. Pulmonary. PROCEDURES: Cardiac catheterization. DISCHARGE DIAGNOSES: 1. Severe aortic stenosis. 2. New onset heart failure with reduced ejection fraction and diastolic dysfunction. 3. Coronary artery disease, status post PCI many years ago. 4. Chronic obstructive pulmonary disease exacerbation. 5. Left ICA stenosis. 6. Essential hypertension. 7. Diabetes mellitus type 2. 8. Hyperlipidemia. 9. History of HOCM, status post alcohol ablation and ICD. HPI/BRIEF COURSE: A 62-year-old female with past medical history of HOCM, status post alcohol septal ablation and ICD; CAD, status post PCI (in the late 90s); severe , came in with shortness of breath and intermittent chest pain. The patie (more content not included)... Discharge Instructions * Discharge Instr - Diet* Peggy Abbasi APRN - CNP - 08/29/2019 11:39 AM EDT ? Good nutrition is important when healing from an illness, injury, or surgery. Follow any nutrition recommendations given to you during your hospital stay. ? If you were given an oral nutrition supplement while in the hospital, continue to take this supplement at home. You can take it with meals, in-between meals, and/or before bedtime. These supplements can be purchased at most local grocery stores, pharmacies, and chain [employer]. ? If you have any questions about your diet or nutrition, call the hospital and ask for the dietitian. * Discharge Instr - Other Orders* Peggy Abbasi APRN - CNP - 08/29/2019 11:40 AM EDT No more than 1.5 Liters of fluid to be consumed a day. * Additional Instructions* Angelica Payne RN - 08/29/2019 ARIA and possible cardiac cath scheduled for 1 pm on . Please arrive by 12 pm at [facility] register. Nothing to eat or drink for 6 hours before. May take medication in morning. Will need a ride home. * Attachments The following attachments cannot be sent through Care Everywhere. * Diabetes Diet Meal Planning: General Info ([place]) * Low Sodium Diet ([place]) * Low Sodium: Reading a Food Label ([place]) documented in this encounter* Instructions* Cuca Bangura RN - 09/01/2019 Discharge Instructions for Cardiac Catheterization A cardiac catheterization is a diagnostic test used to evaluate the health of the heart and its blood vessels. The test is done with a thin catheter carefully threaded into your heart from a leg or arm artery. Most likely, you will be allowed to go home the same day as the procedure. Steps to Take at Home: Pain- apply ice to site 15-20 minutes every hour for the first 2 days. ? Showering is okay 24 hours after procedure. ? No soaking in a pool, hot tub, bath tub, or standing water for one week. ? Bleeding (outward or under the skin-hematoma)- apply firm pressure for 10-15 minutes or until thebleeding stops, then call your doctor. If unable to get bleeding stopped, call 911. ? Kidney damage- Call if you urinate less than normal, have swelling or feel puffy, and/or gain 2 or more pounds over night in the first week. If procedure was in ARM: ? You were instructed to keep wrist straight and still for two hours after the procedure. The arm and hand may now be used for normal daily activities except, avoid using the heal of hand while getting up and down from furniture for the first few days. ? Keep affected arm elevated, hand higher than elbow, while pressure dressing in place to decrease swelling. ? Pressure device: Remove in 4 hours as follows: TIME 7:45pm Remove 1 piece of tape at a time, waiting 15 -20 minutes between layers to monitor for bleeding. Ifdressing sticks, place wrist under cool running water to help loosen gauze from site then pat site dry. If hand feels numb, tingly, and/or cold- loosen first 1-2 layers of tape if dressing still in place. If no relief noticed, remove pressure dressing as per above instructions. Seek medical help ifno relief or if dressing already off. ? Wash area with soap and water daily while leaving it open to air, no bandaids or ointment. Diet ? Drink plenty of fluids after the test to flush the x-ray dye from your system. ? Return to your normal diet. ? No alcoholic beverages for 24 hours after the procedure. Physical Activity ? The sedative will make you sleepy. Rest until the effects have worn off. ? Nausea and vomiting from the sedative is normal and usually does not last long. ? Ask your doctor when you will be able to return to work. ? Do not drive, operate machinery, do anything that requires attention to detail, or sign importantpapers for at least 24 hours or until your doctor says it is safe. Avoid heavy lifting, physically demanding activities, and sexual activity for 2- 3 days. Lift nothing over 10 pounds (a gallon of milk is 8 pounds). Do not sit for long periods of time. Try to change positions frequently. Medications Resume taking your normal medicines as advised. Use acetaminophen (Tylenol) for pain relief. (Avoid anti-inflammatory drugs such as- ibuprofen (Advil, Motrin), naproxen sodium (Aleve), Excedrin for a few days) If you had to stop taking these medications before the procedure, ask your doctor when you can resume taking them: ? Anti-inflammatory drugs ? Blood thinners, such as warfarin (Coumadin) If you are taking medicines, follow these general guidelines: ? Take your medicine as directed. Do not change the amount or the schedule. ? Do not stop taking them without talking to your doctor. ? Do not share them. ? Know the side effects and report any to your doctor. ? Some drugs can be dangerous when mixed. Talk to a doctor or pharmacist if you are taking more than one drug. This includes fjmr-tot-efjqeuo medicine and herb or dietary supplements. ? Plan ahead for refills so you don't run out. Follow-up The test results are available right after the procedure. At that point, the doctor will discuss the findings and suggest appropriate treatment options. In some cases, the results can indicate an immediate need for surgery. Schedule a follow-up appointment as directed by your doctor. Call Your Doctor If Any of the Following Occurs ? Signs of infection- including fever and chills ? Redness, swelling, increasing pain, feels warm to touch, red streak forming from site, or any discharge from the procedure site. Call 911 If Any of the Following Occurs Drooping facial muscles ? Changes in vision or speech ? Difficulty walking or using your limbs ? Change in sensation, including numbness, feeling cold, or change in color ? Extreme sweating, nausea or vomiting ? Dizziness or lightheadedness ? Chest pain ? Rapid, irregular heartbeat ? Palpitations ? Cough, shortness of breath, or difficulty breathing ? Weakness or fainting If you think you have an emergency, CALL 911 Sedation for a Medical Procedure: ARIA after-care Instructions Your Care Instructions For a minor procedure, you will get a sedative to help you relax. This drug will make you sleepy. It is usually given in a vein (by IV). A spray was also used to numb the throat. Your throat may feel may feel sore. Common side effects from sedation: You will feel sleepy. Rest until the sedation has worn off. Nausea and vomiting is common and usually does not last long. Feeling tired. Follow-up care is a warren part of your treatment and safety. Be sure to make and go to all appointments, and call your doctor if you are having problems. It's also a good idea to know your test results and keep a list of the medicines you take. How can you care for yourself at home? Activity Don't do anything for 24 hours that requires attention to detail or until the effects of sedation completely wear off. Do not drive or operate any machinery until the medicine wears off and you can think clearly and react easily. Do not drink alcohol for 24 hours after procedure. Rest when you feel tired. Getting enough sleep will help you recover. Diet You can clear liquids two hours after last throat spray, which will be at 5:10pm. You may eat soft foods three hours after throat spray, which will be at 6:10pm. Drink plenty of fluids (unless your doctor tells you not to). Also, try to eat just soft foods for next few days until throat irritation is gone. Don't drink alcohol for 24 hours. Medicines You may use Cepacol lozenges or sucrets for the next few days until throat feels better. Be safe with medicines. Read and follow all instructions on the label. If the doctor gave you a prescription medicine for pain, take it as prescribed. If you are not taking a prescription pain medicine, ask your doctor if you can take an gdgo-yas-ingyznp medicine. If you think your pain medicine is making you sick to your stomach: Take your medicine after meals (unless your doctor has told you not to). Ask your doctor for a different pain medicine. When should you call for help? Call 911 anytime you think you may need emergency care. For example, call if: You have chest pain or pressure. This may occur with: Sweating. Shortness of breath. Nausea or vomiting. Pain that spreads from the chest to the neck, jaw, or one or both shoulders or arms. A fast or uneven pulse. After calling 911, the wire photo operator may tell you to chew 1 adult-strength or 2 to 4 low-dose aspirin. Wait for an ambulance. Do not try to drive yourself. You have signs of a stroke. These may include: Sudden numbness, paralysis, or weakness in your face, arm, or leg, especially on only one side of your body. New problems with walking or balance. Sudden vision changes. Drooling or slurred speech. New problems speaking or understanding simple statements, or feeling confused. A sudden, severe headache that is different from past headaches. You vomit blood or what looks like coffee grounds. You pass maroon or very bloody stools. You passed out (lost consciousness). Call your doctor now or seek immediate medical care if: You feel dizzy or lightheaded, or you feel like you may faint. Your heart rate becomes irregular. You have shortness of breath. You have any unusual bleeding, such as: Bruises or blood spots under the skin. A nosebleed that you cannot stop. Bleeding gums when you brush your teeth. Blood in your urine. Vaginal bleeding when you are not having your period, or heavy period bleeding. Your stools are black and tarlike or have streaks of blood. Watch closely for any changes in your health, and be sure to contact your doctor if: You do not get better as expected. Where can you learn more? Go to [email or web address] and sign in to your [employer] account. Enter G817 in the Search Health Information box to learn more about Sedation for a Medical Procedure: Care Instructions. If you do not have an account, please click on the Sign Up Now link. [employer]. Care instructions adapted under license by [employer]. This care instruction is for use with your licensed healthcare professional. If you have questions about amedical condition or this instruction, always ask your healthcare professional. [employer] disclaims any warranty or liability for your use of this information. Content Version: 10.6.219062; Current as of: January 17, 2014 documented in this encounter* Discharge Instr - Activity* Denisha Acuña RN - 07/21/2019 10:53 AM EDT Activity as tolerated * Discharge Instr - Diet* Denisha Acuña RN - 07/21/2019 10:53 AM EDT ? Good nutrition is important when healing from an illness, injury, or surgery. Follow any nutrition recommendations given to you during your hospital stay. ? If you were given an oral nutrition supplement while in the hospital, continue to take this supplement at home. You can take it with meals, in-between meals, and/or before bedtime. These supplements can be purchased at most local grocery stores, pharmacies, and chain super-stores. ? If you have any questions about your diet or nutrition, call the hospital and ask for the dietitian. Follow a general diet with no added salt * Additional Instructions* Sancho Causey MD - 07/21/2019 BMP lab test in 2 weeks. FU with cardiology and primary provider * Attachments The following attachments cannot be sent through Care Everywhere. * COPD Exacerbation Plan ([place]) * COPD: Breathing Techniques ([place]) * Oxygen Therapy ([place]) documented in this encounter* Instructions* Tonie Graham RN - 12/14/2019 [facility]ment Tomorrow [address] Anderson Make appointment with CHF clinic through primary care physician. Bmp -- have drawn Thursday Proceed with TAVR Salt restriction 2 gm ( 2,000 mg) daily Fluid restriction 2 L daily Weigh yourself daily: Should you gain 2-3 pounds in 1 days time or 3-5 pounds in 2 days time-- callour office ([phone]) for further recommendations documented in this encounter* Discharge Instr - Activity* Davis Campbell, RN - 02/03/2020 10:59 AM EDT As tolerated * Discharge Instr - Diet* Davis Campbell, RN - 02/03/2020 11:00 AM EDT HEART HEALTHY DIET: Low fat, Low sodium * Additional Instructions* Davis Campbell, RN - 02/03/2020 See attached signs and symptoms of heart failure. (fluid overload.) Call Gomez Rodriguez at [phone] if Avoiding Triggers With Heart Failure: Care Instructions Your Care Instructions Triggers are anything that make your heart failure flare up. A flare-up is also called sudden heart failure or acute heart failure. When you have a flare- up, fluid builds up in your lungs, and you have problems breathing. You might need to go to the hospital. By watching for changes in your condition and avoiding triggers, you can prevent heart failure flare-ups. Follow-up care is a warren part of your treatment and safety. Be sure to make and go to all appointments, and call your doctor if you are having problems. It's also a good idea to know your test resultsand keep a list of the medicines you take. How can you care for yourself at home? Watch for changes in your weight and condition Weigh yourself without clothing at the same time each day. Record your weight. Call your doctor if you have sudden weight gain, such as more than 2 to 3 pounds in a day or 5 pounds in a week. (Your doctor may suggest a different range of weight gain.) A sudden weight gain may mean that your heart failure is getting worse. Keep a daily record of your symptoms. Write down any changes in how you feel, such as new shortnessof breath, cough, or problems eating. Also record if your ankles are more swollen than usual and ifyou feel more tired than usual. Note anything that you ate or did that could have triggered these changes. Limit sodium Sodium causes your body to hold on to extra water. This may cause your heart failure symptoms to get worse. People get most of their sodium from processed foods. Fast food and restaurant meals also tend to be very high in sodium. Your doctor may suggest that you limit sodium. Your doctor can tell you how much sodium is right for you. This includes limiting sodium in cooked and packaged foods. Read food labels on cans and food packages. They tell you how much sodium you get in one serving. Check the serving size. If you eat more than one serving, you are getting more sodium. Be aware that sodium can come in forms other than salt, including monosodium glutamate (MSG), sodium citrate, and sodium bicarbonate (baking soda). MSG is often added to food. You can sometimesask for food without MSG or salt. Slowly reducing salt will help you adjust to the taste. Take the salt shaker off the table. Flavor your food with garlic, lemon juice, onion, vinegar, herbs, and spices instead of salt. Do not use soy sauce, steak sauce, onion salt, garlic salt, mustard, or ketchup on your food, unless it is labeled low-sodium or low-salt. Make your own salad dressings, sauces, and ketchup without adding salt. Use fresh or frozen ingredients, instead of canned ones, whenever you can. Choose low-sodium cannedgoods. Eat less processed food and food from restaurants, including fast food. Exercise as directed Moderate, regular exercise is very good for your heart. It improves your blood flow and helps control your weight. But too much exercise can stress your heart and cause a heart failure flare-up. Check with your doctor before you start an exercise program. Walking is an easy way to get exercise. Start out slowly. Gradually increase the length and pace ofyour walk. Swimming, riding a bike, and using a treadmill are also good forms of exercise. When you exercise, watch for signs that your heart is working too hard. You are pushing yourself too hard if you cannot talk while you are exercising. If you become short of breath or dizzy or have chest pain, stop, sit down, and rest. Do not exercise when you do not feel well. Take medicines correctly Take your medicines exactly as prescribed. Call your doctor if you think you are having a problem with your medicine. Make a list of all the medicines you take. Include those prescribed to you by other doctors and poxhiqt-xhg-vdnqpld medicines, vitamins, or supplements you take. Take this list with you when you go to any doctor. Take your medicines at the same time every day. It may help you to post a list of all the medicinesyou take every day and what time of day you take them. Make taking your medicine as simple as you can. Plan times to take your medicines when you are doing other things, such as eating a meal or getting ready for bed. This will make it easier to rememberto take your medicines. Get organized. Use helpful tools, such as daily or weekly pill containers. When should you call for help? Call 911 if you have symptoms of sudden heart failure such as: You have severe trouble breathing. You cough up pink, foamy mucus. You have a new irregular or rapid heartbeat. Call your doctor now or seek immediate medical care if: You have new or increased shortness of breath. You are dizzy or lightheaded, or you feel like you may faint. You have sudden weight gain, such as more than 2 to 3 pounds in a day or 5 pounds in a week. (Your doctor may suggest a different range of weight gain.) You have increased swelling in your legs, ankles, or feet. You are suddenly so tired or weak that you cannot do your usual activities. Watch closely for changes in your health, and be sure to contact your doctor if you develop new symptoms. Where can you learn more? Go to [email or web address] and sign in to your [employer] account. Enter V089 in the Search Health Information box to learn more about Avoiding Triggers With Heart Failure: Care Instructions. If you do not have an account, please click on the Sign Up Now link. Current as of: April 25, 2019 Content Version: 12. [employer]. Care instructions adapted under license by [employer]. If you have questions about a medical condition or this instruction, always ask your healthcare professional. [employer] disclaims any warranty or liability for your use of this information. documented in this encounter History of Present Illness * Angelica Payne RN - 08/29/2019 1:11 PM EDT Discharge instructions given and follow up appointments reviewed. [facility] medications sent to [facility] [place]. * Stephani Madera RN - 08/29/2019 10:39 AM EDT Palliative Care Notes Reason for Consult: Chronic disease support--CHF Patient Active Problem List Diagnosis Acute on chronic diastolic HF (heart failure) ([facility]) Aortic stenosis PAF (paroxysmal atrial fibrillation) ([facility]) Aortic stenosis, severe Acute on chronic combined systolic and diastolic CHF (congestive heart failure) ([facility]) Hypoxia Hypomagnesemia Acute on chronic respiratory failure with hypoxia ([facility]) Suspected COVID-19 virus infection Advance Directives: Code status: DNR-CCA Patient has capacity for medical decisions: yes Health Care Power of Switchboard Operator Supervisor: yes Living Will: yes Pain Management: The patient is not having any pain. Symptom Management: Are there any other symptoms that are distressing to the patient or family thatneeds addressed? Anxiety: none Dyspnea: improved but chronic Fatigue: denies Bladder function: denies problems Bowel function: denies problems Other: none Spiritual history/needs: Timber Watchman notified: n/a Palliative Performance Scale: __x_70% Ambulation reduced; Some disease; Can't do normal job or work; intake normal or reduced; can do full self care; LOC full ___60% Ambulation reduced; Significant disease; Can't do hobbies/housework; intake normal or reduced; occasional assist; LOC full/confusion ___50% Mainly sit/lie; Extensive disease; Can't do any work; Considerable assist; intake normal or reduced; LOC full/confusion ___40% Mainly in bed; Extensive disease; Mainly assist; intake normal or reduced; LOC full/confusion ___30% Bed Bound; Extensive disease; Total care; intake reduced; LOCfull/confusion ___20% Bed Bound; Extensive disease; Total care; intake minimal; Drowsy/coma ___10% Bed Bound; Extensive disease; Total care; Mouth care only; Drowsy/coma ___0 Readmission Risk: 14% Notes: Samreen is sitting up in the chair during my visit. She was admitted with CHF Class III. Also has severe aortic stenosis. Radha tells me that she hopes that her issues will improve after having valve surgery . Tells me that she was in the hospital in July of this year where she had leg edema. States recently she started filling up in her abdomen and lungs. Woke up in the middle of the night dyspneic so came to the hospital. Radha states that she is living with her daughter, and has done so since July. Everything is on one level for her. 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 Stopped working when she started having health issues. She is a . Has three daughters. Denies needs or concerns at home. Completed advance directives while in the hospital this admission. Also has a DNRCC-A order. Tells me that she was asked about it when they tested her for COVID 19, but states that she wanted one anyway. No questions or concerns. States her davis prompted the DNR order. Heart Failure Zones handout given and reviewed. Radha tells me that she hadn't been weighing herself every day, and that she doesn't use a lot of salt normally. Tells me that she is going to try to dobetter . Encouragement and support given. Has no questions or concerns at this time. Will follow and support as needed. Palliative Care Plan: Education/support to patient Providing support for coping/adaptation/distress of patient Specific spiritual beliefs/practices Advanced directive completed Continue with current plan of care Code status clarified: DNRCCA Palliative Care Goals: improve or maintain function/quality of life, remain at home and preserve independence/autonomy/control Visit focus: Routine meeting Discuss goals of care Listen to patient/family concerns Interdiscplinary collaboration Build trust Elicit patient's goals and values, and use these to establish or modify goals of care Stephani Madera RN, [facility] Palliative Care Nurse Coordinator 08/29/2019 11:11 AM * Mary Jo Dickens LSW - 08/29/2019 9:42 AM EDT Follow up with the patient and stated the discharge plan is still home with no services. JAVIER Osorio * Jackson Murrieta, RD, LD - 08/29/2019 9:13 AM EDT Nutrition Assessment Type and Reason for Visit: Reassess Nutrition Recommendations: Continue current nutrition plan Nutrition Assessment: Altered nutrition related labs r/t cardiac dysfunction aeb BNP 7259, 2 gm sodium diet due to CHF. Pt is COVID-19 negative. PO intakes are good per I/O data. She can identify foods in diet that are high is salt and has educational materials. Nutrition Risk Level: Moderate Nutrient Needs: Estimated Daily Total Kcal: 4135-0808(15-18/kg) Estimated Daily Protein (g): 83-94g(1.4-1.6g/kg) Estimated Daily Total Fluid (ml/day): 2034 ml Objective Information: Nutrition-Focused Physical Findings: unable to assess Wound Type: None Current Nutrition Therapies: Oral Diet Orders: 2gm Sodium Oral Diet intake: 76-100% Oral Nutrition Supplement (ONS) Orders: None Anthropometric Measures: Ht: 5' 6 (167.6 cm) Current Body Wt: 224 lb 6.4 oz (101.8 kg) Admission Body Wt: 224 lb 1.2 oz (101.6 kg) Usual Body Wt: 236 lb 12.8 oz (107.4 kg)(07/21/19) % Weight Change: , 12.7#/5.4% weight loss x 1 month: ? fluid losses Poplar Body Wt: 130 lb (59 kg), % Poplar Body 173% BMI Classification: BMI 35.0 - 39.9 Obese Class II Lab Results Component Value Date NA 137 08/29/2019 K 4.0 08/29/2019 CL 94 (L) 08/29/2019 CO2 31 08/29/2019 BUN 20 08/29/2019 CREATININE 0.80 08/29/2019 GLUCOSE 139 (H) 08/29/2019 CALCIUM 9.4 08/29/2019 PROT 8.0 08/26/2019 LABALBU 3.8 08/26/2019 BILITOT 0.84 08/26/2019 ALKPHOS 80 08/26/2019 AST 24 08/26/2019 ALT 14 08/26/2019 LABGLOM >60 08/29/2019 GFRAA >60 08/29/2019 GLOB 3.0 10/16/2011 Nutrition Interventions: Continue current diet Continued Inpatient Monitoring, Education not appropriate at this time, Coordination of Care(attachlow sodium and CC diet information to d/c) Nutrition Evaluation: Evaluation: Progressing toward goals Goals: PO > 75% of meals with improved glycemic control and limitation of sodium to < 2,000 mg daily Monitoring: Meal Intake, I&O, Weight, Pertinent Labs, Patient/Family Education Contact Number: [phone] * Peggy Abbasi APRN - PLACEMENT ASSISTANT - 08/29/2019 7:25 AM EDT Progress Note SUBJECTIVE: F/u on SOB OBJECTIVE: Sitting up in the chair with oxygen on at 2L in no distress. Denies complaints. Tolerating diet and activity well. COVID-19 negative. Vitals: Vitals: 08/29/19 0833 BP: Pulse: Resp: Temp: SpO2: 94% Weight: 224 lb 6.4 oz (101.8 kg) Height: 5' 6 (167.6 cm) Exam: CONSTITUTIONAL: awake, alert, cooperative, no apparent distress, and appears stated age EYES: Lids and lashes normal, pupils equal, round and reactive to light, extra ocular muscles intact, sclera clear, conjunctiva normal ENT: normocepalic, without obvious abnormality, atraumatic NECK: supple, symmetrical, trachea midline, skin normal and no stridor HEMATOLOGIC/LYMPHATICS: no cervical lymphadenopathy LUNGS: no increased work of breathing, good air exchange and rhonchi diffuse, wheeze right base andleft base CARDIOVASCULAR: Normal apical impulse, regular rate and rhythm, normal S1 and S2, no S3 or S4, and no murmur noted ABDOMEN: No scars, normal bowel sounds, soft, non-distended, non-tender, no masses palpated, no hepatosplenomegally MUSCULOSKELETAL: there is no redness, warmth, or swelling of the joints full range of motion noted tone is normal NEUROLOGIC: Mental Status Exam: Alert, oriented, no deficits SKIN: no bruising or bleeding, normal skin color, texture, turgor, no redness, warmth, or swelling,no rashes and no lesionsLevel of Alertness: awake Orientation: person, place, time Memory: normal EXT: no cyanosis, clubbing or edema present Diagnostic Data: Reviewed ASSESSMENT: Principal Problem: Acute on chronic combined systolic and diastolic CHF (congestive heart failure) ([facility]) Active Problems: PAF (paroxysmal atrial fibrillation) ([facility]) Aortic stenosis, severe Hypoxia Hypomagnesemia Acute on chronic respiratory failure with hypoxia [facility] [facility]) Suspected COVID-19 virus infection Resolved Problems: * No resolved hospital problems. * PLAN: Discharge Home today Peggy Abbasi APRN, BILL OF LADING CLERK-C Associated attestation - Roland Casey MD - 08/29/2019 11:09 AM EDT Attestation 08/29/19 I personally evaluated and examined the patient [id number] in conjunction with the BILL OF LADING CLERK and agree with the management and dispostition of the patient. Please see BILL OF LADING CLERK's progress note for full details. My warren findings are: SUBJECTIVE: Patient seen for follow up of Acute on chronic combined systolic and diastolic CHF (congestive heart failure) (HCC). She is better OBJECTIVE: Vitals: Temp: 97.6 F (36.4 C) BP: 104/67 Resp: 18 Pulse: 62 SpO2: 94 % 24HR INTAKE/OUTPUT: Intake/Output Summary (Last 24 hours) at 08/29/2019 1108 Last data filed at 08/29/2019 0840 Gross per 24 hour Intake 1390 ml Output 800 ml Net 590 ml Exam: GEN: Awake, alert and oriented x 3. no acute distress EYES: EOMI, pupils equal NECK: Supple. No lymphadenopathy. No carotid bruit CVS: S1,s2,3/6 murmer PULM: CTA, no wheezes, rales or rhonchi ABD: Bowels sounds normal. Abdomen is soft. No distention. No tenderness. EXT: no edema bilaterally . No calf tenderness. NEURO: Motor and sensory are intact SKIN: No rashes. No skin lesions. Diagnostic Data: All available data reviewed Lab Results Component Value Date WBC 7.7 08/27/2019 HGB 10.8 (L) 08/27/2019 MCV 76.6 (L) 08/27/2019 PLT See Reflexed IPF Result 08/27/2019 Lab Results Component Value Date GLUCOSE 139 (H) 08/29/2019 BUN 20 08/29/2019 CREATININE 0.80 08/29/2019 NA 137 08/29/2019 K 4.0 08/29/2019 CALCIUM 9.4 08/29/2019 CL 94 (L) 08/29/2019 CO2 31 08/29/2019 ASSESSMENT: Principal Problem: Acute on chronic combined systolic and diastolic CHF (congestive heart failure) (HCC) Active Problems: PAF (paroxysmal atrial fibrillation) (HCC) Aortic stenosis, severe Hypoxia Hypomagnesemia Acute on chronic respiratory failure with hypoxia (HCC) Suspected COVID-19 virus infection Resolved Problems: * No resolved hospital problems. * PLAN: I agree with the plan as outlined in the BILL OF LADING CLERK's note Principal Problem: Acute on chronic combined systolic and diastolic CHF (congestive heart failure) (HCC) Active Problems: PAF (paroxysmal atrial fibrillation) (HCC) Aortic stenosis, severe Hypoxia Hypomagnesemia Acute on chronic respiratory failure with hypoxia (HCC) Suspected COVID-19 virus infection Resolved Problems: * No resolved hospital problems. * D/c home * Kaitlynn Tadeo RN - 08/29/2019 7:14 AM EDT Pt set up to wash up. * Holli Franklin, PLATER SUPERVISOR - 08/29/2019 4:14 AM EDT RESPIRATORY ASSESSMENT PROTOCOL Patient Name: Samreen Dawson Room#: 0314/0314-01 : 1955 Admitting diagnosis: CHF (congestive heart failure), NYHA class I, acute on chronic, combined (HCC)[I50.43] Medical History: Past Medical History: Diagnosis Date Asthma Blood circulation, collateral Cerebral artery occlusion with cerebral infarction (HCC) CHF (congestive heart failure) (HCC) COPD (chronic obstructive pulmonary disease) (HCC) Diabetes mellitus (HCC) Hypertension PATIENT ASSESSMENT LABORATORY DATA Hematology: Lab Results Component Value Date WBC 7.7 08/27/2019 RBC 4.99 08/27/2019 RBC 4.68 10/16/2011 HGB 10.8 08/27/2019 HCT 38.2 08/27/2019 PLT See Reflexed IPF Result 08/27/2019 Chemistry: No results found for: PHART, UBC9EIX, PO2ART, B7HTIIBH, PKP3GIE, PBEA Blood Culture: Sputum Culture: VITALS Pulse: 75 Resp: 18 BP: (!) 101/56 SpO2: 95 % O2 Device: Nasal cannula Temp: 98.1 F (36.7 C) Comment: SKIN COLOR [x] Normal [] Pale [] Dusky [] Cyanotic RESPIRATORY PATTERN [x] Normal [] Dyspnea [] [place] [] Kussmaul [] Biots AMBULATORY [x] Yes [] No [] With Assistance PEAK FLOW Predicted: Personal Best: VITAL CAPACITY Predicted value: ml Actual Value: ml 30% of Predicted: Ml Patient Acuity 0 1 2 3 4 Score Level of Concious (LOC) [x] Alert & Oriented or Pt normal LOC [] Confused;follows directions [] Confused & uncooper-ative [] Obtunded [] Comatose 0 Respiratory Rate (RR) [x] Reg. rate & pattern. 12 - 20 bpm [] Increased RR. Greater than 20 bpm [] SOB w/ exertion or RR greater than 24 bpm [] Access- ory muscle use at rest. Abn. resp. [] SOB at rest. 0 Bilateral Breath Sounds (BBS) [] Clear [] Diminish-ed bases [] Diminish-ed t/o, or rales [x] Sporadic, scattered wheezes or rhonchi [] Persistentwheezes and, or absent BBS 3 Cough [x] Strong, effective, & non-prod. [] Effective & prod. Less than 25 ml (2 TBSP) over past 24 hrs [] Ineffective & non-prod to less than 25 ML over past 24 hrs [] Ineffective and, or greater than 25 ml sputum prod. past 24 hrs. [] Nonspon- taneous; Requires suctioning 0 Pulmonary History (PULM HX) [] No smoking and no chronic pulmonaryhistory [] Former smoker. Quit over 12 mos. ago [] Current smoker or quit w/ in 12 mos [x] Pulm. History and, or 20 pk/yr smoking hx [] Admitted w/ acute pulm. dx and, or has been admitted w/ pulm. dx 2 or more times over past 12 mos 3 Surgical History this Admit (SURG HX) [x] No surgery [] General surgery [] Lower abdominal [] Thoracic or upper abdominal [] Thoracic w/ pulm. disease 0 Chest X-Ray (CXR)/CT Scan [] Clear or not applicable [] Not available [] Atelect- asis or pleural effusions [] Localized infiltrate or pulm. edema [x] Con-solidated Infiltrates, bilateral, or in more than 1 lobe 4 Slow or Forced VC, FEV1 OR PEFR (PULM FXN) [x] 80% or greater, or not indicated [] Pt. unable to perform [] FEV1 or PEFR or VC 51-79%. [] FEV1 or PEFR or VC 30-49% [] FEV1 or PEFR or VC less than 30% 0 TOTAL ACUITY: 10 CARE PLAN If Acuity Level is 2, 3, or 4 in any of the following: [x] BILATERAL BREATH SOUNDS (BBS) [x] PULMONARY HISTORY (PULM HX) [] PULMONARY FUNCTION (PULM FX) Goal: Improve respiratory functions in patients with airway disease and decrease WOB [x] AEROSOL PROTOCOL Total Acuity: 16-32 [] Secondary Assessment in 24 hrs Total Acuity: 9-15 [x] Secondary Assessment in 24 hrs Total Acuity: 4-8 [] Secondary Assessment in 48 hrs Total Acuity: 0-3 [] Secondary Assessment in 72 hrs HHN AEROSOL THERAPY with [physician-ordered bronchodilator(s)] q 4 & Albuterol PRN q2 hrs. Breath-Actuated Neb if BBS Acuity = 4, and pt. can use MP. Notify physician if condition deteriorates. HHN AEROSOL THERAPY with [physician-ordered bronchodilator(s)] QID and Albuterol PRN q4 hrs. Breath-Actuated Neb if BBS Acuity = 4, and pt. can use MP. Notify physician if condition deteriorates. MDI THERAPY with 2 actuations of [physician-ordered bronchodilator(s)] via spacer TID Albuterol and PRNq4 hrs. If unable to utilize MDI: HHN [physician-ordered bronchodilator(s)] TID and Albuterol PRN q4 hrs. Notify physician if condition deteriorates. MDI THERAPY with [physician-ordered bronchodilator(s)] via spacer TID PRN. If unable to utilize MDI: HHN [physician-ordered bronchodilator(s)] TID PRN. Notify physician if condition deteriorates. If Acuity Level is 2, 3, or 4 in any of the following: [] COUGH [] SURGICAL HISTORY (SURG HX) [x] CHEST XRAY (CXR) Goal: Improvement in sputum mobilization in patients with ineffective airway clearance. Reverse atelectasis. [x] Bronchopulmonary Hygiene Protocol Total Acuity: 16-32 [] Secondary Assessment in 24 hrs Total Acuity: 9-15 [x] Secondary Assessment in 24 hrs Total Acuity: 4-8 [] Secondary Assessment in 48 hrs Total Acuity: 0-3 [] Secondary Assessment in 72 hrs METANEB QID with [physician-ordered bronchodilator(s)] if CXR Acuity = 4; otherwise: PD&P, PEP, or Vest QID & PRN NT Sxn PRN for ineffective cough METANEB QID with [physician-ordered bronchodilator(s)] if CXR Acuity = 4; otherwise: PD&P, PEP, or Vest TID & PRN NT Sxn PRN for ineffective cough Instruct patient to self-perform IS q1hr WA Directed Cough self-performed q1hr WA If Acuity Level is 2 or above in the following: [] PULMONARY HISTORY (PULM HX) Goal: Assist patient in quitting smoking to slow or stop the progression of lung disease. [] Smoking Cessation Protocol SMOKING CESSATION EDUCATION provided according to policy RT_201: (sancho with an X) ____Yes ____ No ____ NA Smoking Cessation Booklet given: ____Yes ____No ____Patient Refused * Jean Borrero MD - 08/28/2019 4:15 PM EDT Patient: Samreen Dawson : 1955 Date of Admission: 08/26/2019 Primary Care Physician: MANJU PRESTON Today's Date: 08/28/2019 REASON FOR CONSULTATION: Shortness of Breath (ongoing for approx 2 days and worsening- O2 saturation in 80's while on 4L NC, pt placed on NRB by EMS) HPI: Ms. Dawson is a 63 y.o. female who was admitted to the hospital with progressive increased shortness of breath. She has a history of a pacemaker implant about a year ago for a rhythm issue per Ms. Dawson. She also reports a history of stents placed about 20 years ago. She also reports severe disease of her aortic valve and is in the process of being worked up for surgical correction of that. She reports having a heart catheterization at [facility] in 09/26 which reportedly did not show any significant coronary artery disease. Exercise Tolerance: Ms. Dawson reports that she has a fairly poor exercise tolerance. Her says that she could walk about 1/2 block without developing chest discomfort or significant shortness of breath. Ms. Dawson also reports feeling better today. She says her breathing is better as well as her lower extremity edema. She says that she has been able to walk around a bit and denies any lightheadedness or dizziness. She reports having a normal BM yesterday. She denied any current or recent chest pain, abdominal pain, bleeding problems, problems with her medications or any other concerns at this time. Past Medical History: Diagnosis Date Asthma Blood circulation, collateral Cerebral artery occlusion with cerebral infarction (HCC) CHF (congestive heart failure) (HCC) COPD (chronic obstructive pulmonary disease) (HCC) Diabetes mellitus (HCC) Hypertension CURRENT ALLERGIES: Benadryl [diphenhydramine] and Codeine REVIEW OF SYSTEMS: 14 systems were reviewed. Pertinent positives and negatives as above, all else negative. Past Surgical History: Procedure Laterality Date ATRIAL ABLATION SURGERY 08/2018 CARDIAC SURGERY 03/2018 cardiac stents PACEMAKER PLACEMENT Left 09/2017 Social History: Social History Tobacco Use Smoking status: Former Smoker Packs/day: 1.00 Types: Cigarettes Smokeless tobacco: Never Used Tobacco comment: quit jun 2019 Substance Use Topics Alcohol use: Not Currently Drug use: Never CURRENT MEDICATIONS: Outpatient Medications Marked as Taking for the 08/26/19 encounter (Hospital Encounter) Medication Sig Dispense Refill furosemide (LASIX) 20 MG tablet Take 1 tablet by mouth daily 30 tablet 5 dilTIAZem (CARDIZEM CD) 240 MG extended release capsule Take 1 capsule by mouth daily 30 capsule 3 potassium chloride (KLOR-CON M) 20 MEQ extended release tablet Take 1 tablet by mouth daily 30 tablet 0 aspirin 81 MG tablet Take 81 mg by mouth daily FLUoxetine (PROZAC) 20 MG tablet Take 20 mg by mouth daily montelukast (SINGULAIR) 10 MG tablet Take 10 mg by mouth nightly xujineaknnk-gfgungjvc-awtcdc (TRELEGY ELLIPTA) 100-62.5-25 MCG/INH AEPB Inhale 1 puff into the lungs daily atorvastatin (LIPITOR) 80 MG tablet Take 80 mg by mouth daily albuterol (PROVENTIL) (2.5 MG/3ML) 0.083% nebulizer solution Take 2.5 mg by nebulization every 6 hours as needed for Wheezing atorvastatin (LIPITOR) tablet 80 mg, Nightly montelukast (SINGULAIR) tablet 10 mg, Nightly sodium chloride flush 0.9 % injection 10 mL, 2 times per day sodium chloride flush 0.9 % injection 10 mL, PRN acetaminophen (TYLENOL) tablet 650 mg, Q6H PRN Or acetaminophen (TYLENOL) suppository 650 mg, Q6H PRN polyethylene glycol (GLYCOLAX) packet 17 g, Daily PRN promethazine (PHENERGAN) tablet 12.5 mg, Q6H PRN Or ondansetron (ZOFRAN) injection 4 mg, Q6H PRN famotidine (PEPCID) tablet 20 mg, BID enoxaparin (LOVENOX) injection 40 mg, Daily potassium chloride (KLOR-CON M) extended release tablet 40 mEq, PRN Or potassium bicarb-citric acid (EFFER-K) effervescent tablet 40 mEq, PRN Or potassium chloride 10 mEq/100 mL IVPB (Peripheral Line), PRN lisinopril (PRINIVIL;ZESTRIL) tablet 5 mg, Daily furosemide (LASIX) injection 40 mg, BID potassium chloride (KLOR-CON M) extended release tablet 20 mEq, Nightly FLUoxetine (PROZAC) capsule 20 mg, Nightly dilTIAZem (CARDIZEM CD) extended release capsule 240 mg, Nightly aspirin EC tablet 81 mg, Nightly tgtkhkwvdvh-vjalyghpc-qgqggs (TRELEGY ELLIPTA) 100-62.5-25 MCG/INH inhaler 1 puff, Nightly albuterol sulfate HFA 108 (90 Base) MCG/ACT inhaler 2 puff, 4x daily albuterol sulfate HFA 108 (90 Base) MCG/ACT inhaler 2 puff, Q6H PRN FAMILY HISTORY: Reviewed but non-contributory PHYSICAL EXAM: BP 120/67 Pulse 81 Temp 97.7 F (36.5 C) (Temporal) Resp 16 Ht 5' 6 (1.676 m) Wt 226 lb 4.8 oz (102.6 kg) SpO2 95% BMI 36.53 kg/m Body mass index is 36.53 kg/m . [ INSTRUCTIONS: [x] Indicates a positive item [] Indicates a negative item Vital Signs: (As obtained by patient/caregiver or practitioner observation) Blood pressure- Heart rate- Respiratory rate- Temperature- Pulse oximetry- Constitutional: [x] Appears well-developed and well-nourished [x] No apparent distress [] Abnormal- Mental status [x] Alert and awake [x] Oriented to person/place/time [x]Able to follow commands Eyes: EOM [x] Normal [] Abnormal- Sclera [x] Normal [] Abnormal - Discharge [x] None visible [] Abnormal - HENT: [x] Normocephalic, atraumatic. [] Abnormal [] Mouth/Throat: Mucous membranes are moist. External Ears [x] Normal [] Abnormal- Neck: [x] No visualized mass Pulmonary/Chest: [x] Respiratory effort normal. [x] No visualized signs of difficulty breathing or respiratory distress [] Abnormal- Neurological: [x] No Facial Asymmetry (Cranial nerve 7 motor function) (limited exam to video visit) [] No gaze palsy [] Abnormal- Skin: [x] No significant exanthematous lesions or discoloration noted on facial skin [] Abnormal- Psychiatric: [x] Normal Affect [] No Hallucinations [] Abnormal- Other pertinent observable physical exam findings: None MOST RECENT LABS ON RECORD: Lab Results Component Value Date WBC 7.7 08/27/2019 HGB 10.8 (L) 08/27/2019 HCT 38.2 08/27/2019 PLT See Reflexed IPF Result 08/27/2019 CHOL 110 08/27/2019 TRIG 109 08/27/2019 HDL 26 (L) 08/27/2019 LDLCHOLESTEROL 62 08/27/2019 ALT 14 08/26/2019 AST 24 08/26/2019 NA 140 08/28/2019 K 3.6 (L) 08/28/2019 CL 97 (L) 08/28/2019 CREATININE 0.93 (H) 08/28/2019 BUN 20 08/28/2019 CO2 30 08/28/2019 TSH 1.96 08/26/2019 INR 1.0 10/16/2011 ASSESSMENT: Patient Active Problem List Diagnosis Date Noted PAF (paroxysmal atrial fibrillation) ([facility]) 07/19/2019 Priority: High Aortic stenosis, severe 07/19/2019 Priority: High Hypomagnesemia 08/27/2019 Priority: Low Acute on chronic respiratory failure with hypoxia ([facility]) 08/27/2019 Priority: Low Acute on chronic combined systolic and diastolic CHF (congestive heart failure) ([facility]) 08/26/2019 Priority: Low Hypoxia 08/26/2019 Priority: Low Suspected COVID-19 virus infection 08/26/2019 Priority: Low Aortic stenosis 07/19/2019 Priority: Low Acute on chronic diastolic HF (heart failure) ([facility]) 07/18/2019 Priority: Low PLAN: ? Acute on chronic diastolic heart failure: [place] Heart Association Class: III (Asymptomatic only at rest) but much improved. Likely ok for discharge as soon as tomorrow ? Beta Jalen: Not indicated at this time. ? SVETLANA Inibitor/ARB: Continue lisinopril 5 mg daily. ? Diuretics: Prior home dose was 20 mg daily, INCREASE to furosemide (Lasix) 40 mg every morning. ? Heart failure counseling: I advised them to try and keep their legs up whenever possible and to limit salt in their diet. Severe Aortic Stenosis: symptomatic. I discussed her severe aortic stenosis and told her that I spoke with Dr. Brumfield regarding her condition. He was in agreement with the need to get this taken care of SIVA. Ms. Dawson was very happy to hear this and said that she would like to proceed ISVA. I also discussed the likely need to to a ARIA and will plan to get her a date and time for this this coming and will plan to have her see Dr. Brumfield this coming Thursday. Beta Jalen: Not indicated at this time. SVETLANA Inibitor/ARB: Continue lisinopril 5 mg daily. Diuretics: Continue furosemide (Lasix) 40 mg IV 2 times daily. Additional Testing List: Trans-Esophageal Echocardiogram (ARIA): I discussed at length the risks andbenefits of the procedure including the risk of damage to teeth, gums or tongue, the potential needfor short term intubation, the risk of esophageal rupture and the need for further procedures, and the rare but potential complications of dangerous arrhthymias, stroke, heart attack or . They verbalized understanding of these risks and benefits and stated that they would like to have the procedure performed. Therefore I took the liberty of scheduling them to have this done on this coming , 09/01/19. I advised them to try and keep their legs up whenever possible and to limit salt in their diet. Additional Testing List: I ordered a echocardiogram to better assess for the etiology of this problem and to help guide future management ? Atherosclerotic Heart Disease: History of Stents in the past ? Antiplatelet Agent: Continue Aspirin 81 mg daily. ? Beta Jalen: Not indicated at this time. ? Anti-anginal medications: Continue diltiazem CD (Cardizem CD) 240 mg once daily. ? Cholesterol Reduction Therapy: Continue Atorvastatin (Lipitor) 80 mg daily. Once again, thank you for allowing me to participate in this patients care. Please do not hesitate to contact me if I could be of any further assistance. Sincerely, Jean Borrero MD, MS, F.A.C.C. [facility] [employer] [address] [place] [id number] , I believe that the risk of significant morbidity and mortality related to the patient's current medical conditions are: Intermediate. Samreen Dawson is a 63 y.o. female being evaluated by a Virtual Visit (video visit) encounterto address concerns as mentioned above. A caregiver was present when appropriate. Due to this beinga TeleHealth encounter (During COVID- 19 public health emergency), evaluation of the following organsystems was limited: Vitals/Constitutional/EENT/Resp/CV/GI//MS/Neuro/Skin/Nbgv-Flidx-Mux. Pursuant to the emergency declaration under the [place] Act and the National Emergencies Act, 1135 waiver authority and the Coronavirus Preparedness and Response Supplemental Appropriations Act, this Virtual Visit was conducted with patient's (and/or legal guardian's) consent, to reduce the patient's riskof exposure to COVID-19 and provide necessary medical care. The patient (and/or legal guardian) hasalso been advised to contact this office for worsening conditions or problems, and seek emergency medical treatment and/or call 911 if deemed necessary. Services were provided through a video synchronous discussion virtually to substitute for in-personclinic visit. Patient and provider were located at their individual homes. --JEAN BORRERO MD on 08/28/2019 at 4:15 PM An electronic signature was used to authenticate this note. * Roland Casey MD - 08/28/2019 10:25 AM EDT Progress Note Roland Casey MD SUBJECTIVE: Patient is seen for Principal Problem: Acute on chronic combined systolic and diastolic CHF (congestive heart failure) ([facility]) Active Problems: PAF (paroxysmal atrial fibrillation) (HCC) Aortic stenosis, severe Hypoxia Hypomagnesemia Acute on chronic respiratory failure with hypoxia (HCC) Suspected COVID-19 virus infection Resolved Problems: * No resolved hospital problems. * patient breathing better Has no shortness of breath at rest or on minimal exertion No chest pain covid test negative OBJECTIVE: Vitals: Vitals: 08/28/19 1026 BP: Pulse: Resp: Temp: SpO2: 96% Weight: 226 lb 4.8 oz (102.6 kg) Height: 5' 6 (167.6 cm) Exam: CONSTITUTIONAL: awake, alert, cooperative, no apparent distress, and appears stated age EYES: Lids and lashes normal, pupils equal, round and reactive to light, extra ocular muscles intact, sclera clear, conjunctiva normal ENT: Normocephalic, without obvious abnormality, atraumatic, sinuses nontender on palpation, external ears without lesions, oral pharynx with moist mucus membranes, tonsils without erythema or exudates, gums normal and good dentition. NECK: Supple, symmetrical, trachea midline, no adenopathy, thyroid symmetric, not enlarged and no tenderness, skin normal HEMATOLOGIC/LYMPHATICS: no cervical lymphadenopathy LUNGS: Has diminished air entry at bases and basal rales,no wheezes or retractions CARDIOVASCULAR: S1,s2,3/6 murmer,no gallop ABDOMEN: Soft,non tender MUSCULOSKELETAL: there is no redness, warmth, or swelling of the joints NEUROLOGIC: Awake, alert, oriented to name, place and time. Cranial nerves II- XII are grossly intact. Motor is 5 out of 5 bilaterally. SKIN: no bruising or bleeding EXT: no cyanosis, clubbing or edema present Diagnostic Data: Reviewed More Recent Labs: Results for orders placed or performed during the hospital encounter of 08/26/19 CBC Auto Differential Result Value Ref Range WBC 12.5 (H) 3.5 - 11.3 k/uL RBC 5.72 (H) 3.95 - 5.11 m/uL Hemoglobin 12.3 11.9 - 15.1 g/dL Hematocrit 43.5 36.3 - 47.1 % MCV 76.0 (L) 82.6 - 102.9 fL MCH 21.5 (L) 25.2 - 33.5 pg MCHC 28.3 (L) 28.4 - 34.8 g/dL RDW 19.3 (H) 11.8 - 14.4 % Platelets See Reflexed IPF Result 138 - 453 k/uL MPV NOT REPORTED 8.1 - 13.5 fL NRBC Automated 0.0 0.0 per 100 WBC Differential Type NOT REPORTED WBC Morphology NOT REPORTED RBC Morphology NOT REPORTED Platelet Estimate NOT REPORTED Seg Neutrophils 73 (H) 36 - 65 % Lymphocytes 19 (L) 24 - 43 % Monocytes 7 3 - 12 % Eosinophils % 1 1 - 4 % Immature Granulocytes 0 0 % Basophils 0 0 - 2 % Segs Absolute 9.11 (H) 1.50 - 8.10 k/uL Absolute Lymph # 2.38 1.10 - 3.70 k/uL Absolute [place] # 0.88 0.10 - 1.20 k/uL Absolute Eos # 0.13 0.00 - 0.44 k/uL Absolute Immature Granulocyte 0.00 0.00 - 0.30 k/uL Basophils Absolute 0.00 0.0 - 0.2 k/uL Morphology HYPOCHROMASIA PRESENT Comprehensive Metabolic Panel w/ Reflex to MG Result Value Ref Range Glucose 175 (H) 70 - 99 mg/dL BUN 16 8 - 23 mg/dL CREATININE 0.76 0.50 - 0.90 mg/dL Bun/Cre Ratio 21 (H) 9 - 20 Calcium 9.4 8.6 - 10.4 mg/dL Sodium 138 135 - 144 mmol/L Potassium 4.2 3.7 - 5.3 mmol/L Chloride 97 (L) 98 - 107 mmol/L CO2 30 20 - 31 mmol/L Anion Gap 11 9 - 17 mmol/L Alkaline Phosphatase 80 35 - 104 U/L ALT 14 5 - 33 U/L AST 24 <32 U/L Total Bilirubin 0.84 0.3 - 1.2 mg/dL Total Protein 8.0 6.4 - 8.3 g/dL Alb 3.8 3.5 - 5.2 g/dL Albumin/Globulin Ratio 0.9 (L) 1.0 - 2.5 GFR Non- >60 >60 mL/min GFR >60 >60 mL/min GFR Comment GFR Staging Troponin Result Value Ref Range Troponin, High Sensitivity 55 (HH) 0 - 14 ng/L Troponin T NOT REPORTED <0.03 ng/mL Troponin Interp NOT REPORTED Brain Natriuretic Peptide Result Value Ref Range Pro-BNP 7,259 (H) <300 pg/mL BNP Interpretation Pro-BNP Reference Range: Immature Platelet Fraction Result Value Ref Range Platelet, Immature Fraction 10.3 1.1 - 10.3 % Platelet, Fluorescence 154 138 - 453 k/uL Troponin Result Value Ref Range Troponin, High Sensitivity 53 (HH) 0 - 14 ng/L Troponin T NOT REPORTED <0.03 ng/mL Troponin Interp NOT REPORTED Urinalysis Reflex to Culture Result Value Ref Range Color, UA YELLOW YELLOW Turbidity UA CLEAR CLEAR Glucose, Ur NEGATIVE NEGATIVE Bilirubin Urine NEGATIVE NEGATIVE Ketones, Urine NEGATIVE NEGATIVE Specific [place], UA 1.015 1.010 - 1.020 Urine Hgb 1+ (A) NEGATIVE pH, UA 6.0 5.0 - 9.0 Protein, UA 2+ (A) NEGATIVE Urobilinogen, Urine Normal Normal Nitrite, Urine NEGATIVE NEGATIVE Leukocyte Esterase, Urine NEGATIVE NEGATIVE Urinalysis Comments NOT REPORTED Microscopic Urinalysis Result Value Ref Range - WBC, UA 0 TO 2 0 - 5 /HPF RBC, UA 2 TO 5 0 - 2 /HPF Casts UA NOT REPORTED /LPF Crystals, UA NOT REPORTED None /HPF Epithelial Cells UA 0 TO 2 0 - 25 /HPF Renal Epithelial, UA NOT REPORTED 0 /HPF Bacteria, UA NOT REPORTED None Mucus, UA NOT REPORTED None Trichomonas, UA NOT REPORTED None Amorphous, UA NOT REPORTED None Other Observations UA NOT REPORTED NOT REQ. Yeast, UA NOT REPORTED None TSH Result Value Ref Range TSH 1.96 0.30 - 5.00 mIU/L T4, free Result Value Ref Range Thyroxine, Free 1.33 0.93 - 1.70 ng/dL COVID-19 Result Value Ref Range SARS-CoV-2 Not Detected Not Detected Source .NASOPHARYNGEAL SWAB SARS-CoV-2, PCR Basic Metabolic Panel Result Value Ref Range Glucose 133 (H) 70 - 99 mg/dL BUN 18 8 - 23 mg/dL CREATININE 0.80 0.50 - 0.90 mg/dL Bun/Cre Ratio 23 (H) 9 - 20 Calcium 9.6 8.6 - 10.4 mg/dL Sodium 137 135 - 144 mmol/L Potassium 3.7 3.7 - 5.3 mmol/L Chloride 96 (L) 98 - 107 mmol/L CO2 29 20 - 31 mmol/L Anion Gap 12 9 - 17 mmol/L GFR Non- >60 >60 mL/min GFR >60 >60 mL/min GFR Comment GFR Staging Magnesium Result Value Ref Range Magnesium 1.5 (L) 1.6 - 2.6 mg/dL Lipid panel - fasting Result Value Ref Range Cholesterol 110 <200 mg/dL HDL 26 (L) >40 mg/dL LDL Cholesterol 62 0 - 130 mg/dL Chol/HDL Ratio 4.2 <5 Triglycerides 109 <150 mg/dL VLDL NOT REPORTED 1 - 30 mg/dL CBC auto differential Result Value Ref Range WBC 7.7 3.5 - 11.3 k/uL RBC 4.99 3.95 - 5.11 m/uL Hemoglobin 10.8 (L) 11.9 - 15.1 g/dL Hematocrit 38.2 36.3 - 47.1 % MCV 76.6 (L) 82.6 - 102.9 fL MCH 21.6 (L) 25.2 - 33.5 pg MCHC 28.3 (L) 28.4 - 34.8 g/dL RDW 18.6 (H) 11.8 - 14.4 % Platelets See Reflexed IPF Result 138 - 453 k/uL MPV NOT REPORTED 8.1 - 13.5 fL NRBC Automated 0.0 0.0 per 100 WBC Differential Type NOT REPORTED WBC Morphology NOT REPORTED RBC Morphology NOT REPORTED Platelet Estimate NOT REPORTED Seg Neutrophils 69 (H) 36 - 65 % Lymphocytes 18 (L) 24 - 43 % Monocytes 10 3 - 12 % Eosinophils % 2 1 - 4 % Immature Granulocytes 0 0 % Basophils 1 0 - 2 % Segs Absolute 5.31 1.50 - 8.10 k/uL Absolute Lymph # 1.39 1.10 - 3.70 k/uL Absolute [place] # 0.77 0.10 - 1.20 k/uL Absolute Eos # 0.15 0.00 - 0.44 k/uL Absolute Immature Granulocyte 0.00 0.00 - 0.30 k/uL Basophils Absolute 0.08 0.00 - 0.20 k/uL Morphology HYPOCHROMASIA PRESENT Immature Platelet Fraction Result Value Ref Range Platelet, Immature Fraction 10.0 1.1 - 10.3 % Platelet, Fluorescence 151 138 - 453 k/uL Basic Metabolic Panel Result Value Ref Range Glucose 179 (H) 70 - 99 mg/dL BUN 20 8 - 23 mg/dL CREATININE 0.93 (H) 0.50 - 0.90 mg/dL Bun/Cre Ratio 22 (H) 9 - 20 Calcium 9.8 8.6 - 10.4 mg/dL Sodium 140 135 - 144 mmol/L Potassium 3.6 (L) 3.7 - 5.3 mmol/L Chloride 97 (L) 98 - 107 mmol/L CO2 30 20 - 31 mmol/L Anion Gap 13 9 - 17 mmol/L GFR Non- >60 >60 mL/min GFR >60 >60 mL/min GFR Comment GFR Staging Magnesium Result Value Ref Range Magnesium 1.7 1.6 - 2.6 mg/dL EKG 12 Lead Result Value Ref Range Ventricular Rate 97 BPM Atrial Rate 97 BPM P-R Interval 146 ms QRS Duration 174 ms Q-T Interval 402 ms QTc Calculation (Bazett) 510 ms R Ada 147 degrees T Ada -29 degrees ASSESSMENT: Patient Active Problem List Diagnosis Date Noted PAF (paroxysmal atrial fibrillation) ([facility]) 07/19/2019 Priority: High Aortic stenosis, severe 07/19/2019 Priority: High Hypomagnesemia 08/27/2019 Acute on chronic respiratory failure with hypoxia ([facility]) 08/27/2019 Acute on chronic combined systolic and diastolic CHF (congestive heart failure) ([facility]) 08/26/2019 Hypoxia 08/26/2019 Suspected COVID-19 virus infection 08/26/2019 Aortic stenosis 07/19/2019 Acute on chronic diastolic HF (heart failure) ([facility]) 07/18/2019 PLAN: Acute combined chf- continue diuresis,monitor electrolytes and renal function Acute on chronic respiratory failure with hypoxia- improved and at baseline chronic respiratory status Hypomagnesemia-improved to 1.7 PAF- rate well controlled Total time spent 35 min Roland Casey M.D. * Denisha Acuña, REYES - 08/28/2019 10:[address] Casey at bedside, pt requesting to take shower. Per Dr. Casey: Pt may go off laboratory monitor toshower. Nursing communication ordered entered. * Melisa Goodrich RCP - 08/28/2019 4:42 AM EDT RESPIRATORY ASSESSMENT PROTOCOL Patient Name: Samreen Dawson Room#: 0314/0314-01 : 1955 Admitting diagnosis: CHF (congestive heart failure), NYHA class I, acute on chronic, combined ([facility])[I50.43] Medical History: Past Medical History: Diagnosis Date Asthma Blood circulation, collateral Cerebral artery occlusion with cerebral infarction ([facility]) CHF (congestive heart failure) ([facility]) COPD (chronic obstructive pulmonary disease) ([facility]) Diabetes mellitus ([facility]) Hypertension PATIENT ASSESSMENT LABORATORY DATA Hematology: Lab Results Component Value Date WBC 7.7 08/27/2019 RBC 4.99 08/27/2019 RBC 4.68 10/16/2011 HGB 10.8 08/27/2019 HCT 38.2 08/27/2019 PLT See Reflexed IPF Result 08/27/2019 Chemistry: No results found for: PHART, MYQ2JUQ, PO2ART, P7MTSZNS, RWS2HUT, PBEA Blood Culture: Sputum Culture: VITALS Pulse: 80 Resp: 16 BP: 111/76 SpO2: 94 % O2 Device: Nasal cannula Temp: 98.4 F (36.9 C) Comment: SKIN COLOR [x] Normal [] Pale [] Dusky [] Cyanotic RESPIRATORY PATTERN [x] Normal [] Dyspnea [] Jama-[place] [] Kussmaul [] Biots AMBULATORY [x] Yes [] No [] With Assistance PEAK FLOW Predicted: Personal Best: VITAL CAPACITY Predicted value: ml Actual Value: ml 30% of Predicted: ml Patient Acuity 0 1 2 3 4 Score Level of Concious (LOC) [x] Alert & Oriented or Pt normal LOC [] Confused;follows directions [] Confused & uncooper-ative [] Obtunded [] Comatose 0 Respiratory Rate (RR) [x] Reg. rate & pattern. 12 - 20 bpm [] Increased RR. Greater than 20 bpm [] SOB w/ exertion or RR greater than 24 bpm [] Access- ory muscle use at rest. Abn. resp. [] SOB at rest. 0 Bilateral Breath Sounds (BBS) [] Clear [] Diminish-ed bases [x] Diminish-ed t/o, or rales [] Sporadic, scattered wheezes or rhonchi [] Persistentwheezes and, or absent BBS 2 Cough [x] Strong, effective, & non-prod. [] Effective & prod. Less than 25 ml (2 TBSP) over past 24 hrs [] Ineffective & non-prod to less than 25 ML over past 24 hrs [] Ineffective and, or greater than 25 ml sputum prod. past 24 hrs. [] Nonspon- taneous; Requires suctioning 0 Pulmonary History (PULM HX) [] No smoking and no chronic pulmonaryhistory [] Former smoker. Quit over 12 mos. ago [] Current smoker or quit w/ in 12 mos [x] Pulm. History and, or 20 pk/yr smoking hx [] Admitted w/ acute pulm. dx and, or has been admitted w/ pulm. dx 2 or more times over past 12 mos 3 Surgical History this Admit (SURG HX) [x] No surgery [] General surgery [] Lower abdominal [] Thoracic or upper abdominal [] Thoracic w/ pulm. disease 0 Chest X-Ray (CXR)/CT Scan [] Clear or not applicable [] Not available [] Atelect- asis or pleural effusions [] Localized infiltrate or pulm. edema [x] Con-solidated Infiltrates, bilateral, or in more than 1 lobe 4 Slow or Forced VC, FEV1 OR PEFR (PULM FXN) [x] 80% or greater, or not indicated [] Pt. unable to perform [] FEV1 or PEFR or VC 51-79%. [] FEV1 or PEFR or VC 30-49% [] FEV1 or PEFR or VC less than 30% 0 TOTAL ACUITY: 9 CARE PLAN If Acuity Level is 2, 3, or 4 in any of the following: [x] BILATERAL BREATH SOUNDS (BBS) [x] PULMONARY HISTORY (PULM HX) [] PULMONARY FUNCTION (PULM FX) Goal: Improve respiratory functions in patients with airway disease and decrease WOB [x] AEROSOL PROTOCOL Total Acuity: 16-32 [] Secondary Assessment in 24 hrs Total Acuity: 9-15 [x] Secondary Assessment in 24 hrs Total Acuity: 4-8 [] Secondary Assessment in 48 hrs Total Acuity: 0-3 [] Secondary Assessment in 72 hrs HHN AEROSOL THERAPY with [physician-ordered bronchodilator(s)] q 4 & Albuterol PRN q2 hrs. Breath-Actuated Neb if BBS Acuity = 4, and pt. can use MP. Notify physician if condition deteriorates. HHN AEROSOL THERAPY with [physician-ordered bronchodilator(s)] QID and Albuterol PRN q4 hrs. Breath-Actuated Neb if BBS Acuity = 4, and pt. can use MP. Notify physician if condition deteriorates. MDI THERAPY with 2 actuations of [physician-ordered bronchodilator(s)] via spacer TID Albuterol and PRNq4 hrs. If unable to utilize MDI: HHN [physician-ordered bronchodilator(s)] TID and Albuterol PRN q4 hrs. Notify physician if condition deteriorates. MDI THERAPY with [physician-ordered bronchodilator(s)] via spacer TID PRN. If unable to utilize MDI: HHN [physician-ordered bronchodilator(s)] TID PRN. Notify physician if condition deteriorates. If Acuity Level is 2, 3, or 4 in any of the following: [] COUGH [] SURGICAL HISTORY (SURG HX) [x] CHEST XRAY (CXR) Goal: Improvement in sputum mobilization in patients with ineffective airway clearance. Reverse atelectasis. [x] Bronchopulmonary Hygiene Protocol Total Acuity: 16-32 [] Secondary Assessment in 24 hrs Total Acuity: 9-15 [x] Secondary Assessment in 24 hrs Total Acuity: 4-8 [] Secondary Assessment in 48 hrs Total Acuity: 0-3 [] Secondary Assessment in 72 hrs METANEB QID with [physician-ordered bronchodilator(s)] if CXR Acuity = 4; otherwise: PD&P, PEP, or Vest QID & PRN NT Sxn PRN for ineffective cough METANEB QID with [physician-ordered bronchodilator(s)] if CXR Acuity = 4; otherwise: PD&P, PEP, or Vest TID & PRN NT Sxn PRN for ineffective cough Instruct patient to self-perform IS q1hr WA Directed Cough self-performed q1hr WA If Acuity Level is 2 or above in the following: [] PULMONARY HISTORY (PULM HX) Goal: Assist patient in quitting smoking to slow or stop the progression of lung disease. [] Smoking Cessation Protocol SMOKING CESSATION EDUCATION provided according to policy RT_201: (sancho with an X) ____Yes ____ No ____ NA Smoking Cessation Booklet given: ____Yes ____No ____Patient Refused * Denisha Acuña RN - 08/27/2019 5:39 PM EDT Pt speaking to Dr. Borrero by tele-conference (Doxy.mo) at this time. * Jean Borrero MD - 08/27/2019 5:37 PM EDT Patient: Samreen Dawson : 1955 Date of Admission: 08/26/2019 Primary Care Physician: MANJU PRESTON Today's Date: 08/27/2019 REASON FOR CONSULTATION: Shortness of Breath (ongoing for approx 2 days and worsening- O2 saturation in 80's while on 4L NC, pt placed on NRB by EMS) HPI: Ms. Dawson is a 63 y.o. female who was admitted to the hospital with progressive increased shortness of breath. 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 She has a history of a pacemaker implant about a year ago for a rhythm issue per Ms. Dawson. She also reports ahistory of stents placed about 20 years ago. She also reports severe disease of her aortic valve and is in the process of being worked up for surgical correction of that. Exercise Tolerance: Ms. Dawson reports that she has a fairly poor exercise tolerance. Her says that she could walk about 1/2 block without developing chest discomfort or significant shortness of breath. Ms. Dawson also reports feeling quite well today. She says her breathing is better as well as her lower extremity edema. She says that she has been able to walk around a bit and denies any lightheadedness or dizziness. denied any current or recent chest pain, abdominal pain, bleeding problems, problems with her medications or any other concerns at this time. Past Medical History: Diagnosis Date Asthma Blood circulation, collateral Cerebral artery occlusion with cerebral infarction (HCC) CHF (congestive heart failure) (HCC) COPD (chronic obstructive pulmonary disease) (HCC) Diabetes mellitus (HCC) Hypertension CURRENT ALLERGIES: Benadryl [diphenhydramine] and Codeine REVIEW OF SYSTEMS: 14 systems were reviewed. Pertinent positives and negatives as above, all else negative. Past Surgical History: Procedure Laterality Date ATRIAL ABLATION SURGERY 08/2018 CARDIAC SURGERY 03/2018 cardiac stents PACEMAKER PLACEMENT Left 09/2017 Social History: Social History Tobacco Use Smoking status: Former Smoker Packs/day: 1.00 Types: Cigarettes Smokeless tobacco: Never Used Tobacco comment: quit jun 2019 Substance Use Topics Alcohol use: Not Currently Drug use: Never CURRENT MEDICATIONS: Outpatient Medications Marked as Taking for the 08/26/19 encounter (Hospital Encounter) Medication Sig Dispense Refill furosemide (LASIX) 20 MG tablet Take 1 tablet by mouth daily 30 tablet 5 dilTIAZem (CARDIZEM CD) 240 MG extended release capsule Take 1 capsule by mouth daily 30 capsule 3 potassium chloride (KLOR-CON M) 20 MEQ extended release tablet Take 1 tablet by mouth daily 30 tablet 0 aspirin 81 MG tablet Take 81 mg by mouth daily FLUoxetine (PROZAC) 20 MG tablet Take 20 mg by mouth daily montelukast (SINGULAIR) 10 MG tablet Take 10 mg by mouth nightly vqysiufvjvg-ihzutnpbx-mfmjhp (TRELEGY ELLIPTA) 100-62.5-25 MCG/INH AEPB Inhale 1 puff into the lungs daily atorvastatin (LIPITOR) 80 MG tablet Take 80 mg by mouth daily albuterol (PROVENTIL) (2.5 MG/3ML) 0.083% nebulizer solution Take 2.5 mg by nebulization every 6 hours as needed for Wheezing atorvastatin (LIPITOR) tablet 80 mg, Nightly montelukast (SINGULAIR) tablet 10 mg, Nightly sodium chloride flush 0.9 % injection 10 mL, 2 times per day sodium chloride flush 0.9 % injection 10 mL, PRN acetaminophen (TYLENOL) tablet 650 mg, Q6H PRN Or acetaminophen (TYLENOL) suppository 650 mg, Q6H PRN polyethylene glycol (GLYCOLAX) packet 17 g, Daily PRN promethazine (PHENERGAN) tablet 12.5 mg, Q6H PRN Or ondansetron (ZOFRAN) injection 4 mg, Q6H PRN famotidine (PEPCID) tablet 20 mg, BID enoxaparin (LOVENOX) injection 40 mg, Daily potassium chloride (KLOR-CON M) extended release tablet 40 mEq, PRN Or potassium bicarb-citric acid (EFFER-K) effervescent tablet 40 mEq, PRN Or potassium chloride 10 mEq/100 mL IVPB (Peripheral Line), PRN lisinopril (PRINIVIL;ZESTRIL) tablet 5 mg, Daily furosemide (LASIX) injection 40 mg, BID potassium chloride (KLOR-CON M) extended release tablet 20 mEq, Nightly FLUoxetine (PROZAC) capsule 20 mg, Nightly dilTIAZem (CARDIZEM CD) extended release capsule 240 mg, Nightly aspirin EC tablet 81 mg, Nightly rqkblyookoc-ljskajvjz-lmsewm (TRELEGY ELLIPTA) 100-62.5-25 MCG/INH inhaler 1 puff, Nightly albuterol sulfate HFA 108 (90 Base) MCG/ACT inhaler 2 puff, 4x daily albuterol sulfate HFA 108 (90 Base) MCG/ACT inhaler 2 puff, Q6H PRN FAMILY HISTORY: Reviewed but non-contributory PHYSICAL EXAM: BP 109/63 Pulse 78 Temp 98.3 F (36.8 C) (Oral) Resp 16 Ht 5' 6 (1.676 m) Wt 225 lb 8 oz (102.3 kg) SpO2 94% BMI 36.40 kg/m Body mass index is 36.4 kg/m . [ INSTRUCTIONS: [x] Indicates a positive item [] Indicates a negative item Vital Signs: (As obtained by patient/caregiver or practitioner observation) Blood pressure- Heart rate- Respiratory rate- Temperature- Pulse oximetry- Constitutional: [x] Appears well-developed and well-nourished [x] No apparent distress [] Abnormal- Mental status [x] Alert and awake [x] Oriented to person/place/time [x]Able to follow commands Eyes: EOM [x] Normal [] Abnormal- Sclera [x] Normal [] Abnormal - Discharge [x] None visible [] Abnormal - HENT: [x] Normocephalic, atraumatic. [] Abnormal [] Mouth/Throat: Mucous membranes are moist. External Ears [x] Normal [] Abnormal- Neck: [x] No visualized mass Pulmonary/Chest: [x] Respiratory effort normal. [x] No visualized signs of difficulty breathing or respiratory distress [] Abnormal- Neurological: [x] No Facial Asymmetry (Cranial nerve 7 motor function) (limited exam to video visit) [] No gaze palsy [] Abnormal- Skin: [x] No significant exanthematous lesions or discoloration noted on facial skin [] Abnormal- Psychiatric: [x] Normal Affect [] No Hallucinations [] Abnormal- Other pertinent observable physical exam findings: None MOST RECENT LABS ON RECORD: Lab Results Component Value Date WBC 7.7 08/27/2019 HGB 10.8 (L) 08/27/2019 HCT 38.2 08/27/2019 PLT See Reflexed IPF Result 08/27/2019 CHOL 110 08/27/2019 TRIG 109 08/27/2019 HDL 26 (L) 08/27/2019 LDLCHOLESTEROL 62 08/27/2019 ALT 14 08/26/2019 AST 24 08/26/2019 NA 137 08/27/2019 K 3.7 08/27/2019 CL 96 (L) 08/27/2019 CREATININE 0.80 08/27/2019 BUN 18 08/27/2019 CO2 29 08/27/2019 TSH 1.96 08/26/2019 INR 1.0 10/16/2011 ASSESSMENT: Patient Active Problem List Diagnosis Date Noted PAF (paroxysmal atrial fibrillation) ([facility]) 07/19/2019 Priority: High Aortic stenosis, severe 07/19/2019 Priority: High Hypomagnesemia 08/27/2019 Priority: Low Acute respiratory failure with hypoxia ([facility]) 08/27/2019 Priority: Low Acute on chronic combined systolic and diastolic CHF (congestive heart failure) ([facility]) 08/26/2019 Priority: Low Hypoxia 08/26/2019 Priority: Low Suspected COVID-19 virus infection 08/26/2019 Priority: Low Aortic stenosis 07/19/2019 Priority: Low Acute on chronic diastolic HF (heart failure) ([facility]) 07/18/2019 Priority: Low PLAN: ? Acute on chronic diastolic heart failure: [place] Heart Association Class: IV (Severe limitations, symptoms even at rest) ? Beta Jalen: Not indicated at this time. ? SVETLANA Inibitor/ARB: Continue lisinopril 5 mg daily. ? Diuretics: Continue furosemide (Lasix) 40 mg IV 2 times daily. ? Heart failure counseling: I advised them to try and keep their legs up whenever possible and to limit salt in their diet. Reported history of severe Aortic Stenosis: symptomatic. I discussed her severe aortic stenosis andtold her that I spoke with Dr. Brumfield regarding her condition. He was in agreement with the need to get this taken care of SIVA. Ms. Dawson was very happy to hear this and said that she would like to proceed SIVA. I also discussed the likely need to to a ARIA, prior to having this done as well as a CT of the chest which we will plan to arrange. Beta Jalen: Not indicated at this time. SVETLANA Inibitor/ARB: Continue lisinopril 5 mg daily. Diuretics: Continue furosemide (Lasix) 40 mg IV 2 times daily. I advised them to try and keep their legs up whenever possible and to limit salt in their diet. Additional Testing List: I ordered a echocardiogram to better assess for the etiology of this problem and to help guide future management ? Atherosclerotic Heart Disease: History of Stents in the past ? Antiplatelet Agent: Continue Aspirin 81 mg daily. ? Beta Jalen: Not indicated at this time. ? Anti-anginal medications: Continue diltiazem CD (Cardizem CD) 240 mg once daily. ? Cholesterol Reduction Therapy: Continue Atorvastatin (Lipitor) 80 mg daily. Once again, thank you for allowing me to participate in this patients care. Please do not hesitate to contact me if I could be of any further assistance. Sincerely, Jean Borrero MD, MS, F.A.C.C. [facility] [employer] [address] [place] [address] , I believe that the risk of significant morbidity and mortality related to the patient's current medical conditions are: IntermediateRich Dawson is a 63 y.o. female being evaluated by a Virtual Visit (video visit) encounterto address concerns as mentioned above. A caregiver was present when appropriate. Due to this beinga TeleHealth encounter (During COVID- 19 public health emergency), evaluation of the following organsystems was limited: Vitals/Constitutional/EENT/Resp/CV/GI//MS/Neuro/Skin/Adzm-Tqpzh-Fql. Pursuant to the emergency declaration under the [place] Act and the National Emergencies Act, 1135 waiver authority and the Coronavirus Preparedness and Response Supplemental Appropriations Act, this Virtual Visit was conducted with patient's (and/or legal guardian's) consent, to reduce the patient's riskof exposure to COVID-19 and provide necessary medical care. The patient (and/or legal guardian) hasalso been advised to contact this office for worsening conditions or problems, and seek emergency medical treatment and/or call 911 if deemed necessary. Services were provided through a video synchronous discussion virtually to substitute for in-personclinic visit. Patient and provider were located at their individual homes. --JEAN BORRERO MD on 08/27/2019 at 5:44 PM An electronic signature was used to authenticate this note. * Roland Casey MD - 08/27/2019 11:58 AM EDT Progress Note Roland Casey MD SUBJECTIVE: Patient is seen for Principal Problem: Acute on chronic combined systolic and diastolic CHF (congestive heart failure) ([facility]) Active Problems: PAF (paroxysmal atrial fibrillation) ([facility]) Aortic stenosis, severe Hypoxia Hypomagnesemia Acute respiratory failure with hypoxia ([facility]) Suspected COVID-19 virus infection Resolved Problems: * No resolved hospital problems. * patient breathing better Has some improvement in shortness of breath No chest pain covid test pending OBJECTIVE: Vitals: Vitals: 08/27/19 1055 BP: Pulse: Resp: 18 Temp: SpO2: 92% Weight: 225 lb 8 oz (102.3 kg) Height: 5' 6 (167.6 cm) Exam: CONSTITUTIONAL: awake, alert, cooperative, no apparent distress, and appears stated age EYES: Lids and lashes normal, pupils equal, round and reactive to light, extra ocular muscles intact, sclera clear, conjunctiva normal ENT: Normocephalic, without obvious abnormality, atraumatic, sinuses nontender on palpation, external ears without lesions, oral pharynx with moist mucus membranes, tonsils without erythema or exudates, gums normal and good dentition. NECK: Supple, symmetrical, trachea midline, no adenopathy, thyroid symmetric, not enlarged and no tenderness, skin normal HEMATOLOGIC/LYMPHATICS: no cervical lymphadenopathy LUNGS: Has diminished air entry bilat and basal rales,no wheezes or retractions CARDIOVASCULAR: S1,s2,2/6 murmer,no gallop ABDOMEN: Soft,non tender MUSCULOSKELETAL: there is no redness, warmth, or swelling of the joints NEUROLOGIC: Awake, alert, oriented to name, place and time. Cranial nerves II- XII are grossly intact. Motor is 5 out of 5 bilaterally. SKIN: no bruising or bleeding EXT: no cyanosis, clubbing or edema present Diagnostic Data: Reviewed More Recent Labs: Results for orders placed or performed during the hospital encounter of 08/26/19 CBC Auto Differential Result Value Ref Range WBC 12.5 (H) 3.5 - 11.3 k/uL RBC 5.72 (H) 3.95 - 5.11 m/uL Hemoglobin 12.3 11.9 - 15.1 g/dL Hematocrit 43.5 36.3 - 47.1 % MCV 76.0 (L) 82.6 - 102.9 fL MCH 21.5 (L) 25.2 - 33.5 pg MCHC 28.3 (L) 28.4 - 34.8 g/dL RDW 19.3 (H) 11.8 - 14.4 % Platelets See Reflexed IPF Result 138 - 453 k/uL MPV NOT REPORTED 8.1 - 13.5 fL NRBC Automated 0.0 0.0 per 100 WBC Differential Type NOT REPORTED WBC Morphology NOT REPORTED RBC Morphology NOT REPORTED Platelet Estimate NOT REPORTED Seg Neutrophils 73 (H) 36 - 65 % Lymphocytes 19 (L) 24 - 43 % Monocytes 7 3 - 12 % Eosinophils % 1 1 - 4 % Immature Granulocytes 0 0 % Basophils 0 0 - 2 % Segs Absolute 9.11 (H) 1.50 - 8.10 k/uL Absolute Lymph # 2.38 1.10 - 3.70 k/uL Absolute [place] # 0.88 0.10 - 1.20 k/uL Absolute Eos # 0.13 0.00 - 0.44 k/uL Absolute Immature Granulocyte 0.00 0.00 - 0.30 k/uL Basophils Absolute 0.00 0.0 - 0.2 k/uL Morphology HYPOCHROMASIA PRESENT Comprehensive Metabolic Panel w/ Reflex to MG Result Value Ref Range Glucose 175 (H) 70 - 99 mg/dL BUN 16 8 - 23 mg/dL CREATININE 0.76 0.50 - 0.90 mg/dL Bun/Cre Ratio 21 (H) 9 - 20 Calcium 9.4 8.6 - 10.4 mg/dL Sodium 138 135 - 144 mmol/L Potassium 4.2 3.7 - 5.3 mmol/L Chloride 97 (L) 98 - 107 mmol/L CO2 30 20 - 31 mmol/L Anion Gap 11 9 - 17 mmol/L Alkaline Phosphatase 80 35 - 104 U/L ALT 14 5 - 33 U/L AST 24 <32 U/L Total Bilirubin 0.84 0.3 - 1.2 mg/dL Total Protein 8.0 6.4 - 8.3 g/dL Alb 3.8 3.5 - 5.2 g/dL Albumin/Globulin Ratio 0.9 (L) 1.0 - 2.5 GFR Non- >60 >60 mL/min GFR >60 >60 mL/min GFR Comment GFR Staging Troponin Result Value Ref Range Troponin, High Sensitivity 55 (HH) 0 - 14 ng/L Troponin T NOT REPORTED <0.03 ng/mL Troponin Interp NOT REPORTED Brain Natriuretic Peptide Result Value Ref Range Pro-BNP 7,259 (H) <300 pg/mL BNP Interpretation Pro-BNP Reference Range: Immature Platelet Fraction Result Value Ref Range Platelet, Immature Fraction 10.3 1.1 - 10.3 % Platelet, Fluorescence 154 138 - 453 k/uL Troponin Result Value Ref Range Troponin, High Sensitivity 53 (HH) 0 - 14 ng/L Troponin T NOT REPORTED <0.03 ng/mL Troponin Interp NOT REPORTED Urinalysis Reflex to Culture Result Value Ref Range Color, UA YELLOW YELLOW Turbidity UA CLEAR CLEAR Glucose, Ur NEGATIVE NEGATIVE Bilirubin Urine NEGATIVE NEGATIVE Ketones, Urine NEGATIVE NEGATIVE Specific [place], UA 1.015 1.010 - 1.020 Urine Hgb 1+ (A) NEGATIVE pH, UA 6.0 5.0 - 9.0 Protein, UA 2+ (A) NEGATIVE Urobilinogen, Urine Normal Normal Nitrite, Urine NEGATIVE NEGATIVE Leukocyte Esterase, Urine NEGATIVE NEGATIVE Urinalysis Comments NOT REPORTED Microscopic Urinalysis Result Value Ref Range - WBC, UA 0 TO 2 0 - 5 /HPF RBC, UA 2 TO 5 0 - 2 /HPF Casts UA NOT REPORTED /LPF Crystals, UA NOT REPORTED None /HPF Epithelial Cells UA 0 TO 2 0 - 25 /HPF Renal Epithelial, UA NOT REPORTED 0 /HPF Bacteria, UA NOT REPORTED None Mucus, UA NOT REPORTED None Trichomonas, UA NOT REPORTED None Amorphous, UA NOT REPORTED None Other Observations UA NOT REPORTED NOT REQ. Yeast, UA NOT REPORTED None TSH Result Value Ref Range TSH 1.96 0.30 - 5.00 mIU/L T4, free Result Value Ref Range Thyroxine, Free 1.33 0.93 - 1.70 ng/dL COVID-19 Result Value Ref Range SARS-CoV-2 PENDING Source .NASOPHARYNGEAL SWAB SARS-CoV-2, PCR Basic Metabolic Panel Result Value Ref Range Glucose 133 (H) 70 - 99 mg/dL BUN 18 8 - 23 mg/dL CREATININE 0.80 0.50 - 0.90 mg/dL Bun/Cre Ratio 23 (H) 9 - 20 Calcium 9.6 8.6 - 10.4 mg/dL Sodium 137 135 - 144 mmol/L Potassium 3.7 3.7 - 5.3 mmol/L Chloride 96 (L) 98 - 107 mmol/L CO2 29 20 - 31 mmol/L Anion Gap 12 9 - 17 mmol/L GFR Non- >60 >60 mL/min GFR >60 >60 mL/min GFR Comment GFR Staging Magnesium Result Value Ref Range Magnesium 1.5 (L) 1.6 - 2.6 mg/dL Lipid panel - fasting Result Value Ref Range Cholesterol 110 <200 mg/dL HDL 26 (L) >40 mg/dL LDL Cholesterol 62 0 - 130 mg/dL Chol/HDL Ratio 4.2 <5 Triglycerides 109 <150 mg/dL VLDL NOT REPORTED 1 - 30 mg/dL CBC auto differential Result Value Ref Range WBC 7.7 3.5 - 11.3 k/uL RBC 4.99 3.95 - 5.11 m/uL Hemoglobin 10.8 (L) 11.9 - 15.1 g/dL Hematocrit 38.2 36.3 - 47.1 % MCV 76.6 (L) 82.6 - 102.9 fL MCH 21.6 (L) 25.2 - 33.5 pg MCHC 28.3 (L) 28.4 - 34.8 g/dL RDW 18.6 (H) 11.8 - 14.4 % Platelets See Reflexed IPF Result 138 - 453 k/uL MPV NOT REPORTED 8.1 - 13.5 fL NRBC Automated 0.0 0.0 per 100 WBC Differential Type NOT REPORTED WBC Morphology NOT REPORTED RBC Morphology NOT REPORTED Platelet Estimate NOT REPORTED Seg Neutrophils 69 (H) 36 - 65 % Lymphocytes 18 (L) 24 - 43 % Monocytes 10 3 - 12 % Eosinophils % 2 1 - 4 % Immature Granulocytes 0 0 % Basophils 1 0 - 2 % Segs Absolute 5.31 1.50 - 8.10 k/uL Absolute Lymph # 1.39 1.10 - 3.70 k/uL Absolute [place] # 0.77 0.10 - 1.20 k/uL Absolute Eos # 0.15 0.00 - 0.44 k/uL Absolute Immature Granulocyte 0.00 0.00 - 0.30 k/uL Basophils Absolute 0.08 0.00 - 0.20 k/uL Morphology HYPOCHROMASIA PRESENT Immature Platelet Fraction Result Value Ref Range Platelet, Immature Fraction 10.0 1.1 - 10.3 % Platelet, Fluorescence 151 138 - 453 k/uL EKG 12 Lead Result Value Ref Range Ventricular Rate 97 BPM Atrial Rate 97 BPM P-R Interval 146 ms QRS Duration 174 ms Q-T Interval 402 ms QTc Calculation (Bazett) 510 ms R Ada 147 degrees T Ada -29 degrees ASSESSMENT: Patient Active Problem List Diagnosis Date Noted PAF (paroxysmal atrial fibrillation) ([facility]) 07/19/2019 Priority: High Aortic stenosis, severe 07/19/2019 Priority: High Hypomagnesemia 08/27/2019 Acute respiratory failure with hypoxia ([facility]) 08/27/2019 Acute on chronic combined systolic and diastolic CHF (congestive heart failure) ([facility]) 08/26/2019 Hypoxia 08/26/2019 Suspected COVID-19 virus infection 08/26/2019 Aortic stenosis 07/19/2019 Acute on chronic diastolic HF (heart failure) ([facility]) 07/18/2019 PLAN: Acute combined chf- continue diuresis,monitor electrolytes and renal function Acute respiratory failure with hypoxia- improving Hypomagnesemia- add mag sulph PAF- rate well controlled Total time spent 35 min Roland Casey M.D. * Alondra Oakes - 08/27/2019 11:34 AM EDT RESPIRATORY ASSESSMENT PROTOCOL Patient Name: Samreen Dawson Room#: 0314/0314-01 : 1955 Admitting diagnosis: CHF (congestive heart failure), NYHA class I, acute on chronic, combined (HCC)[I50.43] PATIENT ASSESSMENT LABORATORY DATA Hematology: Lab Results Component Value Date WBC 7.7 08/27/2019 RBC 4.99 08/27/2019 RBC 4.68 10/16/2011 HGB 10.8 08/27/2019 HCT 38.2 08/27/2019 PLT See Reflexed IPF Result 08/27/2019 Chemistry: No results found for: PHART, SSU1QNP, PO2ART, [id number], [id number], BEART Blood Culture: Sputum Culture: VITALS Pulse: 86 Resp: 18 BP: 128/75 SpO2: 92 % Temp: 98 F (36.7 C) Comment: SKIN COLOR [] Normal [] Pale [] Dusky [] Cyanotic RESPIRATORY PATTERN [x] Normal [] Dyspnea [] Jama-Sal[place] [] Kussmaul [] Biots AMBULATORY [x] Yes [] No [] With Assistance PEAK FLOW Predicted: Personal Best: VITAL CAPACITY Predicted value: ml Actual Value: Ml 30% of Predicted: ml Patient Acuity 0 1 2 3 4 Score Level of Concious (LOC) [x] Alert & Oriented [] Confused;follows directions [] Confused & uncooper-ative [] Obtunded [] Comatose 0 Respiratory Rate (RR) [x] Reg. rate & pattern. 12 - 20 bpm [] Increased RR. Greater than 20 bpm [] SOB w/ exertion or RR greater than 24 bpm [] Access- ory muscle use at rest. Abn. resp. [] SOB at rest. 0 Bilateral Breath Sounds (BBS) [] Clear [] Diminish-ed bases [] Diminish-ed t/o, or rales [x] Sporadic, scattered wheezes or rhonchi [] Persistentwheezes and, or absent BBS 3 Cough [x] Strong, effective, & non-prod. [] Effective & prod. Less than 25 ml (2 TBSP) over past 24 hrs [] Ineffective & non-prod to less than 25 ML over past 24 hrs [] Ineffective and, or greater than 25 ml sputum prod. past 24 hrs. [] Nonspon- taneous; Requires suctioning 0 Pulmonary History (PULM HX) [] No smoking and no chronic pulmonaryhistory [] Former smoker. Quit over 12 mos. ago [] Current smoker or quit w/ in 12 mos [] COPD and, or 20 pk/yr smoking hx [x] Admitted w/ acute pulm. dx and, or has been admitted w/ pulm. dx 2 or more times over past 12 mos 4 Surgical History this Admit (SURG HX) [x] No surgery [] General surgery [] Lower abdominal [] Thoracic or upper abdominal [] Thoracic w/ pulm. disease 0 Chest X-Ray (CXR) [] Clear [] Not available [] Atelect- asis or pleural effusions [] Localized infiltrate or pulm. edema [x] Con-solidated Infiltrates, bilateral, or in more than 1 lobe 4 Slow or Forced VC, FEV1 OR PEFR (PULM FXN) [x] 80% or greater, or not indicated [] Pt. unable to perform [] FEV1 or PEFR or VC 51-79%. [] FEV1 or PEFR or VC 30-49% [] FEV1 or PEFR or VC less than 30% 0 TOTAL ACUITY: 11 CARE PLAN If Acuity Level is 2, 3, or 4 in any of the following: [x] BILATERAL BREATH SOUNDS (BBS) [x] PULMONARY HISTORY (PULM HX) [] PULMONARY FUNCTION (PULM FX) Goal: Improve respiratory functions in patients with airway disease and decrease WOB [x] AEROSOL PROTOCOL Total Acuity: 16-32 [] Secondary Assessment in 24 hrs Total Acuity: 9-15 [x] Secondary Assessment in 24 hrs Total Acuity: 4-8 [] Secondary Assessment in 48 hrs Total Acuity: 0-3 [] Secondary Assessment in 72 hrs HHN AEROSOL THERAPY with [physician-ordered bronchodilator(s)] q 4 hrs & PRN. Breath-Actuated Neb if BBS Acuity = 4, and pt. can use MP. Notify physician if condition deteriorates. HHN AEROSOL THERAPY with [physician-ordered bronchodilator(s)] QID and PRN. Breath-Actuated Neb if BBS Acuity = 4, and pt. can use MP. Notify physician if condition deteriorates. MDI THERAPY with 2 actuations of [physician-ordered bronchodilator(s)] via spacer TID and PRN. If unable to utilize MDI: HHN [physician-ordered bronchodilator(s)] TID and PRN. Notify physician if condition deteriorates. MDI THERAPY with [physician-ordered bronchodilator(s)] via spacer TID PRN. If unable to utilize MDI: HHN [physician-ordered bronchodilator(s)] TID PRN. Notify physician if condition deteriorates. If Acuity Level is 2, 3, or 4 in any of the following: [] COUGH [] SURGICAL HISTORY (SURG HX) [x] CHEST XRAY (CXR) Goal: Improvement in sputum mobilization in patients with ineffective airway clearance. Reverse atelectasis. [x] Bronchopulmonary Hygiene Protocol Total Acuity: 16-32 [] Secondary Assessment in 24 hrs Total Acuity: 9-15 [x] Secondary Assessment in 24 hrs Total Acuity: 4-8 [] Secondary Assessment in 48 hrs Total Acuity: 0-3 [] Secondary Assessment in 72 hrs METANEB QID with [physician-ordered bronchodilator(s)] if CXR Acuity = 4; otherwise: PD&P, PEP, or Vest QID & PRN NT Sxn PRN for ineffective cough METANEB QID with [physician-ordered bronchodilator(s)] if CXR Acuity = 4; otherwise: PD&P, PEP, or Vest TID & PRN NT Sxn PRN for ineffective cough Instruct patient to self-perform IS q1hr WA Directed Cough self-performed q1hr WA If Acuity Level is 2 in the following: [] PULMONARY HISTORY (PULM HX) Goal: Assist patient in quitting smoking to slow or stop the progression of lung disease. [] Smoking Cessation Protocol Total Acuity: 16-32 [] Secondary Assessment in 24 hrs Total Acuity: 9-15 [] Secondary Assessment in 24 hrs Total Acuity: 4-8 [] Secondary Assessment in 48 hrs Total Acuity: 0-3 [] Secondary Assessment in 72 hrs SMOKING CESSATION EDUCATION provided according to policy RT_201 ([place] one): Yes No NA SMOKING CESSATION EDUCATION provided according to policy RT_201 ([place] one): Yes No NA SMOKING CESSATION EDUCATION provided according to policy RT_201 ([place] one): Yes No NA SMOKING CESSATION EDUCATION provided according to policy RT_201 ([place] one): Yes No NA * Katherin Villaseñor RN - 08/26/2019 4:[address] Casey at patient bedside at this time. * Katherin Villaseñor RN - 08/26/2019 4:[address] Borrero at patient bedside at this time. * Katherin Villaseñor RN - 08/26/2019 4:30 PM EDT Patient reassessed at this time. Reassessment is unchanged from initial assessment.zDNR bad appliedper order. Pt continues to deny any pain or SOB. Oxygen remains at 4L via N/C. Urine hat emptied and patient left with call light within reach. * Alondra Oakes - 08/26/2019 3:43 PM EDT RESPIRATORY ASSESSMENT PROTOCOL Patient Name: Samreen Dawson Room#: 0314/0314-01 : 1955 Admitting diagnosis: CHF (congestive heart failure), NYHA class I, acute on chronic, combined (HCC)[I50.43] PATIENT ASSESSMENT LABORATORY DATA Hematology: Lab Results Component Value Date WBC 12.5 08/26/2019 RBC 5.72 08/26/2019 RBC 4.68 10/16/2011 HGB 12.3 08/26/2019 HCT 43.5 08/26/2019 PLT See Reflexed IPF Result 08/26/2019 Chemistry: No results found for: PHART, RUI9ADU, PO2ART, M9ELGICX, [id number], BEART Blood Culture: Sputum Culture: VITALS Pulse: 92 Resp: 20 BP: 130/70 SpO2: 98 % Temp: 97.9 F (36.6 C) Comment: SKIN COLOR [x] Normal [] Pale [] Dusky [] Cyanotic RESPIRATORY PATTERN [x] Normal [] Dyspnea [] [place] [] Kussmaul [] Biots AMBULATORY [x] Yes [] No [] With Assistance PEAK FLOW Predicted: Personal Best: VITAL CAPACITY Predicted value: ml Actual Value: ml 30% of Predicted: ml Patient Acuity 0 1 2 3 4 Score Level of Concious (LOC) [x] Alert & Oriented [] Confused;follows directions [] Confused & uncooper-ative [] Obtunded [] Comatose 0 Respiratory Rate (RR) [] Reg. rate & pattern. 12 - 20 bpm [x] Increased RR. Greater than 20 bpm [] SOB w/ exertion or RR greater than 24 bpm [] Access- ory muscle use at rest. Abn. resp. [] SOB at rest. 1 Bilateral Breath Sounds (BBS) [] Clear [] Diminish-ed bases [] Diminish-ed t/o, or rales [] Sporadic, scattered wheezes or rhonchi [x] Persistentwheezes and, or absent BBS 4 Cough [x] Strong, effective, & non-prod. [] Effective & prod. Less than 25 ml (2 TBSP) over past 24 hrs [] Ineffective & non-prod to less than 25 ML over past 24 hrs [] Ineffective and, or greater than 25 ml sputum prod. past 24 hrs. [] Nonspon- taneous; Requires suctioning 0 Pulmonary History (PULM HX) [] No smoking and no chronic pulmonaryhistory [x] Former smoker. Quit over 12 mos. ago [] Current smoker or quit w/ in 12 mos [] COPD and, or 20 pk/yr smoking hx [] Admitted w/ acute pulm. dx and, or has been admitted w/ pulm. dx 2 or more times over past 12 mos 1 Surgical History this Admit (SURG HX) [x] No surgery [] General surgery [] Lower abdominal [] Thoracic or upper abdominal [] Thoracic w/ pulm. disease 0 Chest X-Ray (CXR) [] Clear [] Not available [] Atelect- asis or pleural effusions [] Localized infiltrate or pulm. edema [x] Con-solidated Infiltrates, bilateral, or in more than 1 lobe 4 Slow or Forced VC, FEV1 OR PEFR (PULM FXN) [] 80% or greater, or not indicated [] Pt. unable to perform [] FEV1 or PEFR or VC 51-79%. [] FEV1 or PEFR or VC 30-49% [] FEV1 or PEFR or VC less than 30% 0 TOTAL ACUITY: 10 CARE PLAN If Acuity Level is 2, 3, or 4 in any of the following: [x] BILATERAL BREATH SOUNDS (BBS) [] PULMONARY HISTORY (PULM HX) [] PULMONARY FUNCTION (PULM FX) Goal: Improve respiratory functions in patients with airway disease and decrease WOB [] AEROSOL PROTOCOL Total Acuity: 16-32 [] Secondary Assessment in 24 hrs Total Acuity: 9-15 [x] Secondary Assessment in 24 hrs Total Acuity: 4-8 [] Secondary Assessment in 48 hrs Total Acuity: 0-3 [] Secondary Assessment in 72 hrs HHN AEROSOL THERAPY with [physician-ordered bronchodilator(s)] q 4 hrs & PRN. Breath-Actuated Neb if BBS Acuity = 4, and pt. can use MP. Notify physician if condition deteriorates. HHN AEROSOL THERAPY with [physician-ordered bronchodilator(s)] QID and PRN. Breath-Actuated Neb if BBS Acuity = 4, and pt. can use MP. Notify physician if condition deteriorates. MDI THERAPY with 2 actuations of [physician-ordered bronchodilator(s)] via spacer TID and PRN. If unable to utilize MDI: HHN [physician-ordered bronchodilator(s)] TID and PRN. Notify physician if condition deteriorates. MDI THERAPY with [physician-ordered bronchodilator(s)] via spacer TID PRN. If unable to utilize MDI: HHN [physician-ordered bronchodilator(s)] TID PRN. Notify physician if condition deteriorates. If Acuity Level is 2, 3, or 4 in any of the following: [] COUGH [] SURGICAL HISTORY (SURG HX) [x] CHEST XRAY (CXR) Goal: Improvement in sputum mobilization in patients with ineffective airway clearance. Reverse atelectasis. [x] Bronchopulmonary Hygiene Protocol Total Acuity: 16-32 [] Secondary Assessment in 24 hrs Total Acuity: 9-15 [x] Secondary Assessment in 24 hrs Total Acuity: 4-8 [] Secondary Assessment in 48 hrs Total Acuity: 0-3 [] Secondary Assessment in 72 hrs METANEB QID with [physician-ordered bronchodilator(s)] if CXR Acuity = 4; otherwise: PD&P, PEP, or Vest QID & PRN NT Sxn PRN for ineffective cough METANEB QID with [physician-ordered bronchodilator(s)] if CXR Acuity = 4; otherwise: PD&P, PEP, or Vest TID & PRN NT Sxn PRN for ineffective cough Instruct patient to self-perform IS q1hr WA Directed Cough self-performed q1hr WA If Acuity Level is 2 in the following: [] PULMONARY HISTORY (PULM HX) Goal: Assist patient in quitting smoking to slow or stop the progression of lung disease. [] Smoking Cessation Protocol Total Acuity: 16-32 [] Secondary Assessment in 24 hrs Total Acuity: 9-15 [] Secondary Assessment in 24 hrs Total Acuity: 4-8 [] Secondary Assessment in 48 hrs Total Acuity: 0-3 [] Secondary Assessment in 72 hrs SMOKING CESSATION EDUCATION provided according to policy RT_201 ([place]): Yes No NA SMOKING CESSATION EDUCATION provided according to policy RT_201 ([place]): Yes No NA SMOKING CESSATION EDUCATION provided according to policy RT_201 ([place]): Yes No NA SMOKING CESSATION EDUCATION provided according to policy RT_201 ([place] one): Yes No NA * Mary Jo Dickens LSW - 08/26/2019 3:34 PM EDT JAVIER Osorio 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 [employer] ACP (Advance Care Planning) Signed Date of Service: 08/26/2019 3:00 PM Signed Show:Clear all [x]Manual[x]Template[]Copied Added by: [x]JAVIER Osorio []Phani for details Advance Care Planning Advance Care Planning Clinical Specialist Conversation Note Date of ACP Conversation: 08/26/2019 Conversation Conducted with: Patient with Decision Making Capacity Healthcare Decision Maker: Next of Kin by law (only applies in absence of above) ACP Clinical Specialist: Mary Jo Dickens *When Decision Maker makes decisions on behalf of the incapacitated patient: Decision Maker is asked to consider and make decisions based on patient values, known preferences, or best interests. Current Designated Health Care Decision Maker: (as entered in ACP Activity Healthcare Decision Maker field. Validate this information as still accurate & up-to-date; edit Healthcare Decision Maker field as needed.) If no Decision Maker listed above or available through scanned documents, then: Choose Health Care Decision Maker Who do you trust to make healthcare decisions for you? Name: Arlene Aleman Can this person be reached and be able to respond quickly, such as within a few minutes or hours? Yes Who would be your back-up decision maker? Name Carol Segura For below questions, when conducting conversation with Health Care Decision Maker, substitute she and her for you and your . Hospitalization If your health were to worsen and it became clear that your chance of recovery was unlikely, what would your preferences be regarding hospitalization?: Choice: [x]? The patient would want hospitalization []? The patient would prefer comfort-focused treatment without hospitalization. Ventilation If you were in your present state of health and suddenly became very ill and were unable to breatheon your own, what would your preference be about the use of a ventilator (breathing machine) if it were available to you? If patient would desire the use of a ventilator (breathing machine), answer yes , if not no :no If your health were to worsen and it became clear that your chance of recovery was unlikely, would that change your answer? No Resuscitation CPR works best to restart the heart when there is a sudden event, like a heart attack, in someone who is otherwise healthy. Unfortunately, CPR does not typically restart the heart for people who haveserious health conditions or who are very sick. In the event your heart stopped, would you want attempts to restart your heart (answer yes ) or would you prefer a natural (answer no )? no If your health were to worsen and it became clear that your chance of recovery was unlikely, would that change your answer? No [x]? Yes []? No Educated Patient / Decision Maker regarding differences between Advance Directives and portable DNR orders. Length of ACP Conversation in minutes: 10 minutes Conversation Outcomes: [x]? ACP discussion completed []? Existing advance directive reviewed with patient; no changes to patient's previously recorded wishes []? New Advance Directive completed [x]? Portable Do Not Rescitate prepared for Provider review and signature []? POLST/POST/MOLST/MOST prepared for Provider review and signature Follow-up plan: []? Schedule follow-up conversation to continue planning []? Referred individual to Provider for additional questions/concerns []? Advised patient/agent/surrogate to review completed ACP document and update if needed with changes in condition, patient preferences or care setting [x]? This note routed to one or more involved healthcare providers ACP (Advance Care Planning) Info Author Note Status Last Update User JAVIER Osorio Signed JAVIER Osorio Last Update Date/Time: 08/26/2019 3:15 PM Chart Review Routing History No routing history on file. * Katherin Villaseñor RN - 08/26/2019 3:27 PM EDT Cardiology consult called down to the office at this time. States will notify Dr. Borrero. * Mary Jo Dickens LSW - 08/26/2019 3:22 PM EDT Discussed discharge plans with the patient. Patient is a 63 year old female here with Acute on chronic combined systolic and diastolic CHF (congestive heart failure) (HCC) . She is alert and oriented. Patient is a and staying with her one daughter and family. She is in the process to have valve replacement done in [place]. Patient wears oxygen and has a scale to weight herself do to her CHF. She normally does her own cooking and cleaning. Patient is independent with her ADL's. She manages her own medications and drives. Her PCP is Tatiana Preston out [facility]. She has medical insurance that helps with medication costs. The discharge plan is home with no services at this time. She does not have advance directives but is interested in them. Referral made to pastoral care for advance directives. Patient wishes to be aDNR-CCA. Will inform the doctor of her wishes. TYPESETTER APPRENTICE to monitor and assist with any needs or concernsas they arise. JAVIER Osorio * Elise Maxwell RD, LD - 08/26/2019 12:58 PM EDT Nutrition Assessment Type and Reason for Visit: Initial, Positive Nutrition Screen, Consult(MST 3, c/s low sodium diet education) Nutrition Recommendations: 1. Continue 2 gm sodium diet, but add CC 4 carbs per meal. 2. Attach low sodium and CC diet information to d/c instructions. Nutrition Assessment: Altered nutrition related labs r/t cardiac dysfunction aeb BNP 7259, 2 gm sodium diet due to CHF. Pt is COVID-19 pending. Pt received low sodium diet instruction at 07/19/19 hospitalization. Noted 700ml output in ED after diuretic. Pt with no A1c noted. Glucose is 175. Pt wouldbenefit from addition of CC 4 carbs per meal to aid glycemic control. Pt with 5.4% weight loss x 1 month, would question if loss due to fluid and intended losses as at 07/18 visit Pt had reported trying to lose weight. Malnutrition Assessment: Malnutrition Status: At risk for malnutrition Context: Acute illness or injury Findings of the 6 clinical characteristics of malnutrition (Minimum of 2 out of 6 clinical characteristics is required to make the diagnosis of moderate or severe Protein Calorie Malnutrition based on AND/ASPEN Guidelines): 1. Energy Intake-Unable to assess, 2. Weight Loss-5% loss or greater, in 1 month 3. Fat Loss-Unable to assess, 4. Muscle Loss-Unable to assess, 5. Fluid Accumulation-No significant fluid accumulation, 6. Senior Accounts Payable Specialist Strength-Not measured Nutrition Risk Level: Moderate Nutrient Needs: Estimated Daily Total Kcal: 2771-8538(15-18/kg) Estimated Daily Protein (g): 83-94g(1.4-1.6g/kg) Estimated Daily Total Fluid (ml/day): 2034 ml Nutrition Diagnosis: Problem: Altered nutrition-related lab values Etiology: related to Cardiac dysfunction ? Signs and symptoms: as evidenced by Lab values(BNP 7259, Dx CHF, 2 gm sodium diet) Objective Information: Nutrition-Focused Physical Findings: unable to assess Wound Type: None Current Nutrition Therapies: Oral Diet Orders: 2gm Sodium Oral Diet intake: Unable to assess Oral Nutrition Supplement (ONS) Orders: None Anthropometric Measures: Ht: 5' 6 (167.6 cm) Current Body Wt: 224 lb 3.2 oz (101.7 kg) Admission Body Wt: 224 lb 1.2 oz (101.6 kg) Usual Body Wt: 236 lb 12.8 oz (107.4 kg)(07/21/19) % Weight Change: , 12.7#/5.4% weight loss x 1 month: ? fluid losses Poplar Body Wt: 130 lb (59 kg), % Poplar Body 173% BMI Classification: BMI 35.0 - 39.9 Obese Class II Recent Labs 08/26/19 0730 NA 138 K 4.2 CL 97* CO2 30 BUN 16 CREATININE 0.76 GLUCOSE 175* ALT 14 ALKPHOS 80 GFR Lab Results Component Value Date LABALBU 3.8 08/26/2019 LABALBU 4.4 10/16/2011 No results found for: LABA1C No results for input(s): POCGLU in the last 72 hours. Lab Results Component Value Date TRIG 254 10/16/2011 HDL 38 10/16/2011 LDLCALC 152 10/16/2011 Nutrition Interventions: Modify current diet(Add CC 4 carbs per meal to diet ) Continued Inpatient Monitoring, Education not appropriate at this time, Coordination of Care(attachlow sodium and CC diet information to d/c) Nutrition Evaluation: Evaluation: Goals set Goals: PO > 75% of meals with improved glycemic control and limitation of sodium to < 2,000 mg daily Monitoring: Meal Intake, I&O, Weight, Pertinent Labs, Patient/Family Education Contact Number: [phone] documented in this encounter* Cuca Bangura RN - 09/01/2019 4:18 PM EDT Patient discharged to home with daughter. Patient ambulatory and has all belongings. * Cuca Bangura RN - 09/01/2019 4:18 PM EDT Discharge instructions given to patient voices understanding. * Cuca Bangura RN - 09/01/2019 1:00 PM EDT Patient returned to pre/post area. Alert and oriented, denies pain. Right radial palpable distal topuncture site. Pressure dressing in place no redness/bleeding/swelling noted. documented in this encounter* Denisha Acuña RN - 07/21/2019 3:52 PM EDT Pt's daughter arrived to transport pt home. Pt d/c'd off unit at this time, via wheelchair, with daughter, to home. Belongings in hand. No issues noted. * Denisha Acuña RN - 07/21/2019 3:00 PM EDT [facility] arrived with pt's portable O2 tank, d/c off unit pending pt's transportation to arrive * Denisha Acuña RN - 07/21/2019 1:00 PM EDT Discharge instructions given to pt. No questions, pt verbalized understanding all instructions. Pt aware of follow up appointments as listed on AVS. Pt awaits delivery of portable O2 from [facility] before being discharged home. Call placed to [facility] for ETA, voicemail message left, await return call. * Melisa Goodrich RCP - 07/21/2019 11:40 AM EDT FACE TO FACE: Patient qualified for home oxygen. Discussed with the patient the medical necessity of home oxygen. Patient voiced understanding and agreement. Melisa Goodrich 07/21/2019, 11:40 AM * Melisa Goodrich RCP - 07/21/2019 7:11 AM EDT [facility] Cardiopulmonary Services [address] [place] [address] A home oxygen evaluation has been completed. [x]Patient is an inpatient. It is expected that the patient will be discharged within the next 48 hours. Qualified provider to write order for home prescription if patient qualifies. If patient is active, arrange for Home Medical supplier to assess for Oxygen Conserving Device per pulse oximetry. []Patient is an outpatient. Results will be faxed to the ordering provider. Qualified provider to write order for home prescription if patient qualifies and arranges for home oxygen. Patient was placed on room air for 120 minutes. SpO2 was 82 % on room air at rest. Patients SpO2 was above 88% and did qualify for home oxygen. O2 applied at 2LPM at rest to keep saturation above 89%. Patient was walked for 6 minutes. SpO2 was 91 % during walking. Patients SpO2 was below 89% and qualified for home oxygen. Oxygen was applied at 2 lpm via nasal cannula to maintain a SpO2 between 90-92% while walking. Actual SpO2 was 92 %. [employer] is the home care company patient chooses. I attest to the above results. * Valencia Knight RN - 07/21/2019 4:37 AM EDT Patient denies IV restart she states she may go home today. * Valencia Knight RN - 07/20/2019 7:00 PM EDT Patient sitting up in bed, one leg dangles. Patient still with 1l/nc. Patient assessment and vitalscompleted. Patient denies pain or SOB, no edema present. Patient denies any further needs at this time * Yaneth Rodriguez - 07/20/2019 3:32 PM EDT Echocardiogram/doppler done at bedside. Instructed on policies and procedures. * Denisha Acuña RN - 07/20/2019 2:54 PM EDT Attempted to wean O2 from 1LNC to RA, SpO2 87-89 on RA while sitting. Pt ambulated in hallway, approx 50 feet, O2 dropped to 81% on RA. Pt returned to room and placed back on 1LNC at this time. GABE Woods, informed. * Jean Borrero MD - 07/20/2019 8:35 AM EDT I, Sheryl Ferreira am scribing for and in the presence of Jean Borrero MD, MS, F.A.C.C. Patient: Samreen Dawson : 1955 Date of Admission: 07/18/2019 Primary Care Physician: MANJU PRESTON Today's Date: 07/20/2019 REASON FOR CONSULTATION: Shortness of Breath (ongoing for 1 month) HPI: Ms. Dawson is a 63 y.o. female who was admitted to the hospital with progressive increased shortness of breath. 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 She has a history of a pacemaker implant about a year ago for a rhythm issue per Ms. Dawson. She also reports ahistory of stents placed about 20 years ago. She also reports severe disease of her aortic valve and is in the process of being worked up for surgical correction of that. She has been told she has atrial fibrillation and her last occurrence was in March of 2019 whileshe was in the hospital however she denies ever having to be on a blood thinner or any recurrence since then. Ms. Dawson also reports having some chest pressure about once a day with exertion. She had stress test done last September at [facility] and says that she was told it was ok. She also has been told that she needs to get her aortic valve replaced. She reports doing well today and states she is at about 70% back to her normal as far as shortness of breath. She denied any current or recent chest pain, abdominal pain, bleeding problems, problems with her medications or any other concerns at this time. Past Medical History: Diagnosis Date Asthma Blood circulation, collateral Cerebral artery occlusion with cerebral infarction (HCC) CHF (congestive heart failure) (HCC) COPD (chronic obstructive pulmonary disease) (HCC) Diabetes mellitus (HCC) Hypertension CURRENT ALLERGIES: Benadryl [diphenhydramine] REVIEW OF SYSTEMS: 14 systems were reviewed. Pertinent positives and negatives as above, all else negative. Past Surgical History: Procedure Laterality Date ATRIAL ABLATION SURGERY 08/2018 CARDIAC SURGERY 03/2018 cardiac stents PACEMAKER PLACEMENT Left 09/2017 Social History: Social History Tobacco Use Smoking status: Current Every Day Smoker Packs/day: 1.00 Types: Cigarettes Smokeless tobacco: Never Used Tobacco comment: 40 year smoker Substance Use Topics Alcohol use: Not Currently Drug use: Never CURRENT MEDICATIONS: Outpatient Medications Marked as Taking for the 07/18/19 encounter (Hospital Encounter) Medication Sig Dispense Refill dilTIAZem (CARDIZEM) 60 MG tablet Take 60 mg by mouth daily Furosemide (LASIX PO) Take 20 mg by mouth daily aspirin 81 MG tablet Take 81 mg by mouth daily FLUoxetine (PROZAC) 20 MG tablet Take 20 mg by mouth daily montelukast (SINGULAIR) 10 MG tablet Take 10 mg by mouth nightly atorvastatin (LIPITOR) 80 MG tablet Take 80 mg by mouth daily albuterol (PROVENTIL) (2.5 MG/3ML) 0.083% nebulizer solution Take 2.5 mg by nebulization every 6 hours as needed for Wheezing albuterol sulfate HFA (VENTOLIN HFA) 108 (90 Base) MCG/ACT inhaler Inhale 2 puffs into the lungs every 6 hours as needed for Wheezing dilTIAZem (CARDIZEM CD) extended release capsule 120 mg, Daily albuterol sulfate HFA 108 (90 Base) MCG/ACT inhaler 2 puff, Q6H PRN aspirin EC tablet 81 mg, Daily atorvastatin (LIPITOR) tablet 80 mg, Daily FLUoxetine (PROZAC) capsule 20 mg, Daily wukfuvyeabt-kengqnzmu-bysqjb (TRELEGY ELLIPTA) 100-62.5-25 MCG/INH inhaler 1 puff, Daily montelukast (SINGULAIR) tablet 10 mg, Nightly sodium chloride flush 0.9 % injection 10 mL, 2 times per day sodium chloride flush 0.9 % injection 10 mL, PRN acetaminophen (TYLENOL) tablet 650 mg, Q6H PRN Or acetaminophen (TYLENOL) suppository 650 mg, Q6H PRN polyethylene glycol (GLYCOLAX) packet 17 g, Daily PRN promethazine (PHENERGAN) tablet 12.5 mg, Q6H PRN Or ondansetron (ZOFRAN) injection 4 mg, Q6H PRN enoxaparin (LOVENOX) injection 40 mg, Daily furosemide (LASIX) injection 40 mg, Daily FAMILY HISTORY: Reviewed but non-contributory PHYSICAL EXAM: BP 132/75 Pulse 86 Temp 96.6 F (35.9 C) (Temporal) Resp 18 Ht 5' 6 (1.676 m) Wt 235 lb 12.8 oz (107 kg) SpO2 91% BMI 38.06 kg/m Body mass index is 38.06 kg/m . Constitutional: She is oriented to person, place, and time. She appears well- developed and well-nourished. In no acute distress. HEENT: Normocephalic and atraumatic.No JVD present. Carotid bruit is not present. No mass and no thyromegaly present. No lymphadenopathy present. Cardiovascular: Normal rate, regular rhythm, normal heart sounds. Exam reveals no gallop and no friction rubs. 6/6 systolic murmur, 2nd intercostal space on the RIGHT just lateral to the sternum Pulmonary/Chest: Effort normal and breath sounds normal. No respiratory distress. She has no wheezes, rhonchi or rales. Abdominal: Soft, non-tender. Bowel sounds and aorta are normal. She exhibits noorganomegaly, mass or bruit. Extremities: Trace-1+ 1/2 up to the knees bilaterally. No cyanosis or clubbing. 2+ radial and carotid pulses. Distal extremity pulses: 2+ bilaterally. Neurological: She is alert and oriented to person, place, and time. No evidence of gross cranial nerve deficit. Coordination appeared normal. Skin: Skin is warm and dry. There is no rash or diaphoresis. Psychiatric: She has a normal mood and affect. Her speech is normal and behavior is normal. MOST RECENT LABS ON RECORD: Lab Results Component Value Date WBC 9.7 07/18/2019 HGB 11.2 (L) 07/18/2019 HCT 42.2 07/18/2019 PLT 176 07/18/2019 CHOL 231 (H) 10/16/2011 TRIG 254 (H) 10/16/2011 HDL 38 (L) 10/16/2011 ALT 17 10/16/2011 AST 23 10/16/2011 NA 138 07/20/2019 K 3.8 07/20/2019 CL 95 (L) 07/20/2019 CREATININE 0.96 (H) 07/20/2019 BUN 16 07/20/2019 CO2 36 (H) 07/20/2019 TSH 2.732 10/16/2011 INR 1.0 10/16/2011 ASSESSMENT: Patient Active Problem List Diagnosis Date Noted PAF (paroxysmal atrial fibrillation) ([facility]) 07/19/2019 Priority: High Severe aortic stenosis by prior echocardiogram 07/19/2019 Priority: High Aortic stenosis 07/19/2019 Acute on chronic diastolic HF (heart failure) ([facility]) 07/18/2019 PLAN: ? Acute on chronic diastolic heart failure: [place] Heart Association Class: III (Asymptomatic only at rest) ? Diuretics: Continue furosemide (Lasix) 40 mg every morning. I am ok with sending her home on a Lasix 20 mg daily potentially as soon as today but I think this depends on how she does on her feet today. ? Heart failure counseling: I advised them to try and keep their legs up whenever possible and to limit salt in their diet. Reported History of Severe Aortic Stenosis: possibly symptomatic Diuretics: Continue furosemide (Lasix) 40 mg every morning. Reduce to Lasix 20 mg daily as above. I advised them to try and keep their legs up whenever possible and to limit salt in their diet. Additional testing: [facility] and I will review those results. Assuming thisis not critical she can continue to follow up with her [employer] on the 28 of July. ? Atherosclerotic Heart Disease: History of Stents in the Past ? Antiplatelet Agent: Continue Aspirin 81 mg daily. ? Calcium Channel Jalen: INCREASE to diltiazem CD (Cardizem CD) 120 mg once daily. I also discussed the potential side effects of this medication including lightheadedness and dizziness and instructed them to stop the medication of this occurs and call our office if this occurs. ? Cholesterol Reduction Therapy: Continue Atorvastatin (Lipitor) 80 mg daily. Reported History of Atrial Fibrillation: Rate Control Calcium Channel Jalen: Increase dardizem CD 120 mg daily. Anticoagulation: I will leave this up to her previous sewer inspector at this time. She is scheduled to see Dr. Franklin on 07/28. Once again, thank you for allowing me to participate in this patients care. Please do not hesitate to contact me if I could be of any further assistance. Sincerely, Jean Borrero MD, MS, F.A.C.C. [facility] [employer] [address] [place] [address] , I believe that the risk of significant morbidity and mortality related to the patient's current medical conditions are: Intermediate. The documentation recorded by the scribe, accurately and completely reflects the services I personally performed and the decisions made by me. Jean Borrero MD, MS, F.A.C.C. July 20, 2019 * Caitie Castillo RN - 07/19/2019 2:18 PM EDT Cardiology office aware of consult, will notify physician. * Mary Jo Dickens LSW - 07/19/2019 1:17 PM EDT Discussed discharge plans with the patient. Patient is a 63 year old female here with Congestive heart failure, unspecified HF chronicity, unspecified heart failure type (HCC). She is alert and oriented. Patient is a and is staying with her daughter at this time. She uses a C- pap machine at home.Both the patient and her daughter do the cooking and the cleaning. She is independent with her ADL's. Patient manages her own medications and drives. Her PCP is Manju Preston. She has medical insurance that helps with medication costs. The discharge plan is home with no services. Patient knows the importance of weighing herself dailyand a low sodium diet do to her CHF. She does not feel she needs home health for follow up care of the CHF. She does not have advance directives. Patient is thinking about having them done. 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 JAVIER Osorio * Jackson Murrieta RD, LD - 07/19/2019 11:03 AM EDT Nutrition Assessment Type and Reason for Visit: Initial, Patient Education Nutrition Recommendations: Low sodium compliance Nutrition Assessment: Food and nutrition related knowledge deficit r/t cardiac dysfunction, AEB excess sodium in home diet. Reports not really using salt in addition to foods. Known CHF history. PO has improved to adequate volumes after reporting lesser intakes from SOB. Reports some intentional weight losses, but does not provide a recent weight to compare. Accepting of low sodium education. History of diabetes, not on hypoglycemic agents, and without A1C to eval usual control. Malnutrition Assessment: Malnutrition Status: No malnutrition Context: Acute illness or injury Findings of the 6 clinical characteristics of malnutrition (Minimum of 2 out of 6 clinical characteristics is required to make the diagnosis of moderate or severe Protein Calorie Malnutrition based on AND/ASPEN Guidelines): 1. Energy Intake-Greater than 75% of estimated energy requirement(less well logging captain mud analysis), 2. Weight Loss-Unable to assess, 3. Fat Loss-No significant subcutaneous fat loss, 4. Muscle Loss-No significant muscle mass loss, 5. Fluid Accumulation-No significant fluid accumulation, 6. Senior Accounts Payable Specialist Strength-Not measured Nutrition Risk Level: Moderate Nutrition Diagnosis: Problem: Food and nutrition-related knowledge deficit Etiology: related to Cardiac dysfunction ? Signs and symptoms: as evidenced by Other (Comment)(CHF) Objective Information: Nutrition-Focused Physical Findings: obese Wound Type: None Current Nutrition Therapies: Oral Diet Orders: No Added Salt (3-4gm) Oral Diet intake: 76-100% Oral Nutrition Supplement (ONS) Orders: None Anthropometric Measures: Ht: 5' 6 (167.6 cm) Current Body Wt: 241 lb 3.2 oz (109.4 kg) Admission Body Wt: 241 lb 3.2 oz (109.4 kg) Usual Body Wt: (cannot report) % Weight Change: , unknown Poplar Body Wt: 130 lb (59 kg), % Poplar Body 185% BMI Classification: BMI 35.0 - 39.9 Obese Class II Lab Results Component Value Date NA 138 07/19/2019 K 3.3 (L) 07/19/2019 CL 94 (L) 07/19/2019 CO2 31 07/19/2019 BUN 14 07/19/2019 CREATININE 1.01 (H) 07/19/2019 GLUCOSE 150 (H) 07/19/2019 CALCIUM 9.5 07/19/2019 PROT 7.4 10/16/2011 LABALBU 4.4 10/16/2011 ALKPHOS 71 10/16/2011 AST 23 10/16/2011 ALT 17 10/16/2011 LABGLOM 56 (L) 07/19/2019 GFRAA >60 07/19/2019 GLOB 3.0 10/16/2011 No results found for: LABA1C No results found for: EAG Nutrition Interventions: Continue current diet Continued Inpatient Monitoring, Coordination of Care, Education Initiated Nutrition Evaluation: Evaluation: Goals set Goals: PO >75% with lower sodium choices Monitoring: Meal Intake, Pertinent Labs, Weight, I&O, Patient/Family Education Contact Number: [phone] * Valencia Knight RN - 07/19/2019 4:03 AM EDT Patient awake in room, daily weight and I/O completed. Patient denies any pain or needs at this time * Valencia Knight RN - 07/19/2019 4:02 AM EDT Consult called and paper faxed to Dr Mock office at this time * Valencia Knight RN - 07/19/2019 12:34 AM EDT Patient to floor from ED at 2345, report called over phone. Patient has saline lock intact, telemetry applied, oxygen intact at 2l/nc. Patient transferred self from ED wheelchair to bed with some exertional SOB and noted cough. Patient denies any pain. Vitals and assessment were completed. Bed in low position, call light in reach. Patient able to self pivot to [facility]. She denies any further needs atthis time. documented in this encounter* Hussein Sams MD - 12/14/2019 11:54 AM EDT Patient was evaluated today for the diagnosis of COPD. I entered a DME order for home oxygen because the diagnosis and testing requires the patient to have supplemental oxygen. Condition will improveor be benefited by oxygen use. The patient is able to perform good mobility in a home setting and therefore does require the use of a portable oxygen system. The need for this equipment was discussedwith the patient and she understands and is in agreement. * Yanelis Cox RP - 12/14/2019 11:20 AM EDT CLINICAL PHARMACY: DISCHARGE MED RECONCILIATION/REVIEW [facility] Select Patient?: No Total # of Interventions Recommended: 0 - Total # Interventions Accepted: 0 Intervention Severity: - Level 1 Intervention Present?: No - Level 2 #: 0 - Level 3 #: 0 Time Spent (min): 30 Additional Documentation: Yanelis Cox PharmD 12/14/2019, 11:20 AM * Serg Choi - 12/14/2019 7:48 AM EDT [facility] INPATIENT PHYSICAL THERAPY EVALUATION STRZ CCU-STEPDOWN 3B - 3B-25/025-A Time In: 0748 Time Out: 08 Timed Code Treatment Minutes: 14 Minutes Minutes: 22 Date: 12/14/2019 Patient Name: Samreen Dawson, Gender: female : 1955 (63 y.o.) Referring Practitioner: Hussein Sams MD Diagnosis: acute respiratory failure with hypoxia Additional Pertinent Hx: Per H/P 12/10: 63 y.o. female with past medical history of asthma, CVA, CHF, COPD, diabetes mellitus, hyperlipidemia, hypertension, aortic stenosis, severe, multiple hospitalizations for CHF exacerbation who presented to [facility] with complaints of shortness of breath that were progressively getting worse. She was seen at the [place] emergency room for hersymptoms. Patient states that for 1 week she was getting progressive dyspnea on exertion associatedwith some chest pains at times. She takes Lasix at home when she tried doubling up on the dose which helped her minimally. When she was at rest her symptoms were variable but with exertion were worse. She is usually supposed to take her oxygen at nighttime but tried wearing it all the time again with minimal improvement. Patient is not a smoker but does have a significant other who smokes. She has been staying at home for a few months due to the [place] with situation as well as feeling tired.Her fianc has been mostly staying at home as well. Due to the worsening of her symptoms she came into the emergency room where she was found to have oxygen saturation of 80% on room air. Patient was also found to have tachycardia, tachypnea along with the hypoxia. She did have a pelvic test done that was negative. Her labs demonstrated a BNP of greater than 10,000, troponin of 0.3. She was placedon 15 L nonrebreather and was saturating at 96%. Patient was given a dose of Lasix 60 mg from whichshe had 500 cc output. This did seem to alleviate her symptoms. Restrictions/Precautions: Restrictions/Precautions: General Precautions Position Activity Restriction Other position/activity restrictions: oxygen 2L rest, 4L with activity, pacemaker in place Subjective: Chart Reviewed: Yes Patient assessed for rehabilitation services?: Yes Family / Caregiver Present: No Subjective: RN approved PT session and present at start of session. Pt in bedside chair upon entry and agreeable to PT interventions. Pt motivated to participate in activity and noted frustration with SOB episodes because she likes to walk and be active but is limited by her breathing. Post session, pt in bedside chair with all needs in reach. Chair alarm on, RN aware. General: Overall Orientation Status: Within Functional Limits Follows Commands: Within Functional Limits Pain: Denies Social/Functional History: Lives With: (hao mcdonald currently) Type of Home: Apartment Home Layout: One level Home Access: Level entry Home Equipment: Cane ADL Assistance: Independent Ambulation Assistance: Independent Transfer Assistance: Independent Additional Comments: Pt reports no use of AD and states she enjoys walking and being active but hasbeen limited recently secondary to SOB. Pt reported having to walk minimal distances within household. Pt states 3L O2 at home [employer], but admitted not using it faithfully and feeling like she doesn't need it. OBJECTIVE: Range of Motion: Right Lower Extremity: WFL Left Lower Extremity: WFL Strength: Right Lower Extremity: WFL Left Lower Extremity: WFL Balance: Static Standing Balance: Supervision Dynamic Standing Balance: Stand By Assistance, Contact Guard Assistance, with increased time for completion, CGA initially provided secondary to nurse reporting some lower blood pressure this morning, progressed to SBA, no LOB Performed dynamic functional seated task with SBA provided to monitor oxygen saturation and breathing, no LOB noted. Bed Mobility: Not Tested Transfers: Sit to Stand: Supervision, to/from chair with arms Stand to Sit:Supervision, to/from chair with arms Ambulation: Stand By Assistance, Contact Guard Assistance, with verbal cues , with increased time for completion, cues to perform deep breathing technique secondary to maximize oxygen Distance: 120 ft Surface: Level Tile Device:No Device Gait Deviations: Decreased Step Length Bilaterally, Decreased Gait Speed and Wide Base of Support Pt on 2L O2 at rest and during activity. No SOB noted, asymptomatic, and patient stated feeling well during ambulation. Pt reported a recent increase in O2 to 4L during activity that was discussed with RN following session. Pt encouraged to breathe in through her nose and out through her mouth throughout activity secondary to decrease in oxygen saturation. Oxygen saturation: Seated prior to gait: 89%, HR 65 Half-Way through ambulation: 80%, HR 87 Seated post gait: 93%, HR 76 Exercise: Patient was guided in 1 set(s) 10 reps of exercise to both lower extremities. Seated marches, Seated heel/toe raises, Long arc quads and seated abd/add. Exercises were completedfor increased independence with functional mobility. Functional Outcome Measures: Completed [facility] Inpatient Mobility Raw Score : 18 [facility] Inpatient T-Scale Score : 43.63 ASSESSMENT: Activity Tolerance: Patient tolerance of treatment: fair. No SOB noted, but ambulation duration limited secondary to decreased oxygen saturation. Treatment Initiated: Treatment and education initiated within context of evaluation. Evaluation time included review of current medical information, gathering information related to past medical, social and functional history, completion of standardized testing, formal and informal observation of tasks, assessment of data and development of plan of care and goals. Treatment time included skilled education and facilitation of tasks to increase safety and independence with functional mobility forimproved independence and quality of life. Treatment included seated exercises and gait training. Cueing provided to improve endurance and breathing throughout activity. Assessment: Body structures, Functions, Activity limitations: Decreased functional mobility , Decreased endurance Assessment: Pt presents with acute respiratory failure with hypoxia. Pt currently on 2L O2 at rest,approved for 4L with activity. Pt demonstrates significant decreased endurance limiting her ambulation and activity and would benefit from continued therapy until D/C. Prognosis: Good REQUIRES PT FOLLOW UP: Yes Discharge Recommendations: Discharge Recommendations: Home with assist PRN Patient Education: PT Education: Goals, PT Role, Plan of Care, Home Exercise Program, Energy Conservation, Functional Mobility Training, Gait Training Education on breathing technique throughout activity to minimize decreased O2 saturation, discussion on importance of exercises to maintain strength and pt verbalized understanding. Equipment Recommendations: Equipment Needed: No Plan: Times per week: 3-5x GM Times per day: Daily Current Treatment Recommendations: Strengthening, Home Exercise Program, Endurance Training, Patient/Caregiver Education & Training, Functional Mobility Training, Gait Training Goals: Patient goals : to go home Short term goals Time Frame for Short term goals: to discharge Short term goal 1: rolling to and from supine modified independent to safely get in and out of bed Short term goal 2: supine <> sit modified independent for ease with bed mobility Short term goal 3: amb 150 ft modified independent to safely ambulate household and community distances Short term goal 4: sit <> stand modified independent to improve functional mobility MCC goals Time Frame for MCC goals : NA secondary to short ELOS Following session, patient left in safe position with all fall risk precautions in place. * Ida Burton RCP - 12/13/2019 5:40 PM EDT A home oxygen evaluation has been completed. [x]Patient is an inpatient. It is expected that the patient will be discharged within the next 48 hours. Qualified provider to write order for home prescription if patient qualifies. Social service/care managers will arrange for home oxygen. If patient is active, arrange for Home Medical supplier to assess for Oxygen Conserving Device per pulse oximetry. []Patient is an outpatient. Results will be faxed to the ordering provider. Qualified provider to write order for home prescription if patient qualifies and arranges for home oxygen. Patient was placed on room air for 1 minutes. SpO2 was 84 % on room air at rest. Patients SpO2 was below 89% and qualified for home oxygen. Oxygen was applied at 2 lpm via nasal cannula to maintain aSpO2 between 90-92% while at rest. Actual SpO2 was 90 %. Patient can ambulate for exercise flow rate. Patients was ambulated, SpO2 was 90% on 4 lpm to maintain SpO2 between 90-92% while exercising. 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 Brumfield. 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 HISTORY OF PRESENT ILLNESS: This is actually a 63-year-old female patient with history of asthma, severe congestive heart failure, COPD who stated that she has severe sleep apnea at home and she has a CPAP, hypertension, hyperlipidemia, has been having multiple hospitalizations for congestive heart failure recently at least 3 to 4 times in the last few months and currently presented with progressive worsening of shortness of breath over the last week and has been having orthopnea almost sitting position. She has paroxysmal nocturnal dyspnea. She has been on Lasix at home 40 mg daily. Despite that, she progressively for worsening shortness of breath, but no leg swelling and she has no fever or chills, no cough. She came to the emergency room where she was found she was saturating 80% at room air and having tachycardic, tachypneic. BNP was markedly elevated. Troponin minimally elevated. She was placed on 15 liters non-breather and saturating 96% and moreover 60 mg IV Lasix has been given. She put out 500 mL of urine. Today, the short of breath is better, but she has also CO2 retention on ABG. She has been started on BiPAP now. A chest x-ray showed bilateral interstitial infiltrate suggestive for pulmonary edema with possible bilateral pleural effusion and atelectasis. The patient has been scheduled for TAVR on 12/19/2019 per the patient, but she needs a clearance from dentist and she had an appointment to see dentist tomorrow. Currently, short of breath is better, but still having short of breath, significantly orthopneic and she is on diuretics twice a day 40 mg IV now. Denied having any chest pain. Subjective (Events in last 24 hours): Net I/o ?inaccurate Weight down 5 lb if accurate Objective: BP 123/63 Pulse 70 Temp 97.3 F (36.3 C) (Oral) Resp 16 Ht 5' 6 (1.676 m) Wt 225 lb 11.2 oz (102.4 kg) SpO2 98% BMI 36.43 kg/m TELEMETRY: nsr Physical Exam: General Appearance: alert and oriented to person, place and time, in no acute distress Cardiovascular: normal rate, regular rhythm, normal S1 and S2,+murmur Pulmonary/Chest: clear to auscultation bilaterally- no wheezes, rales or rhonchi, normal air movement, no respiratory distress Abdomen: soft, non-tender, non-distended, normal bowel sounds, no masses Extremities: no cyanosis, clubbing or edema, pulse Skin: warm and dry, no rash or erythema Head: normocephalic and atraumatic Eyes: pupils equal, round, and reactive to light Neck: supple and non-tender without mass, no thyromegaly Musculoskeletal: normal range of motion, no joint swelling, deformity or tenderness Neurological: alert, oriented, normal speech, no focal findings or movement disorder noted Medications: dexamethasone 6 mg Oral Daily albuterol 2.5 mg Nebulization 4x daily tiotropium 2 puff Inhalation Daily acetaZOLAMIDE 250 mg Oral Once furosemide 40 mg Intravenous Daily sodium chloride flush 10 mL Intravenous 2 times per day enoxaparin 40 mg Subcutaneous Daily aspirin 81 mg Oral Daily atorvastatin 80 mg Oral Daily [Held by provider] dilTIAZem 240 mg Oral Daily FLUoxetine 20 mg Oral Daily potassium chloride 20 mEq Oral Nightly spironolactone 25 mg Oral Daily metoprolol tartrate 12.5 mg Oral BID insulin lispro 0-6 Units Subcutaneous TID WC insulin lispro 0-3 Units Subcutaneous Nightly dextrose sodium chloride flush, 10 mL, PRN acetaminophen, 650 mg, Q6H PRN Or acetaminophen, 650 mg, Q6H PRN polyethylene glycol, 17 g, Daily PRN promethazine, 12.5 mg, Q6H PRN Or ondansetron, 4 mg, Q6H PRN potassium chloride, 10 mEq, PRN magnesium sulfate, 2 g, PRN glucose, 15 g, PRN dextrose, 12.5 g, PRN glucagon (rDNA), 1 mg, PRN dextrose, 100 mL/hr, PRN Lab Data: Cardiac Enzymes: No results for input(s): CKTOTAL, CKMB, CKMBINDEX, TROPONINI in the last 72 hours. CBC: Lab Results Component Value Date WBC 12.3 12/12/2019 RBC 4.44 12/12/2019 RBC 4.68 10/16/2011 HGB 11.0 12/12/2019 HCT 37.9 12/12/2019 PLT 188 12/12/2019 CMP: Lab Results Component Value Date NA 140 12/13/2019 K 4.1 12/13/2019 CL 92 12/13/2019 CO2 36 12/13/2019 BUN 54 12/13/2019 CREATININE 1.1 12/13/2019 GFRAA >60 08/29/2019 LABGLOM 50 12/13/2019 GLUCOSE 128 12/13/2019 GLUCOSE 86 10/16/2011 CALCIUM 9.4 12/13/2019 Hepatic Function Panel: Lab Results Component Value Date ALKPHOS 80 08/26/2019 ALT 14 08/26/2019 AST 24 08/26/2019 PROT 8.0 08/26/2019 BILITOT 0.84 08/26/2019 LABALBU 3.8 08/26/2019 LABALBU 4.4 10/16/2011 Magnesium: Lab Results Component Value Date MG 2.0 12/13/2019 MG 2.0 10/16/2011 PT/INR: Lab Results Component Value Date PROTIME 10.6 10/16/2011 INR 1.0 10/16/2011 HgBA1c: Lab Results Component Value Date LABA1C 6.3 12/12/2019 FLP: Lab Results Component Value Date TRIG 107 12/12/2019 HDL 37 12/12/2019 LDLCALC 77 12/12/2019 TSH: Lab Results Component Value Date TSH 1.96 08/26/2019 Assessment: Acute hypercapnic and hypoxic resp failure Acute on chronic diastolic CHF - improving Severe Ef >55 per ARIA 09/01/19 Hx COPD Hx UNRULY Elevated troponins secondary resp failure/chf Nonobstructive CAD per cath 08/2019 DM Hx anxiety and depression Noncompliance with fluid restriction Plan: Daily I/o and weights 2 liter fluid restriction and 2gm sodium diet Keep K >4 and mag >2 Cont asa/statin/BB/aldactone Avoid nitrates Cont diuresis Cxr, bmp, bnp in am Will update dr brumfield of this admission as he is scheduled for TAVR 12/19/19. She will need to reschedule her dentist appt for end of week prior to TAVR * Ida Burton RCP - 12/13/2019 9:16 AM EDT Pt has a good technique with acapella so it has been turned over to her. * Hussein Sams MD - 12/13/2019 7:23 AM EDT Assessment and Plan: 1. Acute on chronic diastolic chf- gradually improving but cxr still congested. Will repeat cxr am.Add diamox today 2. Severe aortic stenosis- being considered for tavr. 3. Acute hypercapneic respiratory failure- wears bipap at home. Will add short course steroid, spiriva CC: sob HPI: Pt with copd, severe , presents with acute pulmonary edema. Being diuresed. ROS (12 point review of systems completed. Pertinent positives noted. Otherwise ROS is negative) : mild diabetic PMH: Per HPI SHX: Exsmoker, FHX: Noncontributory Allergies: See above Medications: dextrose dexamethasone 6 mg Oral Daily albuterol 2.5 mg Nebulization 4x daily tiotropium 2 puff Inhalation Daily acetaZOLAMIDE 250 mg Oral Once furosemide 40 mg Intravenous Daily sodium chloride flush 10 mL Intravenous 2 times per day enoxaparin 40 mg Subcutaneous Daily aspirin 81 mg Oral Daily atorvastatin 80 mg Oral Daily [Held by provider] dilTIAZem 240 mg Oral Daily FLUoxetine 20 mg Oral Daily potassium chloride 20 mEq Oral Nightly spironolactone 25 mg Oral Daily metoprolol tartrate 12.5 mg Oral BID insulin lispro 0-6 Units Subcutaneous TID WC insulin lispro 0-3 Units Subcutaneous Nightly Vital Signs: BP 111/63 Pulse 75 Temp 97.6 F (36.4 C) (Oral) Resp 14 Ht 5' 6 (1.676 m) Wt 225 lb 11.2 oz (102.4 kg) SpO2 96% BMI 36.43 kg/m Intake/Output Summary (Last 24 hours) at 12/13/2019 07 Last data filed at 12/13/2019 0327 Gross per 24 hour Intake 975 ml Output 475 ml Net 500 ml Physical Examination: General appearance - overweight and chronically ill appearing Mental status - alert, oriented to person, place, and time Neck - supple, no significant adenopathy, no JVD, or carotid bruits Chest - diffuse wheezes Heart - normal rate and regular rhythm, systolic murmur 07/14 ursb Abdomen - soft, nontender, nondistended, no masses or organomegaly Neurological - alert, oriented, normal speech, no focal findings or movement disorder noted Musculoskeletal - no joint tenderness, deformity or swelling, no muscular tenderness noted Extremities - no pedal edema noted Skin - normal coloration and turgor, no rashes, no suspicious skin lesions noted Data: (All radiographs, tracings, PFTs, and imaging are personally viewed and interpreted unless otherwise noted). ? Reviewed cxr, labs * Heather Zuniga RN - 12/13/2019 6:21 AM EDT I agree with Ashley Lagos RN charting. * Violet Liz RN - 12/12/2019 12:00 PM EDT Educated patient regarding heart failure management by explaining the importance of obtaining dailyweights at the same time every day with approximately the same amount of clothing, how to recognizesymptoms, low sodium diet and taking prescribed medications as ordered. Patient was given our heartfailure booklet, a weight chart and a low sodium diet sheet. Patient was receptive to the education given and verbalized understanding. Discussed with Gomez with structural heart program and they will follow patient with Dr. 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 Brumfield. 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 HISTORY OF PRESENT ILLNESS: This is actually a 63-year-old female patient with history of asthma, severe congestive heart failure, COPD who stated that she has severe sleep apnea at home and she has a CPAP, hypertension, hyperlipidemia, has been having multiple hospitalizations for congestive heart failure recently at least 3 to 4 times in the last few months and currently presented with progressive worsening of shortness of breath over the last week and has been having orthopnea almost sitting position. She has paroxysmal nocturnal dyspnea. She has been on Lasix at home 40 mg daily. Despite that, she progressively for worsening shortness of breath, but no leg swelling and she has no fever or chills, no cough. She came to the emergency room where she was found she was saturating 80% at room air and having tachycardic, tachypneic. BNP was markedly elevated. Troponin minimally elevated. She was placed on 15 liters non-breather and saturating 96% and moreover 60 mg IV Lasix has been given. She put out 500 mL of urine. Today, the short of breath is better, but she has also CO2 retention on ABG. She has been started on BiPAP now. A chest x-ray showed bilateral interstitial infiltrate suggestive for pulmonary edema with possible bilateral pleural effusion and atelectasis. The patient has been scheduled for TAVR on 12/19/2019 per the patient, but she needs a clearance from dentist and she had an appointment to see dentist tomorrow. Currently, short of breath is better, but still having short of breath, significantly orthopneic and she is on diuretics twice a day 40 mg IV now. Denied having any chest pain. Subjective (Events in last 24 hours): pt awake and alert. NAD. No cp. Sob much improved. Was able to sleep last night laying flat without sob. No edema Net I/o -790 Weight down 4 lb Objective: BP 123/63 Pulse 80 Temp 98 F (36.7 C) (Oral) Resp 16 Ht 5' 6 (1.676 m) Wt 226 lb 11.2 oz(102.8 kg) SpO2 91% BMI 36.59 kg/m TELEMETRY: nsr Physical Exam: General Appearance: alert and oriented to person, place and time, in no acute distress Cardiovascular: normal rate, regular rhythm, normal S1 and S2,+murmur Pulmonary/Chest: clear to auscultation bilaterally- no wheezes, rales or rhonchi, normal air movement, no respiratory distress Abdomen: soft, non-tender, non-distended, normal bowel sounds, no masses Extremities: no cyanosis, clubbing or edema, pulse Skin: warm and dry, no rash or erythema Head: normocephalic and atraumatic Eyes: pupils equal, round, and reactive to light Neck: supple and non-tender without mass, no thyromegaly Musculoskeletal: normal range of motion, no joint swelling, deformity or tenderness Neurological: alert, oriented, normal speech, no focal findings or movement disorder noted Medications: sodium chloride flush 10 mL Intravenous 2 times per day enoxaparin 40 mg Subcutaneous Daily aspirin 81 mg Oral Daily atorvastatin 80 mg Oral Daily [Held by provider] dilTIAZem 240 mg Oral Daily FLUoxetine 20 mg Oral Daily potassium chloride 20 mEq Oral Nightly furosemide 40 mg Intravenous BID ipratropium-albuterol 1 ampule Inhalation Q4H WA spironolactone 25 mg Oral Daily metoprolol tartrate 12.5 mg Oral BID insulin lispro 0-6 Units Subcutaneous TID WC insulin lispro 0-3 Units Subcutaneous Nightly dextrose sodium chloride flush, 10 mL, PRN acetaminophen, 650 mg, Q6H PRN Or acetaminophen, 650 mg, Q6H PRN polyethylene glycol, 17 g, Daily PRN promethazine, 12.5 mg, Q6H PRN Or ondansetron, 4 mg, Q6H PRN potassium chloride, 10 mEq, PRN magnesium sulfate, 2 g, PRN glucose, 15 g, PRN dextrose, 12.5 g, PRN glucagon (rDNA), 1 mg, PRN dextrose, 100 mL/hr, PRN Lab Data: Cardiac Enzymes: No results for input(s): CKTOTAL, CKMB, CKMBINDEX, TROPONINI in the last 72 hours. CBC: Lab Results Component Value Date WBC 12.3 12/12/2019 RBC 4.44 12/12/2019 RBC 4.68 10/16/2011 HGB 11.0 12/12/2019 HCT 37.9 12/12/2019 PLT 188 12/12/2019 CMP: Lab Results Component Value Date NA 140 12/12/2019 K 4.2 12/12/2019 CL 96 12/12/2019 CO2 35 12/12/2019 BUN 43 12/12/2019 CREATININE 1.1 12/12/2019 GFRAA >60 08/29/2019 LABGLOM 50 12/12/2019 GLUCOSE 150 12/12/2019 GLUCOSE 86 10/16/2011 CALCIUM 9.5 12/12/2019 Hepatic Function Panel: Lab Results Component Value Date ALKPHOS 80 08/26/2019 ALT 14 08/26/2019 AST 24 08/26/2019 PROT 8.0 08/26/2019 BILITOT 0.84 08/26/2019 LABALBU 3.8 08/26/2019 LABALBU 4.4 10/16/2011 Magnesium: Lab Results Component Value Date MG 2.1 12/12/2019 MG 2.0 10/16/2011 PT/INR: Lab Results Component Value Date PROTIME 10.6 10/16/2011 INR 1.0 10/16/2011 HgBA1c: Lab Results Component Value Date LABA1C 6.3 12/12/2019 FLP: Lab Results Component Value Date TRIG 107 12/12/2019 HDL 37 12/12/2019 LDLCALC 77 12/12/2019 TSH: Lab Results Component Value Date TSH 1.96 08/26/2019 Assessment: Acute hypercapnic and hypoxic resp failure Acute on chronic diastolic CHF Severe Ef >55 per ARIA 09/01/19 Hx COPD Hx UNRULY Elevated troponins secondary resp failure/chf Nonobstructive CAD per cath 08/2019 DM Hx anxiety and depression Noncompliance with fluid restriction Plan: Daily I/o and weights 2 liter fluid restriction and 2gm sodium diet Keep K >4 and mag >2 Cont asa/statin/BB/aldactone Cont diuresis Cxr, bmp, bnp in am Will update dr brumfield of this admission as he is scheduled for TAVR 12/19/19. She will need to reschedule her dentist appt for end of week prior to TAVR * EllyJeni diego, RD, LD - 12/12/2019 9:44 AM EDT Comprehensive Nutrition Assessment Type and Reason for Visit: Initial, Positive Nutrition Screen(poor po) ; consult - Heart Failure diet guidelines. Nutrition Recommendations/Plan: Encouraged po, good nutrition at best efforts. Education completed.Pt. Voices understanding. Nutrition Assessment: Pt. Reports improving appetite and intake. Tolerating diet. Has received dieteducation in the past. Admits to not reading labels well logging captain mud analysis. Malnutrition Assessment: Malnutrition Status: No malnutrition Nutrition Related Findings: pt. seen - reports poor po well logging captain mud analysis; some nausea d/t constipation - now improved; reports has been trying to lose weight - drinking a lot of water; reports doesn't add salt to meals but hasn't been reading labels; states blood sugars well controlled well logging captain mud analysis - HgbA1c 6.3% Wounds: None Current Nutrition Therapies: DIET CARDIAC; Carb Control: 5 carb choices (75 gms)/meal; Low Sodium (2 GM); Daily Fluid Restriction: 1500 ml Anthropometric Measures: Height: 5' 6 (167.6 cm) Current Body Weight: 226 lb 11.2 oz (102.8 kg)(12/11, standing scale, no edema) Admission Body Weight: 230 lb 8 oz (104.6 kg)(12/10, no edema, method not stated) Usual Body Weight: ~220# per pt BMI: 36.6 BMI Categories: Obese Class 2 (BMI 35.0 -39.9) Nutrition Diagnosis: No nutrition diagnosis at this time Nutrition Interventions: Food and/or Nutrient Delivery: Continue Current Diet Nutrition Education/Counseling: Education completed(12/11 Encouraged good nutrition. Instructed/reinforced low sodium diet, label reading. Discussed FR.) Coordination of Nutrition Care: Continued Inpatient Monitoring Nutrition Monitoring and Evaluation: Behavioral-Environmental Outcomes: Knowledge or Skill Food/Nutrient Intake Outcomes: Food and Nutrient Intake Physical Signs/Symptoms Outcomes: Biochemical Data, Chewing or Swallowing, Nausea or Vomiting, Constipation, Nutrition Focused Physical Findings, Skin, Weight Discharge Planning: Continue current diet Contact: * Hussein Sams MD - 12/12/2019 7:16 AM EDT Assessment and Plan: 1. Acute on chronic diastolic chf- gradually improving 2. Severe aortic stenosis- being considered for tavr. 3. Acute hypercapneic respiratory failure- wears bipap at home. CC: sob HPI: Pt with copd, severe , presents with acute pulmonary edema. Being diuresed. ROS (12 point review of systems completed. Pertinent positives noted. Otherwise ROS is negative) : mild diabetic PMH: Per HPI SHX: Exsmoker, FHX: Noncontributory Allergies: See above Medications: dextrose acetaZOLAMIDE 250 mg Oral Once sodium chloride flush 10 mL Intravenous 2 times per day enoxaparin 40 mg Subcutaneous Daily aspirin 81 mg Oral Daily atorvastatin 80 mg Oral Daily [Held by provider] dilTIAZem 240 mg Oral Daily FLUoxetine 20 mg Oral Daily potassium chloride 20 mEq Oral Nightly furosemide 40 mg Intravenous BID ipratropium-albuterol 1 ampule Inhalation Q4H WA spironolactone 25 mg Oral Daily metoprolol tartrate 12.5 mg Oral BID insulin lispro 0-6 Units Subcutaneous TID WC insulin lispro 0-3 Units Subcutaneous Nightly Vital Signs: BP 112/75 Pulse 87 Temp 97.7 F (36.5 C) (Axillary) Resp 18 Ht 5' 6 (1.676 m) Wt 226 lb 11.2 oz (102.8 kg) SpO2 97% BMI 36.59 kg/m Intake/Output Summary (Last 24 hours) at 12/12/2019 0716 Last data filed at 12/12/2019 0312 Gross per 24 hour Intake 820 ml Output 1850 ml Net -1030 ml Physical Examination: General appearance - overweight and chronically ill appearing Mental status - alert, oriented to person, place, and time Neck - supple, no significant adenopathy, no JVD, or carotid bruits Chest - diffuse wheezes Heart - normal rate and regular rhythm, systolic murmur 3/6 ursb Abdomen - soft, nontender, nondistended, no masses or organomegaly Neurological - alert, oriented, normal speech, no focal findings or movement disorder noted Musculoskeletal - no joint tenderness, deformity or swelling, no muscular tenderness noted Extremities - no pedal edema noted Skin - normal coloration and turgor, no rashes, no suspicious skin lesions noted Data: (All radiographs, tracings, PFTs, and imaging are personally viewed and interpreted unless otherwise noted). ? Reviewed cxr, labs * Chris Conn RN - 12/11/2019 5:00 AM EDT Pt admitted to [facility] via direct admit. Complaints: Shortness of breath. IV none infusing into the forearm right, condition patent and no redness and left, condition patentand no redness at a rate of 0 mls/ hour with about 0 mls in the bag still. IV site free of s/s of infection or infiltration. Vital signs obtained. Assessment and data collection initiated. Two nurse skin assessment performed by Chris RN and RN. Oriented to room. Policies and procedures for explained. Chris RN discussed hourly rounding with patient addressing 5 P's. Fall prevention and safety brochure discussed with patient. Bed alarm on. Call light in reach. The best day to schedule a follow up Dr appointment is: Thursday a.m. Explained patients right to have family, product sales representative or physician notified of their admission. Patient has Declined for physician to be notified. Patient has Declined for family/product sales representative to be notified. All questions answered with no further questions at this time. * Kenya Bar RN - 12/11/2019 12:48 AM EDT Transfer Report from [facility] Referring Physician Dr Phelan Accepting Physician Dr Navarro Patient Condition:63 yo presents [facility] with c/o SOB x 6days, worsening today, upon arrivalo2 Sats were 80%. Pt is scheduled to have aortic valve replacement on December [address] Brumfield. Cardiology consulted and Physician spoke with Dr Martins who recommended admission here with hospitalist to admit. CXR shows cardiomegaly, and pulmonary edema, bibasilar opacities, EKG is unchanged since one year ago, with RBBB, And ST depression in leads 1,2,3 and AVF. pt was given 60mg of IV Lasix and had 500 ml urine out after which her breathing has shown much improvement. Covid testing is negative.Last vitals 98.4 100 21 131/88 96% on 15L nonrebreather. Abnormal labs BNP >65570, trop 0.3. Conferenced Dr Navarro with Dr Phelan for further information, accepted to 3B25 with diagnosis of Acutehypoxic resp failure. documented in this encounter* Ashley Ramírez, REYES - 01/27/2020 4:30 PM EDT AVS discussed with patient. No questions or concerns at this time. Patients arrived to take patient home and brought an empty oxygen tank. Called case managerto see what we could do for the patient. glazing department supervisor to floor and ask for order for DME oxygen. glazing department supervisor Kitty to floor and faxed paper work and [employer] action voucher for patient to get patient a tank to use on [address]. Voicemail left for Gomez Arambula about patient being discharged and that GI was okay from their standpoint for her to have her TAVR. * Chloé Li MD - 01/27/2020 1:36 PM EDT Gastroenterology Progress Note 01/27/2020 1:36 PM Subjective: Admit Date: 01/24/2020 Interval History: Labs reviewed, H&H low but stable. Pt denies abdominal pain or N/V. Denies melena or hematochezia. Discussed EGD and colonoscopy findings. Discussed outpt capsule. Diet: DIET CARDIAC; Patient Active Problem List: Acute on chronic diastolic HF (heart failure) (HCC) PAF (paroxysmal atrial fibrillation) (HCC) Aortic stenosis, severe Hypoxia Hypomagnesemia Acute on chronic respiratory failure with hypoxia and hypercapnia (HCC) Suspected COVID-19 virus infection Severe aortic stenosis Medications: Scheduled Meds: pantoprazole 40 mg Intravenous BID aspirin 81 mg Oral Daily atorvastatin 80 mg Oral Daily FLUoxetine 20 mg Oral Daily potassium chloride 20 mEq Oral Daily tiotropium 2 puff Inhalation Daily sodium chloride flush 10 mL Intravenous 2 times per day Continuous Infusions: CBC: Recent Labs 01/25/20 0017 01/25/20 0813 01/26/20 0417 01/26/20 2052 01/27/20 0357 01/27/20 1123 WBC 7.4 6.9 -- 6.9 -- -- -- -- HGB 9.4* 9.6* < > 9.7* < > 9.6* 9.7* 9.2* PLT 151 128* -- 133 -- -- -- -- < > = values in this interval not displayed. BMP: Recent Labs 01/25/20 00101/26/2041601/27/207 NA 138 136 136 K 4.0 4.3 4.3 CL 97* 94* 95* CO2 32 34* 32 BUN 29* 20 15 CREATININE 1.0 0.8 0.9 GLUCOSE 116* 98 119* Hepatic: Recent Labs 01/25/2016 AST 14 ALT 8* BILITOT 0.6 ALKPHOS 62 INR: Recent Labs 01/25/2016 INR 1.19* Xray: N/A Endoscopy Finding: PATIENT NAME: SAMREEN DAWSON : 1955 MED REC NO: [id number] ROOM: [facility] ACCOUNT NO: [id number] ADMIT DATE: 01/24/2020 PROVIDER: Chloé Li M.D. DATE OF PROCEDURE: 01/26/2020 INDICATIONS: The patient with a history of iron deficiency anemia, severe acute GI blood loss anemia, chronic anemia, had an upper endoscopy done in [facility] with erosive gastritis. The patient has anemia after that. Plan today for colonoscopy to evaluate diagnostic findings to explain the anemia and also GI bleed to have an upper endoscopy. The patient consented for both procedures. SURGEON: Chloé Li MD ASA CLASSIFICATION: III. ESTIMATED BLOOD LOSS: None. DESCRIPTION OF PROCEDURE: The patient was brought to the GI lab. Consent was obtained. Risks involved with the procedure were explained to the patient. Informed consent was obtained. The patient was monitored during the procedure with pulse oximetry, blood pressure monitoring, and oxygen by nasal cannula. Sedation by incremental doses of IV propofol given by the anesthesia service to achieve total IV anesthesia. For ASA classification and medication given during the procedure, please see Anesthesia note. PROCEDURE PERFORMED #1: Colonoscopy with polypectomy using snare. Digital examination revealed normal rectum. Standard colonoscope advanced under direct vision from the rectum up to the cecum. Prep was poor in the left side. A lot of washing was done. Despite that, exam was suboptimal. Cecum intubation was confirmed by appendical orifice. Scope was withdrawn. Seen mild diverticulosis. No diverticulitis or colitis. Multiple polyps which were each removed from the descending, sigmoid, rectal area; all appeared to be small, not large, varying in size between 0.2 to 0.4 cm, excised with a snare, some of the tissue retrieved, others were not due to small size of the polyps. Scope was withdrawn with no immediate complication. IMPRESSION: Multiple polyps removed using snare in the descending, sigmoid, rectal area sent in one container, all appeared to be very small. PLAN: 1. Follow up with biopsy results in the GI clinic for evaluation. 2. Proceed for upper endoscopy as scheduled, if colonoscopy is negative as the finding with the colonoscopy cannot explain the severe anemia. PROCEDURE PERFORMED #2: Upper endoscopy. Standard video upper scope was advanced under direct vision from the oral cavity up to the duodenum. Esophagus featured mild acid reflux. No erosions or ulceration seen. Scope was advanced to the stomach. Retroflex examination of the cardia revealed cardia with no evidence of hiatus hernia. Mild gastritis with erosions in the antrum, not really significant. Duodenum appeared normal. No biopsy obtained. Scope was withdrawn with no immediate complication. IMPRESSION: 1. Mild acid reflux. 2. Gastritis. 3. No GI bleed. PLAN: 1. Follow up with GI clinic for evaluation. 2. Elective capsule endoscopy recommended. 3. I do not see any contraindication to proceed with TAVR to see the aortic stenosis as the cardiacservice sees appropriate. Objective: Vitals: BP (!) 112/53 Pulse 92 Temp 98.5 F (36.9 C) (Oral) Resp 20 Ht 5' 6 (1.676 m) Wt 220 lb 12.8 oz (100.2 kg) SpO2 93% BMI 35.64 kg/m Intake/Output Summary (Last 24 hours) at 01/27/2020 1336 Last data filed at 01/26/20202023 Gross per 24 hour Intake 750 ml Output 0 ml Net 750 ml Weight: Wt Readings from Last 3 Encounters: 01/27/20 220 lb 12.8 oz (100.2 kg) 01/17/20 220 lb (99.8 kg) 12/14/19 221 lb 8 oz (100.5 kg) General appearance: alert and cooperative with exam. Well groomed, well nourished obese female Lungs: wheezes GIL and RUL Heart: S1 S2 regular rate and rhythm (+) murmur Abdomen: soft, non-tender; bowel sounds normal; no masses, no organomegaly Extremities: extremities normal, atraumatic, no cyanosis or edema Assessment and Plan: 1. Iron deficiency anemia - s/p EGD and colonoscopy. No evidence of GI bleed. Plan for outpt capsule endoscopy. Continue to monitor H&H and transfuse prn to keep Hgb > 8.0. 2. Severe aortic stenosis - ok from GI standpoint to proceed with TAVR. 3. Erosive gastritis on EGD - continue PPI. Monitor closely for GI bleed if on DAPT/OAC. Avoid NSAIDs 4. Diverticulosis on colonoscopy - high fiber diet. 5. Colon polyps on colonoscopy - follow up in office in 2 weeks to review biopsy results. 6. Ok from GI standpoint to discharge at Attending's discretion. Follow up in GI Clinic after discharge in 2 week(s) with CBC and SBFT. 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 Brumfield Per prior cardiology consult note- CHIEF COMPLAINT: Severe Anemia HPI: This is a pleasant 64 y.o. female presents with severe , Afib, hx of D-PM implant who presents with worsening anemia. Was set for TAVR today. Cancelled due to admission for sob, VERA, and worsening anemia. She is on chronic oxygen therapy. She did have some chest discomfort. Mild trop elevation. CXR shows mild pulmonary edema. She appears slightly pale and complains of fatigue. EF 35%. Cr 1.0. BNP 5964, Trop 0.425. Hgb 9.4 Went to OSH, was transferred to due need for high risk colonoscopy. EGD shows antral erosions without active bleed. Subjective (Events in last 24 hours): S\p colonoscopy -- Pre-Op Diagnosis: acute GI blood loss anemia, gastric erosion and history of chronic anemia Post-Op Diagnosis: Polyps, diverticulosis , GERD and healing gastric erosions Pt sitting Up in bed No chest pain or SOB VSS Tele SR no ectopy She is upset that TAVR cancelled again Objective: BP 134/65 Pulse 79 Temp 97.6 F (36.4 C) (Oral) Resp 16 Ht 5' 6 (1.676 m) Wt 223 lb 3.2 oz (101.2 kg) SpO2 95% BMI 36.03 kg/m TELEMETRY: SR Physical Exam: General Appearance: alert and oriented to person, place and time, in no acute distress Cardiovascular: normal rate, regular rhythm, normal S1 and S2, ++ - no murmurs, rubs, clicks, or gallops, distal pulses intact, Pulmonary/Chest: clear to auscultation bilaterally- no wheezes, rales or rhonchi, normal air movement, no respiratory distress Abdomen: soft, non-tender, non-distended, normal bowel sounds, no masses Extremities: no cyanosis, clubbing or edema, pulses present Skin: warm and dry, no rash or erythema Head: normocephalic and atraumatic Musculoskeletal: normal range of motion, no joint swelling, deformity or tenderness Neurological: alert, oriented, normal speech, no focal findings or movement disorder noted Medications: pantoprazole 40 mg Intravenous BID aspirin 81 mg Oral Daily atorvastatin 80 mg Oral Daily FLUoxetine 20 mg Oral Daily potassium chloride 20 mEq Oral Daily tiotropium 2 puff Inhalation Daily sodium chloride flush 10 mL Intravenous 2 times per day albuterol sulfate HFA, 2 puff, Q6H PRN sodium chloride flush, 10 mL, PRN acetaminophen, 650 mg, Q6H PRN Or acetaminophen, 650 mg, Q6H PRN polyethylene glycol, 17 g, Daily PRN promethazine, 12.5 mg, Q6H PRN Or ondansetron, 4 mg, Q6H PRN Diagnostics: [id number] 03:03:13 [facility] ROUTINE RETRIEVAL Normal sinus rhythm Possible Left atrial enlargement Right bundle branch block Cannot rule out Inferior infarct , age undetermined Abnormal ECG When compared with ECG of 11-DEC-2019 07:58, No significant change was found Confirmed by AAMNUEL FERNANDEZ ([id number]) on 01/25/2020 7:40:44 AM ARIA: FINDINGS Left Atrium The left atrium appears normal in size. Left Ventricle Normal left ventricular systolic function with an estimated EF >55%. No significant wall motion abnormalities seen. Right Atrium The right atrium appears normal in size. Mitral Valve Normal mitral valve structure and function with trivial regurgitation noted. Aortic Valve The aortic valve was severely calcified and appeared to be tricuspid but the anterior leaflet does not appear to move well and therefore a functionally bicuspid aortic valve cannot be excluded. Pericardial Effusion No significant pericardial effusion is seen. Pleural Effusion No pleural effusion seen. Miscellaneous Normal aortic root dimensions. No evidence of diastolic dysfunction. Left Heart Cath: Angiographic Findings Cardiac Arteries and Lesion Findings LMCA: Mild irregularities 10-20%. LAD: Mild irregularities 30-40%. LCx: Mild irregularities 20-30%. RCA: Lesion on Mid RCA: Mid subsection.40% stenosis. Coronary Tree Dominance: Right LV function assessed as:Normal. Ejection Fraction + + + !Method !EF% ! + + + !Echocardiography !60 ! + + + Lab Data: Cardiac Enzymes: No results for input(s): CKTOTAL, CKMB, CKMBINDEX, TROPONINI in the last 72 hours. CBC: Lab Results Component Value Date WBC 6.9 01/26/2020 RBC 3.63 01/26/2020 RBC 4.68 10/16/2011 HGB 9.6 01/26/2020 HCT 31.8 01/26/2020 PLT 133 01/26/2020 CMP: Lab Results Component Value Date NA 136 01/26/2020 K 4.3 01/26/2020 CL 94 01/26/2020 CO2 34 01/26/2020 BUN 20 01/26/2020 CREATININE 0.8 01/26/2020 GFRAA >60 01/17/2020 LABGLOM 73 01/26/2020 GLUCOSE 98 01/26/2020 GLUCOSE 86 10/16/2011 CALCIUM 9.2 01/26/2020 Hepatic Function Panel: Lab Results Component Value Date ALKPHOS 62 01/25/2020 ALT 8 01/25/2020 AST 14 01/25/2020 PROT 6.3 01/25/2020 BILITOT 0.6 01/25/2020 LABALBU 3.7 01/25/2020 LABALBU 4.4 10/16/2011 Magnesium: Lab Results Component Value Date MG 1.8 01/25/2020 MG 2.0 10/16/2011 PT/INR: Lab Results Component Value Date PROTIME 10.6 10/16/2011 INR 1.19 01/25/2020 HgBA1c: Lab Results Component Value Date LABA1C 6.3 12/12/2019 FLP: Lab Results Component Value Date TRIG 107 12/12/2019 HDL 37 12/12/2019 LDLCALC 77 12/12/2019 TSH: Lab Results Component Value Date TSH 1.96 08/26/2019 Assessment: GIB Acute blood loss anemia - s\p PRBC S\p colonoscopy - Polyps, diverticulosis- healing gastric erosions / GERD Elevated trop - demand ischemia with GIB Chronic systolic chf NICDMP EF 35% Severe - OP TAVR workup Plan: Ok to DC from cardiology standpoint We will follow as OP in TAVR clinic OAC recommendations per GI please for TAVR * Eliz Israel RN - 01/26/2020 3:53 PM EDT Radha is in phase 2 Vitals as charted She denies pain Report called to 3b processing lead requested * Tatiana Sinha RN - 01/26/2020 3:41 PM EDT Photos taken, scope used GIF SER#[id number], EGD completed, no biopsies Samreen tolerated well. * Tatiana Sinha RN - 01/26/2020 3:41 PM EDT Photos taken, scope used CFQ SER#[id number], polyps taken with hot snare, specimens labeled & 1 jar sent to lab. 3 polyps fulgurated due to small size of polyp Colonoscopy completed, samreen tolerated well. * Gilmer Franklin - 01/26/2020 2:12 PM EDT Reported SBAR to Rhonda CHAMBERS. Patient taken to endoscopy. Nilsa Franklin RSC/SN * Darren Fuchs MD - 01/26/2020 1:54 PM EDT Hospitalist Progress Note Patient: Samreen Dawson Unit/Bed:[facility]/035-A Date of : 1955 Acct: [id number] PCP: MANJU PRESTON Date of Admission: 01/24/2020 Active Hospital Problems Diagnosis Date Noted Severe aortic stenosis [I35.0] 01/24/2020 Assessment/Plan: 1. Acute on chronic systolic and diastolic CHF, NYHA III: progressively worsening dyspnea on exertion x [address] chest in [facility] showed diffuse ground glass opacities, diffuse interstitial prominence with bibasilar parenchymal opacities consistent with HF. Likely 2/2 worsening of underlying critical aortic stenosis. d/w Dr. Brumfield with severe and rec lasix 40 mg IV BID x 2 doses. Pt weaned back down to 3L NC (home O2). Strict I/Os. Daily weights. Low Na+ diet. Cardiology consulted. 2. Acute on Chronic Hypoxic Resp. Failure: pt on 3L NC at home, requiring 4L NC. CXR and with smallBLE effusions and +pulm edema. Cont plan as above and wean as tolerated. 3. Melena presumably 2/2 upper GI bleed: Was to have TAVR done 01/25/[address] Brumfield but developedblood in stool and presented at [facility] in [place] - transfused 4 units PRBC and EGD 01/21/2020 with antral erosion, no acute bleed. No colonoscopy done due to being high risk with critical and thus was transferred to us. D/w Dr. Brumifeld 01/24 am and ok to proceed with colonoscopy and Dr. Zoë camargo this am 01/24 and plan for colonoscopy 01/25. Cont monitor h/h and transfuse if needed. ??hemolysisfrom critical 4. Severe Aortic Stenosis: per recent ECHO (01/21/2020), patient has velocity across aortic valve of6 m/s. Patient was scheduled to have TAVR done on 01/25/[address] Brumfield however developed blood instool and presented to [facility] in [place]. Cardiology consulted. 5. Mediastinal lymphadenopathy: \CT chest done in [facility] positive for prominent lymph nodes anterior to trachea measuring 2 cm and soft tissue prominence in right hilum. Unclear etiology at this time. May need further work up outpatient. 6. Hx of CAD: On aspirin and Lipitor 7. Hx of COPD: on Spiriva and albuterol q6h prn 8. Hx of DM: Hgb A1c 6.3 (12/12/2019). Monitor BG Chief Complaint: GI Bleed Hospital Course: 64 y.o. female with PMH of severe aortic stenosis, CAD, COPD (on 3L NC PRN at home), DM, and GERD, transferred from [facility] ([place], [place]) where she presented for chest pain and worsening dyspnea on 01/20/2020. Found to have Hgb 7.2, unclear what her baseline is, s/p 4 units of pRBCs. Repeat Hgbs stable around 9. FOBT was positive which lead to patient getting an EGD done which revealed an antral erosion with biopsy (pending) with no active bleeding. Also found to have elevated Troponin 0.33 on admission, peaked at 3.9, thought to be related to demandischemia. EKG showed nonspecific ST changes. CTA chest showed diffuse ground glass opacities, diffuse interstitial prominence with bibasilar parenchymal opacities consistent with HF. Also positive for prominent lymph nodes anterior to trachea measuring 2 cm and soft tissue prominence in right hilum. Of note, patient was originally scheduled for TAVR by Dr. Brumfield today (01/25/2020). She was transferred to [facility] for further evaluation as she was felt to be high risk for getting colonoscopy done prior to TAVR. On evaluation, patient reports progressively worsening dyspnea on exertion with minimal activity and generalized fatigue as well as acute chest pain which prompted her visit to [facility]. She also reportsthat she had Hgb <7 which was found blood work done outpatient. She was advised to go to the hospital for transfusion. She reports having black tarry stools for the past 2 weeks prior to her admission to [facility] with occasional small amount of mercedes blood which she attributes to her history of constipation and external hemorrhoids. She reports having had no recurrent episodes of melena/hematochezia since her admission on 01/20/2020. Patient reports having no chest pain, dyspnea, dizziness/lighthe adedness, subjective fever, chills, nausea/vomiting, abdominal pain, or diarrhea, hematuria, hemoptysis, hematemesis at this time. Patient emotional and crying after finding out that her TAVR schedule to be done tomorrow might be cancelled given the need to complete GIB work up with colonoscopy. Subjective: no acute events overnight. No fevers, chills, chest pain or sob. Pt reports feeling better. Denies any black or red colored stools. No nausea or vomiting. Medications: Reviewed Infusion Medications Scheduled Medications furosemide 40 mg Intravenous BID aspirin 81 mg Oral Daily atorvastatin 80 mg Oral Daily FLUoxetine 20 mg Oral Daily potassium chloride 20 mEq Oral Daily tiotropium 2 puff Inhalation Daily sodium chloride flush 10 mL Intravenous 2 times per day pantoprazole 40 mg Intravenous Daily PRN Meds: albuterol sulfate HFA, sodium chloride flush, acetaminophen OR acetaminophen, polyethylene glycol, promethazine OR ondansetron Intake/Output Summary (Last 24 hours) at 01/26/2020 1354 Last data filed at 01/26/2020 0957 Gross per 24 hour Intake 2732 ml Output 1075 ml Net 1657 ml Diet: Diet NPO, After Midnight Exam: BP 110/68 Pulse 70 Temp 97.6 F (36.4 C) (Oral) Resp 18 Ht 5' 6 (1.676 m) Wt 223 lb 3.2 oz (101.2 kg) SpO2 98% BMI 36.03 kg/m General appearance: No apparent respiratory distress, appears stated age and cooperative. HEENT: Normal cephalic, atraumatic without obvious deformity. Pupils equal, round, and reactive to light. Extra ocular muscles intact. Conjunctivae/corneas clear. Neck: Supple, with full range of motion. Respiratory: Normal respiratory effort. Rales noted bilaterally at lung bases, without Wheezes/Rhonchi. On 4L NC. Cardiovascular: Regular rate and rhythm with normal S1/S2, crescendo decrescendo murmur loudest at right upper sternal border, no rubs or gallops. Abdomen: Soft, non-tender, non-distended with normal bowel sounds. Musculoskeletal: No clubbing, cyanosis or edema bilaterally. Skin: Skin color, texture, turgor normal. No rashes or lesions. Neurologic: Neurovascularly intact without any focal sensory/motor deficits. Cranial nerves: II-XIIintact, grossly non-focal. Psychiatric: Alert and oriented, thought content appropriate, normal insight Capillary Refill: Brisk,< 3 seconds Peripheral Pulses: +2 palpable, equal bilaterally Labs: Recent Labs 01/26/20 0417 01/26/20 1158 WBC 6.9 -- HGB 9.7* 9.6* HCT 32.6* 31.8* PLT 133 -- Recent Labs 01/26/20 0417 NA 136 K 4.3 CL 94* CO2 34* BUN 20 CREATININE 0.8 CALCIUM 9.2 Recent Labs 01/25/20 0017 AST 14 ALT 8* BILITOT 0.6 ALKPHOS 62 Recent Labs 01/25/20 0017 INR 1.19* No results for input(s): CKTOTAL, TROPONINI in the last 72 hours. Urinalysis: Lab Results Component Value Date NITRU NEGATIVE 08/26/2019 WBCUA 0 TO 2 08/26/2019 BACTERIA NOT REPORTED 08/26/2019 RBCUA 2 TO 5 08/26/2019 SPECGRAV 1.015 08/26/2019 GLUCOSEU NEGATIVE 08/26/2019 Radiology: All imaging reviewed Diet: Diet NPO, After Midnight Code Status: Full Code * Gilmer Franklin - 01/26/2020 11:58 AM EDT Alert and oriented x4. Radial pluses are equal bilaterally +2. Pedal and Dorsal pulses equal bilaterally +1. Respirations are symmetrical and unlabored, lung soundsare clear and diminished throughoutbilaterally. S1 and S2 sinus rhythm. In bed with call light in reach and pathway is clear. Nilsa Franklin RSAddison/SN * Gilmer Franklin - 01/26/2020 10:00 AM EDT Awake and comfortable watching TV. Call light in reach and pathway is clear. Nilsa CIFUENTES/SN * Gilmer Franklin - 01/26/2020 8:15 AM EDT Alert and oriented x4. PERRL is 3 to 2 mm. 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 Pulses present bilaterally. Heart in sinus rhythm, S1 and S2. Lung sound diminished and clear in left lobes, right lobes diminished and has inspiratory wheezes in upper and mid lobes, lower is diminished and clear. Blanchable redness to buttocks, behind the ears, and under breast. Scattered bruisingon upper extremities bilaterally. Scabs on toes bilaterally. Denies pain and is comfortable sittingin bed, call light within reach, and pathway is clear. Nilsa CIFUENTES/SN * Flaquita Martinez RCP - 01/25/2020 11:20 AM EDT spiriva already done. * Brie Santamaria RN - 01/24/2020 11:30 PM EDT Pt admitted to [facility] via direct admit. Complaints: None. No IV medication infusing at this time. IV site free of s/s of infection or infiltration. Vital signs obtained. Assessment and data collection initiated. Two nurse skin assessment performed by Kayla and Tierney CHAMBERS. Oriented to room. Policies and procedures for explained. Maisha discussed hourly rounding with patient addressing 5 P's. Fall prevention and safety brochure discussed with patient. Bed alarm on. Call light in reach. The best day to schedule a follow up Dr appointment is: Thursday a.m. Explained patients right to have family, product sales representative or physician notified of their admission. Patient has Declined for physician to be notified. Patient has Declined for family/product sales representative to be notified. All questions answered with no further questions at this time. * Brie Thomas RN - 01/24/2020 12:33 PM EDT Patient is a 64 year old from [facility] unit ([place], [place]) with Dr Haider Torres transferring. Patient was admitted to [facility] 12/11/19 - 12/14/2019 for SOB (known history of severe aortic stenosis) and was evaluated for a TAVR. She was scheduled to have a TAVR tomorrow. Patient was admitted [facility] on 01/20/2020 for anemia (hgb 7.2 on admission). She has been given a total of 4 units PRBC and today hgb 9.1. They did an upper endoscopy which showed some erosion but nothing significant. Patient needs a colonoscopy but they feel too high risk until after her valve replacement. Troponin max while there was 3.9 (reference range <0.01). ECHO showed inferior wall hypokinesis and an EF of 35%. No gtts. Was given IV Lasix. Only blood thinner she is on is ASA. Patient on 4L NC (wears 3Lat home). BP 106/63, HR 74, SPO2 94%. TAVR put on hold per [facility] notes and she needs to be transferred here for evaluation per Dr Brumfield. Patient will go to a 3B bed under Dr Beauchamp with diagnosis severe aortic stenosis as soon as a bed opens. documented in this encounter* Davis Campbell RN - 02/03/2020 5:52 PM EDT S.O. of the pt. Has arrived to transport home. Taking to [facility] by wheelchair . Pt. Stable. * Davis Campbell RN - 02/03/2020 4:18 PM EDT Discharge instructions were given to the pt. Using teach back method. Prevention of heart failure was thoroughly reviewed together. Hand-outs from Nilsa Rodriguez's office and 3B education were given. This RN stressed daily weights in the AM. Keeping a watchful eye on food labels for sodium. Follow up appts. Were given to her. The pt. Stated that her son, was at her house when O2 company came to fix her concentrator. The repair man told her son that the concentrator was not working correctly and that she had only gotten room air with no oxygen in it. Medications were explained to her by ab Pharmacist to her. The pt. Has verbalized understanding and declined further questions. Currently waiting for family to transport home. * Davis Campbell RN - 02/03/2020 2:05 PM EDT The pt. Called out to state that she has to have her home O2 company bring a new O2 tank out to herhouse because the ones she has is not filling up correctly. She said that her family will come to pick her up after her O2 tank is filled. She stated it is a 2hr. Drive from there to [place]. * Teena Piña OT - 02/03/2020 8:[address] [facility] CCU-STEPDOWN 3B Occupational Therapy Daily Note Time: Time In: 806 Time Out: 816 Timed Code Treatment Minutes: 10 Minutes Minutes: 10 Date: 02/03/2020 Patient Name: Samreen Dawson, Gender: female Room: [facility]/036- : 1955 (64 y.o.) Referring Practitioner: Kim Gold MD Diagnosis: Shortness of Breath Additional Pertinent Hx: Per EMR, The patient is a 64 y.o.female with PMH of severe aortic stenosis managed by Dr. Brumfield, Cardiology, CAD treated with medical management, chronic systolic CHF, chronic respiratory failure with hypoxia ( recently on 3-4L L O2), who was seen in the ED at [facility] with progressively worsening SOB since discharge on January 26. She also mentioned an intermittent productive cough and nausea. She also mentioned associated moderate substernal chest pain. She denied vomiting, fevers, chills, abdominal pain, problems urinating, headache or peripheral neuropathy. She was discharged from [facility] on 01/26 after a diagnosis of acute on chronic systolic CHF and TAVR was planned then, however the patient had further workup for a GI bleed, as well as acute respiratory failure related to heart failure and the TAVR was postponed. At [place], the patient required Bipap. Labs were otherwise signficant for WBC to 17,400; Hgb 11.0, troponin 0.139, Na 133, K 5.2, AST 41, T bili 1.9, Cr 2.02 with setCXR showed moderate to severe pulmonary edema. She was treated with Lasix, morphine and Bipap and transferred to [facility] for further evaluation. Review of her chart shows that cardiac catheterization in December 2018 showed nonobstructive 3 vessel-Cad with 50% mild RCAstenosis and 50% ramus stenosis, mild disease in LAD, moderate to severe pulmonary hypretension, severe aortic stenosis. Cardiac cath in August 2019 showed mild to moderate single vessel disease involving the RCA and this was treated with medical therapy. Her last echo on 01/20/2020 showed an EF of 35% with severe inferolateral wall hypokinesis and mild to moderate LVH with critical aortic stenosisand an aortic valve of 0.5 cm^2, trace aortic regurgitation, tract TR and trace MR. Recent CTA of the chest on 01/19 showed diffuse ground-glass opacity, diffuse interstitial prominence, bibasilar parenchymal opacities and small bilateral effusions, right greater than left with no evidence for pulmonary embolism. The patient was admitted as a direct admit for further evaluation. The nurse, Raymond mentioned that if the patient is removed from Bipap, her O2 sats drop to the 70s. A astorga catheter wasinserted at outside facility to monitor Is and Os. Restrictions/Precautions: Restrictions/Precautions: General Precautions, Fall Risk Position Activity Restriction Other position/activity restrictions: 5 L O2 NC (at baseline pt wears 2-3 Liters at night, and daytime prn) SUBJECTIVE: cooperative & pleasant PAIN: 0/10: no c/o pain during session COGNITION: WFL ADDITIONAL ACTIVITIES: Issued moderate resistance band HEP, completed x 10 reps while seated in chair. Pt tolerated well. Handouts issued for home. ASSESSMENT: Activity Tolerance: Patient tolerance of treatment: fair with min RBs Discharge Recommendations: Home with assist PRN Equipment Recommendations: Equipment Needed: No Plan: Times per week: 5x Current Treatment Recommendations: Strengthening, Endurance Training, Functional Mobility Training,Safety Education & Training, Equipment Evaluation, Education, & procurement, Self-Care / ADL, Home Management Training, Patient/Caregiver Education & Training Patient Education Patient Education: BUE HEP Goals Short term goals Time Frame for Short term goals: Until discharge Short term goal 1: Pt will complete BUE light resistive exercises with min vcs for technique to increase indep and safety with all self cares. Short term goal 2: Pt will complete standing tolerance x 4 minutes with 2 UE release and S to increase indep and safety with all grooming. Short term goal 3: Pt will complete functional mobility to/from BR and HH distances with S to increase indep and safety with all toileting. Short term goal 4: Pt will complete LB dressing with LHAE PRN and min vcs for technique to increaseindep and safety with all self cares. Short term goal 5: Pt will verbalize 3 EC techniques Indep to implement in ADL routine. Following session, patient left in safe position with all fall risk precautions in place. * Flaquita Martinez RCP - 02/03/2020 8:03 AM EDT Not wearing bipap at this time * Margoth Prince DO - 02/03/2020 7:08 AM EDT Renal Progress Note [facility] Patient : Samreen Dawson; 64 y.o. Location: [id number]/036-A Attending: Ziyad Mallory MD Admit Date: 01/30/2020 Hospital Day: 4 Subjective: Nephrology is following the patient for LIBERTY, fluid overload. Patient seen and examined. Feeling better, on 3 L NC. Breathing back to baseline. Outpatient Medications: Medications Prior to Admission: dilTIAZem (CARDIZEM CD) 240 MG extended release capsule, Take 1 capsule by mouth daily HOLD for SBP </=100 or HR </=55 metoprolol tartrate (LOPRESSOR) 25 MG tablet, Take 0.5 tablets by mouth 2 times daily HOLD for SBP </=110 or HR </=55 pantoprazole (PROTONIX) 40 MG tablet, Take 1 tablet by mouth 2 times daily (before meals) OXYGEN, Inhale 3-4 L into the lungs continuous Magnesium 400 MG TABS, Take by mouth tiotropium (SPIRIVA RESPIMAT) 2.5 MCG/ACT AERS inhaler, Inhale 2 puffs into the lungs daily furosemide (LASIX) 40 MG tablet, Take 1 tablet by mouth 2 times daily potassium chloride (KLOR-CON M) 20 MEQ extended release tablet, Take 1 tablet by mouth 2 times daily acetaZOLAMIDE (DIAMOX) 250 MG tablet, One tab every Thursday and aspirin 81 MG tablet, Take 81 mg by mouth daily FLUoxetine (PROZAC) 20 MG tablet, Take 20 mg by mouth daily atorvastatin (LIPITOR) 80 MG tablet, Take 80 mg by mouth daily albuterol (PROVENTIL) (2.5 MG/3ML) 0.083% nebulizer solution, Take 2.5 mg by nebulization every 6 hours as needed for Wheezing albuterol sulfate HFA (VENTOLIN HFA) 108 (90 Base) MCG/ACT inhaler, Inhale 2 puffs into the lungs every 6 hours as needed for Wheezing Current Medications: Scheduled Meds: potassium chloride 20 mEq Oral Daily with breakfast furosemide 40 mg Oral BID metoprolol tartrate 12.5 mg Oral BID docusate sodium 100 mg Oral Daily polyethylene glycol 17 g Oral Daily sodium chloride flush 10 mL Intravenous 2 times per day [Held by provider] enoxaparin 40 mg Subcutaneous Daily aspirin 81 mg Oral Daily FLUoxetine 20 mg Oral Daily atorvastatin 80 mg Oral Nightly tiotropium 2 puff Inhalation Daily pantoprazole 40 mg Oral BID AC magnesium oxide 400 mg Oral Daily acetaZOLAMIDE 250 mg Oral Once per day on Thu Sofia insulin lispro 0-12 Units Subcutaneous TID WC insulin lispro 0-6 Units Subcutaneous Nightly midodrine 10 mg Oral TID WC Continuous Infusions: dextrose PRN Meds: sodium chloride flush, acetaminophen OR acetaminophen, promethazine OR ondansetron, potassium chloride OR potassium alternative oral replacement OR potassium chloride, potassium chloride, magnesium sulfate, albuterol, albuterol sulfate HFA, glucose, dextrose, glucagon (rDNA), dextrose, ipratropium-albuterol Input/Output: I/O last 3 completed shifts: In: 702.3 [P.O.:650; I.V.:10; IV Piggyback:42.3] Out: 1700 [Urine:1700]. Patient Vitals for the past 96 hrs (Last 3 readings): Weight 02/03/20 0325 219 lb 3.2 oz (99.4 kg) 02/02/20 0400 218 lb (98.9 kg) 01/31/20 0330 226 lb 1.6 oz (102.6 kg) Vital Signs: Temperature: Temp: 97.8 F (36.6 C) TMax: Temp (24hrs), Av F (36.7 C), Min:97.7 F (36.5 C), Max:98.4 F (36.9 C) Respirations: Resp: 18 Pulse: Pulse: 60 BP: BP: (!) 95/52 BP Range: Systolic (24hrs), Av , Min:95 , Max:129 Diastolic (24hrs), Av, Min:50, Max:62 Physical Examination: General: Awake, alert, no acute distress HEENT: NC/AT/ MMM Chest: Wheezes noted end expiratory right lung Cardiac: S1 S2 Abdomen: Soft, non-tender, Neuro: No facial droop, No Asterixis SKIN: No rashes, good skin turgor. Extremities: No edema, no cyanosis Labs: Recent Labs 02/01/20 0335 02/02/20 0356 02/03/20 0416 WBC -- -- 6.9 RBC -- -- 4.01* HGB 10.2* 10.2* 10.4* HCT 34.7* 34.6* 36.1* MCV -- -- 90.0 MCH -- -- 25.9* MCHC -- -- 28.8* PLT -- -- 174 MPV -- -- 11.5 BMP: Recent Labs 02/01/20 0335 02/02/20 0356 02/03/20 0416 NA 141 141 139 K 4.3 4.0 4.0 CL 95* 94* 95* CO2 38* 40* 36* BUN 34* 28* 24* CREATININE 1.1 0.9 1.0 GLUCOSE 103 106 108 CALCIUM 9.2 9.1 9.5 Phosphorus: No results for input(s): PHOS in the last 72 hours. Magnesium: Recent Labs 02/01/20 0335 02/02/20 0356 02/03/20 0416 MG 1.7 1.6 2.1 Albumin: No results for input(s): LABALBU in the last 72 hours. BNP: No results found for: BNP HOLLAND: No results found for: HOLLAND SPEP: Lab Results Component Value Date PROT 6.6 01/31/2020 UPEP: No results found for: LABPE C3: Lab Results Component Value Date C3 120 01/31/2020 C4: Lab Results Component Value Date C4 25 01/31/2020 MPO ANCA: No results found for: MPO PR3 ANCA: No results found for: PR3 Anti-GBM: No results found for: GBMABIGG Hep BsAg: Lab Results Component Value Date HEPBSAG Negative 01/31/2020 Hep C AB: Lab Results Component Value Date HEPCAB Negative 01/31/2020 Urinalysis/Chemistries: Lab Results Component Value Date NITRU NEGATIVE 01/30/2020 COLORU DARK YELLOW 01/30/2020 PHUR 5.0 01/30/2020 LABCAST >15 HYALINE 01/30/2020 LABCAST 0-4 C.GRAN 01/30/2020 WBCUA 15-25 01/30/2020 RBCUA > 200 01/30/2020 MUCUS NOT REPORTED 08/26/2019 TRICHOMONAS NOT REPORTED 08/26/2019 YEAST NONE SEEN 01/30/2020 BACTERIA NONE SEEN 01/30/2020 SPECGRAV 1.016 01/30/2020 LEUKOCYTESUR MODERATE 01/30/2020 UROBILINOGEN 0.2 01/30/2020 BILIRUBINUR NEGATIVE 01/30/2020 BLOODU LARGE 01/30/2020 GLUCOSEU NEGATIVE 08/26/2019 KETUA NEGATIVE 01/30/2020 AMORPHOUS NOT REPORTED 08/26/2019 Urine Sodium: No results found for: SHELDON Urine Potassium: No results found for: KUR Urine Chloride: No results found for: CLUR Urine Osmolarity: No results found for: OSMOU Urine Protein: No components found for: TOTALPROTEIN, URINE Urine Creatinine: No results found for: LABCREA Urine Eosinophils: No components found for: UEOS Impression and Plan: 1. LIBERTY: prerenal from renal hypoperfusion from hypotension + cardiorenal syndrome: resolved -bnow on po lasix 2. Acid/Base: chronic resp acidosis with metabolic compensation, on Diamox chronically which was resumed 3. S/p hyperkalemia :K 4.0 will resume kcl at once daily instead of BID on discharge. Repeat bmp 1 week if discharged today 4. Hypotension better on Midodrine, will continue 5. Hypomagnesemia: better 6. Pulmonary edema 7. Diastolic CHF 8. Severe 9. Anemia 10. COPD on Home O2 Stable for DC from renal standpoint Please don't hesitate to call with any questions. * Daniel Fischer MD - 02/02/2020 3:09 PM EDT PROGRESS NOTE Patient: Samreen Dawson Unit/Bed:[facility]36/036-A Date of : 1955 Acct: [id number] PCP: MANJU PRESTON Date of Admission: 01/30/2020 Assessment/Plan: Acute on chronic hypoxic/hypercapnic respiratory failure secondary to CHF exacerbation and severe aortic stenosis, improving Patient normally wears 3 L/min O2 at home Was placed on continuous BiPAP on admission, now on 3 L/min O2 ABG on arrival showed pH of 7.35, PCO2 56, PO2 80, bicarbonate 31 (of note in December 2019, patient also had respiratory acidosis) Please see below for CHF exacerbation and severe aortic stenosis management Home oxygen evaluation prior discharge Acute on chronic HFpEF 08/2019 ARIA showing EF of more than 55% proBNP 23,422 on arrival, worse compared to previous She was initially seen at [place], CXR showed moderate to severe pulmonary edema. She was treated with Lasix, morphine and Bipap and transferred to [facility] for further evaluation. She was started on Lasix 40 mg IV daily on admission, increased to 80 mg IV BID per cards 01/31 per nephrology decrease Lasix to 40 p.o twice daily, restart home Diamox twice weekly 02/01 switching from IV to Lasix p.o. 40 mg twice daily Cardiology and nephrology on board. Appreciate specialists input Daily weights, I/Os, fluid and salt restrictions Critical/severe aortic stenosis Cardiology on board. Appreciate cardiology input. Per cardiology ALEX Meier note on 01/30, Will need to f/up dr areli berry for reschedule of TAVR - will need OAC recs from GI, Gomez RN that works with [facility] will discuss with pt at 3pm of next step LIBERTY, prerenal from hypoperfusion secondary to hypotension and cardiorenal syndrome, resolved Cr 2.0 on arrival, baseline creatinine looks like between 0.8-1.1. No history of CKD, Nephrology on board. Appreciate nephrology input. Urine lytes appear prerenal from renal hypoperfusion from hypotension and cardiorenal syndrome, improving with diuresis 01/30 renal US showing probable bilateral cysts, nondistended bladder 02/01 Cr currently 0.9, BUN 28 NSVT, stable Occurred around 0608 in the morning of 01/31/2020 Patient reports intermittent palpitations this morning Cardiology recommend to stop Cardizem and restart beta-jalen Keep magnesium 2.0 and above and potassium 4.0 and above Continue telemetry Elevated troponin, likely demand ischemia secondary to CHF exacerbation, rule out ACS Of note, patient also had elevated troponin last admission, and per cardiology, likely demand ischemia secondary to GI bleed. Troponin down trending EKG showed NSR, RBBB Cardiology on board. Appreciate cardiology input. Hyperkalemia, resolved Patient received Lasix, Kayexalate and insulin Currently 4.0 BMP in a.m. Mild hypomagnesemia, 1.6 today cont magnesium oxide oral Check magnesium level in a.m. History of CAD S/p pacemaker Continue aspirin, Lipitor and BB Continue telemetry Hx of COPD Spiriva and albuterol q6h prn Hx of DM type II, well controlled Hgb A1c 6.3% (12/12/2019) Continue Accu-Chek, sliding scale insulin, hypoglycemia protocol History of hypotension, stable History of hypertension with hypotension Continue midodrine Continue beta jalen per cardiology Vital signs per protocol Chronic normocytic anemia, stable Hgb stable. Continue to monitor History of recent upper GI bleed/ PUD Hx of GERD last EGD showed healing gastric erosions Protonix bid Hyperlipidemia Continue atorvastatin History of CVA Continue aspirin and Lipitor Elevated LFTs, likely related to hepatic congestion in the setting of congestive heart failure, resolved Leukocytosis, likely reactive secondary to CHF exacerbation, resolved Chief Complaint: Shortness of breath Hospital Course: The patient is a 64 y.o.female with PMH of severe aortic stenosis managed by Dr. Brumfield, Cardiology,CAD treated with medical management, chronic systolic CHF, chronic respiratory failure with hypoxia( recently on 3-4L L O2), who was seen in the ED at [facility] with progressively worsening SOB since discharge on January 26. She also mentioned an intermittent productive cough and nausea. She also mentioned associated moderate substernal chest pain. She denied vomiting, fevers, chills, abdominal pain, problems urinating, headache or peripheral neuropathy. She was discharged from [facility] on 01/26 after a diagnosis of acute on chronic systolic CHF and TAVR was planned then, however the patient had further workup for a GI bleed, as well as acute respiratory failure related to heart failure and the TAVR was postponed. At [place], the patient required Bipap. Labs were otherwise signficant for WBC to 17,400; Hgb 11.0, troponin 0.139, Na 133, K 5.2, AST 41, T bili 1.9, Cr 2.02 with setCXR showed moderate to severe pulmonary edema. She was treated with Lasix, morphine and Bipap and tr ansferred to [facility] for further evaluation. Review of her chart shows that cardiac catheterization inAugu2018 showed nonobstructive 3 vessel-Cad with 50% mild RCA stenosis and 50% ramus stenosis, mild disease in LAD, moderate to severe pulmonary hypretension, severe aortic stenosis. Cardiac cath in August 2019 showed mild to moderate single vessel disease involving the RCA and this was treated with medical therapy. Her last echo on 01/20/2020 showed an EF of 35% with severe inferolateral wall hypokinesis and mild to moderate LVH with critical aortic stenosis and an aortic valve of 0.5 cm^2, trace aortic regurgitation, tract TR and trace MR. Recent CTA of the chest on 01/19 showed diffuse ground-glass opacity, diffuse interstitial prominence, bibasilar parenchymal opacities and small bilateral effusions, right greater than left with no evidence for pulmonary embolism. The patient was admitted as a direct admit for further evaluation. The nurse, Raymond mentioned that if the patient is removed from Bipap, her O2 sats drop to the 70s. A astorga catheter was inserted at outside facility to monitor Is and Os. Cardiology was consulted. Nephrology also consulted for LIBERTY. Subjective: The patient was seen and evaluated at bedside this morning. She is resting comfortably in a chair. She is satting well on room air, rest of vitals within normal limits. She states that her shortness of breath is back to baseline. She feels overall well, but states that she would like to stay 1 moreday. She currently denies chest pain, nausea, vomiting, palpitations, lightheadedness, dizziness, abdominal pain, diarrhea, melena, hematochezia, hematuria. Medications: Reviewed Infusion Medications dextrose Scheduled Medications furosemide 40 mg Oral BID metoprolol tartrate 12.5 mg Oral BID docusate sodium 100 mg Oral Daily polyethylene glycol 17 g Oral Daily sodium chloride flush 10 mL Intravenous 2 times per day [Held by provider] enoxaparin 40 mg Subcutaneous Daily aspirin 81 mg Oral Daily FLUoxetine 20 mg Oral Daily atorvastatin 80 mg Oral Nightly tiotropium 2 puff Inhalation Daily pantoprazole 40 mg Oral BID AC magnesium oxide 400 mg Oral Daily acetaZOLAMIDE 250 mg Oral Once per day on Mon Sofia insulin lispro 0-12 Units Subcutaneous TID WC insulin lispro 0-6 Units Subcutaneous Nightly midodrine 10 mg Oral TID WC PRN Meds: sodium chloride flush, acetaminophen OR acetaminophen, promethazine OR ondansetron, potassium chloride OR potassium alternative oral replacement OR potassium chloride, potassium chloride, magnesium sulfate, albuterol, albuterol sulfate HFA, glucose, dextrose, glucagon (rDNA), dextrose, ipratropium-albuterol Intake/Output Summary (Last 24 hours) at 02/02/2020 1509 Last data filed at 02/02/2020 1441 Gross per 24 hour Intake 707.3 ml Output 1850 ml Net -1142.7 ml Diet: DIET CARB CONTROL; No Added Salt (3-4 GM); Daily Fluid Restriction: 1800 ml Exam: BP 103/62 Pulse 76 Temp 97.7 F (36.5 C) (Oral) Resp 18 Ht 5' 6 (1.676 m) Wt 218 lb (98.9kg) SpO2 98% BMI 35.19 kg/m General appearance: No apparent distress, appears stated age and cooperative. Sitting in chair. On 3 L nasal cannula HEENT: Pupils equal, round, and reactive to light. Conjunctivae/corneas clear. Neck: Supple, with full range of motion. No jugular venous distention. Trachea midline. Respiratory: Normal respiratory effort on 3 L supplemental O2 via nasal cannula. Clear to auscultation, bilaterally without Rales/Wheezes/Rhonchi. Transmitted upper respiratory sounds Cardiovascular: Regular rate and rhythm with normal S1/S2 without rubs or gallops. [place] systolic ejection murmur best heard over the aortic area. Abdomen: Soft, non-tender, non-distended with normal bowel sounds. Musculoskeletal: passive and active ROM x 4 extremities. Skin: Skin color, texture, turgor normal. No rashes or lesions. Neurologic: Neurovascularly intact without any focal sensory/motor deficits. Cranial nerves: II-XIIintact, grossly non-focal. Psychiatric: Alert and oriented, thought content appropriate, normal insight Capillary Refill: Brisk,< 3 seconds Peripheral Pulses: +2 palpable, equal bilaterally Labs: Recent Labs 01/31/20 0408 02/01/20 0335 02/02/20 0356 WBC 8.3 -- -- HGB 9.3* 10.2* 10.2* HCT 33.4* 34.7* 34.6* PLT 133 -- -- Recent Labs 01/31/20 0407 02/01/20 0335 02/02/20 0356 NA 135 141 141 K 3.7 4.3 4.0 CL 93* 95* 94* CO2 31 38* 40* BUN 41* 34* 28* CREATININE 1.7* 1.1 0.9 CALCIUM 9.0 9.2 9.1 Recent Labs 01/31/20406 AST 39 ALT 42 BILIDIR 0.4* BILITOT 0.9 ALKPHOS 61 No results for input(s): INR in the last 72 hours. No results for input(s): CKTOTAL, TROPONINI in the last 72 hours. Urinalysis: Lab Results Component Value Date NITRU NEGATIVE 01/30/2020 WBCUA 15-25 01/30/2020 BACTERIA NONE SEEN 01/30/2020 RBCUA > 200 01/30/2020 BLOODU LARGE 01/30/2020 SPECGRAV 1.016 01/30/2020 GLUCOSEU NEGATIVE 08/26/2019 Radiology: XR CHEST PORTABLE Final Result 1. Moderate stable cardiomegaly with pulmonary vascular congestion suspicious for congestive heart failure. 2. Pulmonary edema. 3. Small bilateral pleural effusions with adjacent atelectasis/infiltrate. This report has been created using voice recognition software. It may contain minor errors which are inherent in voice recognition technology. Final report electronically signed by Dr. Federico Allen on 01/31/2020 3:43 PM US RENAL COMPLETE Final Result 1. Probable bilateral renal cysts. 2. Astorga catheter in a nondistended urinary bladder. Final report electronically signed by Dr. Federico Allen on 01/31/2020 8:39 AM XR CHEST PORTABLE Final Result 1. Cardiomegaly, status post pacemaker placement. 2. Increased pulmonary vascularity suggestive of congestive heart failure versus fluid overload, more prominent than on previous study dated 25 January 2020. 3. Increased density in the right and left lower lobes. This report has been created using voice recognition software. It may contain minor errors which are inherent in voice recognition technology. Final report electronically signed by DR VICKY WATSON on 01/30/2020 11:19 AM Diet: DIET CARB CONTROL; No Added Salt (3-4 GM); Daily Fluid Restriction: 1800 ml DVT prophylaxis: [x] Lovenox [] SCDs [] SQ Heparin [] Encourage ambulation [] Already on Anticoagulation Disposition: [] Home [] TCU [] Rehab [] Psych [] SNF [] [facility] [x] Other-pending Code Status: Limited PT/OT Eval Status: Associated attestation - Ziyad Mallory MD - 02/02/2020 8:14 PM EDT Attending Supervising Physician s Attestation Statement I saw and evaluated the patient independently. I discussed the findings and plans with resident physician (Dr. Daniel Woodward MD.) and agree as documented in his note with additional note: --I agree with assessment and plan of the resident. --Patient need TAVR for severe aortic stenosis, cardiology on the case. --CHF exacerbation: Continue CHF exacerbation protocol with restricting sodium, daily weights, fluid restriction and diuretics. Nephrology on the case diuresing. --Patient continued to decline home health services. --Currently weaned off to 4 L nasal cannula oxygen, wheeziness improved, SARA 4/6 best heard at the right second intercostal space. Continue LAMA, AUTUMN, albuterol nebulizer as needed, monitor closely. --LIBERTY/resolved --Didn't reach goal for discharge, may consider tomorrow. Plan discussed with the patient and nurse, patient verbalized understanding and was agreeable with the plan. * Meryl Mahajan - 02/02/2020 2:55 PM EDT SBAR reported to primary nurse, REYES Drummond. Musa Mahajan SN/RSC * Teena Piña OT - 02/02/2020 2:08 PM EDT [facility] CCU-STEPDOWN 3B Occupational Therapy Daily Note Time: Time In: 1342 Time Out: 1357 Timed Code Treatment Minutes: 15 Minutes Minutes: 15 Date: 02/02/2020 Patient Name: Samreen aDwson, Gender: female Room: [facility]- : 1955 (64 y.o.) Referring Practitioner: Kim Gold MD Diagnosis: Shortness of Breath Additional Pertinent Hx: Per EMR, The patient is a 64 y.o.female with PMH of severe aortic stenosis managed by Dr. Brumfield, Cardiology, CAD treated with medical management, chronic systolic CHF, chronic respiratory failure with hypoxia ( recently on 3-4L L O2), who was seen in the ED at [facility] with progressively worsening SOB since discharge on January 26. She also mentioned an intermittent productive cough and nausea. She also mentioned associated moderate substernal chest pain. She denied vomiting, fevers, chills, abdominal pain, problems urinating, headache or peripheral neuropathy. She was discharged from [facility] on 01/26 after a diagnosis of acute on chronic systolic CHF and TAVR was planned then, however the patient had further workup for a GI bleed, as well as acute respiratory failure related to heart failure and the TAVR was postponed. At [place], the patient required Bipap. Labs were otherwise signficant for WBC to 17,400; Hgb 11.0, troponin 0.139, Na 133, K 5.2, AST 41, T bili 1.9, Cr 2.02 with setCXR showed moderate to severe pulmonary edema. She was treated with Lasix, morphine and Bipap and transferred to [facility] for further evaluation. Review of her chart shows that cardiac catheterization in December 2018 showed nonobstructive 3 vessel-Cad with 50% mild RCAstenosis and 50% ramus stenosis, mild disease in LAD, moderate to severe pulmonary hypretension, severe aortic stenosis. Cardiac cath in August 2019 showed mild to moderate single vessel disease involving the RCA and this was treated with medical therapy. Her last echo on 01/20/2020 showed an EF of 35% with severe inferolateral wall hypokinesis and mild to moderate LVH with critical aortic stenosisand an aortic valve of 0.5 cm^2, trace aortic regurgitation, tract TR and trace MR. Recent CTA of the chest on 01/19 showed diffuse ground-glass opacity, diffuse interstitial prominence, bibasilar parenchymal opacities and small bilateral effusions, right greater than left with no evidence for pulmonary embolism. The patient was admitted as a direct admit for further evaluation. The nurseRaymond mentioned that if the patient is removed from Bipap, her O2 sats drop to the 70s. A astorga catheter wasinserted at outside facility to monitor Is and Os. Restrictions/Precautions: Restrictions/Precautions: General Precautions, Fall Risk Position Activity Restriction Other position/activity restrictions: 5 L O2 NC (at baseline pt wears 2-3 Liters at night, and daytime prn) SUBJECTIVE: Pt up in bathroom upon arrival of therapist, cooperative & pleasant, talkative PAIN: 0/10: no c/o pain today COGNITION: WFL ADL: Toileting: Modified Independent. Toilet Transfer: Modified Independent. . BALANCE: Standing Balance: Modified Independent. BED MOBILITY: Not Tested TRANSFERS: Sit to Stand: Modified Independent. FUNCTIONAL MOBILITY: Assistive Device: None Assist Level: Modified Independent. Distance: To and from bathroom indep with maneuvering O2 line ADDITIONAL ACTIVITIES: Completed BUE AROM for scapula elevation & retraction x 10 reps in standing. B shoulder flexion, horizontal add/abduction, add/abduction, elbow flexion x 10 reps with 1# weight. ASSESSMENT: Activity Tolerance: Patient tolerance of treatment: good. Discharge Recommendations: Continue to assess pending progress, Home with Home health OT Equipment Recommendations: Equipment Needed: No Plan: Times per week: 5x Current Treatment Recommendations: Strengthening, Endurance Training, Functional Mobility Training,Safety Education & Training, Equipment Evaluation, Education, & procurement, Self-Care / ADL, Home Management Training, Patient/Caregiver Education & Training Patient Education Patient Education: UE exercises, energy conservation & pacing tasks at home Goals Short term goals Time Frame for Short term goals: Until discharge Short term goal 1: Pt will complete BUE light resistive exercises with min vcs for technique to increase indep and safety with all self cares. Short term goal 2: Pt will complete standing tolerance x 4 minutes with 2 UE release and S to increase indep and safety with all grooming. Short term goal 3: Pt will complete functional mobility to/from BR and HH distances with S to increase indep and safety with all toileting. Short term goal 4: Pt will complete LB dressing with LHAE PRN and min vcs for technique to increaseindep and safety with all self cares. Short term goal 5: Pt will verbalize 3 EC techniques Indep to implement in ADL routine. Following session, patient left in safe position with all fall risk precautions in place. * Meryl Mahajan - 02/02/2020 12:47 PM EDT Alert, oriented x4. Mucous membranes moist, no lesions. Apical pulse 59, regular rhythm, murmur heard. Wheezes heard in left lung base. Right lung sounds clear. Capillary refill and skin turgor less than 3 seconds bilaterally. Lower extremities red, warm, dry skin present. Dorsalis pedis and posterior tibialis +2 bilaterally. Patient denies dizziness, SOB, lightheadedness. Patient is up in chair.Chair alarm on, call light in reach. Musa Mahajan SN/RSC * Renea Alba PA-C - 02/02/2020 12:44 PM EDT Cardiology Progress Note Patient: Samreen Dawson Date of : 1955 Acct: [id number] Admit Date: 01/30/2020 Primary [employer] Ready Mechanic: Ritchie Brumfield MD Seen by dr orantes Note per dr orantes Reason for Consultation: Shortness of breath History Of Present Illness: 64 y.o. pleasant female with history of PAF, severe aortic stenosis mean gradient of 49 mm Hg, Diastolic HF, heavily calcified coronary arteries who presented to the hospital with complaints of SOB on exertion CT chest showed ground glass opacities with diffuse interstitial prominence consistent with Acute CHF. Patient was scheduled for TAVR but cancelled due to acute hospitalization. Subjective (Events in last 24 hours): Pt awake and alert. NAD. No cp. Breathing has improved and appears close to baseline. On 3 L/min O2. Has chronic orthopnea. +VERA. No edema Net I/o -5.2 L weigt down 8 lb Objective: BP 103/62 Pulse 76 Temp 97.7 F (36.5 C) (Oral) Resp 18 Ht 5' 6 (1.676 m) Wt 218 lb (98.9kg) SpO2 98% BMI 35.19 kg/m TELEMETRY: nsr, no further NSVT Physical Exam: General Appearance: alert and oriented to person, place and time, in no acute distress Cardiovascular: normal rate, regular rhythm, normal S1 and S2, +murmur Pulmonary/Chest: diminished BS Abdomen: soft, non-tender, non-distended, normal bowel sounds, no masses Extremities: no cyanosis, clubbing or edema, pulse Skin: warm and dry, no rash or erythema Head: normocephalic and atraumatic Eyes: pupils equal, round, and reactive to light Neck: supple and non-tender without mass, no thyromegaly Musculoskeletal: normal range of motion, no joint swelling, deformity or tenderness Neurological: alert, oriented, normal speech, no focal findings or movement disorder noted Medications: furosemide 40 mg Oral BID metoprolol tartrate 12.5 mg Oral BID docusate sodium 100 mg Oral Daily polyethylene glycol 17 g Oral Daily sodium chloride flush 10 mL Intravenous 2 times per day [Held by provider] enoxaparin 40 mg Subcutaneous Daily aspirin 81 mg Oral Daily FLUoxetine 20 mg Oral Daily atorvastatin 80 mg Oral Nightly tiotropium 2 puff Inhalation Daily pantoprazole 40 mg Oral BID AC magnesium oxide 400 mg Oral Daily acetaZOLAMIDE 250 mg Oral Once per day on Mon [place] insulin lispro 0-12 Units Subcutaneous TID WC insulin lispro 0-6 Units Subcutaneous Nightly midodrine 10 mg Oral TID WC dextrose sodium chloride flush, 10 mL, PRN acetaminophen, 650 mg, Q6H PRN Or acetaminophen, 650 mg, Q6H PRN promethazine, 12.5 mg, Q6H PRN Or ondansetron, 4 mg, Q6H PRN potassium chloride, 40 mEq, PRN Or potassium alternative oral replacement, 40 mEq, PRN Or potassium chloride, 10 mEq, PRN potassium chloride, 10 mEq, PRN magnesium sulfate, 2 g, PRN albuterol, 2.5 mg, Q6H PRN albuterol sulfate HFA, 2 puff, Q6H PRN glucose, 15 g, PRN dextrose, 12.5 g, PRN glucagon (rDNA), 1 mg, PRN dextrose, 100 mL/hr, PRN ipratropium-albuterol, 1 ampule, Q4H PRN Lab Data: Cardiac Enzymes: Recent Labs 01/30/20 1338 CKTOTAL 71 CBC: Lab Results Component Value Date WBC 8.3 01/31/2020 RBC 3.55 01/31/2020 RBC 4.68 10/16/2011 HGB 10.2 02/02/2020 HCT 34.6 02/02/2020 PLT 133 01/31/2020 CMP: Lab Results Component Value Date NA 141 02/02/2020 K 4.0 02/02/2020 CL 94 02/02/2020 CO2 40 02/02/2020 BUN 28 02/02/2020 CREATININE 0.9 02/02/2020 GFRAA >60 01/17/2020 LABGLOM 63 02/02/2020 GLUCOSE 106 02/02/2020 GLUCOSE 86 10/16/2011 CALCIUM 9.1 02/02/2020 Hepatic Function Panel: Lab Results Component Value Date ALKPHOS 61 01/31/2020 ALT 42 01/31/2020 AST 39 01/31/2020 PROT 6.6 01/31/2020 BILITOT 0.9 01/31/2020 BILIDIR 0.4 01/31/2020 LABALBU 3.4 01/31/2020 LABALBU 4.4 10/16/2011 Magnesium: Lab Results Component Value Date MG 1.6 02/02/2020 MG 2.0 10/16/2011 PT/INR: Lab Results Component Value Date PROTIME 10.6 10/16/2011 INR 1.19 01/25/2020 HgBA1c: Lab Results Component Value Date LABA1C 4.9 01/30/2020 FLP: Lab Results Component Value Date TRIG 107 12/12/2019 HDL 37 12/12/2019 LDLCALC 77 12/12/2019 TSH: Lab Results Component Value Date TSH 1.96 08/26/2019 Assessment: Acute on chronic hypoxemic resp failure - on 3 Lmin O2, normally on 3 L/min O2 at home Acute on chronic diastolic CHF - improving Ef >55 per ARIA 09/01/19 Severe S/p Hyperkalemia LIBERTY/CKD Hx PAF per dr stone note 01/17/20 - not on OAC at that time Review of ekgs here show all nsr Hx PPM Hx nonobstructive CAD per cath 08/2019 Hx HTN - midodrine started this admission Hx iron deficiency Anemia Hx GIB Hx COPD Hx CVA [id number] Plan: Daily I/o and weights 2 liter fluid restriction and 2gm sodium diet Keep mag >2 and K >4 Diuresis per nephro - changed to po today Avoid nitrates Cont statin/asa/BB/lasix Pt not on OAC by primary cardiology prior to admission [facility] following in the background to determine timing of TAVR and will call pt - will need recs from GI on OAC Will see prn * Ashley Fischer - 02/02/2020 11:40 AM EDT SBAR report given to Meryl SOLIZ/ESAU. Kirk SOLIZ/RSC. * Ashley Fischer - 02/02/2020 10:25 AM EDT Pt alert and oriented x4. Speech is clear and appropriate. PERRL 4mm to 2mm. Heart sounds regular. Pt on n/c 4L. Lung sounds diminished. Bruising noted on left and right forearms. Discoloration notedon left and right lower extremities. Pt states they are from old sores. Pedal pulses weak +1 and equal. Pedal push and pull moderate and equal. Hand grasp moderate and equal. Radial pulses moderate +2 and equal. Abdomen rotund and soft. Firm mass palpable in RLQ/umbilicus. Bowel sounds active in all 4 quadrants. Pt denies pain. Pt is resting in chair. Call light is within reach. Tray table is within reach. Kirk /RSC. * Gaby Denson - 02/02/2020 8:15 AM EDT [facility] INPATIENT PHYSICAL THERAPY Discharge NOTE [facility] CCU-STEPDOWN 3B - 3B-36/036-A Time In: 0746 Time Out: 0810 Timed Code Treatment Minutes: 24 Minutes Minutes: 24 Date: 02/02/2020 Patient Name: Samreen Dawson, Gender: female : 1955 (64 y.o.) Referring Practitioner: Kim Gold MD Diagnosis: shortness of breath Additional Pertinent Hx: Per H&P, The patient is a 64 y.o.female with PMH of severe aortic stenosis managed by Dr. Brumfield, Cardiology, CAD treated with medical management, chronic systolic CHF, chronic respiratory failure with hypoxia ( recently on 3-4L L O2), who was seen in the ED at [facility] with progressively worsening SOB since discharge on January 26. She also mentioned an intermittent productive cough and nausea. She also mentioned associated moderate substernal chest pain. She denied vomiting, fevers, chills, abdominal pain, problems urinating, headache or peripheral neuropathy. She was discharged from [facility] on 01/26 after a diagnosis of acute on chronic systolic CHF and TAVR was planned then, however the patient had further workup for a GI bleed, as well as acute respiratory failure related to heart failure and the TAVR was postponed. At [place], the patient required Bipap. Labs were otherwise signficant for WBC to 17,400; Hgb 11.0, troponin 0.139, Na 133, K 5.2, AST 41, T bili 1.9, Cr 2.02 with setCXR showed moderate to severe pulmonary edema. She was treated with Lasix, morphine and Bipap and transferred to [facility] for further evaluation. Review of her chart shows that cardiac catheterization in December 2018 showed nonobstructive 3 vessel-Cad with 50% mildRCA stenosis and 50% ramus stenosis, mild disease in LAD, moderate to severe pulmonary hypretension, severe aortic stenosis. Cardiac cath in August 2019 showed mild to moderate single vessel disease involving the RCA and this was treated with medical therapy. Her last echo on 01/20/2020 showed an EF of 35% with severe inferolateral wall hypokinesis and mild to moderate LVH with critical aortic stenosis and an aortic valve of 0.5 cm^2, trace aortic regurgitation, tract TR and trace MR. Recent CTA of the chest on 01/19 showed diffuse ground-glass opacity, diffuse interstitial prominence, bibasilarparenchymal opacities and small bilateral effusions, right greater than left with no evidence for pulmonary embolism. The patient was admitted as a direct admit for further evaluation. The nurse, Raymond mentioned that if the patient is removed from Bipap, her O2 sats drop to the 70s. A astorga catheterwas inserted at outside facility to monitor Is and Os. On 5L O2 this date. Prior Level of Function: Lives With: Spouse(fiance) Type of Home: Apartment Home Layout: One level Home Access: Level entry Home Equipment: Rolling walker(None used prior) Bathroom Shower/Tub: Tub/Shower unit, Shower chair with back Bathroom Toilet: Standard Bathroom Equipment: Hand-held shower Bathroom Accessibility: Accessible ADL Assistance: Independent Homemaking Assistance: Independent Homemaking Responsibilities: Yes Ambulation Assistance: Independent Transfer Assistance: Independent Active Telephone Betting Clerk: Yes Restrictions/Precautions: Restrictions/Precautions: General Precautions, Fall Risk Position Activity Restriction Other position/activity restrictions: 5 L O2 NC (at baseline pt wears 2-3 Liters at night, and daytime prn) SUBJECTIVE: pt up in chair on arrival agreeable for therapy, pt on 5L o2 during session with the exception due portable tank needs to be on 6L, pt reported that she has been allowed to get up in her room on her own but only walking in the halls with therapies I did highly encourage her to ask staffto assist with walking in halls PAIN: 0/10: OBJECTIVE: Bed Mobility: Not tested pt up in chair reported that she is sleeping up in chair Transfers: Sit to Stand: Modified Independent Stand to Sit:Modified Independent Ambulation: Supervision, for longer distance and mod I in room Distance: 220x1 Surface: Level Tile Device:No Device Gait Deviations: Slightly slower deja however I had provided cues to pace herself, pt is aware of her O2 lines I did assist with her O2 tank this date, pt was minimally SOB following walk but improved within ~ 30 sec which was better than yesterday, I highly encouraged her to ask staff to get her in the halls and aim for at least 3 times a day, O2 sats above 95% during session Balance: Dynamic balance w/o UE at support pt reaching out of base of support and even to the floor to retrieve objects with mod I Exercise: Patient was guided in 1 set(s) 10-15 reps of exercise to both lower extremities. Seated marches, Seated hamstring curls, Seated heel/toe raises, Long arc quads and hip abd/add, . Exercises were completed for increased independence with functional mobility. Functional Outcome Measures: Completed [facility] Inpatient Mobility Raw Score : 22 [facility] Inpatient T-Scale Score : 53.28 ASSESSMENT: Assessment: Patient progressing toward established goals. and pt cont to require O2 with gait but demonstrated good awareness of her line this date, she was SOB with activity however recovered much quicker this date highly encouraged pt to have staff walk in halls for her to cont to work On endurance Activity Tolerance: Patient tolerance of treatment: good. Equipment Recommendations:Equipment Needed: No Discharge Recommendations: Home with Home assist PRN Plan: Will discharge pt from inpatient therapy at this time she is mod I with transfers she does require supervision for gait in halls to assist w/ management of O2 tank Plan of care changed this date and approved by supervising PT, Dandre Colin. Patient Education Patient Education: walking program Goals: Patient goals : to return home with fiance Short term goals Time Frame for Short term goals: by discharge Short term goal 1: Pt to perform bed mobility with supervision to improve ease of getting in and out of bed. Short term goal 2: Pt to perform sit<>stand with mod I to improve ease of transfers. MET Short term goal 3: Pt to ambulate >150 ft without an AD at supervision to improe ability to navigate within the home and community. MET M[facility] goals Time Frame for emt intermediate goals : N/A secondary to short ELOS Following session, patient left in safe position with all fall risk precautions in place. * Ashley Fischer - 02/02/2020 8:00 AM EDT Pt assisted to toilet. Pt requests bath after breakfast. Pt states she will bathe herself. Pt assisted back to chair. Pt denies pain. Tray table is within reach. Call light is within reach. Kirk SN/RSC. * Margoth Prince DO - 02/02/2020 7:40 AM EDT Renal Progress Note [facility] Patient : Samreen Dawson; 64 y.o. Location: 3B-36/036-A Attending: Ziyad Mallory MD Admit Date: 01/30/2020 Hospital Day: 3 Subjective: Nephrology is following the patient for LIBERTY, fluid overload. Patient seen and examined. Astorga removed, states urinating well. On 3 L NC. Breathing improved and near baseline. Outpatient Medications: Medications Prior to Admission: dilTIAZem (CARDIZEM CD) 240 MG extended release capsule, Take 1 capsule by mouth daily HOLD for SBP </=100 or HR </=55 metoprolol tartrate (LOPRESSOR) 25 MG tablet, Take 0.5 tablets by mouth 2 times daily HOLD for SBP </=110 or HR </=55 pantoprazole (PROTONIX) 40 MG tablet, Take 1 tablet by mouth 2 times daily (before meals) OXYGEN, Inhale 3-4 L into the lungs continuous Magnesium 400 MG TABS, Take by mouth tiotropium (SPIRIVA RESPIMAT) 2.5 MCG/ACT AERS inhaler, Inhale 2 puffs into the lungs daily furosemide (LASIX) 40 MG tablet, Take 1 tablet by mouth 2 times daily potassium chloride (KLOR-CON M) 20 MEQ extended release tablet, Take 1 tablet by mouth 2 times daily acetaZOLAMIDE (DIAMOX) 250 MG tablet, One tab every Thursday and aspirin 81 MG tablet, Take 81 mg by mouth daily FLUoxetine (PROZAC) 20 MG tablet, Take 20 mg by mouth daily atorvastatin (LIPITOR) 80 MG tablet, Take 80 mg by mouth daily albuterol (PROVENTIL) (2.5 MG/3ML) 0.083% nebulizer solution, Take 2.5 mg by nebulization every 6 hours as needed for Wheezing albuterol sulfate HFA (VENTOLIN HFA) 108 (90 Base) MCG/ACT inhaler, Inhale 2 puffs into the lungs every 6 hours as needed for Wheezing Current Medications: Scheduled Meds: furosemide 40 mg Oral BID metoprolol tartrate 12.5 mg Oral BID docusate sodium 100 mg Oral Daily polyethylene glycol 17 g Oral Daily sodium chloride flush 10 mL Intravenous 2 times per day [Held by provider] enoxaparin 40 mg Subcutaneous Daily aspirin 81 mg Oral Daily FLUoxetine 20 mg Oral Daily atorvastatin 80 mg Oral Nightly tiotropium 2 puff Inhalation Daily pantoprazole 40 mg Oral BID AC magnesium oxide 400 mg Oral Daily acetaZOLAMIDE 250 mg Oral Once per day on Thu insulin lispro 0-12 Units Subcutaneous TID WC insulin lispro 0-6 Units Subcutaneous Nightly midodrine 10 mg Oral TID Continuous Infusions: dextrose PRN Meds: sodium chloride flush, acetaminophen OR acetaminophen, promethazine OR ondansetron, potassium chloride OR potassium alternative oral replacement OR potassium chloride, potassium chloride, magnesium sulfate, albuterol, albuterol sulfate HFA, glucose, dextrose, glucagon (rDNA), dextrose, ipratropium-albuterol Input/Output: I/O last 3 completed shifts: In: 955 [P.O.:955] Out: 3150 [Urine:3150]. Patient Vitals for the past 96 hrs (Last 3 readings): Weight 02/02/20 0400 218 lb (98.9 kg) 01/31/20 0330 226 lb 1.6 oz (102.6 kg) 01/30/20 0710 220 lb (99.8 kg) Vital Signs: Temperature: Temp: 98.1 F (36.7 C) TMax: Temp (24hrs), Av.9 F (36.6 C), Min:97.4 F (36.3 C), Max:98.1 F (36.7 C) Respirations: Resp: 18 Pulse: Pulse: 60 BP: BP: (!) 114/59 BP Range: Systolic (24hrs), Av , Min:98 , Max:114 Diastolic (24hrs), Av, Min:55, Max:62 Physical Examination: General: Awake, alert, no acute distress HEENT: NC/AT/ MMM Chest: Clear no rales Cardiac: S1 S2 Abdomen: Soft, non-tender, Neuro: No facial droop, No Asterixis SKIN: No rashes, good skin turgor. Extremities: No edema, no cyanosis Labs: Recent Labs 01/30/20 0916 01/31/20 04002/01/2033402/02/20 0356 WBC 12.5* 8.3 -- -- RBC 3.85* 3.55* -- -- HGB 10.2* 9.3* 10.2* 10.2* HCT 35.9* 33.4* 34.7* 34.6* MCV 93.2 94.1 -- -- MCH 26.5 26.2 -- -- MCHC 28.4* 27.8* -- -- PLT 136 133 -- -- MPV 12.0 12.3 -- -- BMP: Recent Labs 01/31/2040602/01/2033402/02/20 0356 NA 135 141 141 K 3.7 4.3 4.0 CL 93* 95* 94* CO2 31 38* 40* BUN 41* 34* 28* CREATININE 1.7* 1.1 0.9 GLUCOSE 135* 103 106 CALCIUM 9.0 9.2 9.1 Phosphorus: No results for input(s): PHOS in the last 72 hours. Magnesium: Recent Labs 01/31/2040602/01/2033420 0356 MG 2.0 1.7 1.6 Albumin: Recent Labs 01/30/20 0916 01/31/20 0407 LABALBU 3.7 3.4* BNP: No results found for: BNP HOLLAND: No results found for: HOLLAND SPEP: Lab Results Component Value Date PROT 6.6 01/31/2020 UPEP: No results found for: LABPE C3: Lab Results Component Value Date C3 120 01/31/2020 C4: Lab Results Component Value Date C4 25 01/31/2020 MPO ANCA: No results found for: MPO PR3 ANCA: No results found for: PR3 Anti-GBM: No results found for: GBMABIGG Hep BsAg: Lab Results Component Value Date HEPBSAG Negative 01/31/2020 Hep C AB: Lab Results Component Value Date HEPCAB Negative 01/31/2020 Urinalysis/Chemistries: Lab Results Component Value Date NITRU NEGATIVE 01/30/2020 COLORU DARK YELLOW 01/30/2020 PHUR 5.0 01/30/2020 LABCAST >15 HYALINE 01/30/2020 LABCAST 0-4 C.GRAN 01/30/2020 WBCUA 15-25 01/30/2020 RBCUA > 200 01/30/2020 MUCUS NOT REPORTED 08/26/2019 TRICHOMONAS NOT REPORTED 08/26/2019 YEAST NONE SEEN 01/30/2020 BACTERIA NONE SEEN 01/30/2020 SPECGRAV 1.016 01/30/2020 LEUKOCYTESUR MODERATE 01/30/2020 UROBILINOGEN 0.2 01/30/2020 BILIRUBINUR NEGATIVE 01/30/2020 BLOODU LARGE 01/30/2020 GLUCOSEU NEGATIVE 08/26/2019 KETUA NEGATIVE 01/30/2020 AMORPHOUS NOT REPORTED 08/26/2019 Urine Sodium: No results found for: SHELDON Urine Potassium: No results found for: KUR Urine Chloride: No results found for: CLUR Urine Osmolarity: No results found for: OSMOU Urine Protein: No components found for: TOTALPROTEIN, URINE Urine Creatinine: No results found for: LABCREA Urine Eosinophils: No components found for: UEOS Impression and Plan: 1. LIBERTY: prerenal from renal hypoperfusion from hypotension + cardiorenal syndrome: resolved -breathing improved near baseline, will change to po lasix 40 mg BID 2. Acid/Base: chronic resp acidosis with metabolic compensation. Bicarb rising, on Diamox chronically which was resumed 3. S/p hyperkalemia :K 4.0 4. Hypotension better on Midodrine, will continue 5. Hypomagnesemia: receiving IV mag 6. Pulmonary edema 7. Diastolic CHF 8. Severe 9. Anemia 10. COPD on Home O2 Please don't hesitate to call with any questions. * Gela Villa, OT - 02/01/2020 2:15 PM EDT [facility] OCCUPATIONAL THERAPY MISSED TREATMENT NOTE [facility] CCU-STEPDOWN 3B 3B36/036-A Date: 02/01/2020 Patient Name: Samreen Dawson CSN: [id number] : 1955 (64 y.o.) Gender: female Referring Practitioner: Kim Gold MD Diagnosis: Shortness of Breath REASON FOR MISSED TREATMENT: Pt reports just finishing a bath and feeling fatigued/SOB. Requesting to hold OT this PM. * Margoth Prince DO - 02/01/2020 12:06 PM EDT Renal Progress Note [facility] Patient : Samreen Dawson; 64 y.o. Location: 36036-A Attending: Ziyad Mallory MD Admit Date: 01/30/2020 Hospital Day: 2 Subjective: Nephrology is following the patient for LIBERTY, fluid overload. Patient seen and examined. Feeling better. Good urine output. On 5 L NC. Breathing improved but not back to baseline. Outpatient Medications: Medications Prior to Admission: dilTIAZem (CARDIZEM CD) 240 MG extended release capsule, Take 1 capsule by mouth daily HOLD for SBP </=100 or HR </=55 metoprolol tartrate (LOPRESSOR) 25 MG tablet, Take 0.5 tablets by mouth 2 times daily HOLD for SBP </=110 or HR </=55 pantoprazole (PROTONIX) 40 MG tablet, Take 1 tablet by mouth 2 times daily (before meals) OXYGEN, Inhale 3-4 L into the lungs continuous Magnesium 400 MG TABS, Take by mouth tiotropium (SPIRIVA RESPIMAT) 2.5 MCG/ACT AERS inhaler, Inhale 2 puffs into the lungs daily furosemide (LASIX) 40 MG tablet, Take 1 tablet by mouth 2 times daily potassium chloride (KLOR-CON M) 20 MEQ extended release tablet, Take 1 tablet by mouth 2 times daily acetaZOLAMIDE (DIAMOX) 250 MG tablet, One tab every Thursday and aspirin 81 MG tablet, Take 81 mg by mouth daily FLUoxetine (PROZAC) 20 MG tablet, Take 20 mg by mouth daily atorvastatin (LIPITOR) 80 MG tablet, Take 80 mg by mouth daily albuterol (PROVENTIL) (2.5 MG/3ML) 0.083% nebulizer solution, Take 2.5 mg by nebulization every 6 hours as needed for Wheezing albuterol sulfate HFA (VENTOLIN HFA) 108 (90 Base) MCG/ACT inhaler, Inhale 2 puffs into the lungs every 6 hours as needed for Wheezing Current Medications: Scheduled Meds: furosemide 40 mg Intravenous BID metoprolol tartrate 12.5 mg Oral BID docusate sodium 100 mg Oral Daily polyethylene glycol 17 g Oral Daily sodium chloride flush 10 mL Intravenous 2 times per day [Held by provider] enoxaparin 40 mg Subcutaneous Daily aspirin 81 mg Oral Daily FLUoxetine 20 mg Oral Daily atorvastatin 80 mg Oral Nightly tiotropium 2 puff Inhalation Daily pantoprazole 40 mg Oral BID AC magnesium oxide 400 mg Oral Daily acetaZOLAMIDE 250 mg Oral Once per day on Thu insulin lispro 0-12 Units Subcutaneous TID insulin lispro 0-6 Units Subcutaneous Nightly midodrine 10 mg Oral TID Continuous Infusions: dextrose PRN Meds: sodium chloride flush, acetaminophen OR acetaminophen, promethazine OR ondansetron, potassium chloride OR potassium alternative oral replacement OR potassium chloride, potassium chloride, magnesium sulfate, albuterol, albuterol sulfate HFA, glucose, dextrose, glucagon (rDNA), dextrose, ipratropium-albuterol Input/Output: I/O last 3 completed shifts: In: 2064 [P.O.:2024; I.V.:40] Out: 4200 [Urine:4200]. Patient Vitals for the past 96 hrs (Last 3 readings): Weight 01/31/20 0330 226 lb 1.6 oz (102.6 kg) 01/30/20 0710 220 lb (99.8 kg) Vital Signs: Temperature: Temp: 97.4 F (36.3 C) TMax: Temp (24hrs), Av.9 F (36.6 C), Min:97.4 F (36.3 C), Max:98.2 F (36.8 C) Respirations: Resp: 18 Pulse: Pulse: 62 BP: BP: (!) 112/55 BP Range: Systolic (24hrs), Av , Min:101 , Max:122 Diastolic (24hrs), Av, Min:53, Max:71 Physical Examination: General: Awake, alert, no acute distress HEENT: NC/AT/ MMM Chest: Faint rales at bases Cardiac: S1 S2 Abdomen: Soft, non-tender, Neuro: No facial droop, No Asterixis SKIN: No rashes, good skin turgor. Extremities: No edema, no cyanosis Labs: Recent Labs 01/30/20 0916 01/31/20 0408 02/01/20 0335 WBC 12.5* 8.3 -- RBC 3.85* 3.55* -- HGB 10.2* 9.3* 10.2* HCT 35.9* 33.4* 34.7* MCV 93.2 94.1 -- MCH 26.5 26.2 -- MCHC 28.4* 27.8* -- PLT 136 133 -- MPV 12.0 12.3 -- BMP: Recent Labs 01/30/20 1338 01/31/20 0407 02/01/20 0335 NA 135 135 141 K 5.2 3.7 4.3 CL 96* 93* 95* CO2 29 31 38* BUN 37* 41* 34* CREATININE 2.1* 1.7* 1.1 GLUCOSE 164* 135* 103 CALCIUM 9.3 9.0 9.2 Phosphorus: No results for input(s): PHOS in the last 72 hours. Magnesium: Recent Labs 01/30/20 0916 01/31/20 0407 02/01/20 0335 MG 2.0 2.0 1.7 Albumin: Recent Labs 01/30/20 0916 01/31/20 0407 LABALBU 3.7 3.4* BNP: No results found for: BNP HOLLAND: No results found for: HOLLAND SPEP: Lab Results Component Value Date PROT 6.6 01/31/2020 UPEP: No results found for: LABPE C3: No results found for: C3 C4: Lab Results Component Value Date C4 25 01/31/2020 MPO ANCA: No results found for: MPO PR3 ANCA: No results found for: PR3 Anti-GBM: No results found for: GBMABIGG Hep BsAg: Lab Results Component Value Date HEPBSAG Negative 01/31/2020 Hep C AB: Lab Results Component Value Date HEPCAB Negative 01/31/2020 Urinalysis/Chemistries: Lab Results Component Value Date NITRU NEGATIVE 01/30/2020 COLORU DARK YELLOW 01/30/2020 PHUR 5.0 01/30/2020 LABCAST >15 HYALINE 01/30/2020 LABCAST 0-4 C.GRAN 01/30/2020 WBCUA 15-25 01/30/2020 RBCUA > 200 01/30/2020 MUCUS NOT REPORTED 08/26/2019 TRICHOMONAS NOT REPORTED 08/26/2019 YEAST NONE SEEN 01/30/2020 BACTERIA NONE SEEN 01/30/2020 SPECGRAV 1.016 01/30/2020 LEUKOCYTESUR MODERATE 01/30/2020 UROBILINOGEN 0.2 01/30/2020 BILIRUBINUR NEGATIVE 01/30/2020 BLOODU LARGE 01/30/2020 GLUCOSEU NEGATIVE 08/26/2019 KETUA NEGATIVE 01/30/2020 AMORPHOUS NOT REPORTED 08/26/2019 Urine Sodium: No results found for: SHELDON Urine Potassium: No results found for: KUR Urine Chloride: No results found for: CLUR Urine Osmolarity: No results found for: OSMOU Urine Protein: No components found for: TOTALPROTEIN, URINE Urine Creatinine: No results found for: LABCREA Urine Eosinophils: No components found for: UEOS Impression and Plan: 1. LIBERTY: prerenal from renal hypoperfusion from hypotension + cardiorenal syndrome, improving -volume status improving. Serum bicarb increasing likely due to some contraction alkalosis from diuretics, will resume her home diamox and reduce lasix to 40 mg BID -UA with some hematuria, proteinuria < 1 gram, serologies sent 2. Acid/Base: elevated bicarb likely some contraction from diuretics, see above 3. S/p hyperkalemia 4. Hypotension better on Midodrine 5. Pulmonary edema 6. Diastolic CHF 7. Severe 8. Anemia 9. COPD on Home O2 Please don't hesitate to call with any questions. * Gaby Denson - 02/01/2020 11:00 AM EDT [facility] INPATIENT PHYSICAL THERAPY DAILY NOTE [facility] CCU-STEPDOWN 3B - 3B-36/036-A Time In: 745 Time Out: 08 Timed Code Treatment Minutes: 25 Minutes Minutes: 25 Date: 02/01/2020 Patient Name: Samreen Dawson, Gender: female : 1955 (64 y.o.) Referring Practitioner: Kim Gold MD Diagnosis: shortness of breath Additional Pertinent Hx: Per H&P, The patient is a 64 y.o.female with PMH of severe aortic stenosis managed by Dr. Brumfield, Cardiology, CAD treated with medical management, chronic systolic CHF, chronic respiratory failure with hypoxia ( recently on 3-4L L O2), who was seen in the ED at [facility] with progressively worsening SOB since discharge on January 26. She also mentioned an intermittent productive cough and nausea. She also mentioned associated moderate substernal chest pain. She denied vomiting, fevers, chills, abdominal pain, problems urinating, headache or peripheral neuropathy. She was discharged from [facility] on 01/26 after a diagnosis of acute on chronic systolic CHF and TAVR was planned then, however the patient had further workup for a GI bleed, as well as acute respiratory failure related to heart failure and the TAVR was postponed. At [place], the patient required Bipap. Labs were otherwise signficant for WBC to 17,400; Hgb 11.0, troponin 0.139, Na 133, K 5.2, AST 41, T bili 1.9, Cr 2.02 with setCXR showed moderate to severe pulmonary edema. She was treated with Lasix, morphine and Bipap and transferred to [facility] for further evaluation. Review of her chart shows that cardiac catheterization in December 2018 showed nonobstructive 3 vessel-Cad with 50% mildRCA stenosis and 50% ramus stenosis, mild disease in LAD, moderate to severe pulmonary hypretension, severe aortic stenosis. Cardiac cath in August 2019 showed mild to moderate single vessel disease involving the RCA and this was treated with medical therapy. Her last echo on 01/20/2020 showed an EF of 35% with severe inferolateral wall hypokinesis and mild to moderate LVH with critical aortic stenosis and an aortic valve of 0.5 cm^2, trace aortic regurgitation, tract TR and trace MR. Recent CTA of the chest on 01/19 showed diffuse ground-glass opacity, diffuse interstitial prominence, bibasilarparenchymal opacities and small bilateral effusions, right greater than left with no evidence for pulmonary embolism. The patient was admitted as a direct admit for further evaluation. The nurseRaymond mentioned that if the patient is removed from Bipap, her O2 sats drop to the 70s. A astorga catheterwas inserted at outside facility to monitor Is and Os. On 5L O2 this date. Prior Level of Function: Lives With: Spouse(fiance) Type of Home: Apartment Home Layout: One level Home Access: Level entry Home Equipment: Rolling walker(None used prior) Bathroom Shower/Tub: Tub/Shower unit, Shower chair with back Bathroom Toilet: Standard Bathroom Equipment: Hand-held shower Bathroom Accessibility: Accessible ADL Assistance: Independent Homemaking Assistance: Independent Homemaking Responsibilities: Yes Ambulation Assistance: Independent Transfer Assistance: Independent Active Telephone Betting Clerk: Yes Restrictions/Precautions: Restrictions/Precautions: General Precautions, Fall Risk Position Activity Restriction Other position/activity restrictions: 5 L O2 NC (at baseline pt wears 2-3 Liters at night, and daytime prn) SUBJECTIVE: pt up in chair on arrival resp therapy present reported that they just took her off bipap and on 5L o2, For walking she ok'd 6L since our tank doesn't go to 5 and did monitor sats throughout session she was above 95% however she did get SOB after she sat back down from walk PAIN: 0/10: OBJECTIVE: Bed Mobility: Not Tested Transfers: Sit to Stand: Supervision Stand to Sit:Supervision Ambulation: Stand By Assistance Distance: 220x1 Surface: Level Tile Device:No Device Gait Deviations: Slow deja and noted last 50 feet she was more fatigued and demonstrated a path deviation, therapist did manage her O2 tank but in room she was aware of her line, pt on 6L during gait, once sitting down pt got SOB and cues given for deep breathing Exercise: Patient was guided in 1 set(s) 10 reps of exercise to both lower extremities. Ankle pumps, Glut sets, Heelslides, Short arc quads and Hip abduction/adduction. Exercises were completed for increased independence with functional mobility. Functional Outcome Measures: Completed AM-[facility] Inpatient Mobility Raw Score : 18 AM-[facility] Inpatient T-Scale Score : 43.63 ASSESSMENT: Assessment: Patient progressing toward established goals. and pt tolerated increased walking distance this date and O2 sats were WNL she did require cues for deep breathing following walk Activity Tolerance: Patient tolerance of treatment: fair. Equipment Recommendations:Equipment Needed: No Discharge Recommendations: Home with Home health PT Plan: Times per week: 4-5xGM Current Treatment Recommendations: Strengthening, Balance Training, Transfer Training, Functional Mobility Training, Gait Training, Endurance Training, Home Exercise Program, Safety Education & Training, Patient/Caregiver Education & Training Patient Education Patient Education: Plan of Care Goals: Patient goals : to return home with fiance Short term goals Time Frame for Short term goals: by discharge Short term goal 1: Pt to perform bed mobility with supervision to improve ease of getting in and out of bed. Short term goal 2: Pt to perform sit<>stand with mod I to improve ease of transfers. Short term goal 3: Pt to ambulate >150 ft without an AD at supervision to improe ability to navigate within the home and community. MCC goals Time Frame for emt intermediate goals : N/A secondary to short ELOS Following session, patient left in safe position with all fall risk precautions in place. * Renea Alba PA-C - 02/01/2020 10:12 AM EDT Cardiology Progress Note Patient: Samreen Dawson Date of : 1955 Acct: [id number] Admit Date: 01/30/2020 Primary Used Car Make Ready Mechanic: Ritchie Brumfield MD Seen by dr orantes Note per dr orantes Reason for Consultation: Shortness of breath History Of Present Illness: 64 y.o. pleasant female with history of PAF, severe aortic stenosis mean gradient of 49 mm Hg, Diastolic HF, heavily calcified coronary arteries who presented to the hospital with complaints of SOB on exertion CT chest showed ground glass opacities with diffuse interstitial prominence consistent with Acute CHF. Patient was scheduled for TAVR but cancelled due to acute hospitalization. Subjective (Events in last 24 hours): Pt awake and alert. NAD. No cp. Sob improved but not back to baseline. On 5 L/min O2. Has chronic orthopnea. +VERA. No edema Net I/o -2.4 L Objective: BP (!) 101/55 Pulse 65 Temp 98.1 F (36.7 C) (Oral) Resp 20 Ht 5' 6 (1.676 m) Wt 226 lb 1.6 oz (102.6 kg) SpO2 100% BMI 36.49 kg/m TELEMETRY: nsr, not further NSVT Physical Exam: General Appearance: alert and oriented to person, place and time, in no acute distress Cardiovascular: normal rate, regular rhythm, normal S1 and S2, +murmur Pulmonary/Chest: bibasilar crackles Abdomen: soft, non-tender, non-distended, normal bowel sounds, no masses Extremities: no cyanosis, clubbing or edema, pulse Skin: warm and dry, no rash or erythema Head: normocephalic and atraumatic Eyes: pupils equal, round, and reactive to light Neck: supple and non-tender without mass, no thyromegaly Musculoskeletal: normal range of motion, no joint swelling, deformity or tenderness Neurological: alert, oriented, normal speech, no focal findings or movement disorder noted Medications: metoprolol tartrate 12.5 mg Oral BID docusate sodium 100 mg Oral Daily polyethylene glycol 17 g Oral Daily sodium chloride flush 10 mL Intravenous 2 times per day [Held by provider] enoxaparin 40 mg Subcutaneous Daily aspirin 81 mg Oral Daily FLUoxetine 20 mg Oral Daily atorvastatin 80 mg Oral Nightly tiotropium 2 puff Inhalation Daily pantoprazole 40 mg Oral BID AC magnesium oxide 400 mg Oral Daily [Held by provider] acetaZOLAMIDE 250 mg Oral Once per day on Mon Sofia insulin lispro 0-12 Units Subcutaneous TID WC insulin lispro 0-6 Units Subcutaneous Nightly midodrine 10 mg Oral TID WC furosemide 80 mg Intravenous BID dextrose sodium chloride flush, 10 mL, PRN acetaminophen, 650 mg, Q6H PRN Or acetaminophen, 650 mg, Q6H PRN promethazine, 12.5 mg, Q6H PRN Or ondansetron, 4 mg, Q6H PRN potassium chloride, 40 mEq, PRN Or potassium alternative oral replacement, 40 mEq, PRN Or potassium chloride, 10 mEq, PRN potassium chloride, 10 mEq, PRN magnesium sulfate, 2 g, PRN albuterol, 2.5 mg, Q6H PRN albuterol sulfate HFA, 2 puff, Q6H PRN glucose, 15 g, PRN dextrose, 12.5 g, PRN glucagon (rDNA), 1 mg, PRN dextrose, 100 mL/hr, PRN ipratropium-albuterol, 1 ampule, Q4H PRN Lab Data: Cardiac Enzymes: Recent Labs 01/30/20 1338 CKTOTAL 71 CBC: Lab Results Component Value Date WBC 8.3 01/31/2020 RBC 3.55 01/31/2020 RBC 4.68 10/16/2011 HGB 10.2 02/01/2020 HCT 34.7 02/01/2020 PLT 133 01/31/2020 CMP: Lab Results Component Value Date NA 141 02/01/2020 K 4.3 02/01/2020 CL 95 02/01/2020 CO2 38 02/01/2020 BUN 34 02/01/2020 CREATININE 1.1 02/01/2020 GFRAA >60 01/17/2020 LABGLOM 50 02/01/2020 GLUCOSE 103 02/01/2020 GLUCOSE 86 10/16/2011 CALCIUM 9.2 02/01/2020 Hepatic Function Panel: Lab Results Component Value Date ALKPHOS 61 01/31/2020 ALT 42 01/31/2020 AST 39 01/31/2020 PROT 6.6 01/31/2020 BILITOT 0.9 01/31/2020 BILIDIR 0.4 01/31/2020 LABALBU 3.4 01/31/2020 LABALBU 4.4 10/16/2011 Magnesium: Lab Results Component Value Date MG 1.7 02/01/2020 MG 2.0 10/16/2011 PT/INR: Lab Results Component Value Date PROTIME 10.6 10/16/2011 INR 1.19 01/25/2020 HgBA1c: Lab Results Component Value Date LABA1C 4.9 01/30/2020 FLP: Lab Results Component Value Date TRIG 107 12/12/2019 HDL 37 12/12/2019 LDLCALC 77 12/12/2019 TSH: Lab Results Component Value Date TSH 1.96 08/26/2019 Assessment: Acute on chronic hypoxemic resp failure - on 5 Lmin O2, normally on 3 L/min O2 at home Acute on chronic diastolic CHF Ef >55 per ARIA 09/01/19 Severe S/p Hyperkalemia LIBERTY/CKD Hx PAF Hx PPM Hx nonobstructive CAD per cath 08/2019 Hx HTN - midodrine started this admission Hx iron deficiency Anemia Hx GIB Hx COPD Hx CVA [id number] Plan: Daily I/o and weights 2 liter fluid restriction and 2gm sodium diet Keep mag >2 and K >4 Diuresis per nephro Avoid nitrates Cont statin/asa/BB Pt not on OAC by primary cardiology prior to admission gomez [facility] following to determine timing of TAVR - will need recs from GI on OAC * Levi Howard MD - 02/01/2020 9:19 AM EDT PROGRESS NOTE Patient: Samreen Dawson Unit/Bed:3B-36/036-A Date of : 1955 Acct: [id number] PCP: MANJU PRESTON Date of Admission: 01/30/2020 Assessment/Plan: Acute on chronic hypoxic/hypercapnic respiratory failure secondary to CHF exacerbation and severe aortic stenosis, improving Patient normally wears 3 L/min O2 at home Was placed on continuous BiPAP on admission, now on 5 L/min O2 ABG on arrival showed pH of 7.35, PCO2 56, PO2 80, bicarbonate 31 (of note in December 2019, patient also had respiratory acidosis) Please see below for CHF exacerbation and severe aortic stenosis management Home oxygen evaluation prior discharge Acute on chronic HFpEF 08/2019 ARIA showing EF of more than 55% proBNP 23,422 on arrival, worse compared to previous She was initially seen at [place], CXR showed moderate to severe pulmonary edema. She was treated with Lasix, morphine and Bipap and transferred to [facility] for further evaluation. She was started on Lasix 40 mg IV daily on admission, increased to 80 mg IV BID per cards 01/31 per nephrology decrease Lasix to 40 twice daily, restart home Diamox twice weekly Cardiology and nephrology on board. Appreciate specialists input Daily weights, I/Os, fluid and salt restrictions Critical/severe aortic stenosis Cardiology on board. Appreciate cardiology input. Per cardiology ALEX Meier note on 01/30, Will need to f/up dr areli berry for reschedule of TAVR - will need OAC recs from GI, Gomez RN that works with [facility] will discuss with pt at 3pm of next step LIBERTY, prerenal from hypoperfusion secondary to hypotension and cardiorenal syndrome, improving Cr 2.0 on arrival, baseline creatinine looks like between 0.8-1.1. No history of CKD Nephrology on board. Appreciate nephrology input. Urine lytes appear prerenal from renal hypoperfusion from hypotension and cardiorenal syndrome, improving with diuresis 01/30 renal US showing probable bilateral cysts, nondistended bladder NSVT Occurred around 0608 in the morning of 01/31/2020 Patient reports intermittent palpitations this morning Cardiology recommend to stop Cardizem and restart beta-jalen Keep magnesium 2.0 and above and potassium 4.0 and above Continue telemetry Elevated troponin, likely demand ischemia secondary to CHF exacerbation, rule out ACS Of note, patient also had elevated troponin last admission, and per cardiology, likely demand ischemia secondary to GI bleed. Troponin down trending EKG showed NSR, RBBB Cardiology on board. Appreciate cardiology input. Hyperkalemia, resolved Patient received Lasix, Kayexalate and insulin BMP in a.m. Mild hypomagnesemia, resolved cont magnesium oxide oral Check magnesium level in a.m. History of CAD S/p pacemaker Continue aspirin, Lipitor and BB Continue telemetry Hx of COPD Spiriva and albuterol q6h prn Hx of DM type II, well controlled Hgb A1c 6.3% (12/12/2019) Continue Accu-Chek, sliding scale insulin, hypoglycemia protocol History of hypotension, stable History of hypertension with hypotension Continue midodrine Continue beta jalen per cardiology Vital signs per protocol Chronic normocytic anemia, stable Hgb stable. Continue to monitor History of recent upper GI bleed/ PUD Hx of GERD last EGD showed healing gastric erosions Protonix bid Hyperlipidemia Continue atorvastatin History of CVA Continue aspirin and Lipitor Elevated LFTs, likely related to hepatic congestion in the setting of congestive heart failure, resolved Leukocytosis, likely reactive secondary to CHF exacerbation, resolved Chief Complaint: Shortness of breath Hospital Course: The patient is a 64 y.o.female with PMH of severe aortic stenosis managed by Dr. Brumfield, Cardiology,CAD treated with medical management, chronic systolic CHF, chronic respiratory failure with hypoxia( recently on 3-4L L O2), who was seen in the ED at [facility] with progressively worsening SOB since discharge on January 26. She also mentioned an intermittent productive cough and nausea. She also mentioned associated moderate substernal chest pain. She denied vomiting, fevers, chills, abdominal pain, problems urinating, headache or peripheral neuropathy. She was discharged from [facility] on 01/26 after a diagnosis of acute on chronic systolic CHF and TAVR was planned then, however the patient had further workup for a GI bleed, as well as acute respiratory failure related to heart failure and the TAVR was postponed. At [place], the patient required Bipap. Labs were otherwise signficant for WBC to 17,400; Hgb 11.0, troponin 0.139, Na 133, K 5.2, AST 41, T bili 1.9, Cr 2.02 with setCXR showed moderate to severe pulmonary edema. She was treated with Lasix, morphine and Bipap and t ransferred to [facility] for further evaluation. Review of her chart shows that cardiac catheterization in December 2018 showed nonobstructive 3 vessel-Cad with 50% mild RCA stenosis and 50% ramus stenosis, mild disease in LAD, moderate to severe pulmonary hypretension, severe aortic stenosis. Cardiac cathin August 2019 showed mild to moderate single vessel disease involving the RCA and this was treated with medical therapy. Her last echo on 01/20/2020 showed an EF of 35% with severe inferolateral wall hypokinesis and mild to moderate LVH with critical aortic stenosis and an aortic valve of 0.5 cm^2, trace aortic regurgitation, tract TR and trace MR. Recent CTA of the chest on 01/19 showed diffuse ground-glass opacity, diffuse interstitial prominence, bibasilar parenchymal opacities and small bilateral effusions, right greater than left with no evidence for pulmonary embolism. The patient was admitted as a direct admit for further evaluation. The nurse, Raymond mentioned that if the patient is removed from Bipap, her O2 sats drop to the 70s. A astorga catheter was inserted at outside facility to monitor Is and Os. Cardiology was consulted. Nephrology also consulted for LIBERTY. Subjective: Patient seen and evaluated. Patient states that overall she is doing well. States that her breathing is much improved since admission, however not quite at her baseline. Patient endorsed frustration over her inability to get her TAVR done. States she has been working with Gomez to get it scheduled and is hopeful to talk to her or Dr. Brumfield later today. Denies any chest pain, worsening of her shortness of breath, abdominal pain, nausea, vomiting, diarrhea, leg swelling. Medications: Reviewed Infusion Medications dextrose Scheduled Medications metoprolol tartrate 12.5 mg Oral BID docusate sodium 100 mg Oral Daily polyethylene glycol 17 g Oral Daily sodium chloride flush 10 mL Intravenous 2 times per day [Held by provider] enoxaparin 40 mg Subcutaneous Daily aspirin 81 mg Oral Daily FLUoxetine 20 mg Oral Daily atorvastatin 80 mg Oral Nightly tiotropium 2 puff Inhalation Daily pantoprazole 40 mg Oral BID AC magnesium oxide 400 mg Oral Daily [Held by provider] acetaZOLAMIDE 250 mg Oral Once per day on Thu Sofia insulin lispro 0-12 Units Subcutaneous TID WC insulin lispro 0-6 Units Subcutaneous Nightly midodrine 10 mg Oral TID WC furosemide 80 mg Intravenous BID PRN Meds: sodium chloride flush, acetaminophen OR acetaminophen, promethazine OR ondansetron, potassium chloride OR potassium alternative oral replacement OR potassium chloride, potassium chloride, magnesium sulfate, albuterol, albuterol sulfate HFA, glucose, dextrose, glucagon (rDNA), dextrose, ipratropium-albuterol Intake/Output Summary (Last 24 hours) at 02/01/2020918 Last data filed at 02/01/202019 Gross per 24 hour Intake 2425 ml Output 3500 ml Net -1075 ml Diet: DIET CARB CONTROL; No Added Salt (3-4 GM); Daily Fluid Restriction: 1800 ml Exam: BP (!) 108/56 Pulse 59 Temp 97.9 F (36.6 C) (Axillary) Resp 21 Ht 5' 6 (1.676 m) Wt 226 lb 1.6 oz (102.6 kg) SpO2 95% BMI 36.49 kg/m General appearance: No apparent distress, appears stated age and cooperative. Sitting in chair. HEENT: Pupils equal, round, and reactive to light. Conjunctivae/corneas clear. Neck: Supple, with full range of motion. No jugular venous distention. Trachea midline. Respiratory: Normal respiratory effort on 5 L supplemental O2 via nasal cannula. Clear to auscultation, bilaterally without Rales/Wheezes/Rhonchi. Transmitted upper respiratory sounds Cardiovascular: Regular rate and rhythm with normal S1/S2 without rubs or gallops. [place] systolic ejection murmur best heard over the aortic area. Abdomen: Soft, non-tender, non-distended with normal bowel sounds. Musculoskeletal: passive and active ROM x 4 extremities. Skin: Skin color, texture, turgor normal. No rashes or lesions. Neurologic: Neurovascularly intact without any focal sensory/motor deficits. Cranial nerves: II-XIIintact, grossly non-focal. Psychiatric: Alert and oriented, thought content appropriate, normal insight Capillary Refill: Brisk,< 3 seconds Peripheral Pulses: +2 palpable, equal bilaterally Labs: Recent Labs 01/30/20 0916 01/31/20 0408 02/01/20 0335 WBC 12.5* 8.3 -- HGB 10.2* 9.3* 10.2* HCT 35.9* 33.4* 34.7* PLT 136 133 -- Recent Labs 01/30/20 1338 01/31/20 0407 02/01/20 0335 NA 135 135 141 K 5.2 3.7 4.3 CL 96* 93* 95* CO2 29 31 38* BUN 37* 41* 34* CREATININE 2.1* 1.7* 1.1 CALCIUM 9.3 9.0 9.2 Recent Labs 01/30/20 0916 01/31/20 0407 AST 56* 39 ALT 46 42 BILIDIR 0.3 0.4* BILITOT 0.9 0.9 ALKPHOS 70 61 No results for input(s): INR in the last 72 hours. Recent Labs 01/30/20 1338 CKTOTAL 71 Urinalysis: Lab Results Component Value Date NITRU NEGATIVE 01/30/2020 WBCUA 15-25 01/30/2020 BACTERIA NONE SEEN 01/30/2020 RBCUA > 200 01/30/2020 BLOODU LARGE 01/30/2020 SPECGRAV 1.016 01/30/2020 GLUCOSEU NEGATIVE 08/26/2019 Radiology: XR CHEST PORTABLE Final Result 1. Moderate stable cardiomegaly with pulmonary vascular congestion suspicious for congestive heart failure. 2. Pulmonary edema. 3. Small bilateral pleural effusions with adjacent atelectasis/infiltrate. This report has been created using voice recognition software. It may contain minor errors which are inherent in voice recognition technology. Final report electronically signed by Dr. Federico Allen on 01/31/2020 3:43 PM US RENAL COMPLETE Final Result 1. Probable bilateral renal cysts. 2. Astorga catheter in a nondistended urinary bladder. Final report electronically signed by Dr. Federico Allen on 01/31/2020 8:39 AM XR CHEST PORTABLE Final Result 1. Cardiomegaly, status post pacemaker placement. 2. Increased pulmonary vascularity suggestive of congestive heart failure versus fluid overload, more prominent than on previous study dated 25 January 2020. 3. Increased density in the right and left lower lobes. This report has been created using voice recognition software. It may contain minor errors which are inherent in voice recognition technology. Final report electronically signed by DR VICKY WATSON on 01/30/2020 11:19 AM Diet: DIET CARB CONTROL; No Added Salt (3-4 GM); Daily Fluid Restriction: 1800 ml DVT prophylaxis: [] Lovenox [] SCDs [] SQ Heparin [] Encourage ambulation [] Already on Anticoagulation Disposition: [] Home [] TCU [] Rehab [] Psych [] SNF [] [facility] [] Other- Code Status: Limited PT/OT Eval Status: Associated attestation - Ziyad Mallory MD - 02/01/2020 4:20 PM EDT Attending Supervising Physician s Attestation Statement I saw and evaluated the patient independently. I discussed the findings and plans with resident physician (Dr. Levi Howard MD.) and agree as documented in his note with additional note: --I agree with assessment and plan of the resident. --Patient need TAVR for severe aortic stenosis, cardiology on the case. --CHF exacerbation: Continue CHF exacerbation protocol with restricting sodium, daily weights, fluid restriction and diuretics. --We will give voiding trials for the Astorga today. --Patient continued to decline home health services. --Currently on 10 L nasal cannula oxygen, wheeziness appreciated bilaterally, SARA 4/6 best heard atthe right second intercostal space. Continue LAMA, AUTUMN, albuterol nebulizer as needed, monitor closely. Plan discussed with the patient and nurse, patient verbalized understanding and was agreeable with the plan. * Gilmer Rogers - 01/31/2020 1:32 PM EDT Pt resting in chair comfortably. 100% lunch. No changes to previous assessment. Call light in reach, will cont. to monitor. * Sammie Gonsalez OT - 01/31/2020 12:52 PM EDT [facility] INPATIENT OCCUPATIONAL THERAPY STRZ CCU-STEPDOWN 3B EVALUATION Time: Time In: 924 Time Out: 942 Timed Code Treatment Minutes: 10 Minutes Minutes: 18 Date: 01/31/2020 Patient Name: Samreen Dawson, Gender: female : 1955 (64 y.o.) Referring Practitioner: Kim Gold MD Diagnosis: Shortness of Breath Additional Pertinent Hx: Per EMR, The patient is a 64 y.o.female with PMH of severe aortic stenosis managed by Dr. Brumfield, Cardiology, CAD treated with medical management, chronic systolic CHF, chronic respiratory failure with hypoxia ( recently on 3-4L L O2), who was seen in the ED at [facility] with progressively worsening SOB since discharge on January 26. She also mentioned an intermittent productive cough and nausea. She also mentioned associated moderate substernal chest pain. She denied vomiting, fevers, chills, abdominal pain, problems urinating, headache or peripheral neuropathy. She was discharged from [facility] on 01/26 after a diagnosis of acute on chronic systolic CHF and TAVR was planned then, however the patient had further workup for a GI bleed, as well as acute respiratory failure related to heart failure and the TAVR was postponed. At [place], the patient required Bipap. Labs were otherwise signficant for WBC to 17,400; Hgb 11.0, troponin 0.139, Na 133, K 5.2, AST 41, T bili 1.9, Cr 2.02 with setCXR showed moderate to severe pulmonary edema. She was treated with Lasix, morphine and Bipap and transferred to [facility] for further evaluation. Review of her chart shows that cardiac catheterization in December 2018 showed nonobstructive 3 vessel-Cad with 50% mild RCAstenosis and 50% ramus stenosis, mild disease in LAD, moderate to severe pulmonary hypretension, severe aortic stenosis. Cardiac cath in August 2019 showed mild to moderate single vessel disease involving the RCA and this was treated with medical therapy. Her last echo on 01/20/2020 showed an EF of 35% with severe inferolateral wall hypokinesis and mild to moderate LVH with critical aortic stenosisand an aortic valve of 0.5 cm^2, trace aortic regurgitation, tract TR and trace MR. Recent CTA of the chest on 01/19 showed diffuse ground-glass opacity, diffuse interstitial prominence, bibasilar parenchymal opacities and small bilateral effusions, right greater than left with no evidence for pulmonary embolism. The patient was admitted as a direct admit for further evaluation. The nurse, Raymond mentioned that if the patient is removed from Bipap, her O2 sats drop to the 70s. A astorga catheter wasinserted at outside facility to monitor Is and Os. Restrictions/Precautions: Restrictions/Precautions: General Precautions, Fall Risk Position Activity Restriction Other position/activity restrictions: 5 L O2 NC (at baseline pt wears 2-3 Liters at night, and daytime prn) Subjective Chart Reviewed: Yes, Progress Notes, History and Physical, Orders Patient assessed for rehabilitation services?: Yes Subjective: RN okayed OT session. Upon arrival patient was sitting in recliner. Pt was agreeable toOT session. session limited d/t arrival of breakfast. Pain: Pain Assessment Patient Currently in Pain: Denies Social/Functional History: Lives With: Spouse(fiance) Type of Home: Apartment Home Layout: One level Home Access: Level entry Home Equipment: Rolling walker(None used prior) Bathroom Shower/Tub: Tub/Shower unit, Shower chair with back Bathroom Toilet: Standard Bathroom Equipment: Hand-held shower Bathroom Accessibility: Accessible ADL Assistance: Independent Homemaking Assistance: Independent Homemaking Responsibilities: Yes Ambulation Assistance: Independent Transfer Assistance: Independent Active Telephone Betting Clerk: Yes Occupation: Retired VISION:WFL HEARING: WFL COGNITION: WFL RANGE OF MOTION: Bilateral Upper Extremity: WFL STRENGTH: Bilateral Upper Extremity: WFL ADL: No ADL's completed this session.. BALANCE: Sitting Balance: Stand By Assistance. Standing Balance: Contact Guard Assistance. BED MOBILITY: Not Tested TRANSFERS: Sit to Stand: Contact Guard Assistance. Stand to Sit: Contact Guard Assistance. FUNCTIONAL MOBILITY: Assistive Device: None Assist Level: Contact Guard Assistance. Distance: To and from bathroom Slow pace, No LOB, cues for O2 tubing safety. Activity Tolerance: Patient tolerance of treatment: fair. Assessment: Assessment: This 64 year old female requires skilled OT intervention to increase indep and safety with all self cares, transfers, mobility, and IADLs while demonstrating EC techniques. Performance deficits / Impairments: Decreased ADL status, Decreased endurance, Decreased high-levelIADLs, Decreased strength Prognosis: Good REQUIRES OT FOLLOW UP: Yes Treatment Initiated: Treatment and education initiated within context of evaluation. Evaluation time included review of current medical information, gathering information related to past medical, social and functional history, completion of standardized testing, formal and informal observation of tasks, assessment of data and development of plan of care and goals. Treatment time included skilled education and facilitation of tasks to increase safety and independence with ADL's for improved functional independence and quality of life. Discharge Recommendations: Continue to assess pending progress, Home with Home health OT Patient Education: OT Education: OT Role, Plan of Care, Precautions, Transfer Training, Energy Conservation Equipment Recommendations: Equipment Needed: No Plan: Times per week: 5x Current Treatment Recommendations: Strengthening, Endurance Training, Functional Mobility Training,Safety Education & Training, Equipment Evaluation, Education, & procurement, Self-Care / ADL, Home Management Training, Patient/Caregiver Education & Training. See long-term goal time frame for expected duration of plan of care. If no long-term goals established, a short length of stay is anticipated. Goals: Patient goals : Go Home Short term goals Time Frame for Short term goals: Until discharge Short term goal 1: Pt will complete BUE light resistive exercises with min vcs for technique to increase indep and safety with all self cares. Short term goal 2: Pt will complete standing tolerance x 4 minutes with 2 UE release and S to increase indep and safety with all grooming. Short term goal 3: Pt will complete functional mobility to/from BR and HH distances with S to increase indep and safety with all toileting. Short term goal 4: Pt will complete LB dressing with LHAE PRN and min vcs for technique to increaseindep and safety with all self cares. Short term goal 5: Pt will verbalize 3 EC techniques Indep to implement in ADL routine. Following session, patient left in safe position with all fall risk precautions in place. * Jessa Buchanan MD - 01/31/2020 11:53 AM EDT Hospitalist Progress Note Patient: Samreen Trammelliffe Unit/Bed:[facility]36/036-A Date of : 1955 Acct: [id number] PCP: MANJU PRESTON Date of Admission: 01/30/2020 Chief Complaint: Shortness of breath Hospital Course: Per H/P: The patient is a 64 y.o.female with PMH of severe aortic stenosis managed by Dr. Brumfield, Cardiology, CAD treated with medical management, chronic systolic CHF, chronic respiratory failure with hypoxia ( recently on 3-4L L O2), who was seen in the ED at [facility] with progressively worseningSOB since discharge on January 26. She also mentioned an intermittent productive cough and nausea. She also mentioned associated moderate substernal chest pain. She denied vomiting, fevers, chills, abdominal pain, problems urinating, headache or peripheral neuropathy. She was discharged from [facility] on 01/26 after a diagnosis of acute on chronic systolic CHF and TAVR was planned then, however thepatient had further workup for a GI bleed, as well as acute respiratory failure related to heart failure and the TAVR was postponed. At [place], the patient required Bipap. Labs were otherwise signficant for WBC to 17,400; Hgb 11.0, troponin 0.139, Na 133, K 5.2, AST 41, T bili 1.9, Cr 2.02 with setCXR showed moderate to severe pulmonary edema. She was treated with Lasix, morphine and Bipap and t ransferred to [facility] for further evaluation. Review of her chart shows that cardiac catheterization in December 2018 showed nonobstructive 3 vessel-Cad with 50% mild RCA stenosis and 50% ramus stenosis, mild disease in LAD, moderate to severe pulmonary hypretension, severe aortic stenosis. Cardiac cathin August 2019 showed mild to moderate single vessel disease involving the RCA and this was treated with medical therapy. Her last echo on 01/20/2020 showed an EF of 35% with severe inferolateral wall hypokinesis and mild to moderate LVH with critical aortic stenosis and an aortic valve of 0.5 cm^2, trace aortic regurgitation, tract TR and trace MR. Recent CTA of the chest on 01/19 showed diffuse ground-glass opacity, diffuse interstitial prominence, bibasilar parenchymal opacities and small bilateral effusions, right greater than left with no evidence for pulmonary embolism. The patient was admitted as a direct admit for further evaluation. The nurse, Raymond mentioned that if the patient is removed from Bipap, her O2 sats drop to the 70s. A astorga catheter was inserted at outside facility to monitor Is and Os. Cardiology was consulted. Nephrology also consulted for LIBERTY. 01/31/2020: This morning around 0608 in the morning, patient had NSVT on the monitor Subjective: Patient seen and examined. Pt states she was doing fine the day she went home on 01/27/2020, then the following day, she noticed legs/feet swelling and started having sob and had substernal chest painat home. Pt reports that sob is about the same . Denies chest pain, cough, fever, chills, dizziness. She states she feels intermittent tachycardia. She states that her legs/feet swelling improved. Denies melena and rectal bleeding Medications: Reviewed Infusion Medications dextrose Scheduled Medications sodium chloride flush 10 mL Intravenous 2 times per day [Held by provider] enoxaparin 40 mg Subcutaneous Daily aspirin 81 mg Oral Daily FLUoxetine 20 mg Oral Daily atorvastatin 80 mg Oral Nightly tiotropium 2 puff Inhalation Daily dilTIAZem 240 mg Oral Daily pantoprazole 40 mg Oral BID AC magnesium oxide 400 mg Oral Daily [Held by provider] acetaZOLAMIDE 250 mg Oral Once per day on [place] insulin lispro 0-12 Units Subcutaneous TID WC insulin lispro 0-6 Units Subcutaneous Nightly midodrine 10 mg Oral TID WC furosemide 80 mg Intravenous BID PRN Meds: sodium chloride flush, acetaminophen OR acetaminophen, polyethylene glycol, promethazine OR ondansetron, potassium chloride OR potassium alternative oral replacement OR potassium chloride, potassium chloride, magnesium sulfate, albuterol, albuterol sulfate HFA, glucose, dex trose, glucagon (rDNA), dextrose, ipratropium-albuterol Intake/Output Summary (Last 24 hours) at 01/31/2020 1154 Last data filed at 01/31/2020 0922 Gross per 24 hour Intake 1020 ml Output 1800 ml Net -780 ml Diet: DIET CARB CONTROL; No Added Salt (3-4 GM) Exam: BP (!) 102/58 Pulse 69 Temp 97.8 F (36.6 C) (Oral) Resp 18 Ht 5' 6 (1.676 m) Wt 226 lb 1.6 oz (102.6 kg) SpO2 94% BMI 36.49 kg/m General appearance: alert, looks short of breath when talking HEENT: PERRLA, clear oral mucosa Chest: on 5 lpm O2 via NC, (+) crackles on both lower lung shaver, also on right mid lung field, nowheezing, no rhonchi CVS exam: normal rate, regular rhythm, normal S1, S2, (+) grade 3/6 systolic murmur on aortic area,no rubs, clicks or gallops. Abdominal exam: non-distended, NABS, soft, non-tender, no guarding, no masses or organomegaly. Neurological exam reveals alert, oriented, normal speech, no focal findings or movement disorder noted Exam of extremities: peripheral pulses normal, no pedal or leg edema, no clubbing or cyanosis Labs: Recent Labs 01/30/20 0916 01/31/20 0408 WBC 12.5* 8.3 HGB 10.2* 9.3* HCT 35.9* 33.4* PLT 136 133 Recent Labs 01/30/20 0916 01/30/20 1338 01/31/20 0407 NA 136 135 135 K 6.0* 5.2 3.7 CL 96* 96* 93* CO2 26 29 31 BUN 35* 37* 41* CREATININE 2.0* 2.1* 1.7* CALCIUM 9.4 9.3 9.0 Recent Labs 01/30/20 0916 01/31/20 0407 AST 56* 39 ALT 46 42 BILIDIR 0.3 0.4* BILITOT 0.9 0.9 ALKPHOS 70 61 No results for input(s): INR in the last 72 hours. Recent Labs 01/30/20 1338 CKTOTAL 71 Urinalysis: Lab Results Component Value Date NITRU NEGATIVE 01/30/2020 WBCUA 15-25 01/30/2020 BACTERIA NONE SEEN 01/30/2020 RBCUA > 200 01/30/2020 BLOODU LARGE 01/30/2020 SPECGRAV 1.016 01/30/2020 GLUCOSEU NEGATIVE 08/26/2019 Radiology: US RENAL COMPLETE Final Result 1. Probable bilateral renal cysts. 2. Astorga catheter in a nondistended urinary bladder. Final report electronically signed by Dr. Federico Allen on 01/31/2020 8:39 AM XR CHEST PORTABLE Final Result 1. Cardiomegaly, status post pacemaker placement. 2. Increased pulmonary vascularity suggestive of congestive heart failure versus fluid overload, more prominent than on previous study dated 25 January 2020. 3. Increased density in the right and left lower lobes. This report has been created using voice recognition software. It may contain minor errors which are inherent in voice recognition technology. Final report electronically signed by DR VICKY WATSON on 01/30/2020 11:19 AM XR CHEST PORTABLE (Results Pending) Assessment/Plan: Acute on chronic hypoxic/hypercapnic respiratory failure secondary to CHF exacerbation and severe aortic stenosis, improving -Patient normally wears 3 L/min O2 at home, was placed on continuous BiPAP on admission, now on 5 L/min O2 -ABG on arrival showed pH of 7.35, PCO2 56, PO2 80, bicarbonate 31 (of note in December 2019, patientsondra had respiratory acidosis), repeat ABG today improving. May change continuous BiPAP to as needed. -Please see below for CHF exacerbation and severe aortic stenosis management -Home oxygen evaluation prior discharge -Repeat chest x-ray today Acute on chronic HFpEF -EF of more than 55% per [facility] in August 2019 -proBNP 23,422 on arrival, worse compared to previous 1. -She was initially seen at [place], CXR showed moderate to severe pulmonary edema. She was treatedwith Lasix, morphine and Bipap and transferred to [facility] for further evaluation. -She was started on Lasix 40 mg IV daily on admission, cardiology recommend to increase to 80 mg IVtwice daily. Patient also received diarrheal on 01/30/2020. Cardiology and nephrology on board. Appreciate specialists input. -I/O: -700cc/24 hours -Daily weights, I/Os, fluid and salt restrictions Critical/severe aortic stenosis -Cardiology on board. Appreciate cardiology input. Per cardiology ALEX Meier note on 01/30, Will needto f/up dr areli berry for reschedule of TAVR - will need OAC recs from ZHANE dyer RN that works with [facility] will discuss with pt at 3pm of next step LIBERTY, prerenal from hypoperfusion secondary to hypotension and cardiorenal syndrome, improving -Renal thinning of 2.0 on arrival, baseline creatinine looks like between 0.8- 1.1. No history of CKD -BUN/serum crea ratio >20:1 -Nephrology on board. Appreciate nephrology input. -Nephrology ordered kidney work-up, pending NSVT -Occurred around 0608 in the morning of 01/31/2020 -Patient reports intermittent palpitations this morning -Cardiology recommend to stop Cardizem and restart beta-jalen -Potassium of 3.7 today, nephrology already ordered Klor-Con 20 mix p.o. x1 -Magnesium 2.0 -Keep magnesium 2.0 and above and potassium 4.0 and above -Continue telemetry Elevated troponin, likely demand ischemia secondary to CHF exacerbation, rule out ACS -Of note, patient also had elevated troponin last admission, and per cardiology, likely demand ischemia secondary to GI bleed. -Trend troponin -EKG showed NSR, RBBB -Patient denies chest pain today -Cardiology on board. Appreciate cardiology input. Hyperkalemia, resolved -Patient received Lasix, Kayexalate and insulin -BMP in a.m. Elevated LFTs, likely related to hepatic congestion in the setting of congestive heart failure, resolved Leukocytosis, likely reactive secondary to CHF exacerbation, resolved -Afebrile, denies cough Mild hypomagnesemia, resolved -cont magnesium oxide oral -Check magnesium level in a.m. History of CAD S/p pacemaker -Continue aspirin, Lipitor and BB -Continue telemetry Hx of COPD: on Spiriva and albuterol q6h prn Hx of DM type II: Hgb A1c 6.3% (12/12/2019). Continue Accu-Chek, sliding scale insulin History of hypotension, stable -BP stable -Continue midodrine -Vital signs per protocol Chronic normocytic anemia, stable: Hgb stable. Continue to monitor History of recent upper GI bleed/ PUD: last EGD showed healing gastric erosions: Protonix bid History of GERD: Continue PPI History of hypertension with hypotension: Restart beta-jalen per cardiology recommendation Hyperlipidemia: Continue atorvastatin History of CVA: Continue aspirin and Lipitor Anticipated Discharge in : pending Diet: DIET CARB CONTROL; No Added Salt (3-4 GM) DVT prophylaxis: [] Lovenox [x] SCDs [] SQ Heparin [] Encourage ambulation [] Already on Anticoagulation Disposition: [] Home [] TCU [] Rehab [] Psych [] SNF [] [facility] [x] Other-Plan as above Code Status: Limited * Dandre Colin, PT - 01/31/2020 11:48 AM EDT [facility] INPATIENT PHYSICAL THERAPY EVALUATION STRZ CCU-STEPDOWN 3B - 3B-36/036-A Time In: 1106 Time Out: 11:23 Time In: 11:28 Time Out: 11:40 Time In: 11:46 Time Out: 1148 Timed Code Treatment Minutes: 10 Minutes Minutes: 31 *Session interrupted by PA and physician visits. Date: 01/31/2020 Patient Name: Samreen Dawson, Gender: female : 1955 (64 y.o.) Referring Practitioner: Kim Gold MD Diagnosis: shortness of breath Additional Pertinent Hx: Per H&P, The patient is a 64 y.o.female with PMH of severe aortic stenosis managed by Dr. Brumfield, Cardiology, CAD treated with medical management, chronic systolic CHF, chronic respiratory failure with hypoxia ( recently on 3-4L L O2), who was seen in the ED at [facility] with progressively worsening SOB since discharge on January 26. She also mentioned an intermittent productive cough and nausea. She also mentioned associated moderate substernal chest pain. She denied vomiting, fevers, chills, abdominal pain, problems urinating, headache or peripheral neuropathy. She was discharged from [facility] on 01/26 after a diagnosis of acute on chronic systolic CHF and TAVR was planned then, however the patient had further workup for a GI bleed, as well as acute respiratory failure related to heart failure and the TAVR was postponed. At [place], the patient required Bipap. Labs were otherwise signficant for WBC to 17,400; Hgb 11.0, troponin 0.139, Na 133, K 5.2, AST 41, T bili 1.9, Cr 2.02 with setCXR showed moderate to severe pulmonary edema. She was treated with Lasix, morphine and Bipap and transferred to [facility] for further evaluation. Review of her chart shows that cardiac catheterization in December 2018 showed nonobstructive 3 vessel-Cad with 50% mildRCA stenosis and 50% ramus stenosis, mild disease in LAD, moderate to severe pulmonary hypretension, severe aortic stenosis. Cardiac cath in August 2019 showed mild to moderate single vessel disease involving the RCA and this was treated with medical therapy. Her last echo on 01/20/2020 showed an EF of 35% with severe inferolateral wall hypokinesis and mild to moderate LVH with critical aortic stenosis and an aortic valve of 0.5 cm^2, trace aortic regurgitation, tract TR and trace MR. Recent CTA of the chest on 01/19 showed diffuse ground-glass opacity, diffuse interstitial prominence, bibasilarparenchymal opacities and small bilateral effusions, right greater than left with no evidence for pulmonary embolism. The patient was admitted as a direct admit for further evaluation. The nurse, Raymond mentioned that if the patient is removed from Bipap, her O2 sats drop to the 70s. A astorga catheterwas inserted at outside facility to monitor Is and Os. On 5L O2 this date. Restrictions/Precautions: Restrictions/Precautions: General Precautions, Fall Risk Position Activity Restriction Other position/activity restrictions: 5 L O2 NC (at baseline pt wears 2-3 Liters at night, and daytime prn) Subjective: Chart Reviewed: Yes Patient assessed for rehabilitation services?: Yes Family / Caregiver Present: No Subjective: RN approved PT evaluation. Upon entry, pt sitting in bedside chair on 5L O2, pleasant and agreeable to participate in therapy. SpO2 monitored throughout session. Post session pt in bedside chair, all needs within reach. General: Overall Orientation Status: Within Functional Limits Follows Commands: Within Functional Limits Vision: Impaired Vision Exceptions: Wears glasses for reading Hearing: Within functional limits Pain: denies pain Social/Functional History: Lives With: Spouse(fiance) Type of Home: Apartment Home Layout: One level Home Access: Level entry Home Equipment: Rolling walker(None used prior) Bathroom Shower/Tub: Tub/Shower unit, Shower chair with back Bathroom Toilet: Standard Bathroom Equipment: Hand-held shower Bathroom Accessibility: Accessible ADL Assistance: Independent Homemaking Assistance: Independent Homemaking Responsibilities: Yes Ambulation Assistance: Independent Transfer Assistance: Independent Active Telephone Betting Clerk: Yes 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 Bending to adjust chair without LOB noted Bed Mobility: Not Tested Transfers: Sit to Stand: Stand By Assistance, Contact Guard Assistance, with increased time for completion, to/from chair with arms Stand to Sit:Stand By Assistance, Contact Guard Assistance, to/from chair with arms Ambulation: Contact Guard Assistance, with increased time for completion Distance: 80 ft x2 Surface: Level Tile Device:No Device Gait Deviations: Forward Flexed Posture, Decreased Step Length Bilaterally, Decreased Arm Swing, Decreased Gait Speed, Decreased Heel Strike Bilaterally, Wide Base of Support and good steadiness throughout ambulation trials.\ *Ambulation trials performed on 6L portable O2. SpO2 remained 92-94% throughout ambulation. Functional Outcome Measures: Completed AM-PAC Inpatient Mobility without Stair Climbing Raw Score : 15 AM-PAC Inpatient without Stair Climbing T-Scale Score : 43.03 ASSESSMENT: Activity Tolerance: Patient tolerance of treatment: good. Pt tolerated all mobility well. SpO2 remained 92-94% throughout mobility. Treatment Initiated: Treatment and education initiated within context of evaluation. Evaluation time included review of current medical information, gathering information related to past medical, social and functional history, completion of standardized testing, formal and informal observation of tasks, assessment of data and development of plan of care and goals. Treatment time included skilled education and facilitation of tasks to increase safety and independence with functional mobility forimproved independence and quality of life. Pt education provided regarding the importance of mobility during admission. Pt encouraged to ambulate 3x/day with staff and sit in bedside chair for all meals. Assessment: Body structures, Functions, Activity limitations: Decreased functional mobility , Decreased strength, Decreased endurance, Decreased balance Assessment: Pt presents with shortness of breath secondary to aortic stenosis. She demonstrates a decrease in baseline functional mobility when performing bed mobility, transfers, and ambulation. Sheis currently limited by respiratory status and is currently on 5L O2 via nasal canula. She will benefit from skilled PT services to promote increased endurance and independence with functional mobility for return to [facility] prior to discharge home. Prognosis: Good REQUIRES PT FOLLOW UP: Yes Discharge Recommendations: Discharge Recommendations: Home with Home health PT Patient Education: PT Education: Goals, PT Role, Plan of Care Equipment Recommendations: Equipment Needed: No Plan: Times per week: 4-5xGM Current Treatment Recommendations: Strengthening, Balance Training, Transfer Training, Functional Mobility Training, Gait Training, Endurance Training, Home Exercise Program, Safety Education & Training, Patient/Caregiver Education & Training Goals: Patient goals : to return home with fiance Short term goals Time Frame for Short term goals: by discharge Short term goal 1: Pt to perform bed mobility with supervision to improve ease of getting in and out of bed. Short term goal 2: Pt to perform sit<>stand with mod I to improve ease of transfers. Short term goal 3: Pt to ambulate >150 ft without an AD at supervision to improe ability to navigate within the home and community. emt intermediate goals Time Frame for MCC goals : N/A secondary to short ELOS Following session, patient left in safe position with all fall risk precautions in place. * Renea Alba PA-C - 01/31/2020 11:01 AM EDT Cardiology Progress Note Patient: Samreen Dawson Date of : 1955 Acct: [id number] Admit Date: 01/30/2020 Primary Used Car Make Ready Mechanic: Ritchie Brumfield MD Seen by dr orantes Note per dr orantes Reason for Consultation: Shortness of breath History Of Present Illness: 64 y.o. pleasant female with history of PAF, severe aortic stenosis mean gradient of 49 mm Hg, Diastolic HF, heavily calcified coronary arteries who presented to the hospital with complaints of SOB on exertion CT chest showed ground glass opacities with diffuse interstitial prominence consistent with Acute CHF. Patient was scheduled for TAVR but cancelled due to acute hospitalization. Subjective (Events in last 24 hours): pt awake and alert. NAD. Breathing has improved but not to baseline. No edema in legs. Has chronic orthopnea. She is frustrated that her TAVR has not been done yet Net I/o -780 Objective: BP (!) 102/58 Pulse 69 Temp 97.8 F (36.6 C) (Oral) Resp 18 Ht 5' 6 (1.676 m) Wt 226 lb 1.6 oz (102.6 kg) SpO2 94% BMI 36.49 kg/m TELEMETRY: nsr, 17 beats NSVT this am Physical Exam: General Appearance: alert and oriented to person, place and time, in no acute distress Cardiovascular: normal rate, regular rhythm, normal S1 and S2, +murmur Pulmonary/Chest: clear to auscultation bilaterally- no wheezes, rales or rhonchi, normal air movement, no respiratory distress Abdomen: soft, non-tender, non-distended, normal bowel sounds, no masses Extremities: no cyanosis, clubbing or edema, pulse Skin: warm and dry, no rash or erythema Head: normocephalic and atraumatic Eyes: pupils equal, round, and reactive to light Neck: supple and non-tender without mass, no thyromegaly Musculoskeletal: normal range of motion, no joint swelling, deformity or tenderness Neurological: alert, oriented, normal speech, no focal findings or movement disorder noted Medications: sodium chloride flush 10 mL Intravenous 2 times per day [Held by provider] enoxaparin 40 mg Subcutaneous Daily aspirin 81 mg Oral Daily FLUoxetine 20 mg Oral Daily atorvastatin 80 mg Oral Nightly tiotropium 2 puff Inhalation Daily dilTIAZem 240 mg Oral Daily pantoprazole 40 mg Oral BID AC magnesium oxide 400 mg Oral Daily [Held by provider] acetaZOLAMIDE 250 mg Oral Once per day on Mon [place] insulin lispro 0-12 Units Subcutaneous TID WC insulin lispro 0-6 Units Subcutaneous Nightly midodrine 10 mg Oral TID WC furosemide 80 mg Intravenous BID dextrose sodium chloride flush, 10 mL, PRN acetaminophen, 650 mg, Q6H PRN Or acetaminophen, 650 mg, Q6H PRN polyethylene glycol, 17 g, Daily PRN promethazine, 12.5 mg, Q6H PRN Or ondansetron, 4 mg, Q6H PRN potassium chloride, 40 mEq, PRN Or potassium alternative oral replacement, 40 mEq, PRN Or potassium chloride, 10 mEq, PRN potassium chloride, 10 mEq, PRN magnesium sulfate, 2 g, PRN albuterol, 2.5 mg, Q6H PRN albuterol sulfate HFA, 2 puff, Q6H PRN glucose, 15 g, PRN dextrose, 12.5 g, PRN glucagon (rDNA), 1 mg, PRN dextrose, 100 mL/hr, PRN ipratropium-albuterol, 1 ampule, Q4H PRN Lab Data: Cardiac Enzymes: Recent Labs 01/30/20 1338 CKTOTAL 71 CBC: Lab Results Component Value Date WBC 8.3 01/31/2020 RBC 3.55 01/31/2020 RBC 4.68 10/16/2011 HGB 9.3 01/31/2020 HCT 33.4 01/31/2020 PLT 133 01/31/2020 CMP: Lab Results Component Value Date NA 135 01/31/2020 K 3.7 01/31/2020 CL 93 01/31/2020 CO2 31 01/31/2020 BUN 41 01/31/2020 CREATININE 1.7 01/31/2020 GFRAA >60 01/17/2020 LABGLOM 30 01/31/2020 GLUCOSE 135 01/31/2020 GLUCOSE 86 10/16/2011 CALCIUM 9.0 01/31/2020 Hepatic Function Panel: Lab Results Component Value Date ALKPHOS 61 01/31/2020 ALT 42 01/31/2020 AST 39 01/31/2020 PROT 6.6 01/31/2020 BILITOT 0.9 01/31/2020 BILIDIR 0.4 01/31/2020 LABALBU 3.4 01/31/2020 LABALBU 4.4 10/16/2011 Magnesium: Lab Results Component Value Date MG 2.0 01/31/2020 MG 2.0 10/16/2011 PT/INR: Lab Results Component Value Date PROTIME 10.6 10/16/2011 INR 1.19 01/25/2020 HgBA1c: Lab Results Component Value Date LABA1C 4.9 01/30/2020 FLP: Lab Results Component Value Date TRIG 107 12/12/2019 HDL 37 12/12/2019 LDLCALC 77 12/12/2019 TSH: Lab Results Component Value Date TSH 1.96 08/26/2019 Assessment: Acute on chronic hypoxemic resp failure - on 5 Lmin O2, normally on 3 L/min O2 at home Acute on chronic diastolic CHF Ef >55 per ARIA 09/01/19 Severe S/p Hyperkalemia LIBERTY/CKD Hx PAF Hx PPM Hx nonobstructive CAD per cath 08/2019 Hx HTN - midodrine started this admission Hx iron deficiency Anemia Hx GIB Hx COPD [id number] Plan: Daily I/o and weights 2 liter fluid restriction and 2gm sodium diet Keep mag >2 and K >4 Diuresis per nephro Avoid nitrates Cont statin/asa Restart BB and stop cdz Will need to f/up dr areli berry for reschedule of TAVR - will need OAC recs from ZHANE dyer RN that works with [facility] will discuss with pt at 3pm of next step * Gilmer Rogers - 01/31/2020 9:30 AM EDT Pt. Alert & orientated x4. Speech clear/ appropriate. Pupils 4mm-2mm. Equal, round,reactive. Mucous membranes pink, moist, intact. Expiratory wheeze upper and lower bilaterally, diminished at bases. Chest expansion symmetrical. Upper extremities mack, warm, dry. No numbness or tingling present. Scattered bruising through out UE bilateral. INT right forearm. Cap refill <3 seconds. Hand grasp strong,equal bilat. Skin turgor WNL. ABD active x4. No pain/ tenderness on palpitation, free of masses. Lower extremities warm, mack, dry. Slight discoloration bilateral. Pedal pulses weak +1. Pedal push, pull strong, equal bilat. No numbness or tingling noted. ROM WNL. Bony prominences intact, interior coccyx slightly opened. * Ashley Ramírez RN - 01/31/2020 8:53 AM EDT Per patient request made a phone call to Gomez Arambula. Patient states she wants to talk to her andhas some concerns about when her TAVR would be. Phone call made to Gomez and ask her to come see the patient, she states she will be up to round and see the patient shortly after 3. Updated the patient. * Margoth Prince DO - 01/31/2020 8:02 AM EDT Renal Progress Note [facility] Patient : Samreen Dawson; 64 y.o. Location: [facility]36/036-A Attending: Jessa Buchanan MD Admit Date: 01/30/2020 Hospital Day: 1 Subjective: Nephrology is following the patient for LIBERTY, fluid overload. Patient seen and examined. Feeling better this morning. Off bipap, on 5 L NC. Urine output is improved. Outpatient Medications: Medications Prior to Admission: dilTIAZem (CARDIZEM CD) 240 MG extended release capsule, Take 1 capsule by mouth daily HOLD for SBP </=100 or HR </=55 metoprolol tartrate (LOPRESSOR) 25 MG tablet, Take 0.5 tablets by mouth 2 times daily HOLD for SBP </=110 or HR </=55 pantoprazole (PROTONIX) 40 MG tablet, Take 1 tablet by mouth 2 times daily (before meals) OXYGEN, Inhale 3-4 L into the lungs continuous Magnesium 400 MG TABS, Take by mouth tiotropium (SPIRIVA RESPIMAT) 2.5 MCG/ACT AERS inhaler, Inhale 2 puffs into the lungs daily furosemide (LASIX) 40 MG tablet, Take 1 tablet by mouth 2 times daily potassium chloride (KLOR-CON M) 20 MEQ extended release tablet, Take 1 tablet by mouth 2 times daily acetaZOLAMIDE (DIAMOX) 250 MG tablet, One tab every Thursday and aspirin 81 MG tablet, Take 81 mg by mouth daily FLUoxetine (PROZAC) 20 MG tablet, Take 20 mg by mouth daily atorvastatin (LIPITOR) 80 MG tablet, Take 80 mg by mouth daily albuterol (PROVENTIL) (2.5 MG/3ML) 0.083% nebulizer solution, Take 2.5 mg by nebulization every 6 hours as needed for Wheezing albuterol sulfate HFA (VENTOLIN HFA) 108 (90 Base) MCG/ACT inhaler, Inhale 2 puffs into the lungs every 6 hours as needed for Wheezing Current Medications: Scheduled Meds: sodium chloride flush 10 mL Intravenous 2 times per day [Held by provider] enoxaparin 40 mg Subcutaneous Daily aspirin 81 mg Oral Daily FLUoxetine 20 mg Oral Daily atorvastatin 80 mg Oral Nightly tiotropium 2 puff Inhalation Daily dilTIAZem 240 mg Oral Daily pantoprazole 40 mg Oral BID AC magnesium oxide 400 mg Oral Daily [Held by provider] acetaZOLAMIDE 250 mg Oral Once per day on Thu insulin lispro 0-12 Units Subcutaneous TID insulin lispro 0-6 Units Subcutaneous Nightly midodrine 10 mg Oral TID furosemide 80 mg Intravenous BID Continuous Infusions: dextrose PRN Meds: sodium chloride flush, acetaminophen OR acetaminophen, polyethylene glycol, promethazine OR ondansetron, potassium chloride OR potassium alternative oral replacement OR potassium chloride, potassium chloride, magnesium sulfate, albuterol, albuterol sulfate HFA, glucose, dex trose, glucagon (rDNA), dextrose, ipratropium-albuterol Input/Output: I/O last 3 completed shifts: In: 400 [P.O.:400] Out: 1100 [Urine:1100]. Patient Vitals for the past 96 hrs (Last 3 readings): Weight 01/31/20 0330 226 lb 1.6 oz (102.6 kg) 01/30/20 0710 220 lb (99.8 kg) Vital Signs: Temperature: Temp: 96.3 F (35.7 C) TMax: Temp (24hrs), Av.8 F (36.6 C), Min:96.3 F (35.7 C), Max:98.9 F (37.2 C) Respirations: Resp: 16 Pulse: Pulse: 65 BP: BP: (!) 117/57 BP Range: Systolic (24hrs), Av , Min:92 , Max:117 Diastolic (24hrs), Av, Min:55, Max:66 Physical Examination: General: Awake, alert, no acute distress HEENT: NC/AT/ MMM Chest: Rhonchi noted B/L Cardiac: S1 S2 Abdomen: Soft, non-tender, Neuro: No facial droop, No Asterixis SKIN: No rashes, good skin turgor. Extremities: No edema, no cyanosis Labs: Recent Labs 01/30/20 0916 01/31/20 0408 WBC 12.5* 8.3 RBC 3.85* 3.55* HGB 10.2* 9.3* HCT 35.9* 33.4* MCV 93.2 94.1 MCH 26.5 26.2 MCHC 28.4* 27.8* PLT 136 133 MPV 12.0 12.3 BMP: Recent Labs 01/30/20 0916 01/30/20 1338 01/31/20 0407 NA 136 135 135 K 6.0* 5.2 3.7 CL 96* 96* 93* CO2 26 29 31 BUN 35* 37* 41* CREATININE 2.0* 2.1* 1.7* GLUCOSE 143* 164* 135* CALCIUM 9.4 9.3 9.0 Phosphorus: No results for input(s): PHOS in the last 72 hours. Magnesium: Recent Labs 01/30/20 0916 01/31/20 040 MG 2.0 2.0 Albumin: Recent Labs 01/30/20 0916 01/31/20 0407 LABALBU 3.7 3.4* BNP: No results found for: BNP HOLLAND: No results found for: HOLLAND SPEP: Lab Results Component Value Date PROT 6.6 01/31/2020 UPEP: No results found for: LABPE C3: No results found for: C3 C4: No results found for: C4 MPO ANCA: No results found for: MPO PR3 ANCA: No results found for: PR3 Anti-GBM: No results found for: GBMABIGG Hep BsAg: Lab Results Component Value Date HEPBSAG Negative 01/31/2020 Hep C AB: Lab Results Component Value Date HEPCAB Negative 01/31/2020 Urinalysis/Chemistries: Lab Results Component Value Date NITRU NEGATIVE 01/30/2020 COLORU DARK YELLOW 01/30/2020 PHUR 5.0 01/30/2020 LABCAST >15 HYALINE 01/30/2020 LABCAST 0-4 C.GRAN 01/30/2020 WBCUA 15-25 01/30/2020 RBCUA > 200 01/30/2020 MUCUS NOT REPORTED 08/26/2019 TRICHOMONAS NOT REPORTED 08/26/2019 YEAST NONE SEEN 01/30/2020 BACTERIA NONE SEEN 01/30/2020 SPECGRAV 1.016 01/30/2020 LEUKOCYTESUR MODERATE 01/30/2020 UROBILINOGEN 0.2 01/30/2020 BILIRUBINUR NEGATIVE 01/30/2020 BLOODU LARGE 01/30/2020 GLUCOSEU NEGATIVE 08/26/2019 KETUA NEGATIVE 01/30/2020 AMORPHOUS NOT REPORTED 08/26/2019 Urine Sodium: No results found for: SHELDON Urine Potassium: No results found for: KUR Urine Chloride: No results found for: CLUR Urine Osmolarity: No results found for: OSMOU Urine Protein: No components found for: TOTALPROTEIN, URINE Urine Creatinine: No results found for: LABCREA Urine Eosinophils: No components found for: UEOS Impression and Plan: 1. LIBERTY: urine lytes appear prerenal from renal hypoperfusion from hypotension + cardiorenal syndrome -improving with improving urine output, no need for WAREHOUSE ASSISTANT at this time -continue with lasix 80 mg IV BID -continue with Midodrine -f/u renal ultrasound -UA with some hematuria, proteinuria < 1 gram, serologies sent 2. S/p hyperkalemia, improved, DC low K diet. K now 3.7 and diuresing better will give 20 meq KCl 3. S/p hypotension 4. Pulmonary edema 5. Diastolic CHF 6. Severe 7. Anemia 8. COPD on Home O2 Please don't hesitate to call with any questions. * Meryl Dickens, PT - 01/30/2020 2:17 PM EDT [facility] PHYSICAL THERAPY MISSED TREATMENT NOTE ACUTE CARE STRZ CCU-STEPDOWN 3B Missed Treatment RN requesting to hold PT this date due to patient still on BiPap. PT to plan to check back 01/31/20. Meryl Dickens, [place] [phone] * Violet Liz RN - 01/30/2020 11:03 AM EDT Educated patient regarding heart failure management by explaining the importance of obtaining dailyweights at the same time every day with approximately the same amount of clothing, how to recognizesymptoms, low sodium diet and taking prescribed medications as ordered. Patient was given our heartfailure booklet, a weight chart and a low sodium diet sheet. Patient was receptive to the educationgiven and verbalized understanding. Patient states it is too far to drive for CHF clinic in [place] but would like to go to CHF clinic in [place]. Nurse Raymond notified * Carmelita Garcia RPH - 01/30/2020 10:44 AM EDT Pharmacy Medication History Note List of current medications patient is taking is complete. Source of information: patient, discharge AVS from 01/27/2020 Changes made to medication list: Other notes (ex. Recent course of antibiotics, Coumadin dosing): Denies use of other OTC or herbal medications. Allergies reviewed * Lazaro Camejo - 01/30/2020 9:28 AM EDT Inpatient Cardiac Rehabilitation Consult Received consult for Phase II Cardiac Rehabilitation. We will follow pt. * Carlos Dunn RN - 01/30/2020 9:00 AM EDT Pt admitted to [facility] via cart/stretcher and via ambulance. Complaints: Shortness of breath. IV none infusing into the wrist right, condition patent and no redness at a rate of 0 mls/ hour with about 0 mls in the bag still. IV site free of s/s of infection or infiltration. Vital signs obtained. Assessment and data collection initiated. Two nurse skin assessment performed by Raymond CHAMBERS and Jeni CHAMBERS. Oriented to room. Policies and procedures for explained. Jessica discussed hourly rounding with patient addressing 5 P's. Fall prevention and safety brochure discussed with patient. Bed alarm on. Call light in reach. The best day to schedule a follow up Dr appointment is: Thursday p.m. Explained patients right to have family, product sales representative or physician notified of their admission. Patien t has Declined for physician to be notified. Patient has Declined for family/product sales representative to be notified. All questions answered with no further questions at this time. * Vanesa Schroeder RN - 01/30/2020 2:42 AM EDT [facility],Dr Phelan. 64 yr old pt of Dr Brumfield with severe aortic stenosis, was scheduled forTAVR on 01/24 but was cancelled due to SOB and anemia, she had a GI workup and no bleed was found, was DC'd on 01/26. In ED tonight with severe SOB, on bipap now sat 95%. CXR mod to severe pulmonary edema. Troponin 0.139,was 0.399 on 01/24. WBC 17.4, creat 2.02,K+5.2,sod 133 H&H 11/38 BNP 20,784.Has gotten Lasix and morphine, breathing has improved. Vitals Afebrile, 116/55,60 paced,95% on bipap. documented in this encounter* Lang Simpson RN - 02/17/2020 8:40 PM EDT Pt dc'd with daughter, all belongings with pt, wearing home O2 unit, IV dc'd, left via wheel hair. Pt and daughter educated and discharge instructions given, al questions answered. * Oxana Velasquez RD, CAROLYN - 02/17/2020 10:38 AM EDT Nutrition Assessment Type and Reason for Visit: Reassess Nutrition Recommendations/Plan: -Continue cardiac diet -Pt denied all nutritional supplements at this time Nutrition Assessment: Pt improving from a nutritional standpoint aeb pt was extubated on 02/14 and started on a PO diet. Pt stated that she has a great appetite and is consuming 75% of her meals. No wounds noted. Pt stated UBW of 219 lbs and denies any recent wt loss. Pt reports that her wt gain in the past was r/t fluid. Pt denied all nutritional supplements at this time. Full nutrition assessment not needed at this time. Deemed to be low-risk. Will monitor for changes in nutritional status. Malnutrition Assessment: Malnutrition Status: At risk for malnutrition (Comment) Current Nutrition Therapies: DIET CARDIAC; Nutrition Diagnosis: No nutrition diagnosis at this time Nutrition Interventions: Food and/or Nutrient Delivery: Continue Current Diet Nutrition Education/Counseling: Education not indicated Coordination of Nutrition Care: Continued Inpatient Monitoring Goals: meet 75-100% of estimated nutrition needs Achieved Nutrition Monitoring and Evaluation: Food/Nutrient Intake Outcomes: Food and Nutrient Intake Physical Signs/Symptoms Outcomes: Biochemical Data, Nutrition Focused Physical Findings, Skin, Weight, GI Status Discharge Planning: Continue current diet Contact: [phone] * Paresh Brewer MD - 02/17/2020 7:53 AM EDT [facility] Office: [phone] Arnie Khan DO, Jose D Duran DO, Mervin Melo DO, Federico Hanson DO, Lexii Kwon MD, Aisha Carrillo MD, Oli Stone MD, Mahogany Urbina MD, Tor Gonzalez MD, Windy Perkins MD, MD Aditya, Tucker Grady MD, Mark Rodriguez MD, Fausto Cordova DO, Glenna Garcia MD, Nicolas Bingham MD, Henry Ruano DO, Paresh Brewer MD, Kathleen Lee DO, Bruce Cleary MD, MD Rafael, Peggy Chu, PLACEMENT ASSISTANT, Cindy Ruiz, PLACEMENT ASSISTANT, Estee Euceda, PLACEMENT ASSISTANT, Bernice Mckinnon, SUPPLY AIDE,Dandre Shay, PLACEMENT ASSISTANT, More Hua, PLACEMENT ASSISTANT, Tatiana Broderick, PLACEMENT ASSISTANT, Valencia Bell, PLACEMENT ASSISTANT, Luis Jalloh, PLACEMENT ASSISTANT, Darío Mayorga PAFranC, Teresa De La Rosa, SOUTH, Juliane Hyman, PLACEMENT ASSISTANT, Sammie Almonte, PLACEMENT ASSISTANT, Sally Brandt, PLACEMENT ASSISTANT, Neisha Kerr, PLACEMENT ASSISTANT, Jovana Watt, PLACEMENT ASSISTANT [facility] IN-PATIENT SERVICE [facility] Progress Note 02/17/2020 7:53 AM Name: Samreen Dawson Acct: [id number] Room: 1006/1006-01 Day: 4 Admit Date: 02/13/2020 9:56 PM PCP: MANJU PRESTON Code Status: Full Code Subjective: C/C: No chief complaint on file. shortness of breath Interval History Status: improved. Patient seen and examined at bedside. No acute issues. Back on home oxygen. Shortness of breath hasgreatly improved. Has been getting nebulizer treatment. Had a headache last night did resolve after2 hours. No residual neurological defects. Brief History: 62-year-old female presents with respiratory failure worsening shortness of breath placed on BiPAP however continued of poor oxygenation and was intubated and transferred to [facility]'s ICU. Patient has history of COPD requiring 3 L of oxygen per minute and complicated by systolic CHF due to severe aortic stenosis. Patient underwent TAVR procedure on 02/15/2020. Patient was extubated 02/15/2020. Review of Systems: Constitutional: negative for chills, fevers, sweats Respiratory: negative for cough, dyspnea on exertion, shortness of breath, wheezing Cardiovascular: negative for chest pain, chest pressure/discomfort, lower extremity edema, palpitations Gastrointestinal: negative for abdominal pain, constipation, diarrhea, nausea, vomiting Neurological: negative for dizziness, headache Medications: Allergies: Allergies Allergen Reactions Benadryl [Diphenhydramine] Anaphylaxis Codeine Anaphylaxis Current Meds: Scheduled Meds: albuterol 2.5 mg Nebulization BID metoprolol tartrate 12.5 mg Oral BID tiotropium 2 puff Inhalation Daily furosemide 40 mg Oral Daily potassium chloride 20 mEq Oral Daily with breakfast clopidogrel 75 mg Oral Daily sodium chloride flush 10 mL Intravenous 2 times per day sennosides-docusate sodium 1 tablet Oral BID aspirin 81 mg Oral Daily atorvastatin 80 mg Oral Daily FLUoxetine 20 mg Oral Daily pantoprazole 40 mg Intravenous Daily Continuous Infusions: sodium chloride 75 mL/hr at 02/15/20 1120 PRN Meds: acetaminophen, labetalol, sodium chloride flush, acetaminophen OR acetaminophen, promethazine OR ondansetron, magnesium hydroxide, fentanNYL OR fentanNYL Data: Past Medical History: has a past medical history of Aortic stenosis, Asthma, Blood circulation, collateral, Cerebral artery occlusion with cerebral infarction ([facility]), CHF (congestive heart failure) ([facility]), COPD (chronic obstructive pulmonary disease) ([facility]), Decreased cardiac ejection fraction, Diabetes mellitus ([facility]), GERD (gastroesophageal reflux disease), H/O echocardiogram, Hyperlipidemia, Hypertension, and Status post transesophageal echocardiogram ([facility]). Social History: reports that she has quit smoking. Her smoking use included cigarettes. She smoked 1.00 pack per day. She has never used smokeless tobacco. She reports previous alcohol use. She reports that she does not use drugs. Family History: No family history on file. Vitals: BP (!) 148/56 Pulse 73 Temp 98 F (36.7 C) (Oral) Resp 21 Ht 5' 6 (1.676 m) Wt 219 lb 9.3oz (99.6 kg) SpO2 97% BMI 35.44 kg/m Temp (24hrs), Av.1 F (36.7 C), Min:97.9 F (36.6 C), Max:98.8 F (37.1 C) Recent Labs 02/16/20 1616 02/16/20 2035 02/17/20 0043 02/17/20 0639 POCGLU 155* 129* 113* 120* I/O (24Hr): Intake/Output Summary (Last 24 hours) at 02/17/2020 0753 Last data filed at 02/16/2020 1509 Gross per 24 hour Intake 440 ml Output 1350 ml Net -910 ml Labs: Hematology: Recent Labs 02/15/20 0544 02/15/20 2334 02/16/203 02/17/20 0631 WBC 14.1* -- -- 9.8 7.1 RBC 3.43* -- -- 3.19* 3.52* HGB 8.7* < > 7.8* 8.0* 8.5* HCT 31.5* < > 27.5* 28.5* 30.7* MCV 91.8 -- -- 89.3 87.2 MCH 25.4 -- -- 25.1* 24.1* MCHC 27.6* -- -- 28.1* 27.7* RDW 16.8* -- -- 17.0* 16.7* PLT 246 -- -- 198 191 MPV 11.7 -- -- 11.0 10.8 < > = values in this interval not displayed. Chemistry: Recent Labs 02/15/20 0544 02/15/20 1140 02/15/20 1312 02/15/20 1718 02/16/20 0413 02/17/20 0631 NA 139 -- -- 140 -- 138 139 K 4.3 -- -- 3.7 -- 4.0 4.4 CL 98 -- -- 99 -- 100 100 CO2 27 -- -- 30 -- 28 28 GLUCOSE 163* -- -- 145* -- 121* 113* BUN 41* -- -- 40* -- 39* 27* CREATININE 1.61* < > -- 1.54* -- 1.18* 0.76 MG 2.2 -- -- -- -- 2.3 2.2 ANIONGAP 14 -- -- 11 -- 10 11 LABGLOM 32* < > -- 34* -- 46* >60 GFRAA 39* -- -- 41* -- 56* >60 CALCIUM 9.7 -- -- 9.3 -- 9.0 9.2 CAION 1.25 -- -- -- -- 1.18 1.22 PHOS 4.5 -- -- -- -- 3.1 3.1 TROPHS 163* -- 204* -- 240* -- -- < > = values in this interval not displayed. Recent Labs 02/16/20 0818 02/16/20 1155 02/16/20 1616 02/16/20 2035 02/17/20 0043 02/17/20 0639 POCGLU 142* 131* 155* 129* 113* 120* ABG: Lab Results Component Value Date POCPH 7.340 02/15/2020 PH 7.40 02/02/2020 POCPCO2 59.7 02/15/2020 PCO2 68 02/02/2020 POCPO2 67.3 02/15/2020 PO2 72 02/02/2020 POCHCO3 32.2 02/15/2020 HCO3 42 02/02/2020 NBEA NOT REPORTED 02/15/2020 PBEA 5 02/15/2020 TWU2REZ 34 02/15/2020 WAOD3BGU 91 02/15/2020 O2SAT 93 02/02/2020 FIO2 40.0 02/15/2020 No results found for: SPECIAL No results found for: CULTURE Radiology: Xr Chest Portable Result Date: 02/15/2020 Stable support lines/leads Improvement in still cpav-ec-aknoiipa vascular congestion Decrease in still moderate left basilar opacity related to combined pleural-parenchymal process Xr Chest Portable Result Date: 02/14/2020 1. Stable left basilar atelectasis plus or minus mild pleural effusion. 2. Suspected moderate pulmonary interstitial edema with overlying multifocal ill- defined consolidation suggesting alveolar edema. 3. Mild cardiomegaly. Xr Abdomen For Ng/og/ne Tube Placement Result Date: 02/14/2020 Enteric tube ends in the mid gastric body. Cardiomegaly with left-sided pleural effusion and bilateral lower lung airspace opacities noted. Multilevel thoracolumbar spondylosis. Physical Examination: General appearance: alert, cooperative and no distress, nasal cannula Mental Status: oriented to person, place and time and normal affect Lungs: clear to auscultation bilaterally, normal effort Heart: regular rate and rhythm, no murmur Abdomen: soft, nontender, nondistended, normal bowel sounds, no masses, hepatomegaly, splenomegaly Extremities: no edema, redness, tenderness in the calves Skin: no gross lesions, rashes, induration Assessment: Hospital Problems Last Modified POA * (Principal) Acute on chronic combined systolic and diastolic congestive heart failure ([facility]) 02/15/2020 Yes Severe aortic stenosis 02/15/2020 Yes Aortic stenosis with bicuspid valve 02/14/2020 Yes Gastroesophageal reflux disease 02/15/2020 Yes Stage 4 very severe COPD by GOLD classification ([facility]) 02/14/2020 Yes Acute respiratory failure with hypoxia ([facility]) 02/13/2020 Yes Class 2 severe obesity due to excess calories with serious comorbidity and body mass index (BMI) of35.0 to 35.9 in adult ([facility]) 02/14/2020 Yes Plan: 1. Continue p.o. Lasix, and potassium 2. Final echo read is still pending 3. Lopressor started with parameters 4. Patient appears to be clinically improving. We will plan for possible discharge today with clearance from other services. Paresh Brewer MD 02/17/2020 7:53 AM * Jose Luis Marcial DO - 02/17/2020 7:34 AM EDT [facility] [employer] Associate Progress Note Date: 02/17/2020 Patient name: Samreen Dawson Date of admission: 02/13/2020 9:56 PM Date of : 1955 PCP: MANJU PRESTON Reason for Admission: Acute respiratory failure with hypoxia ([facility]) [J96.01] Subjective: Clinical Changes / Abnormalities: Patient seen and examined. No acute events overnight. Remained hemodynamically stable and afebrile. Post TAVR day 2. No CP/SOB. No groin pain. I/O last 3 completed shifts: In: 440 [P.O.:440] Out: 1350 [Urine:1350] No intake/output data recorded. I/O since admission: -1.2 liters Medications: Scheduled Meds: albuterol 2.5 mg Nebulization BID tiotropium 2 puff Inhalation Daily furosemide 40 mg Oral Daily potassium chloride 20 mEq Oral Daily with breakfast clopidogrel 75 mg Oral Daily sodium chloride flush 10 mL Intravenous 2 times per day sennosides-docusate sodium 1 tablet Oral BID aspirin 81 mg Oral Daily atorvastatin 80 mg Oral Daily FLUoxetine 20 mg Oral Daily pantoprazole 40 mg Intravenous Daily Continuous Infusions: sodium chloride 75 mL/hr at 02/15/20 1120 CBC: Recent Labs 02/15/20 0544 02/15/20 2334 02/16/20 0413 02/17/20 0631 WBC 14.1* -- -- 9.8 7.1 HGB 8.7* < > 7.8* 8.0* 8.5* PLT 246 -- -- 198 191 < > = values in this interval not displayed. BMP: Recent Labs 02/15/20 1312 02/16/20 0413 02/17/20 0631 NA 140 138 139 K 3.7 4.0 4.4 CL 99 100 100 CO2 30 28 28 BUN 40* 39* 27* CREATININE 1.54* 1.18* 0.76 GLUCOSE 145* 121* 113* Hepatic: No results for input(s): AST, ALT, ALB, BILITOT, ALKPHOS in the last 72 hours. Troponin: Recent Labs 02/15/20 0544 02/15/20 1140 02/15/20 1718 TROPHS 163* 204* 240* BNP: No results for input(s): BNP in the last 72 hours. Lipids: No results for input(s): CHOL, HDL in the last 72 hours. Invalid input(s): LDLCALCU INR: No results for input(s): INR in the last 72 hours. Objective: Vitals: BP (!) 148/56 Pulse 73 Temp 98 F (36.7 C) (Oral) Resp 16 Ht 5' 6 (1.676 m) Wt 219 lb 9.3 oz (99.6 kg) SpO2 97% BMI 35.44 kg/m General appearance: Alert. No acute distress. HEENT: Head: Normal, normocephalic, atraumatic. Neck: no JVD, trachea midline Lungs: + wheezing b/l Heart: Regular rate and rhythm, S1, S2 normal, + systolic murmur in RUSB Abdomen: Soft, non-tender Extremities: No edema, no groin hematoma or tenderness. Neurologic: No focal neurologic deficits ARIA 09/01/2019: EF 55%, possible bicuspid AV, severe . CATH 09/01/2019: LMCA: Mild irregularities 10-20%. LAD: Mild irregularities 30-40%. LCx: Mild irregularities 20-30%. RCA: Lesion on Mid RCA: Mid subsection.40% stenosis. ECHO 07/20/2019: EF 60%, severe with peak gradient 70 mmHg and mean gradient 49 mmHg, grade I DD. Assessment: 1. Acute hypoxic resp failure - 2/2 to CHF and COPD, off MV now 2. Acute on chronic diastolic HF 3. Severe aortic stenosis s/p TAVR 29 mm CoreValve 02/15/20 4. LIBERTY on CKD - improving 5. PPM in situ 6. DM 7. COPD 8. Hx of GI bleed 9. HTN 10. Hx of CVA 11. Chronic anemia - stable Plan / Recommendations: 1. Improved resp status post TAVR. No groin complications. 2. Continue aspirin, lipitor and plavix 3. Start lopressor 12.5 mg bid with parameters. 4. Continue lasix 40 mg po. Negative 1.2L. CXR pending. Renal function now normal. 5. Electrolyte repletion. 6. COPD management per primary team. 7. Formal echo will be read today. If echo unremarkable and cleared from pulmonary stand point, okay to discharge from cardiology stand point. Thank you for allowing us to participate in Samreen Dawson's care. Will follow with you. Electronically signed on 02/17/20 at 7:34 AM by: Anai Pedraza MD Fellow, Cardiovascular Diseases [facility] Attending Used Car Make Ready Mechanic Addendum: I have reviewed and performed the history, physical, subjective, objective, assessment, and plan with the resident/fellow and agree with the note. I performed the history and physical personally. I have made changes to the note above as needed. Prelim Echo- reviewed, normal LVEF, and TAVR function without significant /AI. Thank you for allowing me to participate in the care of this patient, please do not hesitate to call if you have any questions. Jose Luis Marcial DO, FACC, LIAN [facility] * Max Haro MD - 02/16/2020 12:58 PM EDT PULMONARY & CRITICAL CARE MEDICINE PROGRESS NOTE Patient: Samreen Dawson Admit date: 02/13/2020 Primary Care Physician: MANJU PRESTON Consulting Physician: Paresh Brewer MD CODE Status: Full Code SUBJECTIVE CHIEF COMPLAINT/REASON FOR INITIAL CONSULT: Acute respiratory failure Interval History Afebrile. Non-tachycardic. Hemodynamically stable. 3 L NC saturating well. 1975 urine output last 24 hours CXR showing improved vascular congestion. S/p extubation yesterday POD 1 TAVR Doing well . No complaints. BRIEF HOSPITAL COURSE: The patient is a 64 y.o. female with history of COPD, diastolic CHF, severe aortic stenosis was admitted with worsening shortness of breath. She was intubated at outside facility and transected secondary to further management. She underwent TAVR earlier today. At the time of my evaluation patient was on mechanical ventilation. She was awake and alert and following commands. She was put on CPAP trial which was tolerated well and patient was subsequently extubated without any immediate complications. REVIEW OF SYSTEMS: OBJECTIVE Ventilator Settings: Vent Information $Ventilation: Off Vent Skin Assessment: Clean, dry, & intact Suction Catheter Diameter: 14 Equipment ID: [id number] Equipment Changed: (S) HME Vent Type: 980 Vent Mode: AC/VC+ Vt Ordered: 480 mL Rate Set: 16 bmp Pressure Support: 8 cmH20 FiO2 : 32 % SpO2: 96 % SpO2/FiO2 ratio: 296.88 Sensitivity: 2 PEEP/CPAP: 5 I Time/ I Time %: 0.9 s Humidification Source: HME Nitric Oxide/Epoprostenol In Use?: No VITAL SIGNS: LAST- BP (!) 146/102 Pulse 81 Temp 98.1 F (36.7 C) (Oral) Resp 20 Ht 5' 6 (1.676 m) Wt 219 lb 9.3 oz (99.6 kg) SpO2 96% BMI 35.44 kg/m 8-24 HR RANGE- TEMP Temp Av F (36.7 C) Min: 97.8 F (36.6 C) Max: 98.3 F (36.8 C) BP Systolic (24hrs), Av , Min:98 , Max:155 Diastolic (24hrs), Av, Min:48, Max:102 PULSE Pulse Av.6 Min: 68 Max: 87 RR Resp Av Min: 20 Max: 20 O2 SAT SpO2 Av.6 % Min: 89 % Max: 98 % OXYGEN DELIVERY O2 Flow Rate (L/min) Av L/min Min: 3 L/min Max: 3 L/min SYSTEMIC EXAMINATION: General appearance - alert and orientated. Mental status - A&O x 3 Eyes - pupils equal and reactive, sclera anicteric Mouth - mucous membranes moist, pharynx normal without lesions Neck - supple, no significant adenopathy, carotids upstroke normal bilaterally, no bruits Chest -breath sounds but diminished in bases, occasional crackles Heart - normal rate, regular rhythm, normal S1, S2, no murmurs, rubs, clicks or gallops Abdomen - soft, nontender, nondistended, no masses or organomegaly Neurological - DTR's normal and symmetric, motor and sensory grossly normal bilaterally Extremities - peripheral pulses normal, no pedal edema, no clubbing or cyanosis Skin - normal coloration and turgor, no rashes, no suspicious skin lesions noted DATA REVIEW Medications: Current Inpatient Scheduled Meds: tiotropium 2 puff Inhalation Daily furosemide 40 mg Oral Daily potassium chloride 20 mEq Oral Daily with breakfast sodium chloride flush 10 mL Intravenous 2 times per day clopidogrel 75 mg Oral Daily insulin lispro 0-12 Units Subcutaneous Q4H sodium chloride flush 10 mL Intravenous 2 times per day sennosides-docusate sodium 1 tablet Oral BID aspirin 81 mg Oral Daily atorvastatin 80 mg Oral Daily FLUoxetine 20 mg Oral Daily pantoprazole 40 mg Intravenous Daily Continuous Infusions: sodium chloride 75 mL/hr at 02/15/20 1120 dextrose INPUT/OUTPUT: In: 1453 [P.O.:610; I.V.:843] Out: 0 [Urine:2109] Date 02/16/20 0000 - 02/16/20 2359 Shift 1906-1006 7730-5425 8058-6641 24 Hour Total INTAKE P.O.(mL/kg/hr) 370(0.5) 240 610 I.V.(mL/kg) 244(2.4) 244(2.4) Shift Total(mL/kg) 614(6.2) 240(2.4) 854(8.6) OUTPUT Urine(mL/kg/hr) 775(1) 700 1475 Shift Total(mL/kg) 775(7.8) 700(7) 1475(14.8) Weight (kg) 99.6 99.6 99.6 99.6 LABS:- ABG: Recent Labs 02/13/20 2350 02/14/20 0404 02/15/20 0416 02/15/20 1124 02/15/20 1334 POCPH 7.340* 7.363 7.422 7.348* 7.340* POCPCO2 65.5* 54.8* 50.6* 60.7* 59.7* POCPO2 65.0* 64.9* 79.4* 92.1 67.3* POCHCO3 35.4* 31.2* 32.9* 33.3* 32.2* [id number] 90* 91* 96 96 91* CBC: Recent Labs 02/14/20 0443 02/14/20 1020 02/15/20 0544 02/15/20 1718 02/15/20 2334 02/16/20 0413 WBC 10.1 10.2 -- 14.1* -- -- -- 9.8 HGB 8.6* 8.5* < > 8.7* < > 7.9* 7.8* 8.0* HCT 31.5* 30.5* < > 31.5* < > 28.0* 27.5* 28.5* MCV 90.5 87.6 -- 91.8 -- -- -- 89.3 PLT 242 222 -- 246 -- -- -- 198 LYMPHOPCT 9* -- -- 9* -- -- -- 10* RBC 3.48* 3.48* -- 3.43* -- -- -- 3.19* MCH 24.7* 24.4* -- 25.4 -- -- -- 25.1* MCHC 27.3* 27.9* -- 27.6* -- -- -- 28.1* RDW 16.5* 16.5* -- 16.8* -- -- -- 17.0* < > = values in this interval not displayed. BMP: Recent Labs 02/14/20 0443 02/15/20 0544 02/15/20 1124 02/15/20 1312 02/16/20 0413 NA 141 139 -- 140 138 K 4.2 4.3 -- 3.7 4.0 CL 99 98 -- 99 100 CO2 25 27 -- 30 28 BUN 30* 41* -- 40* 39* CREATININE 1.37* 1.61* 1.96* 1.54* 1.18* GLUCOSE 188* 163* -- 145* 121* PHOS 3.8 4.5 -- -- 3.1 Liver Function Test: No results for input(s): PROT, LABALBU, ALT, AST, GGT, ALKPHOS, BILITOT in the last 72 hours. Amylase/Lipase: No results for input(s): AMYLASE, LIPASE in the last 72 hours. Coagulation Profile: Recent Labs 02/14/20 1729 02/15/20 0035 02/15/20 0825 APTT 28.3 35.5* 33.6* Cardiac Enzymes: No results for input(s): CKTOTAL, CKMB, CKMBINDEX, TROPONINI in the last 72 hours. Lactic Acid: No results found for: LACTA BNP: No results found for: BNP D-Dimer: Lab Results Component Value Date DDIMER 0.99 (H) 07/18/2019 Others: Lab Results Component Value Date TSH 1.96 08/26/2019 Lab Results Component Value Date SEDRATE 29 (H) 01/31/2020 CRP 2.35 (H) 01/31/2020 No results found for: LABURIC, URICACID Lab Results Component Value Date IRON 30 (L) 01/25/2020 FERRITIN 104 01/25/2020 No results found for: SPEP, UPEP No results found for: PSA, CEA, CA125, AA4337, CA199 Microbiology: Pathology: Radiology Reports: XR CHEST PORTABLE Final Result Stable support lines/leads Improvement in still suaj-eh-qogpjdlf vascular congestion Decrease in still moderate left basilar opacity related to combined pleural-parenchymal process XR ABDOMEN FOR NG/OG/NE TUBE PLACEMENT Final Result Enteric tube ends in the mid gastric body. Cardiomegaly with left-sided pleural effusion and bilateral lower lung airspace opacities noted. Multilevel thoracolumbar spondylosis. XR CHEST PORTABLE Final Result 1. Stable left basilar atelectasis plus or minus mild pleural effusion. 2. Suspected moderate pulmonary interstitial edema with overlying multifocal ill-defined consolidation suggesting alveolar edema. 3. Mild cardiomegaly. Echocardiogram: Results for orders placed during the hospital encounter of 07/18/19 [id number] COMPLETE Narrative Summary Global left ventricular systolic function appears preserved with an estimated ejection fraction of 60%. The left ventricular cavity size is within normal limits and the left ventricular wall thickness is severely increased. No definite specific wall motion abnormalities were identified. Severe aortic stenosis with peak and mean gradient of 70 and 49 mmHg. Mitral annular calcification is seen with mean gradient of 3.8 mmHg. No significant mitral regurgitation. Normal tricuspid valve structure with mild tricuspid regurgitation. Evidence of mild (grade I) diastolic dysfunction is seen. No prior studies were available for comparison. Consider corrective aortic valve surgery/intervention if clinically indicated. Cardiac Catheterization: No results found for this or any previous visit. ASSESSMENT AND PLAN Assessment: // Acute respiratory failure, status post extubation // Acute pulmonary edema // Congestive cardiac failure // Severe aortic stenosis, status post TAVR // Gastroesophageal reflux disease // Very severe COPD // Obesity Plan: I personally interviewed/examined the patient; reviewed interval history, interpreted all availableradiographic and laboratory data at the time of service. Will recommend nocturnal BiPAP Continue supplemental oxygen to keep oxygen saturations greater than 92% Continue antiplatelet, anticoagulation, statins, and beta blockers as per cardiology Continue pulmonary toilet, aspiration precautions and bronchodilators Continue with the diuresis Continue to monitor I/O with a goal of even/negative fluid balance Stress ulcer prophylaxis Continue to monitor CBC, coagulation profile, transfuse as indicated Chemical DVT prophylaxis Antimicrobials reviewed; continue vancomycin Glycemic control appropriate Skin/wound care reviewed with the nursing staff Physical/occupational therapy Follow up with pulmonology as an outpatient Max Haro MD Internal Medicine Resident, PGY-3 [facility]; [place], [place] 02/16/2020, 3:39 PM Please note that this chart was generated using voice recognition Dragon dictation software. Although every effort was made to ensure the accuracy of this automated airborne operations manager, some errors in airborne operations manager may have occurred. Associated attestation - Yuriy Welch MD - 02/16/2020 11:22 PM EDT Critical Care Attending Physician Addendum: I have personally seen and examined Samreen Dawson with the resident and the warren elements of all parts of the encounter were performed by me. Patient was reassessed on more than one occasion, when required. I reviewed the interval history, interpreted all available radiographic, laboratory and physiologic data at the time of service. I agree with the assessment and plan as documented by resident. Critical care time (excluding procedures) of greater than 30 minutes was spent in coordination of care during bedside rounds and discussion of patient care in detail. Status post extubation, doing well from a respiratory standpoint. She remains hemodynamically stable. Continue diuresis, bronchodilator, supplemental oxygen. Yuriy Welch M.D. Pulmonary and Critical Care Medicine * Eli Urrutia - 02/16/2020 12:27 PM EDT Echo competed at the bedside. * Darío Guzman OT - 02/16/2020 11:45 AM EDT Occupational Therapy Occupational Therapy Initial Assessment Date: 02/16/2020 Patient Name: Samreen Dawson : 1955 Date of Service: 02/16/2020 Discharge Recommendations: No therapy recommended at discharge. OT Equipment Recommendations Other: CTA Assessment Performance deficits / Impairments: Decreased functional mobility ;Decreased endurance;Decreased high-level IADLs Prognosis: Good Decision Making: Medium Complexity OT Education: OT Role;Plan of Care;Energy Conservation REQUIRES OT FOLLOW UP: Yes Activity Tolerance Activity Tolerance: Patient Tolerated treatment well;Patient limited by fatigue Safety Devices Safety Devices in place: Yes Type of devices: All fall risk precautions in place;Call light within reach;Gait belt;Left in chair Restraints Initially in place: No Patient Diagnosis(es): There were no encounter diagnoses. has a past medical history of Aortic stenosis, Asthma, Blood circulation, collateral, Cerebral artery occlusion with cerebral infarction (HCC), CHF (congestive heart failure) (HCC), COPD (chronic obstructive pulmonary disease) (HCC), Decreased cardiac ejection fraction, Diabetes mellitus (HCC), GERD (gastroesophageal reflux disease), H/O echocardiogram, Hyperlipidemia, Hypertension, and Status post transesophageal echocardiogram ([facility]IA). has a past surgical history that includes pacemaker placement (Left, 09/2017); Cardiac surgery (03/2018); Atrial ablation surgery (08/2018); Tonsillectomy; Colonoscopy; Colonoscopy (N/A, 01/26/2020); and Upper gastrointestinal endoscopy (01/26/2020). Restrictions Restrictions/Precautions Restrictions/Precautions: Cardiac, General Precautions, Fall Risk Required Braces or Orthoses?: No Position Activity Restriction Other position/activity restrictions: Bathroom privileges with A Subjective General Patient assessed for rehabilitation services?: Yes Family / Caregiver Present: No Diagnosis: Resp failure, TAVR, SOB Patient Currently in Pain: Denies Pain Assessment Pain Assessment: 0-10 Pain Level: 0 Vital Signs Patient Currently in Pain: Denies Social/Functional History Social/Functional History Lives With: Spouse Type of Home: Apartment Home Layout: One level Home Access: Level entry Bathroom Shower/Tub: Tub/Shower unit Bathroom Toilet: Standard Bathroom Equipment: Grab bars in shower, Shower chair Home Equipment: Oxygen(On 3L Home O2) Receives Help From: Family ADL Assistance: Independent Homemaking Assistance: Independent Homemaking Responsibilities: Yes Ambulation Assistance: Independent Transfer Assistance: Independent Active Telephone Betting Clerk: Yes Mode of Transportation: Car Occupation: Retired Leisure & Hobbies: painting/crafts Additional Comments: Spouse has own health concerns per pt Objective Vision: Impaired Vision Exceptions: Wears glasses for reading Hearing: Within functional limits Orientation Overall Orientation Status: Within Functional Limits Observation/Palpation Posture: Good Balance Sitting Balance: Independent Standing Balance: Modified independent Standing Balance Time: 15 min Activity: Pt stood bedside, in shower, at toilet, func mob to/func mob Functional Mobility Functional - Mobility Device: No device Activity: To/from bathroom Assist Level: Supervision Functional Mobility Comments: No major LOB noted, pt close to baseline, 3L O2, CTA Toilet Transfers Toilet - Technique: Ambulating Equipment Used: Standard toilet Toilet Transfer: Modified independent Tub Transfers Tub - Transfer To: Shower seat with back Tub - Technique: Ambulating Tub Transfers: Independent ADL Feeding: Independent Grooming: Modified independent UE Bathing: Modified independent LE Bathing: Supervision UE Dressing: Supervision LE Dressing: Supervision Toileting: Stand by assistance Additional Comments: Pt sat/stood for full ADL showering activit ythis date, 3L O2 left on which isbaseline, no major LOB or SOB noted, pt sat on toilet x2 for successful urination this date, stood sinkside for hand-washing task Tone RUE RUE Tone: Normotonic Tone LUE LUE Tone: Normotonic Coordination Movements Are Fluid And Coordinated: Yes Bed mobility Supine to Sit: Unable to assess Sit to Supine: Unable to assess Scooting: Modified independent Transfers Sit to stand: Modified independent Stand to sit: Independent Cognition Overall Cognitive Status: WFL Sensation Overall Sensation Status: WFL LUE AROM (degrees) LUE AROM : WFL RUE AROM (degrees) RUE AROM : WFL LUE Strength Gross LUE Strength: WFL L Hand General: 5/5 RUE Strength Gross RUE Strength: WFL R Hand General: 5/5 Plan Plan Times per week: 1-2 sessions AM-PAC Score AM-PAC Inpatient Daily Activity Raw Score: 21 (02/16/201137) AM-PAC Inpatient ADL T-Scale Score : 44.27 (02/16/201137) ADL Inpatient CMS 0-100% Score: 32.79 (02/16/201137) ADL Inpatient CMS G-Code Modifier : CJ (02/16/201137) Goals Short term goals Time Frame for Short term goals: Pt will by discharge Short term goal 1: demo good safety awareness during func mob around room (I) Short term goal 2: demo EC/WS tech's during func activity with 1 vc Short term goal 3: demo bending/reaching func activity while standing with mod I Short term goal 4: demo LB ADL bathing/dressing activity (I) Therapy Time Individual Concurrent Group Co-treatment Time In 0900 Time Out 0934 Minutes 34 Timed Code Treatment Minutes: 30 Minutes Darío Guzman OTR/L * Elsie Watson, PT - 02/16/2020 9:04 AM EDT Physical Therapy Facility/Department: [facility] 1 Initial Assessment NAME: Samreen Dawson : 1955 Date of Service: 02/16/2020 Pt admitted for TAVR, done 02/15/20 Discharge Recommendations: No further therapy required at discharge. PT Equipment Recommendations Equipment Needed: (TBD) Assessment Pt alert, cooperative, up in chair upon PT arrival and eager to move. One episode significant LOB when turning to sit in the chair requiring min A to correct. Pt denies balance issues at baseline Body structures, Functions, Activity limitations: Decreased functional mobility ;Decreased endurance;Decreased balance Prognosis: Good Decision Making: Medium Complexity PT Education: Goals;PT Role;Plan of Care;Energy Conservation;General Safety;Gait Training;Disease Specific Education;Functional Mobility Training;Injury Prevention Barriers to Learning: none REQUIRES PT FOLLOW UP: Yes Activity Tolerance Activity Tolerance: Patient limited by fatigue;Patient limited by endurance Patient Diagnosis(es): There were no encounter diagnoses. has a past medical history of Aortic stenosis, Asthma, Blood circulation, collateral, Cerebral artery occlusion with cerebral infarction (HCC), CHF (congestive heart failure) (HCC), COPD (chronic obstructive pulmonary disease) (HCC), Decreased cardiac ejection fraction, Diabetes mellitus (HCC), GERD (gastroesophageal reflux disease), H/O echocardiogram, Hyperlipidemia, Hypertension, and Status post transesophageal echocardiogram (ARIA). has a past surgical history that includes pacemaker placement (Left, 09/2017); Cardiac surgery (03/2018); Atrial ablation surgery (08/2018); Tonsillectomy; Colonoscopy; Colonoscopy (N/A, 01/26/2020); and Upper gastrointestinal endoscopy (01/26/2020). Restrictions Restrictions/Precautions Restrictions/Precautions: Cardiac, General Precautions, Fall Risk, Up as Tolerated Required Braces or Orthoses?: No Vision/Hearing Vision: Within Functional Limits Hearing: Within functional limits Subjective General Patient assessed for rehabilitation services?: Yes Response To Previous Treatment: Not applicable Family / Caregiver Present: No Follows Commands: Within Functional Limits Pain Screening Patient Currently in Pain: Denies Orientation Orientation Overall Orientation Status: Within Normal Limits Social/Functional History Social/Functional History Lives With: Significant other Type of Home: Apartment Home Layout: One level Home Access: Level entry Home Equipment: Oxygen Receives Help From: Family ADL Assistance: Independent Homemaking Assistance: Independent Homemaking Responsibilities: Yes Ambulation Assistance: Independent Transfer Assistance: Independent Active Telephone Betting Clerk: No Objective Observation/Palpation Posture: Good AROM RLE (degrees) RLE AROM: WFL AROM LLE (degrees) LLE AROM : WFL AROM RUE (degrees) RUE AROM : WFL AROM LUE (degrees) LUE AROM : WFL Strength RLE Strength RLE: WFL Strength LLE Strength LLE: WFL Strength RUE Strength RUE: WFL Strength LUE Strength LUE: WFL Tone RLE RLE Tone: Normotonic Tone LLE LLE Tone: Normotonic Motor Control Gross Motor?: WFL Sensation Overall Sensation Status: WFL Bed mobility Rolling to Left: Modified independent Supine to Sit: Modified independent Transfers Sit to Stand: Independent Stand to sit: Independent Stand Pivot Transfers: Independent Ambulation Ambulation?: Yes Ambulation 1 Surface: level tile Device: No Device Other Apparatus: O2(3L) Assistance: Supervision Quality of Gait: slow, one standing rest break; one significant LOB when turning to sit in the chair Gait Deviations: Slow Deja;Increased HUEY Distance: 300'x1 Stairs/Curb Stairs?: No Balance Posture: Good Sitting - Static: Good Sitting - Dynamic: Good Standing - Static: Good Standing - Dynamic: Fair Plan Plan Times per week: 5 visits weekly Times per day: Daily Current Treatment Recommendations: Balance Training, Functional Mobility Training, Transfer Training, Endurance Training, Gait Training, Safety Education & Training Safety Devices Type of devices: Call light within reach, Gait belt, Patient at risk for falls, Left in chair, Nurse notified Restraints Initially in place: No AM-PAC Score AM-PAC Inpatient Mobility without Stair Climbing Raw Score : 17 (02/16/20906) AM-PAC Inpatient without Stair Climbing T-Scale Score : 48.47 (02/16/20906) Mobility Inpatient CMS 0-100% Score: 32.72 (02/16/20906) Mobility Inpatient without Stair CMS G-Code Modifier : CJ (02/16/20906) Goals Short term goals Time Frame for Short term goals: 3-4 visits Short term goal 1: independent gait without device x 300' Short term goal 2: independent transfers without LOB when changing directions Patient Goals Patient goals : be able to walk farther Therapy Time Individual Concurrent Group Co-treatment Time In 0741 Time Out 0810 Minutes 29 Walter Zimmerman, PT * Jw Phelan RN - 02/16/2020 8:[address] Brewer of Pts resulted potassium lab value this morning. Pt was restarted on home dose of 40mg PO Lasix. Pt also takes 20meq potassium extended release tablets at home which were not restarted. Orders received to restart home potassium medication. * Paresh Brewer MD - 02/16/2020 7:35 AM EDT [facility] Office: [phone] Arnie Khan DO, Jose D Duran DO, Mervin Melo DO, Federico Hanson DO, Lexii Kwon MD, Aisha Carrillo MD, Oli Stone MD, Mahogany Urbina MD, Tor Gonzalez MD, Windy Perkins MD, MD Aditya, Tucker Grady MD, Mark Rodriguez MD, Fausto Cordova DO, lGenna Garcia MD, Nicolas Bingham MD, Henry Ruano DO, Paresh Brewer MD, Kathleen Lee DO, Bruce Cleary MD, MD Rafael, Peggy Chu CNP, Cindy Ruiz CNP, Estee Euceda, PLACEMENT ASSISTANT, Bernice Mckinnon, SUPPLY AIDE,Dandre Shay, PLACEMENT ASSISTANT, More Hua PLACEMENT ASSISTANT, Tatiana Broderick, PLACEMENT ASSISTANT, Valencia Bell, PLACEMENT ASSISTANT, Luis Jalloh CNP, Darío Mayorga PA-C, Teresa De La Rosa, SOUTH, Julinae Hyman, PLACEMENT ASSISTANT, Sammie Almonte, PLACEMENT ASSISTANT, Sally Brandt, PLACEMENT ASSISTANT, Neisha Kerr, PLACEMENT ASSISTANT, Jovana Watt, PLACEMENT ASSISTANT [facility] IN-PATIENT SERVICE [facility] Progress Note 02/16/2020 7:35 AM Name: Samreen Dawson Acct: [id number] Room: [address] [place] [address] Day: 3 Admit Date: 02/13/2020 9:56 PM PCP: MANJU PRESTON Code Status: Full Code Subjective: C/C: No chief complaint on file. Shortness of breath Interval History Status: improved. Patient seen and examined sitting up in chair this morning. Patient was extubated yesterday. No acute issues overnight. No fevers, heart rate has been between 70 and 80, blood pressure overall stable. Glucose well controlled. Currently on 3 L nasal cannula saturating 96%. Creatinine trending down as well as BUN. BUN 30-41-40-39. Creatinine 1.37-1.61-1.54-1.18. Hemoglobin also stable around 8.0. Patient denies any headache, nausea, dizziness, weakness in upper and lower extremity, or pain around groin site. Brief History: 62-year-old female presents with respiratory failure worsening shortness of breath placed on BiPAP however continued of poor oxygenation and was intubated and transferred to [facility] ICU. Patient has history of COPD requiring 3 L of oxygen per minute and complicated by systolic CHF due to severe aortic stenosis. Patient underwent TAVR procedure on 02/15/2020. Patient was extubated 02/15/2020. Review of Systems: Constitutional: negative for chills, fevers, sweats Respiratory: negative for cough, dyspnea on exertion, shortness of breath, wheezing Cardiovascular: negative for chest pain, chest pressure/discomfort, lower extremity edema, palpitations Gastrointestinal: negative for abdominal pain, constipation, diarrhea, nausea, vomiting Neurological: negative for dizziness, headache Medications: Allergies: Allergies Allergen Reactions Benadryl [Diphenhydramine] Anaphylaxis Codeine Anaphylaxis Current Meds: Scheduled Meds: tiotropium 2 puff Inhalation Daily sodium chloride flush 10 mL Intravenous 2 times per day clopidogrel 75 mg Oral Daily insulin lispro 0-12 Units Subcutaneous Q4H sodium chloride flush 10 mL Intravenous 2 times per day sennosides-docusate sodium 1 tablet Oral BID aspirin 81 mg Oral Daily atorvastatin 80 mg Oral Daily FLUoxetine 20 mg Oral Daily pantoprazole 40 mg Intravenous Daily furosemide 20 mg Intravenous Daily Continuous Infusions: sodium chloride 75 mL/hr at 02/15/20 1120 dextrose propofol Stopped (02/15/20 1620) heparin (PORCINE) Infusion Stopped (02/15/20 0910) PRN Meds: albuterol, sodium chloride flush, acetaminophen, labetalol, glucose, dextrose, glucagon (rDNA), dextrose, sodium chloride flush, acetaminophen OR acetaminophen, promethazine OR ondansetron, magnesium hydroxide, fentanNYL OR fentanNYL, heparin (porcine), heparin (porcine) Data: Past Medical History: has a past medical history of Aortic stenosis, Asthma, Blood circulation, collateral, Cerebral artery occlusion with cerebral infarction ([facility]), CHF (congestive heart failure) ([facility]), COPD (chronic obstructive pulmonary disease) ([facility]), Decreased cardiac ejection fraction, Diabetes mellitus (HCC), GERD (gastroesophageal reflux disease), H/O echocardiogram, Hyperlipidemia, Hypertension, and Status post transesophageal echocardiogram (ARIA). Social History: reports that she has quit smoking. Her smoking use included cigarettes. She smoked 1.00 pack per day. She has never used smokeless tobacco. She reports previous alcohol use. She reports that she does not use drugs. Family History: No family history on file. Vitals: BP (!) 140/62 Pulse 71 Temp 97.9 F (36.6 C) (Oral) Resp 20 Ht 5' 6 (1.676 m) Wt 219 lb 9.3 oz (99.6 kg) SpO2 98% BMI 35.44 kg/m Temp (24hrs), Av.8 F (36.6 C), Min:96.8 F (36 C), Max:98.3 F (36.8 C) Recent Labs 02/15/20 1635 02/15/20 2001 02/16/20 0033 02/16/20 0416 POCGLU 115* 169* 129* 121* I/O (24Hr): Intake/Output Summary (Last 24 hours) at 02/16/2020 0735 Last data filed at 02/16/2020 0536 Gross per 24 hour Intake 1863 ml Output 1975 ml Net -112 ml Labs: Hematology: Recent Labs 02/14/20 1020 02/15/20 0544 10/07171702/15/20 2334 02/16/20412 WBC 10.2 -- 14.1* -- -- -- 9.8 RBC 3.48* -- 3.43* -- -- -- 3.19* HGB 8.5* < > 8.7* < > 7.9* 7.8* 8.0* HCT 30.5* < > 31.5* < > 28.0* 27.5* 28.5* MCV 87.6 -- 91.8 -- -- -- 89.3 MCH 24.4* -- 25.4 -- -- -- 25.1* MCHC 27.9* -- 27.6* -- -- -- 28.1* RDW 16.5* -- 16.8* -- -- -- 17.0* PLT 222 -- 246 -- -- -- 198 MPV 11.8 -- 11.7 -- -- -- 11.0 < > = values in this interval not displayed. Chemistry: Recent Labs 02/14/20 0443 02/15/20 0544 02/15/20 1124 02/15/20 1140 02/15/20 1312 02/15/208 02/16/20412 NA 141 139 -- -- 140 -- 138 K 4.2 4.3 -- -- 3.7 -- 4.0 CL 99 98 -- -- 99 -- 100 CO2 25 27 -- -- 30 -- 28 GLUCOSE 188* 163* -- -- 145* -- 121* BUN 30* 41* -- -- 40* -- 39* CREATININE 1.37* 1.61* 1.96* -- 1.54* -- 1.18* MG 2.0 2.2 -- -- -- -- 2.3 ANIONGAP 17 14 -- -- 11 -- 10 LABGLOM 39* 32* 26* -- 34* -- 46* GFRAA 47* 39* -- -- 41* -- 56* CALCIUM 9.4 9.7 -- -- 9.3 -- 9.0 CAION 1.19 1.25 -- -- -- -- 1.18 PHOS 3.8 4.5 -- -- -- -- 3.1 TROPHS 91* 163* -- 204* -- 240* -- Recent Labs 02/15/20 1124 02/15/20 1334 02/15/20 1635 02/15/20 2001 02/16/20 0033 02/16/20 0416 POCGLU 169* 143* 115* 169* 129* 121* ABG: Lab Results Component Value Date POCPH 7.340 02/15/2020 PH 7.40 02/02/2020 POCPCO2 59.7 02/15/2020 PCO2 68 02/02/2020 POCPO2 67.3 02/15/2020 PO2 72 02/02/2020 POCHCO3 32.2 02/15/2020 HCO3 42 02/02/2020 NBEA NOT REPORTED 02/15/2020 PBEA 5 02/15/2020 BHM2NRZ 34 02/15/2020 BPSB5XLH 91 02/15/2020 O2SAT 93 02/02/2020 FIO2 40.0 02/15/2020 No results found for: SPECIAL No results found for: CULTURE Radiology: Xr Chest Portable Result Date: 02/15/2020 Stable support lines/leads Improvement in still hory-hn-zkktjtzp vascular congestion Decrease in still moderate left basilar opacity related to combined pleural-parenchymal process Xr Chest Portable Result Date: 02/14/2020 1. Stable left basilar atelectasis plus or minus mild pleural effusion. 2. Suspected moderate pulmonary interstitial edema with overlying multifocal ill- defined consolidation suggesting alveolar edema. 3. Mild cardiomegaly. Xr Abdomen For Ng/og/ne Tube Placement Result Date: 02/14/2020 Enteric tube ends in the mid gastric body. Cardiomegaly with left-sided pleural effusion and bilateral lower lung airspace opacities noted. Multilevel thoracolumbar spondylosis. Physical Examination: General appearance: alert, cooperative and no distress Mental Status: oriented to person, place and time and normal affect Lungs: Crackles bilaterally more pronounced on the right side, mild respiratory wheezing Heart: regular rate and rhythm, no murmur Abdomen: soft, nontender, nondistended, normal bowel sounds, no masses, hepatomegaly, splenomegaly Extremities: no edema, redness, tenderness in the calves, no hematoma appreciated around groin site. Skin: no gross lesions, rashes, induration Assessment: Hospital Problems Last Modified POA * (Principal) Acute on chronic combined systolic and diastolic congestive heart failure ([facility]) 02/15/2020 Yes Severe aortic stenosis 02/15/2020 Yes Aortic stenosis with bicuspid valve 02/14/2020 Yes Gastroesophageal reflux disease 02/15/2020 Yes Stage 4 very severe COPD by GOLD classification ([facility]) 02/14/2020 Yes Acute respiratory failure with hypoxia ([facility]) 02/13/2020 Yes Class 2 severe obesity due to excess calories with serious comorbidity and body mass index (BMI) of35.0 to 35.9 in adult ([facility]) 02/14/2020 Yes Plan: 1. Acute on chronic respiratory failure secondary to fluid overload pulmonary edema. Status post TAVR 02/15/2020. Lasix changed to 40 mg p.o., potassium 20 mEq started. Echo pending. Appreciate cardiology recommendations. Continue with aspirin, Lipitor, Plavix 2. Astorga has been removed, creatinine is trending downwards 3. Follow-up PT/OT 4. Home inhalers of Spiriva restarted, albuterol nebulizer as needed. 5. Prediabetic. HbA1c 6.3 on 12/12/2019. New HbA1c has improved, will continue to check glucose Paresh Brewer MD 02/16/2020 7:35 AM * Michelle Blackwell RN - 02/16/2020 12:10 AM EDT Recording Clerk contacted cardiology regarding hemoglobin result. Pt had order placed around 0930 for transfusion Hg 7-7.9. Hg has been trended: 02/14 0825 Hg 8.0, 02/14 1718 Hg 7.9, 02/14 2334 Hg 7.8. Recording Clerk instructed to hold off on transfusion and monitor morning labs. 0530: Recording Clerk updated cardiology regarding morning hemoglobin 8.0. No transfusion needed. Will continue to monitor. * Jw Phelan RN - 02/15/2020 5:39 PM EDT Notified brake adjuster Dr. Alfaro of Pts resulted H&H and current trend of vital signs. Orders received to have an H&H drawn at 2330 and to remove radial art line. * Dandre Sarkar RCP - 02/15/2020 4:23 PM EDT Order obtained for extubation. SpO2 of 100 on 40% FiO2. Patient extubated and placed on 3 liters/min via nasal cannula. Post extubation SpO2 is 97% with HR 79 bpm and RR 23 breaths/min. Patient had strong cough that was productive of clear , white and mucoid sputum. Extubation Well tolerated by patient.. Breath Sounds: clear/diminished throughout. Dandre Sarkar 4:26 PM * Jw Phelan RN - 02/15/2020 3:[address] Welch at bedside notified of recent gasses, CXR completion and that Pt has been cpaping since 1314. Orders received to extubate Pt, awaiting response from RT to extubate. * Yuriy Welhc MD - 02/15/2020 3:57 PM EDT PULMONARY & CRITICAL CARE MEDICINE PROGRESS NOTE Patient: Samreen Dawson Admit date: 02/13/2020 Primary Care Physician: MANJU PRESTON Consulting Physician: Paresh Brewer MD CODE Status: Full Code SUBJECTIVE CHIEF COMPLAINT/REASON FOR INITIAL CONSULT: Acute respiratory failure BRIEF HOSPITAL COURSE: The patient is a 64 y.o. female with history of COPD, diastolic CHF, severe aortic stenosis was admitted with worsening shortness of breath. She was intubated at outside facility and transected secondary to further management. She underwent TAVR earlier today. At the time of my evaluation patient was on mechanical ventilation. She was awake and alert and following commands. She was put on CPAP trial which was tolerated well and patient was subsequently extubated without any immediate complications. REVIEW OF SYSTEMS: Unobtainable from patient due to sedation/mechanical ventilation OBJECTIVE Ventilator Settings: Vent Information $Ventilation: $Subsequent Day Skin Assessment: Clean, dry, & intact Suction Catheter Diameter: 14 Equipment ID: [id number] Equipment Changed: (S) HME Vent Type: 980 Vent Mode: AC/VC+ Vt Ordered: 480 mL Rate Set: 16 bmp FiO2 : 40 % SpO2: 97 % SpO2/FiO2 ratio: 240 Sensitivity: 5 PEEP/CPAP: 5 I Time/ I Time %: 0.9 s Humidification Source: HME Nitric Oxide/Epoprostenol In Use?: No VITAL SIGNS: LAST- BP (!) 132/59 Pulse 79 Temp 96.8 F (36 C) (Oral) Resp 20 Ht 5' 6 (1.676 m) Wt 207 lb 7.3oz (94.1 kg) SpO2 97% BMI 33.48 kg/m 8-24 HR RANGE- TEMP Temp Av.9 F (36.6 C) Min: 96.8 F (36 C) Max: 98.5 F (36.9 C) BP Systolic (24hrs), Av , Min:96 , Max:135 Diastolic (24hrs), Av, Min:47, Max:89 PULSE Pulse Av.3 Min: 68 Max: 99 RR Resp Av.3 Min: 0 Max: 28 O2 SAT SpO2 Av.3 % Min: 73 % Max: 100 % OXYGEN DELIVERY No data recorded SYSTEMIC EXAMINATION: General appearance - Mechanically ventilated, obese Mental status - sedated Eyes - pupils equal and reactive, sclera anicteric Mouth - mucous membranes moist, pharynx normal without lesions Neck - supple, no significant adenopathy, carotids upstroke normal bilaterally, no bruits Chest -breath sounds but diminished in bases, occasional crackles Heart - normal rate, regular rhythm, normal S1, S2, no murmurs, rubs, clicks or gallops Abdomen - soft, nontender, nondistended, no masses or organomegaly Neurological - DTR's normal and symmetric, motor and sensory grossly normal bilaterally Extremities - peripheral pulses normal, no pedal edema, no clubbing or cyanosis Skin - normal coloration and turgor, no rashes, no suspicious skin lesions noted DATA REVIEW Medications: Current Inpatient Scheduled Meds: sodium chloride flush 10 mL Intravenous 2 times per day [START ON 02/16/2020] clopidogrel 75 mg Oral Daily insulin lispro 0-12 Units Subcutaneous Q4H sodium chloride flush 10 mL Intravenous 2 times per day sennosides-docusate sodium 1 tablet Oral BID aspirin 81 mg Oral Daily atorvastatin 80 mg Oral Daily FLUoxetine 20 mg Oral Daily pantoprazole 40 mg Intravenous Daily furosemide 20 mg Intravenous Daily Continuous Infusions: sodium chloride 75 mL/hr at 02/15/20 1120 dextrose propofol 20 mcg/kg/min (02/15/20 1414) heparin (PORCINE) Infusion Stopped (02/15/20 0910) INPUT/OUTPUT: In: 855.4 [I.V.:805.4; NG/GT:50] Out: 870 [Urine:870] Date 02/15/20 0000 - 02/15/20 235 Shift 3095-1727 7516-4596 6665-7752 24 Hour Total INTAKE I.V.(mL/kg) 205.4(2.2) 600(6.4) 805.4(8.6) NG/GT(mL/kg) 50(0.5) 50(0.5) Shift Total(mL/kg) 205.4(2.2) 650(6.9) 855.4(9.1) OUTPUT Urine(mL/kg/hr) 230(0.3) 640 870 Shift Total(mL/kg) 230(2.4) 640(6.8) 870(9.2) Weight (kg) 94.1 94.1 94.1 94.1 LABS:- ABG: Recent Labs 02/13/20 2350 02/14/20 0404 02/15/20 0416 02/15/20 1124 02/15/20 1334 POCPH 7.340* 7.363 7.422 7.348* 7.340* POCPCO2 65.5* 54.8* 50.6* 60.7* 59.7* POCPO2 65.0* 64.9* 79.4* 92.1 67.3* POCHCO3 35.4* 31.2* 32.9* 33.3* 32.2* TLOZ5SBC 90* 91* 96 96 91* CBC: Recent Labs 02/14/20 0443 02/14/20 1020 02/15/20 0035 02/15/20 0544 02/15/20 0825 WBC 10.1 10.2 -- -- 14.1* -- HGB 8.6* 8.5* < > 8.1* 8.7* 8.0* HCT 31.5* 30.5* < > 28.4* 31.5* 26.3* MCV 90.5 87.6 -- -- 91.8 -- PLT 242 222 -- -- 246 -- LYMPHOPCT 9* -- -- -- 9* -- RBC 3.48* 3.48* -- -- 3.43* -- MCH 24.7* 24.4* -- -- 25.4 -- MCHC 27.3* 27.9* -- -- 27.6* -- RDW 16.5* 16.5* -- -- 16.8* -- < > = values in this interval not displayed. BMP: Recent Labs 02/14/20 0443 02/15/20 0544 02/15/20 1124 02/15/20 1312 NA 141 139 -- 140 K 4.2 4.3 -- 3.7 CL 99 98 -- 99 CO2 25 27 -- 30 BUN 30* 41* -- 40* CREATININE 1.37* 1.61* 1.96* 1.54* GLUCOSE 188* 163* -- 145* PHOS 3.8 4.5 -- -- Liver Function Test: No results for input(s): PROT, LABALBU, ALT, AST, GGT, ALKPHOS, BILITOT in the last 72 hours. Amylase/Lipase: No results for input(s): AMYLASE, LIPASE in the last 72 hours. Coagulation Profile: Recent Labs 02/14/20 1729 02/15/20 0035 02/15/20 0825 APTT 28.3 35.5* 33.6* Cardiac Enzymes: No results for input(s): CKTOTAL, CKMB, CKMBINDEX, TROPONINI in the last 72 hours. Lactic Acid: No results found for: LACTA BNP: No results found for: BNP D-Dimer: Lab Results Component Value Date DDIMER 0.99 (H) 07/18/2019 Others: Lab Results Component Value Date TSH 1.96 08/26/2019 Lab Results Component Value Date SEDRATE 29 (H) 01/31/2020 CRP 2.35 (H) 01/31/2020 No results found for: LABURIC, URICACID Lab Results Component Value Date IRON 30 (L) 01/25/2020 FERRITIN 104 01/25/2020 No results found for: SPEP, UPEP No results found for: PSA, CEA, CA125, CV9017, CA199 Microbiology: Pathology: Radiology Reports: XR CHEST PORTABLE Final Result Stable support lines/leads Improvement in still qdbk-kw-sgkwjwre vascular congestion Decrease in still moderate left basilar opacity related to combined pleural-parenchymal process XR ABDOMEN FOR NG/OG/NE TUBE PLACEMENT Final Result Enteric tube ends in the mid gastric body. Cardiomegaly with left-sided pleural effusion and bilateral lower lung airspace opacities noted. Multilevel thoracolumbar spondylosis. XR CHEST PORTABLE Final Result 1. Stable left basilar atelectasis plus or minus mild pleural effusion. 2. Suspected moderate pulmonary interstitial edema with overlying multifocal ill-defined consolidation suggesting alveolar edema. 3. Mild cardiomegaly. Echocardiogram: Results for orders placed during the hospital encounter of 07/18/19 [id number] COMPLETE Narrative Summary Global left ventricular systolic function appears preserved with an estimated ejection fraction of 60%. The left ventricular cavity size is within normal limits and the left ventricular wall thickness is severely increased. No definite specific wall motion abnormalities were identified. Severe aortic stenosis with peak and mean gradient of 70 and 49 mmHg. Mitral annular calcification is seen with mean gradient of 3.8 mmHg. No significant mitral regurgitation. Normal tricuspid valve structure with mild tricuspid regurgitation. Evidence of mild (grade I) diastolic dysfunction is seen. No prior studies were available for comparison. Consider corrective aortic valve surgery/intervention if clinically indicated. Cardiac Catheterization: No results found for this or any previous visit. ASSESSMENT AND PLAN Assessment: // Acute respiratory failure, status post extubation // Acute pulmonary edema // Congestive cardiac failure // Severe aortic stenosis, status post TAVR // Gastroesophageal reflux disease // Very severe COPD // Obesity Plan: I personally interviewed/examined the patient; reviewed interval history, interpreted all availableradiographic and laboratory data at the time of service. ? Patient was on sedation and mechanical ventilation ? She underwent TAVR procedure earlier this morning ? Patient remains hemodynamically stable ? She tolerated spontaneous breathing trial and was extubated without any immediate complications ? Will recommend nocturnal BiPAP ? Continue supplemental oxygen to keep oxygen saturations greater than 92% ? Continue antiplatelet, anticoagulation, statins, and beta blockers as per cardiology ? Continue pulmonary toilet, aspiration precautions and bronchodilators ? Continue with the diuresis ? Continue to monitor I/O with a goal of even/negative fluid balance ? Stress ulcer prophylaxis ? Continue to monitor CBC, coagulation profile, transfuse as indicated ? Chemical DVT prophylaxis ? Antimicrobials reviewed; continue vancomycin ? Glycemic control appropriate ? Skin/wound care reviewed with the nursing staff ? Physical/occupational therapy Critical care time of greater than 35 minutes was spent (excluding procedures), in coordination of care during bedside rounds and discussion of patient care in detail, and recommendations of the teamwere adopted in the plan. Necessity of all invasive devices was also confirmed. Yuriy Welch M.D. Pulmonary and Critical Care Medicine 02/15/2020, 3:57 PM Please note that this chart was generated using voice recognition [employer] dictation software. Although every effort was made to ensure the accuracy of this automated airborne operations manager, some errors in airborne operations manager may have occurred. * Teresa Camacho RD, LD - 02/15/2020 3:47 PM EDT Comprehensive Nutrition Assessment Type and Reason for Visit: Reassess, Consult(TF ordering/management) Nutrition Recommendations/Plan: Start Tube Feeding-suggest Low Jose Elias, High Pro formula with goal rateof 45 ml/hr while on propofol at current rate. This will provide a total of 1402 kcal and 95 g pro/day. Will monitor TF tolerance/adequacy. Nutrition Assessment: S/p TVAR. Pt remains on vent, Propofol at 12.2 ml/hr =322 kcal/day. Consultedfor TF ordering/management. Meds/Labs reviewed. Malnutrition Assessment: Malnutrition Status: At risk for malnutrition Context: Acute Illness Findings of the 6 clinical characteristics of malnutrition: Energy Intake: Unable to assess Weight Loss: No significant weight loss per EHR Body Fat Loss: No significant body fat loss Muscle Mass Loss: No significant muscle mass loss Fluid Accumulation: No significant fluid accumulation Senior Accounts Payable Specialist Strength: Not Performed Estimated Daily Nutrient Needs: Energy (kcal): 1400 kcal/day; Weight Used for Energy Requirements: Admission Protein (g): 90 g pro/day; Weight Used for Protein Requirements: Poplar(1.5) Current Nutrition Therapies: Additional Calorie Sources: propofol at 12.2 ml/hr =322 kcal/day Anthropometric Measures: Height: 5' 6 (167.6 cm) Current Body Weight: 207 lb 7.3 oz (94.1 kg) Poplar Body Weight: 130 lbs; % Poplar Body Weight 159% BMI: 33.5 BMI Categories: Obese Class 2 (BMI 35.0 -39.9) Nutrition Diagnosis: Inadequate oral intake related to impaired respiratory function as evidenced by NPO or clear liquidstatus due to medical condition Nutrition Interventions: Food and/or Nutrient Delivery: Start Tube Feeding-suggest Low Jose Elias, High Pro formula with goal rate of 45 ml/hr while on propofol at current rate. This will provide a total of 1402 kcal and 95 g pro/day Nutrition Education/Counseling: No recommendation at this time Coordination of Nutrition Care: Continued Inpatient Monitoring Goals: meet 75-100% of estimated nutrition needs -progressing towards goal Nutrition Monitoring and Evaluation: Food/Nutrient Intake Outcomes: Enteral Nutrition Intake/Tolerance Physical Signs/Symptoms Outcomes: Biochemical Data, Nutrition Focused Physical Findings, Skin, Weight, Fluid Status or Edema Contact: Addendum [id number]: spoke with RN who reports plan to extubate today. Tube feeding no longer needed; will start on a cardiac diet. Will f/u with PO tolerance/intake. * Jw Phelan RN - 02/15/2020 2:[address] Brewer of Pts K resulting at 3.7 on recent BMP. Orders received to give 20meq IVPB potassium. * Parth Cowan MD - 02/15/2020 12:03 PM EDT Critical care team - Resident sign-out to medicine service Date and time: 02/15/2020 12:03 PM Patient's name: Samreen Dawson Patient's account/billing number: [id number] Patient's Date of : 1955 Age: 64 y.o. Date of Admission: 02/13/2020 9:56 PM Length of stay during current admission: 2 Primary Care Physician: MANJU PRESTON Code Status: Full Code Mode of physician to physician communication: [x] Via telephone [] In person Date and time of sign-out: 02/15/2020 12:03 PM Accepting Medicine team: IM Team intermed Accepting team's attending: Dr. Chris brewer Patient's current ICU Bed: 121 Patient's assigned bed on floor: 1006 [] Med-Surg Monitored [x] Step-down [] Psychiatry ICU [] Psych floor Reason for ICU admission: Acute respiratory failure ICU course summary: 64-year-old female with known history of severe aortic stenosis, evaluated outpatient for TAVR [facility] distress. Patient also has history of COPD on 3 Lof home oxygen. Initially patient was put on BiPAP but patient desaturated and was finally intubated and transferred to [facility]. Chest x-ray showed bilateral pleural effusions consistent with perihilar infiltrate. Initially patient was also started on antibiotics which were later discontinued. Patient received Lasix for diuresis. Cardiology evaluated the patient and took patient for emergency TAVR on 02/14. Patient transferred to cardiac ICU after procedure. Procedures during patient's ICU stay: TAVR procedure Current Vitals: BP (!) 96/51 Pulse 80 Temp 97.7 F (36.5 C) Resp 17 Ht 5' 6 (1.676 m) Wt 207 lb 7.3 oz (94.1 kg) SpO2 100% BMI 33.48 kg/m Cultures: Blood cultures: [] None drawn [] Negative [] Positive (Details: ) Urine Culture: [] None drawn [] Negative [] Positive (Details: ) Sputum Culture: [] None drawn [] Negative [] Positive (Details: ) Endotracheal aspirate: [] None drawn [] Negative [] Positive (Details: ) Consults: 1. Cardiology Assessment: Active Problems: Acute on chronic combined systolic and diastolic congestive heart failure (HCC) Aortic stenosis with bicuspid valve Stage 4 very severe COPD by GOLD classification ([facility]) Acute respiratory failure with hypoxia ([facility]) Class 2 severe obesity due to excess calories with serious comorbidity and body mass index (BMI) of35.0 to 35.9 in adult ([facility]) Resolved Problems: * No resolved hospital problems. * Recommended Follow-up: Follow-up after CABG as per cardiology Continue respiratory support for 24 hours after procedure Diuresis per cardiology, continue lasix 20mg Monitor kidney function Above mentioned assessment and plan was discussed by me with the admitting medicine resident. The medicine team assigned to the patient by medicine admitting resident will be following up the patientfrom now onwards on the floor. Parth Cowan M.D. Critical care resident, Department of Internal Medicine/ Critical care [facility]) 02/15/2020, 12:03 PM * Jw Phelan RN - 02/15/2020 11:10 AM EDT Report received from quality assurance qa lab analyst RN, Pt transferred to room 1006 via labor and delivery registered nurse RN. Bedside report received from Korina STALLINGS. * Rukhsana Pereira RN - 02/15/2020 9:00 AM EDT Pt plan to OR around 9 am. Heparin IV stopped at 0910 as documented and pt sent to OR with nurse, monitors, anesthesia after hand off given. 1100 typewriter tester informed that pt will remain in cardiac area room 1006. Report given to Olivia and all belongings given to Sheryl the business unit director to take to pt room. Those items included cell phone, host and hostess, wallet, purse, jewelery and one item of clothing. * Anai Pedraza MD - 02/14/2020 3:09 PM EDT Detailed discussion with patient regarding Tavr procedure tentatively planned for tomorrow. Patientis intubated but alert and able to comprehend and appropriately respond by nodding and writing. We discussed the risks and benefits of the procedure including infection, bleeding, dissection, stroke, pacemaker requirement, , cardiac arrest. Patient fully understood and agreed with the procedure. I also asked her if she wanted me to notify any family members and she replied in negative. Anai Pedraza MD brake adjuster * Teresa Camacho RD, LD - 02/14/2020 10:40 AM EDT Comprehensive Nutrition Assessment Type and Reason for Visit: Initial(vent) Nutrition Recommendations/Plan: Start nutrition as able. If TF needed, suggest Semi-elemental formula with goal rate of 45 ml/hr to provide 1296 kcal and 81 g pro/day. Nutrition Assessment: Pt admitted with respiratory failure, currently intubated. PMH includes: COPD, CHF, DM, GERD, Afib. Pt is currently NPO/without nutrition support. Meds/labs reviewed. Malnutrition Assessment: Malnutrition Status: At risk for malnutrition Context: Acute Illness Findings of the 6 clinical characteristics of malnutrition: Energy Intake: Unable to assess Weight Loss: No significant weight loss(per EHR) Body Fat Loss: No significant body fat loss Muscle Mass Loss: No significant muscle mass loss Fluid Accumulation: No significant fluid accumulation Senior Accounts Payable Specialist Strength: Not Performed Estimated Daily Nutrient Needs: Energy (kcal): 1400 kcal/day Protein (g): 90 g pro/day Current Nutrition Therapies: Diet NPO Effective Now Additional Calorie Sources: propofol at 6.1 mL/ba=339 kcal/day Anthropometric Measures: Height: 5' 6 (167.6 cm) Current Body Weight: 222 lb 7.1 oz (100.9 kg) Poplar Body Weight: 130 lbs; % Poplar Body Weight 171% BMI: 35.9 BMI Categories: Obese Class 2 (BMI 35.0 -39.9) Nutrition Diagnosis: Inadequate oral intake related to impaired respiratory function as evidenced by NPO or clear liquidstatus due to medical condition Nutrition Interventions: Food and/or Nutrient Delivery: Start nutrition as able. If TF needed, suggest Semi-elemental formula with goal rate of 45 ml/hr to provide 1296 kcal and 81 g pro/day. Nutrition Education/Counseling: No recommendation at this time Coordination of Nutrition Care: Continued Inpatient Monitoring Goals: meet 75-100% of estimated nutrition needs Nutrition Monitoring and Evaluation: Food/Nutrient Intake Outcomes: Diet Advancement/Tolerance Physical Signs/Symptoms Outcomes: Biochemical Data, Nutrition Focused Physical Findings, Skin, Weight Contact: * Henrietta Florez RN - 02/14/2020 8:34 AM EDT [employer] Associate Documentation Note Admission Dx: Acute respiratory failure with hypoxia (HCC) [J96.01] Past Medical History: has a past medical history of Aortic stenosis, Asthma, Blood circulation, collateral, Cerebral artery occlusion with cerebral infarction (HCC), CHF (congestive heart failure) (HCC), COPD (chronic obstructive pulmonary disease) (HCC), Decreased cardiac ejection fraction, Diabetes mellitus (HCC), GERD (gastroesophageal reflux disease), H/O echocardiogram, Hyperlipidemia, Hypertension, and Status post transesophageal echocardiogram (ARIA). Previous Testing: ARIA 09/01/2019: EF 55%, possible bicuspid AV, severe . CATH 09/01/2019: Mild to moderate single vessel disease involving the right coronary artery. Normal LVEDP. ECHO 07/20/2019: EF 60%, severe with peak gradient 70 mmHg and mean gradient 49 mmHg, grade I DD. Previous office/hospital visit: Dr. Brumfield 01/25/2020: Anemia GI blood loss Acute on chronic LV systolic/diastolic CHF, NYHA III EF 35% Non-obstructive CAD, 08/2019 Trop elevation related to anemia/CHF Plan -- 1. Lasix IV 40 mg IV BID 2. Add Aldactone 25 mg q day 3. Hold BB 4. Once respiratory status is clear, then proceed with colonoscopy, she is intermediate to high risk, advise anesthesia support 5. Trf to keep Hgb >8 6. No indication for cath given she just had cath, has no active CP, and the trop can be explained by her other issues 7. Hold IVF 8. May hold ASA 9. No TAVR till bleeding issues have become clear, no indication for valvuloplasty, she can be managed as CHF, and then once able to proceed with colonoscopy 10. Once GI bleed is resolved and GI has provided guidance regarding when anticoagulation can be given, she will have TAVR as outpatient REYES [employer] Dock Associate * Galdino Ley MD - 02/14/2020 8:18 AM EDT [facility] Cardiology Consult / H&P Today's Date: 02/14/2020 Patient Name: Samreen Dawson Date of admission: 02/13/2020 9:56 PM Patient's age: 64 y.o., 1955 Admission Dx: Acute respiratory failure with hypoxia ([facility]) [J96.01] Reason for Consult: Cardiac evaluation Requesting Physician: Victoriano Samaniego MD CHIEF COMPLAINT: Shortness of breath History Obtained From: patient, electronic medical record HISTORY OF PRESENT ILLNESS: A 62-year-old female with past medical history of COPD, chronic respiratory failure on 3 L at home,coronary artery disease status post stent, CHF on Lasix 40 mg daily, paroxysmal A. fib on diltiazemto 40 mg extended release, Lopressor 25 mg twice daily, history of pacemaker, severe aortic stenosis follow-up with Dr. brumfield for TAVR on February 19 was transferred to [facility] with complaints of shortness of breath. Patient was complaining of some rhinorrhea symptoms from past few days, called EMS,transferred to outlying facility, then placed on BiPAP. Ultimately patient required intubation for worsening respiratory failure. Was given breathing treatments with steroids and then patient was transferred to [facility]. X-ray was done which showed bilateral pulmonary infiltrates more on the rightside concerning for pulmonary edema. During my evaluation patient is wide awake off sedation, intubated. Patient shakes her head for runny nose, chest pain from past 2 days, 8 out of 10. Heart rate is in 80/min, normal sinus rhythm, blood pressure with systolic in 100 and diastolic in 60, troponin 91-91. Patient usual baseline is around 50s. EKG was done which showed T wave inversions in V4 V5 V6 with some ST depression. Patient hassimilar EKG findings in her old EKG from 02/04. Past Medical History: has a past medical history of Aortic stenosis, Asthma, Blood circulation, collateral, Cerebral artery occlusion with cerebral infarction (HCC), CHF (congestive heart failure) ([facility]), COPD (chronic obstructive pulmonary disease) ([facility]), Decreased cardiac ejection fraction, Diabetes mellitus (HCC), GERD (gastroesophageal reflux disease), H/O echocardiogram, Hyperlipidemia, Hypertension, and Status post transesophageal echocardiogram (ARIA). Past Surgical History: has a past surgical history that includes pacemaker placement (Left, 09/2017); Cardiac surgery (03/2018); Atrial ablation surgery (08/2018); Tonsillectomy; Colonoscopy; Colonoscopy (N/A, 01/26/2020); and Upper gastrointestinal endoscopy (01/26/2020). Home Medications: Prior to Admission medications Medication Sig Start Date End Date Taking? Authorizing Provider furosemide (LASIX) 40 MG tablet Take 1 tablet by mouth daily 02/03/20 Daniel Fischer MD midodrine (PROAMATINE) 10 MG tablet Take 1 tablet by mouth 3 times daily (with meals) Check you blood pressure daily. DO NOT take if blood pressure is GREATER than 130 02/03/20 03/04/20 Daniel Fischer MD potassium chloride (KLOR-CON M) 20 MEQ extended release tablet Take 1 tablet by mouth daily 02/03/20Daniel Fischer MD dilTIAZem (CARDIZEM CD) 240 MG extended release capsule Take 1 capsule by mouth daily HOLD for SBP </=100 or HR </=55 01/27/20 Jessa Buchanan MD metoprolol tartrate (LOPRESSOR) 25 MG tablet Take 0.5 tablets by mouth 2 times daily HOLD for SBP </=110 or HR </=55 01/27/20 Jessa Buchanan MD pantoprazole (PROTONIX) 40 MG tablet Take 1 tablet by mouth 2 times daily (before meals) 01/27/20 Paulette Buchanan MD OXYGEN Inhale 3-4 L into the lungs continuous Historical Provider, Magnesium 400 MG TABS Take by mouth Historical Provider, tiotropium (SPIRIVA RESPIMAT) 2.5 MCG/ACT AERS inhaler Inhale 2 puffs into the lungs daily 12/15/19 Hussein Sams MD acetaZOLAMIDE (DIAMOX) 250 MG tablet One tab every Thursday and 12/14/19 Hussein Sams MD aspirin 81 MG tablet Take 81 mg by mouth daily Historical Provider, FLUoxetine (PROZAC) 20 MG tablet Take 20 mg by mouth daily Historical Provider, atorvastatin (LIPITOR) 80 MG tablet Take 80 mg by mouth daily Historical Provider, albuterol (PROVENTIL) (2.5 MG/3ML) 0.083% nebulizer solution Take 2.5 mg by nebulization every 6 hours as needed for Wheezing Historical Provider, albuterol sulfate HFA (VENTOLIN HFA) 108 (90 Base) MCG/ACT inhaler Inhale 2 puffs into the lungs every 6 hours as needed for Wheezing Historical Provider, Current Facility-Administered Medications: sodium chloride flush 0.9 % injection 10 mL, 10 mL, Intravenous, 2 times per day sodium chloride flush 0.9 % injection 10 mL, 10 mL, Intravenous, PRN acetaminophen (TYLENOL) tablet 650 mg, 650 mg, Oral, Q6H PRN OR acetaminophen (TYLENOL) suppository 650 mg, 650 mg, Rectal, Q6H PRN promethazine (PHENERGAN) tablet 12.5 mg, 12.5 mg, Oral, Q6H PRN OR ondansetron (ZOFRAN) injection 4 mg, 4 mg, Intravenous, Q6H PRN sennosides-docusate sodium (SENOKOT-S) 8.6-50 MG tablet 1 tablet, 1 tablet, Oral, BID magnesium hydroxide (MILK OF MAGNESIA) 400 MG/5ML suspension 30 mL, 30 mL, Oral, Daily PRN aspirin EC tablet 81 mg, 81 mg, Oral, Daily atorvastatin (LIPITOR) tablet 80 mg, 80 mg, Oral, Daily FLUoxetine (PROZAC) capsule 20 mg, 20 mg, Oral, Daily propofol injection, 10 mcg/kg/min, Intravenous, Titrated fentaNYL (SUBLIMAZE) injection 25 mcg, 25 mcg, Intravenous, Q2H PRN OR fentaNYL (SUBLIMAZE) injection 50 mcg, 50 mcg, Intravenous, Q2H PRN methylPREDNISolone sodium (SOLU-MEDROL) injection 40 mg, 40 mg, Intravenous, Q8H cefepime (MAXIPIME) 1 g IVPB minibag, 1 g, Intravenous, Q12H azithromycin (ZITHROMAX) 500 mg in dextrose 5% 250 mL IVPB, 500 mg, Intravenous, Q24H heparin (porcine) injection 5,000 Units, 5,000 Units, Subcutaneous, 3 times per day pantoprazole (PROTONIX) injection 40 mg, 40 mg, Intravenous, Daily AND sodium chloride (PF) 0.9% injection 10 mL, 10 mL, Intravenous, Once lactated ringers infusion, , Intravenous, Continuous Allergies: Benadryl [diphenhydramine] and Codeine Social History: reports that she has quit smoking. Her smoking use included cigarettes. She smoked 1.00 pack per day. She has never used smokeless tobacco. She reports previous alcohol use. She reports that she does not use drugs. Family History: family history is not on file. No h/o sudden cardiac .Yes and No for prematureCAD REVIEW OF SYSTEMS: Constitutional: there has been no unanticipated weight loss. There's been No change in energy level, No change in activity level. Eyes: No visual changes or diplopia. No scleral icterus. ENT: No Headaches Cardiovascular: No cardiac history Respiratory: No previous pulmonary problems, No cough Gastrointestinal: No abdominal pain. No change in bowel or bladder habits. Genitourinary: No dysuria, trouble voiding, or hematuria. Musculoskeletal: No gait disturbance, No weakness or joint complaints. Integumentary: No rash or pruritis. Neurological: No headache, diplopia, change in muscle strength, numbness or tingling. No change in gait, balance, coordination, mood, affect, memory, mentation, behavior. Psychiatric: No anxiety, or depression. Endocrine: No temperature intolerance. No excessive thirst, fluid intake, or urination. No tremor. Hematologic/Lymphatic: No abnormal bruising or bleeding, blood clots or swollen lymph nodes. Allergic/Immunologic: No nasal congestion or hives. PHYSICAL EXAM: BP (!) 93/51 Pulse 76 Temp 97.8 F (36.6 C) Resp 22 Ht 5' 6 (1.676 m) Wt 222 lb 7.1 oz (100.9 kg) SpO2 97% BMI 35.90 kg/m Constitutional and General Appearance: alert, cooperative, no distress and appears stated age HEENT: PERRL, no cervical lymphadenopathy. No masses palpable. Normal oral mucosa Respiratory: Normal excursion and expansion without use of accessory muscles Resp Auscultation: Good respiratory effort. No for increased work of breathing. On auscultation: clear to auscultation bilaterally Cardiovascular: The apical impulse is not displaced Heart tones are crisp and normal. regular S1 and S2. Jugular venous pulsation Normal The carotid upstroke is normal in amplitude and contour without delay or bruit Peripheral pulses are symmetrical and full Severe systolic heart murmur due to aortic stenosis Abdomen: No masses or tenderness Bowel sounds present Extremities: No Cyanosis or Clubbing Lower extremity edema: No Skin: Warm and dry Neurological: Alert and oriented. Moves all extremities well No abnormalities of mood, affect, memory, mentation, or behavior are noted DATA: Diagnostics: EKG: Normal sinus rhythm, T wave inversions in V4 V5 V6, right bundle branch block, atrial paced rhythm ECHO:ARIA 08/28 Normal left ventricular systolic function with an estimated EF >55%. No significant wall motion abnormalities seen. The aortic valve was severely calcified and appeared to be tricuspid but the anterior leaflet does not appear to move well and therefore a functionally bicuspid aortic valve cannot be excluded. Severe aortic valve calcification consistent with severe aortic stenosis as diagnosed on transthoracic echocardiography. Consider additional testing and/or treatment if clinically indicated. Cardiac Angiography: 08/12/19 Coronary Angiography Brief Post Operative Note: Mild-moderate single vessel coronary artery disease involving a mid 40% stenosis in the right coronary artery. Normal left ventricular end diastolic pressure. Widely patent stent in the mid Cx. Proceed with aggressive maximal medical management as clinically indicated. Labs: CBC: Recent Labs 02/14/2022702/14/203 WBC 10.9 10.1 HGB 8.8* 8.6* HCT 31.9* 31.5* PLT 253 242 BMP: Recent Labs 02/14/2022702/14/203 NA 140 141 K 4.3 4.2 CO2 27 25 BUN 29* 30* CREATININE 1.48* 1.37* LABGLOM 36* 39* GLUCOSE 178* 188* BNP: No results for input(s): BNP in the last 72 hours. PT/INR: No results for input(s): PROTIME, INR in the last 72 hours. APTT:No results for input(s): APTT in the last 72 hours. CARDIAC ENZYMES:No results for input(s): CKTOTAL, CKMB, CKMBINDEX, TROPONINI in the last 72 hours. FASTING LIPID PANEL: Lab Results Component Value Date HDL 37 12/12/2019 LDLCALC 77 12/12/2019 TRIG 107 12/12/2019 LIVER PROFILE:No results for input(s): AST, ALT, LABALBU in the last 72 hours. IMPRESSION: 1. Acute hypoxic and hypercapnic respiratory failure due to acute CHF exacerbation due to severe aortic stenosis 2. Hypotension may be secondary to severe aortic stenosis 3. Acute kidney injury 4. Coronary artery disease status post stent in mid CX around 20 years ago 5. Chronic diastolic heart failure on Lasix 40 mg daily 6. Paroxysmal A. fib on Lopressor, diltiazem, not on anticoagulation 7. Severe aortic stenosis with peak and mean gradient of 70 and 49 mmHg 8. Patient Active Problem List Diagnosis Acute on chronic systolic (congestive) heart failure (HCC) PAF (paroxysmal atrial fibrillation) ([facility]) Severe aortic stenosis Hypoxia Hypomagnesemia Acute on chronic respiratory failure with hypoxia and hypercapnia ([facility]) Suspected COVID-19 virus infection Critical aortic valve stenosis Melena Acute blood loss anemia Hypotension due to drugs Bilateral pleural effusion Mediastinal lymphadenopathy Hx of coronary artery disease History of COPD Hx of type 2 diabetes mellitus Shortness of breath LIBERTY (acute kidney injury) ([facility]) Hyperkalemia Elevated LFTs Leukocytosis Elevated troponin Coronary artery disease involving chip[place]cree heart Normocytic anemia Gastroesophageal reflux disease Peptic ulcer disease Essential hypertension Hyperlipidemia Type 2 diabetes mellitus with other specified complication ([facility]) Chronic obstructive pulmonary disease ([facility]) S/P placement of cardiac pacemaker History of CVA (cerebrovascular accident) Acute on chronic heart failure with preserved ejection fraction (HFpEF) ([facility]) NSVT (nonsustained ventricular tachycardia) ([facility]) Presence of cardiac pacemaker Hx of hypotension Chronic anemia History of upper gastrointestinal bleeding Hx of gastroesophageal reflux (GERD) Hx of essential hypertension Acute respiratory failure with hypoxia ([facility]) RECOMMENDATIONS: 1. Troponin elevation secondary to hypoxia, hypotension, LIBERTY 2. Acute hypoxic and hypercapnic respiratory failure secondary to pulmonary edema due to severe aortic stenosis 3. Start patient on Lasix IV 20 mg daily for now 4. Start heparin drip for A. fib as cleared by GI in the past 5. Hold Cardizem, Lopressor for now 6. Continue aspirin 81 mg daily, atorvastatin 80 mg daily 7. Will get the old records 8. Dr Ley will plan for TAVR during this admission Will discuss with rounding attending Dr. ley for final recommendations. Elías Mcneil MD, Internal Medicine Resident, PGY-3, [facility], [place], [place]. 02/14/2020,9:00 AM I have examined the patient and reviewed the H&P/Consult / Progress note as completed , and made appropriate changes to the patient exam and treatment plans. I have reviewed the case with resident / fellow I have examined the patient personally Patient agree with treatment plan, correction in notes was made as appropriate, and discussed finalarrangement based on my evaluation and exam. Additional Recommendations: Galdino Ley MD [place] [employer] travel [employer] counselor * Roz Guerrero RCP - 02/14/2020 2:34 AM EDT Patient admitted on Mechanical Ventilator Protocol. Patients height measured at 66 for an IBW 59.3 Patient placed on the ventilator on settings as charted on flowsheeet. Ventilator Bronchodilator assessment Breath sounds: clear Inspiratory Pressure: 30 Plateau Pressure: 29 Patient assessed at level 1 [x] Bronchodilator Assessment BRONCHODILATOR ASSESSMENT SCORE Score 0 (Home) 1 2 3 4 Breath Sounds [] Chronic Ventilator: Patient at baseline [x] Mild Wheezes/ Clear [] Intermittent wheezes with good air entry [] Bilateral/unilateral wheezing with diminished air entry [] Insp/Exp wheeze and/or poor aeration Ventilator Pressures [] Chronic Ventilator [] Insp. Pressure less than 25 cm H20 [] Insp. Pressure less than 25 cm H20 [x] Insp. Pressure exceeds 25 cm H20 [] Insp. Pressure exceeds 30 cm H20 Plateau Pressure [] NA [x] Plateau Pressure less than 4 [] Plateau Pressure less than or equal to 5 [] Plateau Pressure greater than or equal to 6 [] Plateau Pressure greater than or equal to 8 Roz Guerrero 2:34 AM * Samreen John RN - 02/14/2020 12:35 AM EDT RN gave report to Rachell MICU RN and Cathy MICU RN at bedside before patient transport to MICU. RNsx 2 and RT transported to MICU via bed on ekg monitor tech, SPO2 monitor, and ventilator. * Ozzy Centeno RCP - 02/13/2020 11:52 PM EDT Patient admitted on Mechanical Ventilator Protocol. Patients height measured at 66 In for an IBW 59.3 kg Patient placed on the ventilator on settings as charted on flowsheeet. Ventilator Bronchodilator assessment Breath sounds: Clear/diminished Inspiratory Pressure: 28 Plateau Pressure: 24 Patient assessed at level 1 [x] Bronchodilator Assessment BRONCHODILATOR ASSESSMENT SCORE Score 0 (Home) 1 2 3 4 Breath Sounds [] Chronic Ventilator: Patient at baseline [x] Mild Wheezes/ Clear [] Intermittent wheezes with good air entry [] Bilateral/unilateral wheezing with diminished air entry [] Insp/Exp wheeze and/or poor aeration Ventilator Pressures [] Chronic Ventilator [] Insp. Pressure less than 25 cm H20 [] Insp. Pressure less than 25 cm H20 [x] Insp. Pressure exceeds 25 cm H20 [] Insp. Pressure exceeds 30 cm H20 Plateau Pressure [] NA [x] Plateau Pressure less than 4 [] Plateau Pressure less than or equal to 5 [] Plateau Pressure greater than or equal to 6 [] Plateau Pressure greater than or equal to 8 Ozzy Centeno 11:52 PM * Siva Cui MD - 02/13/2020 11:09 PM EDT [employer] [address] [place], [place] [address] Flight Physician Pt Name:Samreen Dawson Birthdate 1955 Date of evaluation: 02/13/20 PCP: MANJU PRESTON REASON FOR FLIGHT Patient was transported from [place] to [facility] for pulmonary edema, intubated.Flight was indicated for rapid transport to ICU, higher level of care, critical care transport. HISTORY OF PRESENT ILLNESS Samreen Dawson is a 64 y.o. female with history of CHF, COPD, paroxysmal atrial fibrillation,aortic stenosis, coronary artery disease, type 2 diabetes, who presents to the emergency departmentwith shortness of breath. Patient had also had some rhinorrhea for the past few days. Patient was on 3 L oxygen at home and had hypoxia with that. EMS was called to her house and they transported herto the hospital. Patient was then placed on BiPAP and settings were gradually increased until 20/10. Ultimately, patient required intubation for continued respiratory distress. She was intubated withetomidate and succinylcholine. Patient was given nebulizer treatment, Solu-Medrol, and was started on propofol infusion. Of note, patient has severe aortic stenosis and is currently being evaluated for valve replacement. [place] [id number] was called to transfer the patient to ICU. PRE HOSPITAL MEDICATIONS Fentanyl 100 mcg Propofol infusion PHYSICAL EXAM Physical Exam Constitutional: Appearance: She is well-developed. She is ill-appearing. She is not toxic- appearing or diaphoretic. Comments: Sedated, intubated HENT: Head: Normocephalic and atraumatic. Right Ear: External ear normal. Left Ear: External ear normal. Nose: Nose normal. Mouth/Throat: Mouth: Mucous membranes are moist. Pharynx: No posterior oropharyngeal erythema. Comments: Intubated, endotracheal tube 23 cm at the lip Eyes: General: No scleral icterus. Right eye: No discharge. Left eye: No discharge. Extraocular Movements: Extraocular movements intact. Pupils: Pupils are equal, round, and reactive to light. Neck: Trachea: No tracheal deviation. Cardiovascular: Rate and Rhythm: Normal rate and regular rhythm. Heart sounds: Normal heart sounds. No murmur. No friction rub. No gallop. Pulmonary: Effort: Pulmonary effort is normal. No respiratory distress. Breath sounds: Wheezing (Bilateral, left greater than right) and rales present. No rhonchi. Comments: Ventilated Abdominal: General: Bowel sounds are normal. There is no distension. Palpations: Abdomen is soft. There is no mass. Tenderness: There is no abdominal tenderness. There is no guarding. Skin: General: Skin is warm and dry. Capillary Refill: Capillary refill takes less than 2 seconds. Findings: No rash. Neurological: Motor: No abnormal muscle tone. MDM On [place] [address] arrival, patient was found in ER room 6, sedated with propofol 100 mcg/kg/min, hypotensive with systolic around 80, heart rate in the 60s to 70s. Propofol infusion was immediately cutin half down to 50 mcg/kg/min. Patient was being ventilated: tidal volume approximately 550, rate 15, 100% FiO2. 96% SpO2. Patient was transferred to [place] [address] monitor and placed on the ventilator. Tidal volume 480, rate 18, FiO2 50%, PEEP 10. Patient SPO2 was mid 80s, so FiO2 was increased to 70%. Patient was then transferred to [address] and secured to the [facility]. Patient was then taken to the helicopter and transferred into the vehicle. Transfer was initiated. Blood pressure was 130s systolic. Patient was given 100 mcg fentanyl. Patient stayed stable throughout the transport and SPO2 indra to mid to high 90s. On arrival at [place], patient was moved to [facility] stretcher and placed on [facility] ambulance to be transported across the street [facility]. On arrival at the [place] [facility], patient was taken out of the ambulance and up to the third floor. Patient was transferred to hospital ventilator and then transferred to the hospital bed. Report was given to bedside nurse and respiratory therapy. All questions were answered. PROCEDURES: None DESTINATION Patient arrived at [facility] in stable condition without significant changes in flight. All questions from receiving staff were answered. Siva Cui MD [facility] Physician Please note that portions of this note were completed with a voice recognition program. Efforts were made to edit the dictations but occasionally words are mis-transcribed. * Samreen John RN - 02/13/2020 11:00 PM EDT Upon patient's arrival RN placed patient on ekg monitor tech and SPO2 monitor with q15h blood pressure. Per [facility] patient had Propofol infusing at 50mcg/hr and was given 100mcg/Fent IVP while inroute. Per patient's vitals sign-patient is hypotensive see flowsheets. RN decreased Propofol to 10mcg/hr. RN placed additional PIV in patient and sent blood to the lab. RN spoke to lab and informed blood and urine specimen are on hold, waiting MD's orders. RN sent urine specimen from the [place] placed by OSH. * Samreen John RN - 02/13/2020 9:40 AM EDT RN called and spoke to ED RNGely, at [facility] and received report via phone. Patient's COVID 19 test was pending and she was going to call the hospital lab for results and call back to theUnit. RN received phone call that patient was COVID 19 negative. RN informed Nursing Sales Recruiting Coordinator of the results and he states that we need a copy of the official results faxed to [place] and placed in patient's chart. RN called [facility] for the third time spoke to Marry Baker in the ED and she faxed the results to [phone]. At this time patient arrived to [id number] via [facility]. documented in this encounter Assessments Diagnosis Acute on chronic combined systolic and diastolic CHF (congestive heart failure) ([facility]) Aortic stenosis, severe Aortic valve disorders Acute respiratory failure with hypoxia (HCC) Acute respiratory failure Hypoxia Hypoxemia Hypomagnesemia Disorders of magnesium metabolism Acute on chronic respiratory failure with hypoxia (HCC) PAF (paroxysmal atrial fibrillation) ([facility]) Atrial fibrillation Suspected COVID-19 virus infection Diagnosis Aortic stenosis, severe Aortic valve disorders Diagnosis Severe aortic stenosis Aortic valve disorders Atherosclerosis of coronary artery of [place]ree heart, angina presence unspecified, unspecified vessel or lesion type Acute on chronic diastolic heart failure (HCC) Acute on chronic diastolic heart failure Diagnosis Nonrheumatic aortic valve stenosis Aortic valve disorders Diagnosis Congestive heart failure, unspecified HF chronicity, unspecified heart failure type ([facility]) Hypoxia Hypoxemia Acute on chronic diastolic HF (heart failure) ([facility]) Acute on chronic diastolic heart failure Chronic obstructive pulmonary disease with acute exacerbation ([facility]) Obstructive chronic bronchitis with exacerbation Severe aortic stenosis by prior echocardiogram Aortic valve disorders PAF (paroxysmal atrial fibrillation) ([facility]) Atrial fibrillation Diagnosis Acute on chronic diastolic HF (heart failure) ([facility]) Acute on chronic diastolic heart failure Aortic stenosis, severe Aortic valve disorders Acute on chronic respiratory failure with hypoxia and hypercapnia ([facility]) PAF (paroxysmal atrial fibrillation) ([facility]) Atrial fibrillation Diagnosis Screening procedure Screening for unspecified condition Diagnosis Anemia, unspecified type Acute on chronic diastolic HF (heart failure) (HCC) Acute on chronic diastolic heart failure Severe aortic stenosis Aortic valve disorders Diagnosis LIBERTY (acute kidney injury) ([facility]) Acute kidney failure, unspecified Hyperkalemia Hyperpotassemia Shortness of breath Critical aortic valve stenosis Aortic valve disorders Acute on chronic systolic (congestive) heart failure ([facility]) Elevated LFTs Other abnormal blood chemistry Leukocytosis Leukocytosis, unspecified Elevated troponin Other abnormal blood chemistry Coronary artery disease involving chip[place]cree heart Normocytic anemia Anemia, unspecified Gastroesophageal reflux disease Esophageal reflux Peptic ulcer disease Peptic ulcer, unspecified site, unspecified as acute or chronic, without mention of hemorrhage, perforation, or obstruction Essential hypertension Unspecified essential hypertension Hyperlipidemia Other and unspecified hyperlipidemia Type 2 diabetes mellitus with other specified complication (HCC) Chronic obstructive pulmonary disease (HCC) Chronic airway obstruction, not elsewhere classified S/P placement of cardiac pacemaker Cardiac pacemaker in situ History of CVA (cerebrovascular accident) Transient ischemic attack (TIA), and cerebral infarction without residual deficits Acute on chronic respiratory failure with hypoxia and hypercapnia ([facility]) Acute on chronic heart failure with preserved ejection fraction (HFpEF) ([facility]) NSVT (nonsustained ventricular tachycardia) ([facility]) Paroxysmal ventricular tachycardia Presence of cardiac pacemaker Cardiac pacemaker in situ Hx of hypotension Personal history of other diseases of circulatory system Chronic anemia Anemia, unspecified History of upper gastrointestinal bleeding Personal history of other diseases of digestive system Hx of gastroesophageal reflux (GERD) Personal history of other diseases of digestive system Hx of essential hypertension Personal history of other diseases of circulatory system Severe aortic stenosis Aortic valve disorders Diagnosis Acute on chronic combined systolic and diastolic congestive heart failure ([facility]) Acute on chronic combined systolic and diastolic heart failure LIBERTY (acute kidney injury) ([facility]) Acute kidney failure, unspecified Acute respiratory failure with hypoxia ([facility]) Acute respiratory failure Stage 4 very severe COPD by GOLD classification ([facility]) Aortic stenosis with bicuspid valve Class 2 severe obesity due to excess calories with serious comorbidity and body mass index (BMI) of 35.0 to 35.9 in adult ([facility]) Gastroesophageal reflux disease Esophageal reflux Severe aortic stenosis Aortic valve disorders Diagnosis Acute on chronic diastolic HF (heart failure) ([facility]) Acute on chronic diastolic heart failure Chronic diastolic congestive heart failure ([facility]) Chronic diastolic heart failure Aortic stenosis, severe Aortic valve disorders Coronary artery disease involving [place]cree coronary artery of chip[place]cree heart without angina pectoris PAF (paroxysmal atrial fibrillation) ([facility]) Atrial fibrillation Advance Directives No Advanced Directives Records FoundDocuments on File Type Date Recorded Patient Account Manager Expl anation Advance Directives and Living Will Power of Switchboard Operator Supervisor Latest Code Status on File Code Status Date Activated Date Inactivated Comments DNR-CCA 08/26/2019 4:07 PM Full Code 08/26/2019 11:14 AM 08/26/2019 4:07 PM Full Code 07/18/2019 11:57 PM 07/21/2019 6:11 PM Documents on File Type Date Recorded Patient Account Manager Expl anation Advance Directives and Livin g Will Advance Directives and Livin g Will 08/31/2019 8:27 AM Power of Switchboard Operator Supervisor Power of Switchboard Operator Supervisor 08/31/2019 8:27 AM Latest Code Status on File Code Status Date Activated Date Inactivated Comments Full Code 09/01/2019 1:51 PM Full Code 09/01/2019 1:13 PM 09/01/2019 1:51 PM Full Code 09/01/2019 12:35 PM 09/01/2019 1:13 PM DNR-CCA 08/26/2019 4:07 PM 08/29/2019 3:45 PM Full Code 08/26/2019 11:14 AM 08/26/2019 4:07 PM Latest Code Status on File Code Status Date Activated Date Inactivated Comments Full Code 09/01/2019 1:51 PM 09/02/2019 2:41 AM Latest Code Status on File Code Status Date Activated Date Inactivated Comments Full Code 07/18/2019 11:57 PM Documents on File Type Date Recorded Patient Account Manager Expl anation Advance Directives and Livin g Will Advance Directives and Livin g Will 08/31/2019 8:27 AM Power of Switchboard Operator Supervisor Power of Switchboard Operator Supervisor 08/31/2019 8:27 AM Latest Code Status on File Code Status Date Activated Date Inactivated Comments Full Code 12/11/2019 4:24 AM Full Code 09/01/2019 1:51 PM 09/02/2019 2:41 AM Full Code 09/01/2019 1:13 PM 09/01/2019 1:51 PM Full Code 09/01/2019 12:35 PM 09/01/2019 1:13 PM DNR-CCA 08/26/2019 4:07 PM 08/29/2019 3:45 PM Documents on File Type Date Recorded Patient Account Manager Expl anation ACP-Advance Directive ACP-Advance Directive 08/31/2019 8:27 AM ACP-Power of Switchboard Operator Supervisor ACP-Power of Switchboard Operator Supervisor 08/31/2019 8:27 AM DNR Documentation 08/31/2019 8:27 AM Latest Code Status on File Code Status Date Activated Date Inactivated Comments Full Code 12/11/2019 4:24 AM 12/14/2019 5:25 PM Documents on File Type Date Recorded Patient Account Manager Expl anation ACP-Advance Directive ACP-Advance Directive 08/31/2019 8:27 AM ACP-Power of Switchboard Operator Supervisor ACP-Power of Switchboard Operator Supervisor 08/31/2019 8:27 AM DNR Documentation 08/31/2019 8:27 AM Latest Code Status on File Code Status Date Activated Date Inactivated Comments Full Code 01/25/2020 2:39 AM Full Code 12/11/2019 4:24 AM 12/14/2019 5:25 PM Full Code 09/01/2019 1:51 PM 09/02/2019 2:41 AM Latest Code Status on File Code Status Date Activated Date Inactivated Comments Limited 01/30/2020 1:15 PM Intubation/Re-intubation: No Defibrillation/Cardioversion: Yes Chest Compressions: Yes Resuscitative Medications: Yes Full Code 01/30/2020 8:16 AM 01/30/2020 1:15 PM Full Code 01/25/2020 2:39 AM 01/27/2020 9:49 PM Full Code 12/11/2019 4:24 AM 12/14/2019 5:25 PM Latest Code Status on File Code Status Date Activated Date Inactivated Comments Full Code 02/15/2020 11:17 AM Full Code 02/14/2020 12:52 AM 02/15/2020 11:17 AM Limited 01/30/2020 1:15 PM 02/03/2020 8:00 PM Full Code 01/30/2020 8:16 AM 01/30/2020 1:15 PM Full Code 01/25/2020 2:39 AM 01/27/2020 9:49 PM Documents on File Type Date Recorded Patient Account Manager Expl anation ACP-Advance Directive ACP-Power of Switchboard Operator Supervisor ACP-Advance Directive 08/31/2019 8:27 AM ACP-Do Not Resuscitate 08/31/2019 8:27 AM ACP-Power of Switchboard Operator Supervisor 08/31/2019 8:27 AM Latest Code Status on File Code Status Date Activated Date Inactivated Comments Full Code 02/15/2020 11:17 AM 02/18/2020 1:22 AM Documents on File Type Date Recorded Patient Account Manager Expl anation ACP-Advance Directive ACP-Power of Switchboard Operator Supervisor ACP-Advance Directive 08/31/2019 8:27 AM ACP-Do Not Resuscitate 08/31/2019 8:27 AM ACP-Power of Switchboard Operator Supervisor 08/31/2019 8:27 AM Latest Code Status on File Code Status Date Activated Date Inactivated Comments Full Code 02/15/2020 11:17 AM 02/18/2020 1:22 AM Full Code 02/14/2020 12:52 AM 02/15/2020 11:17 AM Limited 01/30/2020 1:15 PM 02/03/2020 8:00 PM Reason for Referral Status Reason Specialty Diagnoses / Procedures Re ferred By Contact Referred To Contact Open Cardiology Diagnoses Severe aortic stenosis Atherosclerosis of coronary artery of chip[place] heart, angina presence unspecified, unspecified vessel or lesion type Acute on chronic diastolic heart failure (HCC) Procedures Echo transesophageal (ARIA) Jean Borrero MD [address] [place] [id number] Status Reason Specialty Diagnoses / Procedures Referred By Contact Referred To Contact Authorized Radiology Diagnoses Nonrheumatic aortic valve stenosis Procedures CTA Chest W WO Contrast Ritchie Brumfield MD [address] [place] [phone] Status Reason Specialty Diagnoses / Procedures Referred By Contact Referred To Contact Not Required - [facility] Radiology Diagnoses Nonrheumatic aortic valve stenosis Procedures CTA ABDOMEN PELVIS W WO CONTRAST Ritchie Brumfield MD [address] [place] [id number] Status Reason Specialty Diagnoses / Procedures Referre d By Contact Referred To Contact Open Radiology Diagnoses Anemia, unspecified type Procedures FL SMALL BOWEL FOLLOW THROUGH ONLY Virginia Allen, RAISE DRILL OPERATOR - PLACEMENT ASSISTANT [address] [place] [address] Status Reason Specialty Diagnoses / Procedures Referre d By Contact Referred To Contact Closed Cardiology Diagnoses Chronic diastolic congestive heart failure (HCC) Severe aortic stenosis S/P TAVR (transcatheter aortic valve replacement) Coronary artery disease involving [place]cree coronary artery of [place] heart without angina pectoris S/P angioplasty with stent PAF (paroxysmal atrial fibrillation) (HCC) Procedures Echo 2D w doppler w color complete Anika Stone MD [address] [place] [phone] Summary Purpose Family History No Family History Records FoundNo Family History Records FoundNo Family History Records FoundNo Family History Records FoundNo Family History Records FoundNo Family History Records Found Additional Source Comments Reason for Visit (unrecogniz ed section and content) Reason Comments Shortness of Breath ongoing for approx 2 days and worsening- O2 saturation in 80's while on 4L NC, pt placed on NRB by EMS Status Reason Specialty Diagnoses / Procedures Referred By Contact Referred To Contact Authorized IP Unit Diagnoses Aortic stenosis Procedures HC L HEART W LV & CORONARY MS CATH PLMT L HRT & ARTS W/NJX & ANGIO IMG S&I Jean Borrero MD [address] [place] [address] [facility] Linebacker Crewmember [address] [place] [address] Status Reason Specialty Diagnoses / Procedures Referred By Contact Referred To Contact Not Required - [facility] Echocardiography Diagnoses Aortic stenosis Procedures HC TRANSESOPHAGEAL ECHO Jean Borrero MD [address] [place] [address] [facility] Echo [address] [place] [address] Status Reason Specialty Diagnoses / Procedures Referred By Contact Referred To Contact Not Required - [facility] Radiology Diagnoses Nonrheumatic aortic valve stenosis Procedures CTA ABDOMEN PELVIS W WO CONTRAST Ritchie Brumfield MD [address] [address] Reason Comments Shortness of Breath ongoing for 1 month Status Reason Specialty Diagnoses / Procedures Referre d By Contact Referred To Contact [facility] Status Reason Specialty Diagnoses / Procedures Referre d By Contact Referred To Contact Closed Cardiology Diagnoses Chronic diastolic congestive heart failure (HCC) Severe aortic stenosis S/P TAVR (transcatheter aortic valve replacement) Coronary artery disease involving [place]ree coronary artery of [place] heart without angina pectoris S/P angioplasty with stent PAF (paroxysmal atrial fibrillation) (HCC) Procedures Echo 2D w doppler w color complete Anika Stone MD [address] [place] [phone] INFORMATION SOURCE (unrecogn ized section and content) DATE CREATED AUTHOR 12/02/2019 [facility] DATE CREATED AUTHOR AUTHOR'S ORGANIZ ATION 02/09/2020 [facility] DATE CREATED AUTHOR AUTHOR'S ORGANIZ ATION 09/06/2020 [facility] DATE CREATED AUTHOR AUTHOR'S ORGANIZ ATION 10/05/2020 [facility] DATE CREATED AUTHOR AUTHOR'S ORGANIZ ATION 09/02/2022 [facility] [place] [facility] DATE CREATED AUTHOR AUTHOR'S ORGANIZ ATION 07/24/2024 [facility] FOR RECORDS PERTAINING TO PATIENTS WHO ARE OR HAVE BEEN ENROLLED IN A CHEMICAL DEPENDENCY/SUBSTANCEABUSE PROGRAM, SOME INFORMATION MAY BE OMITTED. This clinical summary was aggregated from multiple sources. Caution should be exercised in using it in the provision of clinical care. This summary normalizes information from multiple sources, and as a consequence, information in this document may materially change the coding, format and clinical context of patient data. In addition, data may be omitted in some cases. CLINICAL DECISIONS SHOULD BE BASED ON THE PRIMARY CLINICAL RECORDS. [employer] [facility]. provides no warranty or guarantee of the accuracy or completeness of information in this document.
[2024-07-27] MEDS: VALACYCLOVIR HCL 500 MG TABLET 1000 MG PO (00:22)
[2024-07-27] MEDS: OXYCODONE HCL/ACETAMINOPHEN 5MG/325MG 1 TAB PO (00:22)
--- NOTE | 2024-07-27 00:22 | PC.NURSE ---
Pt presents to ER for N/V and abdominal pain via EMS On arrival patient tells this nurse she is scheduled for a HIDA scan at 0800 today and has been having gallbladder pains and nausea/vomiting x 1 week Pt states the pain begins under her right breast and spreads around her rib cage onto her back Pt states this sounds weird but even my skin hurts This nurse performed a visualization and a shingles like rash was noted to be visible below the right breast and in a patch on her back behind her ribcage Pt was unaware of this rash being present This information was relayed to Dr. Noble
--- NOTE | 2024-07-27 00:23 | ED.GENADUL1 ---
HPI HPI - General Adult General Chief complaint: Abdominal Pain Stated complaint: ABDOMINAL PAIN Time Seen by Provider: 07/27/24 00:01 Source: patient Mode of arrival: ambulance Limitations: no limitations History of Present Illness HPI narrative: 68-year-old female presents to the emergency department for abdominal pain. She did not realize that she had a rash. She was seen here about 5 days ago with right upper quadrant pain and was diagnosed with gallstones but at that time did not have a rash. She does not know when the rash started. She has never had shingles previously. No trauma or fever. The pain is severe and continuous. Related Data Home Medications ?Medication ?Instructions ?Recorded ?Confirmed atorvastatin 80 mg tablet 80 mg PO DAILY 07/21/24 07/21/24 clopidogrel 75 mg tablet 75 mg PO DAILY 07/21/24 07/21/24 fluoxetine 20 mg capsule 20 mg PO DAILY 07/21/24 07/21/24 furosemide 40 mg tablet 40 mg PO DAILY 07/21/24 07/21/24 gabapentin 300 mg capsule 300 mg PO DAILY 07/21/24 07/21/24 losartan 50 mg tablet 50 mg PO DAILY 07/21/24 07/21/24 metformin 500 mg tablet 500 mg PO BID 07/21/24 07/21/24 pantoprazole 40 mg tablet,delayed 40 mg PO DAILY 07/21/24 07/21/24 release potassium chloride 20 mEq 20 meq PO DAILY 07/21/24 07/21/24 tablet,extended release(part/cryst) Previous Rx's ?Medication ?Instructions ?Recorded acetaminophen 300 mg-codeine 30 mg 1 tab PO Q6H PRN pain 5 days #20 07/21/24 tablet tabs ondansetron 4 mg disintegrating 4 mg PO Q6H PRN nausea and 07/21/24 tablet vomiting #20 tabs ondansetron 4 mg disintegrating 4 mg PO Q6H PRN nausea and 07/27/24 tablet vomiting #20 tabs oxycodone-acetaminophen 5 mg-325 1 tab PO Q6H PRN pain 5 days #20 07/27/24 mg tablet (Percocet) tabs valacyclovir 1 gram tablet 1,000 mg PO Q8H 10 days #30 tabs 07/27/24 (Valtrex) Allergies Allergy/AdvReac Type Severity Reaction Status Date / Time diphenhydramine (From AdvReac Severe Anaphylaxis Verified 07/27/24 00:05 Benadryl) Opioid HPI Opioid Management Most Recent Opioid Data: No Data to Display Review of Systems ROS Narrative A ten point review of systems is negative except as noted above. PFSH PFSH Social History Little interest or pleasure in doing things: not at all Feeling down, depressed, or hopeless: not at all Exam Narrative Exam Narrative: Nurses note and vital signs reviewed and patient is not hypoxic. General: The patient appears in no apparent distress. Skin: Warm, dry, no pallor noted. There is erythematous raised blistered rash present in a dermatomal distribution on the right side of the abdomen below the rib margin. There are wraps around to the midline in the back. It is not present elsewhere. Head: Normocephalic, atraumatic Eye: Normal conjunctiva, no drainage Ears, Nose, Mouth, and Throat: oral mucosa is moist. Nares patent. Cardiovascular: Regular Rate and Rhythm Respiratory: Patient is in no distress, no accessory muscle use, lungs are clear to auscultation, no wheezing, rales or rhonchi Back: non-tender GI: Nontender. See rash noted above. Musculoskeletal: The patient has no evidence of calf tenderness, no pitting edema, symmetrical pulses noted bilaterally Neurological: A&O, normal speech Psychiatric: Cooperative Constitutional Vital Signs, click to edit/add: Last Vital Signs Temp 98.1 F 07/27/24 00:01 Pulse 92 H 07/27/24 00:01 Resp 18 07/27/24 00:01 BP 150/93 H 07/27/24 00:01 Pulse Ox 96 07/27/24 00:01 Course Vital Signs Vital signs: Vital Signs Temperature 98.1 F 07/27/24 00:01 Pulse Rate 92 H 07/27/24 00:01 Respiratory Rate 18 07/27/24 00:01 Blood Pressure 150/93 H 07/27/24 00:01 Pulse Oximetry 96 07/27/24 00:01 Temperature 98.1 F 07/27/24 00:01 Pulse Rate 92 H 07/27/24 00:01 Respiratory Rate 18 07/27/24 00:01 Blood Pressure 150/93 H 07/27/24 00:01 Pulse Oximetry 96 07/27/24 00:01 Medical Decision Making MDM Narrative Medical decision making narrative: The patient now has a rash of herpes zoster and she will be treated with Valtrex and Percocet. Treatment diagnosis and follow-up were discussed with the patient. Medical Records Medical records reviewed: Yes I reviewed the patient's medical records Discharge Plan Discharge Chief Complaint: Abdominal Pain Clinical Impression: Herpes zoster Patient Disposition: Home, Self-Care Time of Disposition Decision: 00:12 Condition: Good Mode of Transportation: Private Vehicle Prescriptions / Home Meds: New oxycodone-acetaminophen [Percocet] 5-325 mg tablet 1 tab PO Q6H PRN (Reason: pain) 5 Days Qty: 20 0RF ondansetron 4 mg tablet,disintegrating 4 mg PO Q6H PRN (Reason: nausea and vomiting) Qty: 20 0RF valacyclovir [Valtrex] 1 gram tablet 1,000 mg PO Q8H 10 Days Qty: 30 0RF No Action atorvastatin 80 mg tablet 80 mg PO DAILY clopidogrel 75 mg tablet 75 mg PO DAILY fluoxetine 20 mg capsule 20 mg PO DAILY furosemide 40 mg tablet 40 mg PO DAILY gabapentin 300 mg capsule 300 mg PO DAILY losartan 50 mg tablet 50 mg PO DAILY metformin 500 mg tablet 500 mg PO BID pantoprazole 40 mg tablet,delayed release (DR/EC) 40 mg PO DAILY potassium chloride 20 mEq tablet,ER particles/crystals 20 meq PO DAILY acetaminophen-codeine 300-30 mg tablet 1 tab PO Q6H PRN (Reason: pain) 5 Days Qty: 20 0RF ondansetron 4 mg tablet,disintegrating 4 mg PO Q6H PRN (Reason: nausea and vomiting) Qty: 20 0RF Print Language: Frisian Instructions: Shingles (ED) Referrals: Ji Roldan MD [Primary Care Provider] - 1 week
== END 2024-07-27 00:40 | disposition home or self-care (01) ==
PROVIDERS: Emergency Provider Emergency Medicine; PCP Family Medicine
DX: B02.9 Zoster without complications (principal)
CPT/HCPCS: 99283

== ENCOUNTER 2024-08-04 07:55 | Outpatient (OUT) | payer MEDICARE, MEDICAID, SELFPAY ==
--- NOTE | 2024-08-04 07:55 | NM_ITS ---
The [address] [address] Patient Name: SAMREEN DAWSON MRN: [id number] date: 1955 Sex: F Assigned Patient Location: [place] Current Patient Location: [place] Accession/Order Number: [id number] Exam Date: 08/04/2024 11:33 Report Date: 08/04/2024 11:42 At the request of: RAFI WILKINS MD Procedure: NH hepatobiliary w pharm Nuclear Medicine Hepatobiliary imaging with CCK TECHNIQUE: 5.0mCi of technetium 99m labeled mebrofenin was administered intravenously. Sequential planar imaging of the upper abdomen performed. 8 ounces of Ensure ingested HISTORY: Right upper quadrant pain. Nausea and vomiting for the past week. Previous ultrasound 07/21/2024. This demonstrated mild gallbladder hydrops and cholelithiasis. Borderline prominent common duct. COMPARISON:None Homogeneous uptake of the liver identified. There is early uptake identified within the common bile duct. There is early uptake identified in the gallbladder. There is early uptake identified in the small bowel. No gallbladder emptying identified at the 20, 40 or 60 minute film. NH/NH hepatobiliary w pharm IMPRESSION: Patent cystic and common bile duct. Findings consistent with biliary dyskinesia. Impression dictated by: Federico Mandujano M.D.08/04/2024 11:42 AM Dictation Location: [place] [address] Electronically authenticated by: [id number] Y Date: 08/04/2024 11:42
== END 2024-08-04 07:56 | disposition home or self-care (01) ==
LOC: NM 07:55
PROVIDERS: PCP Family Medicine; Visit Provider Family Medicine
DX: K80.20 Calculus of gallbladder without cholecystitis without obstruction (principal); K82.8 Other specified diseases of gallbladder
CPT/HCPCS: 78227; A9537